=== PATIENT | male | born 1960 | race Caucasian/White ===

== ENCOUNTER → 2020-03-17 16:30 | Outpatient (CLI) | payer BC, SELFPAY | PROVIDERS: PCP Family Medicine | DX: R06.02 Shortness of breath (principal); R52 Pain, unspecified | CPT/HCPCS: 87635; U0003 ==

== ENCOUNTER 2020-09-17 10:23 | Emergency (ER) | payer BC, SELFPAY ==
[2020-09-17 10:23] VITALS: BP 153/75; PULSE 64; RESP 20; TEMP 36.2; O2SAT 97; BMI 30.2
--- NOTE | 2020-09-17 10:40 | EKG12_ITS ---
Test Reason : CP Blood Pressure : / mmHG Vent. Rate : 067 BPM Atrial Rate : 067 BPM P-R Int : 134 ms QRS Dur : 082 ms QT Int : 376 ms P-R-T Axes : 017 -06 040 degrees QTc Int : 397 ms Normal sinus rhythm with sinus arrhythmia Normal ECG Confirmed by AZAEL MARCUS, JESSICA ([id number]), technical editor HERNAN JACINTO ([id number]) on 09/19/2020 8:22:53 AM Referred By: AMARA Confirmed By:JESSICA ADDISON MD
--- NOTE | 2020-09-17 10:40 | RAD_ITS ---
STUDY: X-RAY CHEST REASON FOR EXAM: Male, 60 years old. cough, congestion, -- sob on exertion and chest pain TECHNIQUE: Single AP portable view of the chest. COMPARISON: 01/30/2015 FINDINGS: The lungs are clear and expanded. There is no demonstrated pleural abnormality. Normal size heart. Normal mediastinum and judy. Normal visualized pulmonary arteries. Normal visualized aortic arch and descending thoracic aorta. Normal visualized thoracic spine. Normal visualized ribs, clavicles, and shoulders. There is no demonstrated abnormality of the visualized soft tissue structures of the upper abdomen. RAD/Chest 1 View (Portable) IMPRESSION: No evidence of acute cardiopulmonary process. Electronically Signed: Jesús Rothman DO at 11:21 EST , Service support ,
--- NOTE | 2020-09-17 10:42 | ED.VISSUMM ---
- ER Visit Summary Date of Service: 09/17/20 Chief Complaint: [Cough and chest pain] History of Present Illness: The patient is a 60 M [presents to the emergency department with complaint of a cough that has had for several months. Patient states that he has been tested for COVID-19 x2 and has been negative both times. Patient's last test was about 2 weeks ago. Patient states that he has had multiple people at work that were positive for Covid. Today he went out into the cold air about an hour and a half ago and developed some chest discomfort tightness in the left upper chest. He denies any nausea or vomiting. He denies any radiation of the pain. Patient was seen at urgent care and because of the chest pain was referred to the emergency department. Patient states that he has had 2 heart attacks and has 2 cardiac stents. He thinks the last time he had stents placed was more than 4 5 years ago at the [facility]. Patient denies recent travel or surgery. Patient denies any fevers. Cough is nonproductive. Patient states he does have a history of asthma and has a as needed inhaler but has not been using it. Patient has history of diabetes. Patient did take his aspirin and Plavix this morning.] Physical Examination: [HEENT-PERRLA, EOMI. Cranial nerves II through XII grossly intact. TMs clear. Mucous membranes moist. No adenopathy. Cardiovascular-regular rate and rhythm without murmur or ectopy Lungs-clear to auscultation, chest wall stable without crepitus or subcu emphysema Abdomen-normoactive bowel sounds, soft, nontender, no rebound or rigidity, no peritoneal signs. Extremities-intact ?4, normal range of motion, normal pulses, atraumatic] Test Results: EKG obtained arrival shows sinus rhythm with a ventricular rate of 67 bpm with no acute segment changes. CBC with it was normal. Chemistries unremarkable. BUN was 21 and creatinine 1.36. Troponin was less than 0.015. D-dimer was 0.33. Covid test was negative. Chest x-ray 1 view obtained read by myself as no acute disease process. There is no evidence of infiltrate, pneumothorax, or pneumomediastinum. Radiology in agreement. [] Emergency Department Course and Treatment: [IV line established on arrival. Patient was placed on a cardiac cath lab technologist. Patient was given sublingual nitro which he did not really feel helped his discomfort. Over time he started feeling significantly improved. I recommended admission for further work-up and evaluation of his chest pain and concerned about cardiac issue and acute coronary type syndrome given his history of LA x2 and multiple stents. Patient is refusing admission. He understands his heart enzymes can take 6 or 8 hours to elevate. I recommended stress testing and further evaluation as I felt he was high risk. Patient stating that he does not have good insurance and this felt different than the last time he had his heart attacks and does not feel like he is having a heart attack and does not want to stay. Patient understands he may return to the emergency department at any time if symptoms persist or worsen. Patient will sign out AGAINST MEDICAL ADVICE. Patient is competent and understands my concerns.] Treatment Plan: [Patient advised to follow-up with primary care physician at the earliest possible time. Patient to return if worsening chest pain, increasing shortness of breath, or condition should worsen anyway.] Disposition: [Signed out AGAINST MEDICAL ADVICE] Impression: [Chest pain-etiology uncertain] This note was generated with [employer] dictation software. It may contain incorrect words, spelling, and punctuation that were not noted in review of the chart prior to signing ED Disposition - Plan for ED Patient: Referrals: Nitin Malagon MD [Primary Care Provider] -
[2020-09-17 10:51] LABS: Absolute Lymphocyte Count 1.73 X10^3/uL (0.83-4.51); Absolute Neutrophil Count 4.2 X10^3/uL (2.0-7.7); Basophil# 0.03 X10^3/uL; Basophil% 0.4 % (0-1); Eosinophil# 0.23 X10^3/uL; Eosinophils% 3.4 % (0-5); Hemoglobin 13.6 g/dL (13.0-16.5); Lymphocyte # 1.73 X10^3/ul (4.0); Lymphocyte % 25.9 % (19-41); Mean Corp Hgb Conc 32.4 g/dL (32-36); Mean Corpuscular Hgb 27.9 pg (27.0-32.0); Mean Corpuscular Volume 86.2 fL (80-94); Mean Platelet Vol. 10.2 fl (6.2-12.0); Monocyte# 0.45 X10^3/uL; Monocyte% 6.7 % (0-10); NRBC Flagged by Analyzer 0 % (0-5); Neutrophil # 4.23 X10^3/uL (2.7-7.7); Neutrophil % 63.3 % (47-70); Platelet Count 191 K/mm3 (150-450); RBC Distribution Width CV 12.1 % (11.6-14.6); RBC Distribution Width SD 38.5 fl (35.1-43.9); Red Blood Count 4.87 M/mm3 (4.6-6.2); White Blood Count 6.7 K/mm3 (4.4-11.0)
[2020-09-17] MEDS: 0.9% Normal Saline 1,000 ML 150 ML IV (11:01)
[2020-09-17 11:02] VITALS: BP 179/61; PULSE 68
[2020-09-17] MEDS: Nitroglycerin SL (ED/IMG/CATH) 0.4 MG TABLET SUBLINGUAL ×3 (11:02→11:12)
[2020-09-17 11:06] LABS: D-Dimer Quantitative (DVT/PE) 0.33 FEU/ug/m (0.27-0.49)
[2020-09-17 11:07] VITALS: BP 147/70; PULSE 68
[2020-09-17 11:10] LABS: Anion Gap 8 (5-15); BUN 21 mg/dL (7-18); BUN/Creat Ratio 15.4 RATIO (10-20); Calcium,Total 10.2 mg/dL (8.5-10.1); Chloride 107 mmol/L (98-107); Creatinine, Serum 1.36 mg/dL (0.70-1.30); EST Glomerular Filtration Rate 57 mL/min (>60); Est Glom Filt Rate - Afr Amer 68 mL/min (>60); Estimated Creatinine Clearance 55.18 ml/min; Glucose 172 mg/dL (74-106); Potassium 4.8 mmol/L (3.5-5.1); Sodium Level 137 mmol/L (136-145)
[2020-09-17 11:12] VITALS: BP 137/71; PULSE 70
[2020-09-17 11:57] VITALS: BP 153/78; PULSE 70; RESP 14; O2SAT 96
--- NOTE | 2020-09-17 12:00 | ED.DEP ---
ED Disposition - Plan for ED Patient: Instructions: ED Chest Pain, Uncertain Cause Referrals: Nitin Malagon MD [Primary Care Provider] - As soon as possible
--- NOTE | 2020-09-17 12:06 | ED.RN ---
Pt states he does not want to stay. States it's not my heart then asks this RN, so what's wrong with me? Informed pt that Dr. Solis wanted to admit him to the hospital for observation and possible additional testing and pt states again well if nothing is wrong with me why do i need to stay? Pt given AMA form and encouraged to read it before signing and pt looked at it then handed it back to this RN and states i don't have to sign it and i'm not going to. Refused a copy. Asked this RN what's your name. Name provided and pt d/c.
== END 2020-09-17 11:57 | disposition left against medical advice (07) ==
LOC: ED 11:18
PROVIDERS: Emergency Provider Emergency Medicine; PCP Family Medicine
DX: R07.9 Chest pain, unspecified (principal); I25.10 Atherosclerotic heart disease of native coronary artery without angina pectoris; I25.2 Old myocardial infarction; E11.9 Type 2 diabetes mellitus without complications; J45.909 Unspecified asthma, uncomplicated; Z95.5 Presence of coronary angioplasty implant and graft; Z79.02 Long term (current) use of antithrombotics/antiplatelets; Z79.82 Long term (current) use of aspirin; Z79.84 Long term (current) use of oral hypoglycemic drugs; Z79.899 Other long term (current) drug therapy; Z53.29 Procedure and treatment not carried out because of patient's decision for other reasons
CPT/HCPCS: 71045; 80048; 84484; 85025; 85379; 87426; 93005; 96360; 99285; J7030; A4216

== ENCOUNTER 2021-05-06 11:22 | Observation (INO) | payer BC, SELFPAY ==
[2021-05-06] VITALS (12 sets, daily range): BP systolic 142–183; BP diastolic 75–89; PULSE 76–89; RESP 12–18; TEMP 36.3–37.4; O2SAT 95–100; BMI 30.4; BMI 31.1
--- NOTE | 2021-05-06 12:03 | RAD_ITS ---
STUDY: X-RAY - RIGHT FOOT CLINICAL: Male, 61 years old. ? Osteo TECHNIQUE: 3 view(s) of the foot. COMPARISON: None. FINDINGS: Normal talus, calcaneus, and tarsal bones. Moderate plantar calcaneal enthesophyte. Normal visualized subtalar, talonavicular, calcaneocuboid, tarsal and tarsometatarsal articulations. Normal metatarsi. Normal metatarsophalangeal joint of the great toe. Normal tibial and fibular sesamoid bones. Normal interphalangeal joint of the great toe. Normal phalanges of the great toe. Normal second through fifth metatarsophalangeal joints. Normal interphalangeal joints and phalanges of the lesser toes. Soft tissue swelling the first digit with a radiolucency involving the tibial aspect of the digit near the interphalangeal joint worrisome for an ulcer. Associated periosteal reaction and bony destruction of the tibial aspect of the base of the first distal phalanx worrisome for osteomyelitis. RAD/Foot min 3 Views IMPRESSION: Suspect cellulitis with ulcer of the first digit with osteomyelitis of the tibial aspect of the base of the first distal phalanx. Electronically Signed: Manfred Broderick MD at 12:43 EDT Tel , Service support ,
[2021-05-06 12:37] LABS: Absolute Lymphocyte Count 1.16 X10^3/uL (0.83-4.51); Absolute Neutrophil Count 5.5 X10^3/uL (2.0-7.7); Basophil# 0.02 X10^3/uL; Basophil% 0.3 % (0-1); Eosinophil# 0.18 X10^3/uL; Eosinophils% 2.4 % (0-5); Hemoglobin 11.7 g/dL (13.0-16.5); Lymphocyte # 1.16 X10^3/ul (0.83-4.51); Lymphocyte % 15.8 % (19-41); Mean Corp Hgb Conc 33.4 g/dL (32-36); Mean Corpuscular Hgb 27.1 pg (27.0-32.0); Mean Platelet Vol. 9.4 fl (6.2-12.0); Monocyte# 0.43 X10^3/uL; Monocyte% 5.9 % (0-10); NRBC Flagged by Analyzer 0 % (0-5); Neutrophil # 5.52 X10^3/uL (2.7-7.7); Neutrophil % 75.1 % (47-70); Platelet Count 270 K/mm3 (150-450); RBC Distribution Width CV 14.1 % (11.6-14.6); RBC Distribution Width SD 41.7 fl (35.1-43.9); Red Blood Count 4.32 M/mm3 (4.6-6.2); White Blood Count 7.4 K/mm3 (4.4-11.0)
[2021-05-06 12:40] LABS: Erythrocyte Sedimentation Rate 28 mm/hr (0-20)
[2021-05-06 12:46] LABS: Anion Gap 7 (5-15); BUN 17 mg/dL (7-18); Calcium,Total 9.6 mg/dL (8.5-10.1); Chloride 100 mmol/L (98-107); Creatinine, Serum 1.31 mg/dL (0.70-1.30); EST Glomerular Filtration Rate 59 mL/min (>60); Est Glom Filt Rate - Afr Amer 71 mL/min (>60); Estimated Creatinine Clearance 56.56 ml/min; Glucose 216 mg/dL (74-106); Potassium 4.6 mmol/L (3.5-5.1); Sodium Level 133 mmol/L (136-145)
[2021-05-06 12:59] LABS: Lactic Acid 1.9 mmol/L (0.4-1.9)
--- NOTE | 2021-05-06 14:11 | EX.ED.DYSGE1 ---
HPI History of Present Illness Chief Complaint: Wound Narrative Narrative: Patient is a 61-year-old male with past medical history of hypertension hyperlipidemia and diabetes. He states he just takes oral medications for his diabetes. He reports that he developed a ulcer to his right great toe and has been seeing wound care and going to hyperbaric treatment. He states that they noticed his right great toe was becoming red and swollen and placed him on Bactrim and Keflex. He states he has been on these for approximately 10 days and has had persistent worsening of symptoms. He denies any fevers or chills and states his blood sugars have been near their baseline. However he was evaluated at wound care today and with the worsening symptoms despite taking antibiotics was advised to come to the hospital for evaluation [facility] Medical History Diabetes mellitus Heart disease HTN (hypertension) Toe infection Home Medications albuterol sulfate 1 - 2 puff INHALATION Q4H PRN PRN 09/17/20 [History Last Taken Unknown] aspirin 81 mg PO DAILY@0800 09/17/20 [History Last Taken Unknown] carvedilol 6.25 mg PO BID 09/17/20 [History Last Taken Unknown] clopidogrel 75 mg PO DAILY 09/17/20 [History Last Taken Unknown] fluticasone propionate 2 puff IH DAILY 09/17/20 [History Last Taken Unknown] glimepiride 8 mg PO DAILY 09/17/20 [History Last Taken Unknown] lisinopril 20 mg PO DAILY 09/17/20 [History Last Taken Unknown] metformin 1,000 mg PO BID 09/17/20 [History Last Taken Unknown] rosuvastatin 10 mg PO QHS 09/17/20 [History Last Taken Unknown] sertraline 100 mg PO DAILY 09/17/20 [History Last Taken Unknown] cephalexin 500 mg PO Q6H 05/06/21 [History Last Taken Unknown] sitagliptin [Januvia] 100 mg PO DAILY 05/06/21 [History Last Taken Unknown] tramadol 50 mg PO Q6H 05/06/21 [History Last Taken Unknown] Allergy/AdvReac Type Severity Reaction Status Date / Time No Known Allergies Allergy Verified 05/06/21 11:44 Surgical History (Updated 05/06/21 @ 11:41 by José Miguel Shetty) Hx of cardiac cath Social History Smoking Status: Never smoker ROS ROS ED Constitutional Constitutional ED: Denies chills or fever(s) ENT ENT ED: Denies sore throat Cardiovascular Cardiovascular: Denies chest pain Respiratory/Chest Respiratory/Chest: Denies cough or dyspnea Gastrointestinal Gastrointestinal: Denies abdominal pain, diarrhea, nausea or vomiting Genitourinary Genitourinary ED: Denies dysuria Musculoskeletal Musculoskeletal: Reports other Details: Positive right great toe pain ; Denies myalgias Integumentary Reports other Details: Positive right great toe redness and swelling ; Denies rash Neurologic Neurologic: Denies headache(s) Hematologic/Lymphatic Hematologic/Lymphatic: Denies easy bleeding or easy bruising EXAM Physical Exam Const Vital Signs: 05/06/21 11:23 05/06/21 11:35 05/06/21 11:43 Temperature 97.3 F L 98.4 F 98.4 F Temperature Source Temporal Oral Oral Pulse Rate 81 78 79 Respiratory Rate 18 16 16 Blood Pressure 165/87 H 165/80 H 165/80 H Blood Pressure Mean 113 108 108 Pulse Ox 99 97 97 Oxygen Delivery Method Room Air Room Air Room Air 05/06/21 12:33 05/06/21 13:00 Temperature 98.7 F 98.7 F Temperature Source Oral Temporal Pulse Rate 79 82 Respiratory Rate 12 18 Blood Pressure 165/87 H 142/79 H Blood Pressure Mean 113 100 Pulse Ox 97 98 Oxygen Delivery Method Room Air Room Air Positive well nourished and well developed General Appearance ED: well developed HEENT Reports moist mucous membranes Eyes PERRL and EOMs intact bilaterally Neck supple Resp normal respiratory effort and clear to auscultation bilaterally Cardio regular rate and regular rhythm GI normal to inspection, nondistended, normoactive bowel sounds, non-tender and non-distended Auscultation: normoactive bowel sounds Palpation: soft Extremity Extremity Narrative: Right lower extremity is neurovascularly intact. Patient has asymmetric erythema warmth and swelling of the right great toe that extends back into the proximal portion of the foot with faint streaking to the ankle. There is some fluctuance of the dorsal aspect of the right great toe as well concerning for possible abscess. Patient does have a diabetic ulcer on the medial aspect of the right great toe however this shows no obvious secondary changes to suggest infection with no purulent discharge present Neuro oriented x3 and CN's II-XII intact bilaterally Sensorium / Orientation: alert Psych mental status grossly normal Skin Skin Narrative: Soft tissue changes to the right great toe as documented above MDM MDM MDM Narrative Medical decision making narrative: Patient into the ER afebrile. His exam is consistent with cellulitis and there is concern for underlying osteomyelitis especially with the fact he has been failing outpatient therapy. Basic work-up was obtained does show an elevated CRP at 75 but normal white count and lactic acid value. X-ray however does question changes concerning for osteomyelitis. Therefore at this time he will be started on Vanco and Zosyn after blood cultures obtained. With his report of recent antibiotic use and continuing or worsening of infection he does qualify for failure of outpatient treatment. Therefore patient will be mated to the hospital at this time for continued IV antibiotics and evaluation by podiatry Lab Data Attestation: I reviewed the patient's lab results. Labs: Laboratory Results - last 24 hr 05/06/21 05/06/21 05/06/21 12:19 12:20 12:20 WBC 7.4 RBC 4.32 L Hgb 11.7 L Hct 35.0 L MCV 81.0 MCH 27.1 MCHC 33.4 RDW Std Deviation 41.7 RDW Coeff of Divya 14.1 Plt Count 270 MPV 9.4 Immature Gran % (Auto) 0.500 Neut % (Auto) 75.1 H Lymph % (Auto) 15.8 L [place] % (Auto) 5.9 Eos % (Auto) 2.4 Baso % (Auto) 0.3 Absolute Neuts (auto) 5.5 Absolute Lymphs (auto) 1.16 Nucleated RBC % 0 ESR 28 H Sodium 133 L Potassium 4.6 Chloride 100 Carbon Dioxide 26.0 Anion Gap 7 BUN 17 Creatinine 1.31 H Estim Creat Clear Calc 56.56 Est GFR (MDRD) Af Amer 71 Est GFR (MDRD) Non-Af 59 L BUN/Creatinine Ratio 13.0 Glucose 216 H Lactic Acid 1.9 Calcium 9.6 C-React Prot Ext Range 75.50 H Radiography Diagnostic Testing: Radiology Impression Foot X-Ray 05/06/21 12:03 IMPRESSION: Suspect cellulitis with ulcer of the first digit with osteomyelitis of the tibial aspect of the base of the first distal phalanx. Electronically Signed: Manfred Broderick MD at 12:43 EDT Tel , Service support , Discharge Plan Triage Chief Complaint: Wound ED Provider: Suraj Bosch Dx/Rx/DC Orders Clinical Impression: Osteomyelitis, Failure of outpatient treatment Prescriptions: No Action fluticasone propionate 50 MCG blister with device 2 puff IH DAILY RF: 0 carvedilol 6.25 MG tablet 6.25 mg PO BID RF: 0 lisinopril 20 MG tablet 20 mg PO DAILY RF: 0 sertraline 100 MG tablet 100 mg PO DAILY RF: 0 clopidogrel 75 MG tablet 75 mg PO DAILY RF: 0 metformin 1,000 MG tablet 1,000 mg PO BID RF: 0 glimepiride 4 MG tablet 8 mg PO DAILY RF: 0 aspirin 81 MG tablet,chewable 81 mg PO DAILY@0800 RF: 0 albuterol sulfate 1 INHALER inhaler 1 - 2 puff INHALATION Q4H PRN PRN (Reason: Wheezing) RF: 0 rosuvastatin 10 MG tablet 10 mg PO QHS RF: 0 tramadol 50 mg tablet 50 mg PO Q6H RF: 0 cephalexin 500 mg capsule 500 mg PO Q6H RF: 0 Januvia 100 mg tablet 100 mg PO DAILY RF: 0 Primary Care Provider: Nitin Malagon Referrals: Nitin Malagon MD [Primary Care Provider] - Disposition Disposition: Acute Care [facility]
--- NOTE | 2021-05-06 14:39 | EKG12_ITS ---
Test Reason : Blood Pressure : / mmHG Vent. Rate : 079 BPM Atrial Rate : 079 BPM P-R Int : 148 ms QRS Dur : 080 ms QT Int : 390 ms P-R-T Axes : 013 -12 013 degrees QTc Int : 447 ms Normal sinus rhythm Inferior infarct , age undetermined Abnormal ECG Confirmed by AZAEL MARCUS, JESSICA ([id number]), publications editor HERNAN JACINTO ([id number]) on 05/09/2021 9:58:48 AM Referred By: LILLY Confirmed By:JESSICA ADDISON MD
--- NOTE | 2021-05-06 14:59 | HP.PCM.HOS_ITS ---
HPI - General General Date of Admission: 05/06/21 Chief Complaint: Right great toe ulcer HPI Narrative ROSETTA STEWART, is a 61 M with 3 of coronary artery status post stents, diabetes mellitus type 2 came to ED for right great toe ulcer for 2 to 3 months. Patient follows forest officer in [facility]. This all started after he had partial right great toenail removal about a year ago which was very slow to heal. After that he noticed ulcer about 3 months ago for which he had been undergoing hyperbaric therapy for last 6 weeks, total 40 sessions and completed 1 week course of Bactrim and Keflex but is still not healing. Patient further said he had MRI about 6 days ago which was inconclusive and an x-ray on 05/01 which did not report osteomyelitis. Patient had x-ray in [facility] ER reported cellulitis with ulcer of first visit with osteomyelitis of the base of first distal phalanx. Patient has normal WBC but elevated ESR and CRP. No reported history of fever chills, vomiting, headache or other systemic symptoms of infection. Patient received 1 dose of vancomycin and Zosyn in ED. He further said his blood sugar is about 180 mg/dL but not above 200 mg/dL. He had cardiac stents 2 to 3 years ago and reported good exercise capacity. [facility] Medical History Diabetes mellitus Heart disease HTN (hypertension) Toe infection Home Medications albuterol sulfate 1 - 2 puff INHALATION Q4H PRN PRN 09/17/20 [History Last Taken Unknown] aspirin 81 mg PO DAILY@0800 09/17/20 [History Last Taken Unknown] carvedilol 6.25 mg PO BID 09/17/20 [History Last Taken Unknown] clopidogrel 75 mg PO DAILY 09/17/20 [History Last Taken Unknown] fluticasone propionate 2 puff IH DAILY 09/17/20 [History Last Taken Unknown] glimepiride 8 mg PO DAILY 09/17/20 [History Last Taken Unknown] lisinopril 20 mg PO DAILY 09/17/20 [History Last Taken Unknown] metformin 1,000 mg PO BID 09/17/20 [History Last Taken Unknown] rosuvastatin 10 mg PO QHS 09/17/20 [History Last Taken Unknown] sertraline 100 mg PO DAILY 09/17/20 [History Last Taken Unknown] cephalexin 500 mg PO Q6H 05/06/21 [History Last Taken Unknown] sitagliptin [Januvia] 100 mg PO DAILY 05/06/21 [History Last Taken Unknown] tramadol 50 mg PO Q6H 05/06/21 [History Last Taken Unknown] Allergy/AdvReac Type Severity Reaction Status Date / Time No Known Allergies Allergy Verified 05/06/21 11:44 Surgical History Hx of cardiac cath Social History Smoking Status: Never smoker ROS ROS Narrative Constitutional: No fever or chills. Does not report fatigue and weakness HEENT: Reports systems reviewed and no addt'l complaints, except as documented Respiratory/Chest: Denies chest pain, shortness of breath at rest or with exertion Gastrointestinal: Denies coffee ground emesis, hematemesis or vomiting Genitourinary: Denies burning urination or new urinary tract symptoms Musculoskeletal: Reports joint pain and limited range of motion Neurologic: Denies seizure-like activity skin: Ulcer as mentioned in HPI Endocrinology: Reports systems reviewed and no addt'l complaints, except as documented Hematologic/Lymphatic: Reports systems reviewed and no addt'l complaints, except as documented Rest 12 ROS are negative except as mentioned in HPI Vital Signs Vital Signs Vital Signs: 05/06/21 11:23 05/06/21 11:35 05/06/21 11:43 Temperature 97.3 F L 98.4 F 98.4 F Temperature Source Temporal Oral Oral Pulse Rate 81 78 79 Respiratory Rate 18 16 16 Blood Pressure 165/87 H 165/80 H 165/80 H Blood Pressure Mean 113 108 108 Pulse Ox 99 97 97 Oxygen Delivery Method Room Air Room Air Room Air 05/06/21 12:33 05/06/21 13:00 05/06/21 14:23 Temperature 98.7 F 98.7 F 98.9 F Temperature Source Oral Temporal Oral Pulse Rate 79 82 79 Respiratory Rate 12 18 18 Blood Pressure 165/87 H 142/79 H 164/82 H Blood Pressure Mean 113 100 109 Pulse Ox 97 98 97 Oxygen Delivery Method Room Air Room Air Room Air 05/06/21 14:36 Temperature 98.7 F Temperature Source Oral Pulse Rate 89 Respiratory Rate 16 Blood Pressure 183/89 H Blood Pressure Mean 120 Pulse Ox 99 Oxygen Delivery Method Room Air Weight Weight: 200 lb Body Mass Index (BMI) 30.4 Physical Exam Narrative General: Alert, Oriented x3, Cooperative. obese BMI 30.4 kg/m?. HEENT: Atraumatic, PERRLA, EOMI, Normocephalic Oral: No Gingival or Mucosal Lesions/ Ulcerations Neck: Supple, No JVD, Negative Carotid Bruits Lungs: Air entry diminished in bilateral lung bases. No crepitation/rhonchi Cardiovascular: Regular rate, Regular Rhythm, Normal S1, Normal S2, No murmurs Abdomen: Bowel Sounds Present, Soft, Non Tender, Non-Distended : No renal angle tenderness. No suprapubic tenderness. Extremities: No edema, Capillary Refill Less than 3 Seconds Skin: Small deep linear ulcer over medial aspect of right great toe, reaching to deep muscles. Musculoskeletal: No Tenderness to Palpation of Joints or Extremities Neurological: Cranial nerves II-XII grossly intact, DTR 2+/4 and Symmetrical, Neuro grossly intact Psych/Mental Status: Normal Affect, Appropriate. Results Lab / Micro Data Result Diagrams: 05/06/21 12:20 05/06/21 12:20 Labs: Laboratory Results - last 24 hr 05/06/21 12:19: Lactic Acid 1.9 05/06/21 12:20: WBC 7.4, RBC 4.32 L, Hgb 11.7 L, Hct 35.0 L, MCV 81.0, MCH 27.1, MCHC 33.4, RDW Std Deviation 41.7, RDW Coeff of Divya 14.1, Plt Count 270, MPV 9.4, Immature Gran % (Auto) 0.500, Neut % (Auto) 75.1 H, Lymph % (Auto) 15.8 L, Coleman % (Auto) 5.9, Eos % (Auto) 2.4, Baso % (Auto) 0.3, Absolute Neuts (auto) 5.5, Absolute Lymphs (auto) 1.16, Nucleated RBC % 0, ESR 28 H 05/06/21 12:20: Sodium 133 L, Potassium 4.6, Chloride 100, Carbon Dioxide 26.0, Anion Gap 7, BUN 17, Creatinine 1.31 H, Estim Creat Clear Calc 56.56, Est GFR (MDRD) Af Amer 71, Est GFR (MDRD) Non-Af 59 L, BUN/Creatinine Ratio 13.0, Glucose 216 H, Calcium 9.6, C-React Prot Ext Range 75.50 H Micro: Microbiology 05/06/21 12:13 Nasal Secretion SARS-CoV-2 Antigen (Rapid) - Final Radiology Impression Foot X-Ray 05/06/21 12:03 IMPRESSION: Suspect cellulitis with ulcer of the first digit with osteomyelitis of the tibial aspect of the base of the first distal phalanx. Electronically Signed: Manfred Broderick MD at 12:43 EDT Tel , Service support , Assessment & Plan Assessment/Plan (1) Osteomyelitis: PLAN: 1. Right great toe chronic nonhealing deep ulcer with suspicion of osteomyelitis: Patient is being admitted to [facility] floor. Discussed with the forest officer Dr. Orosco. She agreed to do deep culture and then start the antibiotic but unfortunately patient had 1 dose of Zosyn in ED. After that, patient can be started on vancomycin and Zosyn for broad-spectrum coverage of aerobes, anaerobes and MRSA as ulcer is not healing for 2 to 3 months and had antibiotic as an outpatient. Further care as per forest officer. 2. Coronary artery status post stents: Patient denies any recent angina or MA. 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 His last stent was 2 to 3 years ago therefore Plavix is being held in anticipation of requirement of surgery. Continue baby aspirin and other cardiac medications including carvedilol and rosuvastatin 3. CKD stage IIIa: Patient creatinine is 1.31 and was 1.36 in September 2020. BUN normal. Continue lisinopril. 4. Hypertension: Blood pressure is high in ED 183/69, 164/82. We will start on amlodipine 5 mg daily. 5. Diabetes mellitus type 2, uncontrolled: A1c tomorrow a.m. Accu-Cheks before meals and at bedtime. Hold oral antidiabetic home regimen. Glucose in BMP 216. Started on Lantus 15 units subcutaneous at bedtime daily. Humalog 5 units subcutaneous 3 times daily AC with meals. 6. Other comorbidities include asthma, mild anxiety: Asthma is stable With no exacerbation continue his home medications routine fluticasone inhaler. Albuterol inhaler as needed. Hold tramadol. Living will/advanced directive/end of life care: Patient does not have living will or advanced directive. After discussion of benefits/risks procedures involved with full code, DNR CC arrest and DNR CC, the patient opted for DNR-CC Arrest with no intubation Patient does not want artificial life support including intubation, tube feed, ventilator and/chest compression, central venous catheter, vasopressor and DC shock if needed Total time spent in [id number] encounter in discussion of advanced directive 16 minutes. Microbiology Past 72 Hours 05/06/21 12:13 Nasal Secretion SARS-CoV-2 Antigen (Rapid) - Final Laboratory Results 05/06/21 12:19: Lactic Acid 1.9 05/06/21 12:20: WBC 7.4, RBC 4.32 L, Hgb 11.7 L, Hct 35.0 L, MCV 81.0, MCH 27.1, MCHC 33.4, RDW Std Deviation 41.7, RDW Coeff of Divya 14.1, Plt Count 270, MPV 9.4, Immature Gran % (Auto) 0.500, Neut % (Auto) 75.1 H, Lymph % (Auto) 15.8 L, Coleman % (Auto) 5.9, Eos % (Auto) 2.4, Baso % (Auto) 0.3, Absolute Neuts (auto) 5.5, Absolute Lymphs (auto) 1.16, Nucleated RBC % 0, ESR 28 H 05/06/21 12:20: Sodium 133 L, Potassium 4.6, Chloride 100, Carbon Dioxide 26.0, Anion Gap 7, BUN 17, Creatinine 1.31 H, Estim Creat Clear Calc 56.56, Est GFR (MDRD) Af Amer 71, Est GFR (MDRD) Non-Af 59 L, BUN/Creatinine Ratio 13.0, Glucose 216 H, Calcium 9.6, C-React Prot Ext Range 75.50 H 05/06/21 12:20: Phosphorus Pending, Prealbumin Pending Charges/Coding Visit Charges Inpatient E&M: 92647 Init Hosp L3 Procedures Hospitalists Procedures: 57843 Advncd Care Plan 30 Min
--- NOTE | 2021-05-06 15:01 | PCS.PANDOC ---
PANDEMIC DOCUMENTATION INITIATED: Date: 03/26/2021 Time: 190
[2021-05-06 15:39] LABS: Phosphorus 2.6 mg/dL (2.5-4.9)
--- NOTE | 2021-05-06 15:41 | ED.RN ---
dr. perez at bedside.
--- NOTE | 2021-05-06 16:01 | PCM.CONS.GEN ---
Assessment & Plan Assessment/Plan (1) Osteomyelitis: (2) Failure of outpatient treatment: (3) Ulcer of right foot with necrosis of bone: (4) Type 2 diabetes mellitus with diabetic polyneuropathy: (5) Hallux limitus of right foot: PLAN: I reviewed and discussed his case today. Debridement was performed to the ulcer site after verbal consent with a 15 blade scalpel to excise devitalized subcutaneoius, biofilm, slough, and fibrous tissue. Pressure was applied to maintain hemostasis and he tolerated this well. Post debridement measurement was 7 mm x 3 mm x 3 mm. He is afebrile vital signs stable. His white blood cell count is 7.8, ESR 28, C-reactive protein 75.5. He has a lactic acid of 1.9. Clinically his right foot is infected and there is concern of deeper bone or tissue exposure. It appears he has already been treated for Latif grade 3 ulcer, potentially osteomyelitis at the wound healing center as he has completed hyperbaric oxygen therapy course. After the ulcer was debrided in a subcutaneous excisional manner, a deep wound culture was obtained including aerobic, anaerobic, and MRSA PCR. I recommend requesting medical records. If his MRI was indeed over 2 months old it would be helpful to repeat this. Otherwise, his updated x-ray of the foot obtained today demonstrates osseous destruction and direct correlation with the ulcer site with clinical probe to deep structures with this consistent with osteomyelitis diagnosis. Dressing: Betadine wet-to-dry Offload: Heel weightbearing with surgical shoe. To use assistive device Vascular: He had previous lower extremity intervention and medical records will be recommended prior to ordering any updated vascular tests or consultations. It is noted he has small vessel calcification even on his foot x-ray. Host factors: He is uncontrolled diabetes with a self-reported A1c of over 9%. He understands this in combination with his known vascular disease make healing difficult. I recommend nutritional education to optimize healing. Medical management per primary team is greatly appreciated. I recommend starting broad-spectrum IV antibiotics and initiating an extended course of IV antibiotics for treatment of a Latif grade 3 ulcer with presumed osteomyelitis. He was also educated on all treatment options including amputation. A deep wound culture was obtained today as noted. We discussed the benefits and risks of all treatment options. He refuses an amputation. I recommend infectious disease consultation. I answered all the patient's questions. Thank you for the consultation. Please do not hesitate to call if you have any questions. Natali Orosco DPM, [facility] [phone] HPI Consult Data Date of Consult: 05/06/21 HPI Narrative Reason for Consultation: right great toe chronic ulcer HPI Narrative: ROSETTA STEWART, is a 61 M uncontrolled diabetic (A1C reported over 9) who presents for right great toe ulcer. He is having difficulty explaining the timeline (poor historian), however it appears this ulcer has been present for over 6 months. He reports he had a an ingrown toenail procedure performed and then the dressing compromised his skin and he developed a ulcer on the bottom of his toe. He reports he then underwent vascular intervention to restore the blood flow to his leg which helped initially at first. He relates he is currently following with a cutting department supervisor in [facility] in the [facility] setting. He is also been seen at the [facility] and underwent hyperbaric oxygen therapy. He relates his status worsened within the past 2 weeks in which he noticed redness and anteriorization. He was placed on Keflex which was stopped a couple of days ago and Bactrim in which he completed this yesterday. He still has moderate pain which is not consistent with his baseline and redness extending to the top of the midfoot. At first he said the MRI was 6 days ago and then it sounds like it was really 2 to 3 months ago at a location somewhere in [place]. He also reports he had an x-ray on which was inconclusive for osteomyelitis. He relates he is not offloading in a compliant manner. He recently retired and relates he has been sitting around more. Prior to that he was wearing steel toe shoes. He continues to need to do his yard work. He does have some altered sensation but can feel wound manipulation. He is not able to describe if he is experiencing current claudication symptoms. He relates this is very depressing and he refuses to consider a toe amputation. He reports having a toe amputation would cause him to consider his life. [facility] Medical History (Updated 05/06/21 @ 17:11 by Janay Epperson) Anxiety Chest pain Depression Diabetes mellitus Heart disease HTN (hypertension) Myocardial infarct Toe infection Home Medications albuterol sulfate 1 - 2 puff INHALATION Q4H PRN PRN 09/17/20 [History Last Taken Unknown] aspirin 81 mg PO DAILY@0800 09/17/20 [History Last Taken Unknown] carvedilol 6.25 mg PO BID 09/17/20 [History Last Taken Unknown] clopidogrel 75 mg PO DAILY 09/17/20 [History Last Taken Unknown] fluticasone propionate 2 puff IH DAILY 09/17/20 [History Last Taken Unknown] glimepiride 8 mg PO DAILY 09/17/20 [History Last Taken Unknown] lisinopril 20 mg PO DAILY 09/17/20 [History Last Taken Unknown] metformin 1,000 mg PO BID 09/17/20 [History Last Taken Unknown] rosuvastatin 10 mg PO QHS 09/17/20 [History Last Taken Unknown] sertraline 100 mg PO DAILY 09/17/20 [History Last Taken Unknown] cephalexin 500 mg PO Q6H 05/06/21 [History Last Taken Unknown] sitagliptin [Januvia] 100 mg PO DAILY 05/06/21 [History Last Taken Unknown] tramadol 50 mg PO Q6H 05/06/21 [History Last Taken Unknown] Allergy/AdvReac Type Severity Reaction Status Date / Time No Known Allergies Allergy Verified 05/06/21 11:44 Surgical History (Updated 05/06/21 @ 17:11 by Janay Epperson) History of coronary artery stent placement Hx of cardiac cath Social History Smoking Status: Never smoker ROS Constitutional Constitutional: Denies chills, fatigue or fever(s) Cardiovascular Cardiovascular: Reports pedal edema; Denies claudication or vomiting Gastrointestinal Gastrointestinal: Denies nausea Musculoskeletal Musculoskeletal: Reports extremity pain Integumentary Integumentary: Reports erythema and wounds Psychiatric Psychiatric: Reports depression and suicidal thoughts Physical Exam Const alert and oriented x3 General Appearance: cooperative HEENT normocephalic Extremity Extremity Narrative: No calf tenderness Diminished pulses; dp is palpable hair noted to lower ankle level Muscle wasting noted Decreased loaded first metatarsophalangeal joint range of motion is consistent with hallux limitus General Extremity: edema and no tenderness to palpation of joints or extremities; Negative for cyanosis Skin Skin Narrative: Skin discontinuity to plantar medial right hallux measures approximately 6 x 3 x 3 mm to deep structures and possibly bone. There is hematogenous drainage only. No odor or purulence. There is intense erythema to the toe extending to the dorsal midfoot. There is no fluctuance or bogginess or palpable abscess. Neuro Neuro Narrative: Epicritic sensation light touch and pain with ulcer debridement noted Psych cooperative and affect normal Lab / Micro Data Result Diagrams: 05/06/21 12:20 05/06/21 12:20 Labs: Laboratory Results - last 24 hr 05/06/21 12:19: Lactic Acid 1.9 05/06/21 12:20: WBC 7.4, RBC 4.32 L, Hgb 11.7 L, Hct 35.0 L, MCV 81.0, MCH 27.1, MCHC 33.4, RDW Std Deviation 41.7, RDW Coeff of Divya 14.1, Plt Count 270, MPV 9.4, Immature Gran % (Auto) 0.500, Neut % (Auto) 75.1 H, Lymph % (Auto) 15.8 L, Mcnairy % (Auto) 5.9, Eos % (Auto) 2.4, Baso % (Auto) 0.3, Absolute Neuts (auto) 5.5, Absolute Lymphs (auto) 1.16, Nucleated RBC % 0, ESR 28 H 05/06/21 12:20: Sodium 133 L, Potassium 4.6, Chloride 100, Carbon Dioxide 26.0, Anion Gap 7, BUN 17, Creatinine 1.31 H, Estim Creat Clear Calc 56.56, Est GFR (MDRD) Af Amer 71, Est GFR (MDRD) Non-Af 59 L, BUN/Creatinine Ratio 13.0, Glucose 216 H, Calcium 9.6, C-React Prot Ext Range 75.50 H 05/06/21 12:20: Phosphorus 2.6, Prealbumin 18.0 L Micro: Microbiology 05/06/21 12:13 Nasal Secretion SARS-CoV-2 Antigen (Rapid) - Final Radiology Impression Foot X-Ray 05/06/21 12:03 IMPRESSION: Suspect cellulitis with ulcer of the first digit with osteomyelitis of the tibial aspect of the base of the first distal phalanx. Electronically Signed: Manfred Broderick MD at 12:43 EDT Tel , Service support ,
--- NOTE | 2021-05-06 17:31 | PCS.PANDOC ---
PANDEMIC DOCUMENTATION INITIATED: Date: 03/26/2021 Time: 190
[2021-05-06 17:42] LABS: M R Staph aureus DNA By PCR Negative (Negative); Probe Check PASS; Staph aureus DNA By PCR POSITIVE (Negative)
[2021-05-06 17:46] LABS: Bedside Glucose 109 mg/dL (70-110)
[2021-05-06] MEDS: Enoxaparin 40 MG/0.4 ML Syringe SC (18:09)
[2021-05-06] MEDS: Budesonide Respules 0.5 MG/2 ML AMPUL.NEB. INHALATION (20:44)
[2021-05-06] MEDS: Acetaminophen 325 MG Tablet 650 MG PO (20:52)
--- NOTE | 2021-05-06 21:23 | PCM.RX.CS ---
Consult Pharmacy has been consulted to manage selected antiobiotic: Vancomycin Type of Consult: New start Suspected Infection: Osteomyelitis Labs: Sodium 133 mmol/L (136-145) L 05/06/21 12:20 Potassium 4.6 mmol/L (3.5-5.1) 05/06/21 12:20 Chloride 100 mmol/L (98-107) 05/06/21 12:20 Carbon Dioxide 26.0 mmol/L (21.0-32.0) 05/06/21 12:20 Anion Gap 7 (5-15) 05/06/21 12:20 BUN 17 mg/dL (7-18) 05/06/21 12:20 Creatinine 1.31 mg/dL (0.70-1.30) H 05/06/21 12:20 Est GFR (MDRD) Af Amer 71 mL/min (>60) 05/06/21 12:20 Est GFR (MDRD) Non-Af 59 mL/min (>60) L 05/06/21 12:20 BUN/Creatinine Ratio 13.0 RATIO (10-20) 05/06/21 12:20 Glucose 216 mg/dL (74-106) H 05/06/21 12:20 Microbiology: Microbiology 05/06/21 12:13 Nasal Secretion SARS-CoV-2 Antigen (Rapid) - Final Weight used for dosin.9 kg Estimated Creatinine Clearance: 53 Goal Trough: 15-20 mcg/mL Pharmacy Plan for Drug Dosing: Pharmacy Service will continue to monitor and adjust dosing as required. Medications Vancomycin HCl (Vancomycin) 1,000 mg in 200 mls @ 200 mls/hr IV Q12H MARTINA Discontinued Medications Vancomycin HCl 2,000 mg/ (Sodium Chloride) 540 mls @ 250 mls/hr IV X1 ONE Stop: 05/06/21 14:13 Last Admin: 05/06/21 15:58 Dose: Infused Documented by: Follow-Up Labs: Trough Vancomycin Labs to be done on [date and time ordered]: 05/08 @ 1300
[2021-05-06] MEDS: Carvedilol 6.25 MG Tablet PO (21:31)
[2021-05-06] MEDS: Insulin Lispro 100 UNIT/ML INSULN.PEN SC (21:31)
[2021-05-06] MEDS: 0.9% Saline Lock 10 ML Syringe IV (21:53)
[2021-05-06 23:05] LABS: Bedside Glucose 185 mg/dL (70-110)
[2021-05-07] MEDS: Vancomycin IV 1,000 MG/200 ML BAG 200 MG IV ×2 (01:47→13:28)
[2021-05-07 01:57] VITALS: BP 133/72; PULSE 69; RESP 16; TEMP 36.6; O2SAT 97
[2021-05-07 05:52] LABS: Absolute Neutrophil Count 4.1 X10^3/uL (2.0-7.7); Basophil# 0.02 X10^3/uL; Basophil% 0.3 % (0-1); Eosinophils% 3.3 % (0-5); Hematocrit 34.4 % (40-54); Hemoglobin 11.2 g/dL (13.0-16.5); Lymphocyte % 18.4 % (19-41); Mean Corp Hgb Conc 32.6 g/dL (32-36); Mean Corpuscular Hgb 26.9 pg (27.0-32.0); Mean Corpuscular Volume 82.5 fL (80-94); Mean Platelet Vol. 9.5 fl (6.2-12.0); Monocyte# 0.51 X10^3/uL; Monocyte% 8.5 % (0-10); NRBC Flagged by Analyzer 0 % (0-5); Neutrophil # 4.09 X10^3/uL (2.7-7.7); Neutrophil % 68.5 % (47-70); Platelet Count 290 K/mm3 (150-450); RBC Distribution Width SD 42.5 fl (35.1-43.9); Red Blood Count 4.17 M/mm3 (4.6-6.2)
[2021-05-07 06:35] LABS: Anion Gap 9 (5-15); BUN 14 mg/dL (7-18); Calcium,Total 9.5 mg/dL (8.5-10.1); Chloride 103 mmol/L (98-107); Creatinine, Serum 1.17 mg/dL (0.70-1.30); EST Glomerular Filtration Rate 67 mL/min (>60); Est Glom Filt Rate - Afr Amer 81 mL/min (>60); Estimated Creatinine Clearance 63.33 ml/min; Glucose 129 mg/dL (74-106); Potassium 4.4 mmol/L (3.5-5.1); Sodium Level 138 mmol/L (136-145)
--- NOTE | 2021-05-07 06:49 | PCM.PROGNOTE ---
Subjective Subjective This 61-year-old diabetic male was seen bedside for right chronic great toe ulcer with osteomyelitis. He has failed outpatient management. He did well overnight with IV antibiotics. He denies fever, chill, nausea, vomiting. He denies foot pain. Objective Data Objective Data Vital Signs: Vital Signs Temp Pulse Resp BP Pulse Ox 97.9 F 69 16 133/72 H 97 05/07/21 01:57 05/07/21 01:57 05/07/21 01:57 05/07/21 01:57 05/07/21 01:57 Oxygen Delivery Method Room Air Weight: 92.9 kg Body Mass Index (BMI) 31.1 Intake & Output: Intake and Output for Last 24 Hours 05/05/21 05/06/21 05/07/21 23:59 23:59 23:59 Intake Total 621.25 / 621.25 250 / 250 Balance 621.25 / 621.25 250 / 250 Lab / Micro Data Result Diagrams: 05/07/21 05:20 05/07/21 05:20 Labs: Laboratory Results - last 24 hr 05/06/21 12:19: Lactic Acid 1.9 05/06/21 12:20: WBC 7.4, RBC 4.32 L, Hgb 11.7 L, Hct 35.0 L, MCV 81.0, MCH 27.1, MCHC 33.4, RDW Std Deviation 41.7, RDW Coeff of Divya 14.1, Plt Count 270, MPV 9.4, Immature Gran % (Auto) 0.500, Neut % (Auto) 75.1 H, Lymph % (Auto) 15.8 L, Upson % (Auto) 5.9, Eos % (Auto) 2.4, Baso % (Auto) 0.3, Absolute Neuts (auto) 5.5, Absolute Lymphs (auto) 1.16, Nucleated RBC % 0, ESR 28 H 05/06/21 12:20: Sodium 133 L, Potassium 4.6, Chloride 100, Carbon Dioxide 26.0, Anion Gap 7, BUN 17, Creatinine 1.31 H, Estim Creat Clear Calc 56.56, Est GFR (MDRD) Af Amer 71, Est GFR (MDRD) Non-Af 59 L, BUN/Creatinine Ratio 13.0, Glucose 216 H, Calcium 9.6, C-React Prot Ext Range 75.50 H 05/06/21 12:20: Phosphorus 2.6, Prealbumin 18.0 L 05/06/21 15:51: S.aureus Protein A PCR POSITIVE H, MRSA (PCR) Negative 05/06/21 17:36: POC Glucose 109 05/06/21 21:23: POC Glucose 185 H 05/07/21 05:20: WBC 6.0, RBC 4.17 L, Hgb 11.2 L, Hct 34.4 L, MCV 82.5, MCH 26.9 L, MCHC 32.6, RDW Std Deviation 42.5, RDW Coeff of Divya 14.0, Plt Count 290, MPV 9.5, Immature Gran % (Auto) 1.000 H, Neut % (Auto) 68.5, Lymph % (Auto) 18.4 L, Upson % (Auto) 8.5, Eos % (Auto) 3.3, Baso % (Auto) 0.3, Absolute Neuts (auto) 4.1, Absolute Lymphs (auto) 1.10, Nucleated RBC % 0 05/07/21 05:20: Sodium 138, Potassium 4.4, Chloride 103, Carbon Dioxide 26.0, Anion Gap 9, BUN 14, Creatinine 1.17, Estim Creat Clear Calc 63.33, Est GFR (MDRD) Af Amer 81, Est GFR (MDRD) Non-Af 67, BUN/Creatinine Ratio 12.0, Glucose 129 H, Calcium 9.5 Micro: Microbiology 05/06/21 12:13 Nasal Secretion SARS-CoV-2 Antigen (Rapid) - Final Radiography Diagnostic Testing: Radiology Impression Foot X-Ray 05/06/21 12:03 IMPRESSION: Suspect cellulitis with ulcer of the first digit with osteomyelitis of the tibial aspect of the base of the first distal phalanx. Electronically Signed: Manfred Broderick MD at 12:43 EDT Tel , Service support , Physical Exam Const alert and oriented x3 General Appearance: cooperative HEENT normocephalic Extremity Extremity Narrative: No calf tenderness Diminished pulses; dp is palpable hair noted to lower ankle level Muscle wasting noted Decreased loaded first metatarsophalangeal joint range of motion is consistent with hallux limitus General Extremity: edema and no tenderness to palpation of joints or extremities; Negative for cyanosis Skin Skin Narrative: Skin discontinuity to plantar medial right hallux probes to deeper structures including muscle and bone. There is hematogenous drainage only. No odor or purulence. There is intense erythema to the toe that no longer extends to the dorsal midfoot. There is no fluctuance, bogginess, or palpable abscess. There is no crepitus with manipulation of the hallux interphalangeal joint noted. Neuro Neuro Narrative: Epicritic sensation light touch and pain with ulcer debridement noted Psych cooperative and affect normal Assessment & Plan Assessment/Plan (1) Osteomyelitis: (2) Failure of outpatient treatment: (3) Ulcer of right foot with necrosis of bone: (4) Type 2 diabetes mellitus with diabetic polyneuropathy: (5) Hallux limitus of right foot: PLAN: I reviewed and discussed his case this morning. He presented with worsening cellulitis and his failed outpatient management including wound care center visits at [facility], hyperbaric oxygen therapy, and oral antibiotic use. He is afebrile with vital with signs stable. He does not have leukocytosis. At time of admission, ESR was 28 and C-reactive protein 75.5. The intensity and location of the cellulitis is decreased compared to yesterday. He is on broad-spectrum IV antibiotics including vancomycin and Zosyn. Deep wound cultures were obtained yesterday at the time of admission following ulcer debridement. These results are pending. Blood cultures are negative so far. X-rays also supports a diagnosis of osteomyelitis with osseous destruction adjacent to the ulcer site. He had an MRI performed in outside facilities and these records will be requested if we are able to locate the facility he had the test completed in [place]. Dressing change this morning: Betadine wet-to-dry Offload: Heel weightbearing with surgical shoe. To use assistive device if needed. Vascular: He had previous lower extremity intervention and medical records will be recommended prior to ordering any updated vascular tests or consultations. It is noted he has small vessel calcification even on his foot x-ray. Medical records have been requested. It is noted he is also on plavix. Host factors: He has uncontrolled diabetes with a self-reported A1c of over 9%. He understands this in combination with his known vascular disease make healing difficult. I recommend nutritional education to optimize healing. Medical management per primary team is greatly appreciated. He was also educated on all treatment options including surgical options such as amputation. We discussed the benefits and risks of all treatment options. He refuses an amputation. I recommend infectious disease consultation and antibiotic course for treatment of osteomyelitis. I answered all the patient's questions. I will follow this case while he is in house. Please do not hesitate to call if you have any questions. Natali Orosco DPM, [facility] [phone]
--- NOTE | 2021-05-07 07:02 | WOUNDNOTE ---
wound photo: right medial great toe
[2021-05-07 07:43] VITALS: BP 156/75; PULSE 72; RESP 16; TEMP 36.8; O2SAT 97
[2021-05-07] MEDS: Insulin Lispro 100 UNIT/ML INSULN.PEN 8 UNIT SC ×3 (07:54→16:29)
[2021-05-07] MEDS: Juven (unflavored) Packet 1 PACKET PO ×2 (07:54→16:29)
[2021-05-07] MEDS: Aspirin 81 MG TAB.CHEW PO (07:54)
[2021-05-07] MEDS: Insulin Lispro 100 UNIT/ML INSULN.PEN SC ×4 (07:55→22:44)
[2021-05-07 07:58] VITALS: O2SAT 95
[2021-05-07 08:06] LABS: Bedside Glucose 154 mg/dL (70-110)
[2021-05-07 08:34] LABS: Hemoglobin A1c 7.5 % (3.8-5.6)
--- NOTE | 2021-05-07 09:17 | PN.HOSP_ITS ---
Subjective Subjective Feels well. Objective Data Objective Data Vital Signs: Vital Signs Temp Pulse Resp BP Pulse Ox 36.8 C 72 16 156/75 H 95 05/07/21 07:43 05/07/21 07:43 05/07/21 07:43 05/07/21 07:43 05/07/21 07:58 Oxygen Delivery Method Room Air Weight: 92.9 kg Body Mass Index (BMI) 31.1 Intake & Output: Intake and Output for Last 24 Hours 05/05/21 05/06/21 05/07/21 23:59 23:59 23:59 Intake Total 621.25 / 621.25 250 / 250 Balance 621.25 / 621.25 250 / 250 Lab / Micro Data Result Diagrams: 05/07/21 05:20 05/07/21 05:20 Labs: Laboratory Results - last 24 hr 05/06/21 12:19: Lactic Acid 1.9 05/06/21 12:20: WBC 7.4, RBC 4.32 L, Hgb 11.7 L, Hct 35.0 L, MCV 81.0, MCH 27.1, MCHC 33.4, RDW Std Deviation 41.7, RDW Coeff of Divya 14.1, Plt Count 270, MPV 9.4, Immature Gran % (Auto) 0.500, Neut % (Auto) 75.1 H, Lymph % (Auto) 15.8 L, Sunflower % (Auto) 5.9, Eos % (Auto) 2.4, Baso % (Auto) 0.3, Absolute Neuts (auto) 5.5, Absolute Lymphs (auto) 1.16, Nucleated RBC % 0, ESR 28 H 05/06/21 12:20: Sodium 133 L, Potassium 4.6, Chloride 100, Carbon Dioxide 26.0, Anion Gap 7, BUN 17, Creatinine 1.31 H, Estim Creat Clear Calc 56.56, Est GFR (MDRD) Af Amer 71, Est GFR (MDRD) Non-Af 59 L, BUN/Creatinine Ratio 13.0, Glucose 216 H, Calcium 9.6, C-React Prot Ext Range 75.50 H 05/06/21 12:20: Phosphorus 2.6, Prealbumin 18.0 L 05/06/21 15:51: S.aureus Protein A PCR POSITIVE H, MRSA (PCR) Negative 05/06/21 17:36: POC Glucose 109 05/06/21 21:23: POC Glucose 185 H 05/07/21 05:20: WBC 6.0, RBC 4.17 L, Hgb 11.2 L, Hct 34.4 L, MCV 82.5, MCH 26.9 L, MCHC 32.6, RDW Std Deviation 42.5, RDW Coeff of Divya 14.0, Plt Count 290, MPV 9.5, Immature Gran % (Auto) 1.000 H, Neut % (Auto) 68.5, Lymph % (Auto) 18.4 L, Sunflower % (Auto) 8.5, Eos % (Auto) 3.3, Baso % (Auto) 0.3, Absolute Neuts (auto) 4.1, Absolute Lymphs (auto) 1.10, Nucleated RBC % 0 05/07/21 05:20: Sodium 138, Potassium 4.4, Chloride 103, Carbon Dioxide 26.0, Anion Gap 9, BUN 14, Creatinine 1.17, Estim Creat Clear Calc 63.33, Est GFR (MDRD) Af Amer 81, Est GFR (MDRD) Non-Af 67, BUN/Creatinine Ratio 12.0, Glucose 129 H, Calcium 9.5 05/07/21 05:20: Hemoglobin A1c 7.5 H 05/07/21 07:41: POC Glucose 154 H Micro: Microbiology 05/06/21 12:13 Nasal Secretion SARS-CoV-2 Antigen (Rapid) - Final Radiography Diagnostic Testing: Radiology Impression Foot X-Ray 05/06/21 12:03 IMPRESSION: Suspect cellulitis with ulcer of the first digit with osteomyelitis of the tibial aspect of the base of the first distal phalanx. Electronically Signed: Manfred Broderick MD at 12:43 EDT Tel , Service support , Physical Exam Const alert Exam Limitations: no limitations HEENT head/scalp atraumatic Head and Scalp: normocephalic Resp normal respiratory effort, no use of accessory muscles and clear to auscultation bilaterally Cardio regular rate, regular rhythm, S1 normal heart sound and S2 normal heart sound GI normal to inspection, nondistended, normoactive bowel sounds, soft to palpation, non-tender and non-distended Extremity normal to inspection Skin Skin Narrative: picture from Lyssa Mccurdy'beronica showed right great toe ulceration that appears superficial with surrounding erythema. Assessment & Plan Assessment/Plan (1) Osteomyelitis: QUALIFIERS: Osteomyelitis type: other acute Osteomyelitis location: foot Laterality: right Qualified Code(s): M86.171 - Other acute osteomyelitis, right ankle and foot PLAN: 1. right great toe osteomyelitis and cellulitis * despite treatement with TMP/SMX and cephalexin. * OM noted on radiograph of the tibial aspect of the base of the 1st distal phalanx. * podiatry following and have requested records from [facility] * pt very concerned about losing his toe. * abx with vanc and pip/tazo 2. DM2 uncontrolled * a1c 7.5 * continue glargine and SSI 3. CAD * s/p stents * clopidogrel held for potential surgery * continue ASA and statin 4. VTE prophylaxis: LMWH Charges/Coding Visit Charges Inpatient E&M: 41683 Subs Hosp L2
--- NOTE | 2021-05-07 10:20 | CASEMGMT ---
REJI PHILLIPS Assessment: Face to Face with pt for initial transition planning/care coordination assessment. REJI PHILLIPS introduced self and role at [facility], pt voices understanding and consents to assessment. Pt is A/O x4 and answers all questions appropriately at this time. Pt lying in bed in no distress. Care providers, pharmacy, and demographics verified/updated. Admitting Dx: Foot ulcer osteomyelitis PCP:[place] Specialists: david Higgins Pharmacy: [facility] Retail Insurance: [place] Prescription Benefit: yes LW/HPOA: Pt denies having a LW/DPOA and denies need for info regarding AD. LNOK: Caryl Vargas, mother Living Arrangements: Pt lives alone in a single story house with two steps to enter. Pt reports being I in ADL's and denies concerns at home. Transportation: Pt drives self and denies concerns with transportation. DME/HHC/SNF: Pt has a BGM. Denies previous HHC or SNF stays. Pt is retired, denies using alcohol, cigarettes, street drugs or illegal drugs. Pt has been following with the [facility] and receiving hyperbaric treatments. Pt completed 30 and states they just signed him up for 30 more. Pt states he does check his blood sugars but not as much as I should and I am not the best patient. Discussed with patient the option of the diabetic clinic, pt denies need for this. He states he had been doing very well. Pt denies need for HHC. He states he knows what he is supposed to do but does not do it. He states he does not do any drugs or alcohol but does enjoy eating/drinking soda. Pt states that he completes his own wound care twice a day. Pt does admit to feeling depressed. He states he needs to go home as to not exacerbate this further. Asked patient if he would like to speak to a social psychologist regarding his feelings. Pt did not state either way. Made him aware that his CM will notify the SW to stop in to speak with him. Notified Justina BELLE of this. Pt states no concerns with going home at time of dc. He plans to follow up at [facility] in [place]. He denies having an poultry helper. Offered info regarding endocrinology physician, pt declined. He states he has strips and lancets for his BMG. Pt states no further concerns/needs. CM to follow. Advised pt to ask CM if any further question/concerns/needs arise or should he change his mind regarding any services discussed, voices understanding. Pt Goal: Home with follow up at [facility] [place] Plan: Home with follow up at [facility] and patient to continue performing own dressing changes.
[2021-05-07] MEDS: Sertraline 100 MG Tablet PO (11:38)
[2021-05-07] MEDS: Enoxaparin 40 MG/0.4 ML Syringe SC (11:38)
[2021-05-07] MEDS: Carvedilol 6.25 MG Tablet PO ×2 (11:38→22:45)
[2021-05-07] MEDS: Lisinopril 20 MG Tablet PO (11:38)
[2021-05-07 11:46] LABS: Bedside Glucose 191 mg/dL (70-110)
--- NOTE | 2021-05-07 13:30 | CASEMGMT ---
Social Work Note SW received consult for depression as pt reported that he is depressed. SW in to speak with pt. SW introduced self and role at [facility]. Pt is alert and orientated, participates in assessment. Pt states that he has had problems with his foot since May 2020 and it is becoming a lot. Pt states he is doing everything that the doctors are telling him to do and his foot is still not getting better. Pt states that his foot will get better for some time and then will go back to not being good again. Pt states it is never ending and it is very depressing. Pt states I go to one doctor and get told one thing and then go to another doctor and get told something else. SW spoke with pt about how that can be frustrating. Pt states he does to the [facility] and was receiving Hyperbaric Chamber treatment. Pt states and then when he came to the ED he didn't like how the ED physician asked him if he wanted him to just gnaw the foot off. Pt states it isn't funny to joke to someone about losing a foot. SW informed pt that it is not funny to joke about that. Pt states one doctor will tell him he will need an amputation and then another one will say he doesn't. Pt states even if they tell him he needs one he will not be getting an amputation. Pt states he recently retired from [employer] as they started to enforce having their employers wear steel toe shoes. Pt states he is not able to wear steel toes shoes and brought in a doctors excuse explaining he can't wear steel toe shoes but states they didn't accept that so I decided to retire. Pt states he needs to leave [facility] soon as he has a house he needs to take care of. Pt states that he told his PCP about his depression and pt states he is taking antidepressants. Pt states he doesn't feel like the antidepressants are working though. Pt states that a long time ago he was in counseling for something else, pt denied currently being in counseling. SW offered to provide pt with counseling resources and pt denied. Pt states that he will try and talk to his mom about how he is feeling but states I have to take care of her and she runs her mouth to everyone about me after I ask her not to tell anyone. SW asked pt if he had any other additional supports. Pt states he has one friend but states he doesn't want to tell his friend. SW asked pt about any history of suicidal thoughts/plans/ideations and pt states I don't want to answer that. SW asked pt about any current suicidal thoughts/plans/ideations. Pt denied any current suicidal thoughts/plans/ideations. SW asked pt about goals for himself and pt states he would like to be healthier and happier. Pt states he does like to drink soda, states he drank soda growing up. SW asked pt what would make him happy and pt states more cars. Pt states he really likes cars and cats. Pt states he likes to go to car shows. Pt states he currently has three cars. SW spent much time with pt provided support and exploring pt's feelings of depression and frustration. At this time, pt is denying any current suicidal thoughts/plans/ideations and denied wanting any counseling resources. SW to remain available should other needs arise. Neyda Sue LIFE MANAGER, LAWN [employer]OWER SHARPENER
[2021-05-07 13:32] VITALS: BP 137/68; PULSE 73; RESP 16; TEMP 36.9; O2SAT 95
--- NOTE | 2021-05-07 15:50 | CON.PCM.ID_ITS ---
Assessment & Plan Assessment/Plan (1) Osteomyelitis: QUALIFIERS: Osteomyelitis type: other acute Osteomyelitis location: foot Laterality: right Qualified Code(s): M86.171 - Other acute osteomyelitis, right ankle and foot PLAN: R 1st toe osteo with DM. Wound pcr with mssa. Wound cx pending. On vanc/zosyn, hopes to leave tomorrow. Covid vaccinated. Will follow, thank you (2) Type 2 diabetes mellitus with diabetic polyneuropathy: HPI Consult Data Date of Consult: 05/07/21 HPI Narrative HPI Narrative: ROSETTA STEWART, is a 61 M with DM, presented with 10 days of worsening R foot pain/redness/swelling/drainage. Has had ulcer for past year. Had HBO therapy, had angioplasty. Ulcer nearly healed, then worsened. Put on bactrim/keflex without improvement over past few days. Admitted here, on vanc/zosyn, feeling bettter. Has had covid vaccine. Denies any neuropathy. Full ROS performed and neg except as noted above. [facility] Medical History Anxiety Chest pain Depression Diabetes mellitus Heart disease HTN (hypertension) Myocardial infarct Toe infection Home Medications albuterol sulfate 1 - 2 puff INHALATION Q4H PRN PRN 09/17/20 [History Last Taken Unknown] aspirin 81 mg PO DAILY@0800 09/17/20 [History Last Taken Unknown] carvedilol 6.25 mg PO BID 09/17/20 [History Last Taken Unknown] clopidogrel 75 mg PO DAILY 09/17/20 [History Last Taken Unknown] fluticasone propionate 2 puff IH DAILY 09/17/20 [History Last Taken Unknown] glimepiride 8 mg PO DAILY 09/17/20 [History Last Taken Unknown] lisinopril 20 mg PO DAILY 09/17/20 [History Last Taken Unknown] metformin 1,000 mg PO BID 09/17/20 [History Last Taken Unknown] rosuvastatin 10 mg PO QHS 09/17/20 [History Last Taken Unknown] sertraline 100 mg PO DAILY 09/17/20 [History Last Taken Unknown] cephalexin 500 mg PO Q6H 05/06/21 [History Last Taken Unknown] sitagliptin [Januvia] 100 mg PO DAILY 05/06/21 [History Last Taken Unknown] tramadol 50 mg PO Q6H 05/06/21 [History Last Taken Unknown] Allergy/AdvReac Type Severity Reaction Status Date / Time No Known Allergies Allergy Verified 05/06/21 11:44 Surgical History (Updated 05/06/21 @ 17:11 by Janay Epperson) History of coronary artery stent placement Hx of cardiac cath Social History Smoking Status: Never smoker Physical Exam Const alert, oriented x3 and no apparent distress General Appearance: cooperative Exam Limitations: no limitations HEENT normocephalic and head/scalp atraumatic Eyes PERRL and EOMs intact bilaterally Neck supple and No nodes Resp normal air movement and clear to auscultation bilaterally Cardio regular rate and regular rhythm GI normal to inspection, nondistended, normoactive bowel sounds Extremity no clubbing, cyanosis or edema Skin Skin Narrative: reviewed photo Lab / Micro Data Result Diagrams: 05/07/21 05:20 05/07/21 05:20 Labs: Laboratory Results - last 24 hr 05/06/21 15:51: S.aureus Protein A PCR POSITIVE H, MRSA (PCR) Negative 05/06/21 17:36: POC Glucose 109 05/06/21 21:23: POC Glucose 185 H 05/07/21 05:20: WBC 6.0, RBC 4.17 L, Hgb 11.2 L, Hct 34.4 L, MCV 82.5, MCH 26.9 L, MCHC 32.6, RDW Std Deviation 42.5, RDW Coeff of Divya 14.0, Plt Count 290, MPV 9.5, Immature Gran % (Auto) 1.000 H, Neut % (Auto) 68.5, Lymph % (Auto) 18.4 L, Hopkins % (Auto) 8.5, Eos % (Auto) 3.3, Baso % (Auto) 0.3, Absolute Neuts (auto) 4.1, Absolute Lymphs (auto) 1.10, Nucleated RBC % 0 05/07/21 05:20: Sodium 138, Potassium 4.4, Chloride 103, Carbon Dioxide 26.0, Anion Gap 9, BUN 14, Creatinine 1.17, Estim Creat Clear Calc 63.33, Est GFR (MDRD) Af Amer 81, Est GFR (MDRD) Non-Af 67, BUN/Creatinine Ratio 12.0, Glucose 129 H, Calcium 9.5 05/07/21 05:20: Hemoglobin A1c 7.5 H 05/07/21 07:41: POC Glucose 154 H 05/07/21 11:36: POC Glucose 191 H Micro: Microbiology 05/06/21 15:51 Wound - Right Foot Gram Stain - Final 05/06/21 15:51 Wound - Right Foot Wound Culture - Preliminary Staphylococcus aureus 05/06/21 12:13 Nasal Secretion SARS-CoV-2 Antigen (Rapid) - Final
[2021-05-07 16:31] LABS: Bedside Glucose 180 mg/dL (70-110)
[2021-05-07] MEDS: Acetaminophen 325 MG Tablet 650 MG PO (18:57)
[2021-05-07] MEDS: oxyCODONE 5 MG Tablet PO (18:57)
[2021-05-07 20:01] VITALS: BP 123/67; PULSE 76; RESP 16; TEMP 36.6; O2SAT 96
[2021-05-07 22:55] LABS: Bedside Glucose 262 mg/dL (70-110)
[2021-05-08] MEDS: Vancomycin IV 1,000 MG/200 ML BAG 200 MG IV ×2 (01:30→12:51)
[2021-05-08 02:00] VITALS: BP 133/71; PULSE 67; RESP 18; TEMP 36.6; O2SAT 94
[2021-05-08] MEDS: 0.9% Saline Lock 10 ML Syringe IV (06:41)
[2021-05-08 07:00] LABS: Absolute Lymphocyte Count 1.43 X10^3/uL (0.83-4.51); Absolute Neutrophil Count 5.6 X10^3/uL (2.0-7.7); Basophil# 0.03 X10^3/uL; Basophil% 0.4 % (0-1); Eosinophil# 0.24 X10^3/uL; Hematocrit 36.5 % (40-54); Hemoglobin 11.9 g/dL (13.0-16.5); Lymphocyte # 1.43 X10^3/ul (0.83-4.51); Lymphocyte % 17.8 % (19-41); Mean Corp Hgb Conc 32.6 g/dL (32-36); Mean Platelet Vol. 9.1 fl (6.2-12.0); Monocyte# 0.62 X10^3/uL; Monocyte% 7.7 % (0-10); NRBC Flagged by Analyzer 0 % (0-5); Neutrophil # 5.63 X10^3/uL (2.7-7.7); Neutrophil % 69.9 % (47-70); Platelet Count 295 K/mm3 (150-450); RBC Distribution Width SD 42.5 fl (35.1-43.9); White Blood Count 8.1 K/mm3 (4.4-11.0)
[2021-05-08 07:14] LABS: Anion Gap 9 (5-15); BUN 18 mg/dL (7-18); BUN/Creat Ratio 15.1 RATIO (10-20); Calcium,Total 9.6 mg/dL (8.5-10.1); Chloride 101 mmol/L (98-107); Creatinine, Serum 1.19 mg/dL (0.70-1.30); EST Glomerular Filtration Rate 66 mL/min (>60); Est Glom Filt Rate - Afr Amer 80 mL/min (>60); Estimated Creatinine Clearance 62.27 ml/min; Glucose 160 mg/dL (74-106); Potassium 4.3 mmol/L (3.5-5.1); Sodium Level 135 mmol/L (136-145)
[2021-05-08 07:29] VITALS: BP 138/66; PULSE 69; RESP 16; TEMP 37; O2SAT 98
[2021-05-08 07:40] LABS: Bedside Glucose 157 mg/dL (70-110)
[2021-05-08] MEDS: Insulin Lispro 100 UNIT/ML INSULN.PEN 8 UNIT SC ×2 (08:02→12:01)
[2021-05-08] MEDS: Aspirin 81 MG TAB.CHEW PO (08:02)
[2021-05-08] MEDS: Insulin Lispro 100 UNIT/ML INSULN.PEN SC ×2 (08:02→12:01)
--- NOTE | 2021-05-08 10:53 | PCM.PN.ID ---
Physical Exam Narrative Feeling better, toe less red, no fever, no n/v/d. Const alert General Appearance: cooperative Resp normal air movement and clear to auscultation bilaterally Cardio regular rate and regular rhythm GI normal to inspection, nondistended, normoactive bowel sounds Skin Skin Narrative: erythema resolving ID ID: Route of nutrition/ use of supplements: [] Nutritional Intake: [] IV Site: [] Hawley Catheter: [] Assessment & Plan Assessment/Plan (1) Osteomyelitis: QUALIFIERS: Osteomyelitis type: other acute Osteomyelitis location: foot Laterality: right Qualified Code(s): M86.171 - Other acute osteomyelitis, right ankle and foot PLAN: R 1st toe osteo with DM. Wound pcr with mssa. Wound cx with staph aureus. On vanc/zosyn. Covid vaccinated. Discussed options with him. If no surgery planned, ok for home with 6 weeks doxy and augmentin. Wrote rx. ID followup in 2 weeks. Will follow (2) Type 2 diabetes mellitus with diabetic polyneuropathy:
[2021-05-08] MEDS: Carvedilol 6.25 MG Tablet PO (10:54)
[2021-05-08] MEDS: Sertraline 100 MG Tablet PO (10:54)
[2021-05-08] MEDS: Lisinopril 20 MG Tablet PO (10:54)
[2021-05-08] MEDS: Enoxaparin 40 MG/0.4 ML Syringe SC (10:54)
[2021-05-08 11:35] LABS: Bedside Glucose 237 mg/dL (70-110)
[2021-05-08 13:36] LABS: Vancomycin, Trough Level 13.1 ug/mL (5.0-15.0)
--- NOTE | 2021-05-08 13:43 | CASEMGMT ---
Social Work Note SW in to speak with pt to check in with pt and pt's depression. Pt states that he is doing good, states he is glad he gets to go home. Pt states he was told the Statement Distribution Clerk still needs to see him. Pt states it's just do back and forth between doctors. Pt states the one doctor told him he could go home on PO antibiotics and the other one says he has an infection in his bone. SW offered support to pt, explained that the doctors need to be on the same page before pt can discharge. SW spoke with pt about his depression. Pt states his PCP is aware he is depressed. Pt states his depression just comes and goes. Pt states sometimes he is feeling low and sometimes he is feeling high/good. SW spoke with pt about when he feels low. Pt states it just depends on his day. SW asked pt if he has any history of suicidal thoughts/plans/ideations. Pt is not forthcoming with answers. SW explained that this worker is just trying to help pt and understanding pt. SW asked pt again if he has any history of thoughts/plans and pt states again he didn't want to get into talking about it. Pt denied any current suicidal thoughts/plans/ideations, states not at this moment. SW asked pt if he would be receptive to taking counseling resources in case he needs them later on and pt denied. Pt states that he has his mother and friend that are supportive. SW asked pt if this worker could have someone call pt in a few days for a welfare check/check in once pt gets home just to check in with pt and see how his depression is and pt gave his approval for him to be called. SW explained that this worker just wants to make sure pt will be safe at home. Pt states he will be safe at home. SW informed pt that it will be [facility] calling pt when he is discharged for a check in. Pt signed Release of Information (TIAN) for [facility]. TIAN placed on pt's chart. SW to call [facility] to schedule a check in for pt once pt is discharged. Neyda Sue MUSEUM GUIDE, DIRECTOR CORPORATE COMPLIANCE
--- NOTE | 2021-05-08 14:26 | PHA.PHARE_ITS ---
Consult Pharmacy has been consulted to manage selected antiobiotic: Vancomycin Type of Consult: Follow-up Suspected Infection: Osteomyelitis Labs: Sodium 135 mmol/L (136-145) L 05/08/21 06:40 Potassium 4.3 mmol/L (3.5-5.1) 05/08/21 06:40 Chloride 101 mmol/L (98-107) 05/08/21 06:40 Carbon Dioxide 25.0 mmol/L (21.0-32.0) 05/08/21 06:40 Anion Gap 9 (5-15) 05/08/21 06:40 BUN 18 mg/dL (7-18) 05/08/21 06:40 Creatinine 1.19 mg/dL (0.70-1.30) 05/08/21 06:40 Est GFR (MDRD) Af Amer 80 mL/min (>60) 05/08/21 06:40 Est GFR (MDRD) Non-Af 66 mL/min (>60) 05/08/21 06:40 BUN/Creatinine Ratio 15.1 RATIO (10-20) 05/08/21 06:40 Glucose 160 mg/dL (74-106) H 05/08/21 06:40 Vancomycin Trough 13.1 ug/mL (5.0-15.0) 05/08/21 12:46 Microbiology: Microbiology 05/06/21 15:51 Wound - Right Foot Gram Stain - Final 05/06/21 15:51 Wound - Right Foot Wound Culture - Final Staphylococcus aureus 05/06/21 12:10 Blood Culture (Wb) - Right Hand Blood Culture - Preliminary No growth in 48 hours. 05/06/21 12:20 Blood Culture (Wb) - Anticubital Right Blood Culture - Pre liminary No growth in 48 hours. 05/06/21 12:13 Nasal Secretion SARS-CoV-2 Antigen (Rapid) - Final Goal Trough: 15-20 mcg/mL Pharmacy Plan for Drug Dosing: VANCOMYCIN LEVEL RECEIVED Current Vancomycin Dose: 1000mg q12h (0130, 1330) Number of Doses Received: 2000mg x1, 1000mg x3 Vancomycin Level: 13.1 Hours Since Last Dose: 11 Renal Function: SrCr 1.19 Renal Function Trend: Currently Stable Lab/Micro: Vancomycin Plan/Comments: 11 hour trough resulted slightly below ordered goal trough of 15-20, however pt not yet at steady state. recommend continuing current dose and checking trough in 4 more doses Pending Level: 05/10/21 at 1300 Pharmacy Service will continue to monitor and adjust dosing as required. Follow-Up Labs: Trough Vancomycin - 05/10/21 at 1300
--- NOTE | 2021-05-08 14:38 | PCM.DC ---
Discharge Instructions Diet Discharge Diet: 1999 Calorie Control Diet Activity Discharge Activity: Return to Normal Activity Weight Bearing Status: - (heel weightbear to keep pressure of of toe ulcer. surgical shoe when up) Keep extremity elevated above heart level: Right Leg Dressing / Incision Call your doctor if your incision/area has: Continuous Slow Oozing, Sudden Increased Bleeding, Increased Pain/ Swelling, Increased Redness, Foul Smelling Discharge and Swelling at the incision site Call your doctor if you observe: Fever of 101 or Higher Follow Up Care Please Follow Up With: wound care When: 1 week Test Results: Test results from this visit will be discussed in further detail at your follow-up appointment, if applicable. Discharge Plan Admission Admit Date/Time: 05/06/21 14:14 Primary Reason for Your Visit: right great toe cellulitis and osteomyelitis. Attending Provider: Peter Pichardo Primary Care Provider: Nitin Malagon Consulting Providers: Natali Orosco ; Sunday Pollock Discharge Orders/Prescriptions Prescriptions: New doxycycline hyclate 100 mg capsule 100 mg PO BID Qty: 80 RF: 0 amoxicillin-pot clavulanate [Augmentin] 875-125 mg tablet 1 tab PO Q12H Qty: 80 RF: 0 Continued fluticasone propionate 50 MCG blister with device 2 puff IH DAILY RF: 0 carvedilol 6.25 MG tablet 6.25 mg PO BID RF: 0 lisinopril 20 MG tablet 20 mg PO DAILY RF: 0 sertraline 100 MG tablet 100 mg PO DAILY RF: 0 clopidogrel 75 MG tablet 75 mg PO DAILY RF: 0 metformin 1,000 MG tablet 1,000 mg PO BID RF: 0 glimepiride 4 MG tablet 8 mg PO DAILY RF: 0 aspirin 81 MG tablet,chewable 81 mg PO DAILY@0800 RF: 0 albuterol sulfate 1 INHALER inhaler 1 - 2 puff INHALATION Q4H PRN PRN (Reason: Wheezing) RF: 0 rosuvastatin 10 MG tablet 10 mg PO QHS RF: 0 tramadol 50 mg tablet 50 mg PO Q6H RF: 0 Januvia 100 mg tablet 100 mg PO DAILY RF: 0 Discontinued cephalexin 500 mg capsule 500 mg PO Q6H RF: 0 Referrals / Follow Up: Ntiin Malagon MD [Primary Care Provider] - Within 2 Weeks Disposition Disposition (needs filled in before D/C Order can be placed): Home, Self Care
--- NOTE | 2021-05-08 14:44 | PCM.PROGNOTE ---
Subjective Subjective This 61-year-old diabetic male was seen bedside for right chronic great toe ulcer with osteomyelitis. He denies fever, chill, nausea, vomiting. He denies foot pain. Objective Data Objective Data Vital Signs: Vital Signs Temp Pulse Resp BP Pulse Ox 98.6 F 69 16 138/66 H 98 05/08/21 07:29 05/08/21 07:29 05/08/21 07:29 05/08/21 07:29 05/08/21 07:29 Oxygen Delivery Method Room Air Weight: 92.9 kg Body Mass Index (BMI) 31.1 Intake & Output: Intake and Output for Last 24 Hours 05/06/21 05/07/21 05/08/21 23:59 23:59 23:59 Intake Total 621.25 / 621.25 550 / 550 900 / 900 Balance 621.25 / 621.25 550 / 550 900 / 900 Lab / Micro Data Result Diagrams: 05/08/21 06:40 05/08/21 06:40 Labs: Laboratory Results - last 24 hr 05/07/21 16:24: POC Glucose 180 H 05/07/21 22:43: POC Glucose 262 H 05/08/21 06:40: WBC 8.1, RBC 4.40 L, Hgb 11.9 L, Hct 36.5 L, MCV 83.0, MCH 27.0, MCHC 32.6, RDW Std Deviation 42.5, RDW Coeff of Divya 14.0, Plt Count 295, MPV 9.1, Immature Gran % (Auto) 1.200 H, Neut % (Auto) 69.9, Lymph % (Auto) 17.8 L, [place] % (Auto) 7.7, Eos % (Auto) 3.0, Baso % (Auto) 0.4, Absolute Neuts (auto) 5.6, Absolute Lymphs (auto) 1.43, Nucleated RBC % 0 05/08/21 06:40: Sodium 135 L, Potassium 4.3, Chloride 101, Carbon Dioxide 25.0, Anion Gap 9, BUN 18, Creatinine 1.19, Estim Creat Clear Calc 62.27, Est GFR (MDRD) Af Amer 80, Est GFR (MDRD) Non-Af 66, BUN/Creatinine Ratio 15.1, Glucose 160 H, Calcium 9.6 05/08/21 07:27: POC Glucose 157 H 05/08/21 10:57: POC Glucose 237 H 05/08/21 12:46: Vancomycin Trough 13.1 Micro: Microbiology 05/06/21 15:51 Wound - Right Foot Gram Stain - Final 05/06/21 15:51 Wound - Right Foot Wound Culture - Final Staphylococcus aureus 05/06/21 12:10 Blood Culture (Wb) - Right Hand Blood Culture - Preliminary No growth in 48 hours. 05/06/21 12:20 Blood Culture (Wb) - Anticubital Right Blood Culture - Preliminary No growth in 48 hours. 05/06/21 12:13 Nasal Secretion SARS-CoV-2 Antigen (Rapid) - Final Physical Exam Const alert and oriented x3 General Appearance: cooperative HEENT normocephalic Extremity Extremity Narrative: No calf tenderness Diminished pulses; dp is palpable hair noted to lower ankle level Muscle wasting noted Decreased loaded first metatarsophalangeal joint range of motion is consistent with hallux limitus General Extremity: edema and no tenderness to palpation of joints or extremities; Negative for cyanosis Skin Skin Narrative: Skin discontinuity to plantar medial right hallux probes to deeper structures including muscle and bone. There is serosangenous drainage only. No odor or purulence. There resolved erythema to the toe and midfoot. There is no fluctuance, bogginess, or palpable abscess. There is no crepitus with manipulation of the hallux interphalangeal joint noted. Neuro Neuro Narrative: Epicritic sensation light touch and pain with ulcer debridement noted Psych cooperative and affect normal Assessment & Plan Assessment/Plan (1) Osteomyelitis: QUALIFIERS: Osteomyelitis type: other acute Osteomyelitis location: foot Laterality: right Qualified Code(s): M86.171 - Other acute osteomyelitis, right ankle and foot (2) Failure of outpatient treatment: (3) Ulcer of right foot with necrosis of bone: (4) Type 2 diabetes mellitus with diabetic polyneuropathy: (5) Hallux limitus of right foot: PLAN: I reviewed and discussed his case this afternoon. He has resolved erythema without purulence to the foot. He is afebrile with vital with signs stable. He does not have leukocytosis. He responded well to IV vancomycin and Zosyn. Wound culture demonstrated MSSA. Blood cultures are negative so far. X-rays also supports a diagnosis of osteomyelitis with osseous destruction adjacent to the ulcer site. He had an MRI performed in outside facility; [facility] in [place]. Dressing change this afternoon: Betadine wet-to-dry Offload: Heel weightbearing with surgical shoe. To use assistive device if needed. Vascular: He had previous lower extremity intervention including angioplasty in [place] ([facility]). Host factors: He has uncontrolled diabetes with a self-reported A1c of over 9%. He understands this in combination with his known vascular disease make healing difficult. I recommend nutritional education to optimize healing. Medical management per primary team is greatly appreciated. He was previously educated on all treatment options including surgical options such as amputation. We discussed the benefits and risks of all treatment options. He refuses an amputation. Infectious disease on consult and input is greatly appreciated. The plan is for him to get discharged on 6 weeks of oral Augmentin and doxycycline. I recommend he follows up with his vascular specialist. I do not recommend a bone biopsy due to his compromised vascular status. I recommend he follows up with his tape transferrer at the [facility] wound care center, [facility]. It is noted he is already scheduled to complete his hyperbaric oxygen therapy sessions at that location. Ok to discharge from a podiatry standpoint. I answered all the patient's questions. Please do not hesitate to call if you have any questions. Natali Orosco DPM, [facility] [phone]
--- NOTE | 2021-05-08 14:46 | DS.PCM_ITS ---
Providers Date of Admission: 05/06/21 Primary Care Physician: Dr. 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 Comment: Reason for Consult:: right toe infection Consult: Podiatry Routine Consulting Provider: Natali Orosco Reason for Consult: right great toe Osteo?, nonhealing ulcer EMERGENT Consult: No Notified: Yes Date Notified: 05/06/21 Time Notified: 14:47 Method of Notification: Verbal Reason For Visit: FOOT ULCER OSTEOMYELITIS Diagnosis Discharge Diagnosis (1) Osteomyelitis: Status: Acute Code(s): M86.9 - Osteomyelitis, unspecified Qualifiers: Osteomyelitis type: other acute Osteomyelitis location: foot Laterality: right Qualified Code(s): M86.171 - Other acute osteomyelitis, right ankle and foot (2) Type 2 diabetes mellitus with diabetic polyneuropathy: Status: Acute Code(s): E11.42 - Type 2 diabetes mellitus with diabetic polyneuropathy Medications at Discharge Home Medications albuterol sulfate 1 - 2 puff INHALATION Q4H PRN PRN 09/17/20 aspirin 81 mg PO DAILY@0800 09/17/20 carvedilol 6.25 mg PO BID 09/17/20 clopidogrel 75 mg PO DAILY 09/17/20 fluticasone propionate 2 puff IH DAILY 09/17/20 glimepiride 8 mg PO DAILY 09/17/20 lisinopril 20 mg PO DAILY 09/17/20 metformin 1,000 mg PO BID 09/17/20 rosuvastatin 10 mg PO QHS 09/17/20 sertraline 100 mg PO DAILY 09/17/20 Januvia 100 mg PO DAILY 05/06/21 tramadol 50 mg PO Q6H 05/06/21 amoxicillin-pot clavulanate [Augmentin] 1 tab PO Q12H #80 tab 05/08/21 doxycycline hyclate 100 mg PO BID #80 cap 05/08/21 Hospital Course Operations None Procedures None Summary of Care Provided Minutes Spent on Discharge: 32 Hospital Course: 59-year-old male with diabetes presents with right great toe ulcer. Patient had been on antibiotics previously but despite that it had gotten worse. He presented here for evaluation. Patient had a x-ray of his foot that showed showed suspected cellulitis with ulcer of the right first digit with osteomyelitis of the tibial aspect of the base of the first distal phalanx. Patient was started on broad-spectrum antibiotics with vancomycin and Pipracil and/tazobactam. Podiatry was consulted she and patient expressed no interest in amputation and wants to be on antibiotics. Patient was seen by infectious disease. Culture showed MSSA. He will be treated for 40 days with doxycycline and amoxicillin. Patient has been very active with wound care and hyperbaric treatment for his foot but he has developed what appears to be osteomyelitis on his radiograph. I discussed with him that this could progress and he may require amputation at some point that unfortunately that he despite antibiotics and his treatment may not be sufficient enough. Patient advised to return if he has any, worsening of his foot as that may indicate worsening. Physical Exam Const alert Neuro Sensorium / Orientation: awake and alert Psych affect normal Weight / BMI Weight Weight: 92.9 kg Body Mass Index (BMI) 31.1 ABG / Lab / Microbiology Data Result Diagrams: 05/08/21 06:40 05/08/21 06:40 Laboratory: Laboratory Results - last 24 hr 05/07/21 16:24: POC Glucose 180 H 05/07/21 22:43: POC Glucose 262 H 05/08/21 06:40: WBC 8.1, RBC 4.40 L, Hgb 11.9 L, Hct 36.5 L, MCV 83.0, MCH 27.0, MCHC 32.6, RDW Std Deviation 42.5, RDW Coeff of Divya 14.0, Plt Count 295, MPV 9.1, Immature Gran % (Auto) 1.200 H, Neut % (Auto) 69.9, Lymph % (Auto) 17.8 L, [place] % (Auto) 7.7, Eos % (Auto) 3.0, Baso % (Auto) 0.4, Absolute Neuts (auto) 5.6, Absolute Lymphs (auto) 1.43, Nucleated RBC % 0 05/08/21 06:40: Sodium 135 L, Potassium 4.3, Chloride 101, Carbon Dioxide 25.0, Anion Gap 9, BUN 18, Creatinine 1.19, Estim Creat Clear Calc 62.27, Est GFR (MDRD) Af Amer 80, Est GFR (MDRD) Non-Af 66, BUN/Creatinine Ratio 15.1, Glucose 160 H, Calcium 9.6 05/08/21 07:27: POC Glucose 157 H 05/08/21 10:57: POC Glucose 237 H 05/08/21 12:46: Vancomycin Trough 13.1 Microbiology: Microbiology 05/06/21 15:51 Wound - Right Foot Gram Stain - Final 05/06/21 15:51 Wound - Right Foot Wound Culture - Final Staphylococcus aureus 05/06/21 12:10 Blood Culture (Wb) - Right Hand Blood Culture - Preliminary No growth in 48 hours. 05/06/21 12:20 Blood Culture (Wb) - Anticubital Right Blood Culture - Preliminary No growth in 48 hours. 05/06/21 12:13 Nasal Secretion SARS-CoV-2 Antigen (Rapid) - Final D/C Instructions Discharge Diet: 1999 Calorie Control Diet Weight Bearing Status: - (heel weightbear to keep pressure of of toe ulcer. surgical shoe when up) Keep extremity elevated above heart level: Right Leg Call your doctor if your incision/area has: Continuous Slow Oozing, Sudden Increased Bleeding, Increased Pain/ Swelling, Increased Redness, Foul Smelling Discharge and Swelling at the incision site Call your doctor if you observe: Fever of 101 or Higher Please Follow Up With: wound care When: 1 week Meaningful Use Info Meaningful Use Diagnoses (Choose all that apply): None applicable Discharge Plan Admission Admit Date/Time: 05/06/21 14:14 Primary Reason for Your Visit: right great toe cellulitis and osteomyelitis. Attending Provider: Peter Pichardo Primary Care Provider: Nitin Malagon Consulting Providers: Natali Orosco ; Sunday Pollock Discharge Orders/Prescriptions Prescriptions: New doxycycline hyclate 100 mg capsule 100 mg PO BID Qty: 80 RF: 0 amoxicillin-pot clavulanate [Augmentin] 875-125 mg tablet 1 tab PO Q12H Qty: 80 RF: 0 Continued fluticasone propionate 50 MCG blister with device 2 puff IH DAILY RF: 0 carvedilol 6.25 MG tablet 6.25 mg PO BID RF: 0 lisinopril 20 MG tablet 20 mg PO DAILY RF: 0 sertraline 100 MG tablet 100 mg PO DAILY RF: 0 clopidogrel 75 MG tablet 75 mg PO DAILY RF: 0 metformin 1,000 MG tablet 1,000 mg PO BID RF: 0 glimepiride 4 MG tablet 8 mg PO DAILY RF: 0 aspirin 81 MG tablet,chewable 81 mg PO DAILY@0800 RF: 0 albuterol sulfate 1 INHALER inhaler 1 - 2 puff INHALATION Q4H PRN PRN (Reason: Wheezing) RF: 0 rosuvastatin 10 MG tablet 10 mg PO QHS RF: 0 tramadol 50 mg tablet 50 mg PO Q6H RF: 0 Januvia 100 mg tablet 100 mg PO DAILY RF: 0 Discontinued cephalexin 500 mg capsule 500 mg PO Q6H RF: 0 Referrals / Follow Up: Nitin Malagon MD [Primary Care Provider] - Within 2 Weeks Disposition Disposition (needs filled in before D/C Order can be placed): Home, Self Care Charges/Coding Visit Charges Inpatient E&M: 31525 Disch Hosp
--- NOTE | 2021-05-08 14:53 | WOUNDNOTE ---
wound photo: right great toe
--- NOTE | 2021-05-08 14:53 | WOUNDNOTE ---
wound photo: right great toe
--- NOTE | 2021-05-08 15:34 | CASEMGMT ---
Addendum entered by Neyda Sue 05/08/21 16:00: SW received call from Nolvia at [facility], she will relay message to Crisis assistance to reach out to pt for outreach follow up phone call. Original Note: Social Work Note SW back in to speak with pt as pt was not very forthcoming with his answers. Pt denied any suicidal thoughts/plans/ideations in the last week, month, or year. Pt states I can't even remember the last time I had any states it has been years. Pt states he has mostly just been pissed off with his foot care. SW again spoke with pt about his frustration with his continued wound care and the back and forth decisions regarding his foot. Pt states all of the different opinions make me confused. Pt again states he just has high's and lows with his depression. SW completed PHQ-9 with pt. Pt scored a 6 which is mild. Pt denied any lethal means in the home, denied guns/weapons in the home. Pt states he has his prescribed medications but they are kept in a drawer. SW spoke with pt about coping skills. Pt states he likes cars and he likes to travel. Pt states he used to talk to a counselor but states he wasn't impressed with the counselor. Pt denied additional needs or concerns at this time. BARBRA placed a call to [facility] and left message for Nolvia to call this worker back to schedule outreach follow up phone call for pt. Neyda Sue [employer]ANGER [employer]SEMBLER, [employer]
--- NOTE | 2021-05-09 16:25 | CASEMGMT ---
REJI PHILLIPS Discharge Follow Up Phone Call: LORENZA: Evie Strata:3 Call Date: 05/09/21 Discharge Date: 05/08/21 Time of Call:1620 Duration:3 min Admitting Dx:foot ulcer osteomyelitis REJI PHILLIPS completed follow up phone call after recent hospitalization. Pt was driving. States he had an appt at the wound center today. States he was questioned why he was not sent home on IV atb. Read the dc summary and made him aware that ID felt pt could go home on po atb. Pt denies questions or concerns regarding his dc instructions or medications. Pt sounded flat during phone call but call also kept going in and out. Pt states I am doing ok.
== END 2021-05-08 16:35 | disposition home or self-care (01) | DRG 623 ==
LOC: ED 14:18 → MS3 14:45
PROVIDERS: Podiatrist; Admitting Provider Internal Medicine; Emergency Provider Emergency Medicine; PCP Family Medicine
DX: E11.621 Type 2 diabetes mellitus with foot ulcer (principal); L97.514 Non-pressure chronic ulcer of other part of right foot with necrosis of bone; M86.171 Other acute osteomyelitis, right ankle and foot; E11.42 Type 2 diabetes mellitus with diabetic polyneuropathy; E11.65 Type 2 diabetes mellitus with hyperglycemia; E11.69 Type 2 diabetes mellitus with other specified complication; N18.31 Chronic kidney disease, stage 3a; L03.031 Cellulitis of right toe; B95.61 Methicillin susceptible Staphylococcus aureus infection as the cause of diseases classified elsewhere; M20.5X1 Other deformities of toe(s) (acquired), right foot; I25.10 Atherosclerotic heart disease of native coronary artery without angina pectoris; I12.9 Hypertensive chronic kidney disease with stage 1 through stage 4 chronic kidney disease, or unspecified chronic kidney disease; J45.909 Unspecified asthma, uncomplicated; F41.9 Anxiety disorder, unspecified; Z66 Do not resuscitate; Z95.5 Presence of coronary angioplasty implant and graft; Z79.84 Long term (current) use of oral hypoglycemic drugs; Z79.82 Long term (current) use of aspirin; Z79.02 Long term (current) use of antithrombotics/antiplatelets; Z79.899 Other long term (current) drug therapy
CPT/HCPCS: 11042; 36415; 73630; 80048; 80202; 82962; 83036; 83605; 84100; 84134; 85025; 85652; 86140; 87040; 87070; 87075; 87077; 87186; 87205; 87426; 87640; 93005; 94640; 94762; 96365; 96366; 96367; 96372; 97802; 99218; 99251; 99285; J7030; J7040; J7050; A4216; G0378; G0463

== ENCOUNTER 2021-06-06 13:15 | Outpatient (RCR) | payer BC, SELFPAY ==
[2021-05-23 13:14] VITALS: BP 162/76; PULSE 82; RESP 18; TEMP 36.6; BMI 29.6
--- NOTE | 2021-05-23 14:16 | PCM.WC.PN ---
History of Present Illness Date of Service: 05/23/21 Chief Complaint: right great toe ulcer History of Wound: This 61-year-old diabetic male was seen bedside for right chronic great toe ulcer with osteomyelitis. He denies fever, chill, nausea, vomiting. He denies foot pain. I recently saw him in the hospital setting for acute cellulitis. It is noted he has already been through a full session of hyperbaric oxygen therapy at [facility] wound healing center in the [place]. He will continue to proceed with hyperbaric oxygen therapy sessions at that location. He has requested to change his other wound clinical care to [place] because he would like to get some additional newer recommendations and it is closer to his home. He refuses to participate in offloading and relates this is just not him in regards to using an assistive device. He relates he has a lot of yard work to do. Has been trying to improve his sugar levels by avoiding eating. He relates he lost 7 pounds avoiding meals. He is taking antibiotics as advised and these were recommended by Dr. Pollock, infectious disease specialist. Progress of Wound: stable Objective Data Objective Data Vital Signs: Vital Signs Temp Pulse Resp BP 97.8 F 82 18 162/76 H 05/23/21 13:14 05/23/21 13:14 05/23/21 13:14 05/23/21 13:14 Weight: 88.451 kg Body Mass Index (BMI) 29.6 Physical Exam Const alert and oriented x3 General Appearance: cooperative HEENT normocephalic Extremity Extremity Narrative: No calf tenderness Diminished pulses; dp is palpable hair noted to lower ankle level Muscle wasting noted Decreased loaded first metatarsophalangeal joint range of motion is consistent with hallux limitus General Extremity: edema and no tenderness to palpation of joints or extremities; Negative for cyanosis Skin Skin Narrative: Skin discontinuity to plantar medial right hallux probes to deeper structures including muscle and bone. There is serosangenous drainage only. No odor or purulence. There resolved erythema to the toe and midfoot. There is no fluctuance, bogginess, or palpable abscess. There is no crepitus with manipulation of the hallux interphalangeal joint noted. Neuro Neuro Narrative: Epicritic sensation light touch and pain with ulcer debridement noted Psych cooperative and affect normal Debridement Note Debridement Note Wound debrided: right hallux Wound Grade/Stage: 3 Type of Debridement: Excisional debridement Anesthesia Used: 4% Lidocaine Solution Depth: in the subcutaneous layer Percentage of wound debrided: 100 Instrument Used: #15 blade Tissue Removed: fibrous, devitalized subcutaneous, biofilm, slough Severity: Fat Layer Exposed Amount of bleeding with debridement: Mild Bleeding Controlled with: Pressure Patient tolerated procedure: Patient tolerated procedure well Post-Debridement Measurements and Additional Note: Post-Debridement Measurements/Treatment WC - Nurse 1 - General Ulcer Assessment Start: 05/23/21 13:13 Freq: Status: Active Protocol: REHAN Activity Type Activity Date Activity User E-Sign Co-Sign Detail Recorded Client Recorded Date Recorded By Document 05/23/21 13:14 RB [id number] 05/23/21 13:31 RB 05/23/21 13:14 - Today's Visit Information Type of service Initial Visit Arrival Mode Ambulatory Transfer Assistance None Patient Identification Verified (Name & Yes ) Patient Requires Transmission-Based No Precautions Finger Stick Blood Sugar(mg/dl) (if 130 this am indicated): Blood Sugar Stated by Patient Height and Weight Height 5 ft 8 in Weight 88.451 kg Weight in Pounds 195.0 lbs Body Mass Index (BMI) 29.6 BMI Classification Overweight BSA - Felix 2.02 Vital Signs Temperature (97.8 F-99.1 F) 97.8 F Temperature Source Temporal Pulse Rate (60-100) 82 Pulse Location Monitor Respiratory Rate (12-18) 18 Respiratory rate source Observation Blood Pressure (90/60-120/80) 162/76 H Blood Pressure Mean (mm Hg) 104 Source Monitor Position Semi-Fowlers Blood Pressure Location Left Arm Pain Scale: 0-10 Numeric Is Patient Pain Free? Yes Lower Extremity Assessment/ Foot Assessment/ Toe Nail Assessment Right -Popliteal Doppler Multiphasic -Posterior Tibial Palpable Yes -Dorsalis Pedis Palpable No -Extremity Color Normal -Hair Growth on Legs Yes -Hair Growth on Toes No -Temperature of Extremity Warm -Dependent Rubor No -Blanched when Elevated No -Lipodermatosclerosis No -Other Deformity No -Prior Foot Ulcer No -Charcot Joint No -Prior Amputation No -Thick No -Discolored No -Deformed No -Improper Length & Hygeine Yes Left -Posterior Tibial Palpable Yes -Posterior Tibial Doppler Multiphasic -Dorsalis Pedis Palpable Yes -Dorsalis Pedis Doppler Multiphasic -Extremity Color Normal -Hair Growth on Legs Yes -Hair Growth on Toes No -Temperature of Extremity Warm -Capillary Refill Greater than 3 Seconds -Dependent Rubor No -Blanched when Elevated No -Lipodermatosclerosis No -Other Deformity No -Prior Foot Ulcer No -Charcot Joint No -Prior Amputation No -Thick No -Discolored No -Deformed No -Improper Length & Hygeine Yes Neuropathy Assessment Feet - Top Side and Bottom <Entered> (a) Communication Assessment Preferred language Frisian Tool Hardener Required No Able to Read Yes Able to Write Yes Communication Tools None Caregiver Communication Skills No Impairment Impairment Right Hearing Abillity Normal Left Hearing Abillity Normal Visual Assistive Devices Glasses Teaching Assessment Preferences Verbal,Written, Demonstration Barriers to Learning None Readiness To Learn Good Willingness to Engage in Self Management Med Activies Readiness to Engage in Self Management Med Activities Anxiety Level Calm Cooperation Cooperative Perception Coherent Interest in Health Problem Asks Questions Education Importance Acknowledges Need Does Patient Smoke tobacco or other No substances Smoking Status Never smoker Functional Assessment Recent Decline in Ability to Perform Denies Any Declines Assistive Device With Patient No Culture/Caodaism/Electrical Engineering Technician Cultural/Caodaism Needs that may affect No Treatment Plan Would you allow our hospital compliance intern to No meet you for the purpose of spiritual/ emotional support? Electrical Engineering Technician to contact place of evangelical No Teaching: Wound Center *Welcome to the Wound Center -Person Taught Family -Teaching Method Discussion -Response to teaching Verbalize understanding (a) 1 - + throughout WC - Nurse 1 - General Ulcer Measurement Start: 05/23/21 13:13 Freq: Status: Active Protocol: Activity Type Activity Date Activity User E-Sign Co-Sign Detail Recorded Client Recorded Date Recorded By Document 05/23/21 13:14 RB [id number] 05/23/21 13:31 RB 05/23/21 13:14 Wound Center Nurse 1 2. R great toe Lateral -Combined with other wound No -Current Size (cm) - Length 0.6 -Current Size (cm) - Width 0.4 -Current Size (cm) - Depth 0.4 -Total Square Cm 0.24 -Photo Taken Yes -Tunneling No -Undermining/Tunneling Yes -Undermining/Tunneling Starts (O'clock 12 ) -Undermining/Tunneling Ends (O'clock) 12 -Maximum Distance (cm) 0.2 -Circular Undermining Yes -Exudate Amt Medium -Exudate Type Serosanguineous -Wound Margin Flat & Intact -Granulation Amt Medium (34-66%) -Granulation Quality [place] -Slough/Fibrin Yes -Necrosis Amt Small (1-33%) -Necrotic Tissue Type Adherent Slough -Structure Exposed N/A -Texture (Ashlyn-wound Skin Appearance) Assessed -Moisture (Ashlyn-wound Skin Appearance) Assessed -Color (Ashlyn-wound Skin Appearance) Erythema -Temperature (Ashlyn-wound Skin No Abnormality Appearance) (Pt Warm) -Tenderness on Palpation (Ashlyn-wound No Skin Appearance) -Ulcer Cleansing Wound Cleanser -Foul Odor after Cleansing No -Anesthetic Used 4% Lidocaine Solution 1. R great toe Dorsal -Combined with other wound No -Current Size (cm) - Length 0.8 -Current Size (cm) - Width 0.8 -Current Size (cm) - Depth 0.1 -Total Square Cm 0.64 -Photo Taken Yes -Tunneling No -Undermining/Tunneling No -Circular Undermining No -Exudate Amt Small -Exudate Type Serosanguineous -Wound Margin Distinct, Outline Attached -Granulation Amt Medium (34-66%) -Granulation Quality [place] -Slough/Fibrin Yes -Necrosis Amt Small (1-33%) -Necrotic Tissue Type Adherent Slough -Structure Exposed N/A -Texture (Ashlyn-wound Skin Appearance) Assessed -Moisture (Ahslyn-wound Skin Appearance) Assessed -Color (Aslhyn-wound Skin Appearance) Assessed -Temperature (Ashlyn-wound Skin No Abnormality Appearance) (Pt Warm) -Tenderness on Palpation (Ashlyn-wound No Skin Appearance) -Ulcer Cleansing Wound Cleanser -Anesthetic Used 4% Lidocaine Solution Lower Limb Edema Present Yes Right Calf (cm) 34.5 Right Ankle (cm) 19.8 Left Ankle (cm) 34 Left Foot (cm) 19 - Nurse 2 - General Ulcer CM Notes Start: 05/23/21 13:13 Freq: Status: Active Protocol: Activity Type Activity Date Activity User E-Sign Co-Sign Detail Recorded Client Recorded Date Recorded By Document 05/23/21 13:46 NANETTE [id number] 05/23/21 13:52 NANETTE 05/23/21 13:46 Wound Center Nurse 2 2. R great toe Lateral -Time 13:46 -Correct Patient Yes -Correct Side, Site, Position Yes -Correct Procedure Yes -Procedure Performed Yes -Type of Procedure Debridement -Clinical Debridement Subcutaneous -Tissue Removed Subcutaneous -Post Debridement (cm) - Length 1 -Post Debridement (cm) - Width 0.5 -Post Debridement (cm) - Depth 0.5 -Total Square (Post) (cm) 0.5 -Area of Debridement (cm) - Length 1 -Area of Debridement (cm) - Width 0.5 -Total Square (Area) (cm) 0.5 -Tunneling No -Undermining/Tunneling No -Circular Undermining No -Wound/Ulcer Outcome Not Healed -Ulcer Cleansing Rinsed/ Irrigated with Saline -Foul Odor after Cleansing No -Bioengineered Tissue No -Bleeding Controlled with Pressure -Offloading Yes -Type of Offloading Surgical Shoe -Treatment Response Procedure Tolerated Well -Debridement - Subq, 1st 20sq cm No 1. R great toe Dorsal -Time 13:47 -Correct Patient Yes -Correct Side, Site, Position Yes -Correct Procedure Yes -Procedure Performed Yes -Type of Procedure Debridement -Clinical Debridement Subcutaneous -Tissue Removed Subcutaneous -Post Debridement (cm) - Length 1.5 -Post Debridement (cm) - Width 1.5 -Post Debridement (cm) - Depth 0.1 -Total Square (Post) (cm) 2.25 -Area of Debridement (cm) - Length 1.5 -Area of Debridement (cm) - Width 1.5 -Total Square (Area) (cm) 2.25 -Tunneling No -Undermining/Tunneling No -Circular Undermining No -Wound/Ulcer Outcome Not Healed -Ulcer Cleansing Rinsed/ Irrigated with Saline -Foul Odor after Cleansing No -Bioengineered Tissue No -Bleeding Controlled with Pressure -Offloading Yes -Type of Offloading Surgical Shoe -Treatment Response Procedure Tolerated Well -Debridement - Subq, 1st 20sq cm Yes Pain Scale: 0-10 Numeric Is Patient Pain Free? Yes WC - Nurse 3 - General Ulcer D/C NN Start: 05/23/21 13:13 Freq: Status: Active Protocol: Activity Type Activity Date Activity User E-Sign Co-Sign Detail Recorded Client Recorded Date Recorded By Document 05/23/21 14:03 RB [id number] 05/23/21 14:04 RB 05/23/21 14:03 Wound Care Nurse 3 2. R great toe Lateral -Ulcer Cleansing Rinsed/ Irrigated with Saline -Primary Dressing Applied Aquacel AG 4x4 -Primary Dressing Covered/Secured with Dry Gauze,Dry Gauze & Roll Gauze,Secured with Tape -Aquacel AG 4x4 1 1. R great toe Dorsal -Ulcer Cleansing Rinsed/ Irrigated with Saline -Other Dressing aquacel ag -Primary Dressing Covered/Secured with Dry Gauze,Dry Gauze & Roll Gauze,Secured with Tape Treatment Response Procedure Tolerated Well Pain Scale: 0-10 Numeric Is Patient Pain Free? Yes WC - Visit Discharge Discharge Condition Stable Ambulatory Status Ambulatory Transportation Private Auto Medication Reconcilliation completed & No provided to patient/care provider Clinical Summary of Care Provided Yes Notes: surgical shoe right foot Assessment/Plan Assessment/Plan (1) Ulcer of right foot with necrosis of bone: CODE(S): L97.514 - Non-pressure chronic ulcer of other part of right foot with necrosis of bone (2) Type 2 diabetes mellitus with diabetic polyneuropathy: CODE(S): E11.42 - Type 2 diabetes mellitus with diabetic polyneuropathy (3) Hallux limitus of right foot: CODE(S): M20.5X1 - Other deformities of toe(s) (acquired), right foot (4) Osteomyelitis: CODE(S): M86.9 - Osteomyelitis, unspecified QUALIFIERS: Osteomyelitis type: other acute Osteomyelitis location: foot Laterality: right Qualified Code(s): M86.171 - Other acute osteomyelitis, right ankle and foot (5) Other specified peripheral vascular diseases: CODE(S): I73.89 - Other specified peripheral vascular diseases PLAN: I reviewed and discussed his case this afternoon. He was reassured there is no erythema or purulence to the foot however has continued in exposed manner which is consistent with osteomyelitis. Debridement was performed as noted in the clinical panel. He is afebrile with vital with signs stable. Dressing change this afternoon: Aquacel Ag Wash: Soap and water Offload: Heel weightbearing with surgical shoe. To use assistive device. There is walking into clinic today in a heel-to-toe manner seen very aggressive on the ulcer site. Therefore I recommend fully offloading the entire foot transitioning to nonweightbearing status with a walker or knee roller. He refuses. I added a Plastizote liner and a foam offloading pad to take further pressure off of this ulcer site. Vascular: He had previous lower extremity intervention including angioplasty in [place] ([facility]). Host factors: He has uncontrolled diabetes with a self-reported A1c of over 9%. He understands this in combination with his known vascular disease make healing difficult. He is at risk for amputation he is made this previously clear that he will not proceed forward with this. I recommend nutritional education to optimize healing. I advised him to avoid skipping meals. Advised him to eat a whole food balanced diet that not only focuses on adequate (not excessive) protein intake so nutrient dense food intake. Infection: He is treated for osteomyelitis and will continue with hyperbaric oxygen therapy. He is also completing a 6 weeks of oral Augmentin. The doxycycline was discontinued due to intolerance. To return to clinic in 1 week. I answered all his questions. Note: [employer] speech recognition repair armature winder software was used to create portions of this document. Sound-alike and misspelled words, as well as other repair armature winder errors may be contained in the documentation. 21. Minutes was spent on this encounter. This included face to face and non face to face care including preparing for the visit, reviewing the history, performing the exam, counseling and providing education to the patient, family, or caregiver, ordering medications/test/ procedures if indicated as documented, communicating with other healthcare providers, documenting information in the medical record, interpreting / sharing this information when indicated as documented, and care coordination.
[2021-05-30 13:29] VITALS: BP 140/94; RESP 16; TEMP 36.4; BMI 29.6
--- NOTE | 2021-05-30 14:12 | PCM.PN.ID ---
Physical Exam Narrative Feeling ok. Nausea and upset stomach better after stopping augmentin. Foot stable, now doing HBO. No fever. Const alert and no apparent distress General Appearance: cooperative Resp normal air movement and clear to auscultation bilaterally Cardio regular rate and regular rhythm GI normal to inspection, nondistended, normoactive bowel sounds Skin Skin Narrative: R 1st toe ulcer with exposed bone, improved redness ID ID: Route of nutrition/ use of supplements: [] Nutritional Intake: [] IV Site: [] Hawley Catheter: [] Assessment & Plan Assessment/Plan (1) Osteomyelitis: QUALIFIERS: Osteomyelitis type: other acute Osteomyelitis location: foot Laterality: right Qualified Code(s): M86.171 - Other acute osteomyelitis, right ankle and foot PLAN: R 1st toe osteo with DM and PVD. Wound mssa. Covid vaccinated. Stopped augmentin, continue doxy for full 6 week course. ID followup as needed, d/w Dr. Orosco (2) Type 2 diabetes mellitus with diabetic polyneuropathy: (3) Other specified peripheral vascular diseases:
--- NOTE | 2021-05-30 16:47 | PCM.WC.PN ---
History of Present Illness Date of Service: 05/30/21 Chief Complaint: right great toe ulcer History of Wound: This 61-year-old diabetic male was seen bedside for right chronic great toe ulcer with osteomyelitis. He denies fever, chill, nausea, vomiting. He denies foot pain. I recently saw him in the hospital setting for acute cellulitis. It is noted he has already been through a full session of hyperbaric oxygen therapy at [facility] wound healing center in the [place]. He will continue to proceed with hyperbaric oxygen therapy sessions local if possible. He is taking antibiotics as advised and these were recommended by Dr. Pollock, infectious disease specialist. His nausea has resolved after he stopped taking Augmentin. He wears a surgical shoe. Progress of Wound: stable Objective Data Objective Data Vital Signs: Vital Signs Temp Pulse Resp BP 97.5 F L 82 16 140/94 H 05/30/21 13:29 05/23/21 13:14 05/30/21 13:29 05/30/21 13:29 Weight: 88.451 kg Body Mass Index (BMI) 29.6 Physical Exam Extremity Extremity Narrative: No calf tenderness Diminished pulses; dp is palpable hair noted to lower ankle level Muscle wasting noted Decreased loaded first metatarsophalangeal joint range of motion is consistent with hallux limitus Skin Skin Narrative: Skin discontinuity to plantar medial right hallux probes to deeper structures including muscle and bone. There is also skin discontinuity to dorsal right hallux adjacent to the proximal lateral nail border in which this nail is elongated. There is serosangenous drainage only. No odor or purulence. There resolved erythema to the toe and midfoot. There is no fluctuance, bogginess, or palpable abscess. There is no crepitus with manipulation of the hallux interphalangeal joint noted. Neuro Neuro Narrative: Epicritic sensation light touch and pain with ulcer debridement noted Debridement Note Debridement Note Wound debrided: right hallux medial and dorsal Wound Grade/Stage: 3 Type of Debridement: Excisional debridement Anesthesia Used: 4% Lidocaine Solution Depth: in the subcutaneous layer Percentage of wound debrided: 100 Instrument Used: #15 blade Tissue Removed: fibrous, devitalized subcutaneous, biofilm, slough Severity: Fat Layer Exposed Amount of bleeding with debridement: Mild Bleeding Controlled with: Pressure Patient tolerated procedure: Patient tolerated procedure well Post-Debridement Measurements and Additional Note: Post-Debridement Measurements/Treatment WC - Nurse 1 - General Ulcer Assessment Start: 05/23/21 13:13 Freq: Status: Active Protocol: REHAN Activity Type Activity Date Activity User E-Sign Co-Sign Detail Recorded Client Recorded Date Recorded By Document 05/23/21 13:14 RB [id number] 05/23/21 13:31 RB Document 05/30/21 13:29 ML [id number] 05/30/21 13:37 ML 05/23/21 05/30/21 13:14 13:29 WC - Today's Visit Information Type of service Initial Visit Follow-up Visit (Physician/GAS ENGINE OPERATOR ) Arrival Mode Ambulatory Ambulatory Transfer Assistance None None Patient Identification Verified (Name & Yes Yes ) Patient Requires Transmission-Based No No Precautions Safety Precautions NA Finger Stick Blood Sugar(mg/dl) (if 130 this am indicated): Blood Sugar Stated by Patient Height and Weight Height 5 ft 8 in Weight 88.451 kg Weight in Pounds 195.0 lbs Body Mass Index (BMI) 29.6 29.6 BMI Classification Overweight Overweight BSA - Felix 2.02 Vital Signs Temperature (97.8 F-99.1 F) 97.8 F 97.5 F L Temperature Source Temporal Temporal Pulse Rate (60-100) 82 Pulse Location Monitor Respiratory Rate (12-18) 18 16 Respiratory rate source Observation Blood Pressure (90/60-120/80) 162/76 H 140/94 H Blood Pressure Mean (mm Hg) 104 109 Source Monitor Position Semi-Fowlers Blood Pressure Location Left Arm Pain Scale: 0-10 Numeric Is Patient Pain Free? Yes Lower Extremity Assessment/ Foot Assessment/ Toe Nail Assessment Right -Popliteal Doppler Multiphasic -Posterior Tibial Palpable Yes -Dorsalis Pedis Palpable No -Extremity Color Normal -Hair Growth on Legs Yes -Hair Growth on Toes No -Temperature of Extremity Warm -Dependent Rubor No -Blanched when Elevated No -Lipodermatosclerosis No -Other Deformity No -Prior Foot Ulcer No -Charcot Joint No -Prior Amputation No -Thick No -Discolored No -Deformed No -Improper Length & Hygeine Yes Left -Posterior Tibial Palpable Yes -Posterior Tibial Doppler Multiphasic -Dorsalis Pedis Palpable Yes -Dorsalis Pedis Doppler Multiphasic -Extremity Color Normal -Hair Growth on Legs Yes -Hair Growth on Toes No -Temperature of Extremity Warm -Capillary Refill Greater than 3 Seconds -Dependent Rubor No -Blanched when Elevated No -Lipodermatosclerosis No -Other Deformity No -Prior Foot Ulcer No -Charcot Joint No -Prior Amputation No -Thick No -Discolored No -Deformed No -Improper Length & Hygeine Yes Neuropathy Assessment Feet - Top Side and Bottom <Entered> (a) Communication Assessment Preferred language Icelandic Instrument Assembler Required No Able to Read Yes Able to Write Yes Communication Tools None Caregiver Communication Skills No Impairment Impairment Right Hearing Abillity Normal Left Hearing Abillity Normal Visual Assistive Devices Glasses Teaching Assessment Preferences Verbal,Written, Demonstration Barriers to Learning None Readiness To Learn Good Willingness to Engage in Self Management Med Activies Readiness to Engage in Self Management Med Activities Anxiety Level Calm Cooperation Cooperative Perception Coherent Interest in Health Problem Asks Questions Education Importance Acknowledges Need Does Patient Smoke tobacco or other No substances Smoking Status Never smoker Functional Assessment Recent Decline in Ability to Perform Denies Any Declines Assistive Device With Patient No Culture/Religion/Chief Deputy Clerk/Bailiff Cultural/Religion Needs that may affect No Treatment Plan Would you allow our hospital yarding and folding machine operator to No meet you for the purpose of spiritual/ emotional support? Chief Deputy Clerk/Bailiff to contact place of confucianist No Teaching: Wound Center *Welcome to the Wound Center -Person Taught Family -Teaching Method Discussion -Response to teaching Verbalize understanding (a) 1 - + throughout WC - Nurse 1 - General Ulcer Measurement Start: 05/23/21 13:13 Freq: Status: Active Protocol: Activity Type Activity Date Activity User E-Sign Co-Sign Detail Recorded Client Recorded Date Recorded By Document 05/23/21 13:14 RB [id number] 05/23/21 13:31 RB Document 05/30/21 13:29 ML [id number] 05/30/21 13:37 ML 05/23/21 05/30/21 13:14 13:29 Wound Center Nurse 1 2. R great toe Lateral -Combined with other wound No -Current Size (cm) - Length 0.6 0.6 -Current Size (cm) - Width 0.4 0.4 -Current Size (cm) - Depth 0.4 0.4 -Total Square Cm 0.24 0.24 -Photo Taken Yes -Tunneling No -Undermining/Tunneling Yes -Undermining/Tunneling Starts (O'clock 12 ) -Undermining/Tunneling Ends (O'clock) 12 -Maximum Distance (cm) 0.2 -Circular Undermining Yes -Exudate Amt Medium Medium -Exudate Type Serosanguineous Serosanguineous -Wound Margin Flat & Intact Distinct, Outline Attached -Granulation Amt Medium (34-66%) Large (67-100%) -Granulation Quality [place] -Slough/Fibrin Yes -Necrosis Amt Small (1-33%) Medium (34-66%) -Necrotic Tissue Type Adherent Slough -Structure Exposed N/A -Texture (Ashlyn-wound Skin Appearance) Assessed Assessed -Moisture (Ashlyn-wound Skin Appearance) Assessed Assessed -Color (Ashlyn-wound Skin Appearance) Erythema Assessed -Temperature (Ashlyn-wound Skin No Abnormality Appearance) (Pt Warm) -Tenderness on Palpation (Ashlyn-wound No Skin Appearance) -Ulcer Cleansing Wound Cleanser Rinsed/ Irrigated with Saline -Foul Odor after Cleansing No -Anesthetic Used 4% Lidocaine 5% Lidocaine Solution Gel 1. R great toe Dorsal -Combined with other wound No -Current Size (cm) - Length 0.8 0.1 -Current Size (cm) - Width 0.8 0.1 -Current Size (cm) - Depth 0.1 0.1 -Total Square Cm 0.64 0.01 -Photo Taken Yes -Tunneling No -Undermining/Tunneling No -Circular Undermining No -Exudate Amt Small Medium -Exudate Type Serosanguineous Serosanguineous -Wound Margin Distinct, Distinct, Outline Outline Attached Attached -Granulation Amt Medium (34-66%) Large (67-100%) -Granulation Quality [place] -Slough/Fibrin Yes Yes -Necrosis Amt Small (1-33%) Large (67-100%) -Necrotic Tissue Type Adherent Slough Adherent Slough -Structure Exposed N/A -Texture (Ashlyn-wound Skin Appearance) Assessed Assessed -Moisture (Ashlyn-wound Skin Appearance) Assessed Assessed -Color (Ashlyn-wound Skin Appearance) Assessed Assessed -Temperature (Ashlyn-wound Skin No Abnormality No Abnormality Appearance) (Pt Warm) (Pt Warm) -Tenderness on Palpation (Ashlyn-wound No No Skin Appearance) -Ulcer Cleansing Wound Cleanser Rinsed/ Irrigated with Saline -Foul Odor after Cleansing No -Anesthetic Used 4% Lidocaine 5% Lidocaine Solution Gel Lower Limb Edema Present Yes Right Calf (cm) 34.5 Right Ankle (cm) 19.8 Left Ankle (cm) 34 Left Foot (cm) 19 - Nurse 2 - General Ulcer CM Notes Start: 05/23/21 13:13 Freq: Status: Active Protocol: Activity Type Activity Date Activity User E-Sign Co-Sign Detail Recorded Client Recorded Date Recorded By Document 05/23/21 13:46 [id number] 05/23/21 13:52 Document 05/30/21 14:07 [id number] 05/30/21 14:13 05/23/21 05/30/21 13:46 14:07 Wound Center Nurse 2 2. R great toe Lateral -Time 13:46 14:08 -Correct Patient Yes Yes -Correct Side, Site, Position Yes Yes -Correct Procedure Yes Yes -Procedure Performed Yes Yes -Type of Procedure Debridement Debridement -Clinical Debridement Subcutaneous Subcutaneous -Tissue Removed Subcutaneous Subcutaneous -Post Debridement (cm) - Length 1 1 -Post Debridement (cm) - Width 0.5 0.5 -Post Debridement (cm) - Depth 0.5 0.4 -Total Square (Post) (cm) 0.5 0.5 -Area of Debridement (cm) - Length 1 1 -Area of Debridement (cm) - Width 0.5 0.5 -Total Square (Area) (cm) 0.5 0.5 -Tunneling No No -Undermining/Tunneling No No -Circular Undermining No No -Wound/Ulcer Outcome Not Healed Not Healed -Ulcer Cleansing Rinsed/ Rinsed/ Irrigated with Irrigated with Saline Saline -Foul Odor after Cleansing No No -Bioengineered Tissue No No -Bleeding Controlled with Pressure Pressure -Offloading Yes Yes -Type of Offloading Surgical Shoe Surgical Shoe -Treatment Response Procedure Procedure Tolerated Well Tolerated Well -Debridement - Subq, 1st 20sq cm No No 1. R great toe Dorsal -Time 13:47 14:09 -Correct Patient Yes Yes -Correct Side, Site, Position Yes Yes -Correct Procedure Yes Yes -Procedure Performed Yes Yes -Type of Procedure Debridement Debridement -Clinical Debridement Subcutaneous Subcutaneous -Tissue Removed Subcutaneous Subcutaneous -Post Debridement (cm) - Length 1.5 0.2 -Post Debridement (cm) - Width 1.5 0.2 -Post Debridement (cm) - Depth 0.1 0.1 -Total Square (Post) (cm) 2.25 0.04 -Area of Debridement (cm) - Length 1.5 0.2 -Area of Debridement (cm) - Width 1.5 0.2 -Total Square (Area) (cm) 2.25 0.04 -Tunneling No No -Undermining/Tunneling No No -Circular Undermining No No -Wound/Ulcer Outcome Not Healed Not Healed -Ulcer Cleansing Rinsed/ Rinsed/ Irrigated with Irrigated with Saline Saline -Foul Odor after Cleansing No No -Bioengineered Tissue No No -Bleeding Controlled with Pressure Pressure -Offloading Yes Yes -Type of Offloading Surgical Shoe Surgical Shoe -Treatment Response Procedure Procedure Tolerated Well Tolerated Well -Debridement - Subq, 1st 20sq cm Yes Yes Pain Scale: 0-10 Numeric Is Patient Pain Free? Yes Yes - Nurse 3 - General Ulcer D/C NN Start: 05/23/21 13:13 Freq: Status: Active Protocol: Activity Type Activity Date Activity User E-Sign Co-Sign Detail Recorded Client Recorded Date Recorded By Document 05/23/21 14:03 RB [id number] 05/23/21 14:04 RB Document 05/30/21 14:28 RB [id number] 05/30/21 14:28 RB 05/23/21 05/30/21 14:03 14:28 Wound Care Nurse 3 2. R great toe Lateral -Ulcer Cleansing Rinsed/ Rinsed/ Irrigated with Irrigated with Saline Saline -Primary Dressing Applied Aquacel AG 4x4 Aquacel AG 4x4 -Primary Dressing Covered/Secured with Dry Gauze,Dry Dry Gauze,Dry Gauze & Roll Gauze & Roll Gauze,Secured Gauze,Secured with Tape with Tape -Aquacel AG 4x4 1 1 1. R great toe Dorsal -Ulcer Cleansing Rinsed/ Rinsed/ Irrigated with Irrigated with Saline Saline -Other Dressing aquacel ag aquacel ag -Primary Dressing Covered/Secured with Dry Gauze,Dry Dry Gauze,Dry Gauze & Roll Gauze & Roll Gauze,Secured Gauze,Secured with Tape with Tape Treatment Response Procedure Procedure Tolerated Well Tolerated Well Pain Scale: 0-10 Numeric Is Patient Pain Free? Yes Yes WC - Visit Discharge Discharge Condition Stable Stable Ambulatory Status Ambulatory Ambulatory Transportation Private Auto Private Auto Medication Reconcilliation completed & No No provided to patient/care provider Clinical Summary of Care Provided Yes Yes Notes: surgical shoe right foot Assessment/Plan Assessment/Plan (1) Ulcer of right foot with necrosis of bone: CODE(S): L97.514 - Non-pressure chronic ulcer of other part of right foot with necrosis of bone (2) Type 2 diabetes mellitus with diabetic polyneuropathy: CODE(S): E11.42 - Type 2 diabetes mellitus with diabetic polyneuropathy (3) Hallux limitus of right foot: CODE(S): M20.5X1 - Other deformities of toe(s) (acquired), right foot (4) Osteomyelitis: CODE(S): M86.9 - Osteomyelitis, unspecified QUALIFIERS: Laterality: right Osteomyelitis location: foot Osteomyelitis type: other acute Qualified Code(s): M86.171 - Other acute osteomyelitis, right ankle and foot (5) Other specified peripheral vascular diseases: CODE(S): I73.89 - Other specified peripheral vascular diseases (6) Delayed wound healing: CODE(S): T14.8XXD - Other injury of unspecified body region, subsequent encounter PLAN: I reviewed and discussed his case this afternoon. He was reassured there is no erythema or purulence to the foot however has continued exposed bone which is consistent with osteomyelitis. Debridement was performed as noted in the clinical panel. He is afebrile with vital with signs stable. He also debrided his hallux nail to avoid back pressure on his dorsal hallux ulcer site. Dressing change this afternoon: Aquacel Ag Wash: Soap and water Offload: Heel weightbearing with surgical shoe. To use assistive device. I recommend fully offloading the entire foot transitioning to nonweightbearing status with a walker or knee roller. I added a Plastizote liner and a foam offloading pad to take further pressure off of this ulcer site. His surgical shoe was further updated today by modifying the strap to avoid hallux contact. Vascular: He had previous lower extremity intervention including angioplasty in [place] ([facility]). He relates he did not follow-up as advised. I advised him to follow-up to see if there is additional intervention recommendations available due to his delayed healing. Host factors: He has uncontrolled diabetes with a self-reported A1c of over 9%. He understands this in combination with his known vascular disease make healing difficult. He is at risk for amputation he is made this previously clear that he will not proceed forward with this. I recommend nutritional education to optimize healing. I advised him to avoid skipping meals. Advised him to eat a whole food balanced diet that not only focuses on adequate (not excessive) protein intake so nutrient dense food intake. 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 He is amendable to review some resources if provided at follow up. Infection: He is also completing a 6 weeks of oral doxycycline. The Augmentin was discontinued due to intolerance. He was seen by infectious disease specialist today, Dr. Pollock; discussed. He is treated for osteomyelitis and will continue with hyperbaric oxygen therapy. We will see if he can get approved for continued treatments at [facility] location because he lives nearby. He has done well with this in the past. This is medically necessary to optimize healing. To return to clinic in 1 week. I answered all his questions. Note: [employer] speech recognition stockroom attendant software was used to create portions of this document. Sound-alike and misspelled words, as well as other stockroom attendant errors may be contained in the documentation. The medical decision making level is low. There is noted low risk of morbidity after considering this treatment plan and diagnostic data. The medical decision making level is limited based on data including the review of prior external notes, review of a prior test, or ordering a test.
[2021-06-06 13:58] VITALS: TEMP 36.6; BMI 29.6
--- NOTE | 2021-06-06 14:45 | PN.PCM_ITS ---
History of Present Illness Date of Service: 06/06/21 Chief Complaint: right great toe ulcer History of Wound: This 61-year-old diabetic male was seen bedside for right chronic great toe ulcer with osteomyelitis. He denies fever, chill, nausea, vomiting. He denies foot pain. I recently saw him in the hospital setting for acute cellulitis. It is noted he has already been through a full session of hyperbaric oxygen therapy at [facility] wound healing center in the [place]. He thinks he is having a side effect with his eyes and now wears glasses. He will continue to proceed with hyperbaric oxygen therapy sessions local if possible; prior authorization is still in process. He is taking antibiotics as advised and these were recommended by Dr. Pollock, infectious disease specialist. He denies known side effects or diarrhea. He wears a surgical shoe. Progress of Wound: Slight improvement Objective Data Objective Data Vital Signs: Vital Signs Temp Pulse Resp BP 97.9 F 82 16 140/94 H 06/06/21 13:58 05/23/21 13:14 05/30/21 13:29 05/30/21 13:29 Weight: 88.451 kg Body Mass Index (BMI) 29.6 Physical Exam Extremity Extremity Narrative: No calf tenderness Diminished pulses; dp is palpable hair noted to lower ankle level Muscle wasting noted Decreased loaded first metatarsophalangeal joint range of motion is consistent with hallux limitus Skin Skin Narrative: Skin discontinuity to plantar medial right hallux probes to deeper structures including muscle and bone. There is also skin discontinuity to dorsal right hallux adjacent to the proximal lateral nail border is dry with well adhered eschar and some fibrous tissue. There is serosangenous drainage only. No odor or purulence. There resolved erythema to the toe and midfoot. There is no fluctuance, bogginess, or palpable abscess. There is no crepitus with manipulation of the hallux interphalangeal joint noted. Neuro Neuro Narrative: Epicritic sensation light touch and pain with ulcer debridement noted Debridement Note Debridement Note Wound debrided: Plantar medial hallux right Wound Grade/Stage: 3 Type of Debridement: Excisional debridement Anesthesia Used: 4% Lidocaine Solution Depth: in the subcutaneous layer Percentage of wound debrided: 100 Instrument Used: #15 blade Tissue Removed: fibrous, devitalized subcutaneous, biofilm, slough Severity: Fat Layer Exposed Amount of bleeding with debridement: Mild Bleeding Controlled with: Pressure Patient tolerated procedure: Patient tolerated procedure well Post-Debridement Measurements and Additional Note: Post-Debridement Measurements/Treatment WC - Nurse 1 - General Ulcer Assessment Start: 05/23/21 13:13 Freq: Status: Active Protocol: REHAN Activity Type Activity Date Activity User E-Sign Co-Sign Detail Recorded Client Recorded Date Recorded By Document 05/23/21 13:14 RB [id number] 05/23/21 13:31 RB Document 05/30/21 13:29 ML [id number] 05/30/21 13:37 ML Document 06/06/21 13:58 KR Desktop 06/06/21 14:01 KR 05/23/21 05/30/21 06/06/21 13:14 13:29 13:58 WC - Today's Visit Information Type of service Initial Visit Follow-up Visit Follow-up Visit (Physician/CLAY TEMPERER (Physician/CLAY TEMPERER ) ) Arrival Mode Ambulatory Ambulatory Ambulatory Transfer Assistance None None Patient Identification Verified (Name & Yes Yes Yes ) Patient Requires Transmission-Based No No Precautions Safety Precautions NA Finger Stick Blood Sugar(mg/dl) (if 130 this am indicated): Blood Sugar Stated by Patient Height and Weight Height 5 ft 8 in Weight 88.451 kg Weight in Pounds 195.0 lbs Body Mass Index (BMI) 29.6 29.6 29.6 BMI Classification Overweight Overweight Overweight BSA - Felix 2.02 Vital Signs Temperature (97.8 F-99.1 F) 97.8 F 97.5 F L 97.9 F Temperature Source Temporal Temporal Temporal Pulse Rate (60-100) 82 Pulse Location Monitor Respiratory Rate (12-18) 18 16 Respiratory rate source Observation Blood Pressure (90/60-120/80) 162/76 H 140/94 H Blood Pressure Mean (mm Hg) 104 109 Source Monitor Position Semi-Fowlers Blood Pressure Location Left Arm History Since Last Visit- (Skip if this is Patient's initial visit) Have you changed medications since your No last visit? Any new allergies or adverse reactions No Had a fall/change in ADL's that may No increase risk of falls Signs or symptoms of abuse and/or No neglect since last visit Have you been in the hospital since your No last visit? Has dressing in place as prescribed Yes Has compression in place as prescribed N/A Has offloadiing in place as prescribed N/A Experienced any changes in pain level or No management Left Footwear Regular Shoe Right Footwear Regular Shoe Pain Scale: 0-10 Numeric Is Patient Pain Free? Yes Yes Lower Extremity Assessment/ Foot Assessment/ Toe Nail Assessment Right -Popliteal Doppler Multiphasic -Posterior Tibial Palpable Yes -Dorsalis Pedis Palpable No -Extremity Color Normal -Hair Growth on Legs Yes -Hair Growth on Toes No -Temperature of Extremity Warm -Dependent Rubor No -Blanched when Elevated No -Lipodermatosclerosis No -Other Deformity No -Prior Foot Ulcer No -Charcot Joint No -Prior Amputation No -Thick No -Discolored No -Deformed No -Improper Length & Hygeine Yes Left -Posterior Tibial Palpable Yes -Posterior Tibial Doppler Multiphasic -Dorsalis Pedis Palpable Yes -Dorsalis Pedis Doppler Multiphasic -Extremity Color Normal -Hair Growth on Legs Yes -Hair Growth on Toes No -Temperature of Extremity Warm -Capillary Refill Greater than 3 Seconds -Dependent Rubor No -Blanched when Elevated No -Lipodermatosclerosis No -Other Deformity No -Prior Foot Ulcer No -Charcot Joint No -Prior Amputation No -Thick No -Discolored No -Deformed No -Improper Length & Hygeine Yes Neuropathy Assessment Feet - Top Side and Bottom <Entered> (a) Communication Assessment Preferred language [place] Loading And Unloading Supervisor Required No Able to Read Yes Able to Write Yes Communication Tools None Caregiver Communication Skills No Impairment Impairment Right Hearing Abillity Normal Left Hearing Abillity Normal Visual Assistive Devices Glasses Teaching Assessment Preferences Verbal,Written, Demonstration Barriers to Learning None Readiness To Learn Good Willingness to Engage in Self Management Med Activies Readiness to Engage in Self Management Med Activities Anxiety Level Calm Cooperation Cooperative Perception Coherent Interest in Health Problem Asks Questions Education Importance Acknowledges Need Does Patient Smoke tobacco or other No substances Smoking Status Never smoker Functional Assessment Recent Decline in Ability to Perform Denies Any Declines Assistive Device With Patient No Culture/Nondenominational/Loading Supervisor Cultural/Nondenominational Needs that may affect No Treatment Plan Would you allow our hospital supervisor gear repair to No meet you for the purpose of spiritual/ emotional support? Loading Supervisor to contact place of scientology No Teaching: Wound Center *Welcome to the Wound Center -Person Taught Family -Teaching Method Discussion -Response to teaching Verbalize understanding (a) 1 - + throughout WC - Nurse 1 - General Ulcer Measurement Start: 05/23/21 13:13 Freq: Status: Active Protocol: Activity Type Activity Date Activity User E-Sign Co-Sign Detail Recorded Client Recorded Date Recorded By Document 05/23/21 13:14 RB [id number] 05/23/21 13:31 RB Document 05/30/21 13:29 ML [id number] 05/30/21 13:37 ML Document 06/06/21 13:58 KR Desktop 06/06/21 14:01 KR 05/23/21 05/30/21 06/06/21 13:14 13:29 13:58 Wound Center Nurse 1 2. R great toe Lateral -Combined with other wound No -Current Size (cm) - Length 0.6 0.6 1 -Current Size (cm) - Width 0.4 0.4 1 -Current Size (cm) - Depth 0.4 0.4 0.2 -Total Square Cm 0.24 0.24 1 -Photo Taken Yes -Tunneling No -Undermining/Tunneling Yes -Undermining/Tunneling Starts (O'clock 12 ) -Undermining/Tunneling Ends (O'clock) 12 -Maximum Distance (cm) 0.2 -Circular Undermining Yes -Exudate Amt Medium Medium Small -Exudate Type Serosanguineous Serosanguineous Serosanguineous -Wound Margin Flat & Intact Distinct, Distinct, Outline Outline Attached Attached -Granulation Amt Medium (34-66%) Large (67-100%) Medium (34-66%) -Granulation Quality [place] Red -Slough/Fibrin Yes -Necrosis Amt Small (1-33%) Medium (34-66%) Medium (34-66%) -Necrotic Tissue Type Adherent Slough Adherent Slough -Structure Exposed N/A -Texture (Ashlyn-wound Skin Appearance) Assessed Assessed Assessed, Scarring -Moisture (Ashlyn-wound Skin Appearance) Assessed Assessed No Abnormality, Assessed -Color (Ashlyn-wound Skin Appearance) Erythema Assessed No Abnormality, Assessed -Temperature (Ashlyn-wound Skin No Abnormality No Abnormality Appearance) (Pt Warm) (Pt Warm) -Tenderness on Palpation (Ashlyn-wound No No Skin Appearance) -Ulcer Cleansing Wound Cleanser Rinsed/ Rinsed/ Irrigated with Irrigated with Saline Saline -Foul Odor after Cleansing No No -Anesthetic Used 4% Lidocaine 5% Lidocaine 5% Lidocaine Solution Gel Gel 1. R great toe Dorsal -Combined with other wound No -Current Size (cm) - Length 0.8 0.1 1.1 -Current Size (cm) - Width 0.8 0.1 1.1 -Current Size (cm) - Depth 0.1 0.1 0.1 -Total Square Cm 0.64 0.01 1.21 -Photo Taken Yes -Tunneling No -Undermining/Tunneling No -Circular Undermining No -Exudate Amt Small Medium None Present -Exudate Type Serosanguineous Serosanguineous -Wound Margin Distinct, Distinct, Distinct, Outline Outline Outline Attached Attached Attached -Granulation Amt Medium (34-66%) Large (67-100%) Small (1-33%) -Granulation Quality [place] Red -Slough/Fibrin Yes Yes -Necrosis Amt Small (1-33%) Large (67-100%) Small (1-33%) -Necrotic Tissue Type Adherent Slough Adherent Slough Eschar -Structure Exposed N/A -Texture (Ashlyn-wound Skin Appearance) Assessed Assessed Assessed, Scarring -Moisture (Ashlyn-wound Skin Appearance) Assessed Assessed No Abnormality, Assessed -Color (Ashlyn-wound Skin Appearance) Assessed Assessed No Abnormality, Assessed -Temperature (Ashlyn-wound Skin No Abnormality No Abnormality No Abnormality Appearance) (Pt Warm) (Pt Warm) (Pt Warm) -Tenderness on Palpation (Ashlyn-wound No No No Skin Appearance) -Ulcer Cleansing Wound Cleanser Rinsed/ Rinsed/ Irrigated with Irrigated with Saline Saline -Foul Odor after Cleansing No No -Anesthetic Used 4% Lidocaine 5% Lidocaine 5% Lidocaine Solution Gel Gel Lower Limb Edema Present Yes Right Calf (cm) 34.5 Right Ankle (cm) 19.8 Left Ankle (cm) 34 Left Foot (cm) 19 WC - Nurse 2 - General Ulcer CM Notes Start: 05/23/21 13:13 Freq: Status: Active Protocol: Activity Type Activity Date Activity User E-Sign Co-Sign Detail Recorded Client Recorded Date Recorded By Document 05/23/21 13:46 [id number] 05/23/21 13:52 Document 05/30/21 14:07 JF [id number] 05/30/21 14:13 Document 06/06/21 14:22 JF [id number] 06/06/21 14:31 05/23/21 05/30/21 06/06/21 13:46 14:07 14:22 Wound Center Nurse 2 2. R great toe Lateral -Time 13:46 14:08 14:23 -Correct Patient Yes Yes Yes -Correct Side, Site, Position Yes Yes Yes -Correct Procedure Yes Yes Yes -Procedure Performed Yes Yes Yes -Type of Procedure Debridement Debridement Debridement -Clinical Debridement Subcutaneous Subcutaneous Subcutaneous -Tissue Removed Subcutaneous Subcutaneous Subcutaneous -Post Debridement (cm) - Length 1 1 1.3 -Post Debridement (cm) - Width 0.5 0.5 0.6 -Post Debridement (cm) - Depth 0.5 0.4 0.3 -Total Square (Post) (cm) 0.5 0.5 0.78 -Area of Debridement (cm) - Length 1 1 1.3 -Area of Debridement (cm) - Width 0.5 0.5 0.6 -Total Square (Area) (cm) 0.5 0.5 0.78 -Tunneling No No No -Undermining/Tunneling No No No -Circular Undermining No No No -Wound/Ulcer Outcome Not Healed Not Healed Not Healed -Ulcer Cleansing Rinsed/ Rinsed/ Rinsed/ Irrigated with Irrigated with Irrigated with Saline Saline Saline -Foul Odor after Cleansing No No No -Bioengineered Tissue No No No -Bleeding Controlled with Pressure Pressure Pressure -Offloading Yes Yes Yes -Type of Offloading Surgical Shoe Surgical Shoe Surgical Shoe -Treatment Response Procedure Procedure Procedure Tolerated Well Tolerated Well Tolerated Well -Debridement - Subq, 1st 20sq cm No No Yes 1. R great toe Dorsal -Time 13:47 14:09 14:24 -Correct Patient Yes Yes Yes -Correct Side, Site, Position Yes Yes Yes -Correct Procedure Yes Yes Yes -Procedure Performed Yes Yes Yes -Type of Procedure Debridement Debridement Debridement -Clinical Debridement Subcutaneous Subcutaneous Subcutaneous -Tissue Removed Subcutaneous Subcutaneous Subcutaneous -Post Debridement (cm) - Length 1.5 0.2 1.2 -Post Debridement (cm) - Width 1.5 0.2 1.2 -Post Debridement (cm) - Depth 0.1 0.1 0.1 -Total Square (Post) (cm) 2.25 0.04 1.44 -Area of Debridement (cm) - Length 1.5 0.2 1.2 -Area of Debridement (cm) - Width 1.5 0.2 1.2 -Total Square (Area) (cm) 2.25 0.04 1.44 -Tunneling No No No -Undermining/Tunneling No No No -Circular Undermining No No No -Wound/Ulcer Outcome Not Healed Not Healed Not Healed -Ulcer Cleansing Rinsed/ Rinsed/ Rinsed/ Irrigated with Irrigated with Irrigated with Saline Saline Saline -Foul Odor after Cleansing No No No -Bioengineered Tissue No No No -Bleeding Controlled with Pressure Pressure Pressure -Offloading Yes Yes Yes -Type of Offloading Surgical Shoe Surgical Shoe Surgical Shoe -Treatment Response Procedure Procedure Procedure Tolerated Well Tolerated Well Tolerated Well -Debridement - Subq, 1st 20sq cm Yes Yes No Pain Scale: 0-10 Numeric Is Patient Pain Free? Yes Yes Yes - Nurse 3 - General Ulcer D/C NN Start: 05/23/21 13:13 Freq: Status: Active Protocol: Activity Type Activity Date Activity User E-Sign Co-Sign Detail Recorded Client Recorded Date Recorded By Document 05/23/21 14:03 RB [id number] 05/23/21 14:04 RB Document 05/30/21 14:28 RB [id number] 05/30/21 14:28 RB 05/23/21 05/30/21 14:03 14:28 Wound Care Nurse 3 2. R great toe Lateral -Ulcer Cleansing Rinsed/ Rinsed/ Irrigated with Irrigated with Saline Saline -Primary Dressing Applied Aquacel AG 4x4 Aquacel AG 4x4 -Primary Dressing Covered/Secured with Dry Gauze,Dry Dry Gauze,Dry Gauze & Roll Gauze & Roll Gauze,Secured Gauze,Secured with Tape with Tape -Aquacel AG 4x4 1 1 1. R great toe Dorsal -Ulcer Cleansing Rinsed/ Rinsed/ Irrigated with Irrigated with Saline Saline -Other Dressing aquacel ag aquacel ag -Primary Dressing Covered/Secured with Dry Gauze,Dry Dry Gauze,Dry Gauze & Roll Gauze & Roll Gauze,Secured Gauze,Secured with Tape with Tape Treatment Response Procedure Procedure Tolerated Well Tolerated Well Pain Scale: 0-10 Numeric Is Patient Pain Free? Yes Yes - Visit Discharge Discharge Condition Stable Stable Ambulatory Status Ambulatory Ambulatory Transportation Private Auto Private Auto Medication Reconcilliation completed & No No provided to patient/care provider Clinical Summary of Care Provided Yes Yes Notes: surgical shoe right foot Assessment/Plan Assessment/Plan (1) Ulcer of right foot with necrosis of bone: CODE(S): L97.514 - Non-pressure chronic ulcer of other part of right foot with necrosis of bone (2) Type 2 diabetes mellitus with diabetic polyneuropathy: CODE(S): E11.42 - Type 2 diabetes mellitus with diabetic polyneuropathy (3) Hallux limitus of right foot: CODE(S): M20.5X1 - Other deformities of toe(s) (acquired), right foot (4) Osteomyelitis: CODE(S): M86.9 - Osteomyelitis, unspecified QUALIFIERS: Osteomyelitis type: other acute Osteomyelitis location: foot Laterality: right Qualified Code(s): M86.171 - Other acute osteomyelitis, right ankle and foot (5) Other specified peripheral vascular diseases: CODE(S): I73.89 - Other specified peripheral vascular diseases (6) Delayed wound healing: CODE(S): T14.8XXD - Other injury of unspecified body region, subsequent encounter PLAN: I reviewed and discussed his case this afternoon. He was reassured there is no erythema or purulence to the foot however has continued exposed bone which is consistent with osteomyelitis. Debridement was performed as noted in the clinical panel. He is afebrile with vital with signs stable. Dressing change this afternoon: Aquacel Ag to the plantar medial ulcer site. I recommend changing this daily. I recommend application of collagenase to the dorsal ulcer site on the hallux. A prescription was provided today and he was advised to apply nickel thickness daily. Wash: Soap and water Offload: Heel weightbearing with surgical shoe. To use assistive device. I recommend fully offloading the entire foot transitioning to nonweightbearing status with a walker or knee roller. I added a Plastizote liner and a foam offloading pad to take further pressure off of this ulcer site. His surgical shoe was further updated previously by modifying the strap to avoid hallux contact. Vascular: He had previous lower extremity intervention including angioplasty in [place] ([facility]). He relates he did not follow-up as advised. I advised him to follow-up to see if there is additional intervention recomme ndations available due to his delayed healing. Host factors: He has uncontrolled diabetes with a self-reported A1c of over 9%. He understands this in combination with his known vascular disease make healing difficult. He is at risk for amputation he is made this previously clear that he will not proceed forward with this. I recommend nutritional education to optimize healing. I advised him to avoid skipping meals. Advised him to eat a whole food balanced diet that not only focuses on adequate (not excessive) protein intake so nutrient dense food intake. He defers mechanical cad drafter referral. He is amendable to review some resources if provided at follow up. This will be sent electronically to him he provided his email. Infection: He is also completing a 6 weeks of oral doxycycline. The Augmentin was discontinued due to intolerance. He was seen by infectious disease specialist today, Dr. Pollock; discussed. He is treated for osteomyelitis and will continue with hyperbaric oxygen therapy. We will see if he can get approved for continued treatments at [facility] location because he lives nearby. He has done well with this in the past. This is medically necessary to optimize healing. We discussed potential benefits and side effects of hyperbarics and also how the mechanism of group hyperbarics versus individual chamber hyperbarics is comparable. He is concerned about his vision. We will start to see if he is approved and then will consider additional updated medical clearance prior to proceeding with the actual sessions. To return to clinic in 1 week. I answered all his questions. Note: [employer] speech recognition financial controller software was used to create portions of this document. Sound-alike and misspelled words, as well as other financial controller errors may be contained in the documentation.
== END 2021-06-10 23:59 ==
LOC: WC 13:15
PROVIDERS: PCP Family Medicine; Visit Provider Podiatrist
DX: E11.621 Type 2 diabetes mellitus with foot ulcer (principal); E11.69 Type 2 diabetes mellitus with other specified complication; L97.512 Non-pressure chronic ulcer of other part of right foot with fat layer exposed; M20.5X1 Other deformities of toe(s) (acquired), right foot; M86.171 Other acute osteomyelitis, right ankle and foot; E11.51 Type 2 diabetes mellitus with diabetic peripheral angiopathy without gangrene; E11.65 Type 2 diabetes mellitus with hyperglycemia; E11.42 Type 2 diabetes mellitus with diabetic polyneuropathy
CPT/HCPCS: 11042; 99213; G0463

== ENCOUNTER 2021-06-27 14:15 | Outpatient (RCR) | payer BC, SELFPAY ==
[2021-06-11 00:06] VITALS: BP 140/94; PULSE 82; RESP 16; TEMP 36.6; BMI 29.6
[2021-06-13 10:27] VITALS: BP 155/76; PULSE 76; RESP 20; TEMP 36.2; BMI 29.6
--- NOTE | 2021-06-13 11:33 | PCM.WC.PN ---
History of Present Illness Date of Service: 06/13/21 Chief Complaint: right great toe ulcer History of Wound: This 61-year-old diabetic male was seen bedside for right chronic great toe ulcer with osteomyelitis. He denies fever, chill, nausea, vomiting. He denies foot pain. I recently saw him in the hospital setting for acute cellulitis. It is noted he has already been through a full session of hyperbaric oxygen therapy at [facility] wound healing center in the [place]. He would like to continue with hyperbarics in [place] because he is having difficulty waiting for insurance approval at the [facility], [place], operated by [facility]. He is taking antibiotics as advised and these were recommended by Dr. Pollock, infectious disease specialist. He denies known side effects or diarrhea. He wears a surgical shoe. Progress of Wound: stable Objective Data Objective Data Vital Signs: Vital Signs Temp Pulse Resp BP 97.2 F L 76 20 H 155/76 H 06/13/21 10:27 06/13/21 10:27 06/13/21 10:27 06/13/21 10:27 Weight: 88.451 kg Body Mass Index (BMI) 29.6 Physical Exam Extremity Extremity Narrative: No calf tenderness Diminished pulses; dp is palpable hair noted to lower ankle level Muscle wasting noted Decreased loaded first metatarsophalangeal joint range of motion is consistent with hallux limitus Skin Skin Narrative: Skin discontinuity to plantar medial right hallux probes to deeper structures including muscle and bone. There is also skin discontinuity to dorsal right hallux adjacent to the proximal lateral nail border is dry with well adhered eschar and some fibrous tissue; stable. There is serosangenous drainage only. No odor or purulence. There resolved erythema to the toe and midfoot. There is no fluctuance, bogginess, or palpable abscess. There is no crepitus with manipulation of the hallux interphalangeal joint noted. Neuro Neuro Narrative: Epicritic sensation light touch and pain with ulcer debridement noted Debridement Note Debridement Note Wound debrided: right hallux Wound Grade/Stage: 3 Type of Debridement: Excisional debridement Anesthesia Used: 4% Lidocaine Solution Depth: in the subcutaneous layer Percentage of wound debrided: 100 Instrument Used: #15 blade Tissue Removed: fibrous, devitalized subcutaneous, biofilm, slough Severity: Fat Layer Exposed Amount of bleeding with debridement: Mild Bleeding Controlled with: Pressure Patient tolerated procedure: Patient tolerated procedure well Post-Debridement Measurements and Additional Note: Post-Debridement Measurements/Treatment - Nurse 1 - General Ulcer Assessment Start: 06/13/21 10:27 Freq: Status: Active Protocol: REHAN Activity Type Activity Date Activity User E-Sign Co-Sign Detail Recorded Client Recorded Date Recorded By Document 06/13/21 10:27 DL [id number] 06/13/21 10:32 DL 06/13/21 10:27 WC - Today's Visit Information Type of service Follow-up Visit (Physician/[employer] ) Arrival Mode Ambulatory Transfer Assistance None Height and Weight Body Mass Index (BMI) 29.6 BMI Classification Overweight Vital Signs Temperature (97.8 F-99.1 F) 97.2 F L Temperature Source Temporal Pulse Rate (60-100) 76 Pulse Location Monitor Respiratory Rate (12-18) 20 H Respiratory rate source Observation Blood Pressure (90/60-120/80) 155/76 H Blood Pressure Mean (mm Hg) 102 Source Monitor History Since Last Visit- (Skip if this is Patient's initial visit) Have you changed medications since your No last visit? Any new allergies or adverse reactions No Had a fall/change in ADL's that may No increase risk of falls Signs or symptoms of abuse and/or No neglect since last visit Have you been in the hospital since your No last visit? Has dressing in place as prescribed Yes Has compression in place as prescribed N/A Has offloadiing in place as prescribed Yes Right Footwear Surgical Shoe with pressure relief insole Pain Scale: 0-10 Numeric Is Patient Pain Free? Yes - Nurse 1 - General Ulcer Measurement Start: 06/13/21 10:27 Freq: Status: Active Protocol: Activity Type Activity Date Activity User E-Sign Co-Sign Detail Recorded Client Recorded Date Recorded By Document 06/13/21 10:27 DL [id number] 06/13/21 10:32 DL 06/13/21 10:27 Wound Center Nurse 1 2. R great toe Lateral -Current Size (cm) - Length 1.1 -Current Size (cm) - Width 7 -Current Size (cm) - Depth 0.2 -Total Square Cm 7.7 -Photo Taken No -Exudate Amt Small -Exudate Type Serosanguineous -Wound Margin Distinct, Outline Attached -Granulation Amt Medium (34-66%) -Granulation Quality Red -Necrosis Amt Medium (34-66%) -Necrotic Tissue Type Adherent Slough -Structure Exposed N/A -Texture (Ashlyn-wound Skin Appearance) Localized Edema ,Scarring -Moisture (Ashlyn-wound Skin Appearance) Dry/Scaly -Color (Ashlyn-wound Skin Appearance) Rubor -Temperature (Ashlyn-wound Skin No Abnormality Appearance) (Pt Warm) -Tenderness on Palpation (Ashlyn-wound No Skin Appearance) -Ulcer Cleansing Soap and Water -Foul Odor after Cleansing No -Anesthetic Used 4% Lidocaine Solution 1. R great toe Dorsal -Current Size (cm) - Length 1.7 -Current Size (cm) - Width 2 -Current Size (cm) - Depth 0.1 -Total Square Cm 3.4 -Photo Taken No -Exudate Amt Small -Exudate Type Serosanguineous -Wound Margin Thickened -Granulation Amt None Present (0 %) -Necrotic Tissue Type Eschar -Structure Exposed N/A -Texture (Ashlyn-wound Skin Appearance) Localized Edema ,Scarring -Moisture (Ashlyn-wound Skin Appearance) Dry/Scaly -Color (Ashlyn-wound Skin Appearance) Rubor -Temperature (Ashlyn-wound Skin No Abnormality Appearance) (Pt Warm) -Ulcer Cleansing Rinsed/ Irrigated with Saline -Foul Odor after Cleansing No -Anesthetic Used 4% Lidocaine Solution WC - Nurse 2 - General Ulcer CM Notes Start: 06/13/21 10:27 Freq: Status: Active Protocol: Activity Type Activity Date Activity User E-Sign Co-Sign Detail Recorded Client Recorded Date Recorded By Document 06/13/21 10:50 NANETTE [id number] 06/13/21 10:56 NANETTE 06/13/21 10:50 Wound Center Nurse 2 2. R great toe Lateral -Time 10:51 -Correct Patient Yes -Correct Side, Site, Position Yes -Correct Procedure Yes -Procedure Performed Yes -Type of Procedure Debridement -Clinical Debridement Subcutaneous -Tissue Removed Subcutaneous -Post Debridement (cm) - Length 1.2 -Post Debridement (cm) - Width 0.7 -Post Debridement (cm) - Depth 0.2 -Total Square (Post) (cm) 0.84 -Area of Debridement (cm) - Length 1.2 -Area of Debridement (cm) - Width 0.7 -Total Square (Area) (cm) 0.84 -Tunneling No -Undermining/Tunneling No -Circular Undermining No -Wound/Ulcer Outcome Not Healed -Ulcer Cleansing Rinsed/ Irrigated with Saline -Foul Odor after Cleansing No -Bioengineered Tissue No -Bleeding Controlled with Pressure -Offloading Yes -Type of Offloading Surgical Shoe -Treatment Response Procedure Tolerated Well -Debridement - Subq, 1st 20sq cm No 1. R great toe Dorsal -Time 10:51 -Correct Patient No -Correct Side, Site, Position No -Correct Procedure No -Procedure Performed No -Post Debridement (cm) - Width 2 -Post Debridement (cm) - Depth 0.1 -Tunneling No -Undermining/Tunneling No -Circular Undermining No -Wound/Ulcer Outcome Not Healed -Ulcer Cleansing Rinsed/ Irrigated with Saline -Foul Odor after Cleansing No -Bioengineered Tissue No -Bleeding Controlled with Pressure -Offloading Yes -Type of Offloading Surgical Shoe -Treatment Response Procedure Tolerated Well -Debridement - Subq, 1st 20sq cm Yes Pain Scale: 0-10 Numeric Is Patient Pain Free? Yes Assessment/Plan Assessment/Plan (1) Ulcer of right foot with necrosis of bone: CODE(S): L97.514 - Non-pressure chronic ulcer of other part of right foot with necrosis of bone (2) Type 2 diabetes mellitus with diabetic polyneuropathy: CODE(S): E11.42 - Type 2 diabetes mellitus with diabetic polyneuropathy (3) Hallux limitus of right foot: CODE(S): M20.5X1 - Other deformities of toe(s) (acquired), right foot (4) Osteomyelitis: CODE(S): M86.9 - Osteomyelitis, unspecified QUALIFIERS: Osteomyelitis type: other acute Osteomyelitis location: foot Laterality: right Qualified Code(s): M86.171 - Other acute osteomyelitis, right ankle and foot (5) Other specified peripheral vascular diseases: CODE(S): I73.89 - Other specified peripheral vascular diseases (6) Delayed wound healing: CODE(S): T14.8XXD - Other injury of unspecified body region, subsequent encounter PLAN: I reviewed and discussed his case this afternoon. He was reassured there is no erythema or purulence to the foot however has continued exposed bone which is consistent with osteomyelitis. Debridement was performed as noted in the clinical panel. He is afebrile with vital with signs stable. Dressing change this afternoon: Aquacel Ag to the plantar medial ulcer site. I recommend changing this daily. I recommend application of collagenase to the dorsal ulcer site on the hallux. Wash: Soap and water Offload: Heel weightbearing with surgical shoe. To use assistive device. I recommend fully offloading the entire foot transitioning to nonweightbearing status with a walker or knee roller. I added a Plastizote liner and a foam offloading pad to take further pressure off of this ulcer site. His surgical shoe was further updated previously by modifying the strap to avoid hallux contact. Vascular: He had previous lower extremity intervention including angioplasty in [place] ([facility]). He relates he did not follow-up as advised. I advised him to follow-up to see if there is additional intervention recommendations available due to his delayed healing. He relates his vascular surgeon is moving and he is interested in following up local. A referral to Dr. Wells was provided. Host factors: He has uncontrolled diabetes with a self-reported A1c of over 9%. He understands this in combination with his known vascular disease make healing difficult. He is at risk for amputation he is made this previously clear that he will not proceed forward with this. I recommend nutritional education to optimize healing. I advised him to avoid skipping meals. Advised him to eat a whole food balanced diet that not only focuses on adequate (not excessive) protein but also nutrient dense food intake. 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 Resources were provided as reviewed them. Infection: He is also completing a 6 weeks of oral doxycycline. The Augmentin was discontinued due to intolerance. He was seen by infectious disease specialist today, Dr. Pollock; discussed. He is treated for osteomyelitis and will continue with hyperbaric oxygen therapy. He confirms today that he wants to proceed at [facility]. To return to clinic in 1 week. I answered all his questions. Note: [employer] speech recognition electronic game developer software was used to create portions of this document. Sound-alike and misspelled words, as well as other electronic game developer errors may be contained in the documentation. He is at risk for losing his toe however the current treatment plan involves limb salvage. We discussed this in extent today. 20 minutes was spent on this encounter. This included face to face and non face to face care including preparing for the visit, reviewing the history, performing the exam, counseling and providing education to the patient, family, or caregiver, ordering medications/test/ procedures if indicated as documented, communicating with other healthcare providers, documenting information in the medical record, interpreting / sharing this information when indicated as documented, and care coordination.
[2021-06-20 14:41] VITALS: BP 153/80; PULSE 80; RESP 20; TEMP 36.1; BMI 29.6
--- NOTE | 2021-06-20 16:17 | PN.PCM_ITS ---
History of Present Illness Date of Service: 06/20/21 Chief Complaint: right great toe ulcer History of Wound: This 61-year-old diabetic male was seen bedside for right chronic great toe ulcer with osteomyelitis. He denies fever, chill, nausea, vomiting. He denies foot pain. I recently saw him in the hospital setting for acute cellulitis. It is noted he has already been through a full session of hyperbaric oxygen therapy at [facility] wound healing center in the [place]. He would like to continue with hyperbarics in [place] because he is having difficulty waiting for insurance approval at the [facility]. He is taking antibiotics as advised and these were recommended by Dr. Pollock, infectious disease specialist. He denies known side effects or diarrhea. He wears a surgical shoe. He thinks the top of his toe looks the same. Progress of Wound: stable Objective Data Objective Data Vital Signs: Vital Signs Temp Pulse Resp BP 96.9 F L 80 20 H 153/80 H 06/20/21 14:41 06/20/21 14:41 06/20/21 14:41 06/20/21 14:41 Weight: 88.451 kg Body Mass Index (BMI) 29.6 Physical Exam Extremity Extremity Narrative: No calf tenderness Diminished pulses; dp is palpable hair noted to lower ankle level Muscle wasting noted Decreased loaded first metatarsophalangeal joint range of motion is consistent with hallux limitus Skin Skin Narrative: Skin discontinuity to plantar medial right hallux probes to deeper structures including muscle and bone. There is also skin discontinuity to dorsal right hallux adjacent to the proximal lateral nail border is dry with well adhered eschar and some fibrous tissue; stable and decreased. There is serosangenous drainage only. No odor or purulence. There is no erythema to the toe and midfoot. There is no fluctuance, bogginess, or palpable abscess. There is no crepitus with manipulation of the hallux interphalangeal joint noted. Neuro Neuro Narrative: Epicritic sensation light touch and pain with ulcer debridement noted Debridement Note Debridement Note Wound debrided: right hallux Wound Grade/Stage: 1 Type of Debridement: Excisional debridement Anesthesia Used: 4% Lidocaine Solution Depth: in the subcutaneous layer Percentage of wound debrided: 100 Instrument Used: #15 blade Tissue Removed: fibrous, devitalized subcutaneous, biofilm, slough Severity: Fat Layer Exposed Amount of bleeding with debridement: Mild Bleeding Controlled with: Pressure Patient tolerated procedure: Patient tolerated procedure well Post-Debridement Measurements and Additional Note: Post-Debridement Measurements/Treatment WC - Nurse 1 - General Ulcer Assessment Start: 06/13/21 10:27 Freq: Status: Active Protocol: REHAN Activity Type Activity Date Activity User E-Sign Co-Sign Detail Recorded Client Recorded Date Recorded By Document 06/13/21 10:27 DL [id number] 06/13/21 10:32 DL Document 06/20/21 14:41 DL [id number] 06/20/21 14:48 DL 06/13/21 06/20/21 10:27 14:41 WC - Today's Visit Information Type of service Follow-up Visit Follow-up Visit (Physician/HIDE BUYER (Physician/HIDE BUYER ) ) Arrival Mode Ambulatory Ambulatory Transfer Assistance None None Patient Identification Verified (Name & Yes ) Patient Requires Transmission-Based No Precautions Finger Stick Blood Sugar(mg/dl) (if didnt check indicated): Blood Sugar Stated by Patient Height and Weight Body Mass Index (BMI) 29.6 29.6 BMI Classification Overweight Overweight Vital Signs Temperature (97.8 F-99.1 F) 97.2 F L 96.9 F L Temperature Source Temporal Temporal Pulse Rate (60-100) 76 80 Pulse Location Monitor Monitor Respiratory Rate (12-18) 20 H 20 H Respiratory rate source Observation Observation Blood Pressure (90/60-120/80) 155/76 H 153/80 H Blood Pressure Mean (mm Hg) 102 104 Source Monitor Monitor History Since Last Visit- (Skip if this is Patient's initial visit) Have you changed medications since your No No last visit? Any new allergies or adverse reactions No No Had a fall/change in ADL's that may No No increase risk of falls Signs or symptoms of abuse and/or No No neglect since last visit Have you been in the hospital since your No last visit? Has dressing in place as prescribed Yes Yes Has compression in place as prescribed N/A N/A Has offloadiing in place as prescribed Yes Yes Experienced any changes in pain level or No management Right Footwear Surgical Shoe Surgical Shoe with pressure with pressure relief insole relief insole Pain Scale: 0-10 Numeric Is Patient Pain Free? Yes Yes JAE - Nurse 1 - General Ulcer Measurement Start: 06/13/21 10:27 Freq: Status: Active Protocol: Activity Type Activity Date Activity User E-Sign Co-Sign Detail Recorded Client Recorded Date Recorded By Document 06/13/21 10:27 DL [id number] 06/13/21 10:32 DL Document 06/20/21 14:41 DL [id number] 06/20/21 14:48 DL 06/13/21 06/20/21 10:27 14:41 Wound Center Nurse 1 2. R great toe Lateral -Current Size (cm) - Length 1.1 1.1 -Current Size (cm) - Width 7 0.7 -Current Size (cm) - Depth 0.2 0.2 -Total Square Cm 7.7 0.77 -Photo Taken No No -Exudate Amt Small Small -Exudate Type Serosanguineous Serosanguineous -Wound Margin Distinct, Distinct, Outline Outline Attached Attached -Granulation Amt Medium (34-66%) None Present (0 %) -Granulation Quality Red -Necrosis Amt Medium (34-66%) Large (67-100%) -Necrotic Tissue Type Adherent Slough Adherent Slough -Structure Exposed N/A N/A -Texture (Ashlyn-wound Skin Appearance) Localized Edema Localized Edema ,Scarring ,Scarring -Moisture (Ashlyn-wound Skin Appearance) Dry/Scaly No Abnormality -Color (Ashlyn-wound Skin Appearance) Rubor Erythema -Temperature (Ashlyn-wound Skin No Abnormality No Abnormality Appearance) (Pt Warm) (Pt Warm) -Tenderness on Palpation (Ashlyn-wound No No Skin Appearance) -Ulcer Cleansing Soap and Water Rinsed/ Irrigated with Saline -Foul Odor after Cleansing No No -Anesthetic Used 4% Lidocaine 5% Lidocaine Solution Gel 1. R great toe Dorsal -Current Size (cm) - Length 1.7 1.2 -Current Size (cm) - Width 2 1 -Current Size (cm) - Depth 0.1 0.1 -Total Square Cm 3.4 1.2 -Photo Taken No No -Exudate Amt Small None Present -Exudate Type Serosanguineous -Wound Margin Thickened Thickened -Granulation Amt None Present (0 None Present (0 %) %) -Necrosis Amt Large (67-100%) -Necrotic Tissue Type Eschar Eschar -Structure Exposed N/A N/A -Texture (Ashlyn-wound Skin Appearance) Localized Edema Localized Edema ,Scarring ,Scarring -Moisture (Ashlyn-wound Skin Appearance) Dry/Scaly No Abnormality -Color (Ashlyn-wound Skin Appearance) Rubor Erythema -Temperature (Ashlyn-wound Skin No Abnormality No Abnormality Appearance) (Pt Warm) (Pt Warm) -Tenderness on Palpation (Ashlyn-wound No Skin Appearance) -Ulcer Cleansing Rinsed/ Rinsed/ Irrigated with Irrigated with Saline Saline -Foul Odor after Cleansing No No -Anesthetic Used 4% Lidocaine 5% Lidocaine Solution Gel WC - Nurse 2 - General Ulcer CM Notes Start: 06/13/21 10:27 Freq: Status: Active Protocol: Activity Type Activity Date Activity User E-Sign Co-Sign Detail Recorded Client Recorded Date Recorded By Document 06/13/21 10:50 [id number] 06/13/21 10:56 Document 06/20/21 15:10 [id number] 06/20/21 15:16 06/13/21 06/20/21 10:50 15:10 Wound Center Nurse 2 2. R great toe Lateral -Time 10:51 15:11 -Correct Patient Yes Yes -Correct Side, Site, Position Yes Yes -Correct Procedure Yes Yes -Procedure Performed Yes Yes -Type of Procedure Debridement Debridement -Clinical Debridement Subcutaneous Subcutaneous -Tissue Removed Subcutaneous Subcutaneous -Post Debridement (cm) - Length 1.2 1.2 -Post Debridement (cm) - Width 0.7 0.8 -Post Debridement (cm) - Depth 0.2 0.1 -Total Square (Post) (cm) 0.84 0.96 -Area of Debridement (cm) - Length 1.2 1.2 -Area of Debridement (cm) - Width 0.7 0.8 -Total Square (Area) (cm) 0.84 0.96 -Tunneling No No -Undermining/Tunneling No No -Circular Undermining No No -Wound/Ulcer Outcome Not Healed Not Healed -Ulcer Cleansing Rinsed/ Rinsed/ Irrigated with Irrigated with Saline Saline -Foul Odor after Cleansing No No -Bioengineered Tissue No No -Bleeding Controlled with Pressure Pressure -Offloading Yes Yes -Type of Offloading Surgical Shoe Surgical Shoe -Treatment Response Procedure Procedure Tolerated Well Tolerated Well -Debridement - Subq, 1st 20sq cm No No 1. R great toe Dorsal -Time 10:51 15:11 -Correct Patient No Yes -Correct Side, Site, Position No Yes -Correct Procedure No Yes -Procedure Performed No Yes -Type of Procedure Debridement -Clinical Debridement Subcutaneous -Tissue Removed Subcutaneous -Post Debridement (cm) - Length 1.2 -Post Debridement (cm) - Width 2 1.1 -Post Debridement (cm) - Depth 0.1 0.1 -Total Square (Post) (cm) 1.32 -Area of Debridement (cm) - Length 1.2 -Area of Debridement (cm) - Width 1.1 -Total Square (Area) (cm) 1.32 -Tunneling No No -Undermining/Tunneling No No -Circular Undermining No No -Wound/Ulcer Outcome Not Healed Not Healed -Ulcer Cleansing Rinsed/ Rinsed/ Irrigated with Irrigated with Saline Saline -Foul Odor after Cleansing No No -Bioengineered Tissue No No -Bleeding Controlled with Pressure Pressure -Offloading Yes Yes -Type of Offloading Surgical Shoe Surgical Shoe -Treatment Response Procedure Procedure Tolerated Well Tolerated Well -Debridement - Subq, 1st 20sq cm Yes Yes Pain Scale: 0-10 Numeric Is Patient Pain Free? Yes Yes - Nurse 3 - General Ulcer D/C NN Start: 06/13/21 10:27 Freq: Status: Active Protocol: Activity Type Activity Date Activity User E-Sign Co-Sign Detail Recorded Client Recorded Date Recorded By Document 06/13/21 11:38 RB [id number] 06/13/21 11:40 RB Document 06/20/21 15:31 RB Desktop 06/20/21 15:31 RB 06/13/21 06/20/21 11:38 15:31 Wound Care Nurse 3 2. R great toe Lateral -Ulcer Cleansing Rinsed/ Irrigated with Saline -Other Dressing hydrogel hydrogel -Primary Dressing Covered/Secured with Dry Gauze,Dry Dry Gauze, Gauze & Roll Secured with Gauze,Secured Tape with Tape 1. R great toe Dorsal -Ulcer Cleansing Rinsed/ Irrigated with Saline -Other Dressing hydrogel hydrogel -Primary Dressing Covered/Secured with Dry Gauze & Dry Gauze, Roll Gauze, Secured with Secured with Tape Tape Treatment Response Procedure Procedure Tolerated Well Tolerated Well Pain Scale: 0-10 Numeric Is Patient Pain Free? Yes Yes WC - Visit Discharge Discharge Condition Stable Stable Ambulatory Status Ambulatory Ambulatory Transportation Private Auto Private Auto Medication Reconcilliation completed & No No provided to patient/care provider Clinical Summary of Care Provided Yes Yes Assessment/Plan Assessment/Plan (1) Ulcer of right foot with necrosis of bone: CODE(S): L97.514 - Non-pressure chronic ulcer of other part of right foot with necrosis of bone (2) Type 2 diabetes mellitus with diabetic polyneuropathy: CODE(S): E11.42 - Type 2 diabetes mellitus with diabetic polyneuropathy (3) Hallux limitus of right foot: CODE(S): M20.5X1 - Other deformities of toe(s) (acquired), right foot (4) Osteomyelitis: CODE(S): M86.9 - Osteomyelitis, unspecified QUALIFIERS: Laterality: right Osteomyelitis location: foot Osteomyelitis type: other acute Qualified Code(s): M86.171 - Other acute osteomyelitis, right ankle and foot (5) Other specified peripheral vascular diseases: CODE(S): I73.89 - Other specified peripheral vascular diseases (6) Delayed wound healing: CODE(S): T14.8XXD - Other injury of unspecified body region, subsequent encounter PLAN: I reviewed and discussed his case this afternoon. He was reassured there is no erythema or purulence to the foot however has continued exposed bone which is consistent with osteomyelitis. Debridement was performed as noted in the clinical panel. Dorsal hallux site was #to allow better collagenase penetration. He is afebrile with vital with signs stable. Dressing change this afternoon: Aquacel Ag to the plantar medial ulcer site. I recommend changing this daily. I recommend application of collagenase to the dorsal ulcer site on the hallux. Wash: Soap and water Offload: Heel weightbearing with surgical shoe. To use assistive device. I recommend fully offloading the entire foot transitioning to nonweightbearing status with a walker or knee roller. I added a Plastizote liner and a foam offloading pad to take further pressure off of this ulcer site. His surgical sh oe was further updated previously by modifying the strap to avoid hallux contact. Vascular: He had previous lower extremity intervention including angioplasty in [place] ([facility]). He relates he did not follow-up as advised. I advised him to follow-up to see if there is additional intervention recommendations available due to his delayed healing. He relates his vascular surgeon is moving and he is interested in following up local. A referral to Dr. Wells was provided and he is scheduled to follow-up in 2 weeks. Host factors: He has uncontrolled diabetes with a self-reported A1c of over 9%. He understands this in combination with his known vascular disease make healing difficult. He is at risk for amputation he is made this previously clear that he will not proceed forward with this. I recommend nutritional education to optimize healing. I advised him to avoid skipping meals. Advised him to eat a whole food balanced diet that not only focuses on adequate (not excessive) protein but also nutrient dense food intake. He defers dye range tender referral. Resources were provided as reviewed them. Infection: He is also completing a 6 weeks of oral doxycycline. The Augmentin was discontinued due to intolerance. He was seen by infectious disease specialist today, Dr. Pollock; discussed. He is treated for osteomyelitis and will continue with hyperbaric oxygen therapy. He confirms today that he wants to proceed at [facility]. To return to clinic in 1 week. I answered all his questions. Note: [employer] speech recognition wood strip block floor installer software was used to create portions of this document. Sound-alike and misspelled words, as well as other wood strip block floor installer errors may be contained in the documentation. He is at risk for losing his toe however the current treatment plan involves limb salvage. We discussed this in extent today.
[2021-06-27 14:20] VITALS: BP 128/74; PULSE 65; TEMP 36.6; BMI 29.6
--- NOTE | 2021-06-27 15:59 | PCM.WC.PN ---
History of Present Illness Date of Service: 06/27/21 Chief Complaint: right great toe ulcer History of Wound: This 61-year-old diabetic male was seen bedside for right chronic great toe ulcer with osteomyelitis. He denies fever, chill, nausea, vomiting. He denies foot pain. I recently saw him in the hospital setting for acute cellulitis. It is noted he has already been through a full session of hyperbaric oxygen therapy at [facility] in the [place] and he has been approved for another course and has been attending. He is taking antibiotics as advised and these were recommended by Dr. Pollock, infectious disease specialist. He denies known side effects or diarrhea. He wears a surgical shoe. He thinks the top of his toe looks the same. He did yard work earlier today. He is not aware that he has a new wound to his second toe and does not recall bumping into anything while he was doing yard work outside. He relates he accidentally cut the tip of his toe many years ago with scissors and he inquires if this is what happened. Progress of Wound: stable Objective Data Objective Data Vital Signs: Vital Signs Temp Pulse Resp BP 97.8 F 65 20 H 128/74 H 06/27/21 14:20 06/27/21 14:20 06/20/21 14:41 06/27/21 14:20 Weight: 88.451 kg Body Mass Index (BMI) 29.6 Physical Exam Extremity Extremity Narrative: No calf tenderness Diminished pulses; dp is palpable hair noted to lower ankle level Muscle wasting noted Decreased loaded first metatarsophalangeal joint range of motion is consistent with hallux limitus Skin Skin Narrative: Skin discontinuity to plantar medial right hallux probes to deeper structures including muscle and bone. There is also skin discontinuity to dorsal right hallux adjacent to the proximal lateral nail border is dry with well adhered eschar and some fibrous tissue; stable and decreased. There is serosangenous drainage only. No odor or purulence. There is no erythema to the toe and midfoot. There is no fluctuance, bogginess, or palpable abscess. There is no crepitus with manipulation of the hallux interphalangeal joint noted. New small skin discontinuity to distal second toe. no deep tissue exposure Neuro Neuro Narrative: Epicritic sensation light touch and pain with ulcer debridement noted Debridement Note Debridement Note Wound debrided: Hallux, second toe of right foot Wound Grade/Stage: 1,3 Type of Debridement: Excisional debridement Anesthesia Used: 4% Lidocaine Solution Depth: in the subcutaneous layer Percentage of wound debrided: 100 Instrument Used: #15 blade Tissue Removed: fibrous, devitalized subcutaneous, biofilm, slough Severity: Fat Layer Exposed Amount of bleeding with debridement: Mild Bleeding Controlled with: Pressure Patient tolerated procedure: Patient tolerated procedure well Post-Debridement Measurements and Additional Note: Post-Debridement Measurements/Treatment - Nurse 1 - General Ulcer Assessment Start: 06/13/21 10:27 Freq: Status: Active Protocol: REHAN Activity Type Activity Date Activity User E-Sign Co-Sign Detail Recorded Client Recorded Date Recorded By Document 06/13/21 10:27 DL [id number] 06/13/21 10:32 DL Document 06/20/21 14:41 DL [id number] 06/20/21 14:48 DL Document 06/27/21 14:20 KR [id number] 06/27/21 14:24 KR 06/13/21 06/20/21 06/27/21 10:27 14:41 14:20 - Today's Visit Information Type of service Follow-up Visit Follow-up Visit Follow-up Visit (Physician/ELECTROMECHANICAL ASSEMBLY TECHNICIAN (Physician/ELECTROMECHANICAL ASSEMBLY TECHNICIAN (Physician/ELECTROMECHANICAL ASSEMBLY TECHNICIAN ) ) ) Arrival Mode Ambulatory Ambulatory Ambulatory Transfer Assistance None None Patient Identification Verified (Name & Yes Yes ) Patient Requires Transmission-Based No Precautions Finger Stick Blood Sugar(mg/dl) (if didnt check indicated): Blood Sugar Stated by Patient Height and Weight Body Mass Index (BMI) 29.6 29.6 29.6 BMI Classification Overweight Overweight Overweight Vital Signs Temperature (97.8 F-99.1 F) 97.2 F L 96.9 F L 97.8 F Temperature Source Temporal Temporal Temporal Pulse Rate (60-100) 76 80 65 Pulse Location Monitor Monitor Monitor Respiratory Rate (12-18) 20 H 20 H Respiratory rate source Observation Observation Blood Pressure (90/60-120/80) 155/76 H 153/80 H 128/74 H Blood Pressure Mean (mm Hg) 102 104 92 Source Monitor Monitor Monitor Position Semi-Fowlers Blood Pressure Location Right Arm History Since Last Visit- (Skip if this is Patient's initial visit) Have you changed medications since your No No No last visit? Any new allergies or adverse reactions No No No Had a fall/change in ADL's that may No No No increase risk of falls Signs or symptoms of abuse and/or No No No neglect since last visit Have you been in the hospital since your No No last visit? Has dressing in place as prescribed Yes Yes Yes Has compression in place as prescribed N/A N/A N/A Has offloadiing in place as prescribed Yes Yes N/A Experienced any changes in pain level or No No management Left Footwear Regular Shoe Right Footwear Surgical Shoe Surgical Shoe Regular Shoe with pressure with pressure relief insole relief insole Pain Scale: 0-10 Numeric Is Patient Pain Free? Yes Yes Yes WC - Nurse 1 - General Ulcer Measurement Start: 06/13/21 10:27 Freq: Status: Active Protocol: Activity Type Activity Date Activity User E-Sign Co-Sign Detail Recorded Client Recorded Date Recorded By Document 06/13/21 10:27 DL [id number] 06/13/21 10:32 DL Document 06/20/21 14:41 DL [id number] 06/20/21 14:48 DL Document 06/27/21 14:20 KR [id number] 06/27/21 14:24 KR 06/13/21 06/20/21 06/27/21 10:27 14:41 14:20 Wound Center Nurse 1 2. R great toe Lateral -Current Size (cm) - Length 1.1 1.1 1 -Current Size (cm) - Width 7 0.7 0.5 -Current Size (cm) - Depth 0.2 0.2 0.3 -Total Square Cm 7.7 0.77 0.5 -Photo Taken No No -Exudate Amt Small Small Small -Exudate Type Serosanguineous Serosanguineous Serosanguineous -Wound Margin Distinct, Distinct, Distinct, Outline Outline Outline Attached Attached Attached -Granulation Amt Medium (34-66%) None Present (0 %) -Granulation Quality Red -Necrosis Amt Medium (34-66%) Large (67-100%) -Necrotic Tissue Type Adherent Slough Adherent Slough -Structure Exposed N/A N/A -Texture (Ashlyn-wound Skin Appearance) Localized Edema Localized Edema Assessed, ,Scarring ,Scarring Scarring -Moisture (Ashlyn-wound Skin Appearance) Dry/Scaly No Abnormality No Abnormality, Assessed -Color (Ashlyn-wound Skin Appearance) Rubor Erythema No Abnormality, Assessed -Temperature (Ashlyn-wound Skin No Abnormality No Abnormality No Abnormality Appearance) (Pt Warm) (Pt Warm) (Pt Warm) -Tenderness on Palpation (Ashlyn-wound No No No Skin Appearance) -Ulcer Cleansing Soap and Water Rinsed/ Rinsed/ Irrigated with Irrigated with Saline Saline -Foul Odor after Cleansing No No No -Anesthetic Used 4% Lidocaine 5% Lidocaine 5% Lidocaine Solution Gel Gel 1. R great toe Dorsal -Current Size (cm) - Length 1.7 1.2 0.7 -Current Size (cm) - Width 2 1 0.5 -Current Size (cm) - Depth 0.1 0.1 0.1 -Total Square Cm 3.4 1.2 0.35 -Photo Taken No No -Exudate Amt Small None Present Medium -Exudate Type Serosanguineous Serosanguineous -Wound Margin Thickened Thickened Distinct, Outline Attached -Granulation Amt None Present (0 None Present (0 Medium (34-66%) %) %) -Granulation Quality Red -Necrosis Amt Large (67-100%) Medium (34-66%) -Necrotic Tissue Type Eschar Eschar Adherent Slough -Structure Exposed N/A N/A -Texture (Ashlyn-wound Skin Appearance) Localized Edema Localized Edema Assessed, ,Scarring ,Scarring Scarring -Moisture (Ashlyn-wound Skin Appearance) Dry/Scaly No Abnormality No Abnormality, Assessed -Color (Ashlyn-wound Skin Appearance) Rubor Erythema No Abnormality, Assessed -Temperature (Ashlyn-wound Skin No Abnormality No Abnormality No Abnormality Appearance) (Pt Warm) (Pt Warm) (Pt Warm) -Tenderness on Palpation (Ashyln-wound No No Skin Appearance) -Ulcer Cleansing Rinsed/ Rinsed/ Rinsed/ Irrigated with Irrigated with Irrigated with Saline Saline Saline -Foul Odor after Cleansing No No No -Anesthetic Used 4% Lidocaine 5% Lidocaine 5% Lidocaine Solution Gel Gel WC - Nurse 2 - General Ulcer CM Notes Start: 06/13/21 10:27 Freq: Status: Active Protocol: Activity Type Activity Date Activity User E-Sign Co-Sign Detail Recorded Client Recorded Date Recorded By Document 06/13/21 10:50 [id number] 06/13/21 10:56 Document 06/20/21 15:10 [id number] 06/20/21 15:16 JF Document 06/27/21 14:40 [id number] 06/27/21 14:43 Edit Result 06/27/21 14:40 JF (1) [id number] 06/27/21 14:45 JF (1) 3-right 2nd toe - Time => 14:44 - Correct Patient => Yes - Correct Side, Site, Position => Yes - Correct Procedure => Yes - Procedure Performed => Yes - Type of Procedure => Debridement - Clinical Debridement => Subcutaneous - Tissue Removed => Subcutaneous - Post Debridement (cm) - Length => 0.1 - Post Debridement (cm) - Width => 0.7 - Post Debridement (cm) - Depth => 0.1 - Total Square (Post) (cm) => 0.07 - Area of Debridement (cm) - Length => 0.1 - Area of Debridement (cm) - Width => 0.7 - Total Square (Area) (cm) => 0.07 - Tunneling => No - Undermining/Tunneling => No - Circular Undermining => No - Wound/Ulcer Outcome => Not Healed - Ulcer Cleansing => Rinsed/Irrigated => with Saline - Foul Odor after Cleansing => No - Bioengineered Tissue => No - Bleeding Controlled with => Pressure - Offloading => Yes - Type of Offloading => Surgical Shoe - Treatment Response => Procedure => Tolerated Well - Debridement - Subq, 1st 20sq cm => No 06/13/21 06/20/21 06/27/21 10:50 15:10 14:40 Wound Center Nurse 2 3-right 2nd toe -Time 14:44 -Correct Patient Yes -Correct Side, Site, Position Yes -Correct Procedure Yes -Procedure Performed Yes -Type of Procedure Debridement -Clinical Debridement Subcutaneous -Tissue Removed Subcutaneous -Post Debridement (cm) - Length 0.1 -Post Debridement (cm) - Width 0.7 -Post Debridement (cm) - Depth 0.1 -Total Square (Post) (cm) 0.07 -Area of Debridement (cm) - Length 0.1 -Area of Debridement (cm) - Width 0.7 -Total Square (Area) (cm) 0.07 -Tunneling No -Undermining/Tunneling No -Circular Undermining No -Wound/Ulcer Outcome Not Healed -Ulcer Cleansing Rinsed/ Irrigated with Saline -Foul Odor after Cleansing No -Bioengineered Tissue No -Bleeding Controlled with Pressure -Offloading Yes -Type of Offloading Surgical Shoe -Treatment Response Procedure Tolerated Well -Debridement - Subq, 1st 20sq cm No 2. R great toe Lateral -Time 10:51 15:11 14:40 -Correct Patient Yes Yes Yes -Correct Side, Site, Position Yes Yes Yes -Correct Procedure Yes Yes Yes -Procedure Performed Yes Yes Yes -Type of Procedure Debridement Debridement Debridement -Clinical Debridement Subcutaneous Subcutaneous Subcutaneous -Tissue Removed Subcutaneous Subcutaneous Subcutaneous -Post Debridement (cm) - Length 1.2 1.2 1 -Post Debridement (cm) - Width 0.7 0.8 0.6 -Post Debridement (cm) - Depth 0.2 0.1 0.3 -Total Square (Post) (cm) 0.84 0.96 0.6 -Area of Debridement (cm) - Length 1.2 1.2 1 -Area of Debridement (cm) - Width 0.7 0.8 0.6 -Total Square (Area) (cm) 0.84 0.96 0.6 -Tunneling No No No -Undermining/Tunneling No No No -Circular Undermining No No No -Wound/Ulcer Outcome Not Healed Not Healed Not Healed -Ulcer Cleansing Rinsed/ Rinsed/ Rinsed/ Irrigated with Irrigated with Irrigated with Saline Saline Saline -Foul Odor after Cleansing No No No -Bioengineered Tissue No No No -Bleeding Controlled with Pressure Pressure Pressure -Offloading Yes Yes Yes -Type of Offloading Surgical Shoe Surgical Shoe Surgical Shoe -Treatment Response Procedure Procedure Procedure Tolerated Well Tolerated Well Tolerated Well -Debridement - Subq, 1st 20sq cm No No No 1. R great toe Dorsal -Time 10:51 15:11 14:41 -Correct Patient No Yes Yes -Correct Side, Site, Position No Yes Yes -Correct Procedure No Yes Yes -Procedure Performed No Yes Yes -Type of Procedure Debridement Debridement -Clinical Debridement Subcutaneous Subcutaneous -Tissue Removed Subcutaneous Subcutaneous -Post Debridement (cm) - Length 1.2 0.8 -Post Debridement (cm) - Width 2 1.1 0.5 -Post Debridement (cm) - Depth 0.1 0.1 0.1 -Total Square (Post) (cm) 1.32 0.40 -Area of Debridement (cm) - Length 1.2 0.8 -Area of Debridement (cm) - Width 1.1 0.5 -Total Square (Area) (cm) 1.32 0.40 -Tunneling No No No -Undermining/Tunneling No No No -Circular Undermining No No No -Wound/Ulcer Outcome Not Healed Not Healed Not Healed -Ulcer Cleansing Rinsed/ Rinsed/ Rinsed/ Irrigated with Irrigated with Irrigated with Saline Saline Saline -Foul Odor after Cleansing No No No -Bioengineered Tissue No No No -Bleeding Controlled with Pressure Pressure Pressure -Offloading Yes Yes Yes -Type of Offloading Surgical Shoe Surgical Shoe Surgical Shoe -Treatment Response Procedure Procedure Procedure Tolerated Well Tolerated Well Tolerated Well -Debridement - Subq, 1st 20sq cm Yes Yes Yes Pain Scale: 0-10 Numeric Is Patient Pain Free? Yes Yes Yes WC - Nurse 3 - General Ulcer D/C NN Start: 06/13/21 10:27 Freq: Status: Active Protocol: Activity Type Activity Date Activity User E-Sign Co-Sign Detail Recorded Client Recorded Date Recorded By Document 06/13/21 11:38 RB [id number] 06/13/21 11:40 RB Document 06/20/21 15:31 RB Desktop 06/20/21 15:31 RB Document 06/27/21 15:08 RB [id number] 06/27/21 15:09 RB 06/13/21 06/20/21 06/27/21 11:38 15:31 15:08 Wound Care Nurse 3 3-right 2nd toe -Ulcer Cleansing Rinsed/ Irrigated with Saline -Other Dressing hydrogel -Primary Dressing Covered/Secured with Dry Gauze, Secured with Tape 2. R great toe Lateral -Ulcer Cleansing Rinsed/ Rinsed/ Irrigated with Irrigated with Saline Saline -Other Dressing hydrogel hydrogel hydrogel -Primary Dressing Covered/Secured with Dry Gauze,Dry Dry Gauze, Dry Gauze, Gauze & Roll Secured with Secured with Gauze,Secured Tape Tape with Tape 1. R great toe Dorsal -Ulcer Cleansing Rinsed/ Rinsed/ Irrigated with Irrigated with Saline Saline -Other Dressing hydrogel hydrogel hydrogel -Primary Dressing Covered/Secured with Dry Gauze & Dry Gauze, Dry Gauze, Roll Gauze, Secured with Secured with Secured with Tape Tape Tape Treatment Response Procedure Procedure Procedure Tolerated Well Tolerated Well Tolerated Well Pain Scale: 0-10 Numeric Is Patient Pain Free? Yes Yes WC - Visit Discharge Discharge Condition Stable Stable Stable Ambulatory Status Ambulatory Ambulatory Ambulatory Transportation Private Auto Private Auto Private Auto Medication Reconcilliation completed & No No No provided to patient/care provider Clinical Summary of Care Provided Yes Yes Yes Assessment/Plan Assessment/Plan (1) Ulcer of right foot with necrosis of bone: CODE(S): L97.514 - Non-pressure chronic ulcer of other part of right foot with necrosis of bone (2) Type 2 diabetes mellitus with diabetic polyneuropathy: CODE(S): E11.42 - Type 2 diabetes mellitus with diabetic polyneuropathy (3) Hallux limitus of right foot: CODE(S): M20.5X1 - Other deformities of toe(s) (acquired), right foot (4) Osteomyelitis: CODE(S): M86.9 - Osteomyelitis, unspecified QUALIFIERS: Osteomyelitis type: other acute Osteomyelitis location: foot Laterality: right Qualified Code(s): M86.171 - Other acute osteomyelitis, right ankle and foot (5) Other specified peripheral vascular diseases: CODE(S): I73.89 - Other specified peripheral vascular diseases (6) Delayed wound healing: CODE(S): T14.8XXD - Other injury of unspecified body region, subsequent encounter PLAN: I reviewed and discussed his case this afternoon. He was reassured there is no erythema or purulence to the foot however has continued exposed bone which is consistent with osteomyelitis. Debridement was performed as noted in the clinical panel. His new ulcers noted and I suspect this either occurred due to an unintentional injury or due to cracking from dry skin being exposed outside while doing yard work in the cool temperatures. Dressing change this afternoon: To change dressings daily with Santyl to all sites. Wash: Soap and water Offload: Heel weightbearing with surgical shoe. To use assistive device. I recommend fully offloading the entire foot transitioning to nonweightbearing status with a walker or knee roller. I added a Plastizote liner and a foam offloading pad to take further pressure off of this ulcer site. His surgical shoe was further updated previously by modifying the strap to avoid hallux contact. Vascular: He had previous lower extremity intervention including angioplasty in [place] ([facility]). He relates he did not follow-up as advised. I advised him to follow-up to see if there is additional intervention recommendations available due to his delayed healing. He relates his vascular surgeon is moving and he is interested in following up local. A referral to Dr. Wells was provided and he is scheduled to follow-up in 1 weeks. Host factors: He has uncontrolled diabetes with a self-reported A1c of over 9%. He understands this in combination with his known vascular disease make healing difficult. He is at risk for amputation and he is made this previously clear that he will not proceed forward with this. I recommend nutritional education to optimize healing. I advised him to avoid skipping meals. Advised him to eat a whole food balanced diet that not only focuses on adequate (not excessive) protein but also nutrient dense food intake. He defers veterinary meat inspector referral. Resources were provided as reviewed them. Infection: He is also completing a 6 weeks of oral doxycycline. The Augmentin was discontinued due to intolerance. He was seen by infectious disease specialist today, Dr. Pollock; discussed. He is treated for osteomyelitis and will continue with hyperbaric oxygen therapy. He is currently continuing at [facility]. To return to clinic in 2 weeks. I answered all his questions. Note: [employer] speech recognition finance officer software was used to create portions of this document. Sound-alike and misspelled words, as well as other finance officer errors may be contained in the documentation. He is at risk for losing his toe however the current treatment plan involves limb salvage. 21 minutes was spent on this encounter. This included face to face and non face to face care including preparing for the visit, reviewing the history, performing the exam, counseling and providing education to the patient, family, or caregiver, ordering medications/test/ procedures if indicated as documented, communicating with other healthcare providers, documenting information in the medical record, interpreting / sharing this information when indicated as documented, and care coordination.
== END 2021-07-10 23:59 ==
LOC: WC 14:15
PROVIDERS: PCP Family Medicine; Visit Provider Podiatrist
DX: E11.621 Type 2 diabetes mellitus with foot ulcer (principal); E11.69 Type 2 diabetes mellitus with other specified complication; E11.51 Type 2 diabetes mellitus with diabetic peripheral angiopathy without gangrene; M86.171 Other acute osteomyelitis, right ankle and foot; L97.512 Non-pressure chronic ulcer of other part of right foot with fat layer exposed; E11.42 Type 2 diabetes mellitus with diabetic polyneuropathy; M20.5X1 Other deformities of toe(s) (acquired), right foot
CPT/HCPCS: 11042

== ENCOUNTER 2021-07-18 14:15 | Outpatient (RCR) | payer BC, SELFPAY ==
[2021-07-11 00:13] VITALS: BP 128/74; PULSE 65; RESP 20; TEMP 36.6; BMI 29.6
[2021-07-11 14:16] VITALS: BP 186/92; PULSE 91; RESP 16; TEMP 36.5; BMI 29.6
--- NOTE | 2021-07-11 15:22 | PCM.WC.PN ---
History of Present Illness Date of Service: 07/11/21 Chief Complaint: right great toe ulcer History of Wound: This 61-year-old diabetic male was seen bedside for right chronic great toe ulcer with osteomyelitis. He denies fever, chill, nausea, vomiting. He denies foot pain. I recently saw him in the hospital setting for acute cellulitis. It is noted he has already been through a full session of hyperbaric oxygen therapy at [facility] in the [place] and he has been approved for another course and has been attending. He is taking antibiotics as advised and these were recommended by Dr. Pollock, infectious disease specialist. He denies known side effects or diarrhea. He wears a surgical shoe. He was noted to make his vascular appointment and has this rescheduled for couple weeks. Progress of Wound: Stable Objective Data Objective Data Vital Signs: Vital Signs Temp Pulse Resp BP 97.7 F L 91 16 186/92 H 07/11/21 14:16 07/11/21 14:16 07/11/21 14:16 07/11/21 14:16 Oxygen Delivery Method Room Air Weight: 88.451 kg Body Mass Index (BMI) 29.6 Physical Exam Extremity Extremity Narrative: No calf tenderness Diminished pulses; dp is palpable hair noted to lower ankle level Muscle wasting noted Decreased loaded first metatarsophalangeal joint range of motion is consistent with hallux limitus Skin Skin Narrative: Skin discontinuity to plantar medial right hallux probes to deeper structures including muscle and bone. There is also skin discontinuity to dorsal right hallux adjacent to the proximal lateral nail border is dry with well adhered eschar and some fibrous tissue; stable and decreased. There is serosangenous drainage only. No odor or purulence. There is no erythema to the toe and midfoot. There is no fluctuance, bogginess, or palpable abscess. There is no crepitus with manipulation of the hallux interphalangeal joint noted. healed prior small skin discontinuity to distal second toe. no deep tissue exposure Neuro Neuro Narrative: Epicritic sensation light touch and pain with ulcer debridement noted Debridement Note Debridement Note Post-Debridement Measurements and Additional Note: Post-Debridement Measurements/Treatment JAE - Nurse 1 - General Ulcer Assessment Start: 07/11/21 14:16 Freq: Status: Active Protocol: REHAN Activity Type Activity Date Activity User E-Sign Co-Sign Detail Recorded Client Recorded Date Recorded By Document 07/11/21 14:16 [facility] [id number] 07/11/21 14:24 [facility] 07/11/21 14:16 - Today's Visit Information Type of service Follow-up Visit (Physician/NUTRITIONAL SERVICES DIRECTOR ) Arrival Mode Ambulatory Transfer Assistance None Patient Identification Verified (Name & Yes ) Patient Requires Transmission-Based No Precautions Height and Weight Body Mass Index (BMI) 29.6 BMI Classification Overweight Vital Signs Temperature (97.8 F-99.1 F) 97.7 F L Temperature Source Oral Pulse Rate (60-100) 91 Pulse Location Monitor Respiratory Rate (12-18) 16 Respiratory rate source Observation Oxygen Delivery Method Room Air Blood Pressure (90/60-120/80) 186/92 H Blood Pressure Mean (mm Hg) 123 Source Monitor Position Sitting Blood Pressure Location Right Arm History Since Last Visit- (Skip if this is Patient's initial visit) Have you changed medications since your No last visit? Any new allergies or adverse reactions No Had a fall/change in ADL's that may No increase risk of falls Signs or symptoms of abuse and/or No neglect since last visit Have you been in the hospital since your No last visit? Has dressing in place as prescribed Yes Has compression in place as prescribed N/A Has offloadiing in place as prescribed Yes Experienced any changes in pain level or No management Left Footwear Regular Shoe Right Footwear Surgical Shoe with pressure relief insole Pain Scale: 0-10 Numeric Is Patient Pain Free? Yes - Nurse 1 - General Ulcer Measurement Start: 07/11/21 14:16 Freq: Status: Active Protocol: Activity Type Activity Date Activity User E-Sign Co-Sign Detail Recorded Client Recorded Date Recorded By Document 07/11/21 14:16 [facility] [id number] 07/11/21 14:24 [facility] 07/11/21 14:16 Wound Center Nurse 1 3-right 2nd toe -Combined with other wound No -Current Size (cm) - Length 0.1 -Current Size (cm) - Width 0.1 -Current Size (cm) - Depth 0.2 -Total Square Cm 0.01 -Photo Taken No -Epithelialization None Present -Tunneling No -Undermining/Tunneling No -Circular Undermining No -Exudate Amt None Present -Wound Margin Distinct, Outline Attached -Granulation Amt None Present (0 %) -Slough/Fibrin Yes -Necrosis Amt Large (67-100%) -Necrotic Tissue Type Adherent Slough -Texture (Ashlyn-wound Skin Appearance) Assessed, Scarring -Moisture (Ashlyn-wound Skin Appearance) Assessed,Dry/ Scaly -Color (Ashlyn-wound Skin Appearance) Assessed -Temperature (Ashlyn-wound Skin No Abnormality Appearance) (Pt Warm) -Tenderness on Palpation (Ashlyn-wound No Skin Appearance) -Ulcer Cleansing Rinsed/ Irrigated with Saline -Foul Odor after Cleansing No -Anesthetic Used 5% Lidocaine Gel 2. R great toe Lateral -Combined with other wound No -Current Size (cm) - Length 1.1 -Current Size (cm) - Width 0.7 -Current Size (cm) - Depth 0.4 -Total Square Cm 0.77 -Photo Taken No -Epithelialization None Present -Tunneling No -Undermining/Tunneling No -Circular Undermining No -Exudate Amt Small -Exudate Type Serosanguineous -Wound Margin Distinct, Outline Attached -Granulation Amt None Present (0 %) -Slough/Fibrin Yes -Necrosis Amt Large (67-100%) -Necrotic Tissue Type Adherent Slough -Texture (Ashlyn-wound Skin Appearance) Assessed, Scarring -Moisture (Ashlyn-wound Skin Appearance) Assessed -Color (Ashlyn-wound Skin Appearance) Assessed -Temperature (Ashlyn-wound Skin No Abnormality Appearance) (Pt Warm) -Tenderness on Palpation (Ashlyn-wound No Skin Appearance) -Ulcer Cleansing Rinsed/ Irrigated with Saline -Foul Odor after Cleansing No -Anesthetic Used 5% Lidocaine Gel 1. R great toe Dorsal -Combined with other wound No -Current Size (cm) - Length 1.6 -Current Size (cm) - Width 2.4 -Current Size (cm) - Depth 0.2 -Total Square Cm 3.84 -Photo Taken No -Epithelialization None Present -Tunneling No -Undermining/Tunneling No -Circular Undermining No -Exudate Amt Small -Exudate Type Serosanguineous -Wound Margin Distinct, Outline Attached -Granulation Amt None Present (0 %) -Slough/Fibrin Yes -Necrosis Amt Large (67-100%) -Necrotic Tissue Type Adherent Slough -Texture (Ashlyn-wound Skin Appearance) Assessed -Moisture (Ashlyn-wound Skin Appearance) Assessed, Maceration -Color (Ashlyn-wound Skin Appearance) Assessed -Temperature (Ashlyn-wound Skin No Abnormality Appearance) (Pt Warm) -Tenderness on Palpation (Ashlyn-wound No Skin Appearance) -Ulcer Cleansing Rinsed/ Irrigated with Saline -Foul Odor after Cleansing No -Anesthetic Used 5% Lidocaine Gel WC - Nurse 2 - General Ulcer CM Notes Start: 07/11/21 14:16 Freq: Status: Active Protocol: Activity Type Activity Date Activity User E-Sign Co-Sign Detail Recorded Client Recorded Date Recorded By Document 07/11/21 14:29 [id number] 07/11/21 14:34 07/11/21 14:29 Wound Center Nurse 2 3-right 2nd toe -Time 14:32 -Correct Patient Yes -Correct Side, Site, Position Yes -Correct Procedure Yes -Procedure Performed Yes -Type of Procedure Debridement -Clinical Debridement Subcutaneous -Tissue Removed Subcutaneous -Post Debridement (cm) - Length 0.2 -Post Debridement (cm) - Width 0.1 -Post Debridement (cm) - Depth 0.1 -Total Square (Post) (cm) 0.02 -Area of Debridement (cm) - Length 0.2 -Area of Debridement (cm) - Width 0.1 -Total Square (Area) (cm) 0.02 -Tunneling No -Undermining/Tunneling No -Circular Undermining No -Wound/Ulcer Outcome Not Healed -Ulcer Cleansing Rinsed/ Irrigated with Saline -Foul Odor after Cleansing No -Bioengineered Tissue No -Bleeding Controlled with Pressure -Offloading Yes -Type of Offloading Surgical Shoe -Treatment Response Procedure Tolerated Well -Debridement - Subq, 1st 20sq cm No 2. R great toe Lateral -Time 14:30 -Correct Patient Yes -Correct Side, Site, Position Yes -Correct Procedure Yes -Procedure Performed Yes -Type of Procedure Debridement -Clinical Debridement Subcutaneous -Tissue Removed Subcutaneous -Post Debridement (cm) - Length 1.2 -Post Debridement (cm) - Width 0.8 -Post Debridement (cm) - Depth 0.4 -Total Square (Post) (cm) 0.96 -Area of Debridement (cm) - Length 1.2 -Area of Debridement (cm) - Width 0.8 -Total Square (Area) (cm) 0.96 -Tunneling No -Undermining/Tunneling No -Circular Undermining No -Wound/Ulcer Outcome Not Healed -Ulcer Cleansing Rinsed/ Irrigated with Saline -Foul Odor after Cleansing No -Bioengineered Tissue No -Bleeding Controlled with Pressure -Offloading Yes -Type of Offloading Surgical Shoe -Treatment Response Procedure Tolerated Well -Debridement - Subq, 1st 20sq cm No 1. R great toe Dorsal -Time 14:33 -Correct Patient Yes -Correct Side, Site, Position Yes -Correct Procedure Yes -Procedure Performed Yes -Type of Procedure Debridement -Clinical Debridement Subcutaneous -Tissue Removed Subcutaneous -Post Debridement (cm) - Length 1.6 -Post Debridement (cm) - Width 2.5 -Post Debridement (cm) - Depth 0.2 -Total Square (Post) (cm) 4.00 -Area of Debridement (cm) - Length 1.6 -Area of Debridement (cm) - Width 2.5 -Total Square (Area) (cm) 4.00 -Tunneling No -Undermining/Tunneling No -Circular Undermining No -Wound/Ulcer Outcome Not Healed -Ulcer Cleansing Rinsed/ Irrigated with Saline -Foul Odor after Cleansing No -Bioengineered Tissue No -Bleeding Controlled with Pressure -Offloading Yes -Type of Offloading Surgical Shoe -Treatment Response Procedure Tolerated Well -Debridement - Subq, 1st 20sq cm Yes Pain Scale: 0-10 Numeric Is Patient Pain Free? Yes WC - Nurse 3 - General Ulcer D/C NN Start: 07/11/21 14:16 Freq: Status: Active Protocol: Activity Type Activity Date Activity User E-Sign Co-Sign Detail Recorded Client Recorded Date Recorded By Document 07/11/21 14:42 [facility] [id number] 07/11/21 14:43 [facility] 07/11/21 14:42 Wound Care Nurse 3 3-right 2nd toe -Ulcer Cleansing Rinsed/ Irrigated with Saline -Foul Odor after Cleansing No -Primary Dressing Applied Other -Other Dressing hydrogel -Primary Dressing Covered/Secured with Dry Gauze, Secured with Tape 2. R great toe Lateral -Ulcer Cleansing Rinsed/ Irrigated with Saline -Foul Odor after Cleansing No -Primary Dressing Applied Other -Other Dressing hydrogel -Primary Dressing Covered/Secured with Dry Gauze, Secured with Tape 1. R great toe Dorsal -Ulcer Cleansing Rinsed/ Irrigated with Saline -Foul Odor after Cleansing No -Primary Dressing Applied Other -Other Dressing hydrogel -Primary Dressing Covered/Secured with Dry Gauze, Secured with Tape Treatment Response Procedure Tolerated Well Pain Scale: 0-10 Numeric Is Patient Pain Free? Yes WC - Visit Discharge Discharge Condition Stable Ambulatory Status Ambulatory Transportation Private Auto Assessment/Plan Assessment/Plan (1) Ulcer of right foot with necrosis of bone: CODE(S): L97.514 - Non-pressure chronic ulcer of other part of right foot with necrosis of bone (2) Type 2 diabetes mellitus with diabetic polyneuropathy: CODE(S): E11.42 - Type 2 diabetes mellitus with diabetic polyneuropathy (3) Hallux limitus of right foot: CODE(S): M20.5X1 - Other deformities of toe(s) (acquired), right foot (4) Osteomyelitis: CODE(S): M86.9 - Osteomyelitis, unspecified QUALIFIERS: Osteomyelitis type: other acute Osteomyelitis location: foot Laterality: right Qualified Code(s): M86.171 - Other acute osteomyelitis, right ankle and foot (5) Other specified peripheral vascular diseases: CODE(S): I73.89 - Other specified peripheral vascular diseases (6) Delayed wound healing: CODE(S): T14.8XXD - Other injury of unspecified body region, subsequent encounter PLAN: I reviewed and discussed his case this afternoon. He was reassured there is no erythema or purulence to the foot however has continued exposed bone which is consistent with osteomyelitis. Debridement was performed as noted in the clinical panel. His new ulcers noted and I suspect this either occurred due to an unintentional injury or due to cracking from dry skin being exposed outside while doing yard work in the cool temperatures. Dressing change this afternoon: To change dressings daily with Santyl to all sites. Wash: Soap and water Offload: Heel weightbearing with surgical shoe. To use assistive device. I recommend fully offloading the entire foot transitioning to nonweightbearing status with a walker or knee roller. I added a Plastizote liner and a foam offloading pad to take further pressure off of this ulcer site previously. His surgical shoe was further updated previously by modifying the strap to avoid hallux contact. Vascular: He had previous lower extremity intervention including angioplasty in [place] ([facility]). He relates he did not follow-up as advised. I advised him to follow-up to see if there is additional intervention recommendations available due to his delayed healing. He relates his vascular surgeon is moving and he is interested in following up local. A referral to Dr. Wells was provided and had to reschedule this. Host factors: He has uncontrolled diabetes with a self-reported A1c of over 9%. He understands this in combination with his known vascular disease make healing difficult. He is at risk for amputation and he is made this previously clear that he will not proceed forward with this. I recommend nutritional education to optimize healing. I advised him to avoid skipping meals. Advised him to eat a whole food balanced diet that not only focuses on adequate (not excessive) protein but also nutrient dense food intake. 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 Resources were provided as reviewed them. Infection: He is also completing a 6 weeks of oral doxycycline. The Augmentin was discontinued due to intolerance. He was seen by infectious disease specialist today, Dr. Pollock; discussed. He is treated for osteomyelitis and will continue with hyperbaric oxygen therapy. He is currently continuing at [facility]. To return to clinic in 1 to 2 weeks. I answered all his questions. Note: [employer] speech recognition legal job titles software was used to create portions of this document. Sound-alike and misspelled words, as well as other legal job titles errors may be contained in the documentation. He is at risk for losing his toe however the current treatment plan involves limb salvage.
[2021-07-18 14:23] VITALS: BP 165/83; PULSE 89; RESP 18; TEMP 37.1; BMI 29.6
--- NOTE | 2021-07-18 15:09 | PCM.WC.PN ---
History of Present Illness Date of Service: 07/18/21 Chief Complaint: right great toe ulcer History of Wound: This 61-year-old diabetic male was seen bedside for right chronic great toe ulcer with osteomyelitis. He denies fever, chill, nausea, vomiting. He denies foot pain. I recently saw him in the hospital setting for acute cellulitis. It is noted he has already been through a full session of hyperbaric oxygen therapy at [facility] in the [place] and he has been approved for another course and has been attending. He is taking antibiotics as advised and these were recommended by Dr. Pollock, infectious disease specialist. He denies known side effects or diarrhea. He wears a surgical shoe. He was noted to make his vascular appointment and has this rescheduled for couple weeks. He thinks he has some burning with Santyl application and asked if there is a different dressing option. Progress of Wound: Stable Objective Data Objective Data Vital Signs: Vital Signs Temp Pulse Resp BP 98.7 F 89 18 165/83 H 07/18/21 14:23 07/18/21 14:23 07/18/21 14:23 07/18/21 14:23 Oxygen Delivery Method Room Air Weight: 88.451 kg Body Mass Index (BMI) 29.6 Physical Exam Extremity Extremity Narrative: No calf tenderness Diminished pulses; dp is palpable hair noted to lower ankle level Muscle wasting noted Decreased loaded first metatarsophalangeal joint range of motion is consistent with hallux limitus Skin Skin Narrative: Skin discontinuity to plantar medial right hallux probes to deeper structures including muscle and bone. There is also skin discontinuity to dorsal right hallux adjacent to the proximal lateral nail border is dry with well adhered eschar and some fibrous tissue; stable and decreased. There is serosangenous drainage only. No odor or purulence. There is no erythema to the toe and midfoot. There is no fluctuance, bogginess, or palpable abscess. There is no crepitus with manipulation of the hallux interphalangeal joint noted. Skin discontinuity to distal second toe with granular base and superficial nature. No deep tissue exposure Neuro Neuro Narrative: Epicritic sensation light touch and pain with ulcer debridement noted Debridement Note Debridement Note Wound debrided: distal second toe, hallux medial and dorsal Wound Grade/Stage: 1,3,1 Type of Debridement: Excisional debridement Anesthesia Used: 4% Lidocaine Solution Depth: in the subcutaneous layer Percentage of wound debrided: 100 Instrument Used: #15 blade Tissue Removed: fibrous, devitalized subcutaneous, biofilm, slough Severity: Fat Layer Exposed Amount of bleeding with debridement: Mild Bleeding Controlled with: Pressure Patient tolerated procedure: Patient tolerated procedure well Post-Debridement Measurements and Additional Note: Post-Debridement Measurements/Treatment JAE - Nurse 1 - General Ulcer Assessment Start: 07/11/21 14:16 Freq: Status: Active Protocol: REHAN Activity Type Activity Date Activity User E-Sign Co-Sign Detail Recorded Client Recorded Date Recorded By Document 07/11/21 14:16 BMF [id number] 07/11/21 14:24 BMF Document 07/18/21 14:23 DL [id number] 07/18/21 14:29 DL 07/11/21 07/18/21 14:16 14:23 JAE - Today's Visit Information Type of service Follow-up Visit Follow-up Visit (Physician/HIGH SCHOOL SOCIAL STUDIES TEACHER (Physician/HIGH SCHOOL SOCIAL STUDIES TEACHER ) ) Arrival Mode Ambulatory Ambulatory Transfer Assistance None None Patient Identification Verified (Name & Yes Yes ) Patient Requires Transmission-Based No Precautions Height and Weight Body Mass Index (BMI) 29.6 29.6 BMI Classification Overweight Overweight Vital Signs Temperature (97.8 F-99.1 F) 97.7 F L 98.7 F Temperature Source Oral Temporal Pulse Rate (60-100) 91 89 Pulse Location Monitor Monitor Respiratory Rate (12-18) 16 18 Respiratory rate source Observation Observation Oxygen Delivery Method Room Air Blood Pressure (90/60-120/80) 186/92 H 165/83 H Blood Pressure Mean (mm Hg) 123 110 Source Monitor Monitor Position Sitting Semi-Fowlers Blood Pressure Location Right Arm History Since Last Visit- (Skip if this is Patient's initial visit) Have you changed medications since your No No last visit? Any new allergies or adverse reactions No No Had a fall/change in ADL's that may No No increase risk of falls Signs or symptoms of abuse and/or No No neglect since last visit Have you been in the hospital since your No No last visit? Has dressing in place as prescribed Yes Yes Has compression in place as prescribed N/A No Has offloadiing in place as prescribed Yes No Experienced any changes in pain level or No No management Left Footwear Regular Shoe Right Footwear Surgical Shoe with pressure relief insole Pain Scale: 0-10 Numeric Is Patient Pain Free? Yes Yes WC - Nurse 1 - General Ulcer Measurement Start: 07/11/21 14:16 Freq: Status: Active Protocol: Activity Type Activity Date Activity User E-Sign Co-Sign Detail Recorded Client Recorded Date Recorded By Document 07/11/21 14:16 BMF [id number] 07/11/21 14:24 BMF Document 07/18/21 14:23 DL [id number] 07/18/21 14:29 DL 07/11/21 07/18/21 14:16 14:23 Wound Center Nurse 1 3-right 2nd toe -Combined with other wound No No -Current Size (cm) - Length 0.1 0.3 -Current Size (cm) - Width 0.1 0.2 -Current Size (cm) - Depth 0.2 0.2 -Total Square Cm 0.01 0.06 -Photo Taken No -Epithelialization None Present -Tunneling No No -Undermining/Tunneling No No -Circular Undermining No -Exudate Amt None Present Medium -Exudate Type Serosanguineous -Wound Margin Distinct, Distinct, Outline Outline Attached Attached -Granulation Amt None Present (0 Small (1-33%) %) -Granulation Quality [place] -Slough/Fibrin Yes Yes -Necrosis Amt Large (67-100%) Large (67-100%) -Necrotic Tissue Type Adherent Slough Adherent Slough -Structure Exposed N/A -Texture (Ashlyn-wound Skin Appearance) Assessed, Assessed Scarring -Moisture (Ashlyn-wound Skin Appearance) Assessed,Dry/ Assessed Scaly -Color (Ashlyn-wound Skin Appearance) Assessed Erythema -Temperature (Ashlyn-wound Skin No Abnormality No Abnormality Appearance) (Pt Warm) (Pt Warm) -Tenderness on Palpation (Ashlyn-wound No No Skin Appearance) -Ulcer Cleansing Rinsed/ Wound Cleanser Irrigated with Saline -Foul Odor after Cleansing No No -Anesthetic Used 5% Lidocaine 5% Lidocaine Gel Gel 2. R great toe Lateral -Combined with other wound No No -Current Size (cm) - Length 1.1 1.2 -Current Size (cm) - Width 0.7 0.9 -Current Size (cm) - Depth 0.4 0.3 -Total Square Cm 0.77 1.08 -Photo Taken No -Epithelialization None Present -Tunneling No No -Undermining/Tunneling No No -Circular Undermining No No -Exudate Amt Small Medium -Exudate Type Serosanguineous Serosanguineous -Wound Margin Distinct, Distinct, Outline Outline Attached Attached -Granulation Amt None Present (0 Small (1-33%) %) -Granulation Quality [place] -Slough/Fibrin Yes Yes -Necrosis Amt Large (67-100%) Large (67-100%) -Necrotic Tissue Type Adherent Slough Adherent Slough -Structure Exposed N/A -Texture (Ashlyn-wound Skin Appearance) Assessed, Assessed Scarring -Moisture (Ashlyn-wound Skin Appearance) Assessed Assessed -Color (Ashlyn-wound Skin Appearance) Assessed Erythema -Temperature (Ashlyn-wound Skin No Abnormality No Abnormality Appearance) (Pt Warm) (Pt Warm) -Tenderness on Palpation (Ashlyn-wound No No Skin Appearance) -Ulcer Cleansing Rinsed/ Wound Cleanser Irrigated with Saline -Foul Odor after Cleansing No No -Anesthetic Used 5% Lidocaine 5% Lidocaine Gel Gel 1. R great toe Dorsal -Combined with other wound No No -Current Size (cm) - Length 1.6 1.7 -Current Size (cm) - Width 2.4 1.6 -Current Size (cm) - Depth 0.2 0.3 -Total Square Cm 3.84 2.72 -Photo Taken No -Epithelialization None Present -Tunneling No No -Undermining/Tunneling No No -Circular Undermining No No -Exudate Amt Small Medium -Exudate Type Serosanguineous Serosanguineous -Wound Margin Distinct, Distinct, Outline Outline Attached Attached -Granulation Amt None Present (0 Small (1-33%) %) -Granulation Quality [place] -Slough/Fibrin Yes Yes -Necrosis Amt Large (67-100%) Large (67-100%) -Necrotic Tissue Type Adherent Slough Adherent Slough -Structure Exposed N/A -Texture (Ashlyn-wound Skin Appearance) Assessed Assessed -Moisture (Ashlyn-wound Skin Appearance) Assessed, Assessed Maceration -Color (Ashlyn-wound Skin Appearance) Assessed Erythema -Temperature (Ashlyn-wound Skin No Abnormality No Abnormality Appearance) (Pt Warm) (Pt Warm) -Tenderness on Palpation (Ashlyn-wound No No Skin Appearance) -Ulcer Cleansing Rinsed/ Wound Cleanser Irrigated with Saline -Foul Odor after Cleansing No No -Anesthetic Used 5% Lidocaine 5% Lidocaine Gel Gel WC - Nurse 2 - General Ulcer CM Notes Start: 07/11/21 14:16 Freq: Status: Active Protocol: Activity Type Activity Date Activity User E-Sign Co-Sign Detail Recorded Client Recorded Date Recorded By Document 07/11/21 14:29 [id number] 07/11/21 14:34 Document 07/18/21 14:43 [id number] 07/18/21 14:49 07/11/21 07/18/21 14:29 14:43 Wound Center Nurse 2 3-right 2nd toe -Time 14:32 14:44 -Correct Patient Yes Yes -Correct Side, Site, Position Yes Yes -Correct Procedure Yes Yes -Procedure Performed Yes Yes -Type of Procedure Debridement Debridement -Clinical Debridement Subcutaneous Subcutaneous -Tissue Removed Subcutaneous Subcutaneous -Post Debridement (cm) - Length 0.2 0.7 -Post Debridement (cm) - Width 0.1 0.2 -Post Debridement (cm) - Depth 0.1 0.1 -Total Square (Post) (cm) 0.02 0.14 -Area of Debridement (cm) - Length 0.2 0.7 -Area of Debridement (cm) - Width 0.1 0.2 -Total Square (Area) (cm) 0.02 0.14 -Tunneling No No -Undermining/Tunneling No No -Circular Undermining No No -Wound/Ulcer Outcome Not Healed Not Healed -Ulcer Cleansing Rinsed/ Rinsed/ Irrigated with Irrigated with Saline Saline -Foul Odor after Cleansing No No -Bioengineered Tissue No No -Bleeding Controlled with Pressure Pressure -Offloading Yes Yes -Type of Offloading Surgical Shoe Surgical Shoe -Treatment Response Procedure Procedure Tolerated Well Tolerated Well -Debridement - Subq, 1st 20sq cm No No 2. R great toe Lateral -Time 14:30 14:44 -Correct Patient Yes Yes -Correct Side, Site, Position Yes Yes -Correct Procedure Yes Yes -Procedure Performed Yes Yes -Type of Procedure Debridement Debridement -Clinical Debridement Subcutaneous Subcutaneous -Tissue Removed Subcutaneous Subcutaneous -Post Debridement (cm) - Length 1.2 1.3 -Post Debridement (cm) - Width 0.8 0.9 -Post Debridement (cm) - Depth 0.4 0.3 -Total Square (Post) (cm) 0.96 1.17 -Area of Debridement (cm) - Length 1.2 1.3 -Area of Debridement (cm) - Width 0.8 0.9 -Total Square (Area) (cm) 0.96 1.17 -Tunneling No No -Undermining/Tunneling No No -Circular Undermining No No -Wound/Ulcer Outcome Not Healed Not Healed -Ulcer Cleansing Rinsed/ Rinsed/ Irrigated with Irrigated with Saline Saline -Foul Odor after Cleansing No No -Bioengineered Tissue No No -Bleeding Controlled with Pressure Pressure -Offloading Yes Yes -Type of Offloading Surgical Shoe Surgical Shoe -Treatment Response Procedure Procedure Tolerated Well Tolerated Well -Debridement - Subq, 1st 20sq cm No No 1. R great toe Dorsal -Time 14:33 14:45 -Correct Patient Yes Yes -Correct Side, Site, Position Yes Yes -Correct Procedure Yes Yes -Procedure Performed Yes Yes -Type of Procedure Debridement Debridement -Clinical Debridement Subcutaneous Subcutaneous -Tissue Removed Subcutaneous Subcutaneous -Post Debridement (cm) - Length 1.6 1.7 -Post Debridement (cm) - Width 2.5 1.9 -Post Debridement (cm) - Depth 0.2 0.2 -Total Square (Post) (cm) 4.00 3.23 -Area of Debridement (cm) - Length 1.6 1.7 -Area of Debridement (cm) - Width 2.5 1.9 -Total Square (Area) (cm) 4.00 3.23 -Tunneling No No -Undermining/Tunneling No No -Circular Undermining No No -Wound/Ulcer Outcome Not Healed Not Healed -Ulcer Cleansing Rinsed/ Rinsed/ Irrigated with Irrigated with Saline Saline -Foul Odor after Cleansing No No -Bioengineered Tissue No No -Bleeding Controlled with Pressure Pressure -Offloading Yes Yes -Type of Offloading Surgical Shoe Surgical Shoe -Treatment Response Procedure Procedure Tolerated Well Tolerated Well -Debridement - Subq, 1st 20sq cm Yes Yes Pain Scale: 0-10 Numeric Is Patient Pain Free? Yes Yes WC - Nurse 3 - General Ulcer D/C NN Start: 07/11/21 14:16 Freq: Status: Active Protocol: Activity Type Activity Date Activity User E-Sign Co-Sign Detail Recorded Client Recorded Date Recorded By Document 07/11/21 14:42 BMF [id number] 07/11/21 14:43 [facility] 07/11/21 14:42 Wound Care Nurse 3 3-right 2nd toe -Ulcer Cleansing Rinsed/ Irrigated with Saline -Foul Odor after Cleansing No -Primary Dressing Applied Other -Other Dressing hydrogel -Primary Dressing Covered/Secured with Dry Gauze, Secured with Tape 2. R great toe Lateral -Ulcer Cleansing Rinsed/ Irrigated with Saline -Foul Odor after Cleansing No -Primary Dressing Applied Other -Other Dressing hydrogel -Primary Dressing Covered/Secured with Dry Gauze, Secured with Tape 1. R great toe Dorsal -Ulcer Cleansing Rinsed/ Irrigated with Saline -Foul Odor after Cleansing No -Primary Dressing Applied Other -Other Dressing hydrogel -Primary Dressing Covered/Secured with Dry Gauze, Secured with Tape Treatment Response Procedure Tolerated Well Pain Scale: 0-10 Numeric Is Patient Pain Free? Yes WC - Visit Discharge Discharge Condition Stable Ambulatory Status Ambulatory Transportation Private Auto Assessment/Plan Assessment/Plan (1) Ulcer of right foot with necrosis of bone: CODE(S): L97.514 - Non-pressure chronic ulcer of other part of right foot with necrosis of bone (2) Type 2 diabetes mellitus with diabetic polyneuropathy: CODE(S): E11.42 - Type 2 diabetes mellitus with diabetic polyneuropathy (3) Hallux limitus of right foot: CODE(S): M20.5X1 - Other deformities of toe(s) (acquired), right foot (4) Osteomyelitis: CODE(S): M86.9 - Osteomyelitis, unspecified QUALIFIERS: Osteomyelitis type: other acute Osteomyelitis location: foot Laterality: right Qualified Code(s): M86.171 - Other acute osteomyelitis, right ankle and foot (5) Other specified peripheral vascular diseases: CODE(S): I73.89 - Other specified peripheral vascular diseases (6) Delayed wound healing: CODE(S): T14.8XXD - Other injury of unspecified body region, subsequent encounter (7) 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 He was reassured there is no erythema or purulence to the foot however has continued exposed bone which is consistent with osteomyelitis. Debridement was performed as noted in the clinical panel. His new ulcers noted and I suspect this either occurred due to an unintentional injury or due to cracking from dry skin being exposed outside while doing yard work in the cool temperatures. Dressing change this afternoon: To change dressings daily with Santyl to all sites. Hydrogel was dispensed and he was advised to do this every other day instead of Santyl to see if this reduces the burning sensation. Wash: Soap and water Offload: Heel weightbearing with surgical shoe. To use assistive device. I recommend fully offloading the entire foot transitioning to nonweightbearing status with a walker or knee roller. I added a Plastizote liner and a foam offloading pad to take further pressure off of this ulcer site previously. His surgical shoe was further updated previously by modifying the strap to avoid hallux contact. Vascular: He had previous lower extremity intervention including angioplasty in [place] ([facility]). He relates he did not follow-up as advised. I advised him to follow-up to see if there is additional intervention recommendations available due to his delayed healing. He relates his vascular surgeon is moving and he is interested in following up local. A referral to Dr. Wells was provided and had to reschedule this. Host factors: He has uncontrolled diabetes with a self-reported A1c of over 9%. He understands this in combination with his known vascular disease make healing difficult. He is at risk for amputation and he is made this previously clear that he will not proceed forward with this. I recommend nutritional education to optimize healing. I advised him to avoid skipping meals. Advised him to eat a whole food balanced diet that not only focuses on adequate (not excessive) protein but also nutrient dense food intake. He defers home office claim specialist referral. Resources were provided as reviewed them. This was discussed again today. Infection: He is also completing a 6 weeks of oral doxycycline. The Augmentin was discontinued due to intolerance. He was seen by infectious disease specialist today, Dr. Pollock; discussed. He is treated for osteomyelitis and will continue with hyperbaric oxygen therapy. He is currently continuing at [facility]. To return to clinic in 2-3 weeks. I answered all his questions. Note: [employer] speech recognition package worker software was used to create portions of this document. Sound-alike and misspelled words, as well as other package worker errors may be contained in the documentation. 11 minutes was spent on this encounter. This included face to face and non face to face care including preparing for the visit, reviewing the history, performing the exam, counseling and providing education to the patient, family, or caregiver, ordering medications/test/ procedures if indicated as documented, communicating with other healthcare providers, documenting information in the medical record, interpreting / sharing this information when indicated as documented, and care coordination. He is at risk for losing his toe however the current treatment plan involves limb salvage.
== END 2021-07-25 14:02 | disposition home or self-care (01) ==
LOC: WC 14:15
PROVIDERS: PCP Family Medicine; Visit Provider Podiatrist
DX: E11.621 Type 2 diabetes mellitus with foot ulcer (principal); E11.69 Type 2 diabetes mellitus with other specified complication; M86.171 Other acute osteomyelitis, right ankle and foot; E11.42 Type 2 diabetes mellitus with diabetic polyneuropathy; M20.5X1 Other deformities of toe(s) (acquired), right foot; L97.512 Non-pressure chronic ulcer of other part of right foot with fat layer exposed
CPT/HCPCS: 11042

== ENCOUNTER 2021-07-25 06:20 | Day surgery (SDC) | payer BC, SELFPAY ==
[2021-07-10 09:38] VITALS: BMI 30.4
[2021-07-25 06:43] LABS: Hemoglobin 12.2 g/dL (13.0-16.5); Mean Corp Hgb Conc 33.9 g/dL (32-36); Mean Corpuscular Hgb 27.8 pg (27.0-32.0); Mean Platelet Vol. 10.4 fl (6.2-12.0); Platelet Count 224 K/mm3 (150-450); RBC Distribution Width CV 13.2 % (11.6-14.6); RBC Distribution Width SD 39.4 fl (35.1-43.9); Red Blood Count 4.39 M/mm3 (4.6-6.2); White Blood Count 7.3 K/mm3 (4.4-11.0)
[2021-07-25 06:50] LABS: BUN 13 mg/dL (7-18); Calcium,Total 9.3 mg/dL (8.5-10.1); Chloride 105 mmol/L (98-107); EST Glomerular Filtration Rate 59 mL/min (>60); Est Glom Filt Rate - Afr Amer 72 mL/min (>60); Glucose 274 mg/dL (74-106); Sodium Level 138 mmol/L (136-145)
--- NOTE | 2021-07-25 08:29 | OP.PCM_ITS ---
Problems Associated Problem List Diagnoses (1) PAD (peripheral artery disease): Report of Operation Date of Procedure: 07/25/21 Pre-Operative Diagnosis: PAD with nonhealing ulcer Post-Operative Diagnosis: Same Surgery/Procedure Performed:: 1. Ultrasound-guided access retrograde left common femoral artery. 2. Right lower extremity angiogram catheter placed into the third order anterior tibial artery. 3. Balloon angioplasty of the dorsalis pedis to the distal anterior tibial artery with a 2 x 220 balloon. 4. Closure with Mynx Surgeon: Adrien Wells Type of Anesthesia: IV Sedation Description of Procedure: Patient brought to the Handle And Vent Machine Operator. Underwent appropriate amount consent. Underwent sedation. Prepped and draped in a s terile fashion. We did ultrasound-guided access retrograde left common femoral artery. Put a Glidewire up in a 5 [place] sheath. We got up and over the bifurcation. Gave 5000 units of heparin. Did an angiogram from the iliac artery. This showed the common femoral artery, the profunda, the femoral widely patent. We then imaged down the legs showing the femoral through the popliteal artery was patent. We then imaged below the knee and it showed the peroneal artery the time was the main runoff with some mild areas of stenosis but good flow all the way to the ankle. Posterior tibial artery was occluded throughout and had good collateral filling distally from the peroneal artery. Anterior tibial artery is patent proximally but a severe stenosis of the distal anterior tibial artery into the dorsalis pedis. We brought in a longer 5 [place] sheath. Switched out to a 014 wire that was all the way through the anterior tibial artery into the dorsalis pedis. We then brought in a 2 mm balloon and balloon from the dorsalis pedis up through the distal anterior tibial artery for over 3- 1/2 minutes. We did remove the wire injected some nitro into the distal dorsalis pedis branches that had some spasm. We then removed out the balloon and did a completion angios showed much improved with now quicker flow going through the anterior tibial artery than the peroneal. Good filling out through the arch. We then removed out the sheath put a shorter sheath deployed a minx with good hemostasis. Brought to recovery stable condition. Sedation: This 61-year-old gentleman underwent moderate sedation given by Dr. Adrien Wells. He was monitored EKG blood pressure and pulse ox for over the 30 minutes of the procedure. See the EMR for the complete record. Complications None
== END 2021-07-25 12:45 | disposition home or self-care (01) ==
LOC: CLSP 06:22
PROVIDERS: PCP Family Medicine; Referring Provider Surgery Vascular Surgery; Visit Provider Surgery Vascular Surgery
DX: I70.213 Atherosclerosis of native arteries of extremities with intermittent claudication, bilateral legs (principal); I77.1 Stricture of artery; E11.621 Type 2 diabetes mellitus with foot ulcer; L97.519 Non-pressure chronic ulcer of other part of right foot with unspecified severity; I11.9 Hypertensive heart disease without heart failure; I25.2 Old myocardial infarction; E78.00 Pure hypercholesterolemia, unspecified; J45.909 Unspecified asthma, uncomplicated; F32.A Depression, unspecified; Z79.84 Long term (current) use of oral hypoglycemic drugs; Z79.82 Long term (current) use of aspirin; Z79.02 Long term (current) use of antithrombotics/antiplatelets; Z79.899 Other long term (current) drug therapy
CPT/HCPCS: 36245; 36415; 37228; 75710; 76937; 80069; 85027; 99152; 99153; C1760; J7040; Q9967; C1725; C1769; C1887; C1894

== ENCOUNTER 2021-09-11 11:31 | Outpatient (CLI) | payer BC, SELFPAY ==
[2021-09-11 13:16] LABS: Erythrocyte Sedimentation Rate 28 mm/hr (0-20)
[2021-09-11 13:20] LABS: Absolute Lymphocyte Count 1.41 X10^3/uL (0.83-4.51); Absolute Neutrophil Count 8.2 X10^3/uL (2.0-7.7); Basophil# 0.03 X10^3/uL; Basophil% 0.3 % (0-1); Eosinophil# 0.19 X10^3/uL; Eosinophils% 1.8 % (0-5); Hematocrit 36.7 % (40-54); Hemoglobin 12.5 g/dL (13.0-16.5); Lymphocyte # 1.41 X10^3/ul (0.83-4.51); Lymphocyte % 13.3 % (19-41); Mean Corp Hgb Conc 34.1 g/dL (32-36); Mean Corpuscular Hgb 27.2 pg (27.0-32.0); Mean Corpuscular Volume 79.8 fL (80-94); Mean Platelet Vol. 9.6 fl (6.2-12.0); Monocyte# 0.67 X10^3/uL; Monocyte% 6.3 % (0-10); NRBC Flagged by Analyzer 0 % (0-5); Neutrophil # 8.21 X10^3/uL (2.7-7.7); Neutrophil % 77.6 % (47-70); Platelet Count 284 K/mm3 (150-450); RBC Distribution Width CV 12.4 % (11.6-14.6); RBC Distribution Width SD 35.6 fl (35.1-43.9); White Blood Count 10.6 K/mm3 (4.4-11.0)
[2021-09-11 13:45] LABS: ALB/GLOB Ratio 0.9 RATIO (0.9-2.4); AST(SGOT) 39 U/L (15-37); Alanine Aminotransfer ALT/SGPT 53 U/L (16-61); Albumin, Serum 3.8 g/dL (3.2-5.0); Alkaline Phosphatase 110 U/L (45-117); Anion Gap 6 (5-15); BUN 16 mg/dL (7-18); BUN/Creat Ratio 11.2 RATIO (10-20); Calcium,Total 9.6 mg/dL (8.5-10.1); Chloride 103 mmol/L (98-107); Creatinine, Serum 1.43 mg/dL (0.70-1.30); EST Glomerular Filtration Rate 53 mL/min (>60); Est Glom Filt Rate - Afr Amer 64 mL/min (>60); Globulin 4.4 g/dL (2.2-4.2); Glucose 237 mg/dL (74-106); Potassium 4.3 mmol/L (3.5-5.1); Protein, Total 8.2 g/dL (6.4-8.2); Sodium Level 136 mmol/L (136-145)
[2021-09-11 18:08] LABS: M R Staph aureus DNA By PCR Negative (Negative); Probe Check PASS; Specimen Processing Control PASS; Staph aureus DNA By PCR NEGATIVE (Negative)
== END 2021-09-11 23:59 | disposition short-term general hospital (02) ==
PROVIDERS: PCP Family Medicine; Referring Provider Podiatrist; Visit Provider Podiatrist
DX: L03.115 Cellulitis of right lower limb (principal)
CPT/HCPCS: 36415; 80053; 85025; 85652; 86140; 87070; 87075; 87077; 87186; 87205; 87640

== ENCOUNTER 2021-09-24 06:30 | Outpatient (CLI) | payer BC, SELFPAY ==
--- NOTE | 2021-09-24 06:43 | MRI_ITS ---
ACR Level 3 findings have been noted. An addendum which confirms receipt of the report will follow. STUDY: MRI RIGHT FOREFOOT WITHOUT CONTRAST REASON FOR EXAM: Right forefoot infection, foot injury 1 year ago, history of debridement, evaluate for osteomyelitis/abscess of the first digit. TECHNIQUE: Standardized fat and water weighted pulse sequences were obtained in all 3 orthogonal planes. COMPARISON: Radiographs 05/06/2021. FINDINGS: There is arthrosis of the metatarsophalangeal joint of the hallux with chondral thinning and subchondral cystic change of the first metatarsal head (inversion recovery sagittal image 8). There is mild bone edema of the tibial and fibular sesamoids (inversion recovery short axis images 15, 16) with mild decreased T1 bone marrow signal (T1 short axis image 15), worrisome for early osteomyelitis. There is arthrosis of the interphalangeal joint of the hallux with chondral thinning (T1 sagittal 9). There is bone edema of the proximal and distal phalanges of the great toe (inversion recovery sagittal images 6-9) with decreased T1 bone marrow signal (T1 sagittal image 9), worrisome for osteomyelitis. Normal medial and lateral heads of the flexor hallucis brevis tendons. Normal flexor and extensor hallucis longus tendons. Normal second through fifth metatarsophalangeal (MTP) joints. Normal interphalangeal joints of the second through fifth toes. Normal proximal, middle and distal phalanges of the second through fifth toes. There is soft tissue fullness at the plantar aspects of the second and third intermetatarsal spaces (T1 short axis images 20, 21), suspected small intermetatarsal neuromas. Normal flexor and extensor tendons of the second through fifth toes. Normal visualized metatarsi. Normal intrinsic muscles of the forefoot. There is edema in the subcutis adipose space. There is ill-defined focal fluid collection at the plantar aspect of the first metatarsophalangeal joint and first proximal phalanx (inversion recovery sagittal images 4-9), consistent with phlegmon/developing abscess. There is metallic artifact between the first and second metatarsals. MRI/Lower Ext/No Jt/w/o IMPRESSION: Signal alterations of the proximal and distal phalanges of the first digit and tibial and fibular sesamoids, worrisome for osteomyelitis. Ill-defined fluid collection at the plantar aspect of the first metatarsophalangeal joint and first proximal phalanx, consistent with phlegmon/developing abscess. Arthrosis of the first metatarsophalangeal joint and interphalangeal joint of the first digit. Suspected small intermetatarsal neuromas of the second and third web spaces. Electronically Signed: Agustín Ellis MD at 11:26 EST ,
== END 2021-09-24 23:59 | disposition home or self-care (01) ==
PROVIDERS: PCP Family Medicine; Visit Provider Podiatrist
DX: L03.115 Cellulitis of right lower limb (principal); M86.9 Osteomyelitis, unspecified; M19.071 Primary osteoarthritis, right ankle and foot
CPT/HCPCS: 73718

== ENCOUNTER 2021-09-24 10:21 | Inpatient (IN) | payer BC, SELFPAY ==
[2021-09-24] VITALS (8 sets, daily range): BP systolic 139–167; BP diastolic 72–81; PULSE 69–90; RESP 15–17; TEMP 36.1–36.8; O2SAT 94–100; BMI 29.2
--- NOTE | 2021-09-24 11:09 | ED.VIS.LOWEX ---
HPI History of Present Illness HPI Narrative: Infected right great toe. Chief Complaint: Wound Informant: patient Onset/Context/Timing Onset: Weeks Context: Gradual Onset Timing: Continuous Current Severity: Moderate Maximum Severity: Moderate Narrative Narrative: 61-year-old male history of diabetes, [place] with a stent on Plavix, hypertension and peripheral arterial disease. Patient had a history of infections in his right great toe both in April and in August. He has had a debrided. Currently he has been on Cipro and doxycycline for 2 weeks and the toe and foot is looking worse with more swelling and redness and he was sent in today by his dragger out to be admitted for IV antibiotics. He also had an MRI of his foot today to be evaluated for possible osteomyelitis. Prior similar symptoms: Yes Recent Illness/Hospitalization: No PFSH PFSH Medical History Anxiety Chest pain Depression Diabetes mellitus Hallux limitus of right foot Heart disease HTN (hypertension) Myocardial infarct Toe infection Type 2 diabetes mellitus with diabetic polyneuropathy Home Medications albuterol sulfate 1 - 2 puff INHALATION Q4H PRN PRN 09/17/20 [History Last Taken Unknown] aspirin 81 mg PO DAILY@0800 09/17/20 [History Last Taken Unknown] carvedilol 6.25 mg PO BID 09/17/20 [History Last Taken Unknown] clopidogrel 75 mg PO DAILY 09/17/20 [History Last Taken Unknown] fluticasone propionate 2 puff IH DAILY 09/17/20 [History Last Taken Unknown] glimepiride 8 mg PO DAILY 09/17/20 [History Last Taken Unknown] lisinopril 20 mg PO DAILY 09/17/20 [History Last Taken Unknown] metformin 1,000 mg PO BID 09/17/20 [History Last Taken Unknown] rosuvastatin 10 mg PO QHS 09/17/20 [History Last Taken Unknown] sertraline 100 mg PO DAILY 09/17/20 [History Last Taken Unknown] Januvia 100 mg PO DAILY 05/06/21 [History Last Taken Unknown] tramadol 50 mg PO Q6H 05/06/21 [History Last Taken Unknown] amoxicillin-pot clavulanate [Augmentin] 1 tab PO Q12H #80 tab 05/08/21 [Rx Last Taken Unknown] doxycycline hyclate 100 mg PO BID #80 cap 05/08/21 [Rx Last Taken Unknown] amlodipine 10 mg PO DAILY 07/10/21 [History Last Taken Unknown] bempedoic acid [Nexletol] 180 mg PO DAILY 07/10/21 [History Last Taken Unknown] cephalexin 500 mg PO BID 07/10/21 [History Last Taken Unknown] cilostazol 100 mg PO BID 07/10/21 [History Last Taken Unknown] ezetimibe 10 mg PO DAILY 07/10/21 [History Last Taken Unknown] ciprofloxacin HCl [Cipro] 500 mg PO BID 09/24/21 [History Last Taken Unknown] Allergy/AdvReac Type Severity Reaction Status Date / Time No Known Allergies Allergy Verified 09/24/21 10:24 Surgical History History of coronary artery stent placement Hx of cardiac cath Social History Smoking Status: Never smoker ROS ROS ED ROS Narrative Denies. Review of Systems ROS Unobtainable: Denies due to encephalopathy Constitutional Constitutional ED: Denies chills or fever(s) Eyes Eyes: Denies change in vision ENT ENT ED: Denies ear pain Cardiovascular Cardiovascular: Denies chest pain Respiratory/Chest Respiratory/Chest: Denies cough or dyspnea Gastrointestinal Gastrointestinal: Denies abdominal pain, diarrhea, nausea or vomiting Genitourinary Genitourinary ED: Denies dysuria Musculoskeletal Musculoskeletal: Denies myalgias Integumentary Reports rash Neurologic Neurologic: Denies headache(s) Psychiatric Psychiatric: Denies depression Endocrine Endocrinology: Denies polyuria Hematologic/Lymphatic Hematologic/Lymphatic: Denies easy bruising Allergic/Immunologic Allergic/Immunologic ED: Denies urticaria EXAM Physical Exam Narrative Exam Narrative: 61-year-old male no acute distress. Vital signs stable afebrile. He does not look septic or toxic. H EENT exam unremarkable. Moist with membranes. Lungs clear to auscultation. Heart regular rhythm rate about 75 no murmur. Abdomen soft nontender. Moving all 4 extremities. His right great toe is red, swollen there is a large tissue deficit in the toe from prior debridement. It cellulitic and also there is swelling and redness over the great toe moving into the foot and midfoot. There is no lymphangitic streaking above the ankle. Calves nontender. There is no axillary lymphadenopathy. He is able to wiggle his toes. Const Vital Signs: 09/24/21 10:22 09/24/21 10:45 Temperature 97.0 F L 97.0 F L Temperature Source Temporal Temporal Pulse Rate 76 76 Respiratory Rate 15 15 Blood Pressure 139/72 H 139/72 H Blood Pressure Mean 94 94 Pulse Ox 98 98 Oxygen Delivery Method Room Air Room Air Positive well nourished and well developed; Negative for obese, cachectic, contractures or unkempt General Appearance ED: well developed and NAD; Negative for unkempt, cachectic or contractures Nutritional Appearance: Negative for cachectic or obese HEENT Reports moist mucous membranes normocephalic and atraumatic Neck full ROM and supple Thyroid: Negative for tender Chest Wall inspection of chest normal and palpation of chest normal Resp normal respiratory effort, No no retractions and clear to auscultation bilaterally Auscultation: Negative for rales, rhonchi or wheezes Cardio regular rate, regular rhythm, S1 normal heart sound, S2 normal heart sound and no murmurs GI non-tender, non-distended and no masses Auscultation: normoactive bowel sounds Palpation: soft; Negative for tender, guarding or rebound tenderness present Back/Spine no CVA tenderness General Back: Negative for CVA tenderness Cervical Spine: Negative for cervical spine tenderness Thoracic Spine / Upper Back: Negative for thoracic spinal tenderness Extremity normal to inspection and full ROM Extremity Narrative: Except right foot great toe redness and swelling consistent with cellulitis and infection. Large tissue deficit of the right great toe. Obvious cellulitis possible osteomyelitis. General Extremety ED: Negative for cyanosis or edema General Extremity: Negative for cyanosis or edema Neuro oriented x3 and moves all extremities Sensorium / Orientation: alert, oriented to person, oriented to place and oriented to time Motor Exam: strength 5/5 throughout Psych mental status grossly normal Appearance: Negative for unkempt Mood & Affect: Negative for anxious Skin No no wounds Skin Narrative: Wound and cellulitis right great toe and foot. Lesions: no lesions Rashes: No no rashes MDM MDM MDM Narrative Medical decision making narrative: 61-year-old male with failed outpatient antibiotic therapy for right great toe infection and possible osteomyelitis. Known history of peripheral arterial disease and diabetic. He will be started on IV Zosyn. He had an MRI of his foot today. Screening labs are being obtained and he will be admitted. Repeat exam unchanged at 11:52 AM. Hospitalist on page for admission and IV antibiotics. Lab Data Attestation: I reviewed the patient's lab results. Lab results narrative: CBC shows a white count of 10.8. H&H 11.9 and 35.4. Electrolytes show a gap of 6 BUN of 20 creatinine 1.2. Glucose 182. MRI done earlier today was read that the radiologist is concerning for osteomyelitis of the great toe with also fluid can collection that may be an abscess or phlegmon. Labs: Laboratory Results - last 24 hr 09/24/21 09/24/21 11:30 11:30 WBC 10.8 RBC 4.41 L Hgb 11.9 L Hct 35.4 L MCV 80.3 MCH 27.0 MCHC 33.6 RDW Std Deviation 36.0 RDW Coeff of Divya 12.5 Plt Count 267 MPV 10.0 Immature Gran % (Auto) 0.400 Neut % (Auto) 78.7 H Lymph % (Auto) 12.8 L [place] % (Auto) 6.1 Eos % (Auto) 1.7 Baso % (Auto) 0.3 Absolute Neuts (auto) 8.5 H Absolute Lymphs (auto) 1.39 Nucleated RBC % 0 Sodium 138 Potassium 4.4 Chloride 109 H Carbon Dioxide 23.0 Anion Gap 6 BUN 20 H Creatinine 1.27 Estim Creat Clear Calc 58.35 Est GFR (MDRD) Af Amer 74 Est GFR (MDRD) Non-Af 61 BUN/Creatinine Ratio 15.7 Glucose 182 H Calcium 9.1 Discharge Plan Dx/Rx/DC Orders Clinical Impression: Ulcer of right foot with necrosis of bone, CAD (coronary artery disease), Type 2 diabetes mellitus with diabetic polyneuropathy, PAD (peripheral artery disease), Osteomyelitis Disposition Disposition: Acute Care [facility]
[2021-09-24 11:37] LABS: Absolute Lymphocyte Count 1.39 X10^3/uL (0.83-4.51); Absolute Neutrophil Count 8.5 X10^3/uL (2.0-7.7); Basophil# 0.03 X10^3/uL; Basophil% 0.3 % (0-1); Eosinophil# 0.18 X10^3/uL; Eosinophils% 1.7 % (0-5); Hematocrit 35.4 % (40-54); Hemoglobin 11.9 g/dL (13.0-16.5); Lymphocyte # 1.39 X10^3/ul (0.83-4.51); Lymphocyte % 12.8 % (19-41); Mean Corp Hgb Conc 33.6 g/dL (32-36); Mean Corpuscular Volume 80.3 fL (80-94); Monocyte# 0.66 X10^3/uL; Monocyte% 6.1 % (0-10); NRBC Flagged by Analyzer 0 % (0-5); Neutrophil # 8.53 X10^3/uL (2.7-7.7); Neutrophil % 78.7 % (47-70); Platelet Count 267 K/mm3 (150-450); RBC Distribution Width CV 12.5 % (11.6-14.6); Red Blood Count 4.41 M/mm3 (4.6-6.2); White Blood Count 10.8 K/mm3 (4.4-11.0)
[2021-09-24 11:50] LABS: Anion Gap 6 (5-15); BUN 20 mg/dL (7-18); BUN/Creat Ratio 15.7 RATIO (10-20); Calcium,Total 9.1 mg/dL (8.5-10.1); Chloride 109 mmol/L (98-107); Creatinine, Serum 1.27 mg/dL (0.70-1.30); EST Glomerular Filtration Rate 61 mL/min (>60); Est Glom Filt Rate - Afr Amer 74 mL/min (>60); Estimated Creatinine Clearance 58.35 ml/min; Glucose 182 mg/dL (74-106); Potassium 4.4 mmol/L (3.5-5.1); Sodium Level 138 mmol/L (136-145)
--- NOTE | 2021-09-24 12:25 | CASEMGMT ---
REJI PHILLIPS Assessment: RN CM to room to meet with patient for initial transition planning/care coordination assessment. REJI PHILLIPS introduced self and role at [facility]. Patient voices understanding and consents to assessment at this time. No visitors present at bedside. Patient is alert and oriented and answers all questions appropriately. Affect appears flat and patient makes poor eye contact. Care providers, pharmacy, and demographics verified/updated at this time. Admitting Dx: right toe osteomyelitis PCP: Vesna Specialists: Kwesi- podiatry, Russell- vascular surgeon. Patient does not see an lead architect. Preferred Pharmacy: [facility] Insurance: [place] Prescription Benefit: yes Living Will/HPOA: Patient denies having a living will or HPOA. LNOK: Mother Caryl Vargas Living Arrangements: Patient lives alone in single story house with two steps to enter the home. Patient states independent with ADLs prior to hospitalization. Smoking/ETOH: Never smoker, denies ETOH use Transportation: Patient drives self and denies transportation concerns. DME/HHC/SNF: Patient has a glucometer and testing supplies available at home and reports he tests his blood glucose about once a day. Denies previous HHC or SNF stays. Patient was previously admitted to [facility] 05/06/21 - 05/08/21 for osteomyelitis. Patient reports he has been visiting Dr. Orosco's office about once a week since the beginning of the year for wound care. Previously treated at [facility] but no longer treated there because of insurance. During previous hospitalization, patient admitted to feeling depressed. Today, patient offers only short answers to REJI PHILLIPS and appears depressed with flat affect and poor eye contact. REJI PHILLIPS asked patient if he has addressed feelings of depression with PCP to which patient answered, Yes. Patient reports, I think he gave me a medicine and reports compliant with medication regimen. When asked if having thoughts of self-harm, patient answered Oh yeah! When clarified if patient having thoughts of killing self or dying, patient again answers yes and admits to these thoughts every day. At this time, CHROME WORKER entered room and patient states, That's enough, I don't have anything else to say! ER BARBRA Sue made aware of patient's report of thoughts of self harm and will speak with patient. Patient has no concerns with going home at time of discharge. Prior to discussion regarding depression, REJI PHILLIPS spoke with patient about HHC for possible wound care needs, or if patient felt able to seek outpatient wound care. Patient answers, I don't know, I just don't know and appears somewhat overwhelmed with healthcare decisions. CM to follow for any discharge planning/needs. Advised patient to ask for CM if any questions/concerns/needs arise. Voices understanding. Plan: home, follow for possible wound care needs
--- NOTE | 2021-09-24 12:27 | HP.PCM.HOS_ITS ---
HPI - General General Date of Admission: 09/24/21 Date of Service: 09/24/21 Chief Complaint: Right foot wound HPI Narrative ROSETTA STEWART, is a 61 M who presented to the emergency department was coming hospital with a nonhealing infected right great toe wound. The patient indicates he has had issues with his right foot for approximately 1 year and had been seeing Dr. Bay for this previously. It sounds as if he is undergone hyperbaric treatment in [place] and been on antibiotics periodically. He has been seeing Dr. Browne and per discussion with her the foot looks dramatically worse when she evaluated earlier today as compared to what it had been looking like previously. She ordered an MRI as an outpatient which had been done prior to his arrival here. The MRI showed probable osteomyelitis in the first digit and the tibial and fibular sesamoid bones as well as an ill-defined fluid collection at the plantar aspect of the first MTP and first proximal phalanx consistent with a developing phlegmon/abscess and arthrosis of the first MTP and IPJ. He had been on oral antibiotics as an outpatient with Augmentin, Keflex, Cipro and doxycycline. He has seen Dr. Wells in the past for nonhealing foot ulcers and on 07/25/2021 had some vascular intervention done on his bilateral lower extremities at that time. The patient was referred to come to the emergency department by his carpet cutter given the worsening appearance of his fo ot. His vital signs were stable. His CBC shows a mild stable chronic normocytic anemia but he does have a left shift with neutrophilia. His BMP is unremarkable. His serum glucose on his BMP is 182. He did have a hemoglobin A1c which was done in April 2021. His A1c was 7.5 at that time. In the emergency department he was treated with Zosyn and request for admission was made. [facility] Medical History (Updated 09/24/21 @ 12:[address] Kaitlin Ozuna DO) Anxiety Asthma CAD (coronary artery disease) Chest pain Delayed wound healing Depression Diabetes mellitus DM2 (diabetes mellitus, type 2) Hallux limitus of right foot Hallux limitus of right foot Heart disease HTN (hypertension) Myocardial infarct Toe infection Type 2 diabetes mellitus with diabetic polyneuropathy Home Medications albuterol sulfate 1 - 2 puff INHALATION Q4H PRN PRN 09/17/20 [History Last Taken Unknown] aspirin 81 mg PO DAILY@0800 09/17/20 [History Last Taken Unknown] carvedilol 6.25 mg PO BID 09/17/20 [History Last Taken Unknown] clopidogrel 75 mg PO DAILY 09/17/20 [History Last Taken Unknown] fluticasone propionate 2 puff IH DAILY 09/17/20 [History Last Taken Unknown] glimepiride 8 mg PO DAILY 09/17/20 [History Last Taken Unknown] lisinopril 20 mg PO DAILY 09/17/20 [History Last Taken Unknown] metformin 1,000 mg PO BID 09/17/20 [History Last Taken Unknown] rosuvastatin 10 mg PO QHS 09/17/20 [History Last Taken Unknown] sertraline 100 mg PO DAILY 09/17/20 [History Last Taken Unknown] Januvia 100 mg PO DAILY 05/06/21 [History Last Taken Unknown] tramadol 50 mg PO Q6H 05/06/21 [History Last Taken Unknown] amoxicillin-pot clavulanate [Augmentin] 1 tab PO Q12H #80 tab 05/08/21 [Rx Last Taken Unknown] doxycycline hyclate 100 mg PO BID #80 cap 05/08/21 [Rx Last Taken Unknown] amlodipine 10 mg PO DAILY 07/10/21 [History Last Taken Unknown] bempedoic acid [Nexletol] 180 mg PO DAILY 07/10/21 [History Last Taken Unknown] cephalexin 500 mg PO BID 07/10/21 [History Last Taken Unknown] cilostazol 100 mg PO BID 07/10/21 [History Last Taken Unknown] ezetimibe 10 mg PO DAILY 07/10/21 [History Last Taken Unknown] ciprofloxacin HCl [Cipro] 500 mg PO BID 09/24/21 [History Last Taken Unknown] Allergy/AdvReac Type Severity Reaction Status Date / Time No Known Allergies Allergy Verified 09/24/21 10:24 Family History (Updated 09/24/21 @ 12:[address] Kaitlin Ozuna DO) Other Diabetes Hypertension Surgical History History of coronary artery stent placement Hx of cardiac cath Social History (Updated 09/24/21 @ 12:[address] Kaitlin Ozuna DO) Smoking Status: Never smoker alcohol intake: never substance use type: does not use ROS Constitutional Constitutional: Denies anorexia, change in weight, chills, fatigue, fever(s), malaise, night sweats, weakness or other Eyes Eyes: Denies blurry vision, change in eye color, change in vision, discharge from eye(s), double vision, erythema, eye pain, loss of vision or other ENT HEENT: Denies abnormal hearing, dysphagia, ear pain, epistaxis, headache(s), hearing loss, nasal congestion, nasal discharge, post nasal drip, sinus pressure, sore throat or other Cardiovascular Cardiovascular: Denies chest pain, claudication, dyspnea on exertion, edema, lightheadedness, orthopnea, palpitations, paroxysmal nocturnal dyspnea, rapid heart rate, syncope or other Respiratory/Chest Respiratory/Chest: Denies cough, dyspnea, excessive phlegm production, hemoptysis, productive cough, shortness of breath at rest, shortness of breath with exertion, wheezing or other Gastrointestinal Gastrointestinal: Reports nausea; Denies abdominal pain, coffee ground emesis, constipation, diarrhea, dyspepsia, hematemesis, hematochezia, loose stools, melena, vomiting or other Genitourinary Genitourinary: Denies burning urination, difficulty urinating, dysuria, hematuria, nocturia, urinary frequency, urinary hesitancy, urinary incontinence, urinary urgency or other Musculoskeletal Musculoskeletal: Reports joint pain, joint swelling and other Neurologic Neurologic: Denies abnormal gait, abnormal speech, confusion, disequilibrium, dizziness, focal weakness, headache(s), numbness, paresthesias, seizure-like activity, seizures, syncope, tingling, tremor(s) or other Psychiatric Psychiatric: Reports anxiety and depression; Denies homicidal ideation, suicidal ideation or other Endocrine Endocrinology: Denies change in body appearance, cold intolerance, excessive sweating, heat intolerance, polydipsia, polyuria or other Hematologic/Lymphatic Hematologic/Lymphatic: Denies anemia, easy bleeding, easy bruising, lymphadenopathy or other Allergic/Immunologic Allergic/Immunologic: Denies rhinitis, hives, eczemia, asthma or other Vital Signs Vital Signs Vital Signs: 09/24/21 10:22 09/24/21 10:45 Temperature 97.0 F L 97.0 F L Temperature Source Temporal Temporal Pulse Rate 76 76 Respiratory Rate 15 15 Blood Pressure 139/72 H 139/72 H Blood Pressure Mean 94 94 Pulse Ox 98 98 Oxygen Delivery Method Room Air Room Air Weight Weight: 87.09 kg Body Mass Index (BMI) 29.2 Physical Exam Const alert, oriented x3, no apparent distress and well nourished Constitutional Narrative: Overweight, very anxious upper middle-aged white male sitting up in bed in the emergency department, appears nontoxic General Appearance: cooperative HEENT normocephalic, head/scalp atraumatic, hearing grossly normal bilaterally and moist oral mucous membranes HEENT Narrative: Mallampati is 2-3, no thrush, dentition is good Eyes PERRL, EOMs intact bilaterally and conjunctivae normal Eyes Narrative: No scleral icterus Neck no lymphadenopathy, supple and no JVD Neck Narrative: Trachea midline, neck is short and thick, no thyroid enlargement noted on exam Resp normal respiratory effort, no retractions, no use of accessory muscles and clear to auscultation bilaterally Auscultation: Negative for crackles, rales, rhonchi or wheezes Cardio regular rate, regular rhythm, S1 normal heart sound, S2 normal heart sound, no rub, no gallops, no clicks and no JVD Cardio Narrative: 2 out of 6 systolic murmur loudest at right upper sternal border GI normal to inspection, nondistended, normoactive bowel sounds, soft to palpation, non-tender and non-distended; Negative for hepatosplenomegaly Extremity no clubbing, cyanosis or edema Extremity Narrative: Diminished pedal pulses bilaterally Skin Skin Narrative: Right foot with large wound on medial side of hallux, surrounding necrotic tissue, wound appears to go to the bone, erythema up to the midfoot, area of fluctuation on the plantar surface at the first MTP on the right, area is very tender and warm Neuro oriented x3, CN's II-XII intact bilaterally, moves all extremities and no focal motor deficits Neuro Narrative: Right foot is hypersensitive Sensorium / Orientation: awake and alert Speech: speech normal Motor Exam: strength 5/5 throughout Psych Psych Narrative: Extremely anxious with fact, patient repeats questions multiple times after her answers have been given Mood & Affect: anxious Results Lab / Micro Data Result Diagrams: 09/24/21 11:30 09/24/21 11:30 Labs: Laboratory Results - last 24 hr 09/24/21 11:30: WBC 10.8, RBC 4.41 L, Hgb 11.9 L, Hct 35.4 L, MCV 80.3, MCH 27.0, MCHC 33.6, RDW Std Deviation 36.0, RDW Coeff of Divya 12.5, Plt Count 267, MPV 10.0, Immature Gran % (Auto) 0.400, Neut % (Auto) 78.7 H, Lymph % (Auto) 12.8 L, [place] % (Auto) 6.1, Eos % (Auto) 1.7, Baso % (Auto) 0.3, Absolute Neuts (auto) 8.5 H, Absolute Lymphs (auto) 1.39, Nucleated RBC % 0 09/24/21 11:30: Sodium 138, Potassium 4.4, Chloride 109 H, Carbon Dioxide 23.0, Anion Gap 6, BUN 20 H, Creatinine 1.27, Estim Creat Clear Calc 58.35, Est GFR (MDRD) Af Amer 74, Est GFR (MDRD) Non-Af 61, BUN/Creatinine Ratio 15.7, Glucose 182 H, Calcium 9.1 Assessment & Plan Assessment/Plan (1) Osteomyelitis: (2) PAD (peripheral artery disease): PLAN: Cellulitis/abscess/osteomyelitis right foot -Culture wound -MRSA PCR to wound -Broad-spectrum antibiotics with vancomycin and Zosyn for now -MRI done this morning by podiatry shows OM -Continue Ultram for pain -Consult vascular surgery as patient has history of PAD and has undergone recent intervention -Consult podiatry-Case discussed with Dr. Orosco -We will make patient n.p.o. after midnight [id number] -Post recent hemoglobin A1c was 7.5 from 2020 -Check hemoglobin A1c -Hold home oral agents loading min,, and glimepiride -Start Lantus 10 units subcu at at bedtime -Sliding scale insulin moderate dose -Accu-Cheks before meals and at bedtime Peripheral vascular disease -Consult Dr. Wells -Patient had recent intervention done by vascular surgery in 2020 related to his foot wounds -Continue cilostazol -Continue aspirin -Continue Plavix Hyperlipidemia -Continue on statin Hypertension -Continue carvedilol -Continue lisinopril Asthma -Continue as needed albuterol inhaler CAD -Patient with history of stents -Continue aspirin/Plavix -Check preoperative EKG Anxiety/depression -Continue home sertraline DVT prophylaxis -Lovenox -SCDs Charges/Coding Visit Charges Inpatient E&M: 11495 Init Hosp L3
--- NOTE | 2021-09-24 12:40 | EKG12_ITS ---
Test Reason : ADMISSION Blood Pressure : / mmHG Vent. Rate : 069 BPM Atrial Rate : 069 BPM P-R Int : 138 ms QRS Dur : 082 ms QT Int : 418 ms P-R-T Axes : 035 006 052 degrees QTc Int : 447 ms Normal sinus rhythm Nonspecific T wave abnormality Abnormal ECG Confirmed by NAT MARCUS, MANDY ([id number]), commercial production editor HERNAN JACINTO ([id number]) on 09/26/2021 11:31:42 AM Referred By: JARAD Confirmed By:MANDY JOHNS MD
--- NOTE | 2021-09-24 12:49 | ED.RN ---
dr rubio in and iv atb up and running. pt fixated and asking same questions over and over about losing foot no matter what dr. rubio said pt asking again despite being told that dr. perez would be one to determine how much bone involvment there is. pt withdrawn and sw in to talk with while awaits bed. area of redness marked in marker per dr. rubio. iv atb up.
--- NOTE | 2021-09-24 12:57 | CM.ED ---
Addendum entered by Ghazal Sue 09/24/21 16:31: To clarify, patient does report to currently feel safe to self and denies intent or plan to complete suicide, as listed below. Now that patient has room assignment. hand off provided to acute unit criminal justice social worker, Justina Sue. This criminal justice social worker communicating recommendation for continued social work services while at [facility] and mental health follow up in the community. Social Work to continue to follow up. WILBER Lopez Original Note: Social Work Notified by Delphine MENDOZA CM that patient expressed thoughts of suicide daily. Met with patient in room. Introduced self and criminal justice social worker role. Patient agreeable to speak with this criminal justice social worker. This criminal justice social worker noting that patient is tearful. This criminal justice social worker inquired about conversation with REJI PHILLIPS. Patient with limited eye contact when speaking about mental health. Patient reports I just don't want to loose my toe. Patient does confirm to have thoughts of suicide with no plan or history of attempts. Patient aware of plan for admission to acute care setting. Patient tearful throughout conversation, active support and listening provided. Patient reluctant to answer any further questions at this current time. This criminal justice social worker updated Dr. Ozuna on above information. When acute unit is confirmed this criminal justice social worker will provide hand off to acute care criminal justice social worker. SHANNA LopezS
[2021-09-24 14:00] LABS: Hemoglobin A1c 8.5 % (3.8-5.6)
[2021-09-24] MEDS: Morphine 4 MG/ML Syringe 6 MG IV (14:24)
[2021-09-24] MEDS: Ondansetron 4 MG/2 ML Vial IV (14:24)
[2021-09-24 15:10] LABS: M R Staph aureus DNA By PCR Negative (Negative); Probe Check PASS; Specimen Processing Control PASS; Staph aureus DNA By PCR NEGATIVE (Negative)
[2021-09-24 17:40] LABS: Bedside Glucose 235 mg/dL (70-110)
[2021-09-24] MEDS: Insulin Lispro 100 UNIT/ML INSULN.PEN SC (18:01)
--- NOTE | 2021-09-24 20:39 | PCM.RX.CS ---
Consult Pharmacy has been consulted to manage selected antiobiotic: Vancomycin Type of Consult: New start Prior Doses of Antibiotics Received/Current Regimen: Medications Vancomycin HCl 750 mg/ Sodium (Chloride) 265 mls @ 250 mls/hr IV Q12H MARTINA Labs: Sodium 138 mmol/L (136-145) 09/24/21 11:30 Potassium 4.4 mmol/L (3.5-5.1) 09/24/21 11:30 Chloride 109 mmol/L (98-107) H 09/24/21 11:30 Carbon Dioxide 23.0 mmol/L (21.0-32.0) 09/24/21 11:30 Anion Gap 6 (5-15) 09/24/21 11:30 BUN 20 mg/dL (7-18) H 09/24/21 11:30 Creatinine 1.27 mg/dL (0.70-1.30) 09/24/21 11:30 Est GFR (MDRD) Af Amer 74 mL/min (>60) 09/24/21 11:30 Est GFR (MDRD) Non-Af 61 mL/min (>60) 09/24/21 11:30 BUN/Creatinine Ratio 15.7 RATIO (10-20) 09/24/21 11:30 Glucose 182 mg/dL (74-106) H 09/24/21 11:30 Weight used for dosin kg Estimated Creatinine Clearance: 58 Goal Trough: 15-20 mcg/mL Pharmacy Plan for Drug Dosing: Vancomycin 1250mg IV x1, 750mg IV q12h with trough prior to 4th dose per policy. Pharmacy Service will continue to monitor and adjust dosing as required. Follow-Up Labs: Trough Vancomycin - 09/26 @ 0530
[2021-09-24] MEDS: traMADol 50 MG Tablet PO (21:28)
[2021-09-24] MEDS: Cilostazol 50 MG Tablet 100 MG PO (21:28)
[2021-09-24] MEDS: Carvedilol 6.25 MG Tablet PO (21:28)
[2021-09-24] MEDS: Atorvastatin Calcium 20 MG Tablet PO (21:28)
[2021-09-24 21:41] LABS: Bedside Glucose 209 mg/dL (70-110)
[2021-09-25] VITALS (12 sets, daily range): BP systolic 116–154; BP diastolic 72–81; PULSE 69–80; RESP 16–18; TEMP 36.2–36.9; O2SAT 94–99; BMI 31.2
[2021-09-25 06:02] LABS: Absolute Lymphocyte Count 1.64 X10^3/uL (0.83-4.51); Absolute Neutrophil Count 6.3 X10^3/uL (2.0-7.7); Basophil# 0.01 X10^3/uL; Basophil% 0.1 % (0-1); Eosinophil# 0.24 X10^3/uL; Eosinophils% 2.7 % (0-5); Hematocrit 32.9 % (40-54); Hemoglobin 10.8 g/dL (13.0-16.5); Lymphocyte # 1.64 X10^3/ul (0.83-4.51); Lymphocyte % 18.6 % (19-41); Mean Corp Hgb Conc 32.8 g/dL (32-36); Mean Corpuscular Hgb 25.9 pg (27.0-32.0); Mean Corpuscular Volume 78.9 fL (80-94); Mean Platelet Vol. 9.9 fl (6.2-12.0); Monocyte% 6.8 % (0-10); NRBC Flagged by Analyzer 0 % (0-5); Neutrophil # 6.28 X10^3/uL (2.7-7.7); Neutrophil % 71.2 % (47-70); Platelet Count 259 K/mm3 (150-450); RBC Distribution Width CV 12.6 % (11.6-14.6); RBC Distribution Width SD 35.9 fl (35.1-43.9); Red Blood Count 4.17 M/mm3 (4.6-6.2); White Blood Count 8.8 K/mm3 (4.4-11.0)
[2021-09-25] MEDS: Insulin Lispro 100 UNIT/ML INSULN.PEN SC ×2 (06:29→16:24)
[2021-09-25 06:36] LABS: Bedside Glucose 216 mg/dL (70-110)
[2021-09-25 06:43] LABS: ALB/GLOB Ratio 0.9 RATIO (0.9-2.4); AST(SGOT) 25 U/L (15-37); Alanine Aminotransfer ALT/SGPT 40 U/L (16-61); Albumin, Serum 3.3 g/dL (3.2-5.0); Alkaline Phosphatase 112 U/L (45-117); Anion Gap 7 (5-15); BUN 15 mg/dL (7-18); BUN/Creat Ratio 12.6 RATIO (10-20); Calcium,Total 8.5 mg/dL (8.5-10.1); Chloride 104 mmol/L (98-107); Creatinine, Serum 1.19 mg/dL (0.70-1.30); EST Glomerular Filtration Rate 66 mL/min (>60); Est Glom Filt Rate - Afr Amer 80 mL/min (>60); Estimated Creatinine Clearance 62.27 ml/min; Globulin 3.6 g/dL (2.2-4.2); Glucose 227 mg/dL (74-106); Potassium 3.9 mmol/L (3.5-5.1); Protein, Total 6.9 g/dL (6.4-8.2); Sodium Level 136 mmol/L (136-145)
--- NOTE | 2021-09-25 07:09 | CON.PCM_ITS ---
Assessment & Plan Assessment/Plan (1) Osteomyelitis: (2) Ulcer of right foot with necrosis of bone: (3) PAD (peripheral artery disease): PLAN: Evaluation performed. Reviewed diagnostic data. Reviewed MRI findings and labs. Given the MRI findings and clinical findings recommend 1st toe amputation/partial 1st ray amputation. Reviewed the rationale of this with patient, discussed with patient in detail. He refuses as this time and requests a second opinion. Will consult Dr. Calix for second opinion. Patient has been started on IV antibiotics Vanc/Zosyn. PVD: Dr. Lunsford has been consulted. Wound care right foot: Betadine to 1st toe with ovelrying gauze dressing - change daily. Podiatry will continue to follow. HPI Consult Data Date of Consult: 09/25/21 HPI Narrative Reason for Consultation: Right foot infection HPI Narrative: Note - date of this consult was 09/24/2021 - patient was seen evening of . ROSETTA STEWART, is a 61 M who presents from clinic due to right foot infection. Patient has hx of chronic ulceration to the right 1st toe, has followed with Dr. Orosco and Dr. Oleary. The ulcer is not healing, and has been getting worse. He has an infection, has been started on IV antibiotics. He relates he does not want an amputation. He has PVD and follows with Dr. Wells. He has no fever, chills, nausea or vomiting. He has hx of depression, diabetes as well. [facility] Medical History Anxiety Asthma CAD (coronary artery disease) Chest pain Delayed wound healing Depression Diabetes mellitus DM2 (diabetes mellitus, type 2) Hallux limitus of right foot Hallux limitus of right foot Heart disease HTN (hypertension) Myocardial infarct Toe infection Type 2 diabetes mellitus with diabetic polyneuropathy Home Medications albuterol sulfate 1 - 2 puff INHALATION Q4H PRN PRN 09/17/20 [History Last Taken Unknown] aspirin 81 mg PO DAILY@0800 09/17/20 [History Last Taken 09/24/21 08:00] carvedilol 6.25 mg PO BID 09/17/20 [History Last Taken 09/24/21 08:00] clopidogrel 75 mg PO DAILY 09/17/20 [History Last Taken 09/24/21 08:00] fluticasone propionate 2 puff IH DAILY 09/17/20 [History Last Taken Unknown] glimepiride 8 mg PO DAILY 09/17/20 [History Last Taken 09/24/21 08:00] lisinopril 20 mg PO DAILY 09/17/20 [History Last Taken 09/24/21 08:00] metformin 1,000 mg PO BID 09/17/20 [History Last Taken 09/24/21 08:00] rosuvastatin 10 mg PO QHS 09/17/20 [History Last Taken 09/23/21] sertraline 100 mg PO DAILY 09/17/20 [History Last Taken Unknown] Januvia 100 mg PO DAILY 05/06/21 [History Last Taken 09/24/21 08:00] tramadol 50 mg PO Q6H 05/06/21 [History Last Taken Unknown] amoxicillin-pot clavulanate [Augmentin] 1 tab PO Q12H #80 tab 05/08/21 [Rx Last Taken 09/24/21 10:00] doxycycline hyclate 100 mg PO BID #80 cap 05/08/21 [Rx Last Taken Unknown] amlodipine 10 mg PO DAILY 07/10/21 [History Last Taken 09/24/21 10:00] bempedoic acid [Nexletol] 180 mg PO DAILY 07/10/21 [History Last Taken 09/24/21 08:00] cephalexin 500 mg PO BID 07/10/21 [History Last Taken 09/24/21 08:00] cilostazol 100 mg PO BID 07/10/21 [History Last Taken 09/24/21 08:00] ezetimibe 10 mg PO DAILY 07/10/21 [History Last Taken 09/24/21 08:00] ciprofloxacin HCl [Cipro] 500 mg PO BID 09/24/21 [History Last Taken 09/24/21 08:00] Allergy/AdvReac Type Severity Reaction Status Date / Time No Known Allergies Allergy Verified 09/24/21 10:24 Family History Other Diabetes Hypertension Surgical History History of coronary artery stent placement Hx of cardiac cath Social History Smoking Status: Never smoker alcohol intake: never substance use type: does not use Physical Exam Const alert, oriented x3 and no apparent distress Extremity Extremity Narrative: Right 1st toe ulceration down to bone with necrotic dry eschar at medial IPJ, there is another ulceration lateral 1st toe down to subcutaneous tissue, there is erythema and edema to the 1st ray, clinically appears to be developing an plantar 1st metatarsal head abscess right foot - there is no evidence of acute ischemia. No other ulcerations or areas of infect ion noted bilateral. Lab / Micro Data Result Diagrams: 09/25/21 04:59 09/25/21 04:59 Labs: Laboratory Results - last 24 hr 09/24/21 11:30: WBC 10.8, RBC 4.41 L, Hgb 11.9 L, Hct 35.4 L, MCV 80.3, MCH 27.0, MCHC 33.6, RDW Std Deviation 36.0, RDW Coeff of Divya 12.5, Plt Count 267, MPV 10.0, Immature Gran % (Auto) 0.400, Neut % (Auto) 78.7 H, Lymph % (Auto) 12.8 L, [place] % (Auto) 6.1, Eos % (Auto) 1.7, Baso % (Auto) 0.3, Absolute Neuts (auto) 8.5 H, Absolute Lymphs (auto) 1.39, Nucleated RBC % 0 09/24/21 11:30: Sodium 138, Potassium 4.4, Chloride 109 H, Carbon Dioxide 23.0, Anion Gap 6, BUN 20 H, Creatinine 1.27, Estim Creat Clear Calc 58.35, Est GFR (MDRD) Af Amer 74, Est GFR (MDRD) Non-Af 61, BUN/Creatinine Ratio 15.7, Glucose 182 H, Calcium 9.1 09/24/21 11:30: Hemoglobin A1c 8.5 H 09/24/21 13:00: S.aureus Protein A PCR NEGATIVE, MRSA (PCR) Negative 09/24/21 17:34: POC Glucose 235 H 09/24/21 21:24: POC Glucose 209 H 09/25/21 04:59: WBC 8.8, RBC 4.17 L, Hgb 10.8 L, Hct 32.9 L, MCV 78.9 L, MCH 25.9 L, MCHC 32.8, RDW Std Deviation 35.9, RDW Coeff of Divya 12.6, Plt Count 259, MPV 9.9, Immature Gran % (Auto) 0.600, Neut % (Auto) 71.2 H, Lymph % (Auto) 18.6 L, [place] % (Auto) 6.8, Eos % (Auto) 2.7, Baso % (Auto) 0.1, Absolute Neuts (auto) 6.3, Absolute Lymphs (auto) 1.64, Nucleated RBC % 0 09/25/21 04:59: Sodium 136, Potassium 3.9, Chloride 104, Carbon Dioxide 25.0, Anion Gap 7, BUN 15, Creatinine 1.19, Estim Creat Clear Calc 62.27, Est GFR (MDRD) Af Amer 80, Est GFR (MDRD) Non-Af 66, BUN/Creatinine Ratio 12.6, Glucose 227 H, Calcium 8.5, Phosphorus 3.0, Total Bilirubin 0.30, AST 25, ALT 40, A lkaline Phosphatase 112, Total Protein 6.9, Albumin 3.3, Globulin 3.6, Albumin/Globulin Ratio 0.9 09/25/21 06:27: POC Glucose 216 H
--- NOTE | 2021-09-25 07:18 | PCM.CONS.GEN ---
Assessment & Plan Assessment/Plan (1) Osteomyelitis: PLAN: Patient was examined today at bedside and we had long discussion regarding his clinical exam and his advanced imaging. on mri, he has concern for underlying osteomyelitis of right hallux. On clinical exam, he has full thickness ulceration of right hallux ipj with nonsalveable soft-tissue. Further, there are concerns for developing abscess of right plantar medial 1st metatarsal phalangeal joint. Patient has been evaluated by Dr. Caba and per discussion with both Dr. Caba and this patient, the plan is to proceed with amputation of right great toe, removal of sesamoids, I&D of abscess and partial 1st ray resection if necessary. I do agree that amputation of great toe is necessary. with underlying osteomyelitis in the presence of nonsalveable soft-tissue, I do not believe antibiotics alone will be of benefit. patient is very resistant to any degree of amputation or partial first ray resection. I informed patient that I do not believe antibiotics alone will be of benefit. I would plan to proceed with amputation of great toe, I&D of abscess and inspection of first metatarsal. if the metatarsal appears to be nonsalveable, then strong consideration into partial first ray resection would be necessary. If the metatarsal appears healthy, then biopsy could be performed instead. Patient is very resistant to any degree of surgical intervention. If patient refuses any degree of amputation, I do believe it will only be a matter of time until he returns to the hospital requiring amputation. I would continue antibiotics as ordered. I would consider repeat noninvasive vascluar testing (2) PAD (peripheral artery disease): (3) Ulcer of right foot with necrosis of bone: HPI Consult Data Date of Consult: 09/25/21 HPI Narrative HPI Narrative: ROSETTA STEWART, is a 61 M who presents for diabetic ulceration of right great toe worrisome for worsening patient has history of diabetic ulceration that apparently has been present for greater than one year. From discussion with patient, he has been receiving local wound care at [facility] and underwent 75 treatments with hyperbaric medicine. patient reports that the wound was healing and he had a very small callus late 2020. He states his insurance switched at the end of 2020 so he changed providers to Dr. Oleary. He reports that Dr. Oleary performed a bedside debridement of the right hallux and since undergoing debridement, he has had on/off episodes with cellulitis. He presented to [facility] in late [address] Orosco on consult. Dr. Orosco has been managing the wound and he had been improving (this according to pateint). Unfortunately, the patient presented to Dr. Orosco office yesterday and it was determined that the wound was worsening, bone was exposed and patient needed admission to the hospital for planned amputation. Dr. Caba evaluated this patient yesterday and mri was reviewed. mri is worrisome for osteomyelitis of hallux distal and proximal phalanx and sesamoids. Dr. Caba has proposed amputation of toe, removal of sesamoids with possible partial first ray resection. Patient is resistant to any degree of amputation and for this reason, this patient has requested 2nd opinion. [facility] Medical History Anxiety Asthma CAD (coronary artery disease) Chest pain Delayed wound healing Depression Diabetes mellitus DM2 (diabetes mellitus, type 2) Hallux limitus of right foot Hallux limitus of right foot Heart disease HTN (hypertension) Myocardial infarct Toe infection Type 2 diabetes mellitus with diabetic polyneuropathy Home Medications albuterol sulfate 1 - 2 puff INHALATION Q4H PRN PRN 09/17/20 [History Last Taken Unknown] aspirin 81 mg PO DAILY@0800 09/17/20 [History Last Taken 09/24/21 08:00] carvedilol 6.25 mg PO BID 09/17/20 [History Last Taken 09/24/21 08:00] clopidogrel 75 mg PO DAILY 09/17/20 [History Last Taken 09/24/21 08:00] fluticasone propionate 2 puff IH DAILY 09/17/20 [History Last Taken Unknown] glimepiride 8 mg PO DAILY 09/17/20 [History Last Taken 09/24/21 08:00] lisinopril 20 mg PO DAILY 09/17/20 [History Last Taken 09/24/21 08:00] metformin 1,000 mg PO BID 09/17/20 [History Last Taken 09/24/21 08:00] rosuvastatin 10 mg PO QHS 09/17/20 [History Last Taken 09/23/21] sertraline 100 mg PO DAILY 09/17/20 [History Last Taken Unknown] Januvia 100 mg PO DAILY 05/06/21 [History Last Taken 09/24/21 08:00] tramadol 50 mg PO Q6H 05/06/21 [History Last Taken Unknown] amoxicillin-pot clavulanate [Augmentin] 1 tab PO Q12H #80 tab 05/08/21 [Rx Last Taken 09/24/21 10:00] doxycycline hyclate 100 mg PO BID #80 cap 05/08/21 [Rx Last Taken Unknown] amlodipine 10 mg PO DAILY 07/10/21 [History Last Taken 09/24/21 10:00] bempedoic acid [Nexletol] 180 mg PO DAILY 07/10/21 [History Last Taken 09/24/21 08:00] cephalexin 500 mg PO BID 07/10/21 [History Last Taken 09/24/21 08:00] cilostazol 100 mg PO BID 07/10/21 [History Last Taken 09/24/21 08:00] ezetimibe 10 mg PO DAILY 07/10/21 [History Last Taken 09/24/21 08:00] ciprofloxacin HCl [Cipro] 500 mg PO BID 09/24/21 [History Last Taken 09/24/21 08:00] Allergy/AdvReac Type Severity Reaction Status Date / Time No Known Allergies Allergy Verified 09/24/21 10:24 Family History Other Diabetes Hypertension Surgical History History of coronary artery stent placement Hx of cardiac cath Social History Smoking Status: Never smoker alcohol intake: never substance use type: does not use Physical Exam Narrative Patient is alert and orientated. He does not appear to be in any distress vascular: DP and PT pulses nonpalpable to right foot. CFT is delayed. Skin temperature is warm to warm. hair growth is absent. There is erythema noted to the right medial first ray which does appear to be improving from previously outlined marking. Derm: there is full thickness ulceration with periwound necrotic eschar along the medial right hallux ipj. the wound measures 3.0 cm x 2.0 cm. the hallux interphalangeal joint is exposed. the lateral aspect of right hallux ipj has superficial ulceration with fibrotic slough. There is concern for developing abscess along the plantar medial 1st mtpj. there is pain to palpation of developing abscess. + erythema is noted to right foot. M/s: ulceration with exposed bone to right foot. MRI reviewed. There are marrow related changes of the right hallux distal phalanx, right hallux proximal phalanx and right 1st metatarsal head, best seen sagittal stir images Lab / Micro Data Result Diagrams: 09/25/21 04:59 09/25/21 04:59 Labs: Laboratory Results - last 24 hr 09/24/21 11:30: WBC 10.8, RBC 4.41 L, Hgb 11.9 L, Hct 35.4 L, MCV 80.3, MCH 27.0, MCHC 33.6, RDW Std Deviation 36.0, RDW Coeff of Divya 12.5, Plt Count 267, MPV 10.0, Immature Gran % (Auto) 0.400, Neut % (Auto) 78.7 H, Lymph % (Auto) 12.8 L, [place] % (Auto) 6.1, Eos % (Auto) 1.7, Baso % (Auto) 0.3, Absolute Neuts (auto) 8.5 H, Absolute Lymphs (auto) 1.39, Nucleated RBC % 0 09/24/21 11:30: Sodium 138, Potassium 4.4, Chloride 109 H, Carbon Dioxide 23.0, Anion Gap 6, BUN 20 H, Creatinine 1.27, Estim Creat Clear Calc 58.35, Est GFR (MDRD) Af Amer 74, Est GFR (MDRD) Non-Af 61, BUN/Creatinine Ratio 15.7, Glucose 182 H, Calcium 9.1 09/24/21 11:30: Hemoglobin A1c 8.5 H 09/24/21 13:00: S.aureus Protein A PCR NEGATIVE, MRSA (PCR) Negative 09/24/21 17:34: POC Glucose 235 H 09/24/21 21:24: POC Glucose 209 H 09/25/21 04:59: WBC 8.8, RBC 4.17 L, Hgb 10.8 L, Hct 32.9 L, MCV 78.9 L, MCH 25.9 L, MCHC 32.8, RDW Std Deviation 35.9, RDW Coeff of Divya 12.6, Plt Count 259, MPV 9.9, Immature Gran % (Auto) 0.600, Neut % (Auto) 71.2 H, Lymph % (Auto) 18.6 L, [place] % (Auto) 6.8, Eos % (Auto) 2.7, Baso % (Auto) 0.1, Absolute Neuts (auto) 6.3, Absolute Lymphs (auto) 1.64, Nucleated RBC % 0 09/25/21 04:59: Sodium 136, Potassium 3.9, Chloride 104, Carbon Dioxide 25.0, Anion Gap 7, BUN 15, Creatinine 1.19, Estim Creat Clear Calc 62.27, Est GFR (MDRD) Af Amer 80, Est GFR (MDRD) Non-Af 66, BUN/Creatinine Ratio 12.6, Glucose 227 H, Calcium 8.5, Phosphorus 3.0, Total Bilirubin 0.30, AST 25, ALT 40, Alkaline Phosphatase 112, Total Protein 6.9, Albumin 3.3, Globulin 3.6, Albumin/Globulin Ratio 0.9 09/25/21 06:27: POC Glucose 216 H
--- NOTE | 2021-09-25 08:19 | ADUL_ITS ---
Reason For Study: Diabetic wound Right Velocities Ext. Iliac Artery, dist = 176.9 cm./sec. Common Femoral Artery, mid = 113.2 cm./sec. Supf Femoral Artery, prox = 95.6 cm./sec. Supf Femoral Artery, mid = 97.7 cm./sec. SFA Distal, Prox stent, 95.5 cm/sec. SFA Distal, Mid stent, 110.9 cm/sec. Profunda Femoral Artery = 104.4 cm./sec. Popliteal artery, Distal stent, 126.2 cm/sec. [employer] distal, No flow. Post. Tibial Artery, prox = 69.5 cm./sec. Post. Tibial Artery, mid = 19.2 cm./sec. Peroneal Artery, prox = 57.2 cm./sec. Peroneal Artery, mid = 165.9 cm./sec. Peroneal Artery,dist = 24.8 cm./sec. Ant. Tibial Artery, prox = 81.4 cm./sec. Ant. Tibial Artery, mid = 94.1 cm./sec. Ant. Tibial Artery, dist = 43.5 cm./sec. Procedure Exam performed portable in patient room. VL/US Art Duplex Unilat Lower Ext Interpretation Summary Right lower extremity with distal posterior tibial artery occlusion. Elevated v elocities stenosis noted in the peroneal and anterior tibial artery with more biphasic flow noted. Popliteal stent appears patent and triphasic flow through the popliteal artery. Ordering Physician: Adrien Wells Referring Physician: Earle Malagon Performed By: Neyda Laura RVT
--- NOTE | 2021-09-25 08:35 | WOUNDNOTE ---
wound photo: right great toe
--- NOTE | 2021-09-25 08:35 | WOUNDNOTE ---
wound photo: right foot
--- NOTE | 2021-09-25 10:41 | WOUNDNOTE ---
Talked with patient who states he agrees to surgery. notified Dr Caba.
--- NOTE | 2021-09-25 11:22 | CON.PCM_ITS ---
Assessment & Plan Assessment/Plan (1) PAD (peripheral artery disease): PLAN: 1. PAD. Per the last angiogram at [facility] perfusion into the foot. We will recheck a duplex RACHEL to confirm that this is stable. He should be okay to proceed from a vascular standpoint with his toe amputation. He does have small vessel disease and is at risk for further potential limb loss. If the toe amputation has trouble healing we proceed with another angiogram. We will follow along as now as needed. HPI Consult Data Date of Consult: 09/25/21 HPI Narrative HPI Narrative: ROSETTA STEWART, is a 61 M who presents nonhealing right great toe. I previously seen him last fall and did a redo angioplasty of his anterior tibial had much better perfusion of the foot. Wound was healing and was improving. According to the patient, he had debridement at an outside facility and the toe worsened after this. He now has infection in the toe and osteomyelitis. Vascular surgery consulted for evaluation. [facility] Medical History Anxiety Asthma CAD (coronary artery disease) Chest pain Delayed wound healing Depression Diabetes mellitus DM2 (diabetes mellitus, type 2) Hallux limitus of right foot Hallux limitus of right foot Heart disease HTN (hypertension) Myocardial infarct Toe infection Type 2 diabetes mellitus with diabetic polyneuropathy Home Medications albuterol sulfate 1 - 2 puff INHALATION Q4H PRN PRN 09/17/20 [History Last Taken Unknown] aspirin 81 mg PO DAILY@0800 09/17/20 [History Last Taken 09/24/21 08:00] carvedilol 6.25 mg PO BID 09/17/20 [History Last Taken 09/24/21 08:00] clopidogrel 75 mg PO DAILY 09/17/20 [History Last Taken 09/24/21 08:00] fluticasone propionate 2 puff IH DAILY 09/17/20 [History Last Taken Unknown] glimepiride 8 mg PO DAILY 09/17/20 [History Last Taken 09/24/21 08:00] lisinopril 20 mg PO DAILY 09/17/20 [History Last Taken 09/24/21 08:00] metformin 1,000 mg PO BID 09/17/20 [History Last Taken 09/24/21 08:00] rosuvastatin 10 mg PO QHS 09/17/20 [History Last Taken 09/23/21] sertraline 100 mg PO DAILY 09/17/20 [History Last Taken Unknown] Januvia 100 mg PO DAILY 05/06/21 [History Last Taken 09/24/21 08:00] tramadol 50 mg PO Q6H 05/06/21 [History Last Taken Unknown] amoxicillin-pot clavulanate [Augmentin] 1 tab PO Q12H #80 tab 05/08/21 [Rx Last Taken 09/24/21 10:00] doxycycline hyclate 100 mg PO BID #80 cap 05/08/21 [Rx Last Taken Unknown] amlodipine 10 mg PO DAILY 07/10/21 [History Last Taken 09/24/21 10:00] bempedoic acid [Nexletol] 180 mg PO DAILY 07/10/21 [History Last Taken 09/24/21 08:00] cephalexin 500 mg PO BID 07/10/21 [History Last Taken 09/24/21 08:00] cilostazol 100 mg PO BID 07/10/21 [History Last Taken 09/24/21 08:00] ezetimibe 10 mg PO DAILY 07/10/21 [History Last Taken 09/24/21 08:00] ciprofloxacin HCl [Cipro] 500 mg PO BID 09/24/21 [History Last Taken 09/24/21 08:00] Allergy/AdvReac Type Severity Reaction Status Date / Time No Known Allergies Allergy Verified 09/24/21 10:24 Family History Other Diabetes Hypertension Surgical History History of coronary artery stent placement Hx of cardiac cath Social History Smoking Status: Never smoker alcohol intake: never substance use type: does not use ROS ROS Narrative all negative excpet hpi Physical Exam Narrative Patient awake alert oriented No apparent distress Afebrile vital signs stable HEENT: Normocephalic atraumatic Pupils equal Neck supple Was mucous membrane heart appears regular Lungs reported clear Chest nontender Abdomen soft Extremities palpable radial pulses Dressing intact right foot moves all extremities well x4 Lab / Micro Data Result Diagrams: 09/25/21 04:59 09/25/21 04:59 Labs: Laboratory Results - last 24 hr 09/24/21 11:30: WBC 10.8, RBC 4.41 L, Hgb 11.9 L, Hct 35.4 L, MCV 80.3, MCH 27.0, MCHC 33.6, RDW Std Deviation 36.0, RDW Coeff of Divya 12.5, Plt Count 267, MPV 10.0, Immature Gran % (Auto) 0.400, Neut % (Auto) 78.7 H, Lymph % (Auto) 12.8 L, [place] % (Auto) 6.1, Eos % (Auto) 1.7, Baso % (Auto) 0.3, Absolute Neuts (auto) 8.5 H, Absolute Lymphs (auto) 1.39, Nucleated RBC % 0 09/24/21 11:30: Sodium 138, Potassium 4.4, Chloride 109 H, Carbon Dioxide 23.0, Anion Gap 6, BUN 20 H, Creatinine 1.27, Estim Creat Clear Calc 58.35, Est GFR (MDRD) Af Amer 74, Est GFR (MDRD) Non-Af 61, BUN/Creatinine Ratio 15.7, Glucose 182 H, Calcium 9.1 09/24/21 11:30: Hemoglobin A1c 8.5 H 09/24/21 13:00: S.aureus Protein A PCR NEGATIVE, MRSA (PCR) Negative 09/24/21 17:34: POC Glucose 235 H 09/24/21 21:24: POC Glucose 209 H 09/25/21 04:59: WBC 8.8, RBC 4.17 L, Hgb 10.8 L, Hct 32.9 L, MCV 78.9 L, MCH 25.9 L, MCHC 32.8, RDW Std Deviation 35.9, RDW Coeff of Divya 12.6, Plt Count 259, MPV 9.9, Immature Gran % (Auto) 0.600, Neut % (Auto) 71.2 H, Lymph % (Auto) 18.6 L, [place] % (Auto) 6.8, Eos % (Auto) 2.7, Baso % (Auto) 0.1, Absolute Neuts (auto) 6.3, Absolute Lymphs (auto) 1.64, Nucleated RBC % 0 09/25/21 04:59: Sodium 136, Potassium 3.9, Chloride 104, Carbon Dioxide 25.0, Anion Gap 7, BUN 15, Creatinine 1.19, Estim Creat Clear Calc 62.27, Est GFR (MDRD) Af Amer 80, Est GFR (MDRD) Non-Af 66, BUN/Creatinine Ratio 12.6, Glucose 227 H, Calcium 8.5, Phosphorus 3.0, Total Bilirubin 0.30, AST 25, ALT 40, Alkaline Phosphatase 112, Total Protein 6.9, Albumin 3.3, Globulin 3.6, Albumin/Globulin Ratio 0.9 09/25/21 06:27: POC Glucose 216 H Micro: Microbiology 09/24/21 13:00 Wound - Toe Gram Stain - Final 09/24/21 13:00 Wound - Toe Wound Culture - Preliminary GNR Poss Pseudomonas sp
[2021-09-25 11:31] LABS: Bedside Glucose 193 mg/dL (70-110)
--- NOTE | 2021-09-25 12:18 | NURSING ---
Pt off of floor to surgery.
--- NOTE | 2021-09-25 13:30 | BON_PTH ---
PATIENT: ROSETTA STEWART LOC: MS3 U#:[id number] AGE/SX: 61/M ROOM: UT314 RE09/24/[address]: Dr. Kaitlin Ozuna, DO : 1960 BED: 1 DIS: 09/27/2021 SPEC #: [id number] RECD: 09/25/21 14:51 STATUS: LANCE REMitra #: [id number] GHASSAN: 09/25/21 13:[address]: Ty Caba DEPT: SURGICAL PATHOLOGY RECD BY: Mae Hays ENTERED: 09/26/21 11:42 SP TYPE: Bone OTHR DR: MD Dr. Nitin Elizabeth MD Dr. Jeanna Fascione, DPM Dr. Kaitlin Ozuna, Tissues: A - Toe, NOS B - Toe, NOS Procedures: Decalcification bone/plaque Surgery Specimen Level III Surgery Specimen Level IV HEADER OPERATION: Amputation first toe PRE-OP DIAGNOSIS: Osteomyelitis, peripheral artery disease TISSUE SUBMITTED: A ? Right first toe, B ? Clearance fragment first metatarsal, right MICROSCOPIC DIAGNOSIS A. Right first toe, amputation: Focal ulceration and associated acute inflammation. Underlying bone with acute osteomyelitis. B. Clearance fragment first metatarsal, right: A piece of bone with acute osteomyelitis. SJ:stefan 09/28/2021 MICROSCOPIC DESCRIPTION Slides are reviewed. GROSS DESCRIPTION A - Received in fixative is one container labeled with the patient's name and designated right first toe. The specimen consists of a toe with attached skin, bone, soft tissue and nail measuring 6.5 cm in length and 2.2 cm in average diameter. The lateral aspect of the toe contains an ulcer that is dark mccoy-black in color measuring 3.5 x 1.5 x 1 cm. The nail is dystrophic. The bone and soft tissue at margin of resection are grossly unremarkable. Also present free in the container is an irregular fragment of mccoy bone measuring 2 x 1.5 x 1 cm. Director Of Exhibits sections of the ulcer, soft tissue and underlying bone are submitted in two cassettes after decalcification. B - Received in fixative is one container labeled with the patient's name and designated clearance fragment first metatarsal, right. The specimen consists of a discoid fragment of mccoy bone measuring 2.2 x 1.5 x 0.2 cm. The specimen is totally submitted in one cassette after decalcification. / AM:stefan 09/26/2021 TC:2 CPT: 17823, 25751, 09488 x2
[2021-09-25] MEDS: Bupivacaine Mpf 0.5% 30 ML VIAL (14:15)
--- NOTE | 2021-09-25 14:42 | PCM.PN.HOSP ---
Subjective Subjective Patient was told by podiatry that he needed a right hallux with partial first ray amputation. Second opinion obtained as well and they agreed that that this was the appropriate surgical therapy as well. The patient was still contemplating whether or not he wanted to proceed this morning however he has now agreed to surgical intervention. I did discuss with him his depression however he was unwilling to open up at this time nor worried about his surgical issues. I told him we would readdress this tomorrow once a surgical has been completed. Objective Data Objective Data Vital Signs: Vital Signs Temp Pulse Resp BP Pulse Ox 97.5 F L 74 18 151/73 H 98 09/25/21 11:32 09/25/21 11:32 09/25/21 11:32 09/25/21 11:32 09/25/21 11:32 Oxygen Delivery Method Room Air Weight: 93.2 kg Body Mass Index (BMI) 31.2 Intake & Output: Intake and Output for Last 24 Hours 09/23/21 09/24/21 09/25/21 23:59 23:59 23:59 Intake Total 725 / 725 418.5 / 418.5 Balance 725 / 725 418.5 / 418.5 Lab / Micro Data Result Diagrams: 09/25/21 04:59 09/25/21 04:59 Labs: Laboratory Results - last 24 hr 09/24/21 13:00: S.aureus Protein A PCR NEGATIVE, MRSA (PCR) Negative 09/24/21 17:34: POC Glucose 235 H 09/24/21 21:24: POC Glucose 209 H 09/25/21 04:59: WBC 8.8, RBC 4.17 L, Hgb 10.8 L, Hct 32.9 L, MCV 78.9 L, MCH 25.9 L, MCHC 32.8, RDW Std Deviation 35.9, RDW Coeff of Divya 12.6, Plt Count 259, MPV 9.9, Immature Gran % (Auto) 0.600, Neut % (Auto) 71.2 H, Lymph % (Auto) 18.6 L, [place] % (Auto) 6.8, Eos % (Auto) 2.7, Baso % (Auto) 0.1, Absolute Neuts (auto) 6.3, Absolute Lymphs (auto) 1.64, Nucleated RBC % 0 09/25/21 04:59: Sodium 136, Potassium 3.9, Chloride 104, Carbon Dioxide 25.0, Anion Gap 7, BUN 15, Creatinine 1.19, Estim Creat Clear Calc 62.27, Est GFR (MDRD) Af Amer 80, Est GFR (MDRD) Non-Af 66, BUN/Creatinine Ratio 12.6, Glucose 227 H, Calcium 8.5, Phosphorus 3.0, Total Bilirubin 0.30, AST 25, ALT 40, Alkaline Phosphatase 112, Total Protein 6.9, Albumin 3.3, Globulin 3.6, Albumin/Globulin Ratio 0.9 09/25/21 06:27: POC Glucose 216 H 09/25/21 11:23: POC Glucose 193 H Micro: Microbiology 09/24/21 13:00 Wound - Toe Gram Stain - Final 09/24/21 13:00 Wound - Toe Wound Culture - Preliminary GNR Poss Pseudomonas sp Physical Exam Const alert, oriented x3, no apparent distress and well nourished Constitutional Narrative: Obese, very anxious upper middle-aged white male sitting up in bed, nursing at bedside, nontoxic General Appearance: cooperative Exam Limitations: no limitations Nutritional Appearance: obese HEENT normocephalic, head/scalp atraumatic, hearing grossly normal bilaterally and moist oral mucous membranes Head and Scalp: normocephalic Eyes PERRL, EOMs intact bilaterally and conjunctivae normal Neck no lymphadenopathy, supple and no JVD Resp normal respiratory effort, no retractions, no use of accessory muscles and clear to auscultation bilaterally Auscultation: Negative for crackles, rales, rhonchi or wheezes Cardio regular rate, regular rhythm, S1 normal heart sound, S2 normal heart sound, no rub, no gallops, no clicks and no JVD Cardio Narrative: 2 out of 6 systolic murmur loudest at right upper sternal border GI normal to inspection, nondistended, normoactive bowel sounds, soft to palpation, non-tender and non-distended; Negative for hepatosplenomegaly Extremity no clubbing, cyanosis or edema Extremity Narrative: Diminished pedal pulses bilaterally Skin No no rashes or lesions noted, No no wounds, skin turgor normal, no jaundice, no petechiae and no mottling Skin Narrative: Dressing on right foot is clean and dry Neuro oriented x3, moves all extremities and no focal motor deficits Neuro Narrative: Right foot is hypersensitive Sensorium / Orientation: awake and alert Speech: speech normal Motor Exam: strength 5/5 throughout Psych Mood & Affect: depressed and anxious Assessment & Plan Assessment/Plan (1) Osteomyelitis: (2) PAD (peripheral artery disease): PLAN: Cellulitis/abscess/osteomyelitis right foot -Wound cultures growing gram-negative aidan at this time -MRSA PCR to wound is negative -We will continue broad-spectrum antibiotics with vancomycin and Zosyn for now but suspect I will be able to narrow tomorrow -MRI done this morning by podiatry shows OM -Continue Ultram for pain -OR this afternoon for partial amputation [id number] -Post recent hemoglobin A1c was 7.5 from 2020--> currently 8.5 -Hold home oral agents loading min,, and glimepiride -Increase Lantus 16 units subcu at at bedtime -Sliding scale insulin moderate dose -Accu-Cheks before meals and at bedtime Chronic microcytic anemia -Hemoglobin stable -Check iron studies -No signs of acute blood loss -Repeat CBC in a.m. Peripheral vascular disease -Case was discussed with Dr. Wells by podiatry and he agreed with amputation -Patient had recent intervention done by vascular surgery in 2020 related to his foot wounds -Continue cilostazol -Continue aspirin -Continue Plavix Hyperlipidemia -Continue on statin Hypertension -Continue carvedilol -Continue lisinopril Asthma -Continue as needed albuterol inhaler CAD -Patient with history of stents -Continue aspirin/Plavix -Check preoperative EKG Anxiety/depression -Continue home sertraline -Patient may benefit from the addition of BuSpar--Arrow will discuss with patient tomorrow -Per social work in the emergency department the patient expressed some suicidal ideation--> I did attempt to talk with him more about this today but he was unable and to open up at this time as he was more focused on his foot surgical intervention at this time--> will try to readdress tomorrow and see if we get patient open up about this -We will need outpatient behavioral health follow-up DVT prophylaxis -Lovenox -SCDs Charges/Coding Visit Charges Inpatient E&M: [address] [facility] L[facility]
--- NOTE | 2021-09-25 14:45 | RAD_ITS ---
STUDY: X-RAY - RIGHT FOOT CLINICAL: Male, 61 years old. Post op TECHNIQUE: 3 view(s) of the foot. COMPARISON: 05/06/2021 FINDINGS/ RAD/Foot min 3 Views IMPRESSION: Status post stabilization of the first digit distal to the first MTP joint. Remainder the visualized osseous structures are unremarkable. Calcific densities are noted in the space between the first and second metatarsals. Vascular calcifications are noted. Electronically Signed: Selvin Tamayo MD at 21:43 EST ,
--- NOTE | 2021-09-25 15:14 | OP.PCM_ITS ---
Report of Operation Date of Procedure: 09/25/21 Pre-Operative Diagnosis: Ostemyelitis right 1st toe and sesamoids, abscess right foot Post-Operative Diagnosis: Same Surgery/Procedure Performed:: 1st toe amputation, resection of sesamoids, incision and drainage all right foot Surgeon: Ty Caba vehicle upholsterer: Dr. Breaux Type of Anesthesia: Local MAC Specimen's removed: 1. Culture of abscess from right foot 2. Right 1st toe and sesamoids sent to pathology, also bone culture right 1st toe sent to microbiology 3. Clearance fragment from right 1st metatarsal head, sent to pathology and microbiology Estimated Blood Loss (mL): 1mL Description of Procedure: Indications: The patient is a 61 year old male with multiple medical problems including PAD, diabetes, peripheral neuropathy who presented with necrotic right 1st toe foot infection with abscess. MRI showed osteomyelitis to the distal and proximal phalanx of the right 1st toe and sesamoids. We discussed the options with the patient in great detail, and patient elected to proceed with the procedure. Dr. Calix was consulted for second opinion and he agreed with this plan. This was discussed with patient in detail, reviewed the possible benefits vs risks. He was advised the risks include, but are not limited to pain, further infections, need for further surgery, nonhealing, delay healing, scarring, poor cosmetic result, numbness, weakness, loss of function, complex regional pain syndrome, blood clots, loss of limb, loss of life. They expressed understanding and agreement, he was able to repeat back, all questions were answered. The consent form was reviewed and it was freely signed. No guarantees were given nor implied. Operative Procedure: The patient was brought into the operating room, and was place on the operating room table in the supine position. He was carefully secured to the operating room table with a safely belt around his waist. A time out was performed, the patient was properly identified and the surgical plan was confirmed. He was already on IV antibiotics. A well padded pneumatic tourniquet was placed around the right ankle. The patient received MAC anesthesia per the anesthesiologist, then a total of 10mL of 0.5% Marcaine plain was given as right 1st ray block after the skin was cleansed with 70% isopropyl alcohol. The right foot was scrubbed, prepped and draped in the usual aseptic fashion. The right foot was elevated and the right ankle pneumatic tourniquet was inflated to 250mmHg. There was noted to be significant necrosis down to bone of the right 1st toe with surrounding cellulitis, there was noted to be significant edema and cellulitis with infection, there was abscess to the plantar 1st metatarsal distally. Using a 15 scalpel blade the right 1st toe was amputated and disarticulated from the 1st metatasal phalanx joint. The bone of the 1st toe was soft, nonviable, necrotic. The abscess to the plantar foot was incised and drained using a 15 blade, there was significant puruence noted. This was cultured. The sesamoids were noted to be nonviable, soft, with areas of yellow/black and garrett discoloration consistent with osteomyelitis. There was also purulence in the soft tissues of the toe with acute and chronic abscess formation. The 1st metatarsal head did appear to be viable, white and healthy appearing, and a bone culture was obtained and sent to microbiology and pathology as a clearance fragment. All remaining tissues appeared to be healthy and viable, free of any infection. The site was flushed out with copious amounts of normal saline solution. The site was packed with betadine soln wet to dry gauze dressing with overlying kerlix, and belem dressing. The pneumatic tourniquet was deflated, and there was immediate return of good vascular flow to the left foot, with normal temperature gradient and CFT < 2 seconds to the amputation site and to all remaining toes. Total tourniquet time was 23 minutes. Patient tolerated the above procedure well with no complications. He was transferred back to the floor with vital signs stable and in good condition. He will be followed as inpatient. Post op xrays were ordered of the right foot - No weightbearing left foot, keep left foot elevated. He will be followed as an infection. Grafts/Implants Used: None Complications None
[2021-09-25 15:34] LABS: Ferritin 60 ng/mL (26-388); Iron 34 ug/dL (65-175); Iron Binding Capacity,Total 291 ug/dL (250-450); PERCENT IRON SATURATION 11.7 % (15.0-55.0)
[2021-09-25 17:01] LABS: Bedside Glucose 165 mg/dL (70-110)
[2021-09-25] MEDS: traMADol 50 MG Tablet PO (19:48)
[2021-09-25] MEDS: Cilostazol 50 MG Tablet 100 MG PO (21:32)
[2021-09-25] MEDS: Carvedilol 6.25 MG Tablet PO (21:32)
[2021-09-25] MEDS: Atorvastatin Calcium 20 MG Tablet PO (21:33)
[2021-09-25] MEDS: Acetaminophen 325 MG Tablet 650 MG PO (21:33)
[2021-09-25 21:45] LABS: Bedside Glucose 263 mg/dL (70-110)
[2021-09-26 02:06] VITALS: BP 129/61; PULSE 74; RESP 16; TEMP 37.3; O2SAT 94
[2021-09-26] MEDS: Insulin Lispro 100 UNIT/ML INSULN.PEN SC ×3 (06:21→15:53)
[2021-09-26 06:31] LABS: Bedside Glucose 242 mg/dL (70-110)
[2021-09-26 06:33] LABS: Absolute Lymphocyte Count 1.25 X10^3/uL (0.83-4.51); Absolute Neutrophil Count 6.4 X10^3/uL (2.0-7.7); Basophil# 0.03 X10^3/uL; Basophil% 0.3 % (0-1); Eosinophil# 0.24 X10^3/uL; Eosinophils% 2.8 % (0-5); Hemoglobin 11.3 g/dL (13.0-16.5); Lymphocyte # 1.25 X10^3/ul (0.83-4.51); Lymphocyte % 14.6 % (19-41); Mean Corp Hgb Conc 33.2 g/dL (32-36); Mean Corpuscular Hgb 26.3 pg (27.0-32.0); Mean Corpuscular Volume 79.1 fL (80-94); Mean Platelet Vol. 9.6 fl (6.2-12.0); Monocyte# 0.63 X10^3/uL; Monocyte% 7.3 % (0-10); NRBC Flagged by Analyzer 0 % (0-5); Neutrophil # 6.39 X10^3/uL (2.7-7.7); Neutrophil % 74.4 % (47-70); Platelet Count 250 K/mm3 (150-450); RBC Distribution Width CV 12.5 % (11.6-14.6); RBC Distribution Width SD 35.7 fl (35.1-43.9); White Blood Count 8.6 K/mm3 (4.4-11.0)
[2021-09-26 06:55] LABS: Anion Gap 6 (5-15); BUN 14 mg/dL (7-18); BUN/Creat Ratio 10.5 RATIO (10-20); Calcium,Total 8.8 mg/dL (8.5-10.1); Chloride 103 mmol/L (98-107); Creatinine, Serum 1.33 mg/dL (0.70-1.30); EST Glomerular Filtration Rate 58 mL/min (>60); Est Glom Filt Rate - Afr Amer 70 mL/min (>60); Estimated Creatinine Clearance 55.71 ml/min; Glucose 235 mg/dL (74-106); Sodium Level 136 mmol/L (136-145)
[2021-09-26 07:01] LABS: Vancomycin, Trough Level 9.3 ug/mL (5.0-15.0)
[2021-09-26] MEDS: traMADol 50 MG Tablet PO ×3 (07:08→20:12)
[2021-09-26] MEDS: Acetaminophen 325 MG Tablet 650 MG PO ×2 (07:09→14:08)
--- NOTE | 2021-09-26 07:47 | PN_ITS ---
Subjective Subjective This 61-year-old male was seen status post right hallux amputation with incision and drainage of abscess to plantar right foot. Patient notes some pain to the surgical site 5 out of 10 today. Patient notes resolution of nausea also denies any fever, chills, vomiting, chest pain, calf pain, shortness of breath. P atient voiding urine, passing gas. Patient no other complaints overnight. Objective Data Objective Data Vital Signs: Vital Signs Temp Pulse Resp BP Pulse Ox 99.1 F 74 16 129/61 H 94 09/26/21 02:06 09/26/21 02:06 09/26/21 02:06 09/26/21 02:06 09/26/21 02:06 Oxygen Delivery Method Room Air Weight: 93.2 kg Body Mass Index (BMI) 31.2 Intake & Output: Intake and Output for Last 24 Hours 09/24/21 09/25/21 09/26/21 23:59 23:59 23:59 Intake Total 725 / 725 683.5 / 683.5 50 / 50 Output Total 300 / 300 600 / 600 Balance 725 / 725 383.5 / 383.5 -550 / -550 Lab / Micro Data Result Diagrams: 09/26/21 06:10 09/26/21 06:10 Labs: Laboratory Results - last 24 hr 09/25/21 04:59: Iron 34 L, TIBC 291, Iron Saturation 11.7 L, Ferritin 60 09/25/21 11:23: POC Glucose 193 H 09/25/21 16:22: POC Glucose 165 H 09/25/21 21:27: POC Glucose 263 H 09/26/21 06:10: Vancomycin Trough 9.3 09/26/21 06:10: WBC 8.6, RBC 4.30 L, Hgb 11.3 L, Hct 34.0 L, MCV 79.1 L, MCH 26.3 L, MCHC 33.2, RDW Std Deviation 35.7, RDW Coeff of Divya 12.5, Plt Count 250, MPV 9.6, Immature Gran % (Auto) 0.600, Neut % (Auto) 74.4 H, Lymph % (Auto) 14.6 L, [place] % (Auto) 7.3, Eos % (Auto) 2.8, Baso % (Auto) 0.3, Absolute Neuts (auto) 6.4, Absolute Lymphs (auto) 1.25, Nucleated RBC % 0 09/26/21 06:10: Sodium 136, Potassium 4.0, Chloride 103, Carbon Dioxide 27.0, Anion Gap 6, BUN 14, Creatinine 1.33 H, Estim Creat Clear Calc 55.71, Est GFR (MDRD) Af Amer 70, Est GFR (MDRD) Non-Af 58 L, BUN/Creatinine Ratio 10.5, Glucose 235 H, Calcium 8.8 09/26/21 06:20: POC Glucose 242 H Micro: Microbiology 09/24/21 13:00 Wound - Toe Gram Stain - Final 09/24/21 13:00 Wound - Toe Wound Culture - Preliminary GNR Poss Pseudomonas sp Radiography Diagnostic Testing: Radiology Impression Foot X-Ray 09/25/21 14:45 IMPRESSION: Status post stabilization of the first digit distal to the first MTP joint. Remainder the visualized osseous structures are unremarkable. Calcific densities are noted in the space between the first and second metatarsals. Vascular calcifications are noted. Electronically Signed: Selvin Tamayo MD at 21:43 EST , Physical Exam Const alert, oriented x3 and no apparent distress Extremity Extremity Narrative: Neurovascular status unchanged today no pain with calf squeeze. Pain limited to surgical site. Erythema, warmth and edema resolving t o hallux amputation site. Also incision is well approximated with intact sutures. There is a plantar incision which probes down the level of the first metatarsal head, no residual signs of purulence or necrosis at this time. No residual fluctuance or crepitus. Assessment & Plan Assessment/Plan (1) Osteomyelitis: (2) Ulcer of right foot with necrosis of bone: (3) PAD (peripheral artery disease): PLAN: Evaluation performed. Reviewed diagnostic data. Patient has no leukocytosis at this time is vitally stable. Recommend reorder of CRP/procalcitonin to evaluate inflammatory markers to ensure infection resolution. Objectively the surgical site demonstrates resolving cellulitis with no residual purulence. We will continue to flush and pack the plantar incision daily. Incision site packed with iodoform dressed dorsal incision with Xeroform dry sterile dressing and light compression Patient will maintain nonweightbearing status. No further surgical debridement planned at this time we will continue to follow daily.
--- NOTE | 2021-09-26 07:49 | WOUNDNOTE ---
wound photo: right foot
--- NOTE | 2021-09-26 07:50 | WOUNDNOTE ---
wound photo: right foot
--- NOTE | 2021-09-26 07:50 | WOUNDNOTE ---
wound photo: right foot
[2021-09-26 08:05] VITALS: O2SAT 94
[2021-09-26] MEDS: Clopidogrel Bisulfate 75 MG Tablet PO (08:35)
[2021-09-26] MEDS: Aspirin 81 MG TAB.CHEW PO (08:35)
[2021-09-26] MEDS: Lisinopril 20 MG Tablet PO (08:35)
[2021-09-26] MEDS: Enoxaparin 40 MG/0.4 ML Syringe SC (08:35)
[2021-09-26] MEDS: Ezetimibe 10 MG Tablet PO (08:35)
[2021-09-26] MEDS: Cilostazol 50 MG Tablet 100 MG PO ×2 (08:35→20:09)
[2021-09-26] MEDS: Glucerna Shake 120 ML LIQUID PO ×3 (08:35→17:46)
[2021-09-26] MEDS: amLODIPine 10 MG Tablet PO (08:35)
[2021-09-26] MEDS: Carvedilol 6.25 MG Tablet PO ×2 (08:35→20:09)
[2021-09-26] MEDS: Sertraline 100 MG Tablet PO (08:40)
[2021-09-26 08:50] VITALS: BP 142/80; PULSE 72; RESP 18; TEMP 36.9; O2SAT 94
[2021-09-26 12:01] LABS: Bedside Glucose 289 mg/dL (70-110)
--- NOTE | 2021-09-26 13:19 | PCM.RX.CS ---
Consult Pharmacy has been consulted to manage selected antiobiotic: Vancomycin Type of Consult: Follow-up Suspected Infection: Skin/Soft tissue, Osteomyelitis Prior Doses of Antibiotics Received/Current Regimen: Has been on 750mg iv q12h. Labs: Sodium 136 mmol/L (136-145) 09/26/21 06:10 Potassium 4.0 mmol/L (3.5-5.1) 09/26/21 06:10 Chloride 103 mmol/L (98-107) 09/26/21 06:10 Carbon Dioxide 27.0 mmol/L (21.0-32.0) 09/26/21 06:10 Anion Gap 6 (5-15) 09/26/21 06:10 BUN 14 mg/dL (7-18) 09/26/21 06:10 Creatinine 1.33 mg/dL (0.70-1.30) H 09/26/21 06:10 Est GFR (MDRD) Af Amer 70 mL/min (>60) 09/26/21 06:10 Est GFR (MDRD) Non-Af 58 mL/min (>60) L 09/26/21 06:10 BUN/Creatinine Ratio 10.5 RATIO (10-20) 09/26/21 06:10 Glucose 235 mg/dL (74-106) H 09/26/21 06:10 Vancomycin Trough 9.3 ug/mL (5.0-15.0) 09/26/21 06:10 Microbiology: Microbiology 09/25/21 14:30 Wound Abcess - Right Foot Wound Culture - Preliminary GNR Poss Pseudomonas sp 09/25/21 14:30 Biopsy - Other Wound Culture - Preliminary No growth-Final to follow 09/25/21 14:30 Amputation - Toe Wound Culture - Preliminary No growth-Final to follow 09/24/21 13:00 Wound - Toe Gram Stain - Final 09/24/21 13:00 Wound - Toe Wound Culture - Final Pseudomonas aeroginosa Weight used for dosin.2 kg Estimated Creatinine Clearance: 56 ml/min Goal Trough: 15-20 mcg/mL Pharmacy Plan for Drug Dosing: Trough today 9.3 with goal of 15-20 mcg/ml. Renal function reviewed. Will increase dose to 1250mg iv q12h. Another trough has been ordered for before 4th dose of this new dosage schedule. Pharmacy Service will continue to monitor and adjust dosing as required. Follow-Up Labs: Trough Vancomycin - 2.18.22@0630 before 0700 dose
[2021-09-26 14:02] VITALS: BP 153/68; PULSE 74; RESP 16; TEMP 37; O2SAT 94
--- NOTE | 2021-09-26 15:43 | PCM.PN.HOSP ---
Subjective Subjective Patient seems to be in better spirits today. He is more talkative and interactive. He does like to talk about his cars and is asking when he will be able to go home. I did discuss with him he may not need to go home on antibiotics if podiatry feels that they clear the infection with surgical debridement. Objective Data Objective Data Vital Signs: Vital Signs Temp Pulse Resp BP Pulse Ox 98.6 F 74 16 153/68 H 94 09/26/21 14:02 09/26/21 14:02 09/26/21 14:02 09/26/21 14:02 09/26/21 14:02 Oxygen Delivery Method Room Air Weight: 93.2 kg Body Mass Index (BMI) 31.2 Intake & Output: Intake and Output for Last 24 Hours 09/24/21 09/25/21 09/26/21 23:59 23:59 23:59 Intake Total 725 / 725 683.5 / 683.5 590.5 / 590.5 Output Total 300 / 300 800 / 800 Balance 725 / 725 383.5 / 383.5 -209.5 / -209.5 Lab / Micro Data Result Diagrams: 09/26/21 06:10 09/26/21 06:10 Labs: Laboratory Results - last 24 hr 09/25/21 16:22: POC Glucose 165 H 09/25/21 21:27: POC Glucose 263 H 09/26/21 06:10: Vancomycin Trough 9.3 09/26/21 06:10: WBC 8.6, RBC 4.30 L, Hgb 11.3 L, Hct 34.0 L, MCV 79.1 L, MCH 26.3 L, MCHC 33.2, RDW Std Deviation 35.7, RDW Coeff of Divya 12.5, Plt Count 250, MPV 9.6, Immature Gran % (Auto) 0.600, Neut % (Auto) 74.4 H, Lymph % (Auto) 14.6 L, [place] % (Auto) 7.3, Eos % (Auto) 2.8, Baso % (Auto) 0.3, Absolute Neuts (auto) 6.4, Absolute Lymphs (auto) 1.25, Nucleated RBC % 0 09/26/21 06:10: Sodium 136, Potassium 4.0, Chloride 103, Carbon Dioxide 27.0, Anion Gap 6, BUN 14, Creatinine 1.33 H, Estim Creat Clear Calc 55.71, Est GFR (MDRD) Af Amer 70, Est GFR (MDRD) Non-Af 58 L, BUN/Creatinine Ratio 10.5, Glucose 235 H, Calcium 8.8 09/26/21 06:20: POC Glucose 242 H 09/26/21 11:46: POC Glucose 289 H Micro: Microbiology 09/24/21 13:00 Wound - Toe Gram Stain - Final 09/24/21 13:00 Wound - Toe Wound Culture - Final Pseudomonas aeroginosa 09/25/21 14:30 Wound Abcess - Right Foot Gram Stain - Final 09/25/21 14:30 Wound Abcess - Right Foot Wound Culture - Preliminary GNR Poss Pseudomonas sp 09/25/21 14:30 Biopsy - Other Gram Stain - Final 09/25/21 14:30 Biopsy - Other Wound Culture - Preliminary No growth-Final to follow 09/25/21 14:30 Amputation - Toe Gram Stain - Final 09/25/21 14:30 Amputation - Toe Wound Culture - Preliminary No growth-Final to follow Radiography Diagnostic Testing: Radiology Impression Foot X-Ray 09/25/21 14:45 IMPRESSION: Status post stabilization of the first digit distal to the first MTP joint. Remainder the visualized osseous structures are unremarkable. Calcific densities are noted in the space between the first and second metatarsals. Vascular calcifications are noted. Electronically Signed: Selvin Tamayo MD at 21:43 EST , Physical Exam Const alert, oriented x3, no apparent distress and well nourished Constitutional Narrative: Obese, upper middle-aged white male sitting up in bed, nursing at bedside, nontoxic, less anxious today General Appearance: cooperative Exam Limitations: no limitations Nutritional Appearance: obese HEENT normocephalic, head/scalp atraumatic, hearing grossly normal bilaterally and moist oral mucous membranes Head and Scalp: normocephalic Eyes Eyes Narrative: No scleral icterus Resp normal respiratory effort, no retractions, no use of accessory muscles and clear to auscultation bilaterally Auscultation: Negative for crackles, rales, rhonchi or wheezes Cardio regular rate, regular rhythm, S1 normal heart sound, S2 normal heart sound, no rub, no gallops, no clicks and no JVD Cardio Narrative: 2 out of 6 systolic murmur loudest at right upper sternal border GI normal to inspection, nondistended, normoactive bowel sounds, soft to palpation, non-tender and non-distended; Negative for hepatosplenomegaly Extremity no clubbing, cyanosis or edema Extremity Narrative: Diminished pedal pulses bilaterally Skin No no rashes or lesions noted, No no wounds, skin turgor normal, no jaundice, no petechiae and no mottling Skin Narrative: Postoperative dressing on right foot without any drainage noted Neuro oriented x3, moves all extremities and no focal motor deficits Neuro Narrative: Right foot is hypersensitive Sensorium / Orientation: awake and alert Speech: speech normal Motor Exam: strength 5/5 throughout Assessment & Plan Assessment/Plan (1) Osteomyelitis: (2) PAD (peripheral artery disease): PLAN: Cellulitis/abscess/osteomyelitis right foot -Wound cultures growing gram-negative aidan at this time--> possibly Pseudomonas -Wound cultures are pending -If podiatry feels that there is surgical debridement completely cleared infection we may be able to discharge without antibiotics -MRSA PCR to wound is negative -We will continue broad-spectrum antibiotics with vancomycin and Zosyn -Continue Ultram for pain -Wound management per podiatry [id number] -Post recent hemoglobin A1c was 7.5 from 2020--> currently 8.5 -Hold home oral agents loading min,, and glimepiride -Increase Lantus 20 units subcu at at bedtime -Sliding scale insulin moderate dose -Accu-Cheks before meals and at bedtime Chronic microcytic anemia -Hemoglobin stable -Iron studies suggest some iron deficiency -We will start oral iron -No signs of acute blood loss -Hemoglobin is stable -Repeat CBC in a.m. Peripheral vascular disease -Case was discussed with Dr. Wells by podiatry and he agreed with amputation -Patient had recent intervention done by vascular surgery in 2020 related to his foot wounds -Continue cilostazol -Continue aspirin -Continue Plavix Hyperlipidemia -Continue on statin Hypertension -Continue carvedilol -Continue lisinopril Asthma -Continue as needed albuterol inhaler CAD -Patient with history of stents -Continue aspirin/Plavix Anxiety/depression -Continue home sertraline -Patient may benefit from the addition of BuSpar--Arrow will discuss with patient tomorrow -Per social work in the emergency department the patient expressed some suicidal ideation--> patient still not really interested in opening up about his depression -We will need outpatient behavioral health follow-up--> discussed with social work and case management today DVT prophylaxis -Lovenox -SCDs Charges/Coding Visit Charges Inpatient E&M: 18742 Subs Hosp L2
[2021-09-26 16:15] LABS: Bedside Glucose 315 mg/dL (70-110)
--- NOTE | 2021-09-26 17:30 | CM.ED ---
Social Work Consult: Mental Health Referral source: Dr. Ozuna Chief Complaint: been depressed. Marital/Social History: Single. Living Situation: Lives alone. Transportation: Drives self. Support/Resources: Reports limited resources/supports in the community. Reports only support as patient mother but she is older. Patient reports to have been helping patient mother lately. Patient does report to have a sister that lives next to patient mother as another option for taking care of patient mother. Education/Employment: Retired in December 2020. Mental Health Treatment/History: Diagnosed with Depression and Anxiety. Currently taking medication to manage mental health. Patient denies any history of inpatient psychiatric placement. Triggers/Stressors: Toe amputated this week. Patient reports to have tried to keep patient toe for the past year. Patient voicing frustration with medical team and messing things up. Patient does admit to poor health choices as well. Coping Skills: Patient enjoys talking about cars and doing to car shows. Risk to Self/Others: Patient reports to have thought about it when referring to completing suicide. Patient reports to have thought about going out to the shed and hanging myself. Patient states just tired of all this when referring to medical status. Patient reports to have had suicidal thoughts for the past year my toes has not been good for awhile. This social worker clinical exploring patient intent. Patient states I am not going to kill myself. Patient states I have been like this for awhile in reference to mental health status. Patient denies homicidal thoughts, plans, intents or violence against self/others. Mental Status Exam: A&Ox3 Appearance/General Behavior: Clean. Calm. Mood/Affect: Appropriate. Did express multiple frustrations with current health situation and loosing my toe. Communication Pattern: Responds to questions. Initiates conversation. Thought Process: Denies hallucinations, paranoia or delusions. Judgement: Fair Assessment: Met with patient in room. Introduced self and social worker clinical role. Patient remembering this social worker clinical from interaction in the ER earlier this week. Patient now present with a calm and engaged affect. Patient wanting to speak with this social worker clinical and thanked this social worker clinical often for listening. Patient with limited support in community. This social worker clinical exploring patient plans from the hospital. Patient reports not sure. Patient unsure of how patient will get car home, as patient drove to the ER or how patient will get to doctors appointments. Patient reports that medical team is currently communicating to patient that patient will not be able to drive. Patient states frustrating with current limitations but states often will just keep taking it one day at a time. Patient states to be looking forward to car shows this summer that patient participates in as a hobby. Patient voicing multiple frustrations with current health situation throughout conversation but able to maintain appropriate control of emotions throughout. Patient did state at one point you aren't going to lock me up somewhere now are you? This social worker clinical voiced concerns of patient safety due to patients report of suicidal thoughts and to have contemplated how patient would compete suicide. Patient states multiple times I am not planning to kill myself, just discouraged. This social worker clinical broached conversation of the behavioral health program at [facility] as a possible support for patient in the community to assist patient with managing mental health and establishing meaning/purpose. Patient not currently open to referral. This social worker clinical provided patient with list of counseling agencies as well as information on [facility] Behavioral Health program. This social worker clinical counseled patient on lethal means, patient does report to have fire arms in the home but I don't use them. Patient not currently open to having firearms removed. Patient again thanked this social worker clinical for the time. Active support and listening provided throughout assessment. Patient is agreeable to further social work follow up for support/encouragement. This social worker clinical updated nursing staff on above information. Social Work to continue to follow. Sneha VALADEZ, WILBER
[2021-09-26] MEDS: Ferrous Sulfate 325 MG Tablet PO (17:46)
[2021-09-26] MEDS: 0.9% Saline Lock 10 ML Syringe IV (17:53)
[2021-09-26 20:01] VITALS: BP 156/71; PULSE 68; RESP 18; TEMP 37.5; O2SAT 93
[2021-09-26] MEDS: Atorvastatin Calcium 20 MG Tablet PO (20:09)
[2021-09-26 21:57] LABS: Bedside Glucose 256 mg/dL (70-110)
[2021-09-27 02:14] VITALS: BP 131/61; PULSE 76; RESP 18; TEMP 37.1; O2SAT 92
[2021-09-27 02:15] VITALS: O2SAT 92
[2021-09-27] MEDS: traMADol 50 MG Tablet PO (02:21)
[2021-09-27] MEDS: Acetaminophen 325 MG Tablet 650 MG PO (04:26)
[2021-09-27] MEDS: Insulin Lispro 100 UNIT/ML INSULN.PEN SC ×2 (06:30→12:32)
[2021-09-27 06:50] LABS: Bedside Glucose 212 mg/dL (70-110)
[2021-09-27 07:07] LABS: Anion Gap 5 (5-15); BUN 17 mg/dL (7-18); BUN/Creat Ratio 12.1 RATIO (10-20); Calcium,Total 8.6 mg/dL (8.5-10.1); Chloride 104 mmol/L (98-107); Creatinine, Serum 1.41 mg/dL (0.70-1.30); EST Glomerular Filtration Rate 54 mL/min (>60); Est Glom Filt Rate - Afr Amer 65 mL/min (>60); Estimated Creatinine Clearance 52.55 ml/min; Glucose 202 mg/dL (74-106); Potassium 3.8 mmol/L (3.5-5.1); Sodium Level 136 mmol/L (136-145)
[2021-09-27 07:30] VITALS: O2SAT 92
[2021-09-27 08:44] VITALS: BP 148/69; PULSE 74; RESP 18; TEMP 36.5; O2SAT 96
[2021-09-27] MEDS: Enoxaparin 40 MG/0.4 ML Syringe SC (09:32)
[2021-09-27] MEDS: Clopidogrel Bisulfate 75 MG Tablet PO (09:33)
[2021-09-27] MEDS: Carvedilol 6.25 MG Tablet PO (09:33)
[2021-09-27] MEDS: Aspirin 81 MG TAB.CHEW PO (09:33)
[2021-09-27] MEDS: Lisinopril 20 MG Tablet PO (09:33)
[2021-09-27] MEDS: Cilostazol 50 MG Tablet 100 MG PO (09:33)
[2021-09-27] MEDS: Ezetimibe 10 MG Tablet PO (09:33)
[2021-09-27] MEDS: amLODIPine 10 MG Tablet PO (09:33)
[2021-09-27] MEDS: Sertraline 100 MG Tablet PO (09:34)
[2021-09-27] MEDS: Glucerna Shake 120 ML LIQUID PO (09:34)
--- NOTE | 2021-09-27 09:36 | PCM.PROGNOTE ---
Subjective Subjective This 61 male was seen today status post right foot hallux amputation with I&D plantar foot, patient is 2 days postop. Patient is voiding urine and passing gas. Patient has mild pain limited surgical site predominantly with dressing changes. Patient denies any fever, chills, nausea, vomiting, chest pain, calf pain, shortness of breath. Patient has no changes overnight, refuses recovery and extended care facility or nursing facility. Objective Data Objective Data Vital Signs: Vital Signs Temp Pulse Resp BP Pulse Ox 97.7 F L 74 18 148/69 H 96 09/27/21 08:44 09/27/21 08:44 09/27/21 08:44 09/27/21 08:44 09/27/21 08:44 Oxygen Flow Rate (L/min) 2 Oxygen Delivery Method Nasal Cannula Weight: 93.2 kg Body Mass Index (BMI) 31.2 Intake & Output: Intake and Output for Last 24 Hours 09/25/21 09/26/21 09/27/21 23:59 23:59 23:59 Intake Total 683.5 / 683.5 915.5 / 915.5 50 / 50 Output Total 300 / 300 1050 / 1050 400 / 400 Balance 383.5 / 383.5 -134.5 / -134.5 -350 / -350 Lab / Micro Data Result Diagrams: 09/26/21 06:10 09/27/21 05:50 Labs: Laboratory Results - last 24 hr 09/26/21 11:46: POC Glucose 289 H 09/26/21 15:50: POC Glucose 315 H 09/26/21 20:06: POC Glucose 256 H 09/27/21 05:50: Sodium 136, Potassium 3.8, Chloride 104, Carbon Dioxide 27.0, Anion Gap 5, BUN 17, Creatinine 1.41 H, Estim Creat Clear Calc 52.55, Est GFR (MDRD) Af Amer 65, Est GFR (MDRD) Non-Af 54 L, BUN/Creatinine Ratio 12.1, Glucose 202 H, Calcium 8.6 09/27/21 06:29: POC Glucose 212 H Micro: Microbiology 09/25/21 14:30 Wound Abcess - Right Foot Gram Stain - Final 09/25/21 14:30 Wound Abcess - Right Foot Wound Culture - Final Pseudomonas aeroginosa 09/24/21 13:00 Wound - Toe Gram Stain - Final 09/24/21 13:00 Wound - Toe Wound Culture - Final Pseudomonas aeroginosa 09/25/21 14:30 Biopsy - Other Gram Stain - Final 09/25/21 14:30 Biopsy - Other Wound Culture - Preliminary No growth-Final to follow 09/25/21 14:30 Amputation - Toe Gram Stain - Final 09/25/21 14:30 Amputation - Toe Wound Culture - Preliminary No growth-Final to follow Physical Exam Const alert, oriented x3 and no apparent distress Extremity Extremity Narrative: neurovascular status unchanged today no pain with calf squeeze. Pain limited to surgical site. Erythema, warmth and edema continuing to resolve at hallux amputation site. Also incision is well approximated with intact sutures. There is a plantar incision which probes down the level of the first metatarsal head, no residual signs of purulence or necrosis at this time. No residual fluctuance or crepitus. Viability of plantar medial flap looks improved as that there is better coloration to the flap from previous examination. Assessment & Plan Assessment/Plan (1) Osteomyelitis: (2) Ulcer of right foot with necrosis of bone: (3) PAD (peripheral artery disease): PLAN: Evaluation performed. Reviewed diagnostic data. No leukocytosis, patient infection is clinically resolving. CRP/PCT reordered to ensure inflammatory response to infection resolving. Vital signs stable. Intraoperative cultures demonstrate Pseudomonas sensitive to fluoroquinolones; however, clearance bone cultures negative at this time. Due to clearance fragment being negative for any infection, patient may be able to go on p.o. antibiotics. Infectious disease consulted, awaiting recommendations. Recommend physical therapy consult, patient will need may need to maintain a nonweightbearing status and should be evaluated prior to discharge and dispense any appropriate DME in order to maintain this nonweightbearing status on the right lower extremity. We will likely plan to DC with home health care dressing changes, patient would benefit from a wound VAC as this would decrease frequency of dressing changes, allow rapid granulation of incision site and prevent any reaccumulation of purulent drainage. The patient lives at home and has no one to help him perform any dressing changes. Upon discharge we will follow the patient up weekly. Will await physical therapy and infectious disease evaluation.
--- NOTE | 2021-09-27 10:32 | CON.PCM.ID_ITS ---
Assessment & Plan Assessment/Plan (1) Osteomyelitis: PLAN: Now s/p OR 09/25/21 with R 1st toe amp and I&D by Dr. Caba. Wound cx 09/11 with MRSE and PsA. Cxs here with PsA. Clearance cx neg so far. On zosyn, will add doxy for MRSE coverage. If clearance cx and path are neg for residual infection, plan will be for 10 more days po doxy 100mg bid and cipro 500mg bid at discharge. If (+) for residual infection, plan on 6 weeks total abx. covid vaccine x3. QTC is 447 here. Will follow, thank you. (2) PAD (peripheral artery disease): HPI Consult Data Date of Consult: 09/27/21 HPI Narrative HPI Narrative: ROSETTA STEWART, is a 61 M who presented with 2-3 weeks of worsening R foot pain/swelling/redness after surgery 08/[address] Oleary. Issues with foot ulcers for over a year. No fever, no n/v/d. Was started on doxy/cipro as outpt. Continued to worsen, came to ED, seen by podiatry, started on vanc/zosyn, taken to OR 09/[address] Caba for toe amp and I&D. Vanc was stopped. Feeling better, pain controlled. Covid vaccine x3. Full ROS performed and neg except as noted above. [facility] Medical History Anxiety Asthma CAD (coronary artery disease) Chest pain Delayed wound healing Depression Diabetes mellitus DM2 (diabetes mellitus, type 2) Hallux limitus of right foot Hallux limitus of right foot Heart disease HTN (hypertension) Myocardial infarct Toe infection Type 2 diabetes mellitus with diabetic polyneuropathy Home Medications albuterol sulfate 1 - 2 puff INHALATION Q4H PRN PRN 09/17/20 [History Last Taken Unknown] aspirin 81 mg PO DAILY@0800 09/17/20 [History Last Taken 09/24/21 08:00] carvedilol 6.25 mg PO BID 09/17/20 [History Last Taken 09/24/21 08:00] clopidogrel 75 mg PO DAILY 09/17/20 [History Last Taken 09/24/21 08:00] fluticasone propionate 2 puff IH DAILY 09/17/20 [History Last Taken Unknown] glimepiride 8 mg PO DAILY 09/17/20 [History Last Taken 09/24/21 08:00] lisinopril 20 mg PO DAILY 09/17/20 [History Last Taken 09/24/21 08:00] metformin 1,000 mg PO BID 09/17/20 [History Last Taken 09/24/21 08:00] rosuvastatin 10 mg PO QHS 09/17/20 [History Last Taken 09/23/21] sertraline 100 mg PO DAILY 09/17/20 [History Last Taken Unknown] Januvia 100 mg PO DAILY 05/06/21 [History Last Taken 09/24/21 08:00] tramadol 50 mg PO Q6H 05/06/21 [History Last Taken Unknown] amoxicillin-pot clavulanate [Augmentin] 1 tab PO Q12H #80 tab 05/08/21 [Rx Last Taken 09/24/21 10:00] doxycycline hyclate 100 mg PO BID #80 cap 05/08/21 [Rx Last Taken Unknown] amlodipine 10 mg PO DAILY 07/10/21 [History Last Taken 09/24/21 10:00] bempedoic acid [Nexletol] 180 mg PO DAILY 07/10/21 [History Last Taken 09/24/21 08:00] cephalexin 500 mg PO BID 07/10/21 [History Last Taken 09/24/21 08:00] cilostazol 100 mg PO BID 07/10/21 [History Last Taken 09/24/21 08:00] ezetimibe 10 mg PO DAILY 07/10/21 [History Last Taken 09/24/21 08:00] ciprofloxacin HCl [Cipro] 500 mg PO BID 09/24/21 [History Last Taken 09/24/21 08:00] Allergy/AdvReac Type Severity Reaction Status Date / Time No Known Allergies Allergy Verified 09/24/21 10:24 Family History Other Diabetes Hypertension Surgical History History of coronary artery stent placement Hx of cardiac cath Social History Smoking Status: Never smoker alcohol intake: never substance use type: does not use Physical Exam Const alert, oriented x3 and no apparent distress General Appearance: cooperative Exam Limitations: no limitations HEENT normocephalic and head/scalp atraumatic Eyes PERRL and EOMs intact bilaterally Neck supple and No nodes Resp normal air movement and clear to auscultation bilaterally Cardio regular rate and regular rhythm GI soft to palpation, non-tender and non-distended Extremity no clubbing, cyanosis or edema Skin Skin Narrative: R foot wrapped, reviewed photos Neuro CN's II-XII intact bilaterally Lab / Micro Data Result Diagrams: 09/26/21 06:10 09/27/21 05:50 Labs: Laboratory Results - last 24 hr 09/26/21 11:46: POC Glucose 289 H 09/26/21 15:50: POC Glucose 315 H 09/26/21 20:06: POC Glucose 256 H 09/27/21 05:50: Sodium 136, Potassium 3.8, Chloride 104, Carbon Dioxide 27.0, Anion Gap 5, BUN 17, Creatinine 1.41 H, Estim Creat Clear Calc 52.55, Est GFR (MDRD) Af Amer 65, Est GFR (MDRD) Non-Af 54 L, BUN/Creatinine Ratio 12.1, Glucose 202 H, Calcium 8.6 09/27/21 05:50: C-React Prot Ext Range 69.90 H 09/27/21 06:29: POC Glucose 212 H Micro: Microbiology 09/25/21 14:30 Biopsy - Other Gram Stain - Final 09/25/21 14:30 Biopsy - Other Wound Culture - Preliminary GNR Poss Pseudomonas sp 09/25/21 14:30 Biopsy - Other Anaerobic Culture - Preliminary No growth in 48 hours. 09/25/21 14:30 Amputation - Toe Gram Stain - Final 09/25/21 14:30 Amputation - Toe Wound Culture - Preliminary GNR Poss Pseudomonas sp Staphylococcus species 09/25/21 14:30 Wound Abcess - Right Foot Gram Stain - Final 09/25/21 14:30 Wound Abcess - Right Foot Wound Culture - Final Pseudomonas aeroginosa 09/24/21 13:00 Wound - Toe Gram Stain - Final 09/24/21 13:00 Wound - Toe Wound Culture - Final Pseudomonas aeroginosa
[2021-09-27 10:33] LABS: Procalcitonin 0.18 ng/mL (0.00-0.09)
--- NOTE | 2021-09-27 10:53 | WOUNDNOTE ---
wound photo: right foot
--- NOTE | 2021-09-27 10:55 | WOUNDNOTE ---
wound photo: right foot
--- NOTE | 2021-09-27 10:55 | WOUNDNOTE ---
wound photo: right foot
--- NOTE | 2021-09-27 11:12 | NURSING ---
Pt states that physical therapy never came to see him and feels like he needs crutches to go home with b/c the walker does not help. This nurse spoke with Keisha Hoover in P.T and Keisha will assess pt today and is aware that his plan is to go home.
[2021-09-27] MEDS: Ferrous Sulfate 325 MG Tablet PO (11:16)
[2021-09-27] MEDS: Doxycycline 100 MG CAPSULE PO (11:16)
--- NOTE | 2021-09-27 11:27 | NURSING ---
Savanna Garza of [place] nursing director informed this nurse that pt's blood sugar is 272 and pt refused lunch. Not sure why pt refused lunch but this nurse told Kayla to go ahead and give the scheduled Novolog sliding scale since his blood sugar is so high and then recheck in one hour to monitor it. Pt also told Kayla that he felt warm, Kayla reported to me that temp was 99.1 . will continue to monitor.
--- NOTE | 2021-09-27 11:30 | NURSING ---
This nurse is aware of Morning Vital Signs that were taken around 0830 this morning by Savanna Garza of [place] nursing technician.
[2021-09-27 11:33] VITALS: TEMP 37.3
--- NOTE | 2021-09-27 11:36 | WOUNDNOTE ---
home VAC pending approval at this time. all paperwork sent to [facility].
[2021-09-27 11:46] LABS: Bedside Glucose 272 mg/dL (70-110)
--- NOTE | 2021-09-27 12:43 | WOUNDNOTE ---
Home wound VAC approved. Case management working on home health care for VAC changes. pt will most likely be discharged home today. Discussed with Dr Ozuna and REJI Guevara CM.
--- NOTE | 2021-09-27 12:55 | CASEMGMT ---
Addendum entered by Paola Laws 09/27/21 14:35: Received tc from Suraj at [facility] who now states they are not able to accept pt d/t staffing. TC to Damaris at [facility], referral made. Pt states when wound vac no longer required he would be able to dress the wound himself. He states he has done wound care for a year now. Spoke with wound care nurse regarding this as well. Referral faxed at this time. Will await acceptance. Addendum entered by Paola Laws 09/27/21 13:33: Spoke with regarding crutches, requesting therapy to complete another session for training and if safe, ok to dc on crutches. If not, pt will need a walker. Notified therapy of the need for further education. Into pt room to make aware. Pt upset and requesting to speak to physician. Notified hospitalist and took phone to room. Pt discussed with hospitalist. Pt then handed phone back to REJI PHILLIPS. Pt had abruptly ended the conversation. He stated to order the walker. Pt has no preference on [employer]. Faxed script to [phone] and emailed Jodi for need of walker. Original Note: Pt to dc with wound vac and po atb. REJI PHILLIPS in to pt room. Patient was provided a list of [facility] providers including quality and resource use data and consistent with the patient?s preferred geographic region, medical needs, and insurance network. Pt states he has no preference really but listed [employer] and [employer]. Made pt aware that he will also need a FWW. Pt states it's crutches or nothing. Discussed that he did not do well with therapy with the crutches. He states that this was his first time using them so he will not be perfect. He states it should be his choice on whether he wants crutches or a walker. Made him aware that he needs to be safely dc'd to home. Pt was unhappy with this answer and used profanity. REJI PHILLIPS made referral to Suraj myers [facility]. They will plan for SOC on Friday. Referral faxed.
--- NOTE | 2021-09-27 13:01 | DS.PCM_ITS ---
Providers Date of Admission: 09/24/21 Date of Discharge: 09/27/21 Primary Care Physician: Dr. 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 Routine Comment: Consult: Podiatry Routine Consulting Provider: Natali Orosco Reason for Consult: OM R Great Toe EMERGENT Consult: No MD Notified: Yes Date Notified: 09/24/21 Time Notified: 12:07 Method of Notification: Verbal Consult: Vascular Surgery Routine Consulting Provider: Adrien Wells Reason for Consult: PKTY-DM foot wound with PAD EMERGENT Consult: No Notified: Yes Date Notified: 09/24/21 Time Notified: 18:33 Method of Notification: Answering Service 09/27/21 07:09 Consult: Infectious Disease Routine Consulting Provider: Sunday Pollock Reason for Consult: OM EMERGENT Consult: No Notified: Yes Date Notified: 09/27/21 Time Notified: 08:57 Method of Notification: Text Reason For Visit: R TOE OM Diagnosis Discharge Diagnosis (1) Osteomyelitis: Status: Acute Code(s): M86.9 - Osteomyelitis, unspecified (2) PAD (peripheral artery disease): Status: Acute Code(s): I73.9 - Peripheral vascular disease, unspecified Medications at Discharge Home Medications albuterol sulfate 1 - 2 puff INHALATION Q4H PRN PRN 09/17/20 aspirin 81 mg PO DAILY@0800 09/17/20 carvedilol 6.25 mg PO BID 09/17/20 clopidogrel 75 mg PO DAILY 09/17/20 fluticasone propionate 2 puff IH DAILY 09/17/20 glimepiride 8 mg PO DAILY 09/17/20 lisinopril 20 mg PO DAILY 09/17/20 metformin 1,000 mg PO BID 09/17/20 rosuvastatin 10 mg PO QHS 09/17/20 sertraline 100 mg PO DAILY 09/17/20 Januvia 100 mg PO DAILY 05/06/21 tramadol 50 mg PO Q6H 05/06/21 Nexletol 180 mg PO DAILY 07/10/21 amlodipine 10 mg PO DAILY 07/10/21 cilostazol 100 mg PO BID 07/10/21 ezetimibe 10 mg PO DAILY 07/10/21 ciprofloxacin HCl [Cipro] 500 mg PO BID #20 tab 02/17/22 doxycycline monohydrate 100 mg PO BID #20 cap 09/27/21 ferrous sulfate 140 mg PO DAILY #30 tab 09/27/21 Hospital Course Operations - (First toe amputation/resection of sesamoids/I&D) Summary of Care Provided Minutes Spent on Discharge: 38 Hospital Course: Mr. Garcia is a 61-year-old white male who presented to the emergency department was [facility] on 09/24/2021 with a chief complaint of a right foot wound that has been nonhealing. The patient indicates he has been dealing with this for approximately 1 year and has had extensive treatment. He has been seeing Dr. Orosco more recently from podiatry and his foot looked on evaluation at the day of admission and she ordered an outpatient MRI which has been performed. The MRI showed probable osteomyelitis of the first digit and the tibial and fibular sesamoid bones as well as an ill-defined fluid collections on the plantar surface of the first MTP in the first proximal phalanx that was consistent with a developing abscess. He had been on oral antibiotics as an outpatient. He also has significant vascular disease and has followed with Dr. Wells for nonhealing foot ulcers. He underwent some vascular intervention on 09/25/2020 with regards to this. On admission his vital signs were stable. His CBC showed a mild stable chronic anemia with a normal white count but a left shift was noted and he had neutrophilia. His BMP was unremarkable and his serum glucose on his BMP was 182. He was admitted to the medical floor and placed on vancomycin and Zosyn and a consult to podiatry was made. Recommendation for toe amputation with possible amputation of part of his first ray was made. Initially the patient was somewhat resistant and a second opinion was obtained and both a second opinion and vascular surgery agreed that this was the best course of action with regards to his right toe. The patient finally agreed for surgical intervention and went to the OR on 09/25/2021 where he underwent a first toe amputation/resection of his sesamoids and an I&D of the right foot. Specimen cultures and bone cultures were sent. His initial wound cultures grew out sensitive Pseudomonas and infectious disease was consulted as podiatry did not feel that they probably completely resected the infected bone in its entirety. A hemoglobin A1c was obtained and found to be 8.5. He had a microcytic anemia for which iron studies were performed and found to be fairly consistent with iron deficiency. He was started on oral iron at discharge. We recommended he follow-up with his outpatient physician for further evaluation and treatment of his DM-2 to improve glycemic control. ID evaluated the patient on 09/27/2021 and recommended outpatient ciprofloxacin and doxycycline to be completed for course of 2 weeks and then the patient be reevaluated at that time. He was seen by physical therapy as the recommendations for weightbearing are nonweightbearing and he would need an assistive device. The patient was hopeful that he would be able to go on crutches however he demonstrated that he was unsafe on crutches and a walker was recommended. The patient was quite irritated and felt that he should be able to go home with whichever assistive device he felt most appropriate however I explained to him that it was our job to keep him safe and to prevent him from falling after discharge and reiterated the fact that he is to be nonweightbearing on that foot. He was viewed on a monitor ambulating on his right foot independently while clinicians were out of the room. I did reiterate to him during our conversation with regards to his assist device how important was for him to be stringent on following recommendations as he was at increased risk for further infection and worsening of his current situation if he was not. He voiced understanding however was extremely agitated and noted he was very upset about his care and felt that he was in halfway. He was discharged home with a walker, oral antibiotics were sent to the pharmacy, and he was recommended to follow-up with infectious disease in 2 weeks and podiatry as recommended. It was also recommended that he follow-up with his primary care physician in 1 to 2 weeks. Again it was reiterated multiple times how important it is for the patient to follow recommendations with regards to driving, weightbearing status, and completing oral antibiotics and follow-up care with regards to his foot and the risk of further infection and potential for further amputations. The patient was also found to be significantly depressed during his hospitalization and admitted to suicidal thoughts but no organized plan. We offered behavioral health follow-up and offered to make an appointment for him all of which she deferred. Discharge diagnoses: Osteomyelitis of the right foot with abscess and cellulitis [id number] Chronic microcytic anemia peripheral vascular disease Hyperlipidemia Hypertension Asthma Coronary artery disease Anxiety Depression Physical Exam Const alert, oriented x3, no apparent distress and well nourished Constitutional Narrative: Obese, upper middle-aged white male sitting up in bed, appears comfortable, nontoxic, nursing at bedside General Appearance: cooperative, comfortable, well kempt and well developed Orientation / Consciousness: awake Exam Limitations: no limitations Nutritional Appearance: obese HEENT normocephalic, head/scalp atraumatic, hearing grossly normal bilaterally and moist oral mucous membranes Eyes PERRL, EOMs intact bilaterally and conjunctivae normal Eyes Narrative: No scleral icterus Neck no lymphadenopathy, supple and no JVD Neck Narrative: Trachea midline, neck is short and thick, no thyroid enlargement noted on exam Resp normal respiratory effort, no retractions, no use of accessory muscles and clear to auscultation bilaterally Auscultation: Negative for crackles, rales, rhonchi or wheezes Cardio regular rate, regular rhythm, S1 normal heart sound, S2 normal heart sound, no rub, no gallops, no clicks and no JVD Cardio Narrative: 2 out of 6 systolic murmur loudest at right upper sternal border GI normal to inspection, nondistended, normoactive bowel sounds, soft to palpation, non-tender and non-distended; Negative for hepatosplenomegaly Extremity no clubbing, cyanosis or edema Extremity Narrative: Diminished pedal pulses bilaterally Skin No no rashes or lesions noted, No no wounds, skin turgor normal, no jaundice, no petechiae and no mottling Skin Narrative: Postoperative dressing on right foot without any drainage noted Neuro oriented x3, moves all extremities and no focal motor deficits Neuro Narrative: Right foot is hypersensitive Sensorium / Orientation: awake and alert Speech: speech normal Motor Exam: strength 5/5 throughout Psych Psych Narrative: Mood is little bit flatter today and patient appears more depressed Mood & Affect: depressed Weight / BMI Weight Weight: 93.2 kg Body Mass Index (BMI) 31.2 ABG / Lab / Microbiology Data Result Diagrams: 09/26/21 06:10 09/27/21 05:50 Laboratory: Laboratory Results - last 24 hr 09/26/21 06:10: Procalcitonin 0.18 H 09/26/21 15:50: POC Glucose 315 H 09/26/21 20:06: POC Glucose 256 H 09/27/21 05:50: Sodium 136, Potassium 3.8, Chloride 104, Carbon Dioxide 27.0, Anion Gap 5, BUN 17, Creatinine 1.41 H, Estim Creat Clear Calc 52.55, Est GFR (MDRD) Af Amer 65, Est GFR (MDRD) Non-Af 54 L, BUN/Creatinine Ratio 12.1, Glucose 202 H, Calcium 8.6 09/27/21 05:50: C-React Prot Ext Range 69.90 H 09/27/21 06:29: POC Glucose 212 H 09/27/21 11:11: POC Glucose 272 H Microbiology: Microbiology 09/25/21 14:30 Wound Abcess - Right Foot Gram Stain - Final 09/25/21 14:30 Wound Abcess - Right Foot Wound Culture - Final Pseudomonas aeroginosa 09/25/21 14:30 Wound Abcess - Right Foot Anaerobic Culture - Preliminary Checking for anaerobes, further studies to follow. 09/25/21 14:30 Amputation - Toe Gram Stain - Final 09/25/21 14:30 Amputation - Toe Wound Culture - Preliminary GNR Poss Pseudomonas sp Staphylococcus species 09/25/21 14:30 Amputation - Toe Anaerobic Culture - Preliminary Checking for anaerobes, further studies to follow. 09/25/21 14:30 Biopsy - Other Gram Stain - Final 09/25/21 14:30 Biopsy - Other Wound Culture - Preliminary GNR Poss Pseudomonas sp 09/25/21 14:30 Biopsy - Other Anaerobic Culture - Preliminary No growth in 48 hours. 09/24/21 13:00 Wound - Toe Gram Stain - Final 09/24/21 13:00 Wound - Toe Wound Culture - Final Pseudomonas aeroginosa D/C Instructions Discharge Diet: Low fat / Low cholesterol and 1800 Calorie Control Diet Weight Bearing Status: No weight bearing (R LE) Meaningful Use Info Meaningful Use Diagnoses (Choose all that apply): None applicable Discharge Plan Admission Admit Date/Time: 09/24/21 12:00 Primary Reason for Your Visit: R foot infection Attending Provider: Kaitlin Ozuna Primary Care Provider: Nitin Malagon Consulting Providers: Natali Orosco ; Adrien Wells ; Sunday Pollock Instructions Additional Instructions / Restrictions: 1. Please do not put weight on your R foot 2. use a walker to walk 3. Please complete all antibiotics as ordered 4.Follow up as recommended below Discharge Orders/Prescriptions Prescriptions: New doxycycline monohydrate 100 mg Capsule 100 mg PO BID Qty: 20 RF: 0 ciprofloxacin HCl [Cipro] 500 mg tablet 500 mg PO BID Qty: 20 RF: 0 ferrous sulfate 140 mg (45 mg iron) tablet extended release 140 mg PO DAILY Qty: 30 RF: 0 Continued fluticasone propionate 50 MCG blister with device 2 puff IH DAILY RF: 0 carvedilol 6.25 MG tablet 6.25 mg PO BID RF: 0 lisinopril 20 MG tablet 20 mg PO DAILY RF: 0 sertraline 100 MG tablet 100 mg PO DAILY RF: 0 clopidogrel 75 MG tablet 75 mg PO DAILY RF: 0 metformin 1,000 MG tablet 1,000 mg PO BID RF: 0 glimepiride 4 MG tablet 8 mg PO DAILY RF: 0 aspirin 81 MG tablet,chewable 81 mg PO DAILY@0800 RF: 0 albuterol sulfate 1 INHALER inhaler 1 - 2 puff INHALATION Q4H PRN PRN (Reason: Wheezing) RF: 0 rosuvastatin 10 MG tablet 10 mg PO QHS RF: 0 tramadol 50 mg tablet 50 mg PO Q6H RF: 0 Januvia 100 mg tablet 100 mg PO DAILY RF: 0 cilostazol 100 mg Tablet 100 mg PO BID RF: 0 amlodipine 10 mg Tablet 10 mg PO DAILY RF: 0 ezetimibe 10 mg Tablet 10 mg PO DAILY RF: 0 Nexletol 180 mg Tablet 180 mg PO DAILY RF: 0 Discontinued doxycycline hyclate 100 mg capsule 100 mg PO BID Qty: 80 RF: 0 amoxicillin-pot clavulanate [Augmentin] 875-125 mg tablet 1 tab PO Q12H Qty: 80 RF: 0 cephalexin 500 mg Tablet 500 mg PO BID RF: 0 ciprofloxacin HCl [Cipro] 500 mg Tablet 500 mg PO BID RF: 0 Referrals / Follow Up: Nitin Malagon MD [Primary Care Provider] - Within 2 Weeks Natali Orosco DPM [STAFF PHYSICIAN] - In 1 Week Sunday Pollock MD [STAFF PHYSICIAN] - Within 2 Weeks Disposition Disposition (needs filled in before D/C Order can be placed): Home Health Service Charges/Coding Visit Charges Inpatient E&M: 10000 Disch Hosp
--- NOTE | 2021-09-27 13:02 | CASEMGMT ---
Social Work Note SW attempted to meet with pt to continue discussion of Mental Health. SW introduced self and role at [facility]. RN entered room as pt's wound vac was unplugged. RN providing education on staying NWB to prevent infection. Pt becoming agitated. Pt then looked at this worker and said you can leave too. SW tried to explain that this worker needs to make sure pt is going to be safe at home. Pt states you can leave. SW asked pt if this worker could do anything for him, make appointments, provide resources etc and pt again states I asked you to leave, why are you not leaving. SW then left room. Neyda Sue COASTAL/HARBOR DEFENSE OFFICER, BRIAR CUTTER
--- NOTE | 2021-09-27 13:09 | NURSING ---
Pt was up on his own getting dressed, not using crutches or a walker. Pt unhooked himself from the wound vac and did not re-connect wound vac back. When pt was up getting dressed he was caught putting full weight on his Rt foot despite multiple staff members educating him not to do that. This nurse had a 5min discussion with Mr. Garcia stating the reason and importance he needs to be non weight bearing on RLE. Pt states it is staffs fault that we did not come when the call light was on to come help him and thats why he was up by himself. Pt got agitated with this nurse and wanted me out of the room. You can leave now.
--- NOTE | 2021-09-27 14:15 | CASEMGMT ---
Social Work Note SW back in to speak with pt to continue discussion of Mental Health and Depression. Pt denied any plans to kill himself. Pt states that the depression and suicidal thoughts are up and down. Pt began complaining about [facility] and that he will never return to this hospital. SW offered support to pt. Pt apologized to this worker for earlier incident. Pt states that he is just frustrated and again not happy with the care he has received at [facility]. SW again discussed outpatient Mental Health services to pt and pt denied. From previous visits, this worker had made a referral to [facility] for a follow up outreach phone call. SW spoke with pt about this. Pt states yeah they called me last time. SW asked pt if this worker could have [facility] call him again after discharge from [facility] and pt states no. SW spoke with pt about completing a safety plan and pt denied completing a safety plan. Pt denied additional needs or concerns at this time. Neyda Sue PAPER COUNTER, FOCUSER
--- NOTE | 2021-09-27 14:35 | WOUNDNOTE ---
Pt has already been up walking on foot in the room and disconnected the wound VAC to put pants on. patient has been reminded numerous times that he is not to be walking on the foot and the wound VAC needs to remain hooked up at all times. just awaiting an accepting home health agency. will switch patient to home VAC prior to discharge home.
--- NOTE | 2021-09-27 14:45 | CASEMGMT ---
Social Work Note SW back in again to speak with pt. SW apologized to pt that this worker doesn't want to sound repetitive but spoke with pt about how thoughts/feelings can change daily. Pt denied any current intent or plans to carry out method of killing self. Pt states I can't guarantee it in the future days. SW asked pt about plans/intent at this time currently. Pt denied any current intent or plans to carry out method of killing self stating not at this moment. BARBRA informed pt that he needs to complete a safety plan with this worker then before he can discharge home. Pt completed safety plan with this worker. Original provided to pt and copy on pt's chart. BARBRA placed a call to [facility] and spoke with Nolvia in crisis and arranged a follow up outreach phone call with pt. Nolvia states she scheduled the follow up phone call. BARBRA spoke with RN BARBRA PHILLIPS added to [facility]. BARBRA will call SW at [facility] tomorrow to provide handoff regarding pt. At this time, Pt denied any current intent or plans to carry out method of killing self. Plan: Home with [facility] with BARBRA added for [facility]. [facility] to reach out to pt for follow up outreach phone call. Neyda Sue ASBESTOS SIDING MECHANIC, LEAD BURNER
--- NOTE | 2021-09-27 15:59 | WOUNDNOTE ---
Pt continues to be up on foot. reminded patient AGAIN he is to keep weight off his foot. Pt states I know. switched patient over to the home VAC. reviewed alarms, etc. with patient. proof of delivery form signed and faxed to [facility]. pt called and started arguing on the phone with billing. unable to ask pt if he has further questions. pt cursing and yelling at the billing person on the phone.
--- NOTE | 2021-09-27 16:25 | NURSING ---
Pt refused for this nurse to get discharge vitals and refused scheduled meds and for this nurse to check his blood sugar before leaving.
--- NOTE | 2021-09-28 10:28 | CASEMGMT ---
Addendum entered by Paola Laws 09/28/21 15:30: Received notification from Naa at [facility], they will accept pt for SN and SOCIAL SERVICES DIRECTOR. Made aware that pt was sent home with safety plan. Addendum entered by Paola Laws 09/28/21 11:49: Received tc back from Naa at [facility] asking if wound vac could be changed on Friday. TC to Dr. Orosco's office, spoke with Danette, and they do not want the vac to wait that long. TC back to Naa to make aware. They are still seeing if able to accept. Original Note: Received a tc from Damaris at [facility] stating they now cannot accept pt due to staffing. Made her aware pt was dc'd home with a wound vac and a safety plan for their follow up. She states they cannot accept. TC to [facility] Naa intake to see if able to accept. Awaiting call back.
--- NOTE | 2021-09-28 16:03 | CASEMGMT ---
Social Work Note SW updated that pt's HHC is now arranged through [facility] and SW was added. BARBRA placed a call to [facility] RESIDENTIAL SALES CONSULTANT and provided handoff report on pt. Neyda Sue SYSTEMS DEVELOPER, RESIDENTIAL SALES CONSULTANT
== END 2021-09-27 16:34 | disposition home health service (06) | DRG 617 ==
LOC: ED 11:53 → MS3 16:10
PROVIDERS: Podiatrist; Admitting Provider Internal Medicine; Emergency Provider Emergency Medicine; PCP Family Medicine; Visit Provider Internal Medicine
PROC: 0Y6P0Z0 Detachment at Right 1st Toe, Complete, Open Approach (ICD-10-PCS; principal; 2021-09-25 13:15)
DX: E11.621 Type 2 diabetes mellitus with foot ulcer (principal); L03.115 Cellulitis of right lower limb; M86.671 Other chronic osteomyelitis, right ankle and foot; Z16.23 Resistance to quinolones and fluoroquinolones; L02.611 Cutaneous abscess of right foot; L97.514 Non-pressure chronic ulcer of other part of right foot with necrosis of bone; E11.51 Type 2 diabetes mellitus with diabetic peripheral angiopathy without gangrene; B95.7 Other staphylococcus as the cause of diseases classified elsewhere; E11.65 Type 2 diabetes mellitus with hyperglycemia; E11.42 Type 2 diabetes mellitus with diabetic polyneuropathy; E11.69 Type 2 diabetes mellitus with other specified complication; B96.5 Pseudomonas (aeruginosa) (mallei) (pseudomallei) as the cause of diseases classified elsewhere; D50.9 Iron deficiency anemia, unspecified; E78.5 Hyperlipidemia, unspecified; I10 Essential (primary) hypertension; I25.10 Atherosclerotic heart disease of native coronary artery without angina pectoris; J45.909 Unspecified asthma, uncomplicated; F41.9 Anxiety disorder, unspecified; I25.2 Old myocardial infarction; F32.A Depression, unspecified; E66.9 Obesity, unspecified; Z68.31 Body mass index [BMI] 31.0-31.9, adult; Z79.02 Long term (current) use of antithrombotics/antiplatelets; Z79.82 Long term (current) use of aspirin; Z79.84 Long term (current) use of oral hypoglycemic drugs; Z79.899 Other long term (current) drug therapy
CPT/HCPCS: 36415; 73630; 80048; 80053; 80202; 82728; 82962; 83036; 83540; 83550; 84100; 84145; 85025; 86140; 87015; 87070; 87075; 87077; 87102; 87116; 87176; 87184; 87186; 87205; 87206; 87640; 88304; 88305; 88311; 93005; 93926; 97162; 97802; 99251; 99285; J7050; J7120; A4216; G0463; J2405

== ENCOUNTER 2021-10-08 10:58 | Outpatient (CLI) | payer BC, SELFPAY ==
[2021-10-08 10:56] LABS: Absolute Lymphocyte Count 1.63 X10^3/uL (0.83-4.51); Basophil# 0.03 X10^3/uL; Basophil% 0.4 % (0-1); Eosinophil# 0.38 X10^3/uL; Eosinophils% 4.4 % (0-5); Hematocrit 37.1 % (40-54); Hemoglobin 12.3 g/dL (13.0-16.5); Lymphocyte # 1.63 X10^3/ul (0.83-4.51); Mean Corp Hgb Conc 33.2 g/dL (32-36); Mean Corpuscular Hgb 26.5 pg (27.0-32.0); Mean Corpuscular Volume 79.8 fL (80-94); Mean Platelet Vol. 9.8 fl (6.2-12.0); Monocyte# 0.46 X10^3/uL; Monocyte% 5.4 % (0-10); NRBC Flagged by Analyzer 0 % (0-5); Neutrophil # 6.03 X10^3/uL (2.7-7.7); Neutrophil % 70.3 % (47-70); Platelet Count 230 K/mm3 (150-450); RBC Distribution Width SD 36.9 fl (35.1-43.9); Red Blood Count 4.65 M/mm3 (4.6-6.2); White Blood Count 8.6 K/mm3 (4.4-11.0)
[2021-10-08 11:34] LABS: ALB/GLOB Ratio 1.1 RATIO (0.9-2.4); AST(SGOT) 27 U/L (15-37); Alanine Aminotransfer ALT/SGPT 38 U/L (16-61); Albumin, Serum 3.9 g/dL (3.2-5.0); Alkaline Phosphatase 108 U/L (45-117); Anion Gap 6 (5-15); BUN 14 mg/dL (7-18); BUN/Creat Ratio 11.6 RATIO (10-20); Calcium,Total 9.4 mg/dL (8.5-10.1); Chloride 108 mmol/L (98-107); Creatinine, Serum 1.21 mg/dL (0.70-1.30); EST Glomerular Filtration Rate 64 mL/min (>60); Est Glom Filt Rate - Afr Amer 78 mL/min (>60); Globulin 3.7 g/dL (2.2-4.2); Glucose 100 mg/dL (74-106); Potassium 4.4 mmol/L (3.5-5.1); Protein, Total 7.6 g/dL (6.4-8.2); Sodium Level 138 mmol/L (136-145)
== END 2021-10-08 23:59 | disposition home or self-care (01) ==
LOC: LABSPEC 10:59
PROVIDERS: PCP Family Medicine; Referring Provider Podiatrist; Visit Provider Podiatrist
DX: M86.9 Osteomyelitis, unspecified (principal)
CPT/HCPCS: 80053; 85025

== ENCOUNTER 2021-10-18 10:10 | Outpatient (CLI) | payer BC, SELFPAY ==
[2021-10-18 12:17] LABS: Absolute Lymphocyte Count 1.64 X10^3/uL (0.83-4.51); Basophil# 0.04 X10^3/uL; Basophil% 0.4 % (0-1); Eosinophil# 0.27 X10^3/uL; Eosinophils% 2.8 % (0-5); Hematocrit 38.3 % (40-54); Hemoglobin 12.8 g/dL (13.0-16.5); Lymphocyte # 1.64 X10^3/ul (0.83-4.51); Lymphocyte % 17.2 % (19-41); Mean Corp Hgb Conc 33.4 g/dL (32-36); Mean Corpuscular Hgb 26.3 pg (27.0-32.0); Mean Corpuscular Volume 78.8 fL (80-94); Mean Platelet Vol. 10.2 fl (6.2-12.0); Monocyte# 0.55 X10^3/uL; Monocyte% 5.8 % (0-10); NRBC Flagged by Analyzer 0 % (0-5); Neutrophil # 6.97 X10^3/uL (2.7-7.7); Neutrophil % 73.2 % (47-70); Platelet Count 253 K/mm3 (150-450); RBC Distribution Width CV 13.3 % (11.6-14.6); RBC Distribution Width SD 37.6 fl (35.1-43.9); Red Blood Count 4.86 M/mm3 (4.6-6.2); White Blood Count 9.5 K/mm3 (4.4-11.0)
[2021-10-18 12:53] LABS: ALB/GLOB Ratio 1.1 RATIO (0.9-2.4); AST(SGOT) 26 U/L (15-37); Alanine Aminotransfer ALT/SGPT 43 U/L (16-61); Albumin, Serum 4.1 g/dL (3.2-5.0); Alkaline Phosphatase 106 U/L (45-117); Anion Gap 8 (5-15); BUN 20 mg/dL (7-18); BUN/Creat Ratio 14.7 RATIO (10-20); Calcium,Total 10.1 mg/dL (8.5-10.1); Chloride 107 mmol/L (98-107); Creatinine, Serum 1.36 mg/dL (0.70-1.30); EST Glomerular Filtration Rate 56 mL/min (>60); Est Glom Filt Rate - Afr Amer 68 mL/min (>60); Globulin 3.6 g/dL (2.2-4.2); Glucose 158 mg/dL (74-106); Potassium 4.4 mmol/L (3.5-5.1); Protein, Total 7.7 g/dL (6.4-8.2); Sodium Level 137 mmol/L (136-145)
== END 2021-10-18 23:59 | disposition home or self-care (01) ==
LOC: MTLAB 10:12
PROVIDERS: PCP Family Medicine; Referring Provider Podiatrist; Visit Provider Podiatrist
DX: M86.9 Osteomyelitis, unspecified (principal)
CPT/HCPCS: 36415; 80053; 85025

== ENCOUNTER 2021-11-01 08:39 | Outpatient (RCR) | payer BC, SELFPAY ==
[2021-11-01 09:01] VITALS: BMI 28.8
--- NOTE | 2021-11-01 10:32 | PCM.WC.HP ---
History of Present Illness Date of Service: 11/01/21 Chief Complaint: right great toe ulcer [facility] Medical History Anxiety Asthma CAD (coronary artery disease) Chest pain Delayed wound healing Depression Diabetes mellitus DM2 (diabetes mellitus, type 2) Hallux limitus of right foot Hallux limitus of right foot Heart disease HTN (hypertension) Myocardial infarct Toe infection Type 2 diabetes mellitus with diabetic polyneuropathy Home Medications albuterol sulfate 1 - 2 puff INHALATION Q4H PRN PRN 09/17/20 [History Last Taken Unknown] aspirin 81 mg PO DAILY@0800 09/17/20 [History Last Taken 09/24/21 08:00] carvedilol 6.25 mg PO BID 09/17/20 [History Last Taken 09/24/21 08:00] clopidogrel 75 mg PO DAILY 09/17/20 [History Last Taken 09/24/21 08:00] fluticasone propionate 2 puff IH DAILY 09/17/20 [History Last Taken Unknown] glimepiride 8 mg PO DAILY 09/17/20 [History Last Taken 09/24/21 08:00] lisinopril 20 mg PO DAILY 09/17/20 [History Last Taken 09/24/21 08:00] metformin 1,000 mg PO BID 09/17/20 [History Last Taken 09/24/21 08:00] rosuvastatin 10 mg PO QHS 09/17/20 [History Last Taken 09/23/21] sertraline 100 mg PO DAILY 09/17/20 [History Last Taken Unknown] Januvia 100 mg PO DAILY 05/06/21 [History Last Taken 09/24/21 08:00] tramadol 50 mg PO Q6H 05/06/21 [History Last Taken Unknown] Nexletol 180 mg PO DAILY 07/10/21 [History Last Taken 09/24/21 08:00] amlodipine 10 mg PO DAILY 07/10/21 [History Last Taken 09/24/21 10:00] cilostazol 100 mg PO BID 07/10/21 [History Last Taken 09/24/21 08:00] ezetimibe 10 mg PO DAILY 07/10/21 [History Last Taken 09/24/21 08:00] ciprofloxacin HCl [Cipro] 500 mg PO BID #20 tab 09/27/21 [Rx Last Taken Unknown] doxycycline monohydrate 100 mg PO BID #20 cap 09/27/21 [Rx Last Taken Unknown] ferrous sulfate 140 mg PO DAILY #30 tab 09/27/21 [Rx Last Taken Unknown] Allergy/AdvReac Type Severity Reaction Status Date / Time No Known Allergies Allergy Verified 09/24/21 10:24 Family History Other Diabetes Hypertension Surgical History History of coronary artery stent placement Hx of cardiac cath Social History Smoking Status: Never smoker alcohol intake: never substance use type: does not use Vital Signs Vital Signs Vital Signs: Weight Weight: 86.183 kg Body Mass Index (BMI) 28.8 Debridement Note Debridement Note Post-Debridement Measurements and Additional Note: Post-Debridement Measurements/Treatment - Nurse 1 - General Ulcer Assessment Start: 11/01/21 09:01 Freq: Status: Active Protocol: REHAN Activity Type Activity Date Activity User E-Sign Co-Sign Detail Recorded Client Recorded Date Recorded By Document 11/01/21 09:01 KELLI [id number] 11/01/21 09:15 KELLI 11/01/21 09:01 WC - Today's Visit Information Type of service Initial Visit Arrival Mode Ambulatory, Crutches Patient Identification Verified (Name & Yes ) Patient Requires Transmission-Based No Precautions Safety Precautions NA Height and Weight Height 5 ft 8 in Weight 86.183 kg Weight in Pounds 190.0 lbs Weight Measurement Method Estimated by Patient Body Mass Index (BMI) 28.8 BMI Classification Overweight BSA - Felix 2.00 Pain Scale: 0-10 Numeric Is Patient Pain Free? Yes - Nurse 1 - General Ulcer Measurement Start: 11/01/21 09:01 Freq: Status: Active Protocol: Activity Type Activity Date Activity User E-Sign Co-Sign Detail Recorded Client Recorded Date Recorded By Document 11/01/21 09:01 KELLI [id number] 11/01/21 09:15 [place] 11/01/21 09:01 Wound Center Nurse 1 2. R great toe Lateral -Current Size (cm) - Length 6.5 -Current Size (cm) - Width 3.5 -Current Size (cm) - Depth 2.3 -Total Square Cm 22.75 -Date of Last Picture (Recall this 11/01/21 field) -Photo Taken Yes -Epithelialization None Present -Tunneling No -Undermining/Tunneling No -Circular Undermining No -Change in Wound Grade/Stage No -Exudate Amt Medium -Exudate Type Serosanguineous -Wound Margin Distinct, Outline Attached -Granulation Amt None Present (0 %) -Granulation Quality N/A -Slough/Fibrin No -Necrosis Amt None Present (0 %) -Structure Exposed Bone -Texture (Ashlyn-wound Skin Appearance) No Abnormality, Assessed -Moisture (Ashlyn-wound Skin Appearance) No Abnormality, Assessed -Temperature (Ashlyn-wound Skin No Abnormality Appearance) (Pt Warm) -Tenderness on Palpation (Ashlyn-wound Yes Skin Appearance) -Ulcer Cleansing Soap and Water -Foul Odor after Cleansing No -Anesthetic Used 4% Lidocaine Solution Right Calf (cm) 35.5 Right Ankle (cm) 20.5 Left Calf (cm) 33 Left Ankle (cm) 19.5 WC - Nurse 2 - General Ulcer CM Notes Start: 11/01/21 09:01 Freq: Status: Active Protocol: Activity Type Activity Date Activity User E-Sign Co-Sign Detail Recorded Client Recorded Date Recorded By Document 11/01/21 10:24 PL Desktop 11/01/21 10:27 PL 11/01/21 10:24 Wound Center Nurse 2 3-right 2nd toe -Procedure Performed No -Bleeding Controlled with Pressure 2. R great toe Lateral -Time 09:43 -Correct Patient Yes -Correct Side, Site, Position Yes -Correct Procedure Yes -Procedure Performed Yes -Type of Procedure Debridement -Clinical Debridement Subcutaneous -Tissue Removed Subcutaneous -Post Debridement (cm) - Length 6.5 -Post Debridement (cm) - Width 3.5 -Post Debridement (cm) - Depth 2.3 -Total Square (Post) (cm) 22.75 -Area of Debridement (cm) - Length 6.5 -Area of Debridement (cm) - Width 3.5 -Total Square (Area) (cm) 22.75 -Tunneling No -Undermining/Tunneling No -Circular Undermining No -Wound/Ulcer Outcome Not Healed -Ulcer Cleansing Rinsed/ Irrigated with Saline -Foul Odor after Cleansing No -Bioengineered Tissue No -Bleeding Controlled with Pressure -Treatment Response Procedure Tolerated Well -Debridement - Subq, 1st 20sq cm Yes -Debridement, SubQ, ea addt'l 20sq cm 1 or part thereof 1. R great toe Dorsal -Procedure Performed No Pain Scale: 0-10 Numeric Is Patient Pain Free? Yes WC - Nurse 3 - General Ulcer D/C NN Start: 11/01/21 09:01 Freq: Status: Active Protocol: Activity Type Activity Date Activity User E-Sign Co-Sign Detail Recorded Client Recorded Date Recorded By Document 11/01/21 09:01 DC [id number] 11/01/21 09:15 KELLI 11/01/21 09:01 Is Patient Pain Free? Yes
--- NOTE | 2021-11-01 10:37 | HP.PCM_ITS ---
History of Present Illness Date of Service: 11/01/21 Chief Complaint: right great toe ulcer History of Wound: This 61-year-old diabetic male was seen bedside for right chronic great toe ulcer with osteomyelitis. He denies fever, chill, nausea, vomiting. He denies foot pain. He was seen in the hospital setting for acute cellulitis. It is noted he has already been through a full session of hyperbaric oxygen therapy at [facility] wound healing center in the [place] and he has been approved for another course and has been attending. He is taking antibiotics as advised and these were recommended by Dr. Pollock, infectious disease specialist. He denies known side effects or diarrhea. He wears a surgical shoe. He was noted to make his vascular appointment and has this rescheduled for couple weeks. He thinks he has some burning with Santyl application and asked if there is a different dressing option. He was being followed in office by Dr. Kwesi DPM for debridements of his right hallux. He subsequently developed infection with osteomyelitis of the proximal phalanx. He underwent amputation of the right hallux at the first metatarsophalangeal joint on 09/25/[address] Gertrudis DPM. He was being followed in office postoperatively and he was applying a wound VAC which was being changed every 2 to 3 days. He developed a cellulitis infection and was taking oral antibiotics per Dr. Pollock, Cipro 500 mg every 12 hours. His cellulitis has cleared however there is continued nonhealing to the most distal aspect of his surgical site with nonviable/necrotic tissue surrounding the wound margin. There is also prominent exposed first metatarsal head which appears dusk y in color and is soft. Surrounding tissue demonstrates yellow thick nonviable fibrotic tissue. His wound VAC was discontinued and he was instructed to change his dressings with Betadine soaked gauze and dry sterile dressings on Friday, Friday, Friday by visiting nursing. He presents to the wound care center today for continued debridements of his nonhealing surgical site. He denies any nausea, vomiting, fever, chills, or other constitutional symptoms. Patient has a history of anxiety and depression secondary to dealing with his chronic hallux ulceration for the last year. [facility] Medical History (Updated 11/01/21 @ 14:[address] Kike Alban, DPM) Anxiety Asthma CAD (coronary artery disease) Chest pain Delayed wound healing Depression Diabetes mellitus DM2 (diabetes mellitus, type 2) Hallux limitus of right foot Hallux limitus of right foot Heart disease HTN (hypertension) Myocardial infarct Osteomyelitis PAD (peripheral artery disease) Toe infection Type 2 diabetes mellitus with diabetic polyneuropathy Home Medications albuterol sulfate 1 - 2 puff INHALATION Q4H PRN PRN 09/17/20 [History Last Taken Unknown] aspirin 81 mg PO DAILY@0800 09/17/20 [History Last Taken 09/24/21 08:00] carvedilol 6.25 mg PO BID 09/17/20 [History Last Taken 09/24/21 08:00] clopidogrel 75 mg PO DAILY 09/17/20 [History Last Taken 09/24/21 08:00] fluticasone propionate 2 puff IH DAILY 09/17/20 [History Last Taken Unknown] glimepiride 8 mg PO DAILY 09/17/20 [History Last Taken 09/24/21 08:00] lisinopril 20 mg PO DAILY 09/17/20 [History Last Taken 09/24/21 08:00] metformin 1,000 mg PO BID 09/17/20 [History Last Taken 09/24/21 08:00] rosuvastatin 10 mg PO QHS 09/17/20 [History Last Taken 09/23/21] sertraline 100 mg PO DAILY 09/17/20 [History Last Taken Unknown] Januvia 100 mg PO DAILY 05/06/21 [History Last Taken 09/24/21 08:00] tramadol 50 mg PO Q6H 05/06/21 [History Last Taken Unknown] Nexletol 180 mg PO DAILY 07/10/21 [History Last Taken 09/24/21 08:00] amlodipine 10 mg PO DAILY 07/10/21 [History Last Taken 09/24/21 10:00] cilostazol 100 mg PO BID 07/10/21 [History Last Taken 09/24/21 08:00] ezetimibe 10 mg PO DAILY 07/10/21 [History Last Taken 09/24/21 08:00] ciprofloxacin HCl [Cipro] 500 mg PO BID #20 tab 09/27/21 [Rx Last Taken Unknown] doxycycline monohydrate 100 mg PO BID #20 cap 09/27/21 [Rx Last Taken Unknown] ferrous sulfate 140 mg PO DAILY #30 tab 09/27/21 [Rx Last Taken Unknown] Allergy/AdvReac Type Severity Reaction Status Date / Time No Known Allergies Allergy Verified 11/01/21 11:55 Family History Other Diabetes Hypertension Surgical History History of coronary artery stent placement Hx of cardiac cath Social History Smoking Status: Never smoker alcohol intake: never substance use type: does not use ROS Constitutional Constitutional: Denies chills, fatigue, fever(s) or weakness Eyes Eyes: Denies double vision, dry eyes or eye pain ENT HEENT: Denies ear pain, headache(s), nasal congestion, nasal discharge, sinus pain or sore throat Cardiovascular Cardiovascular: Denies claudication, dyspnea or palpitations Respiratory/Chest Respiratory/Chest: Denies cough, hemoptysis, productive cough or shortness of breath at rest Gastrointestinal Gastrointestinal: Denies abdominal pain, constipation, diarrhea, nausea or vomiting Genitourinary Genitourinary: Denies hematuria, urinary frequency or urinary hesitancy Musculoskeletal Musculoskeletal: Denies joint pain, joint stiffness, joint swelling or stiffness Integumentary Integumentary: Denies change in pigmentation, dry skin, pruritus or rash Neurologic Neurologic: Denies headache(s), loss of vision, seizures or syncope Psychiatric Psychiatric: Reports anxiety and depression Endocrine Endocrinology: Denies cold intolerance, heat intolerance, polydipsia or polyuria Hematologic/Lymphatic Hematologic/Lymphatic: Denies easy bleeding or easy bruising Vital Signs Vital Signs Vital Signs: Weight Weight: 86.183 kg Body Mass Index (BMI) 28.8 Physical Exam Const alert, oriented x3 and no apparent distress General Appearance: cooperative and comfortable HEENT normocephalic Eyes General Eye: normal appearance of both eyes Neck General: normal visual inspection Lymph Lymphatic: no lymphadenopathy noted and no lymphedema noted Chest inspection of chest normal Resp normal respiratory effort Cardio regular rate and regular rhythm Extremity Peripheral Pulses: Yes posterior tibial pulses present and dorsalis pedis pulses present Skin no rashes or lesions noted and skin turgor normal Wound Narrative: First metatarsophalangeal joint stump ulceration site is open plantarly and dorsally extending proximally to the neck of the first metatarsal bone with exposed bone of the first metatarsal head which is aguilar in appearance and dusky. The head of the first metatarsal bone is soft to palpation. Surrounding tissue demonstrates mixed fibrogranular tissue with thick yellow, goopy, nonviable fibrotic tissue. There is localized rubor about the margins of the wound with no increased temperature to palpation. Wound demonstrates no purulent drainage or malodor or crepitus or palpable fluctuance. Wound margins demonstrate hyperkeratotic tissue and eschar. Neuro oriented x3 and moves all extremities Motor Exam: strength 5/5 throughout and clonus absent Debridement Note Debridement Note Wound debrided: First digit stump ulceration Laterality: Right Wound Grade/Stage: Latif grade 3 Type of Debridement: Excisional debridement Depth: in the subcutaneous layer Percentage of wound debrided: 100 Instrument Used: - ([employer] ultrasonic debrider) Tissue Removed: Fibrous, devitalized subcutaneous, biofilm, slough Severity: Necrosis of Bone Amount of bleeding with debridement: Mild Bleeding Controlled with: Pressure Patient tolerated procedure: Patient tolerated procedure well Post-Debridement Measurements and Additional Note: Post-Debridement Measurements/Treatment WC - Nurse 1 - General Ulcer Assessment Start: 11/01/21 09:01 Freq: Status: Active Protocol: REHAN Activity Type Activity Date Activity User E-Sign Co-Sign Detail Recorded Client Recorded Date Recorded By Document 11/01/21 09:01 KELLI [id number] 11/01/21 09:15 KELLI 11/01/21 09:01 WC - Today's Visit Information Type of service Initial Visit Arrival Mode Ambulatory, Crutches Patient Identification Verified (Name & Yes ) Patient Requires Transmission-Based No Precautions Safety Precautions NA Height and Weight Height 5 ft 8 in Weight 86.183 kg Weight in Pounds 190.0 lbs Weight Measurement Method Estimated by Patient Body Mass Index (BMI) 28.8 BMI Classification Overweight BSA - Felix 2.00 Pain Scale: 0-10 Numeric Is Patient Pain Free? Yes - Nurse 1 - General Ulcer Measurement Start: 11/01/21 09:01 Freq: Status: Active Protocol: Activity Type Activity Date Activity User E-Sign Co-Sign Detail Recorded Client Recorded Date Recorded By Document 11/01/21 09:01 KELLI [id number] 03/24/22 09:15 [place] 11/01/21 09:01 Wound Center Nurse 1 2. R great toe Lateral -Current Size (cm) - Length 6.5 -Current Size (cm) - Width 3.5 -Current Size (cm) - Depth 2.3 -Total Square Cm 22.75 -Date of Last Picture (Recall this 11/01/21 field) -Photo Taken Yes -Epithelialization None Present -Tunneling No -Undermining/Tunneling No -Circular Undermining No -Change in Wound Grade/Stage No -Exudate Amt Medium -Exudate Type Serosanguineous -Wound Margin Distinct, Outline Attached -Granulation Amt None Present (0 %) -Granulation Quality N/A -Slough/Fibrin No -Necrosis Amt None Present (0 %) -Structure Exposed Bone -Texture (Ashlyn-wound Skin Appearance) No Abnormality, Assessed -Moisture (Ashlyn-wound Skin Appearance) No Abnormality, Assessed -Temperature (Ashlyn-wound Skin No Abnormality Appearance) (Pt Warm) -Tenderness on Palpation (Ashlyn-wound Yes Skin Appearance) -Ulcer Cleansing Soap and Water -Foul Odor after Cleansing No -Anesthetic Used 4% Lidocaine Solution Right Calf (cm) 35.5 Right Ankle (cm) 20.5 Left Calf (cm) 33 Left Ankle (cm) 19.5 WC - Nurse 2 - General Ulcer CM Notes Start: 11/01/21 09:01 Freq: Status: Active Protocol: Activity Type Activity Date Activity User E-Sign Co-Sign Detail Recorded Client Recorded Date Recorded By Document 11/01/21 10:24 PL Desktop 11/01/21 10:27 PL 11/01/21 10:24 Wound Center Nurse 2 3-right 2nd toe -Procedure Performed No -Bleeding Controlled with Pressure 2. R great toe Lateral -Time 09:43 -Correct Patient Yes -Correct Side, Site, Position Yes -Correct Procedure Yes -Procedure Performed Yes -Type of Procedure Debridement -Clinical Debridement Subcutaneous -Tissue Removed Subcutaneous -Post Debridement (cm) - Length 6.5 -Post Debridement (cm) - Width 3.5 -Post Debridement (cm) - Depth 2.3 -Total Square (Post) (cm) 22.75 -Area of Debridement (cm) - Length 6.5 -Area of Debridement (cm) - Width 3.5 -Total Square (Area) (cm) 22.75 -Tunneling No -Undermining/Tunneling No -Circular Undermining No -Wound/Ulcer Outcome Not Healed -Ulcer Cleansing Rinsed/ Irrigated with Saline -Foul Odor after Cleansing No -Bioengineered Tissue No -Bleeding Controlled with Pressure -Treatment Response Procedure Tolerated Well -Debridement - Subq, 1st 20sq cm Yes -Debridement, SubQ, ea addt'l 20sq cm 1 or part thereof 1. R great toe Dorsal -Procedure Performed No Pain Scale: 0-10 Numeric Is Patient Pain Free? Yes WC - Nurse 3 - General Ulcer D/C NN Start: 11/01/21 09:01 Freq: Status: Active Protocol: Activity Type Activity Date Activity User E-Sign Co-Sign Detail Recorded Client Recorded Date Recorded By Document 11/01/21 09:01 KELLI [id number] 11/01/21 09:15 KELLI 11/01/21 09:01 Is Patient Pain Free? 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: CODE(S): L97.514 - Non-pressure chronic ulcer of other part of right foot with necrosis of bone (5) Acute osteomyelitis of metatarsal bone of right foot: CODE(S): M86.171 - Other acute osteomyelitis, right ankle and foot (6) Depression: CODE(S): F32.9 - Major depressive disorder, single episode, unspecified (7) Delayed wound healing: CODE(S): T14.8XXD - Other injury of unspecified body region, subsequent encounter (8) Anxiety: CODE(S): F41.9 - Anxiety disorder, unspecified PLAN: This is a 61-year-old male who was seen in the wound care center for a nonhealing wound secondary to right hallux amputation. Patient underwent amputation of his right hallux for osteomyelitis of the proximal phalanx on 09/25/2021. He had been applying a wound VAC which was changed by visiting nursing and following up in office with Dr. Gertrudis DPM. He he subsequently developed cellulitis which was treated with [address] Ahmadi. At that time his wound VAC was discontinued and he was instructed to pack the surgical site with Betadine soaked gauze and dry sterile dressings. He was referred to the wound care center for further debridements. His wounds are complicated by history of osteomyelitis, nonhealing/delayed healing wound, osteomyelitis of the first metatarsal head, type 2 diabetes with peripheral polyneuropathy, peripheral vascular disease, anxiety and depression. On examination today the first metatarsophalangeal joint stump ulceration site is open plantarly and dorsally extending proximally to the neck of the first metatarsal bone with exposed bone of the first metatarsal head which is aguilar in appearance and dusky. The head of the first metatarsal bone is soft to palpation. Surrounding tissue demonstrates mixed fibrogranular tissue with thick yellow, goopy, nonviable fibrotic tissue. There is localized rubor about the margins of the wound with no increased temperature to palpation. Wound demonstrates no purulent drainage or malodor or crepitus or palpable fluctuance. Wound margins demonstrate hyperkeratotic tissue and eschar. Debridement of the wound and nonviable tissues today performed with [employer] ultrasonic debrider and a #15 blade with pickup removing eschar, fibrous, devitalized subcutaneous, biofilm, slough. Debridement carried down to the level of subcutaneous tissue. There is noted to be exposed bone of the first metatarsal head. No anesthesia was required secondary to patient's peripheral neuropathy.The pickups were utilized to palpate the head of the first metatarsal which was noted to be soft, dusky, and aguilar in appearance consistent with osteomyelitis of the first metatarsal head. I discussed the nature of his case and condition with him today and that my findings are consistent with a positive osteomyelitis of the first metatarsal head. I discussed with him that given these findings that likely more bone would need to be removed to aid in clearing his infection and closing the wound. We discussed surgical intervention. On hearing this patient became very emotional about our discussion. I discussed with him today that he needs to go to the ED for admittance to be started on IV antibiotics with likely surgical intervention/partial ray resection of the first metatarsal and debridement of necrotic nonviable tissue. Patient voices understanding of this, but I feel he does not grasp the severity of why he needs to go and be admitted. Once he is admitted patient will be followed by podiatry for likely surgical intervention All questions were answered at length to patient's satisfaction. Dr. Kike Phoenix Jr., D.P.M. [facility] [phone] 45 minutes was spent on this encounter. This included face to face and non face to face care including preparing for the visit, reviewing the history, performing the exam, counseling and providing education to the patient, family, or caregiver, ordering medications/test/ procedures if indicated as documented, communicating with other healthcare providers, documenting information in the medical record, interpreting / sharing this information when indicated as documented, and care coordination. Note: EDITD speech recognition commercial roofing estimator software was used to create portions of this document. Sound-alike and misspelled words, as well as other commercial roofing estimator errors may be contained in the documentation.
== END 2021-11-08 23:59 | disposition home or self-care (01) ==
LOC: WC 08:39
PROVIDERS: PCP Family Medicine; Visit Provider Podiatrist
DX: E11.621 Type 2 diabetes mellitus with foot ulcer (principal); E11.51 Type 2 diabetes mellitus with diabetic peripheral angiopathy without gangrene; T87.89 Other complications of amputation stump; L97.514 Non-pressure chronic ulcer of other part of right foot with necrosis of bone; M86.171 Other acute osteomyelitis, right ankle and foot; E11.42 Type 2 diabetes mellitus with diabetic polyneuropathy; Z79.02 Long term (current) use of antithrombotics/antiplatelets; I25.10 Atherosclerotic heart disease of native coronary artery without angina pectoris; F32.A Depression, unspecified; F41.9 Anxiety disorder, unspecified; I10 Essential (primary) hypertension; Z79.899 Other long term (current) drug therapy; Z79.82 Long term (current) use of aspirin; Z79.84 Long term (current) use of oral hypoglycemic drugs; J45.909 Unspecified asthma, uncomplicated; Y83.5 Amputation of limb(s) as the cause of abnormal reaction of the patient, or of later complication, without mention of misadventure at the time of the procedure
CPT/HCPCS: 11042; 11045; 99213; G0463

== ENCOUNTER 2021-11-01 11:51 | Inpatient (IN) | payer BC, SELFPAY ==
[2021-11-01 11:52] VITALS: BP 121/65; PULSE 84; RESP 16; TEMP 36.7; O2SAT 96; BMI 28.8
--- NOTE | 2021-11-01 12:39 | EDS_ITS ---
HPI History of Present Illness Chief Complaint: Wound [facility] Medical History (Updated 11/01/21 @ 14:[address] Kike Phoenix DPM) Anxiety Asthma CAD (coronary artery disease) Chest pain Delayed wound healing Depression Diabetes mellitus DM2 (diabetes mellitus, type 2) Hallux limitus of right foot Hallux limitus of right foot Heart disease HTN (hypertension) Myocardial infarct Osteomyelitis PAD (peripheral artery disease) Toe infection Type 2 diabetes mellitus with diabetic polyneuropathy Home Medications albuterol sulfate 1 - 2 puff INHALATION Q4H PRN PRN 09/17/20 [History Last Taken Unknown] aspirin 81 mg PO DAILY@0800 09/17/20 [History Last Taken 09/24/21 08:00] carvedilol 6.25 mg PO BID 09/17/20 [History Last Taken 09/24/21 08:00] clopidogrel 75 mg PO DAILY 09/17/20 [History Last Taken 09/24/21 08:00] fluticasone propionate 2 puff IH DAILY 09/17/20 [History Last Taken Unknown] glimepiride 8 mg PO DAILY 09/17/20 [History Last Taken 09/24/21 08:00] lisinopril 20 mg PO DAILY 09/17/20 [History Last Taken 09/24/21 08:00] metformin 1,000 mg PO BID 09/17/20 [History Last Taken 09/24/21 08:00] rosuvastatin 10 mg PO QHS 09/17/20 [History Last Taken 09/23/21] sertraline 100 mg PO DAILY 09/17/20 [History Last Taken Unknown] Januvia 100 mg PO DAILY 05/06/21 [History Last Taken 09/24/21 08:00] tramadol 50 mg PO Q6H 05/06/21 [History Last Taken Unknown] Nexletol 180 mg PO DAILY 07/10/21 [History Last Taken 09/24/21 08:00] amlodipine 10 mg PO DAILY 07/10/21 [History Last Taken 09/24/21 10:00] cilostazol 100 mg PO BID 07/10/21 [History Last Taken 09/24/21 08:00] ezetimibe 10 mg PO DAILY 07/10/21 [History Last Taken 09/24/21 08:00] ciprofloxacin HCl [Cipro] 500 mg PO BID #20 tab 09/27/21 [Rx Last Taken Unknown] doxycycline monohydrate 100 mg PO BID #20 cap 09/27/21 [Rx Last Taken Unknown] ferrous sulfate 140 mg PO DAILY #30 tab 09/27/21 [Rx Last Taken Unknown] Allergy/AdvReac Type Severity Reaction Status Date / Time No Known Allergies Allergy Verified 11/01/21 11:55 Family History Other Diabetes Hypertension Surgical History History of coronary artery stent placement Hx of cardiac cath Social History Smoking Status: Never smoker alcohol intake: never substance use type: does not use ROS ROS ED Constitutional Constitutional ED: Denies chills, fever(s) or sweats Eyes Eyes: Denies blurry vision or change in vision ENT ENT ED: Denies ear pain or sore throat Cardiovascular Cardiovascular: Denies chest pain, palpitations or racing heartbeat Respiratory/Chest Respiratory/Chest: Denies cough, dyspnea or sputum Gastrointestinal Gastrointestinal: Denies abdominal pain, constipation, diarrhea, nausea or vomiting Genitourinary Genitourinary ED: Denies dysuria, hematuria or urinary frequency Musculoskeletal Musculoskeletal: Denies arthralgias, myalgias or neck pain Integumentary Reports other Details: Open wound left foot on the area of previous surgery. No drainage. No crepitance. Slight erythema on the plantar surface of the foot. Tender to palpation. Neurologic Neurologic: Denies headache(s), paresthesias or weakness Psychiatric Psychiatric: Denies anxiety, depression, suicidal ideation or suicidal thoughts Endocrine Endocrinology: Denies polydipsia or polyuria EXAM Physical Exam Const Vital Signs: 11/01/21 11:52 11/01/21 14:13 11/01/21 14:56 Temperature 98.1 F 97.2 F L Temperature Source Temporal Temporal Pulse Rate 84 76 76 Respiratory Rate 16 14 16 Blood Pressure 121/65 H 136/61 H 140/73 H Blood Pressure Mean 83 86 95 Pulse Ox 96 96 97 Oxygen Delivery Method Room Air Room Air Room Air Positive well nourished General Appearance ED: Negative for pallor HEENT Reports normocephalic, head/scalp atraumatic and moist mucous membranes Eyes PERRL and EOMs intact bilaterally Neck no lymphadenopathy and supple Chest Wall inspection of chest normal and palpation of chest normal Resp normal respiratory effort and clear to auscultation bilaterally Auscultation: Negative for rales, rhonchi or wheezes Cardio regular rate and regular rhythm GI normal to inspection, nondistended, normoactive bowel sounds Narrative: Deferred Extremity normal to inspection General Extremety ED: Yes edema and tenderness General Extremity: edema Neuro oriented x3 and CN's II-XII intact bilaterally Sensorium / Orientation: alert Motor Exam: strength 5/5 throughout Psych mental status grossly normal Attitude: No agitated Skin no rashes or lesions noted Skin Narrative: Open foot wound on the medial aspect of the right foot where previous wound dehiscence from surgery is located. No crepitance. No drainage. No active bleeding. It is tender to palpation. General Skin Exam: Negative for jaundice or pallor MDM MDM MDM Narrative Medical decision making narrative: Patient presenting from wound care for admission for IV antibiotics. Blood work is obtained a and CBC is unremarkable. BMP shows a slight elevation his creatinine 1.42 (1.35. Magnesium normal. LFTs within normal limits. CRP is elevated at 14. Spoke with Dr. Orosco who is on-call for podiatry. X-ray of the right foot shows concern for osteomyelitis on my interpretation. The radiologist does agree. She came to the ER to see the patient in consult. Patient will be admitted to medicine. Impression: 1. Osteomyelitis right foot 2. Failure of outpatient biotics Lab Data Attestation: I reviewed the patient's lab results. Labs: Laboratory Results - last 24 hr 11/01/21 11/01/21 11/01/21 12:50 12:50 12:50 WBC 6.8 RBC 4.34 L Hgb 11.6 L Hct 34.4 L MCV 79.3 L MCH 26.7 L MCHC 33.7 RDW Std Deviation 39.2 RDW Coeff of Divya 13.7 Plt Count 210 MPV 9.8 Immature Gran % (Auto) 0.900 Neut % (Auto) 74.1 H Lymph % (Auto) 17.3 L [place] % (Auto) 4.6 Eos % (Auto) 2.8 Baso % (Auto) 0.3 Absolute Neuts (auto) 5.0 Absolute Lymphs (auto) 1.17 Nucleated RBC % 0 ESR 20 Sodium 139 Potassium 4.1 Chloride 107 Carbon Dioxide 24.0 Anion Gap 8 BUN 14 Creatinine 1.42 H Estim Creat Clear Calc 52.18 Est GFR (MDRD) Af Amer 65 Est GFR (MDRD) Non-Af 54 L BUN/Creatinine Ratio 9.9 L Glucose 231 H Calcium 9.6 Magnesium 1.6 Total Bilirubin 0.30 AST 14 L ALT 29 Alkaline Phosphatase 104 C-React Prot Ext Range 14.00 H Total Protein 7.2 Albumin 3.8 Globulin 3.4 Albumin/Globulin Ratio 1.1 Radiography Diagnostic Testing: Clinical Impression(s) from Imaging Studies Foot X-Ray 11/01/21 13:08 IMPRESSION: Amputation of the first digit with exposure of the first metatarsal head and erosion of the lateral aspect of the first metatarsal head, worrisome for osteomyelitis. Electronically Signed: Agustín Ellis MD at 13:51 EDT Reading Location ID and State: [facility] / [place] Tel , Service support , Discharge Plan Disposition Disposition: Acute Care Hospital [facility] Discharge Date/Time: 11/01/21 15:29
[2021-11-01] MEDS: Morphine 4 MG/ML Syringe IV (12:49)
[2021-11-01] MEDS: Ondansetron 4 MG/2 ML Vial IV (12:49)
[2021-11-01 13:01] LABS: Erythrocyte Sedimentation Rate 20 mm/hr (0-20)
[2021-11-01 13:03] LABS: Absolute Lymphocyte Count 1.17 X10^3/uL (0.83-4.51); Basophil# 0.02 X10^3/uL; Basophil% 0.3 % (0-1); Eosinophil# 0.19 X10^3/uL; Eosinophils% 2.8 % (0-5); Hematocrit 34.4 % (40-54); Hemoglobin 11.6 g/dL (13.0-16.5); Lymphocyte # 1.17 X10^3/ul (0.83-4.51); Lymphocyte % 17.3 % (19-41); Mean Corp Hgb Conc 33.7 g/dL (32-36); Mean Corpuscular Hgb 26.7 pg (27.0-32.0); Mean Corpuscular Volume 79.3 fL (80-94); Mean Platelet Vol. 9.8 fl (6.2-12.0); Monocyte# 0.31 X10^3/uL; Monocyte% 4.6 % (0-10); NRBC Flagged by Analyzer 0 % (0-5); Neutrophil # 5.01 X10^3/uL (2.7-7.7); Neutrophil % 74.1 % (47-70); Platelet Count 210 K/mm3 (150-450); RBC Distribution Width CV 13.7 % (11.6-14.6); RBC Distribution Width SD 39.2 fl (35.1-43.9); Red Blood Count 4.34 M/mm3 (4.6-6.2); White Blood Count 6.8 K/mm3 (4.4-11.0)
--- NOTE | 2021-11-01 13:08 | RAD_ITS ---
STUDY: X-RAY - RIGHT FOOT CLINICAL: Right foot wound, right foot pain. TECHNIQUE: 3 view(s) of the foot. COMPARISON: Radiographs 09/25/2021. FINDINGS: There is a plantar calcaneal enthesophyte. Otherwise, unremarkable talus, calcaneus, and tarsal bones. Normal visualized subtalar, talonavicular, calcaneocuboid, tarsal and tarsometatarsal articulations. Normal metatarsi. There is amputation of the first digit at the level of the metatarsophalangeal joint with exposure of the first metatarsal head at the site of the wound with erosion of the lateral aspect of the first metatarsal head, worrisome for osteomyelitis. Normal second through fifth metatarsophalangeal joints. Normal interphalangeal joints and phalanges of the lesser toes. There is vascular calcification. There are chronic metallic densities between the first and second metatarsals. RAD/Foot min 3 Views IMPRESSION: Amputation of the first digit with exposure of the first metatarsal head and erosion of the lateral aspect of the first metatarsal head, worrisome for osteomyelitis. Electronically Signed: Agustín Ellis MD at 13:51 EDT ,
[2021-11-01 13:17] LABS: ALB/GLOB Ratio 1.1 RATIO (0.9-2.4); AST(SGOT) 14 U/L (15-37); Alanine Aminotransfer ALT/SGPT 29 U/L (16-61); Albumin, Serum 3.8 g/dL (3.2-5.0); Alkaline Phosphatase 104 U/L (45-117); Anion Gap 8 (5-15); BUN 14 mg/dL (7-18); BUN/Creat Ratio 9.9 RATIO (10-20); Calcium,Total 9.6 mg/dL (8.5-10.1); Chloride 107 mmol/L (98-107); Creatinine, Serum 1.42 mg/dL (0.70-1.30); EST Glomerular Filtration Rate 54 mL/min (>60); Est Glom Filt Rate - Afr Amer 65 mL/min (>60); Estimated Creatinine Clearance 52.18 ml/min; Globulin 3.4 g/dL (2.2-4.2); Glucose 231 mg/dL (74-106); Potassium 4.1 mmol/L (3.5-5.1); Protein, Total 7.2 g/dL (6.4-8.2); Sodium Level 139 mmol/L (136-145)
[2021-11-01 14:13] VITALS: BP 136/61; PULSE 76; RESP 14; O2SAT 96
--- NOTE | 2021-11-01 14:46 | CM.ED ---
Addendum entered by Franchesca Knapp 11/01/21 22:34: BARBRA updated PCU BARBRA Potts regarding this interaction. Franchesca POZO Original Note: BARBRA Note Referral Source: MD Referral Reason: Depression MD reports that patient appears to be depressed about his medical condition. Patient denies SI/Hi. However, may benefit from counseling resources. BARBRA met with patient in his ED room. Introduced self. SW discussed patient's depression and he said I have talked to you guys before.. it's a personal problem and voiced that the medical field has let him down. BARBRA offered patient resources for IOP/BH and counseling resource and patient declined and was dismissive of this comic book writer stating he did not want to talk to this comic book writer anymore. Plan: BARBRA offered resources. Patient declined Franchesca POZO
[2021-11-01 14:56] VITALS: BP 140/73; PULSE 76; RESP 16; TEMP 36.2; O2SAT 97
--- NOTE | 2021-11-01 14:57 | PCM.HP.STD ---
HPI - General General Date of Admission: 11/01/21 Date of Service: 11/01/21 Chief Complaint: Worsening R foot diabetic wound. HPI Narrative The patient is a 61 y/o M w/ PMHx: Diabetes mellitus type II with polyneuropathy, Asthma, Anxiety and Depression, Chronic anemia/AOCD, CAD s/p PCI x 2, PAD x 1 RLE, HTN, HLD, recent 09/25/21 right hallux first metatarsophalangeal joint resection following w/ Dr. Lazo with prior VAC with eventual infection with Dr. Pollock treatment with cipro with improvement of cellulitis however region has remained open and has not healed well with distal surgical site with nonviable/necrotic tissue, prominent exposed first metatarsal head noted to be dusky with yellow thick nonviable fibrotic tissue prompting the [facility] to refer patient to the [facility] ED 11/01/21 for evaluation. Patient notes the right lower extremity has been very painful especially with any palpation and rates it as sharp, 10 out of 10 in severity. He notes also discomfort with any ambulation with weightbearing. Dr. Lazo discussed current plan of care with patient following dressing take down with plan for discussions with Dr. Wells and if no further intervention plans to RLE then would plan OR in AM with resection of exposed bone. Work-up in the ED included T 98.1, heart rate 84, BP 121/65, respiratory rate 16, 96% on room air, CBC with WC 6.8, hemoglobin 9.6, platelet 210 without marked shift, CMP with BUN/creatinine 14/1.42, glucose 231, AST 14, CRP 14, ESR 20, plain right foot film with amputation of the first digit with exposure of the first metatarsal head and erosion of the lateral aspect of the first metatarsal head with worrisome for osteomyelitis. In the ED patient ministered IV vancomycin and Zosyn. ED physician did discuss case with Dr. Lazo on-call for podiatry who is been following the patient. [facility] Medical History (Updated 11/01/21 @ 14:[address] Kike Phoenix, JESSICA) Anxiety Asthma CAD (coronary artery disease) Chest pain Delayed wound healing Depression Diabetes mellitus DM2 (diabetes mellitus, type 2) Hallux limitus of right foot Hallux limitus of right foot Heart disease HTN (hypertension) Myocardial infarct Osteomyelitis PAD (peripheral artery disease) Toe infection Type 2 diabetes mellitus with diabetic polyneuropathy Home Medications albuterol sulfate 1 - 2 puff INHALATION Q4H PRN PRN 09/17/20 [History Last Taken Unknown] aspirin 81 mg PO DAILY@0800 09/17/20 [History Last Taken 09/24/21 08:00] carvedilol 6.25 mg PO BID 09/17/20 [History Last Taken 09/24/21 08:00] clopidogrel 75 mg PO DAILY 09/17/20 [History Last Taken 09/24/21 08:00] fluticasone propionate 2 puff IH DAILY 09/17/20 [History Last Taken Unknown] glimepiride 8 mg PO DAILY 09/17/20 [History Last Taken 09/24/21 08:00] lisinopril 20 mg PO DAILY 09/17/20 [History Last Taken 09/24/21 08:00] metformin 1,000 mg PO BID 09/17/20 [History Last Taken 09/24/21 08:00] rosuvastatin 10 mg PO QHS 09/17/20 [History Last Taken 09/23/21] sertraline 100 mg PO DAILY 09/17/20 [History Last Taken Unknown] Januvia 100 mg PO DAILY 05/06/21 [History Last Taken 09/24/21 08:00] tramadol 50 mg PO Q6H 05/06/21 [History Last Taken Unknown] Nexletol 180 mg PO DAILY 07/10/21 [History Last Taken 09/24/21 08:00] amlodipine 10 mg PO DAILY 07/10/21 [History Last Taken 09/24/21 10:00] cilostazol 100 mg PO BID 07/10/21 [History Last Taken 09/24/21 08:00] ezetimibe 10 mg PO DAILY 07/10/21 [History Last Taken 09/24/21 08:00] ciprofloxacin HCl [Cipro] 500 mg PO BID #20 tab 09/27/21 [Rx Last Taken Unknown] doxycycline monohydrate 100 mg PO BID #20 cap 09/27/21 [Rx Last Taken Unknown] ferrous sulfate 140 mg PO DAILY #30 tab 09/27/21 [Rx Last Taken Unknown] Allergy/AdvReac Type Severity Reaction Status Date / Time No Known Allergies Allergy Verified 11/01/21 11:55 Family History (Updated 11/01/21 @ 15:[address] Katia Carrizales MD) Mother Diabetes Hypertension Father Diabetes Hypertension Surgical History (Updated 11/01/21 @ 15:[address] Katia Carrizales MD) History of coronary artery stent placement S/P peripheral artery angioplasty with stent placement Status post right foot surgery Social History (Updated 11/01/21 @ 15:[address] Katia Carrizales MD) household members: none Smoking Status: Never smoker alcohol intake: never substance use type: does not use ROS ROS Narrative Admission Review of Systems: CONSTITUTIONAL: No weight loss, fever, chills, + weakness or fatigue. HEENT: Eyes: No visual loss, blurred vision, double vision or yellow sclerae. Ears, Nose, Throat: No hearing loss, sneezing, congestion, runny nose or sore throat. SKIN: + RLE exposed bone, drainage, edema. CARDIOVASCULAR: No chest pain, chest pressure or chest discomfort, palpitations, edema, orthopnea, syncopal events. RESPIRATORY: No shortness of breath, cough or sputum, wheezing, hemoptysis. GASTROINTESTINAL: No anorexia, nausea, vomiting or diarrhea, abdominal pain, melena, BRBPR. GENITOURINARY: No dysuria, frequency, urgency or retention. NEUROLOGICAL: No headache, dizziness, syncope, paralysis, ataxia, numbness or tingling in the extremities, focal weakness, change in bowel or bladder control, seizure. MUSCULOSKELETAL: + muscle, back pain, joint pain or stiffness. HEMATOLOGIC: + anemia, bleeding or bruising. LYMPHATICS: No enlarged nodes. No history of splenectomy. PSYCHIATRIC: + history of depression or anxiety. ENDOCRINOLOGIC: No reports of sweating, cold or heat intolerance. No polyuria or polydipsia. ALLERGIES: No history of asthma, hives, eczema or rhinitis. Vital Signs Vital Signs Vital Signs: 11/01/21 11:52 11/01/21 14:13 11/01/21 14:56 Temperature 98.1 F 97.2 F L Temperature Source Temporal Temporal Pulse Rate 84 76 76 Respiratory Rate 16 14 16 Blood Pressure 121/65 H 136/61 H 140/73 H Blood Pressure Mean 83 86 95 Pulse Ox 96 96 97 Oxygen Delivery Method Room Air Room Air Room Air Weight Weight: 190 lb Body Mass Index (BMI) 28.8 Physical Exam Narrative Physical Examination: General: Awake, alert, oriented x 3 and cooperative, seated upright in the ED bed in no apparent distress, notable pain w/ RLE evaluation however. Skin: Normal color, normal turgor, no icterus, no cyanosis except noted first metatarsophalangeal joint stump ulceration site open extending proximally to the neck the first metatarsal bone with exposed first metatarsal head aguilar and dusky in appearance and soft to palpation with surrounding tissue with thick yellow discharge and fibrotic tissue. HEENT: AT/NC, EOMI, PERRLA, MMM, no carotid bruits or JVD noted. Lungs: CTA bilaterally, moderate effort, mild decrease BL bases, no rales, ronchi or wheezing. Heart: Currently regular rate and rhythm; no gallop, rub audible. Abdomen: Soft, overweight, NTTP, ND, normal BS, no HSM. Extremities: No cyanosis, clubbing, mild right lower extremity swelling associated with acute presentation, see skin Neurological: Patient awake, alert, oriented x 3, cognitive function intact; pupils equally reactive to light and accommodation, cranial nerves II-XII grossly normal, moving all 4 extremities although debilitated with right lower extremity pain with certain activities, no focal deficits, strength mildly global decreased secondary to acute presentation Psychiatric: Affect appears frustrated, admits to anxiety and depression with his ongoing issues with his foot. Results Lab / Micro Data Result Diagrams: 11/01/21 12:50 11/01/21 12:50 Labs: Laboratory Results - last 24 hr 11/01/21 12:50: WBC 6.8, RBC 4.34 L, Hgb 11.6 L, Hct 34.4 L, MCV 79.3 L, MCH 26.7 L, MCHC 33.7, RDW Std Deviation 39.2, RDW Coeff of Divya 13.7, Plt Count 210, MPV 9.8, Immature Gran % (Auto) 0.900, Neut % (Auto) 74.1 H, Lymph % (Auto) 17.3 L, [place] % (Auto) 4.6, Eos % (Auto) 2.8, Baso % (Auto) 0.3, Absolute Neuts (auto) 5.0, Absolute Lymphs (auto) 1.17, Nucleated RBC % 0, ESR 20 11/01/21 12:50: Sodium 139, Potassium 4.1, Chloride 107, Carbon Dioxide 24.0, Anion Gap 8, BUN 14, Creatinine 1.42 H, Estim Creat Clear Calc 52.18, Est GFR (MDRD) Af Amer 65, Est GFR (MDRD) Non-Af 54 L, BUN/Creatinine Ratio 9.9 L, Glucose 231 H, Calcium 9.6, Total Bilirubin 0.30, AST 14 L, ALT 29, Alkaline Phosphatase 104, C-React Prot Ext Range 14.00 H, Total Protein 7.2, Albumin 3.8, Globulin 3.4, Albumin/Globulin Ratio 1.1 Micro: Microbiology 11/01/21 12:43 Wound - Tissue Gram Stain - Final Radiology Impression Foot X-Ray 11/01/21 13:08 IMPRESSION: Amputation of the first digit with exposure of the first metatarsal head and erosion of the lateral aspect of the first metatarsal head, worrisome for osteomyelitis. Electronically Signed: Agustín Ellis MD at 13:51 EDT Reading Location ID and State: [facility] / [place] Tel , Service support , Assessment & Plan Assessment/Plan (1) Acute osteomyelitis of metatarsal bone of right foot: PLAN: The patient is a 61 y/o M w/ PMHx: Diabetes mellitus type II with polyneuropathy, Asthma, Anxiety and Depression, Chronic anemia/AOCD, CAD s/p PCI x 2, PAD x 1 RLE, HTN, HLD, recent 09/25/21 right hallux first metatarsophalangeal joint resection following w/ Dr. Lazo with prior VAC with eventual infection with Dr. Pollock treatment with cipro with improvement of cellulitis however region has remained open and has not healed well with distal surgical site with nonviable/necrotic tissue, prominent exposed first metatarsal head noted to be dusky with yellow thick nonviable fibrotic tissue prompting the [facility] to refer patient to the [facility] ED 11/01/21 for evaluation. #1. RLE Infected Diabetic Foot Wound with dehisced surgical site: Will admit to [facility], maintain on IV vanc and zosyn pending Wound Cx and Wound MRSA PCR, plan repeat CBC in AM, continue affected extremity elevation above heart when seated and in bed, monitor erythema outline with VS checks, Podiatry consulted with pending discussions per their service with Dr. Wells and if no further intervention intention plan for likely pending OR, pending ID consultation request, PRN oral and IV pain regimen, await decision for OR and discuss antiplt therapies with Podiatry but if amenable would prefer continuation, offloading. #2. CAD, PAD: Status post PCI x 2 (cardiac) and RLE PCI x 1, will continue cilostazol, aspirin, Plavix if podiatry is amenable, continue Coreg, lisinopril, statin therapy. Per discussion with podiatry they will contact vascular surgery and review if any further interventions are needed. #3. Diabetes mellitus type II w/ polyneuropathy: Hold oral home regimen, ADA diet with n.p.o. status after midnight in case of OR needs, accu checks w/ ISS. #4. Chronic anemia/AOCD/iron deficiency anemia: Admission hemoglobin 11.6, baseline 11-12, stable, trend, continue iron supplementation. #5. Hypertension: Continue home regimen including Coreg, amlodipine, lisinopril with hold parameters as needed, PRN hydralazine. #6. Hyperlipidemia: We will continue patient on statin therapy #7. Chronic asthma: Continue home inhaler, PRN albuterol, HOB, IS parameters. #8. Anxiety and depression: We will continue patient home sertraline regimen. #9. DVT prophylaxis: SCDs, hold on chemoprophylaxis for possible intervention. Charges/Coding Visit Charges Inpatient E&M: 21402 Init Hosp L3
[2021-11-01] MEDS: Piperacil/Tazobactam 3.375 GM Q8 PREMIX IV (15:05)
--- NOTE | 2021-11-01 15:06 | PCM.CONS.GEN ---
Assessment & Plan Assessment/Plan (1) Other specified peripheral vascular diseases: (2) Acute osteomyelitis of metatarsal bone of right foot: (3) Diabetes mellitus with diabetic polyneuropathy: (4) Delayed wound healing: (5) Non-pressure chronic ulcer of other part of right foot with necrosis of bone: PLAN: I reviewed and discussed his case today. His recent chart review was performed. I do not recommend excisional debridement at this time. It is noted he was seen at the wound healing center earlier today. The following work up and care recommendations were made: Dressing: Dakin wet-to-dry daily Offload: Heel weightbearing right foot with surgical shoe. Use assistive device if needed Vascular: He is a known vasculopath and had prior interventions with Dr. Wells. His care plan was communicated with vascular specialist today and an outpatient angiogram is planned in the near future. To continue on Plavix. Infection: Development of local signs of infection was noted in the outpatient setting, and he was admitted due to his high risk status. He likely has osteomyelitis of the first metatarsal head still and it is noted his prior bone culture from surgery in September was positive for osteomyelitis. First ray resection versus transmetatarsal amputation is recommended as a definitive surgical procedure however I recommend he proceed forward with his updated angiogram and any potential vascular intervention first unless this turns into an acute purulent situation which is not noted today. His updated right foot x-ray demonstrated erosions the lateral first metatarsal head there is no soft tissue emphysema or foreign body or other acute injuries. His white blood cell count is 6.8, ESR 20, C-reactive protein 14. He may not be mounting a full systemic reaction due to his immunocompromise status however he does have local erythema extending along the plantar margin of his open amputation site. Infectious disease consultation for continuity of care is recommended. It is noted he was recently on oral ciprofloxacin. During this admission he was started on broad-spectrum IV antibiotics including vancomycin and Zosyn. Pain: Morphine ordered as needed for pain Host factors: He has multiple comorbidities including diabetes with neuropathy. Nutritional supplementation was recommended to optimize healing potential. [place] was ordered. Medical management per hospitalist is greatly appreciated. I answered all the patient's questions. Thank you for the consultation. Please not hesitate to call if you have any questions. I will follow him closely while in house. Natali Orosco DPM, [facility] [phone] HPI Consult Data Date of Consult: 11/01/21 HPI Narrative Reason for Consultation: Right foot infection open amputation site HPI Narrative: ROSETTA STEWART, is a 61 M with multiple comorbidities and known delayed healing was admitted for right foot infection. He has previously treated at the wound healing center in [place] and also at the [facility] in which he underwent previous hyperbaric oxygen therapy and comprehensive wound healing management. He had ongoing delays in healing and subsequently had an open hallux amputation performed with Dr. Caba on 09/25/2021. He is also completed antibiotic course under the management of infectious disease specialist. There was an apparent status change with continued devitalized tissue and local soft tissue infection. This is painful. He denies odor. He is very hopeless about the nonhealing wound and recurrent infection situation, and is struggling because this is affecting his quality of life. [facility] Medical History (Updated 11/01/21 @ 16:[address] Natali Orosco, JESSICA) Anxiety Asthma Asthma CAD (coronary artery disease) Chest pain Coronary artery disease Delayed wound healing Depression Diabetes mellitus DM2 (diabetes mellitus, type 2) Hallux limitus of right foot Hallux limitus of right foot Heart disease HTN (hypertension) Myocardial infarct Non-smoker Osteomyelitis PAD (peripheral artery disease) Toe infection Type 2 diabetes mellitus with diabetic polyneuropathy Home Medications albuterol sulfate 1 - 2 puff INHALATION Q4H PRN PRN 09/17/20 [History Last Taken Unknown] aspirin 81 mg PO DAILY@0800 09/17/20 [History Last Taken 11/01/21] carvedilol 6.25 mg PO BID 09/17/20 [History Last Taken 11/01/21] clopidogrel 75 mg PO DAILY 09/17/20 [History Last Taken 09/24/21 08:00] fluticasone propionate 2 puff IH DAILY 09/17/20 [History Last Taken 11/01/21] glimepiride 8 mg PO DAILY 09/17/20 [History Last Taken 11/01/21] metformin 1,000 mg PO BID 09/17/20 [History Last Taken 11/01/21] sertraline 100 mg PO DAILY 09/17/20 [History Last Taken 11/01/21] Januvia 100 mg PO DAILY 05/06/21 [History Last Taken 11/01/21] Nexletol 180 mg PO DAILY 07/10/21 [History Last Taken 09/24/21 08:00] amlodipine 10 mg PO DAILY 07/10/21 [History Last Taken 11/01/21] cilostazol 100 mg PO BID 07/10/21 [History Last Taken 09/24/21 08:00] ezetimibe 10 mg PO DAILY 07/10/21 [History Last Taken 09/24/21 08:00] ciprofloxacin HCl [Cipro] 500 mg PO BID #20 tab 09/27/21 [Rx Last Taken 11/01/21] Allergy/AdvReac Type Severity Reaction Status Date / Time No Known Allergies Allergy Verified 11/01/21 11:55 Family History (Updated 11/01/21 @ 15:[address] Katia Carrizales MD) Mother Diabetes Hypertension Father Diabetes Hypertension Surgical History (Updated 11/01/21 @ 15:[address] Katia Carrizales MD) History of coronary artery stent placement S/P peripheral artery angioplasty with stent placement Status post right foot surgery Social History (Updated 11/01/21 @ 15:[address] Katia Carrizales MD) household members: none Smoking Status: Never smoker alcohol intake: never substance use type: does not use ROS Constitutional Constitutional: Reports fatigue; Denies chills or fever(s) Cardiovascular Cardiovascular: Denies chest pain Respiratory/Chest Respiratory/Chest: Denies cough Gastrointestinal Gastrointestinal: Denies nausea or vomiting Integumentary Integumentary: Reports erythema, wounds and other Neurologic Neurologic: Reports paresthesias Psychiatric Psychiatric: Reports anxiety and depression Physical Exam Const alert, oriented x3 and no apparent distress General Appearance: cooperative and comfortable HEENT normocephalic Lymph Lymphatic: no lymphedema noted Extremity Peripheral Pulses: Negative for posterior tibial pulses present or dorsalis pedis pulses present Skin Wound Narrative: First metatarsophalangeal joint stump ulceration site is open plantarly and dorsally extending proximally to the neck of the first metatarsal bone with exposed bone of the first metatarsal head which is aguilar in appearance and dusky. The head of the first metatarsal bone is soft to palpation. Surrounding tissue demonstrates mixed fibrogranular tissue with thick yellow, goopy, nonviable fibrotic tissue. There is localized rubor about the margins of the wound with no increased temperature to palpation. Wound demonstrates no purulent drainage or malodor or crepitus or palpable fluctuance. Wound margins demonstrate hyperkeratotic tissue and eschar. mild adjacent erythema to plantar margin only. Neuro oriented x3 and moves all extremities Motor Exam: strength 5/5 throughout and clonus absent Lab / Micro Data Result Diagrams: 11/01/21 12:50 11/01/21 12:50 Labs: Laboratory Results - last 24 hr 11/01/21 12:50: WBC 6.8, RBC 4.34 L, Hgb 11.6 L, Hct 34.4 L, MCV 79.3 L, MCH 26.7 L, MCHC 33.7, RDW Std Deviation 39.2, RDW Coeff of Divya 13.7, Plt Count 210, MPV 9.8, Immature Gran % (Auto) 0.900, Neut % (Auto) 74.1 H, Lymph % (Auto) 17.3 L, Wal[place] % (Auto) 4.6, Eos % (Auto) 2.8, Baso % (Auto) 0.3, Absolute Neuts (auto) 5.0, Absolute Lymphs (auto) 1.17, Nucleated RBC % 0, ESR 20 11/01/21 12:50: Sodium 139, Potassium 4.1, Chloride 107, Carbon Dioxide 24.0, Anion Gap 8, BUN 14, Creatinine 1.42 H, Estim Creat Clear Calc 52.18, Est GFR (MDRD) Af Amer 65, Est GFR (MDRD) Non-Af 54 L, BUN/Creatinine Ratio 9.9 L, Glucose 231 H, Calcium 9.6, Total Bilirubin 0.30, AST 14 L, ALT 29, Alkaline Phosphatase 104, C-React Prot Ext Range 14.00 H, Total Protein 7.2, Albumin 3.8, Globulin 3.4, Albumin/Globulin Ratio 1.1 Micro: Microbiology 11/01/21 12:43 Wound - Tissue Gram Stain - Final Radiology Impression Foot X-Ray 11/01/21 13:08 IMPRESSION: Amputation of the first digit with exposure of the first metatarsal head and erosion of the lateral aspect of the first metatarsal head, worrisome for osteomyelitis. Electronically Signed: Agustín Ellis MD at 13:51 EDT Reading Location ID and State: [facility] / [place] Tel , Service support ,
[2021-11-01 15:31] LABS: Magnesium 1.6 mg/dL (1.6-2.6)
--- NOTE | 2021-11-01 15:31 | CM.ED ---
RN CM Assessment Introduced role of RN CM to patient with Dr Carrizales and Dr Orosco at bedside.? Patient is alert, oriented and able?to participate in RN CM Assessment. ?Care providers, pharmacy, and demographics verified. Admit Dx: IP for Right Diabetic Foot Wound Re-Admit: No. Was admitted Sep 2021 with IA completed on 09/24/21. Barriers/Issues: Patient appears with statements of depression with his medical condition. Voices that he has done everything that has been asked of him re: wound care, f/u, losing weight and managing diabetes. Plan per Dr Orosco- will call Estefany Wells and make sure no they do not plan to do Vascular intervention- if not plan to take to OR and amputate more of the bone to the right metatarsal area and Abx. If additional vascular intervention needed- plan to treat with Abx/possible washout. Patient no longer with wound vac. Has been seeing wound clinic. Patient voices he does not want to lose his whole foot or that would be the end to him. Patient states has been on antidepressants in the past but they did not help. States that his siblings do not help/get along with his parents so he is the one that has to care for his mother. PCP: Earle Malagon Specialists: Pod- Kwesi, Deisic- Russell Preferred Pharmacy: [facility] Insurance: Welcome Rx Benefit: Yes? LNOK: Mother Caryl Vargas LW/HPOA: None Living Arrangements: Lives alone in [facility] w/2 steps to enter home.? ADL?s: Ambulates with crutches and independent with ADLs Transportation: Patient drives DME: Glucometer, Crutches, Knee scooter HHC: Past [facility] SNF: None Goal: Home and needs TBD based off of plan. Aware RNCM will continue to follow should any needs arise. DC PLAN: Home and RNCM to f/u plan and DC needs. SELWYN Mcnulty
[2021-11-01 15:44] VITALS: BMI 30.1
[2021-11-01 16:01] VITALS: BP 173/68; PULSE 74; RESP 16; TEMP 36.4; O2SAT 97
[2021-11-01 16:51] LABS: Bedside Glucose 80 mg/dL (74-106)
[2021-11-01 17:14] LABS: M R Staph aureus DNA By PCR Negative (Negative); Probe Check PASS; Specimen Processing Control PASS; Staph aureus DNA By PCR NEGATIVE (Negative)
--- NOTE | 2021-11-01 17:42 | PCM.RX.CS ---
Consult Pharmacy has been consulted to manage selected antiobiotic: Vancomycin Type of Consult: New start Suspected Infection: Skin/Soft tissue Labs: Sodium 139 mmol/L (136-145) 11/01/21 12:50 Potassium 4.1 mmol/L (3.5-5.1) 11/01/21 12:50 Chloride 107 mmol/L (98-107) 11/01/21 12:50 Carbon Dioxide 24.0 mmol/L (21.0-32.0) 11/01/21 12:50 Anion Gap 8 (5-15) 11/01/21 12:50 BUN 14 mg/dL (7-18) 11/01/21 12:50 Creatinine 1.42 mg/dL (0.70-1.30) H 11/01/21 12:50 Est GFR (MDRD) Af Amer 65 mL/min (>60) 11/01/21 12:50 Est GFR (MDRD) Non-Af 54 mL/min (>60) L 11/01/21 12:50 BUN/Creatinine Ratio 9.9 RATIO (10-20) L 11/01/21 12:50 Glucose 231 mg/dL (74-106) H 11/01/21 12:50 Microbiology: Microbiology 11/01/21 12:43 Wound - Tissue Gram Stain - Final Goal Trough: 15-20 mcg/mL Pharmacy Plan for Drug Dosing: NEW START IV VANCOMYCIN Consulting Physician: DR. LAKHANI Indication: Diabetic Foot Infection Goal Trough: 15-20 SrCr: 1.42 CrCl: 52 mL/min Comments: 1st dose of 1250mg IV x1 ordered and administered in ED 11/01/21 @1604 Vancomcyin Dose: 1g IV Q12hr to start 11/02/21 @0400 Pending Level: 11/03/21 @0330, prior to 4th total dose per protocol Pharmacy Service will continue to monitor and adjust dosing as required.
[2021-11-01 19:08] VITALS: PULSE 78; RESP 16; O2SAT 94
[2021-11-01] MEDS: Budesonide Respules 0.5 MG/2 ML AMPUL.NEB. INHALATION (19:08)
[2021-11-01] MEDS: Ipratropium/Albuterol Sulfate 3 ML AMPUL.NEB INHALATION (19:08)
[2021-11-01] MEDS: Carvedilol 6.25 MG Tablet PO (21:21)
[2021-11-01] MEDS: Atorvastatin Calcium 20 MG Tablet PO (21:21)
[2021-11-01] MEDS: DAKIN'S SOL HALF STRENGTH (=0.25%) 1 APPLIC TOPICAL (21:21)
[2021-11-01] MEDS: Glucerna Shake 120 ML LIQUID PO (21:23)
[2021-11-01] MEDS: Insulin Lispro 100 UNIT/ML INSULN.PEN SC (21:26)
[2021-11-01] MEDS: Morphine 2 MG/ML Syringe IV (21:33)
[2021-11-01 21:39] VITALS: BP 155/79; PULSE 83; RESP 17; TEMP 36.6; O2SAT 95
[2021-11-01 21:52] LABS: Bedside Glucose 312 mg/dL (74-106)
[2021-11-02] MEDS: Vancomycin IV 1,000 MG/200 ML BAG 200 MG IV ×2 (03:05→15:51)
[2021-11-02 03:14] VITALS: BP 156/71; PULSE 76; RESP 18; TEMP 36.4; O2SAT 95
[2021-11-02 05:39] LABS: Absolute Lymphocyte Count 1.36 X10^3/uL (0.83-4.51); Absolute Neutrophil Count 4.8 X10^3/uL (2.0-7.7); Basophil# 0.03 X10^3/uL; Basophil% 0.4 % (0-1); Eosinophil# 0.27 X10^3/uL; Eosinophils% 3.9 % (0-5); Hematocrit 32.7 % (40-54); Hemoglobin 10.5 g/dL (13.0-16.5); Lymphocyte # 1.36 X10^3/ul (0.83-4.51); Lymphocyte % 19.5 % (19-41); Mean Corp Hgb Conc 32.1 g/dL (32-36); Mean Corpuscular Hgb 25.4 pg (27.0-32.0); Mean Platelet Vol. 9.5 fl (6.2-12.0); Monocyte# 0.45 X10^3/uL; Monocyte% 6.5 % (0-10); NRBC Flagged by Analyzer 0 % (0-5); Neutrophil # 4.82 X10^3/uL (2.7-7.7); Neutrophil % 69.1 % (47-70); Platelet Count 187 K/mm3 (150-450); RBC Distribution Width CV 13.6 % (11.6-14.6); RBC Distribution Width SD 38.9 fl (35.1-43.9); Red Blood Count 4.14 M/mm3 (4.6-6.2)
--- NOTE | 2021-11-02 06:13 | PCM.PN.HOSP ---
Subjective Subjective Patient with no acute events overnight per self and per nursing report. Given confirms no intention for operative intervention as vascular surgery prefers to have intervention prior to more definitive surgery patient diet allowed. Patient again very reticent about any interventions and notes he is only willing to have a certain section of the bone removed therefore discussions ensued about the fact that these limitations as opposed to definitive treatment are the reason he kept having to return to the hospital. Patient evaluated by infectious disease with [facility]. patient denies fevers, chills, nausea, emesis, abdominal pain, chest pain or dyspnea. Objective Data Objective Data Vital Signs: Vital Signs Temp Pulse Resp BP Pulse Ox 97.6 F L 76 18 156/71 H 95 11/02/21 03:14 11/02/21 03:14 11/02/21 03:14 11/02/21 03:14 11/02/21 03:14 Oxygen Delivery Method Room Air Weight: 198 lb Body Mass Index (BMI) 30.1 Intake & Output: Intake and Output for Last 24 Hours 10/31/21 11/01/21 11/02/21 23:59 23:59 23:59 Intake Total 1125 / 1125 250 / 250 Balance 1125 / 1125 250 / 250 Lab / Micro Data Result Diagrams: 11/02/21 05:24 11/02/21 05:24 Labs: Laboratory Results - last 24 hr 11/01/21 12:50: WBC 6.8, RBC 4.34 L, Hgb 11.6 L, Hct 34.4 L, MCV 79.3 L, MCH 26.7 L, MCHC 33.7, RDW Std Deviation 39.2, RDW Coeff of Divya 13.7, Plt Count 210, MPV 9.8, Immature Gran % (Auto) 0.900, Neut % (Auto) 74.1 H, Lymph % (Auto) 17.3 L, [place] % (Auto) 4.6, Eos % (Auto) 2.8, Baso % (Auto) 0.3, Absolute Neuts (auto) 5.0, Absolute Lymphs (auto) 1.17, Nucleated RBC % 0, ESR 20 11/01/21 12:50: Sodium 139, Potassium 4.1, Chloride 107, Carbon Dioxide 24.0, Anion Gap 8, BUN 14, Creatinine 1.42 H, Estim Creat Clear Calc 52.18, Est GFR (MDRD) Af Amer 65, Est GFR (MDRD) Non-Af 54 L, BUN/Creatinine Ratio 9.9 L, Glucose 231 H, Calcium 9.6, Total Bilirubin 0.30, AST 14 L, ALT 29, Alkaline Phosphatase 104, C-React Prot Ext Range 14.00 H, Total Protein 7.2, Albumin 3.8, Globulin 3.4, Albumin/Globulin Ratio 1.1 11/01/21 12:50: Magnesium 1.6 11/01/21 15:24: S.aureus Protein A PCR NEGATIVE, MRSA (PCR) Negative 11/01/21 16:47: POC Glucose 80 11/01/21 21:26: POC Glucose 312 H 11/02/21 05:24: WBC 7.0, RBC 4.14 L, Hgb 10.5 L, Hct 32.7 L, MCV 79.0 L, MCH 25.4 L, MCHC 32.1, RDW Std Deviation 38.9, RDW Coeff of Divya 13.6, Plt Count 187, MPV 9.5, Immature Gran % (Auto) 0.600, Neut % (Auto) 69.1, Lymph % (Auto) 19.5, [place] % (Auto) 6.5, Eos % (Auto) 3.9, Baso % (Auto) 0.4, Absolute Neuts (auto) 4.8, Absolute Lymphs (auto) 1.36, Nucleated RBC % 0 Micro: Microbiology 11/01/21 12:43 Wound - Tissue Gram Stain - Final Radiography Diagnostic Testing: Radiology Impression Foot X-Ray 11/01/21 13:08 IMPRESSION: Amputation of the first digit with exposure of the first metatarsal head and erosion of the lateral aspect of the first metatarsal head, worrisome for osteomyelitis. Electronically Signed: Agustín Ellis MD at 13:51 EDT , Physical Exam Narrative Physical Examination: General: Awake, alert, oriented x 3 and cooperative, seated upright in the MS bed in no apparent distress, notes pain current improved RLE. Skin: Normal color, normal turgor, no icterus, no cyanosis with RLE dressing in place, upon presentation noted first metatarsophalangeal joint stump ulceration site open extending proximally to the neck the first metatarsal bone with exposed first metatarsal head aguialr and dusky in appearance and soft to palpation with surrounding tissue with thick yellow discharge and fibrotic tissue. HEENT: AT/NC, EOMI, PERRLA, MMM. Lungs: CTA bilaterally, moderate effort, mild decrease BL bases, no rales, ronchi or wheezing. Heart: Regular rate and rhythm; no gallop, rub audible. Abdomen: Soft, overweight, NTTP, ND, normal BS. Extremities: No cyanosis, clubbing, mild right lower extremity swelling of the focal foot, see skin. Neurological: Patient awake, alert, oriented x 3, cognitive function intact; pupils equally reactive to light and accommodation, cranial nerves II-XII grossly normal, moving all 4 extremities although debilitated with right lower extremity pain with certain activities, no focal deficits, strength mildly globally decreased. Psychiatric: Affect appears again irritated with the course, frustrated, admitted upon presentation to anxiety and depression with his ongoing issues with his foot. Assessment & Plan Assessment/Plan (1) Acute osteomyelitis of metatarsal bone of right foot: PLAN: The patient is a 61 y/o M w/ PMHx: Diabetes mellitus type II with polyneuropathy, Asthma, Anxiety and Depression, Chronic anemia/AOCD, CAD s/p PCI x 2, PAD x 1 RLE, HTN, HLD, recent 09/25/21 right hallux first metatarsophalangeal joint resection following w/ Dr. Lazo with prior VAC with eventual infection with Dr. Pollock treatment with cipro with improvement of cellulitis however region has remained open and has not healed well with distal surgical site with nonviable/necrotic tissue, prominent exposed first metatarsal head noted to be dusky with yellow thick nonviable fibrotic tissue prompting the [facility] to refer patient to the [facility] ED 11/01/21 for evaluation. #1. RLE Infected Diabetic Foot Wound with dehisced surgical site: Admitted to MS, maintained on IV vanc and zosyn pending Wound Cx and Wound MRSA PCR, continue affected extremity elevation above heart when seated and in bed, monitor erythema outline with VS checks, Podiatry consulted and following, noted intention for potential upcoming vascular intervention per Dr. Wells therefore surgery consideration deferred, ID consulted and following, PRN oral and IV pain regimen, continue off loading. Patient once vascular surgery intervention performed, potentially in the next 1-2 weeks would then need surgery following. #2. CAD, PAD: Status post PCI x 2 (cardiac) and RLE PCI x 1, will continue cilostazol, aspirin, Plavix if podiatry is amenable, continue Coreg, lisinopril, statin therapy. From discussions w/ Dr. Wells he notes intention for upcoming re-evaluation and potential intervention. #3. Diabetes mellitus type II w/ polyneuropathy: Hold oral home regimen, ADA diet, accu checks w/ ISS. #4. Chronic anemia/AOCD/iron deficiency anemia: Admission hemoglobin 11.6, baseline 11-12, 11/02/21 Hgb 10.5, continue iron supplementation. #5. Hypertension: Continue home regimen including Coreg, amlodipine, lisinopril with hold parameters as needed, PRN hydralazine. #6. Hyperlipidemia: We will continue patient on statin therapy #7. Chronic asthma: Continue home inhaler, PRN albuterol, HOB, IS parameters. #8. Anxiety and depression: We will continue patient home sertraline regimen. #9. DVT prophylaxis: SCDs, lovenox. Charges/Coding Visit Charges Inpatient E&M: 03192 Subs Hosp L2
[2021-11-02 06:16] LABS: ALB/GLOB Ratio 1.1 RATIO (0.9-2.4); AST(SGOT) 13 U/L (15-37); Alanine Aminotransfer ALT/SGPT 29 U/L (16-61); Albumin, Serum 3.6 g/dL (3.2-5.0); Alkaline Phosphatase 101 U/L (45-117); Anion Gap 6 (5-15); BUN 14 mg/dL (7-18); BUN/Creat Ratio 10.9 RATIO (10-20); Calcium,Total 8.8 mg/dL (8.5-10.1); Chloride 105 mmol/L (98-107); Creatinine, Serum 1.29 mg/dL (0.70-1.30); EST Glomerular Filtration Rate 60 mL/min (>60); Est Glom Filt Rate - Afr Amer 72 mL/min (>60); Estimated Creatinine Clearance 57.44 ml/min; Globulin 3.2 g/dL (2.2-4.2); Glucose 255 mg/dL (74-106); Potassium 3.8 mmol/L (3.5-5.1); Protein, Total 6.8 g/dL (6.4-8.2); Sodium Level 137 mmol/L (136-145)
[2021-11-02] MEDS: Insulin Lispro 100 UNIT/ML INSULN.PEN SC ×4 (06:25→21:05)
[2021-11-02 06:31] LABS: Bedside Glucose 227 mg/dL (74-106)
[2021-11-02 07:00] VITALS: O2SAT 94
[2021-11-02] MEDS: Aspirin 81 MG TAB.CHEW PO (08:00)
[2021-11-02] MEDS: Ferrous Sulfate 325 MG Tablet PO (08:00)
[2021-11-02 08:43] VITALS: BP 158/68; PULSE 72; RESP 16; TEMP 36.7; O2SAT 95
--- NOTE | 2021-11-02 09:45 | CON.PCM.ID_ITS ---
Assessment & Plan Assessment/Plan (1) Diabetes mellitus with diabetic polyneuropathy: (2) Acute osteomyelitis of metatarsal bone of right foot: PLAN: Has been on cipro for PsA R foot osteo. Now with worsening, cont wit h vanc/zosyn while cxs pending. Will follow, thank you HPI Consult Data Date of Consult: 11/02/21 HPI Narrative HPI Narrative: ROSETTA STEWART, is a 61 M with DM neuropathy, PAD, recent admit in Sep for PsA R 1st toe osteo. Had amp done, but clearance cx (+), given 6 week course of cipro, nearly complete. Feeling fine, no new pain/redness/drainage, n o fever. At wound center found to have exposed bone, some necrosis. Admitted here on vanc/zosyn. Full ROS performed and neg except as noted above. [facility] Medical History Anxiety Asthma Asthma CAD (coronary artery disease) Chest pain Coronary artery disease Delayed wound healing Depression Diabetes mellitus DM2 (diabetes mellitus, type 2) Hallux limitus of right foot Hallux limitus of right foot Heart disease HTN (hypertension) Myocardial infarct Non-smoker Osteomyelitis PAD (peripheral artery disease) Toe infection Type 2 diabetes mellitus with diabetic polyneuropathy Home Medications albuterol sulfate 1 - 2 puff INHALATION Q4H PRN PRN 09/17/20 [History Last Taken Unknown] aspirin 81 mg PO DAILY@0800 09/17/20 [History Last Taken 11/01/21] carvedilol 6.25 mg PO BID 09/17/20 [History Last Taken 11/01/21] clopidogrel 75 mg PO DAILY 09/17/20 [History Last Taken 09/24/21 08:00] fluticasone propionate 2 puff IH DAILY 09/17/20 [History Last Taken 11/01/21] glimepiride 8 mg PO DAILY 09/17/20 [History Last Taken 11/01/21] metformin 1,000 mg PO BID 09/17/20 [History Last Taken 11/01/21] sertraline 100 mg PO DAILY 09/17/20 [History Last Taken 11/01/21] Januvia 100 mg PO DAILY 05/06/21 [History Last Taken 11/01/21] Nexletol 180 mg PO DAILY 07/10/21 [History Last Taken 09/24/21 08:00] amlodipine 10 mg PO DAILY 07/10/21 [History Last Taken 11/01/21] cilostazol 100 mg PO BID 07/10/21 [History Last Taken 09/24/21 08:00] ezetimibe 10 mg PO DAILY 07/10/21 [History Last Taken 09/24/21 08:00] ciprofloxacin HCl [Cipro] 500 mg PO BID #20 tab 09/27/21 [Rx Last Taken 11/01/21] Allergy/AdvReac Type Severity Reaction Status Date / Time No Known Allergies Allergy Verified 11/01/21 11:55 Family History (Updated 11/01/21 @ 15:[address] Katia Carrizales MD) Mother Diabetes Hypertension Father Diabetes Hypertension Surgical History (Updated 11/01/21 @ 15:[address] Katia Carrizales MD) History of coronary artery stent placement S/P peripheral artery angioplasty with stent placement Status post right foot surgery Social History (Updated 11/01/21 @ 15:[address] Katia Carrizales MD) household members: none Smoking Status: Never smoker alcohol intake: never substance use type: does not use Physical Exam Const alert, oriented x3 and no apparent distress General Appearance: cooperative HEENT normocephalic and head/scalp atraumatic Eyes PERRL and EOMs intact bilaterally Neck supple and No nodes Resp normal air movement and clear to auscultation bilaterally Cardio regular rate and regular rhythm GI soft to palpation, non-tender and non-distended Extremity no clubbing, cyanosis or edema Skin Skin Narrative: R foot wrapped Neuro CN's II-XII intact bilaterally Lab / Micro Data Result Diagrams: 11/02/21 05:24 11/02/21 05:24 Labs: Laboratory Results - last 24 hr 11/01/21 12:50: WBC 6.8, RBC 4.34 L, Hgb 11.6 L, Hct 34.4 L, MCV 79.3 L, MCH 26.7 L, MCHC 33.7, RDW Std Deviation 39.2, RDW Coeff of Divya 13.7, Plt Count 210, MPV 9.8, Immature Gran % (Auto) 0.900, Neut % (Auto) 74.1 H, Lymph % (Auto) 17.3 L, [place] % (Auto) 4.6, Eos % (Auto) 2.8, Baso % (Auto) 0.3, Absolute Neuts (auto) 5.0, Absolute Lymphs (auto) 1.17, Nucleated RBC % 0, ESR 20 11/01/21 12:50: Sodium 139, Potassium 4.1, Chloride 107, Carbon Dioxide 24.0, Anion Gap 8, BUN 14, Creatinine 1.42 H, Estim Creat Clear Calc 52.18, Est GFR (MDRD) Af Amer 65, Est GFR (MDRD) Non-Af 54 L, BUN/Creatinine Ratio 9.9 L, Glucose 231 H, Calcium 9.6, Total Bilirubin 0.30, AST 14 L, ALT 29, Alkaline Ethel sphatase 104, C-React Prot Ext Range 14.00 H, Total Protein 7.2, Albumin 3.8, Globulin 3.4, Albumin/Globulin Ratio 1.1 11/01/21 12:50: Magnesium 1.6 11/01/21 15:24: S.aureus Protein A PCR NEGATIVE, MRSA (PCR) Negative 11/01/21 16:47: POC Glucose 80 11/01/21 21:26: POC Glucose 312 H 11/02/21 05:24: WBC 7.0, RBC 4.14 L, Hgb 10.5 L, Hct 32.7 L, MCV 79.0 L, MCH 25.4 L, MCHC 32.1, RDW Std Deviation 38.9, RDW Coeff of Divya 13.6, Plt Count 187, MPV 9.5, Immature Gran % (Auto) 0.600, Neut % (Auto) 69.1, Lymph % (Auto) 19.5, [place] % (Auto) 6.5, Eos % (Auto) 3.9, Baso % (Auto) 0.4, Absolute Neuts (auto) 4.8, Absolute Lymphs (auto) 1.36, Nucleated RBC % 0 11/02/21 05:24: Sodium 137, Potassium 3.8, Chloride 105, Carbon Dioxide 26.0, Anion Gap 6, BUN 14, Creatinine 1.29, Estim Creat Clear Calc 57.44, Est GFR (MDRD) Af Amer 72, Est GFR (MDRD) Non-Af 60, BUN/Creatinine Ratio 10.9, Glucose 255 H, Calcium 8.8, Total Bilirubin 0.30, AST 13 L, ALT 29, Alkaline Phosphatase 101, Total Protein 6.8, Albumin 3.6, Globulin 3.2, Albumin/Globulin Ratio 1.1 11/02/21 06:23: POC Glucose 227 H Micro: Microbiology 11/01/21 12:43 Wound - Tissue Gram Stain - Final Radiology Impression Foot X-Ray 11/01/21 13:08 IMPRESSION: Amputation of the first digit with exposure of the first metatarsal head and erosion of the lateral aspect of the first metatarsal head, worrisome for osteomyelitis. Electronically Signed: Agustín Ellis MD at 13:51 EDT ,
[2021-11-02] MEDS: DAKIN'S SOL HALF STRENGTH (=0.25%) 1 APPLIC TOPICAL (09:50)
[2021-11-02] MEDS: Carvedilol 6.25 MG Tablet PO ×2 (10:04→21:04)
[2021-11-02] MEDS: Sertraline 100 MG Tablet PO (10:05)
[2021-11-02] MEDS: amLODIPine 10 MG Tablet PO (10:05)
[2021-11-02] MEDS: Lisinopril 20 MG Tablet PO (10:05)
[2021-11-02] MEDS: Ezetimibe 10 MG Tablet PO (10:05)
[2021-11-02] MEDS: Glucerna Shake 120 ML LIQUID PO ×4 (10:10→21:03)
--- NOTE | 2021-11-02 10:56 | PN_ITS ---
Subjective Subjective This 61-year-old male with multiple comorbidities including diabetic neuropathy and peripheral vascular disease was seen bedside for open right hallux amputation that is nonhealing with residual osteomyelitis border. He denies fever, chill, nausea, vomiting this morning. He continues on antibiotics and was seen by infectious disease earlier today. His case was reviewed yesterday with vascular surgeon who plans to perform an additional angio with intervention in the outpatient setting. Objective Data Objective Data Vital Signs: Vital Signs Temp Pulse Resp BP Pulse Ox 98.0 F 72 16 158/68 H 95 11/02/21 08:43 11/02/21 08:43 11/02/21 08:43 11/02/21 08:43 11/02/21 08:43 Oxygen Delivery Method Room Air Weight: 90.8 kg Body Mass Index (BMI) 30.1 Intake & Output: Intake and Output for Last 24 Hours 10/31/21 11/01/21 11/02/21 23:59 23:59 23:59 Intake Total 1125 / 1125 250 / 250 Output Total 400 / 400 Balance 1125 / 1125 -150 / -150 Lab / Micro Data Result Diagrams: 11/02/21 05:24 11/02/21 05:24 Labs: Laboratory Results - last 24 hr 11/01/21 12:50: WBC 6.8, RBC 4.34 L, Hgb 11.6 L, Hct 34.4 L, MCV 79.3 L, MCH 26.7 L, MCHC 33.7, RDW Std Deviation 39.2, RDW Coeff of Divya 13.7, Plt Count 210, MPV 9.8, Immature Gran % (Auto) 0.900, Neut % (Auto) 74.1 H, Lymph % (Auto) 17.3 L, [place] % (Auto) 4.6, Eos % (Auto) 2.8, Baso % (Auto) 0.3, Absolute Neuts (auto) 5.0, Absolute Lymphs (auto) 1.17, Nucleated RBC % 0, ESR 20 11/01/21 12:50: Sodium 139, Potassium 4.1, Chloride 107, Carbon Dioxide 24.0, Anion Gap 8, BUN 14, Creatinine 1.42 H, Estim Creat Clear Calc 52.18, Est GFR (MDRD) Af Amer 65, Est GFR (MDRD) Non-Af 54 L, BUN/Creatinine Ratio 9.9 L, Glucose 231 H, Calcium 9.6, Total Bilirubin 0.30, AST 14 L, ALT 29, Alkaline Phosphatase 104, C-React Prot Ext Range 14.00 H, Total Protein 7.2, Albumin 3.8, Globulin 3.4, Albumin/Globulin Ratio 1.1 11/01/21 12:50: Magnesium 1.6 11/01/21 15:24: S.aureus Protein A PCR NEGATIVE, MRSA (PCR) Negative 11/01/21 16:47: POC Glucose 80 11/01/21 21:26: POC Glucose 312 H 11/02/21 05:24: WBC 7.0, RBC 4.14 L, Hgb 10.5 L, Hct 32.7 L, MCV 79.0 L, MCH 25.4 L, MCHC 32.1, RDW Std Deviation 38.9, RDW Coeff of Divya 13.6, Plt Count 187, MPV 9.5, Immature Gran % (Auto) 0.600, Neut % (Auto) 69.1, Lymph % (Auto) 19.5, [place] % (Auto) 6.5, Eos % (Auto) 3.9, Baso % (Auto) 0.4, Absolute Neuts (auto) 4.8, Absolute Lymphs (auto) 1.36, Nucleated RBC % 0 11/02/21 05:24: Sodium 137, Potassium 3.8, Chloride 105, Carbon Dioxide 26.0, Anion Gap 6, BUN 14, Creatinine 1.29, Estim Creat Clear Calc 57.44, Est GFR (MDRD) Af Amer 72, Est GFR (MDRD) Non-Af 60, BUN/Creatinine Ratio 10.9, Glucose 255 H, Calcium 8.8, Total Bilirubin 0.30, AST 13 L, ALT 29, Alkaline Phosphatase 101, Total Protein 6.8, Albumin 3.6, Globulin 3.2, Albumin/Globulin Ratio 1.1 11/02/21 06:23: POC Glucose 227 H Micro: Microbiology 11/01/21 12:43 Wound - Tissue Gram Stain - Final 11/01/21 12:43 Wound - Tissue Wound Culture - Preliminary GNR Poss Pseudomonas sp Radiography Diagnostic Testing: Radiology Impression Foot X-Ray 11/01/21 13:08 IMPRESSION: Amputation of the first digit with exposure of the first metatarsal head and erosion of the lateral aspect of the first metatarsal head, worrisome for osteomyelitis. Electronically Signed: Agustín Ellis MD at 13:51 EDT , Physical Exam Const alert, oriented x3 and no apparent distress General Appearance: cooperative and comfortable HEENT normocephalic Lymph Lymphatic: no lymphedema noted Extremity Peripheral Pulses: Negative for posterior tibial pulses present or dorsalis pedis pulses present Skin Wound Narrative: First metatarsophalangeal joint stump ulceration site is open plantarly and dorsally extending proximally to the neck of the first metatarsal bone with exposed bone of the first metatarsal head which is aguilar in appearance and dusky. The head of the first metatarsal bone is soft to palpation. Surrounding tissue demonstrates mixed fibrogranular tissue with thick yellow, goopy, nonviable fibrotic tissue. There is localized rubor about the margins of the wound with no increased temperature to palpation. Wound demonstrates no purulent drainage or malodor or crepitus or palpable fluctuance. Wound margins demonstrate hyperkeratotic tissue and eschar. mild adjacent erythema to plantar margin only reduced compared to exam yesterday. Neuro oriented x3 and moves all extremities Motor Exam: strength 5/5 throughout and clonus absent Assessment & Plan Assessment/Plan (1) Other specified peripheral vascular diseases: (2) Acute osteomyelitis of metatarsal bone of right foot: (3) Diabetes mellitus with diabetic polyneuropathy: (4) Delayed wound healing: (5) Non-pressure chronic ulcer of other part of right foot with necrosis of bone: PLAN: I reviewed and discussed his case today. I do not recommend additional debridement at this time. He had debridement performed yesterday at the wound healing center with misonix (selective ultrasound debridement). The following work up and care recommendations were made: Dressing: Dakin wet-to-dry daily Offload: Heel weightbearing right foot with surgical shoe. Use assistive device if needed Vascular: He is a known vasculopath and had prior interventions with Dr. Wells. His care plan was communicated with vascular specialist, and an outpatient angiogram is planned in the near future. To continue on Plavix. I recommend waiting for definitive foot surgery until after vascular surgery is completed unless this turns into an emergent infection situation. Infection: Development of local signs of infection was noted in the outpatient setting, and he was admitted due to his high risk status. He has osteomyelitis of the first metatarsal head still and it is noted his prior bone culture from surgery in September was positive for osteomyelitis. First ray resection versus transmetatarsal amputation is recommended as a definitive surgical procedure. ESR 20, C-reactive protein 14. He does not have leukocytosis. Infectious disease is on consult and recommendations are appreciated. Tentative culture results demonstrate gram-negative rods and final is pending. He continues on IV antibiotics, vancomycin and Zosyn. There is clinical improvement compared to yesterday. Pain: Morphine ordered as needed for pain Host factors: He has multiple comorbidities including diabetes with neuropathy. Nutritional supplementation was recommended to optimize healing potential. [place] was ordered. Medical management per hospitalist is greatly appreciated. I answered all the patient's questions. Please do not hesitate to call if you have any questions. I will follow him closely while in house. Natali Orosco DPM, [facility] [phone]
[2021-11-02 11:31] LABS: Bedside Glucose 268 mg/dL (74-106)
--- NOTE | 2021-11-02 11:36 | WOUNDNOTE ---
wound photo: right foot
--- NOTE | 2021-11-02 11:36 | WOUNDNOTE ---
wound photo: right foot
[2021-11-02] MEDS: Piperacil/Tazobactam 3.375 GM Q8 PREMIX IV ×2 (13:13→21:04)
--- NOTE | 2021-11-02 14:53 | CASEMGMT ---
Green sheet on chart for [facility]. CM to follow for further d/c planning/needs. Corina MENDOZA CM
[2021-11-02 16:31] LABS: Bedside Glucose 288 mg/dL (74-106)
[2021-11-02 21:00] VITALS: BP 175/74; PULSE 80; RESP 20; TEMP 36.4; O2SAT 95
[2021-11-02] MEDS: Atorvastatin Calcium 20 MG Tablet PO (21:04)
[2021-11-02 21:11] LABS: Bedside Glucose 363 mg/dL (74-106)
[2021-11-02] MEDS: Acetaminophen 325 MG Tablet 650 MG PO (21:12)
[2021-11-02] MEDS: oxyCODONE 5 MG Tablet PO (21:12)
[2021-11-03 03:23] VITALS: BP 137/69; PULSE 64; RESP 16; TEMP 36.4; O2SAT 96
[2021-11-03 04:11] LABS: Vancomycin, Trough Level 10.3 ug/mL (5.0-15.0)
--- NOTE | 2021-11-03 04:33 | PCM.RX.CS ---
Consult Pharmacy has been consulted to manage selected antiobiotic: Vancomycin Type of Consult: Follow-up Suspected Infection: Skin/Soft tissue Labs: Sodium 137 mmol/L (136-145) 11/02/21 05:24 Potassium 3.8 mmol/L (3.5-5.1) 11/02/21 05:24 Chloride 105 mmol/L (98-107) 11/02/21 05:24 Carbon Dioxide 26.0 mmol/L (21.0-32.0) 11/02/21 05:24 Anion Gap 6 (5-15) 11/02/21 05:24 BUN 14 mg/dL (7-18) 11/02/21 05:24 Creatinine 1.29 mg/dL (0.70-1.30) 11/02/21 05:24 Est GFR (MDRD) Af Amer 72 mL/min (>60) 11/02/21 05:24 Est GFR (MDRD) Non-Af 60 mL/min (>60) 11/02/21 05:24 BUN/Creatinine Ratio 10.9 RATIO (10-20) 11/02/21 05:24 Glucose 255 mg/dL (74-106) H 11/02/21 05:24 Vancomycin Trough 10.3 ug/mL (5.0-15.0) 11/03/21 03:46 Microbiology: Microbiology 11/01/21 12:43 Wound - Tissue Gram Stain - Final 11/01/21 12:43 Wound - Tissue Wound Culture - Preliminary GNR Poss Pseudomonas sp Goal Trough: 15-20 mcg/mL Pharmacy Plan for Drug Dosing: Pharmacy Service will continue to monitor and adjust dosing as required. TROUGH 10.3 AT 11HTS. INCREASE TO 1250MG Q12H AND FOLLOW UP TROUGH PRIOR TO 4TH DOSE Follow-Up Labs: Trough Vancomycin Labs to be done on [date and time ordered]: 11/04 @ 1600
[2021-11-03] MEDS: Piperacil/Tazobactam 3.375 GM Q8 PREMIX IV ×3 (05:13→22:07)
[2021-11-03] MEDS: 0.9% Saline Lock 10 ML Syringe IV (05:13)
[2021-11-03] MEDS: Enoxaparin 40 MG/0.4 ML Syringe SC (05:17)
--- NOTE | 2021-11-03 06:16 | PCM.PN.HOSP ---
Subjective Subjective Patient with no acute events overnight per self and per nursing report. Patient remains again resistant to aggressive interventions as far as surgery but yet continues to question why continues to have the infections which was again discussed at length this AM. Discussed that currently based on his cultures he has on preliminary wound culture Pseudomonas however anaerobic is pending and final is pending with planned de-escalation off at least vancomycin as MRSA screen is also negative to which she is amenable. Patient understands that we will need to make sure this cultures are finalized before he is discharged and he will need home health to be able to administer antibiotic therapy as well as confirmation with infectious disease to assure they agree with regimen. Patient denies fevers, chills, nausea, emesis, abdominal pain, chest pain or dyspnea. Objective Data Objective Data Vital Signs: Vital Signs Temp Pulse Resp BP Pulse Ox 97.6 F L 64 16 137/69 H 96 11/03/21 03:23 11/03/21 03:23 11/03/21 03:23 11/03/21 03:23 11/03/21 03:23 Oxygen Delivery Method Room Air Weight: 200 lb 2.876 oz Body Mass Index (BMI) 30.1 Intake & Output: Intake and Output for Last 24 Hours 11/01/21 11/02/21 11/03/21 23:59 23:59 23:59 Intake Total 1125 / 1125 750 / 750 110 / 110 Output Total 400 / 400 Balance 1125 / 1125 350 / 350 110 / 110 Lab / Micro Data Result Diagrams: 11/02/21 05:24 11/02/21 05:24 Labs: Laboratory Results - last 24 hr 11/02/21 05:24: Sodium 137, Potassium 3.8, Chloride 105, Carbon Dioxide 26.0, Anion Gap 6, BUN 14, Creatinine 1.29, Estim Creat Clear Calc 57.44, Est GFR (MDRD) Af Amer 72, Est GFR (MDRD) Non-Af 60, BUN/Creatinine Ratio 10.9, Glucose 255 H, Calcium 8.8, Total Bilirubin 0.30, AST 13 L, ALT 29, Alkaline Phosphatase 101, Total Protein 6.8, Albumin 3.6, Globulin 3.2, Albumin/Globulin Ratio 1.1 11/02/21 06:23: POC Glucose 227 H 11/02/21 11:22: POC Glucose 268 H 11/02/21 16:24: POC Glucose 288 H 11/02/21 21:02: POC Glucose 363 H 11/03/21 03:46: Vancomycin Trough 10.3 Micro: Microbiology 11/01/21 12:43 Wound - Tissue Gram Stain - Final 11/01/21 12:43 Wound - Tissue Wound Culture - Preliminary GNR Poss Pseudomonas sp Physical Exam Narrative Physical Examination: General: Awake, alert, oriented x 3 and cooperative, seated upright in the MS bed in no apparent distress, denies any current right lower extremity pain, again discusses at length not understanding fully why he continues to have infections which was discussed. Skin: Normal color, normal turgor, no icterus, no cyanosis with RLE dressing in place, no drainage noted. HEENT: AT/NC, EOMI, PERRLA, MMM. Lungs: CTA bilaterally, moderate effort, mild decrease BL bases, no rales, ronchi or wheezing. Heart: Regular rate and rhythm; no gallop, rub audible. Abdomen: Soft, overweight, NTTP, ND, normal BS. Extremities: No cyanosis, clubbing, mild right lower extremity swelling of the focal foot, see skin. Neurological: Patient awake, alert, oriented x 3, cognitive function intact; pupils equally reactive to light and accommodation, cranial nerves II-XII grossly normal, moving all 4 extremities although debilitated with right lower extremity pain with certain activities, no focal deficits, strength mildly globally decreased. Psychiatric: Affect appears questions at length [place] continues to have issues which was again discussed at length, admitted upon presentation to anxiety and depression with his ongoing issues with his foot. Assessment & Plan Assessment/Plan (1) Acute osteomyelitis of metatarsal bone of right foot: PLAN: The patient is a 61 y/o M w/ PMHx: Diabetes mellitus type II with polyneuropathy, Asthma, Anxiety and Depression, Chronic anemia/AOCD, CAD s/p PCI x 2, PAD x 1 RLE, HTN, HLD, recent 09/25/21 right hallux first metatarsophalangeal joint resection following w/ Dr. Lazo with prior VAC with eventual infection with Dr. Pollock treatment with cipro with improvement of cellulitis however region has remained open and has not healed well with distal surgical site with nonviable/necrotic tissue, prominent exposed first metatarsal head noted to be dusky with yellow thick nonviable fibrotic tissue prompting the [facility] to refer patient to the [facility] ED 11/01/21 for evaluation. #1. RLE Preliminarily noted Pseudomonas aeroginosa Infected Diabetic Foot Wound with dehisced surgical site: Admitted to , maintained on IV vanc and zosyn pending Wound Cx and Wound MRSA PCR which eventually resulted with a negative MRSA PCR therefore vancomycin was de-escalate it and preliminary cultures 11/03/2021 noting Pseudomonas sensitive to Zosyn which is continued at this time pending finalization of the culture, continue affected extremity elevation above heart when seated and in bed, monitor erythema outline with VS checks, Podiatry consulted and following, noted intention for potential upcoming vascular intervention per Dr. Wells therefore surgery consideration deferred, ID consulted and following, PRN oral and IV pain regimen, continue off loading. Patient once vascular surgery intervention performed, potentially in the next 1-2 weeks would then need surgery following. Will await complete finalization of patient's cultures and once obtained will discuss with infectious disease for home health and discharge to home with IV regimen transition as currently from review of list only IV potential regimens are noted. #2. CAD, PAD: Status post PCI x 2 (cardiac) and RLE PCI x 1, will continue cilostazol, aspirin, Plavix if podiatry is amenable, continue Coreg, lisinopril, statin therapy. From discussions w/ Dr. Wells he notes intention for upcoming re-evaluation and potential intervention. #3. Diabetes mellitus type II w/ polyneuropathy: Hold oral home regimen, ADA diet, accu checks w/ ISS. #4. Chronic anemia/AOCD/iron deficiency anemia: Admission hemoglobin 11.6, baseline 11-12, 11/02/21 Hgb 10.5, continue iron supplementation. #5. Hypertension: Continue home regimen including Coreg, amlodipine, lisinopril with hold parameters as needed, PRN hydralazine. #6. Hyperlipidemia: We will continue patient on statin therapy #7. Chronic asthma: Continue home inhaler, PRN albuterol, HOB, IS parameters. #8. Anxiety and depression: We will continue patient home sertraline regimen. #9. DVT prophylaxis: SCDs, lovenox. Charges/Coding Visit Charges Inpatient E&M: 78561 Subs Hosp L2
[2021-11-03] MEDS: Insulin Lispro 100 UNIT/ML INSULN.PEN SC ×4 (06:46→22:06)
[2021-11-03 07:01] LABS: Bedside Glucose 211 mg/dL (74-106)
[2021-11-03 07:34] VITALS: O2SAT 95
[2021-11-03 08:00] VITALS: BP 158/71; PULSE 72; RESP 16; TEMP 36.6; O2SAT 97
[2021-11-03] MEDS: Aspirin 81 MG TAB.CHEW PO (08:08)
[2021-11-03] MEDS: Ferrous Sulfate 325 MG Tablet PO (08:08)
[2021-11-03] MEDS: Glucerna Shake 120 ML LIQUID PO ×4 (10:13→22:06)
[2021-11-03] MEDS: Carvedilol 6.25 MG Tablet PO ×2 (10:13→22:06)
[2021-11-03] MEDS: DAKIN'S SOL HALF STRENGTH (=0.25%) 1 APPLIC TOPICAL (10:13)
[2021-11-03] MEDS: Sertraline 100 MG Tablet PO (10:14)
[2021-11-03] MEDS: Lisinopril 20 MG Tablet PO (10:14)
[2021-11-03] MEDS: Ezetimibe 10 MG Tablet PO (10:14)
[2021-11-03] MEDS: amLODIPine 10 MG Tablet PO (10:14)
--- NOTE | 2021-11-03 11:20 | PCM.PROGNOTE ---
Subjective Subjective This 61-year-old male with multiple comorbidities including diabetic neuropathy and peripheral vascular disease was seen bedside for open right hallux amputation that is nonhealing with residual osteomyelitis border. He denies fever, chill, nausea, vomiting this morning. He denies pain. His foot is sensitive to touch. He has outpatient angio planned. Objective Data Objective Data Vital Signs: Vital Signs Temp Pulse Resp BP Pulse Ox 97.8 F 72 16 158/71 H 97 11/03/21 08:00 11/03/21 08:00 11/03/21 08:00 11/03/21 08:00 11/03/21 08:00 Oxygen Delivery Method Room Air Weight: 90.2 kg Body Mass Index (BMI) 30.1 Intake & Output: Intake and Output for Last 24 Hours 11/01/21 11/02/21 11/03/21 23:59 23:59 23:59 Intake Total 1125 / 1125 750 / 750 385 / 385 Output Total 400 / 400 Balance 1125 / 1125 350 / 350 385 / 385 Lab / Micro Data Result Diagrams: 11/02/21 05:24 11/02/21 05:24 Labs: Laboratory Results - last 24 hr 11/02/21 11:22: POC Glucose 268 H 11/02/21 16:24: POC Glucose 288 H 11/02/21 21:02: POC Glucose 363 H 11/03/21 03:46: Vancomycin Trough 10.3 11/03/21 06:45: POC Glucose 211 H Micro: Microbiology 11/01/21 12:43 Wound - Tissue Gram Stain - Final 11/01/21 12:43 Wound - Tissue Wound Culture - Preliminary Pseudomonas aeroginosa 11/01/21 12:43 Wound - Tissue Anaerobic Culture - Preliminary Physical Exam Const alert, oriented x3 and no apparent distress General Appearance: cooperative and comfortable HEENT normocephalic Lymph Lymphatic: no lymphedema noted Extremity Peripheral Pulses: Negative for posterior tibial pulses present or dorsalis pedis pulses present Skin Wound Narrative: First metatarsophalangeal joint stump ulceration site is open plantarly and dorsally extending proximally to the neck of the first metatarsal bone with exposed bone of the first metatarsal head which is aguilar in appearance and dusky. The head of the first metatarsal bone is soft to palpation. Surrounding tissue demonstrates mixed fibrogranular tissue with thick yellow, goopy, nonviable fibrotic tissue. There is localized rubor about the margins of the wound with no increased temperature to palpation. Wound demonstrates no purulent drainage or malodor or crepitus or palpable fluctuance. Wound margins demonstrate hyperkeratotic tissue and eschar. resolved adjacent erythema to plantar margin only reduced compared to exam yesterday. Neuro oriented x3 and moves all extremities Motor Exam: strength 5/5 throughout and clonus absent Assessment & Plan Assessment/Plan (1) Other specified peripheral vascular diseases: (2) Acute osteomyelitis of metatarsal bone of right foot: (3) Diabetes mellitus with diabetic polyneuropathy: (4) Delayed wound healing: (5) Non-pressure chronic ulcer of other part of right foot with necrosis of bone: PLAN: I reviewed and discussed his case today. I do not recommend additional debridement at this time. He had debridement performed recently at the wound healing center with misonix (selective ultrasound debridement). The following work up and care recommendations were made: Dressing: Dakin wet-to-dry daily Offload: Heel weightbearing right foot with surgical shoe. Use assistive device if needed Vascular: He is a known vasculopath and had prior interventions with Dr. Wells. His care plan was communicated with vascular specialist, and an outpatient angiogram is planned in the near future. To continue on Plavix. I recommend waiting for definitive foot surgery until after vascular surgery is completed unless this turns into an emergent infection situation. Infection: Development of local signs of infection was noted in the outpatient setting, and he was admitted due to his high risk status. He has osteomyelitis of the first metatarsal head still and it is noted his prior bone culture from surgery in September was positive for osteomyelitis. First ray resection versus transmetatarsal amputation is recommended as a definitive surgical procedure. ESR 20, C-reactive protein 14. He does not have leukocytosis. Infectious disease is on consult and recommendations are appreciated. Tentative culture results demonstrate Pseudomonas that is resistant to ciprofloxacin and levofloxacin as well, and final is pending. He continues on IV antibiotics, Zosyn. PICC line for home AB administration may be an option. There is clinical improvement compared to yesterday. Pain: Morphine ordered as needed for pain Host factors: He has multiple comorbidities including diabetes with neuropathy. Nutritional supplementation was recommended to optimize healing potential. Medical management per hospitalist is greatly appreciated. I answered all the patient's questions. Please do not hesitate to call if you have any questions. I will follow him closely while in house. Natali Orosco DPM, FACFAS [facility] [phone]
[2021-11-03 11:51] LABS: Bedside Glucose 266 mg/dL (74-106)
[2021-11-03 12:56] LABS: Absolute Lymphocyte Count 1.62 X10^3/uL (0.83-4.51); Absolute Neutrophil Count 4.2 X10^3/uL (2.0-7.7); Basophil# 0.03 X10^3/uL; Basophil% 0.5 % (0-1); Eosinophil# 0.28 X10^3/uL; Eosinophils% 4.3 % (0-5); Hematocrit 32.3 % (40-54); Hemoglobin 10.8 g/dL (13.0-16.5); Lymphocyte # 1.62 X10^3/ul (0.83-4.51); Lymphocyte % 24.6 % (19-41); Mean Corp Hgb Conc 33.4 g/dL (32-36); Mean Corpuscular Hgb 25.8 pg (27.0-32.0); Mean Corpuscular Volume 77.1 fL (80-94); Mean Platelet Vol. 10.1 fl (6.2-12.0); Monocyte# 0.45 X10^3/uL; Monocyte% 6.8 % (0-10); NRBC Flagged by Analyzer 0 % (0-5); Neutrophil # 4.16 X10^3/uL (2.7-7.7); Neutrophil % 63.2 % (47-70); Platelet Count 188 K/mm3 (150-450); RBC Distribution Width CV 13.7 % (11.6-14.6); Red Blood Count 4.19 M/mm3 (4.6-6.2); White Blood Count 6.6 K/mm3 (4.4-11.0)
[2021-11-03 13:08] LABS: Anion Gap 3 (5-15); BUN 16 mg/dL (7-18); Calcium,Total 8.9 mg/dL (8.5-10.1); Chloride 105 mmol/L (98-107); Creatinine, Serum 1.33 mg/dL (0.70-1.30); EST Glomerular Filtration Rate 58 mL/min (>60); Est Glom Filt Rate - Afr Amer 70 mL/min (>60); Estimated Creatinine Clearance 55.71 ml/min; Glucose 234 mg/dL (74-106); Potassium 3.9 mmol/L (3.5-5.1); Sodium Level 136 mmol/L (136-145)
[2021-11-03 14:00] VITALS: BP 145/75; PULSE 73; RESP 16; TEMP 36.3; O2SAT 96
--- NOTE | 2021-11-03 17:00 | CASEMGMT ---
Social Work This child welfare social worker following up with patient in room. Patient remembering this child welfare social worker from prior hospital stays and open to speaking with this child welfare social worker. Patient acknowledging to have not wanted to speak with child welfare social worker in ED, I asked her to leave. This child welfare social worker explaining child welfare social worker role and reason for why social work is checking in with patient. Patient voiced understanding and states just seems like I can't get any solution. Patient reports to be referring to patient foot when talking about solutions. Patient states to have seen so many doctors. Patient states to be discouraged with patient health status and no progress. Patient continues to decline mental health resources and states just fix my foot. Patient forward focused in regards to thinking about summer and taking care of my yard. 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 This child welfare social worker provided active listening and support. Patient okay with further social work follow up throughout patient medical care, will just depend on my mood. Social work to continue to follow as needed. Sneha VALADEZ, WILBER
[2021-11-03 17:01] LABS: Bedside Glucose 321 mg/dL (74-106)
[2021-11-03 20:00] VITALS: BP 151/72; PULSE 73; RESP 16; TEMP 37.1; O2SAT 99
[2021-11-03] MEDS: Atorvastatin Calcium 20 MG Tablet PO (22:06)
[2021-11-03] MEDS: Acetaminophen 325 MG Tablet 650 MG PO (22:08)
[2021-11-03 22:21] LABS: Bedside Glucose 302 mg/dL (74-106)
[2021-11-04] VITALS (7 sets, daily range): BP systolic 146–152; BP diastolic 67–80; PULSE 67–75; RESP 16–20; TEMP 36.4–37; O2SAT 96–98
--- NOTE | 2021-11-04 06:26 | PN.HOSP_ITS ---
Subjective Subjective Patient with no acute vents overnight per self and per nursing report. Patient again continues to ask why this is happening to him and why continues to have infections. Discussed at length with the patient and he is very anxious and often times swearing profusely about prior podiatric surgeries that he felt may be were necessary. Discussed currently need finalization of cultures, repeat podiatry assessment as well as infectious disease evaluation given history with potential discharge pending antibiotic regimen needs likely Friday. Patient denies fevers, chills, nausea, emesis, abdominal pain, chest pain or dyspnea. Objective Data Objective Data Vital Signs: Vital Signs Temp Pulse Resp BP Pulse Ox 98.6 F 68 16 148/67 H 98 11/04/21 02:00 11/04/21 02:00 11/04/21 02:00 11/04/21 02:00 11/04/21 02:00 Oxygen Delivery Method Room Air Weight: 200 lb 2.876 oz Body Mass Index (BMI) 30.1 Intake & Output: Intake and Output for Last 24 Hours 11/02/21 11/03/21 11/04/21 23:59 23:59 23:59 Intake Total 750 / 750 485 / 725 290 / 290 Output Total 400 / 400 Balance 350 / 350 485 / 725 290 / 290 Lab / Micro Data Result Diagrams: 11/04/21 06:02 11/04/21 06:02 Labs: Laboratory Results - last 24 hr 11/03/21 03:46: WBC 6.6, RBC 4.19 L, Hgb 10.8 L, Hct 32.3 L, MCV 77.1 L, MCH 25.8 L, MCHC 33.4, RDW Std Deviation 38.0, RDW Coeff of Divya 13.7, Plt Count 188, MPV 10.1, Immature Gran % (Auto) 0.600, Neut % (Auto) 63.2, Lymph % (Auto) 24.6, [place] % (Auto) 6.8, Eos % (Auto) 4.3, Baso % (Auto) 0.5, Absolute Neuts (auto) 4.2, Absolute Lymphs (auto) 1.62, Nucleated RBC % 0 11/03/21 03:46: Sodium 136, Potassium 3.9, Chloride 105, Carbon Dioxide 28.0, Anion Gap 3 L, BUN 16, Creatinine 1.33 H, Estim Creat Clear Calc 55.71, Est GFR (MDRD) Af Amer 70, Est GFR (MDRD) Non-Af 58 L, BUN/Creatinine Ratio 12.0, Gluco se 234 H, Calcium 8.9 11/03/21 06:45: POC Glucose 211 H 11/03/21 11:28: POC Glucose 266 H 11/03/21 16:46: POC Glucose 321 H 11/03/21 21:59: POC Glucose 302 H Micro: Microbiology 11/01/21 12:43 Wound - Tissue Gram Stain - Final 11/01/21 12:43 Wound - Tissue Wound Culture - Preliminary Pseudomonas aeroginosa 11/01/21 12:43 Wound - Tissue Anaerobic Culture - Preliminary Physical Exam Narrative Physical Examination: General: Awake, alert, oriented x 3 and cooperative, seated upright in the MS, no acute distress but becomes. When he discusses prior surgical interventions. Skin: Normal color, normal turgor, no icterus, no cyanosis with RLE dressing in place, no drainage noted. HEENT: AT/NC, EOMI, PERRLA, MMM. Lungs: CTA bilaterally, moderate effort, mild decrease BL bases, no rales, ronchi or wheezing. Heart: Regular rate and rhythm; no gallop, rub audible. Abdomen: Soft, overweight, NTTP, ND, normal BS. Extremities: No cyanosis, clubbing, mild right lower extremity swelling of the focal foot, see skin. Neurological: Patient awake, alert, oriented x 3, cognitive function intact; pupils equally reactive to light and accommodation, cranial nerves II-XII grossly normal, moving all 4 extremities although debilitated with right lower extremity pain with certain activities, no focal deficits, strength mildly glob ally decreased. Psychiatric: Affect appears irritable, continues to question why he has infections, admits to underlying depression secondary to recent events., denies any suicidal plans. Assessment & Plan Assessment/Plan (1) Acute osteomyelitis of metatarsal bone of right foot: PLAN: The patient is a 61 y/o M w/ PMHx: Diabetes mellitus type II with polyneuropathy, Asthma, Anxiety and Depression, Chronic anemia/AOCD, CAD s/p PCI x 2, PAD x 1 RLE, HTN, HLD, recent 09/25/21 right hallux first metatarsoph alangeal joint resection following w/ Dr. Lazo with prior VAC with eventual infection with Dr. Pollock treatment with cipro with improvement of cellulitis however region has remained open and has not healed well with distal surgical site with nonviable/necrotic tissue, prominent exposed first metatarsal head noted to be dusky with yellow thick nonviable fibrotic tissue prompting the [facility] to refer patient to the [facility] ED 11/01/21 for evaluation. #1. RLE Preliminarily noted Pseudomonas aeroginosa Infected Diabetic Foot Wound with dehisced surgical site: Admitted to [facility], maintained on IV vanc and zosyn pending Wound Cx and Wound MRSA PCR which eventually resulted with a negative MRSA PCR therefore vancomycin was de-escalate it and preliminary cultures 11/03/2021 noting Pseudomonas sensitive to Zosyn which is continued at this time pending finalization of the culture, continue affected extremity elevation above heart when seated and in bed, monitor erythema outline with VS checks, Podiatry consulted and following, noted intention for potential upcoming vascular intervention per Dr. Wells therefore surgery consideration deferred, ID consulted and following, PRN oral and IV pain regimen, continue off loading. Patient once vascular surgery intervention performed, potentially in the next 1- 2 weeks would then need surgery following. Awaiting culture finalization as well as ID and podiatry reevaluation, possible discharge to home Friday or Friday pending antibiotic needs. #2. CAD, PAD: Status post PCI x 2 (cardiac) and RLE PCI x 1, will continue cilostazol, aspirin, Plavix if podiatry is amenable, continue Coreg, lisinopril, statin therapy. From discussions w/ Dr. Wells he notes intention for upcoming re-evaluation and potential intervention. #3. Diabetes mellitus type II w/ polyneuropathy: Hold oral home regimen, ADA diet, accu checks w/ ISS. #4. Chronic anemia/AOCD/iron deficiency anemia: Admission hemoglobin 11.6, baseline 11-12, 11/03/21 Hgb 12, continue iron supplementation. #5. Hypertension: Continue home regimen including Coreg, amlodipine, lisinopril with hold parameters as needed, PRN hydralazine. #6. Hyperlipidemia: We will continue patient on statin therapy #7. Chronic asthma: Continue home inhaler, PRN albuterol, HOB, IS parameters. #8. Anxiety and depression: We will continue patient home sertraline regimen. #9. DVT prophylaxis: SCDs, lovenox. Charges/Coding Visit Charges Inpatient E&M: 94779 Subs Hosp L2
[2021-11-04 06:41] LABS: Absolute Lymphocyte Count 1.31 X10^3/uL (0.83-4.51); Absolute Neutrophil Count 4.4 X10^3/uL (2.0-7.7); Basophil# 0.02 X10^3/uL; Basophil% 0.3 % (0-1); Eosinophil# 0.28 X10^3/uL; Eosinophils% 4.3 % (0-5); Hematocrit 35.2 % (40-54); Lymphocyte # 1.31 X10^3/ul (0.83-4.51); Lymphocyte % 20.2 % (19-41); Mean Corp Hgb Conc 34.1 g/dL (32-36); Mean Corpuscular Hgb 26.4 pg (27.0-32.0); Mean Corpuscular Volume 77.4 fL (80-94); Mean Platelet Vol. 9.5 fl (6.2-12.0); Monocyte# 0.44 X10^3/uL; Monocyte% 6.8 % (0-10); NRBC Flagged by Analyzer 0 % (0-5); Neutrophil # 4.37 X10^3/uL (2.7-7.7); Neutrophil % 67.5 % (47-70); Platelet Count 194 K/mm3 (150-450); RBC Distribution Width CV 13.8 % (11.6-14.6); RBC Distribution Width SD 38.8 fl (35.1-43.9); Red Blood Count 4.55 M/mm3 (4.6-6.2); White Blood Count 6.5 K/mm3 (4.4-11.0)
[2021-11-04] MEDS: Insulin Lispro 100 UNIT/ML INSULN.PEN SC ×4 (06:41→21:36)
[2021-11-04] MEDS: Enoxaparin 40 MG/0.4 ML Syringe SC (06:41)
[2021-11-04] MEDS: Piperacil/Tazobactam 3.375 GM Q8 PREMIX IV ×3 (06:42→21:36)
[2021-11-04 06:56] LABS: Bedside Glucose 273 mg/dL (74-106)
[2021-11-04 07:03] LABS: AST(SGOT) 19 U/L (15-37); Alanine Aminotransfer ALT/SGPT 30 U/L (16-61); Albumin, Serum 3.5 g/dL (3.2-5.0); Alkaline Phosphatase 101 U/L (45-117); Anion Gap 5 (5-15); BUN 16 mg/dL (7-18); BUN/Creat Ratio 12.9 RATIO (10-20); Calcium,Total 9.4 mg/dL (8.5-10.1); Chloride 104 mmol/L (98-107); Creatinine, Serum 1.24 mg/dL (0.70-1.30); EST Glomerular Filtration Rate 63 mL/min (>60); Est Glom Filt Rate - Afr Amer 76 mL/min (>60); Estimated Creatinine Clearance 59.76 ml/min; Globulin 3.5 g/dL (2.2-4.2); Glucose 265 mg/dL (74-106); Potassium 4.2 mmol/L (3.5-5.1); Sodium Level 134 mmol/L (136-145)
[2021-11-04] MEDS: Aspirin 81 MG TAB.CHEW PO (08:57)
[2021-11-04] MEDS: Ferrous Sulfate 325 MG Tablet PO (08:57)
[2021-11-04] MEDS: Carvedilol 6.25 MG Tablet PO ×2 (11:33→21:36)
[2021-11-04] MEDS: Sertraline 100 MG Tablet PO (11:33)
[2021-11-04] MEDS: amLODIPine 10 MG Tablet PO (11:34)
[2021-11-04] MEDS: Lisinopril 20 MG Tablet PO (11:34)
[2021-11-04] MEDS: Ezetimibe 10 MG Tablet PO (11:35)
[2021-11-04] MEDS: DAKIN'S SOL HALF STRENGTH (=0.25%) 1 APPLIC TOPICAL (12:15)
--- NOTE | 2021-11-04 12:35 | PCM.PROGNOTE ---
Subjective Subjective This 61-year-old male with multiple comorbidities including diabetic neuropathy and peripheral vascular disease was seen bedside for open right hallux amputation that is nonhealing with residual osteomyelitis border. He denies fever, chill, nausea, vomiting this morning. He denies pain. He has outpatient angio planned. He would like to return home soon. Objective Data Objective Data Vital Signs: Vital Signs Temp Pulse Resp BP Pulse Ox 98.3 F 70 18 146/80 H 96 11/04/21 10:30 11/04/21 10:30 11/04/21 10:30 11/04/21 10:30 11/04/21 10:30 Oxygen Flow Rate (L/min) 96 Oxygen Delivery Method Room Air Weight: 90.8 kg Body Mass Index (BMI) 30.1 Intake & Output: Intake and Output for Last 24 Hours 11/02/21 11/03/21 11/04/21 23:59 23:59 23:59 Intake Total 750 / 750 485 / 725 460 / 460 Output Total 400 / 400 750 / 750 Balance 350 / 350 485 / 725 -290 / -290 Lab / Micro Data Result Diagrams: 11/04/21 06:02 11/04/21 06:02 Labs: Laboratory Results - last 24 hr 11/03/21 03:46: WBC 6.6, RBC 4.19 L, Hgb 10.8 L, Hct 32.3 L, MCV 77.1 L, MCH 25.8 L, MCHC 33.4, RDW Std Deviation 38.0, RDW Coeff of Divya 13.7, Plt Count 188, MPV 10.1, Immature Gran % (Auto) 0.600, Neut % (Auto) 63.2, Lymph % (Auto) 24.6, [place] % (Auto) 6.8, Eos % (Auto) 4.3, Baso % (Auto) 0.5, Absolute Neuts (auto) 4.2, Absolute Lymphs (auto) 1.62, Nucleated RBC % 0 11/03/21 03:46: Sodium 136, Potassium 3.9, Chloride 105, Carbon Dioxide 28.0, Anion Gap 3 L, BUN 16, Creatinine 1.33 H, Estim Creat Clear Calc 55.71, Est GFR (MDRD) Af Amer 70, Est GFR (MDRD) Non-Af 58 L, BUN/Creatinine Ratio 12.0, Glucose 234 H, Calcium 8.9 11/03/21 16:46: POC Glucose 321 H 11/03/21 21:59: POC Glucose 302 H 11/04/21 06:02: WBC 6.5, RBC 4.55 L, Hgb 12.0 L, Hct 35.2 L, MCV 77.4 L, MCH 26.4 L, MCHC 34.1, RDW Std Deviation 38.8, RDW Coeff of Divya 13.8, Plt Count 194, MPV 9.5, Immature Gran % (Auto) 0.900, Neut % (Auto) 67.5, Lymph % (Auto) 20.2, [place] % (Auto) 6.8, Eos % (Auto) 4.3, Baso % (Auto) 0.3, Absolute Neuts (auto) 4.4, Absolute Lymphs (auto) 1.31, Nucleated RBC % 0 11/04/21 06:02: Sodium 134 L, Potassium 4.2, Chloride 104, Carbon Dioxide 25.0, Anion Gap 5, BUN 16, Creatinine 1.24, Estim Creat Clear Calc 59.76, Est GFR (MDRD) Af Amer 76, Est GFR (MDRD) Non-Af 63, BUN/Creatinine Ratio 12.9, Glucose 265 H, Calcium 9.4, Total Bilirubin 0.40, AST 19, ALT 30, Alkaline Phosphatase 101, Total Protein 7.0, Albumin 3.5, Globulin 3.5, Albumin/Globulin Ratio 1.0 11/04/21 06:38: POC Glucose 273 H Micro: Microbiology 11/01/21 12:43 Wound - Tissue Gram Stain - Final 11/01/21 12:43 Wound - Tissue Wound Culture - Final Pseudomonas aeroginosa Physical Exam Const alert, oriented x3 and no apparent distress General Appearance: cooperative and comfortable HEENT normocephalic Lymph Lymphatic: no lymphedema noted Extremity Peripheral Pulses: Negative for posterior tibial pulses present or dorsalis pedis pulses present Skin Wound Narrative: First metatarsophalangeal joint stump ulceration site is open plantarly and dorsally extending proximally to the neck of the first metatarsal bone with exposed bone of the first metatarsal head which is aguilar in appearance and dusky. The head of the first metatarsal bone is soft to palpation. Surrounding tissue demonstrates mixed fibrogranular tissue with nonviable fibrotic tissue. Wound demonstrates no purulent drainage or malodor or crepitus or palpable fluctuance. Wound margins demonstrate minimal eschar. resolved adjacent erythema to plantar margin only reduced compared to exam at the time of admission. Neuro oriented x3 and moves all extremities Assessment & Plan Assessment/Plan (1) Acute osteomyelitis of metatarsal bone of right foot: (2) Non-pressure chronic ulcer of other part of right foot with necrosis of bone: (3) Type 2 diabetes mellitus with foot ulcer: (4) Other specified peripheral vascular diseases: (5) Delayed wound healing: PLAN: I reviewed and discussed his case today. The following work up and care recommendations were made: Dressing: Dakin wet-to-dry daily Offload: Heel weightbearing right foot with surgical shoe. Use assistive device if needed Vascular: He is a known vasculopath and had prior interventions with Dr. Wells. His care plan was communicated with vascular specialist, and an outpatient angiogram is planned in the near future. To continue on Plavix. I recommend waiting for definitive foot surgery until after vascular surgery is completed unless this turns into an emergent infection situation. Infection: Development of local signs of infection was noted in the outpatient setting, and he was admitted due to his high risk status. He is afebrile with vital signs stable this morning. White blood cell count decreased to 6.5. He has osteomyelitis of the first metatarsal head still and it is noted his prior bone culture from surgery in September was positive for osteomyelitis. First ray resection versus transmetatarsal amputation is recommended as a definitive surgical procedure. Infectious disease is on consult and recommendations are appreciated. Tentative culture results demonstrate Pseudomonas that is resistant to ciprofloxacin and levofloxacin as well, and final is pending. He continues on IV antibiotics, Zosyn. PICC line for home AB administration may be an option. There is clinical improvement compared to onset of admission. Pain: Morphine ordered as needed for pain Host factors: He has multiple comorbidities including diabetes with neuropathy. Nutritional supplementation was recommended to optimize healing potential. Medical management per hospitalist is greatly appreciated. I answered all the patient's questions. Please do not hesitate to call if you have any questions. I will follow him closely while in house. To follow-up at the wound healing center at time of discharge. Natali Orosco DPM, [facility] [phone]
[2021-11-04 12:46] LABS: Bedside Glucose 218 mg/dL (74-106)
[2021-11-04] MEDS: Glucerna Shake 120 ML LIQUID PO ×2 (14:41→21:35)
[2021-11-04 17:26] LABS: Bedside Glucose 377 mg/dL (74-106)
[2021-11-04] MEDS: Acetaminophen 325 MG Tablet 650 MG PO (21:36)
[2021-11-04] MEDS: Atorvastatin Calcium 20 MG Tablet PO (21:41)
[2021-11-04 21:46] LABS: Bedside Glucose 348 mg/dL (74-106)
[2021-11-05 03:20] VITALS: BP 130/67; PULSE 66; RESP 18; TEMP 36.6; O2SAT 94
[2021-11-05] MEDS: Piperacil/Tazobactam 3.375 GM Q8 PREMIX IV ×3 (05:00→23:16)
[2021-11-05] MEDS: Enoxaparin 40 MG/0.4 ML Syringe SC (05:00)
[2021-11-05] MEDS: Insulin Lispro 100 UNIT/ML INSULN.PEN SC ×3 (06:41→16:06)
[2021-11-05 06:46] LABS: Bedside Glucose 270 mg/dL (74-106)
[2021-11-05 06:49] LABS: Absolute Lymphocyte Count 1.49 X10^3/uL (0.83-4.51); Absolute Neutrophil Count 5.1 X10^3/uL (2.0-7.7); Basophil# 0.02 X10^3/uL; Basophil% 0.3 % (0-1); Eosinophil# 0.27 X10^3/uL; Eosinophils% 3.6 % (0-5); Hematocrit 36.6 % (40-54); Hemoglobin 12.5 g/dL (13.0-16.5); Lymphocyte # 1.49 X10^3/ul (0.83-4.51); Lymphocyte % 20.1 % (19-41); Mean Corp Hgb Conc 34.2 g/dL (32-36); Mean Corpuscular Hgb 26.5 pg (27.0-32.0); Mean Corpuscular Volume 77.5 fL (80-94); Monocyte# 0.48 X10^3/uL; Monocyte% 6.5 % (0-10); NRBC Flagged by Analyzer 0 % (0-5); Neutrophil # 5.11 X10^3/uL (2.7-7.7); Neutrophil % 68.7 % (47-70); Platelet Count 212 K/mm3 (150-450); RBC Distribution Width CV 13.7 % (11.6-14.6); RBC Distribution Width SD 38.3 fl (35.1-43.9); Red Blood Count 4.72 M/mm3 (4.6-6.2); White Blood Count 7.4 K/mm3 (4.4-11.0)
[2021-11-05 07:13] LABS: ALB/GLOB Ratio 1.1 RATIO (0.9-2.4); AST(SGOT) 24 U/L (15-37); Alanine Aminotransfer ALT/SGPT 39 U/L (16-61); Albumin, Serum 3.8 g/dL (3.2-5.0); Alkaline Phosphatase 103 U/L (45-117); Anion Gap 7 (5-15); BUN 20 mg/dL (7-18); BUN/Creat Ratio 14.2 RATIO (10-20); Calcium,Total 9.1 mg/dL (8.5-10.1); Chloride 101 mmol/L (98-107); Creatinine, Serum 1.41 mg/dL (0.70-1.30); EST Glomerular Filtration Rate 54 mL/min (>60); Est Glom Filt Rate - Afr Amer 65 mL/min (>60); Estimated Creatinine Clearance 52.55 ml/min; Globulin 3.5 g/dL (2.2-4.2); Glucose 275 mg/dL (74-106); Potassium 4.3 mmol/L (3.5-5.1); Protein, Total 7.3 g/dL (6.4-8.2); Sodium Level 135 mmol/L (136-145)
[2021-11-05] MEDS: Ferrous Sulfate 325 MG Tablet PO (08:09)
[2021-11-05] MEDS: Aspirin 81 MG TAB.CHEW PO (08:09)
[2021-11-05] MEDS: Carvedilol 6.25 MG Tablet PO ×2 (08:10→23:12)
[2021-11-05] MEDS: Ezetimibe 10 MG Tablet PO (08:10)
[2021-11-05] MEDS: amLODIPine 10 MG Tablet PO (08:10)
[2021-11-05] MEDS: Sertraline 100 MG Tablet PO (08:10)
[2021-11-05] MEDS: Lisinopril 20 MG Tablet PO (08:10)
[2021-11-05] MEDS: Glucerna Shake 120 ML LIQUID PO ×2 (08:13→17:44)
[2021-11-05] MEDS: DAKIN'S SOL HALF STRENGTH (=0.25%) 1 APPLIC TOPICAL (08:17)
[2021-11-05 09:30] VITALS: BP 143/75; PULSE 68; RESP 14; TEMP 36.6; O2SAT 97
[2021-11-05 11:35] LABS: Bedside Glucose 268 mg/dL (74-106)
--- NOTE | 2021-11-05 12:50 | CASEMGMT ---
Addendum entered by Neyda Payne 11/05/21 13:32: Naa at [facility] aware pt to be sent home on iv antibx and script faxed to [facility] at this time. This RN CM to room and pt updated on all, voices understanding. Pt states no preference for infusion company as long as they are in-network. Pt states no concerns doing infusion at home with [facility]. PICC line ordered and referral faxed to [facility] at this time. CM to follow. Corina MENDOZA CM Original Note: Per Dr. Pollock, pt needs to go home with piperacillin-tazobactam 3.375 g IV every 8 hours. Message left with Naa at [facility] as pt is already active with them for SN. CM to follow. Corina MENDOZA CM
--- NOTE | 2021-11-05 13:20 | PN.ID_ITS ---
Physical Exam Narrative Feeling ok, no fever, no n/v/d. Const alert and no apparent distress General Appearance: cooperative Resp normal air movement and clear to auscultation bilaterally Cardio regular rate and regular rhythm GI soft to palpation, non-tender and non-distended Extremity no clubbing, cyanosis or edema Skin Skin Narrative: foot wrapped ID ID: Route of nutrition/ use of supplements: [] Nutritional Intake: [] IV Site: [] Hawley Catheter: [] Assessment & Plan Assessment/Plan (1) Diabetes mellitus with diabetic polyneuropathy: (2) Acute osteomyelitis of metatarsal bone of right foot: PLAN: Has been on cipro for PsA R foot osteo. Now with worsening, cx here now shows resistance to cipro. Will order picc, 6 weeks iv zosyn, stop date 12/13/21 with weekly labs, ID followup in 2-3 weeks. Will follow, d/w case management associate, wrote rxs
[2021-11-05] MEDS: Ammonium Lactate 225 gm Bottle 1 APPLIC TOPICAL ×2 (14:12→23:12)
--- NOTE | 2021-11-05 15:05 | WOUNDNOTE ---
wound photo: right foot
--- NOTE | 2021-11-05 15:06 | WOUNDNOTE ---
wound photo: right foot
[2021-11-05 16:36] LABS: Bedside Glucose 344 mg/dL (74-106)
[2021-11-05 16:44] VITALS: BP 146/69; PULSE 73; RESP 16; TEMP 36.8; O2SAT 93
--- NOTE | 2021-11-05 16:55 | PN.HOSP_ITS ---
Subjective Subjective No new complaints. Just bored being here and anxious to go home. Objective Data Objective Data Vital Signs: Vital Signs Temp Pulse Resp BP Pulse Ox 36.8 C 73 16 146/69 H 93 11/05/21 16:44 11/05/21 16:44 11/05/21 16:44 11/05/21 16:44 11/05/21 16:44 Oxygen Flow Rate (L/min) 96 Oxygen Delivery Method Room Air Weight: 87.2 kg Body Mass Index (BMI) 30.1 Intake & Output: Intake and Output for Last 24 Hours 11/03/21 11/04/21 11/05/21 23:59 23:59 23:59 Intake Total 485 / 725 1510 / 1630 820 / 820 Output Total 750 / 750 Balance 485 / 725 760 / 880 820 / 820 Lab / Micro Data Result Diagrams: 11/05/21 05:57 11/05/21 05:57 Labs: Laboratory Results - last 24 hr 11/04/21 17:19: POC Glucose 377 H 11/04/21 21:34: POC Glucose 348 H 11/05/21 05:57: WBC 7.4, RBC 4.72, Hgb 12.5 L, Hct 36.6 L, MCV 77.5 L, MCH 26.5 L, MCHC 34.2, RDW Std Deviation 38.3, RDW Coeff of Divya 13.7, Plt Count 212, MPV 10.0, Immature Gran % (Auto) 0.800, Neut % (Auto) 68.7, Lymph % (Auto) 20.1, [place] % (Auto) 6.5, Eos % (Auto) 3.6, Baso % (Auto) 0.3, Absolute Neuts (auto) 5.1, Absolute Lymphs (auto) 1.49, Nucleated RBC % 0 11/05/21 05:57: Sodium 135 L, Potassium 4.3, Chloride 101, Carbon Dioxide 27.0, Anion Gap 7, BUN 20 H, Creatinine 1.41 H, Estim Creat Clear Calc 52.55, Est GFR (MDRD) Af Amer 65, Est GFR (MDRD) Non-Af 54 L, BUN/Creatinine Ratio 14.2, Glucose 275 H, Calcium 9.1, Total Bilirubin 0.40, AST 24, ALT 39, Alkaline Phosphatase 103, Total Protein 7.3, Albumin 3.8, Globulin 3.5, Albumin/Globulin Ratio 1.1 11/05/21 06:40: POC Glucose 270 H 11/05/21 11:26: POC Glucose 268 H 11/05/21 16:03: POC Glucose 344 H Micro: Microbiology 11/01/21 12:43 Wound - Tissue Gram Stain - Final 11/01/21 12:43 Wound - Tissue Wound Culture - Final Pseudomonas aeroginosa 11/01/21 12:43 Wound - Tissue Anaerobic Culture - Final Physical Exam Const alert and no apparent distress HEENT head/scalp atraumatic Head and Scalp: normocephalic Skin Skin Narrative: Right foot wrapped, did not remove. Neuro Sensorium / Orientation: awake Psych affect normal Assessment & Plan Assessment/Plan (1) Acute osteomyelitis of metatarsal bone of right foot: PLAN: The patient is a 61 y/o M w/ PMHx: Diabetes mellitus type II with polyneuropathy, Asthma, Anxiety and Depression, Chronic anemia/AOCD, CAD s/p PCI x 2, PAD x 1 RLE, HTN, HLD, recent 09/25/21 right hallux first metatarsophalangeal joint resection following w/ Dr. Lazo with prior VAC with eventual infection with Dr. Pollock treatment with cipro with improvement of cellulitis however region has remained open and has not healed well with distal surgical site with nonviable/necrotic tissue, prominent exposed first metatarsal head noted to be dusky with yellow thick nonviable fibrotic tissue prompting the [facility] to refer patient to the [facility] ED 11/01/21 for evaluation. #1. RLE Preliminarily noted Pseudomonas aeroginosa Infected Diabetic Foot Wound with dehisced surgical site: Admitted to [place], maintained on IV vanc and zosyn pending Wound Cx and Wound MRSA PCR which eventually resulted with a negative MRSA PCR therefore vancomycin was de-escalate it and preliminary cultures 11/03/2021 noting Pseudomonas sensitive to Zosyn which is continued at this time pending finalization of the culture, continue affected extremity elevation above heart when seated and in bed, monitor erythema outline with VS checks, Podiatry consulted and following, noted intention for potential upcoming vascular intervention per Dr. Wells therefore surgery consideration deferred, ID consulted and following, PRN oral and IV pain regimen, continue off loading. Patient once vascular surgery intervention performed, potentially in the next 1- 2 weeks would then need surgery following. Culture shows Pseudomonas. Seen by infectious disease and plan is for IV piperacillin/tazobactam through December 13. Patient to follow-up with vascular surgery for PAD and then once that has been resolved and patient will undergo further surgical intervention with podiatry. #2. CAD, PAD: Status post PCI x 2 (cardiac) and RLE PCI x 1, will continue cilostazol, aspirin, Plavix if podiatry is amenable, continue Coreg, lisinopril, statin therapy. From discussions w/ Dr. Wells he notes intention for upcoming re-evaluation and potential intervention. #3. Diabetes mellitus type II w/ polyneuropathy: Hold oral home regimen, ADA diet, accu checks w/ ISS. #4. Chronic anemia/AOCD/iron deficiency anemia: Admission hemoglobin 11.6, baseline 11-12, 11/03/21 Hgb 12, continue iron supplementation. #5. Hypertension: Continue home regimen including Coreg, amlodipine, lisinopril with hold parameters as needed, PRN hydralazine. #6. Hyperlipidemia: We will continue patient on statin therapy #7. Chronic asthma: Continue home inhaler, PRN albuterol, HOB, IS parameters. #8. Anxiety and depression: We will continue patient home sertraline regimen. #9. DVT prophylaxis: kamran Urban. Disposition: Pending insurance authorization for his IV antibiotics. Charges/Coding Visit Charges Inpatient E&M: 37747 [facility] Hosp L1
--- NOTE | 2021-11-05 18:23 | PN_ITS ---
Subjective Subjective 61-year-old male seen bedside today for nonhealing wound to the right foot with exposed first metatarsal bone, osteomyelitis positive. Resting comfortably. He denies any nausea, vomiting, fever, chills, shortness of breath, or other constitutional symptoms. He states he is anxious, bored, and wants to go home. Objective Data Objective Data Vital Signs: Vital Signs Temp Pulse Resp BP Pulse Ox 98.3 F 73 16 146/69 H 93 11/05/21 16:44 11/05/21 16:44 11/05/21 16:44 11/05/21 16:44 11/05/21 16:44 Oxygen Flow Rate (L/min) 96 Oxygen Delivery Method Room Air Weight: 87.2 kg Body Mass Index (BMI) 30.1 Intake & Output: Intake and Output for Last 24 Hours 11/03/21 11/04/21 11/05/21 23:59 23:59 23:59 Intake Total 485 / 725 1510 / 1630 820 / 820 Output Total 750 / 750 Balance 485 / 725 760 / 880 820 / 820 Lab / Micro Data Result Diagrams: 11/05/21 05:57 11/05/21 05:57 Labs: Laboratory Results - last 24 hr 11/04/21 21:34: POC Glucose 348 H 11/05/21 05:57: WBC 7.4, RBC 4.72, Hgb 12.5 L, Hct 36.6 L, MCV 77.5 L, MCH 26.5 L, MCHC 34.2, RDW Std Deviation 38.3, RDW Coeff of Divya 13.7, Plt Count 212, MPV 10.0, Immature Gran % (Auto) 0.800, Neut % (Auto) 68.7, Lymph % (Auto) 20.1, [place] % (Auto) 6.5, Eos % (Auto) 3.6, Baso % (Auto) 0.3, Absolute Neuts (auto) 5.1, Absolute Lymphs (auto) 1.49, Nucleated RBC % 0 11/05/21 05:57: Sodium 135 L, Potassium 4.3, Chloride 101, Carbon Dioxide 27.0, Anion Gap 7, BUN 20 H, Creatinine 1.41 H, Estim Creat Clear Calc 52.55, Est GFR (MDRD) Af Amer 65, Est GFR (MDRD) Non-Af 54 L, BUN/Creatinine Ratio 14.2, Glucose 275 H, Calcium 9.1, Total Bilirubin 0.40, AST 24, ALT 39, Alkaline Phosphatase 103, Total Protein 7.3, Albumin 3.8, Globulin 3.5, Albumin/Globulin Ratio 1.1 11/05/21 06:40: POC Glucose 270 H 11/05/21 11:26: POC Glucose 268 H 11/05/21 16:03: POC Glucose 344 H Micro: Microbiology 11/01/21 12:43 Wound - Tissue Gram Stain - Final 11/01/21 12:43 Wound - Tissue Wound Culture - Final Pseudomonas aeroginosa 11/01/21 12:43 Wound - Tissue Anaerobic Culture - Final Physical Exam Skin Wound Narrative: First metatarsophalangeal joint stump ulceration site is open plantarly and dorsally extending proximally to the neck of the first metatarsal bone with exposed bone of the first metatarsal head which is aguilar in appearance and dusky. The head of the first metatarsal bone is soft to palpation. Surrounding tissue demonstrates mixed fibrogranular tissue with nonviable fibrotic tissue. Wound demonstrates no purulent drainage or malodor or crepitus or palpable fluctuance. Wound margins demonstrate minimal eschar. resolved adjacent erythema to plantar margin only reduced compared to exam at the time of admission. Assessment & Plan Assessment/Plan (1) Acute osteomyelitis of metatarsal bone of right foot: (2) Non-pressure chronic ulcer of other part of right foot with necrosis of bone: (3) Type 2 diabetes mellitus with foot ulcer: (4) Other specified peripheral vascular diseases: (5) Delayed wound healing: PLAN: I reviewed and discussed his case today. Evaluation of wound and dressing change performed consisting of Dakin wet-to-dry. The following work up and care recommendations were made: Dressing: Dakin wet-to-dry daily Offload: Heel weightbearing right foot with surgical shoe. Use assistive device if needed Vascular: He is a known vasculopath and had prior interventions with Dr. Wells. His care plan was communicated with vascular specialist, and an outpatient angiogram is planned in the near future. To continue on Plavix. I recommend waiting for definitive foot surgery until after vascular surgery is completed unless this turns into an emergent infection situation. Infection: Development of local signs of infection was noted in the outpatient setting, and he was admitted due to his high risk status. He is afebrile with vital signs stable. White blood cell count currently 7.4. He has osteomyelitis of the first metatarsal head still and it is noted his prior bone culture from surgery in September was positive for osteomyelitis. First ray resection versus transmetatarsal amputation is recommended as a definitive surgical procedure. Infectious disease is on consult and recommendations are appreciated. Tentative culture results demonstrate Pseudomonas that is resistant to ciprofloxacin and levofloxacin as well, and final is pending. He continues on IV antibiotics, Z osyn. He will undergo PICC line placement tomorrow per infectious disease and continue on IV Zosyn at home. There is clinical improvement compared to onset of admission. Pain: Morphine ordered as needed for pain Host factors: He has multiple comorbidities including diabetes with neuropathy. Nutritional supplementation was recommended to optimize healing potential. Medical management per hospitalist is greatly appreciated. I answered all the patient's questions. Please do not hesitate to call if you have any questions. I will follow him closely while in house. To follow-up at the wound healing center with Dr. Orosco at time of discharge. Dr. Kike Phoenix Jr., [facility] [phone]
[2021-11-05 21:08] VITALS: BP 149/80; PULSE 71; RESP 16; TEMP 36.4; O2SAT 97
[2021-11-05 23:08] VITALS: BP 149/67; PULSE 73; RESP 16; TEMP 36.5; O2SAT 96
--- NOTE | 2021-11-05 23:11 | PCM.PN.BLA ---
Progress Note Nurse reports blood glucose of 456. Patient is some medium dose correction scale insulin. 10 units lispro subcutaneous x1 ordered. Resume home oral hypoglycemic regimen. Continue to hold Metformin.
[2021-11-05] MEDS: 0.9% Saline Lock 10 ML Syringe IV ×2 (23:12→23:53)
[2021-11-05] MEDS: Atorvastatin Calcium 20 MG Tablet PO (23:12)
[2021-11-05] MEDS: Cilostazol 50 MG Tablet 100 MG PO (23:16)
[2021-11-05] MEDS: Insulin Lispro 100 UNIT/ML INSULN.PEN 10 UNIT SC (23:27)
[2021-11-06 00:15] LABS: Glucose 421 mg/dL (74-106)
[2021-11-06 02:16] LABS: Bedside Glucose 291 mg/dL (74-106)
[2021-11-06 03:29] VITALS: BP 119/75; PULSE 71; RESP 16; TEMP 36.5; O2SAT 93
[2021-11-06] MEDS: Enoxaparin 40 MG/0.4 ML Syringe SC (06:08)
[2021-11-06] MEDS: Insulin Lispro 100 UNIT/ML INSULN.PEN SC (06:09)
[2021-11-06] MEDS: Piperacil/Tazobactam 3.375 GM Q8 PREMIX IV (06:09)
[2021-11-06 07:06] LABS: Bedside Glucose 287 mg/dL (74-106)
[2021-11-06 07:41] LABS: Bedside Glucose 459 mg/dL (74-106)
[2021-11-06 07:41] LABS: Bedside Glucose 456 mg/dL (74-106)
[2021-11-06] MEDS: Clopidogrel Bisulfate 75 MG Tablet PO (08:38)
[2021-11-06] MEDS: Cilostazol 50 MG Tablet 100 MG PO (08:38)
[2021-11-06] MEDS: Lisinopril 20 MG Tablet PO (08:38)
[2021-11-06] MEDS: LINAGLIPTIN 5 MG TABLET PO (08:38)
[2021-11-06] MEDS: amLODIPine 10 MG Tablet PO (08:38)
[2021-11-06] MEDS: Ezetimibe 10 MG Tablet PO (08:38)
[2021-11-06] MEDS: Glimepiride 4 MG Tablet 8 MG PO (08:38)
[2021-11-06] MEDS: Glucerna Shake 120 ML LIQUID PO (08:38)
[2021-11-06] MEDS: Ferrous Sulfate 325 MG Tablet PO (08:39)
[2021-11-06] MEDS: Sertraline 100 MG Tablet PO (08:39)
[2021-11-06] MEDS: Aspirin 81 MG TAB.CHEW PO (08:39)
[2021-11-06] MEDS: Carvedilol 6.25 MG Tablet PO (08:39)
[2021-11-06 08:42] VITALS: BP 124/72; PULSE 83; RESP 16; TEMP 36.6; O2SAT 96
--- NOTE | 2021-11-06 09:22 | CASEMGMT ---
Addendum entered by Neyda Payne 11/06/21 10:43: Pt updated on all, voices understanding. Pt voices no further questions/concerns/needs. Corina MENDOZA CM Addendum entered by Neyad Payne 11/06/21 09:26: Call to Naa at [facility] and she states pt is covered at 100% and that they can get meds/equipment delivered by 1400 infusion time. Naa at [facility] updated. Dr. Pichardo aware. Corina MENDOZA CM Original Note: PICC documentation faxed to [facility] and [facility]. Corina MENDOZA CM
[2021-11-06] MEDS: DAKIN'S SOL HALF STRENGTH (=0.25%) 1 APPLIC TOPICAL (10:07)
[2021-11-06] MEDS: Ammonium Lactate 225 gm Bottle 1 APPLIC TOPICAL (10:24)
--- NOTE | 2021-11-06 11:05 | PCM.DC ---
Discharge Instructions Diet Discharge Diet: 1999 Calorie Control Diet Activity Weight Bearing Status: - (Heel weightbearing right foot with surgical shoe. Use assistive device if needed) Follow Up Care Test Results: Test results from this visit will be discussed in further detail at your follow-up appointment, if applicable. Discharge Plan Admission Admit Date/Time: 11/01/21 14:58 Primary Reason for Your Visit: right foot osteomyelitis Attending Provider: Peter Pichardo Primary Care Provider: Nitin Malagon Consulting Providers: Natali Orosco ; Sunday Pollock Instructions Additional Instructions / Restrictions: Foot dressing daily with Dakin wet-to-dry Heel weight-bear right foot with surgical shoe Discharge Orders/Prescriptions Prescriptions: New piperacillin-tazobactam 3.375 gram recon soln 3.375 g IV Q8H Qty: 114 RF: 0 HySept 0.25 % solution 1 applic topical DAILY Qty: 473 RF: 0 Continued fluticasone propionate 50 MCG blister with device 2 puff IH DAILY RF: 0 carvedilol 6.25 MG tablet 6.25 mg PO BID RF: 0 sertraline 100 MG tablet 100 mg PO DAILY RF: 0 clopidogrel 75 MG tablet 75 mg PO DAILY RF: 0 metformin 1,000 MG tablet 1,000 mg PO BID RF: 0 glimepiride 4 MG tablet 8 mg PO DAILY RF: 0 aspirin 81 MG tablet,chewable 81 mg PO DAILY@0800 RF: 0 albuterol sulfate 1 INHALER inhaler 1 - 2 puff INHALATION Q4H PRN PRN (Reason: Wheezing) RF: 0 Januvia 100 mg tablet 100 mg PO DAILY RF: 0 cilostazol 100 mg Tablet 100 mg PO BID RF: 0 amlodipine 10 mg Tablet 10 mg PO DAILY RF: 0 ezetimibe 10 mg Tablet 10 mg PO DAILY RF: 0 Nexletol 180 mg Tablet 180 mg PO DAILY RF: 0 Discontinued ciprofloxacin HCl [Cipro] 500 mg tablet 500 mg PO BID Qty: 20 RF: 0 Referrals / Follow Up: Adrien Wells MD [STAFF PHYSICIAN] - Within 2 Weeks Nitin Malagon MD [Primary Care Provider] - Natali Orosco DPM [STAFF PHYSICIAN] - (wound center) Disposition Disposition (needs filled in before D/C Order can be placed): Home Health Service
--- NOTE | 2021-11-06 11:11 | DS.PCM_ITS ---
Providers Date of Admission: 11/01/21 Primary Care Physician: Dr. Nitin Malagon MD Consultations 11/01/21 15:42 Consult: Infectious Disease Routine Consulting Provider: Sunday Pollock Reason for Consult: Diabetic foot, recurrent infection EMERGENT Consult: No Notified: Yes Date Notified: 11/01/21 Time Notified: 16:06 Method of Notification: Answering Service Consult: Podiatry Routine Consulting Provider: Natali Orosco Reason for Consult: Diabetic foot, known to you EMERGENT Consult: No Notified: Yes Date Notified: 11/01/21 Time Notified: 15:03 Method of Notification: per ED. 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 Comment: Reason for Consult:: wound to right foot Reason For Visit: RIGHT DIABETIC FOOT WOUND Diagnosis Discharge Diagnosis (1) Acute osteomyelitis of metatarsal bone of right foot: Status: Acute Code(s): M86.171 - Other acute osteomyelitis, right ankle and foot (2) Non-pressure chronic ulcer of other part of right foot with necrosis of bone: Status: Chronic Code(s): L97.514 - Non-pressure chronic ulcer of other part of right foot with necrosis of bone (3) Type 2 diabetes mellitus with foot ulcer: Status: Acute Code(s): E11.621 - Type 2 diabetes mellitus with foot ulcer; L97.509 - Non-pressure chronic ulcer of other part of unspecified foot with unspecified severity (4) Other specified peripheral vascular diseases: Status: Acute Code(s): I73.89 - Other specified peripheral vascular diseases (5) Delayed wound healing: Status: Acute Code(s): T14.8XXD - Other injury of unspecified body region, subsequent encounter Medications at Discharge Home Medications albuterol sulfate 1 - 2 puff INHALATION Q4H PRN PRN 09/17/20 aspirin 81 mg PO DAILY@0800 09/17/20 carvedilol 6.25 mg PO BID 09/17/20 clopidogrel 75 mg PO DAILY 09/17/20 fluticasone propionate 2 puff IH DAILY 09/17/20 glimepiride 8 mg PO DAILY 09/17/20 metformin 1,000 mg PO BID 09/17/20 sertraline 100 mg PO DAILY 09/17/20 Januvia 100 mg PO DAILY 05/06/21 Nexletol 180 mg PO DAILY 07/10/21 amlodipine 10 mg PO DAILY 07/10/21 cilostazol 100 mg PO BID 07/10/21 ezetimibe 10 mg PO DAILY 07/10/21 piperacillin-tazobactam 3.375 g IV Q8H #114 ea 11/05/21 sodium hypochlorite [HySept] 1 applic TOPICAL DAILY #473 ml 11/06/21 Hospital Course Operations None Procedures None Summary of Care Provided Minutes Spent on Discharge: 32 Hospital Course: The patient is a 61 y/o M w/ PMHx: Diabetes mellitus type II with polyneuropathy, Asthma, Anxiety and Depression, Chronic anemia/AOCD, CAD s/p PCI x 2, PAD x 1 RLE, HTN, HLD, recent 09/25/21 right hallux first metatarsophalangeal joint resection following w/ Dr. Lazo with prior VAC with eventual infection with Dr. Pollock treatment with cipro with improvement of cellulitis however region has remained open and has not healed well with distal surgical site with nonviable/necrotic tissue, prominent exposed first metatarsal head noted to be dusky with yellow thick nonviable fibrotic tissue prompting the [facility] to refer patient to the [facility] ED 11/01/21 for evaluation. #1. RLE Preliminarily noted Pseudomonas aeroginosa Infected Diabetic Foot Wound with dehisced surgical site: Admitted to [place], maintained on IV vanc and zosyn pending Wound Cx and Wound MRSA PCR which eventually resulted with a negative MRSA PCR therefore vancomycin was de-escalate it and preliminary cultures 11/03/2021 noting Pseudomonas sensitive to Zosyn which is continued at this time pending finalization of the culture, continue affected extremity elevation above heart when seated and in bed, monitor erythema outline with VS checks, Podiatry consulted and following, noted intention for potential upcoming vascular intervention per Dr. Wells therefore surgery consideration deferred, ID consulted and following, PRN oral and IV pain regimen, continue off loading. Patient once vascular surgery intervention performed, potentially in the next 1- 2 weeks would then need surgery following. Culture shows Pseudomonas. Seen by infectious disease and plan is for IV piperacillin/tazobactam through December 13. Patient to follow-up with vascular surgery for PAD and then once that has been resolved and patient will undergo further surgical intervention with podiatry. #2. CAD, PAD: Status post PCI x 2 (cardiac) and RLE PCI x 1, will continue cilostazol, aspirin, Plavix if podiatry is amenable, continue Coreg, lisinopril, statin therapy. From discussions w/ Dr. Wells he notes intention for upcoming re-evaluation and potential intervention. Physical Exam Const alert and oriented x3 General Appearance: cooperative and comfortable Extremity Extremity Narrative: right foot wrapped--did not remove. Psych affect normal Weight / BMI Weight Weight: 87.2 kg Body Mass Index (BMI) 30.1 ABG / Lab / Microbiology Data Result Diagrams: 11/05/21 05:57 11/05/21 23:39 Laboratory: Laboratory Results - last 24 hr 11/05/21 11:26: POC Glucose 268 H 11/05/21 16:03: POC Glucose 344 H 11/05/21 22:56: POC Glucose 459 H* 11/05/21 22:58: POC Glucose 456 H* 11/05/21 23:39: Glucose 421 H 11/06/21 02:03: POC Glucose 291 H 11/06/21 06:06: POC Glucose 287 H Microbiology: Microbiology 11/01/21 12:43 Wound - Tissue Gram Stain - Final 11/01/21 12:43 Wound - Tissue Wound Culture - Final Pseudomonas aeroginosa 11/01/21 12:43 Wound - Tissue Anaerobic Culture - Final D/C Instructions Discharge Diet: 2000 Calorie Control Diet Weight Bearing Status: - (Heel weightbearing right foot with surgical shoe. Use assistive device if needed) Meaningful Use Info Meaningful Use Diagnoses (Choose all that apply): None applicable Discharge Plan Admission Admit Date/Time: 11/01/21 14:58 Primary Reason for Your Visit: right foot osteomyelitis Attending Provider: Peter Pichardo Primary Care Provider: Nitin Malagon Consulting Providers: Natali Orosco ; Sunday Pollock Instructions Additional Instructions / Restrictions: Foot dressing daily with Dakin wet-to-dry Heel weight-bear right foot with surgical shoe Discharge Orders/Prescriptions Prescriptions: New piperacillin-tazobactam 3.375 gram recon soln 3.375 g IV Q8H Qty: 114 RF: 0 HySept 0.25 % solution 1 applic topical DAILY Qty: 473 RF: 0 Continued fluticasone propionate 50 MCG blister with device 2 puff IH DAILY RF: 0 carvedilol 6.25 MG tablet 6.25 mg PO BID RF: 0 sertraline 100 MG tablet 100 mg PO DAILY RF: 0 clopidogrel 75 MG tablet 75 mg PO DAILY RF: 0 metformin 1,000 MG tablet 1,000 mg PO BID RF: 0 glimepiride 4 MG tablet 8 mg PO DAILY RF: 0 aspirin 81 MG tablet,chewable 81 mg PO DAILY@0800 RF: 0 albuterol sulfate 1 INHALER inhaler 1 - 2 puff INHALATION Q4H PRN PRN (Reason: Wheezing) RF: 0 Januvia 100 mg tablet 100 mg PO DAILY RF: 0 cilostazol 100 mg Tablet 100 mg PO BID RF: 0 amlodipine 10 mg Tablet 10 mg PO DAILY RF: 0 ezetimibe 10 mg Tablet 10 mg PO DAILY RF: 0 Nexletol 180 mg Tablet 180 mg PO DAILY RF: 0 Discontinued ciprofloxacin HCl [Cipro] 500 mg tablet 500 mg PO BID Qty: 20 RF: 0 Referrals / Follow Up: Adrien Wells MD [STAFF PHYSICIAN] - Within 2 Weeks Nitin Malagon MD [Primary Care Provider] - Natali Orosco DPM [STAFF PHYSICIAN] - (wound center) Disposition Disposition (needs filled in before D/C Order can be placed): Home Health Service Charges/Coding Visit Charges Inpatient E&M: 12303 [facility] H[facility]
== END 2021-11-06 11:46 | disposition home health service (06) | DRG 638 ==
LOC: ED 12:29 → PCU 15:22
PROVIDERS: Admitting Provider Family Medicine; Emergency Provider Student in an Organized Health Care Education/Training Program; PCP Family Medicine
DX: E11.621 Type 2 diabetes mellitus with foot ulcer (principal); M86.171 Other acute osteomyelitis, right ankle and foot; T81.32XA Disruption of internal operation (surgical) wound, not elsewhere classified, initial encounter; D63.8 Anemia in other chronic diseases classified elsewhere; E11.42 Type 2 diabetes mellitus with diabetic polyneuropathy; L97.514 Non-pressure chronic ulcer of other part of right foot with necrosis of bone; B96.5 Pseudomonas (aeruginosa) (mallei) (pseudomallei) as the cause of diseases classified elsewhere; E11.51 Type 2 diabetes mellitus with diabetic peripheral angiopathy without gangrene; E11.69 Type 2 diabetes mellitus with other specified complication; E11.65 Type 2 diabetes mellitus with hyperglycemia; D50.9 Iron deficiency anemia, unspecified; I10 Essential (primary) hypertension; J45.909 Unspecified asthma, uncomplicated; I25.10 Atherosclerotic heart disease of native coronary artery without angina pectoris; E78.5 Hyperlipidemia, unspecified; F41.9 Anxiety disorder, unspecified; I25.2 Old myocardial infarction; F32.A Depression, unspecified; Z95.5 Presence of coronary angioplasty implant and graft; Z79.02 Long term (current) use of antithrombotics/antiplatelets; Z79.82 Long term (current) use of aspirin; Z79.84 Long term (current) use of oral hypoglycemic drugs; Z79.899 Other long term (current) drug therapy
CPT/HCPCS: 36415; 36569; 73630; 80048; 80053; 80202; 82947; 82962; 83735; 85025; 85652; 86140; 87070; 87075; 87077; 87184; 87186; 87205; 87640; 94640; 97802; 99251; 99284; J7050; A4216; G0463; J2405

== ENCOUNTER 2021-11-26 13:13 | Outpatient (RCR) | payer BC, SELFPAY ==
[2021-11-19 11:31] LABS: Hematocrit 35.2 % (40-54); Hemoglobin 11.6 g/dL (13.0-16.5); Mean Corpuscular Hgb 26.3 pg (27.0-32.0); Mean Corpuscular Volume 79.8 fL (80-94); Mean Platelet Vol. 9.7 fl (6.2-12.0); Platelet Count 191 K/mm3 (150-450); RBC Distribution Width CV 14.1 % (11.6-14.6); RBC Distribution Width SD 40.8 fl (35.1-43.9); Red Blood Count 4.41 M/mm3 (4.6-6.2); White Blood Count 8.9 K/mm3 (4.4-11.0)
[2021-11-19 11:43] LABS: Anion Gap 5 (5-15); BUN 17 mg/dL (7-18); BUN/Creat Ratio 12.1 RATIO (10-20); Calcium,Total 9.4 mg/dL (8.5-10.1); Chloride 105 mmol/L (98-107); EST Glomerular Filtration Rate 54 mL/min (>60); Est Glom Filt Rate - Afr Amer 66 mL/min (>60); Glucose 217 mg/dL (74-106); Potassium 3.9 mmol/L (3.5-5.1); Sodium Level 136 mmol/L (136-145)
[2021-11-19 11:56] LABS: Erythrocyte Sedimentation Rate 41 mm/hr (0-20)
[2021-11-26 13:46] LABS: Anion Gap 7 (5-15); BUN 12 mg/dL (7-18); BUN/Creat Ratio 10.3 RATIO (10-20); Calcium,Total 9.7 mg/dL (8.5-10.1); Chloride 106 mmol/L (98-107); Creatinine, Serum 1.16 mg/dL (0.70-1.30); EST Glomerular Filtration Rate 68 mL/min (>60); Est Glom Filt Rate - Afr Amer 82 mL/min (>60); Glucose 132 mg/dL (74-106); Potassium 4.1 mmol/L (3.5-5.1); Sodium Level 138 mmol/L (136-145)
[2021-11-26 14:05] LABS: Erythrocyte Sedimentation Rate 44 mm/hr (0-20)
[2021-11-26 14:07] LABS: Hematocrit 36.4 % (40-54); Mean Corpuscular Hgb 26.1 pg (27.0-32.0); Mean Corpuscular Volume 79.1 fL (80-94); Mean Platelet Vol. 9.7 fl (6.2-12.0); Platelet Count 212 K/mm3 (150-450); RBC Distribution Width CV 14.4 % (11.6-14.6); RBC Distribution Width SD 41.1 fl (35.1-43.9); White Blood Count 8.5 K/mm3 (4.4-11.0)
[2021-12-03 14:54] LABS: Anion Gap 10 (5-15); BUN 16 mg/dL (7-18); BUN/Creat Ratio 10.4 RATIO (10-20); Calcium,Total 9.8 mg/dL (8.5-10.1); Chloride 102 mmol/L (98-107); Creatinine, Serum 1.54 mg/dL (0.70-1.30); EST Glomerular Filtration Rate 49 mL/min (>60); Est Glom Filt Rate - Afr Amer 59 mL/min (>60); Glucose 298 mg/dL (74-106); Potassium 4.2 mmol/L (3.5-5.1); Sodium Level 136 mmol/L (136-145)
[2021-12-03 14:58] LABS: Erythrocyte Sedimentation Rate 21 mm/hr (0-20)
[2021-12-03 14:59] LABS: Hematocrit 36.6 % (40-54); Hemoglobin 11.8 g/dL (13.0-16.5); Mean Corp Hgb Conc 32.2 g/dL (32-36); Mean Corpuscular Hgb 25.8 pg (27.0-32.0); Mean Corpuscular Volume 79.9 fL (80-94); Mean Platelet Vol. 10.2 fl (6.2-12.0); Platelet Count 210 K/mm3 (150-450); RBC Distribution Width CV 14.7 % (11.6-14.6); RBC Distribution Width SD 42.5 fl (35.1-43.9); Red Blood Count 4.58 M/mm3 (4.6-6.2); White Blood Count 8.8 K/mm3 (4.4-11.0)
== END 2021-12-08 23:59 ==
LOC: HHLAB 13:13
PROVIDERS: PCP Family Medicine; Visit Provider Podiatrist
DX: Z79.899 Other long term (current) drug therapy (principal)
CPT/HCPCS: 80048; 85027; 85652

== ENCOUNTER 2021-11-27 07:53 | Day surgery (SDC) | payer BC, SELFPAY ==
[2021-11-27 07:33] VITALS: BMI 29.0
--- NOTE | 2021-11-27 10:31 | HP.PCM_ITS ---
HPI - General HPI Narrative ROSETTA STEWART, is a 61 M who presents for his PAD. He has had a toe amp that slow healing. Discussed to do angiogram to better further evaluate his tibial disease if we can prove some perfusion into the foot prior to further revision of the toe amp. FOR[facility]LY [facility] Medical History Anxiety Asthma Asthma CAD (coronary artery disease) Chest pain Coronary artery disease Delayed wound healing Depression Diabetes mellitus DM2 (diabetes mellitus, type 2) Hallux limitus of right foot Hallux limitus of right foot Heart disease HTN (hypertension) Myocardial infarct Non-smoker Osteomyelitis PAD (peripheral artery disease) Toe infection Type 2 diabetes mellitus with diabetic polyneuropathy Home Medications albuterol sulfate 1 - 2 puff INHALATION Q4H PRN PRN 09/17/20 [History Last Taken Unknown] aspirin 81 mg PO DAILY@0800 09/17/20 [History Last Taken 11/27/21] carvedilol 6.25 mg PO BID 09/17/20 [History Last Taken 11/01/21] clopidogrel 75 mg PO DAILY 09/17/20 [History Last Taken 09/24/21 08:00] fluticasone propionate 2 puff IH DAILY 09/17/20 [History Last Taken 11/01/21] glimepiride 8 mg PO DAILY 09/17/20 [History Last Taken 11/01/21] metformin 1,000 mg PO BID 09/17/20 [History Last Taken 11/01/21] sertraline 100 mg PO DAILY 09/17/20 [History Last Taken 11/01/21] Januvia 100 mg PO DAILY 05/06/21 [History Last Taken 11/01/21] Nexletol 180 mg PO DAILY 07/10/21 [History Last Taken 09/24/21 08:00] amlodipine 10 mg PO DAILY 07/10/21 [History Last Taken 11/27/21] cilostazol 100 mg PO BID 07/10/21 [History Last Taken 09/24/21 08:00] ezetimibe 10 mg PO DAILY 07/10/21 [History Last Taken 09/24/21 08:00] piperacillin-tazobactam 3.375 g IV Q8H #114 ea 11/05/21 [Rx Last Taken Unknown] sodium hypochlorite [HySept] 1 applic TOPICAL DAILY #473 ml 11/06/21 [Rx Last Taken Unknown] Allergy/AdvReac Type Severity Reaction Status Date / Time No Known Allergies Allergy Verified 11/01/21 11:55 Family History Mother Diabetes Hypertension Father Diabetes Hypertension Surgical History History of coronary artery stent placement S/P peripheral artery angioplasty with stent placement Status post right foot surgery Social History household members: none Smoking Status: Never smoker alcohol intake: never substance use type: does not use ROS ROS Narrative All negative except for the HPI Vital Signs Vital Signs Vital Signs: Weight Weight: 191 lb Body Mass Index (BMI) 29.0 Physical Exam Narrative Awake alert oriented No apparent distress Afebrile vital signs stable HEENT: Normocephalic atraumatic Pupils equal reactive neck somewhat mucous membrane Neck supple Heart regular Lungs clear Chest nontender Abdomen soft next extremities palpable radial pulses Dressing intact right lower extremity Palpable femoral pulses Moves all extremities well x4 Assessment & Plan Assessment/Plan (1) PAD (peripheral artery disease): PLAN: 1. PAD. Plan for right leg angiogram today.
--- NOTE | 2021-11-27 11:28 | PCM.OP.BLANK ---
Problems Associated Problem List Diagnoses (1) PAD (peripheral artery disease): Operative Report Date of Procedure: 11/27/21 Surgeon: Dr. Adrien Wells Pre-op diagnosis: PAD with nonhealing wound Postop diagnosis: The same Procedure: Ultrasound-guided access retrograde left common femoral artery. 2. Right lower extremity angiogram with catheter placed into the third order peroneal and anterior tibial artery. 3. Balloon angioplasty of the anterior tibial artery into the dorsalis pedis with a 2 mm x 8 cm balloon. 4. Balloon angioplasty of the entire peroneal artery with a 2 mm x 210 mm balloon. 5. Closure with Mynx. Operation: Patient was brought to the operating room. Underwent appropriate timeout consent. Was prepped and draped in a sterile fashion. We did ultrasound-guided access retrograde in the left common femoral artery. Put a 5 Montenegrin sheath up and gave 5000 units of heparin. We got up and over the bifurcation. And then did an angiogram from the right iliac artery. This showed the common femoral artery, the profunda, and the femoral artery are widely patent. But the wire and catheter down the femoral artery and image from there. Showed the popliteal arteries all the way patent into the anterior tibial and tibial peroneal trunk. We then imaged below the knee. Posterior tibial artery was occluded throughout. Peroneal artery had some moderate to severe stenosis in segments. The anterior tibial artery had severe stenosis into the dorsalis pedis. Brought in a long 5 Montenegrin sheath. Using Glidewire and catheter got first on the peroneal and switched to a 0.014 wire. We ballooned through the entire peroneal artery with a 2 x 210 mm balloon. This was for over 3 minutes. Completion was much improved through here. We then put a wire and catheter down the anterior tibial artery. We switched to a new 0.014 wire and got this through the distal anterior tibial into the dorsalis pedis. We then ballooned this with a 2 x 80 mm balloon into the dorsalis pedis. This was for over 3 minutes as well. Completion was also much improved here with now better flow through the anterior tibial and peroneal feeling better flow into the foot. He has maxed at perfusion. We then put a Glidewire back and removed sheath put a shorter sheath deployed a minx with good hemostasis. Blood pressure with good hemostasis. Brought to recovery stable condition. Sedation: This 61-year-old gentleman underwent moderate sedation given by Dr. Adrien Wells. He was monitored EKG blood pressure and pulse ox for over the 30 minutes of the procedure. See EMR for the complete record.
== END 2021-11-27 16:00 | disposition home or self-care (01) ==
LOC: CLSP 07:54
PROVIDERS: PCP Family Medicine; Referring Provider Surgery Vascular Surgery; Visit Provider Surgery Vascular Surgery
DX: E11.51 Type 2 diabetes mellitus with diabetic peripheral angiopathy without gangrene (principal); E11.42 Type 2 diabetes mellitus with diabetic polyneuropathy; I25.10 Atherosclerotic heart disease of native coronary artery without angina pectoris; I10 Essential (primary) hypertension; I25.2 Old myocardial infarction; Z95.5 Presence of coronary angioplasty implant and graft; Z79.02 Long term (current) use of antithrombotics/antiplatelets; Z79.82 Long term (current) use of aspirin; Z79.84 Long term (current) use of oral hypoglycemic drugs; Z79.899 Other long term (current) drug therapy
CPT/HCPCS: 36245; 37228; 37232; 75710; 76937; 93005; 99152; 99153; C1760; Q9967; C1725; C1769; C1887; C1894

== ENCOUNTER 2021-12-05 09:15 | Outpatient (RCR) | payer BC, SELFPAY ==
[2021-11-09 00:06] VITALS: BMI 28.8
[2021-11-14 08:19] VITALS: BP 144/69; PULSE 85; RESP 16; TEMP 36.2; BMI 28.8
--- NOTE | 2021-11-14 11:47 | PN.PCM_ITS ---
History of Present Illness Date of Service: 11/14/21 Chief Complaint: right foot ulcer at delayed healing hallux amputation site History of Wound: This 61-year-old diabetic male was seen in clinic today. He underwent amputation of the right hallux at the first metatarsophalangeal joint on 09/25/[address] Gertrudis DPM. He was being followed in office postoperatively and he was applying a wound VAC which was being changed every 2 to 3 days. He developed a cellulitis infection and was recently hospitalized for iv antibiotics. He now continues on iv antibiotics in the outpatient setting. He denies any nausea, vomiting, fever, chills, or other constitutional symptoms. Patient has a history of anxiety and depression secondary to dealing with his chronic hallux ulceration for the last year. He is scheduled to follow-up with Dr. Wells later this morning and is tentatively planning on having an updated angio with intervention performed very soon. Progress of Wound: Stable Objective Data Objective Data Vital Signs: Vital Signs Temp Pulse Resp BP 97.2 F L 85 16 144/69 H 11/14/21 08:19 11/14/21 08:19 11/14/21 08:19 11/14/21 08:19 Oxygen Delivery Method Room Air Weight: 86.183 kg Body Mass Index (BMI) 28.8 Physical Exam Const alert, oriented x3 and no apparent distress General Appearance: cooperative and comfortable HEENT normocephalic Lymph Lymphatic: no lymphedema noted Extremity Peripheral Pulses: Negative for posterior tibial pulses present or dorsalis pedis pulses present Skin Wound Narrative: First metatarsophalangeal joint stump ulceration site is open plantarly and dorsally extending proximally to the neck of the first metatarsal bone with exposed bone of the first metatarsal head which is aguilar in appearance and dusky. The head of the first metatarsal bone is soft to palpation. Surrounding tissue demonstrates mixed fibrogranular tissue with nonviable fibrotic tissue. Wound demonstrates no purulent drainage or malodor or crepitus or palpable fluctuance. Wound margins demonstrate minimal eschar. resolved adjacent erythema to plantar margin Neuro oriented x3 and moves all extremities Debridement Note Debridement Note Wound debrided: right foot Wound Grade/Stage: 3 Type of Debridement: Excisional debridement Anesthesia Used: 4% Lidocaine Solution Depth: in the subcutaneous layer Percentage of wound debrided: 100 Instrument Used: #15 blade Tissue Removed: fibrous, devitalized subcutaneous, biofilm, slough Severity: Fat Layer Exposed Amount of bleeding with debridement: Mild Bleeding Controlled with: Pressure Patient tolerated procedure: Patient tolerated procedure well Post-Debridement Measurements and Additional Note: Post-Debridement Measurements/Treatment - Nurse 1 - General Ulcer Assessment Start: 11/14/21 08:19 Freq: Status: Active Protocol: REHAN Activity Type Activity Date Activity User E-Sign Co-Sign Detail Recorded Client Recorded Date Recorded By Document 11/14/21 08:19 [facility] [id number] 11/14/21 08:26 [facility] 11/14/21 08:19 WC - Today's Visit Information Type of service Follow-up Visit (Physician/CHARTER COORDINATOR ) Arrival Mode Ambulatory, Crutches Transfer Assistance None Patient Identification Verified (Name & Yes ) Patient Requires Transmission-Based No Precautions Height and Weight Body Mass Index (BMI) 28.8 BMI Classification Overweight Vital Signs Temperature (97.8 F-99.1 F) 97.2 F L Temperature Source Temporal Pulse Rate (60-100) 85 Pulse Location Monitor Respiratory Rate (12-18) 16 Respiratory rate source Observation Oxygen Delivery Method Room Air Blood Pressure (90/60-120/80) 144/69 H Blood Pressure Mean (mm Hg) 94 Source Monitor Position Sitting Blood Pressure Location Left Arm History Since Last Visit- (Skip if this is Patient's initial visit) Have you changed medications since your No last visit? Any new allergies or adverse reactions No Had a fall/change in ADL's that may No increase risk of falls Signs or symptoms of abuse and/or No neglect since last visit Have you been in the hospital since your No last visit? Has dressing in place as prescribed Yes Has compression in place as prescribed No Has offloadiing in place as prescribed Yes Experienced any changes in pain level or No management Left Footwear Surgical Shoe with pressure relief insole Right Footwear Regular Shoe Pain Scale: 0-10 Numeric Is Patient Pain Free? Yes [facility] Nurse 1 - General Ulcer Measurement Start: 11/14/21 08:19 Freq: Status: Active Protocol: Activity Type Activity Date Activity User E-Sign Co-Sign Detail Recorded Client Recorded Date Recorded By Document 11/14/21 08:19 [facility] [id number] 11/14/21 08:26 [facility] 11/14/21 08:19 Wound Center Nurse 1 #4- R FOOT HALLUX AMP SITE -Combined with other wound No -Current Size (cm) - Length 6.5 -Current Size (cm) - Width 3 -Current Size (cm) - Depth 3.3 -Total Square Cm 19.5 -Date of Last Picture (Recall this 11/14/21 field) -Photo Taken Yes -Epithelialization None Present -Tunneling No -Undermining/Tunneling No -Circular Undermining No -Exudate Amt Large -Exudate Type Serosanguineous -Wound Margin Distinct, Outline Attached -Granulation Amt Small (1-33%) -Granulation Quality Red -Slough/Fibrin Yes -Necrosis Amt Large (67-100%) -Necrotic Tissue Type Adherent Slough -Structure Exposed Bone -Texture (Ashlyn-wound Skin Appearance) Assessed -Moisture (Ashlyn-wound Skin Appearance) Assessed -Color (Ashlyn-wound Skin Appearance) Assessed, Erythema -Temperature (Ashlyn-wound Skin No Abnormality Appearance) (Pt Warm) -Tenderness on Palpation (Ashlyn-wound No Skin Appearance) -Ulcer Cleansing Rinsed/ Irrigated with Saline -Foul Odor after Cleansing No -Anesthetic Used 5% Lidocaine Gel WC - Nurse 2 - General Ulcer CM Notes Start: 11/14/21 08:19 Freq: Status: Active Protocol: Activity Type Activity Date Activity User E-Sign Co-Sign Detail Recorded Client Recorded Date Recorded By Document 11/14/21 08:31 Desktop 11/14/21 08:34 11/14/21 08:31 Wound Center Nurse 2 -Time 08:32 -Correct Patient Yes -Correct Side, Site, Position Yes -Correct Procedure Yes -Procedure Performed Yes -Type of Procedure Debridement -Clinical Debridement Subcutaneous -Tissue Removed Subcutaneous -Post Debridement (cm) - Length 6.5 -Post Debridement (cm) - Width 3.1 -Post Debridement (cm) - Depth 3.3 -Total Square (Post) (cm) 20.15 -Area of Debridement (cm) - Length 6.5 -Area of Debridement (cm) - Width 3.1 -Total Square (Area) (cm) 20.15 -Tunneling No -Undermining/Tunneling No -Circular Undermining No -Wound/Ulcer Outcome Not Healed -Ulcer Cleansing Rinsed/ Irrigated with Saline -Foul Odor after Cleansing No -Bioengineered Tissue No -Bleeding Controlled with Pressure -Treatment Response Procedure Tolerated Well -Offloading Yes -Type of Offloading Surgical Shoe -Assistive Device(s) Crutches -Debridement - Subq, 1st 20sq cm Yes -Debridement, SubQ, ea addt'l 20sq cm 1 or part thereof Pain Scale: 0-10 Numeric Is Patient Pain Free? Yes - Nurse 3 - General Ulcer D/C NN Start: 11/14/21 08:19 Freq: Status: Active Protocol: Activity Type Activity Date Activity User E-Sign Co-Sign Detail Recorded Client Recorded Date Recorded By Document 11/14/21 08:43 [facility] [id number] 11/14/21 08:43 [facility] 11/14/21 08:43 Wound Care Nurse 3 #4- R FOOT HALLUX AMP SITE -Ulcer Cleansing Rinsed/ Irrigated with Saline -Foul Odor after Cleansing No -Primary Dressing Applied Other -Other Dressing MOIST TO DRY -Primary Dressing Covered/Secured with Dry Gauze & Roll Gauze, Secured with Tape,Other -Other Covering ABD Treatment Response Procedure Tolerated Well Pain Scale: 0-10 Numeric Is Patient Pain Free? Yes - Visit Discharge Discharge Condition Stable Ambulatory Status Ambulatory, Crutches Transportation Private Auto Facility Type Home Health Assessment/Plan Assessment/Plan (1) Ulcer of right foot with necrosis of bone: CODE(S): L97.514 - Non-pressure chronic ulcer of other part of right foot with necrosis of bone (2) Type 2 diabetes mellitus with diabetic polyneuropathy: CODE(S): E11.42 - Type 2 diabetes mellitus with diabetic polyneuropathy (3) Hallux limitus of right foot: CODE(S): M20.5X1 - Other deformities of toe(s) (acquired), right foot (4) Osteomyelitis: CODE(S): M86.9 - Osteomyelitis, unspecified QUALIFIERS: Laterality: right Osteomyelitis location: foot Osteomyelitis type: other acute Qualified Code(s): M86.171 - Other acute osteomyelitis, right ankle and foot (5) Other specified peripheral vascular diseases: CODE(S): I73.89 - Other specified peripheral vascular diseases (6) Delayed wound healing: CODE(S): T14.8XXD - Other injury of unspecified body region, subsequent encounter (7) 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 He was reassured there is no erythema or purulence to the foot however has continued exposed bone which is consistent with osteomyelitis. Debridement was performed as noted in the clinical panel. Dressing: To change dressings daily with dakin wet to dry. Wash: Soap and water Offload: Heel weightbearing with surgical shoe. To use assistive device. I recommend fully offloading the entire foot transitioning to nonweightbearing status with a walker or knee roller. I added a Plastizote liner and a foam offloading pad to take further pressure off of this ulcer site previously. Vascular: He had prior vascular surgery intervention at [facility] in [place] and also locally with Dr. Wells. He has a follow-up appointment later this morning and is tentatively planned to have an updated angio with intervention. Host factors: He has uncontrolled diabetes with a self-reported A1c of over 9%. He understands this in combination with his known vascular disease make healing difficult. He is at risk for amputation and he is made this previously clear that he will not proceed forward with this. I recommend nutritional education to optimize healing. I advised him to avoid skipping meals. Advised him to eat a whole food balanced diet that not only focuses on adequate (not excessive) protein but also nutrient dense food intake. 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 Resources were provided as reviewed them. This was discussed again today. Infection: Prior h/o cipro for PsA R foot osteo. recently worsened and updated cx now resistance to cipro. PICC placed, 6 weeks iv zosyn, stop date 12/13/21. ID recs appreciated and outpatient follow up planned. To return to clinic in 2-3 weeks. I answered all his questions. Note: [employer] speech recognition leasing representative software was used to create portions of this document. Sound-alike and misspelled words, as well as other leasing representative errors may be contained in the documentation.
[2021-11-23 13:09] VITALS: BP 140/69; PULSE 84; TEMP 36.4; BMI 28.8
--- NOTE | 2021-11-23 16:03 | PN.PCM_ITS ---
History of Present Illness Date of Service: 11/23/21 Chief Complaint: right foot ulcer at delayed healing hallux amputation site History of Wound: This 61-year-old diabetic male was seen in clinic today. He underwent amputation of the right hallux at the first metatarsophalangeal joint on 09/25/[address] Gertrudis DPM. He was being followed in office postoperatively and he was applying a wound VAC which was being changed every 2 to 3 days. His local cellulitis has resolved in which he was recently hospitalized for this condition. He now continues on iv antibiotics in the outpatient setting. He denies any nausea, vomiting, fever, chills, or other constitutional symptoms. Patient has a history of anxiety and depression secondary to dealing with his chronic hallux ulceration for the last year. He is scheduled to follow-up with Dr. Wells for vascular surgery intervention this upcoming Friday on 11-27-2021. Progress of Wound: Stable Objective Data Objective Data Vital Signs: Vital Signs Temp Pulse Resp BP 97.5 F L 84 16 140/69 H 11/23/21 13:09 11/23/21 13:09 11/14/21 08:19 11/23/21 13:09 Oxygen Delivery Method Room Air Weight: 86.183 kg Body Mass Index (BMI) 28.8 Physical Exam Const alert, oriented x3 and no apparent distress General Appearance: cooperative and comfortable HEENT normocephalic Lymph Lymphatic: no lymphedema noted Extremity Peripheral Pulses: Negative for posterior tibial pulses present or dorsalis pedis pulses present Skin Wound Narrative: First metatarsophalangeal joint stump ulceration site is open plantarly and dorsally extending proximally to the neck of the first metatarsal bone with exposed bone of the first metatarsal head which is aguilar in appearance and dusky. The head of the first metatarsal bone is soft to palpation. Surrounding tissue demonstrates mixed fibrogranular tissue with nonviable fibrotic tissue. Wound demonstrates no purulent drainage or malodor or crepitus or palpable fluctuance. Wound margins demonstrate no eschar, maceration or local inflammation/infection/purulence. Neuro oriented x3 and moves all extremities Debridement Note Debridement Note Post-Debridement Measurements and Additional Note: Post-Debridement Measurements/Treatment WC - Nurse 1 - General Ulcer Assessment Start: 11/14/21 08:19 Freq: Status: Active Protocol: WC.LOWEXT Activity Type Activity Date Activity User E-Sign Co-Sign Detail Recorded Client Recorded Date Recorded By Document 11/14/21 08:19 [facility] [id number] 11/14/21 08:26 [facility] Document 11/23/21 13:09 [id number] 11/23/21 13:15 KR 11/14/21 11/23/21 08:19 13:09 - Today's Visit Information Type of service Follow-up Visit Follow-up Visit (Physician/[facility] (Physician/[facility] ) ) Arrival Mode Ambulatory, Ambulatory, Crutches Crutches Transfer Assistance None Patient Identification Verified (Name & Yes Yes ) Patient Requires Transmission-Based No Precautions Height and Weight Body Mass Index (BMI) 28.8 28.8 BMI Classification Overweight Overweight Vital Signs Temperature (97.8 F-99.1 F) 97.2 F L 97.5 F L Temperature Source Temporal Temporal Pulse Rate (60-100) 85 84 Pulse Location Monitor Monitor Respiratory Rate (12-18) 16 Respiratory rate source Observation Oxygen Delivery Method Room Air Blood Pressure (90/60-120/80) 144/69 H 140/69 H Blood Pressure Mean (mm Hg) 94 92 Source Monitor Monitor Position Sitting Supine Blood Pressure Location Left Arm Left Arm History Since Last Visit- (Skip if this is Patient's initial visit) Have you changed medications since your No No last visit? Any new allergies or adverse reactions No No Had a fall/change in ADL's that may No No increase risk of falls Signs or symptoms of abuse and/or No No neglect since last visit Have you been in the hospital since your No No last visit? Has dressing in place as prescribed Yes Yes Has compression in place as prescribed No Yes Has offloadiing in place as prescribed Yes N/A Experienced any changes in pain level or No No management Left Footwear Surgical Shoe Surgical Shoe with pressure with pressure relief insole relief insole Right Footwear Regular Shoe Regular Shoe Pain Scale: 0-10 Numeric Is Patient Pain Free? Yes Yes - Nurse 1 - General Ulcer Measurement Start: 11/14/21 08:19 Freq: Status: Active Protocol: Activity Type Activity Date Activity User E-Sign Co-Sign Detail Recorded Client Recorded Date Recorded By Document 11/14/21 08:19 [facility] [id number] 11/14/21 08:26 [facility] Document 11/23/21 13:09 KR [id number] 11/23/21 13:15 KR 11/14/21 11/23/21 08:19 13:09 Wound Center Nurse 1 #4- R FOOT HALLUX AMP SITE -Combined with other wound No -Current Size (cm) - Length 6.5 5.6 -Current Size (cm) - Width 3 3.2 -Current Size (cm) - Depth 3.3 3.3 -Total Square Cm 19.5 17.92 -Date of Last Picture (Recall this 11/14/21 field) -Photo Taken Yes -Epithelialization None Present -Tunneling No -Undermining/Tunneling No -Circular Undermining No -Exudate Amt Large Large -Exudate Type Serosanguineous Yellow/Green -Wound Margin Distinct, Distinct, Outline Outline Attached Attached -Granulation Amt Small (1-33%) Medium (34-66%) -Granulation Quality Red Red -Slough/Fibrin Yes -Necrosis Amt Large (67-100%) Large (67-100%) -Necrotic Tissue Type Adherent Slough Adherent Slough -Structure Exposed Bone Tendon,Joint, Fat Layer Exposed -Texture (Ashlyn-wound Skin Appearance) Assessed Assessed, Scarring -Moisture (Ashlyn-wound Skin Appearance) Assessed Assessed,Dry/ Scaly -Color (Ashlyn-wound Skin Appearance) Assessed, No Abnormality, Erythema Assessed -Temperature (Ashlyn-wound Skin No Abnormality No Abnormality Appearance) (Pt Warm) (Pt Warm) -Tenderness on Palpation (Ashlyn-wound No No Skin Appearance) -Ulcer Cleansing Rinsed/ Rinsed/ Irrigated with Irrigated with Saline Saline -Foul Odor after Cleansing No No -Anesthetic Used 5% Lidocaine 5% Lidocaine Gel Gel WC - Nurse 2 - General Ulcer CM Notes Start: 11/14/21 08:19 Freq: Status: Active Protocol: Activity Type Activity Date Activity User E-Sign Co-Sign Detail Recorded Client Recorded Date Recorded By Document 11/14/21 08:31 Desktop 11/14/21 08:34 NANETTE 11/14/21 08:31 Wound Center Nurse 2 -Time 08:32 -Correct Patient Yes -Correct Side, Site, Position Yes -Correct Procedure Yes -Procedure Performed Yes -Type of Procedure Debridement -Clinical Debridement Subcutaneous -Tissue Removed Subcutaneous -Post Debridement (cm) - Length 6.5 -Post Debridement (cm) - Width 3.1 -Post Debridement (cm) - Depth 3.3 -Total Square (Post) (cm) 20.15 -Area of Debridement (cm) - Length 6.5 -Area of Debridement (cm) - Width 3.1 -Total Square (Area) (cm) 20.15 -Tunneling No -Undermining/Tunneling No -Circular Undermining No -Wound/Ulcer Outcome Not Healed -Ulcer Cleansing Rinsed/ Irrigated with Saline -Foul Odor after Cleansing No -Bioengineered Tissue No -Bleeding Controlled with Pressure -Treatment Response Procedure Tolerated Well -Offloading Yes -Type of Offloading Surgical Shoe -Assistive Device(s) Crutches -Debridement - Subq, 1st 20sq cm Yes -Debridement, SubQ, ea addt'l 20sq cm 1 or part thereof Pain Scale: 0-10 Numeric Is Patient Pain Free? Yes - Nurse 3 - General Ulcer D/C NN Start: 11/14/21 08:19 Freq: Status: Active Protocol: Activity Type Activity Date Activity User E-Sign Co-Sign Detail Recorded Client Recorded Date Recorded By Document 11/14/21 08:43 [facility] [id number] 11/14/21 08:43 [facility] Document 11/23/21 13:55 [id number] 11/23/21 13:55 11/14/21 11/23/21 08:43 13:55 Wound Care Nurse 3 #4- R FOOT HALLUX AMP SITE -Ulcer Cleansing Rinsed/ Rinsed/ Irrigated with Irrigated with Saline Saline -Foul Odor after Cleansing No -Primary Dressing Applied Other -Other Dressing MOIST TO DRY wet to dry -Primary Dressing Covered/Secured with Dry Gauze & Dry Gauze,Dry Roll Gauze, Gauze & Roll Secured with Gauze,Secured Tape,Other with Tape -Other Covering ABD Treatment Response Procedure Tolerated Well Pain Scale: 0-10 Numeric Is Patient Pain Free? Yes Yes - Visit Discharge Discharge Condition Stable Stable Ambulatory Status Ambulatory, Ambulatory, Crutches Crutches Transportation Private Auto Private Auto Facility Type Home Health Assessment/Plan Assessment/Plan (1) Ulcer of right foot with necrosis of bone: CODE(S): L97.514 - Non-pressure chronic ulcer of other part of right foot with necrosis of bone (2) Type 2 diabetes mellitus with diabetic polyneuropathy: CODE(S): E11.42 - Type 2 diabetes mellitus with diabetic polyneuropathy (3) Hallux limitus of right foot: CODE(S): M20.5X1 - Other deformities of toe(s) (acquired), right foot (4) Osteomyelitis: CODE(S): M86.9 - Osteomyelitis, unspecified QUALIFIERS: Osteomyelitis type: other acute Osteomyelitis location: foot Laterality: right Qualified Code(s): M86.171 - Other acute osteomyelitis, right ankle and foot (5) Other specified peripheral vascular diseases: CODE(S): I73.89 - Other specified peripheral vascular diseases (6) Delayed wound healing: CODE(S): T14.8XXD - Other injury of unspecified body region, subsequent encounter (7) 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 He was reassured there is no erythema or purulence to the foot however has continued exposed bone which is consistent with osteomyelitis. Debridement was not performed today. Dressing: To change dressings daily with dakin wet to dry. Wash: Soap and water Offload: Heel weightbearing with surgical shoe. To use assistive device. I recommend fully offloading the entire foot transitioning to nonweightbearing status with a walker or knee roller. I added a Plastizote liner and a foam offloading pad to take further pressure off of this ulcer site previously. Vascular: He had prior vascular surgery intervention at [facility] in [place] and also locally with Dr. Wells. He has a follow-up appointment for vascular angio intervention this upcoming 11-28-2019. To follow-up as scheduled and advised. This is imperative for wound healing opportunity. Host factors: He has uncontrolled diabetes with a self-reported A1c of over 9%. He understands this in combination with his known vascular disease make healing difficult. He is at risk for amputation and he is made this previously clear that he will not proceed forward with this. I recommend nutritional education to optimize healing. I advised him to avoid skipping meals. Advised him to eat a whole food balanced diet that not only focuses on adequate (not excessive) protein but also nutrient dense food intake. He defers director field services referral. Resources were provided as reviewed them. This was discussed again today. Infection: Prior h/o cipro for PsA R foot osteo. recently worsened and updated cx now resistance to cipro. PICC placed, 6 weeks iv zosyn, stop date 12/13/21. ID recs appreciated and outpatient follow up planned. He is doing well with this so far. To return to clinic in 2-3 weeks. I answered all his questions. Note: [facility] speech recognition bonding equipment operator software was used to create portions of this document. Sound-alike and misspelled words, as well as other bonding equipment operator errors may be contained in the documentation. The medical decision making level is limited based on data including the review of prior external notes, review of a prior test, or ordering a test. The problems addressed require a low medical decision making level which includes two or more minor problems, a stable chronic illness, or an acute uncomplicated illness or injury.
[2021-11-28 09:24] VITALS: RESP 16; TEMP 35.8; BMI 28.8
--- NOTE | 2021-11-28 10:51 | PN.PCM_ITS ---
History of Present Illness Date of Service: 11/28/21 Chief Complaint: right foot ulcer at delayed healing hallux amputation site History of Wound: This 61-year-old diabetic male was seen in clinic today. He underwent amputation of the right hallux at the first metatarsophalangeal joint on 09/25/[address] Gertrudis DPM. He was being followed in office postoperatively and he was applying a wound VAC which was being changed every 2 to 3 days. His local cellulitis has resolved in which he was recently hospitalized for this condition. He now continues on iv antibiotics in the outpatient setting. He denies any nausea, vomiting, fever, chills, or other constitutional symptoms. Patient has a history of anxiety and depression secondary to dealing with his chronic hallux ulceration for the last year. He has completed a procedure with Dr. Wells for vascular surgery intervention on 11-27-2021; angioplasty of anterior tibial and peroneal arteries with improved foot flow. Progress of Wound: Stable Objective Data Objective Data Vital Signs: Vital Signs Temp Pulse Resp BP 96.5 F L 84 16 140/69 H 11/28/21 09:24 11/23/21 13:09 11/28/21 09:24 11/23/21 13:09 Oxygen Delivery Method Room Air Weight: 86.183 kg Body Mass Index (BMI) 28.8 Physical Exam Const alert, oriented x3 and no apparent distress General Appearance: cooperative and comfortable HEENT normocephalic Lymph Lymphatic: no lymphedema noted Extremity Peripheral Pulses: Negative for posterior tibial pulses present or dorsalis pedis pulses present Skin Wound Narrative: First metatarsophalangeal joint stump ulceration site is open plantarly and dorsally extending proximally to the neck of the first metatarsal bone with exposed bone of the first metatarsal head which is aguilar in appearance and dusky. The head of the first metatarsal bone is soft to palpation. Surrounding tissue demonstrates mixed fibrogranular tissue with nonviable fibrotic tissue. Wound demonstrates no purulent drainage or malodor or crepitus or palpable fluctuance. Wound margins demonstrate no eschar, maceration or local inflammation/infection/purulence. Improved controlled hematogenous drainage noted with ulcer debridement today Neuro oriented x3 and moves all extremities Debridement Note Debridement Note Wound debrided: Right foot Wound Grade/Stage: 3 Type of Debridement: Excisional debridement Anesthesia Used: 4% Lidocaine Solution Depth: in the subcutaneous layer Percentage of wound debrided: 100 Instrument Used: #15 blade Tissue Removed: fibrous, devitalized subcutaneous, biofilm, slough Severity: Fat Layer Exposed Amount of bleeding with debridement: Mild Bleeding Controlled with: Pressure Patient tolerated procedure: Patient tolerated procedure well Post-Debridement Measurements and Additional Note: Post-Debridement Measurements/Treatment - Nurse 1 - General Ulcer Assessment Start: 11/14/21 08:19 Freq: Status: Active Protocol: REHAN Activity Type Activity Date Activity User E-Sign Co-Sign Detail Recorded Client Recorded Date Recorded By Document 11/14/21 08:19 [facility] [id number] 11/14/21 08:26 BM Document 11/23/21 13:09 KR [id number] 11/23/21 13:15 KR Document 11/28/21 09:24 [facility] [id number] 11/28/21 09:40 [facility] 11/14/21 11/23/21 11/28/21 08:19 13:09 09:24 - Today's Visit Information Type of service Follow-up Visit Follow-up Visit Follow-up Visit (Physician/JUDICIAL ADMINISTRATIVE ASSISTANT (Physician/JUDICIAL ADMINISTRATIVE ASSISTANT (Physician/JUDICIAL ADMINISTRATIVE ASSISTANT ) ) ) Arrival Mode Ambulatory, Ambulatory, Ambulatory, Crutches Crutches Crutches Transfer Assistance None None Patient Identification Verified (Name & Yes Yes Yes ) Patient Requires Transmission-Based No No Precautions Height and Weight Body Mass Index (BMI) 28.8 28.8 28.8 BMI Classification Overweight Overweight Overweight Vital Signs Temperature (97.8 F-99.1 F) 97.2 F L 97.5 F L 96.5 F L Temperature Source Temporal Temporal Temporal Pulse Rate (60-100) 85 84 Pulse Location Monitor Monitor Respiratory Rate (12-18) 16 16 Respiratory rate source Observation Observation Oxygen Delivery Method Room Air Room Air Blood Pressure (90/60-120/80) 144/69 H 140/69 H Blood Pressure Mean (mm Hg) 94 92 Source Monitor Monitor Position Sitting Supine Blood Pressure Location Left Arm Left Arm History Since Last Visit- (Skip if this is Patient's initial visit) Have you changed medications since your No No No last visit? Any new allergies or adverse reactions No No No Had a fall/change in ADL's that may No No No increase risk of falls Signs or symptoms of abuse and/or No No No neglect since last visit Have you been in the hospital since your No No No last visit? Has dressing in place as prescribed Yes Yes Yes Has compression in place as prescribed No Yes N/A Has offloadiing in place as prescribed Yes N/A Yes Experienced any changes in pain level or No No No management Left Footwear Surgical Shoe Surgical Shoe Surgical Shoe with pressure with pressure with pressure relief insole relief insole relief insole Right Footwear Regular Shoe Regular Shoe Regular Shoe Pain Scale: 0-10 Numeric Is Patient Pain Free? Yes Yes Yes WC - Nurse 1 - General Ulcer Measurement Start: 11/14/21 08:19 Freq: Status: Active Protocol: Activity Type Activity Date Activity User E-Sign Co-Sign Detail Recorded Client Recorded Date Recorded By Document 11/14/21 08:19 [facility] [id number] 11/14/21 08:26 BM Document 11/23/21 13:09 KR [id number] 11/23/21 13:15 KR Document 11/28/21 09:24 [facility] [id number] 11/28/21 09:40 BMF 11/14/21 11/23/21 11/28/21 08:19 13:09 09:24 Wound Center Nurse 1 #4- R FOOT HALLUX AMP SITE -Combined with other wound No No -Current Size (cm) - Length 6.5 5.6 8.8 -Current Size (cm) - Width 3 3.2 2.8 -Current Size (cm) - Depth 3.3 3.3 1.2 -Total Square Cm 19.5 17.92 24.64 -Date of Last Picture (Recall this 11/14/21 11/28/21 field) -Photo Taken Yes Yes -Epithelialization None Present None Present -Tunneling No No -Undermining/Tunneling No No -Circular Undermining No No -Exudate Amt Large Large Large -Exudate Type Serosanguineous Yellow/Green Serosanguineous -Wound Margin Distinct, Distinct, Distinct, Outline Outline Outline Attached Attached Attached -Granulation Amt Small (1-33%) Medium (34-66%) Medium (34-66%) -Granulation Quality Red Red Red -Slough/Fibrin Yes Yes -Necrosis Amt Large (67-100%) Large (67-100%) Medium (34-66%) -Necrotic Tissue Type Adherent Slough Adherent Slough Adherent Slough -Structure Exposed Bone Tendon,Joint, Bone Fat Layer Exposed -Texture (Ashlyn-wound Skin Appearance) Assessed Assessed, Assessed, Scarring Localized Edema ,Scarring -Moisture (Ashlyn-wound Skin Appearance) Assessed Assessed,Dry/ Assessed Scaly -Color (Ashlyn-wound Skin Appearance) Assessed, No Abnormality, Assessed, Erythema Assessed Erythema -Temperature (Ashlyn-wound Skin No Abnormality No Abnormality No Abnormality Appearance) (Pt Warm) (Pt Warm) (Pt Warm) -Tenderness on Palpation (Ashlyn-wound No No Yes Skin Appearance) -Ulcer Cleansing Rinsed/ Rinsed/ Soap and Water Irrigated with Irrigated with Saline Saline -Foul Odor after Cleansing No No No -Anesthetic Used 5% Lidocaine 5% Lidocaine 4% Lidocaine Gel Gel Solution WC - Nurse 2 - General Ulcer CM Notes Start: 11/14/21 08:19 Freq: Status: Active Protocol: Activity Type Activity Date Activity User E-Sign Co-Sign Detail Recorded Client Recorded Date Recorded By Document 11/14/21 08:31 Desktop 11/14/21 08:34 Document 11/28/21 09:50 [id number] 11/28/21 09:55 11/14/21 11/28/21 08:31 09:50 Wound Center Nurse 2 #4- R FOOT HALLUX AMP SITE -Time 08:32 09:50 -Correct Patient Yes Yes -Correct Side, Site, Position Yes Yes -Correct Procedure Yes Yes -Procedure Performed Yes Yes -Type of Procedure Debridement Debridement -Clinical Debridement Subcutaneous Subcutaneous -Tissue Removed Subcutaneous Subcutaneous -Post Debridement (cm) - Length 6.5 8.8 -Post Debridement (cm) - Width 3.1 2.8 -Post Debridement (cm) - Depth 3.3 1.3 -Total Square (Post) (cm) 20.15 24.64 -Area of Debridement (cm) - Length 6.5 8.8 -Area of Debridement (cm) - Width 3.1 2.8 -Total Square (Area) (cm) 20.15 24.64 -Tunneling No No -Undermining/Tunneling No No -Circular Undermining No No -Wound/Ulcer Outcome Not Healed Not Healed -Ulcer Cleansing Rinsed/ Rinsed/ Irrigated with Irrigated with Saline Saline -Foul Odor after Cleansing No -Bioengineered Tissue No No -Bleeding Controlled with Pressure Pressure -Treatment Response Procedure Procedure Tolerated Well Tolerated Well -Offloading Yes Yes -Type of Offloading Surgical Shoe Surgical Shoe -Assistive Device(s) Crutches -Debridement - Subq, 1st 20sq cm Yes Yes -Debridement, SubQ, ea addt'l 20sq cm 1 1 or part thereof Pain Scale: 0-10 Numeric Is Patient Pain Free? Yes Yes - Nurse 3 - General Ulcer D/C NN Start: 11/14/21 08:19 Freq: Status: Active Protocol: Activity Type Activity Date Activity User E-Sign Co-Sign Detail Recorded Client Recorded Date Recorded By Document 11/14/21 08:43 [facility] [id number] 11/14/21 08:43 [facility] Document 11/23/21 13:55 KR [id number] 11/23/21 13:55 11/14/21 11/23/21 08:43 13:55 Wound Care Nurse 3 #4- R FOOT HALLUX AMP SITE -Ulcer Cleansing Rinsed/ Rinsed/ Irrigated with Irrigated with Saline Saline -Foul Odor after Cleansing No -Primary Dressing Applied Other -Other Dressing MOIST TO DRY wet to dry -Primary Dressing Covered/Secured with Dry Gauze & Dry Gauze,Dry Roll Gauze, Gauze & Roll Secured with Gauze,Secured Tape,Other with Tape -Other Covering ABD Treatment Response Procedure Tolerated Well Pain Scale: 0-10 Numeric Is Patient Pain Free? Yes Yes - Visit Discharge Discharge Condition Stable Stable Ambulatory Status Ambulatory, Ambulatory, Crutches Crutches Transportation Private Auto Private Auto Facility Type Home Health Assessment/Plan Assessment/Plan (1) Ulcer of right foot with necrosis of bone: CODE(S): L97.514 - Non-pressure chronic ulcer of other part of right foot with necrosis of bone (2) Type 2 diabetes mellitus with diabetic polyneuropathy: CODE(S): E11.42 - Type 2 diabetes mellitus with diabetic polyneuropathy (3) Hallux limitus of right foot: CODE(S): M20.5X1 - Other deformities of toe(s) (acquired), right foot (4) Osteomyelitis: CODE(S): M86.9 - Osteomyelitis, unspecified QUALIFIERS: Osteomyelitis type: other acute Osteomyelitis location: foot Laterality: right Qualified Code(s): M86.171 - Other acute osteomyelitis, right ankle and foot (5) Other specified peripheral vascular diseases: CODE(S): I73.89 - Other specified peripheral vascular diseases (6) Delayed wound healing: CODE(S): T14.8XXD - Other injury of unspecified body region, subsequent encounter (7) 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 He was reassured there is no erythema or purulence to the foot however has continued exposed bone which is consistent with osteomyelitis. Debridement was performed today as noted in the clinical nursing panel. Dressing: To change dressings daily with dakin wet to dry. Wash: Soap and water Offload: Heel weightbearing with surgical shoe. To use assistive device. I recommend fully offloading the entire foot transitioning to nonweightbearing status with a walker or knee roller. I added a Plastizote liner and a foam offloading pad to take further pressure off of this ulcer site previously. Vascular: He had prior vascular surgery intervention at [facility] in [place] and also locally with Dr. Wells. On 11-27-2021 he had additional vascular surgery procedure performed; angioplasty of anterior tibial and peroneal arteries with improved foot flow. Host factors: He has uncontrolled diabetes with a self-reported A1c of over 9%. He understands this in combination with his known vascular disease make healing difficult. He is at risk for amputation and he is made this previously clear that he will not proceed forward with this. I recommend nutritional education to optimize healing. I advised him to avoid skipping meals. Advised him to eat a whole food balanced diet that not only focuses on adequate (not excessive) protein but also nutrient dense food intake. 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 Resources were provided as reviewed them. This was discussed again today. Infection: Prior h/o cipro for PsA R foot osteo. recently worsened and updated cx now resistance to cipro. PICC placed, 6 weeks iv zosyn, stop date 12/13/21. ID recs appreciated and outpatient follow up planned. He is doing well with this so far. He will tentatively be scheduled for clinic next week however preoperative scheduling process will be initiated. I answered all his questions. Preoperative indications, planned procedure, benefits, risk, anticipated healing time and management were reviewed. The patient understands and elects proceed with surgery at this time. No guarantees were made. The patient understands risk and complications include but are not limited to following: pain, swelling, scarring, need for further surgery, tendon contracture, transfer lesion, arthritis, need for further surgery, delayed or nonhealing, infection, blood clot, allergic reaction, loss of limb, function, or life. The informed surgical limb and consent will need to be signed: right foot first ray resection. I answered all the patient's questions. Note: [employer] speech recognition food assembler software was used to create portions of this document. Sound-alike and misspelled words, as well as other food assembler errors may be contained in the documentation. The medical decision making level is limited based on data including the review of prior external notes, review of a prior test, or ordering a test. 20 minutes was spent on this encounter. This included face to face and non face to face care including preparing for the visit, reviewing the history, performing the exam, counseling and providing education to the patient, family, or caregiver, ordering medications/test/ procedures if indicated as documented, communicating with other healthcare providers, documenting information in the medical record, interpreting / sharing this information when indicated as documented, and care coordination.
[2021-12-05 09:21] VITALS: BP 157/76; PULSE 84; RESP 16; TEMP 36; BMI 28.8
--- NOTE | 2021-12-05 11:47 | PCM.WC.PN ---
History of Present Illness Date of Service: 12/05/21 Chief Complaint: right foot ulcer at delayed healing hallux amputation site History of Wound: This 61-year-old diabetic male was seen in clinic today. He underwent amputation of the right hallux at the first metatarsophalangeal joint on 09/25/[address] Gertrudis DPM. He now continues on iv antibiotics in the outpatient setting. He denies any nausea, vomiting, fever, chills, or other constitutional symptoms. Patient has a history of anxiety and depression secondary to dealing with his chronic hallux ulceration for the last year. He has completed a procedure with Dr. Wells for vascular surgery intervention on 11-27-2021; angioplasty of anterior tibial and peroneal arteries with improved foot flow. He was seen for his clearance with Dr. Johnson yesterday and is ready to proceed with first ray resection/amputation on 12-11-2021 at [facility]. Progress of Wound: Stable Objective Data Objective Data Vital Signs: Vital Signs Temp Pulse Resp BP 96.8 F L 84 16 157/76 H 12/05/21 09:21 12/05/21 09:21 12/05/21 09:21 12/05/21 09:21 Oxygen Delivery Method Room Air Weight: 86.183 kg Body Mass Index (BMI) 28.8 Physical Exam Const alert, oriented x3 and no apparent distress General Appearance: cooperative and comfortable HEENT normocephalic Lymph Lymphatic: no lymphedema noted Extremity Peripheral Pulses: Negative for posterior tibial pulses present or dorsalis pedis pulses present Skin Wound Narrative: First metatarsophalangeal joint stump ulceration site is open plantarly and dorsally extending proximally to the neck of the first metatarsal bone with exposed bone of the first metatarsal head which is aguilar in appearance and dusky. The head of the first metatarsal bone is soft to palpation. Surrounding tissue demonstrates mixed fibrogranular tissue with nonviable fibrotic tissue. Wound demonstrates no purulent drainage or malodor or crepitus or palpable fluctuance. Wound margins demonstrate no eschar, maceration or local inflammation/infection/purulence. Improved controlled hematogenous drainage noted with ulcer debridement today Neuro oriented x3 and moves all extremities Debridement Note Debridement Note Post-Debridement Measurements and Additional Note: Post-Debridement Measurements/Treatment WC - Nurse 1 - General Ulcer Assessment Start: 11/14/21 08:19 Freq: Status: Active Protocol: WC.LOWEXT Activity Type Activity Date Activity User E-Sign Co-Sign Detail Recorded Client Recorded Date Recorded By Document 11/14/21 08:19 [facility] [id number] 11/14/21 08:26 BMF Document 11/23/21 13:09 KR [id number] 11/23/21 13:15 KR Document 11/28/21 09:24 [facility] [id number] 11/28/21 09:40 BMF Document 12/05/21 09:21 [facility] [id number] 12/05/21 09:34 BMF 11/14/21 11/23/21 11/28/21 08:19 13:09 09:24 WC - Today's Visit Information Type of service Follow-up Visit Follow-up Visit Follow-up Visit (Physician/VOCATIONAL REHABILITATION COUNSELOR (Physician/VOCATIONAL REHABILITATION COUNSELOR (Physician/VOCATIONAL REHABILITATION COUNSELOR ) ) ) Arrival Mode Ambulatory, Ambulatory, Ambulatory, Crutches Crutches Crutches Transfer Assistance None None Patient Identification Verified (Name & Yes Yes Yes ) Patient Requires Transmission-Based No No Precautions Height and Weight Body Mass Index (BMI) 28.8 28.8 28.8 BMI Classification Overweight Overweight Overweight Vital Signs Temperature (97.8 F-99.1 F) 97.2 F L 97.5 F L 96.5 F L Temperature Source Temporal Temporal Temporal Pulse Rate (60-100) 85 84 Pulse Location Monitor Monitor Respiratory Rate (12-18) 16 16 Respiratory rate source Observation Observation Oxygen Delivery Method Room Air Room Air Blood Pressure (90/60-120/80) 144/69 H 140/69 H Blood Pressure Mean (mm Hg) 94 92 Source Monitor Monitor Position Sitting Supine Blood Pressure Location Left Arm Left Arm History Since Last Visit- (Skip if this is Patient's initial visit) Have you changed medications since your No No No last visit? Any new allergies or adverse reactions No No No Had a fall/change in ADL's that may No No No increase risk of falls Signs or symptoms of abuse and/or No No No neglect since last visit Have you been in the hospital since your No No No last visit? Has dressing in place as prescribed Yes Yes Yes Has compression in place as prescribed No Yes N/A Has offloadiing in place as prescribed Yes N/A Yes Experienced any changes in pain level or No No No management Left Footwear Surgical Shoe Surgical Shoe Surgical Shoe with pressure with pressure with pressure relief insole relief insole relief insole Right Footwear Regular Shoe Regular Shoe Regular Shoe Pain Scale: 0-10 Numeric Is Patient Pain Free? Yes Yes Yes 12/05/21 09:21 - Today's Visit Information Type of service Follow-up Visit (Physician/VOCATIONAL REHABILITATION COUNSELOR ) Arrival Mode Ambulatory, Crutches Transfer Assistance None Patient Identification Verified (Name & Yes ) Patient Requires Transmission-Based No Precautions Height and Weight Body Mass Index (BMI) 28.8 BMI Classification Overweight Vital Signs Temperature (97.8 F-99.1 F) 96.8 F L Temperature Source Temporal Pulse Rate (60-100) 84 Pulse Location Monitor Respiratory Rate (12-18) 16 Respiratory rate source Observation Oxygen Delivery Method Room Air Blood Pressure (90/60-120/80) 157/76 H Blood Pressure Mean (mm Hg) 103 Source Monitor Position Sitting Blood Pressure Location Left Arm History Since Last Visit- (Skip if this is Patient's initial visit) Have you changed medications since your No last visit? Any new allergies or adverse reactions No Had a fall/change in ADL's that may No increase risk of falls Signs or symptoms of abuse and/or No neglect since last visit Have you been in the hospital since your No last visit? Has dressing in place as prescribed Yes Has compression in place as prescribed N/A Has offloadiing in place as prescribed Yes Experienced any changes in pain level or No management Left Footwear Regular Shoe Right Footwear Surgical Shoe with pressure relief insole Pain Scale: 0-10 Numeric Is Patient Pain Free? Yes - Nurse 1 - General Ulcer Measurement Start: 11/14/21 08:19 Freq: Status: Active Protocol: Activity Type Activity Date Activity User E-Sign Co-Sign Detail Recorded Client Recorded Date Recorded By Document 11/14/21 08:19 [facility] [id number] 11/14/21 08:26 [facility] Document 11/23/21 13:09 KR [id number] 11/23/21 13:15 KR Document 11/28/21 09:24 [facility] [id number] 11/28/21 09:40 [facility] Document 12/05/21 09:21 [facility] [id number] 12/05/21 09:34 BM 11/14/21 11/23/21 11/28/21 08:19 13:09 09:24 Wound Center Nurse 1 #4- R FOOT HALLUX AMP SITE -Combined with other wound No No -Current Size (cm) - Length 6.5 5.6 8.8 -Current Size (cm) - Width 3 3.2 2.8 -Current Size (cm) - Depth 3.3 3.3 1.2 -Total Square Cm 19.5 17.92 24.64 -Date of Last Picture (Recall this 11/14/21 11/28/21 field) -Photo Taken Yes Yes -Epithelialization None Present None Present -Tunneling No No -Undermining/Tunneling No No -Circular Undermining No No -Exudate Amt Large Large Large -Exudate Type Serosanguineous Yellow/Green Serosanguineous -Wound Margin Distinct, Distinct, Distinct, Outline Outline Outline Attached Attached Attached -Granulation Amt Small (1-33%) Medium (34-66%) Medium (34-66%) -Granulation Quality Red Red Red -Slough/Fibrin Yes Yes -Necrosis Amt Large (67-100%) Large (67-100%) Medium (34-66%) -Necrotic Tissue Type Adherent Slough Adherent Slough Adherent Slough -Structure Exposed Bone Tendon,Joint, Bone Fat Layer Exposed -Texture (Ashlyn-wound Skin Appearance) Assessed Assessed, Assessed, Scarring Localized Edema ,Scarring -Moisture (Ashlyn-wound Skin Appearance) Assessed Assessed,Dry/ Assessed Scaly -Color (Ashlyn-wound Skin Appearance) Assessed, No Abnormality, Assessed, Erythema Assessed Erythema -Temperature (Ashlyn-wound Skin No Abnormality No Abnormality No Abnormality Appearance) (Pt Warm) (Pt Warm) (Pt Warm) -Tenderness on Palpation (Ashlyn-wound No No Yes Skin Appearance) -Ulcer Cleansing Rinsed/ Rinsed/ Soap and Water Irrigated with Irrigated with Saline Saline -Foul Odor after Cleansing No No No -Anesthetic Used 5% Lidocaine 5% Lidocaine 4% Lidocaine Gel Gel Solution 12/05/21 09:21 Wound Center Nurse 1 #4- R FOOT HALLUX AMP SITE -Combined with other wound No -Current Size (cm) - Length 6.8 -Current Size (cm) - Width 2.9 -Current Size (cm) - Depth 2.2 -Total Square Cm 19.72 -Date of Last Picture (Recall this field) -Photo Taken No -Epithelialization None Present -Tunneling No -Undermining/Tunneling No -Circular Undermining No -Exudate Amt Large -Exudate Type Serosanguineous -Wound Margin Distinct, Outline Attached -Granulation Amt Medium (34-66%) -Granulation Quality Pale,Red -Slough/Fibrin Yes -Necrosis Amt Medium (34-66%) -Necrotic Tissue Type Adherent Slough -Structure Exposed -Texture (Ashlyn-wound Skin Appearance) Assessed, Scarring -Moisture (Ashlyn-wound Skin Appearance) Assessed -Color (Ashlyn-wound Skin Appearance) Assessed -Temperature (Ashlyn-wound Skin No Abnormality Appearance) (Pt Warm) -Tenderness on Palpation (Ashlyn-wound Yes Skin Appearance) -Ulcer Cleansing Rinsed/ Irrigated with Saline -Foul Odor after Cleansing No -Anesthetic Used 4% Lidocaine Solution WC - Nurse 2 - General Ulcer CM Notes Start: 11/14/21 08:19 Freq: Status: Active Protocol: Activity Type Activity Date Activity User E-Sign Co-Sign Detail Recorded Client Recorded Date Recorded By Document 11/14/21 08:31 Desktop 11/14/21 08:34 Document 11/28/21 09:50 [id number] 11/28/21 09:55 Document 12/05/21 09:57 [id number] 12/05/21 10:02 11/14/21 11/28/21 12/05/21 08:31 09:50 09:57 Wound Center Nurse 2 #4- R FOOT HALLUX AMP SITE -Time 08:32 09:50 -Correct Patient Yes Yes No -Correct Side, Site, Position Yes Yes No -Correct Procedure Yes Yes No -Procedure Performed Yes Yes No -Type of Procedure Debridement Debridement -Clinical Debridement Subcutaneous Subcutaneous -Tissue Removed Subcutaneous Subcutaneous -Post Debridement (cm) - Length 6.5 8.8 -Post Debridement (cm) - Width 3.1 2.8 -Post Debridement (cm) - Depth 3.3 1.3 -Total Square (Post) (cm) 20.15 24.64 -Area of Debridement (cm) - Length 6.5 8.8 -Area of Debridement (cm) - Width 3.1 2.8 -Total Square (Area) (cm) 20.15 24.64 -Tunneling No No -Undermining/Tunneling No No -Circular Undermining No No -Wound/Ulcer Outcome Not Healed Not Healed Not Healed -Ulcer Cleansing Rinsed/ Rinsed/ Irrigated with Irrigated with Saline Saline -Foul Odor after Cleansing No -Bioengineered Tissue No No -Bleeding Controlled with Pressure Pressure -Treatment Response Procedure Procedure Tolerated Well Tolerated Well -Offloading Yes Yes -Type of Offloading Surgical Shoe Surgical Shoe -Assistive Device(s) Crutches -Debridement - Subq, 1st 20sq cm Yes Yes No -Debridement, SubQ, ea addt'l 20sq cm 1 1 or part thereof Pain Scale: 0-10 Numeric Is Patient Pain Free? Yes Yes Yes - Nurse 3 - General Ulcer D/C NN Start: 11/14/21 08:19 Freq: Status: Active Protocol: Activity Type Activity Date Activity User E-Sign Co-Sign Detail Recorded Client Recorded Date Recorded By Document 11/14/21 08:43 [facility] [id number] 11/14/21 08:43 [facility] Document 11/23/21 13:55 [id number] 11/23/21 13:55 Document 12/05/21 10:12 [facility] [id number] 12/05/21 10:13 [facility] 11/14/21 11/23/21 12/05/21 08:43 13:55 10:12 Wound Care Nurse 3 #4- R FOOT HALLUX AMP SITE -Ulcer Cleansing Rinsed/ Rinsed/ Rinsed/ Irrigated with Irrigated with Irrigated with Saline Saline Saline -Foul Odor after Cleansing No No -Primary Dressing Applied Other Other -Other Dressing MOIST TO DRY wet to dry saline moist to dry -Primary Dressing Covered/Secured with Dry Gauze & Dry Gauze,Dry Dry Gauze & Roll Gauze, Gauze & Roll Roll Gauze, Secured with Gauze,Secured Secured with Tape,Other with Tape Tape -Other Covering ABD Treatment Response Procedure Procedure Tolerated Well Tolerated Well Pain Scale: 0-10 Numeric Is Patient Pain Free? Yes Yes Yes - Visit Discharge Discharge Condition Stable Stable Stable Ambulatory Status Ambulatory, Ambulatory, Ambulatory, Crutches Crutches Crutches Transportation Private Auto Private Auto Private Auto Facility Type Home Health Home Health Assessment/Plan Assessment/Plan (1) Ulcer of right foot with necrosis of bone: CODE(S): L97.514 - Non-pressure chronic ulcer of other part of right foot with necrosis of bone (2) Type 2 diabetes mellitus with diabetic polyneuropathy: CODE(S): E11.42 - Type 2 diabetes mellitus with diabetic polyneuropathy (3) Hallux limitus of right foot: CODE(S): M20.5X1 - Other deformities of toe(s) (acquired), right foot (4) Osteomyelitis: CODE(S): M86.9 - Osteomyelitis, unspecified QUALIFIERS: Osteomyelitis type: other acute Osteomyelitis location: foot Laterality: right Qualified Code(s): M86.171 - Other acute osteomyelitis, right ankle and foot (5) Other specified peripheral vascular diseases: CODE(S): I73.89 - Other specified peripheral vascular diseases (6) Delayed wound healing: CODE(S): T14.8XXD - Other injury of unspecified body region, subsequent encounter (7) 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 He was reassured there is no erythema or purulence to the foot however has continued exposed bone which is consistent with osteomyelitis. Dressing: To change dressings daily with dakin wet to dry. Wash: Soap and water Offload: Heel weightbearing with surgical shoe. To use assistive device. I recommend fully offloading the entire foot transitioning to nonweightbearing status with a walker or knee roller. I added a Plastizote liner and a foam offloading pad to take further pressure off of this ulcer site previously. Vascular: He had prior vascular surgery intervention at [facility] in [place] and also locally with Dr. Wells. On 11-27-2021 he had additional vascular surgery procedure performed; angioplasty of anterior tibial and peroneal arteries with improved foot flow. Host factors: He has uncontrolled diabetes with a self-reported A1c of over 9%. He understands this in combination with his known vascular disease make healing difficult. He is at risk for amputation and he is made this previously clear that he will not proceed forward with this. I recommend nutritional education to optimize healing. I advised him to avoid skipping meals. Advised him to eat a whole food balanced diet that not only focuses on adequate (not excessive) protein but also nutrient dense food intake. He defers account engineer referral. Resources were provided as reviewed them. This was discussed again today. Infection: Prior h/o cipro for PsA R foot osteo. recently worsened and updated cx now resistance to cipro. PICC placed, 6 weeks iv zosyn, stop date 12/13/21. ID recs appreciated and outpatient follow up planned. He is doing well with this so far. Preoperative scheduling has been started and he is scheduled for surgery this next week at [facility]. I answered all his questions. Preoperative indications, planned procedure, benefits, risk, anticipated healing time and management were reviewed. The patient understands and elects proceed with surgery at this time. No guarantees were made. The patient understands risk and complications include but are not limited to following: pain, swelling, scarring, need for further surgery, tendon contracture, transfer lesion, arthritis, need for further surgery, delayed or nonhealing, infection, blood clot, allergic reaction, loss of limb, function, or life. The informed surgical limb and consent was signed today: right foot first ray resection. I answered all the patient's questions. Preoperative diagnostic data and H&P will be reviewed. Note: [employer] speech recognition veterinarian poultry software was used to create portions of this document. Sound-alike and misspelled words, as well as other veterinarian poultry errors may be contained in the documentation. The medical decision making level is moderate. There is noted moderate risk of morbidity after considering this treatment plan and diagnostic data. Considerations were given to prescription management, decisions regarding surgical options, or social determinants of health. The problems addressed require a moderate decision making level which includes one or more chronic illnesses (w/ exacerbation, progression, or side effects), two or more stable chronic illnesses, one undiagnosed new problem w/ uncertain prognosis, one acute illness with systemic symptoms, or one acute complicated injury. The medical decision making level is moderate based on data including at least three of the following: review of prior external notes, review of a test, ordering a test, assessment requiring an independent historian.
== END 2021-12-08 23:59 | disposition home or self-care (01) ==
LOC: WC 09:15
PROVIDERS: PCP Family Medicine; Visit Provider Podiatrist
DX: E11.621 Type 2 diabetes mellitus with foot ulcer (principal); E11.51 Type 2 diabetes mellitus with diabetic peripheral angiopathy without gangrene; T87.89 Other complications of amputation stump; L97.512 Non-pressure chronic ulcer of other part of right foot with fat layer exposed; M86.171 Other acute osteomyelitis, right ankle and foot; E11.42 Type 2 diabetes mellitus with diabetic polyneuropathy; F41.9 Anxiety disorder, unspecified; Y83.5 Amputation of limb(s) as the cause of abnormal reaction of the patient, or of later complication, without mention of misadventure at the time of the procedure
CPT/HCPCS: 11042; 11045; 99213; G0463

== ENCOUNTER 2021-12-10 10:39 | Outpatient (RCR) | payer BC, SELFPAY ==
[2021-12-10 11:01] LABS: Erythrocyte Sedimentation Rate 29 mm/hr (0-20)
[2021-12-10 11:04] LABS: Hematocrit 35.9 % (40-54); Hemoglobin 11.7 g/dL (13.0-16.5); Mean Corp Hgb Conc 32.6 g/dL (32-36); Mean Corpuscular Hgb 25.7 pg (27.0-32.0); Mean Corpuscular Volume 78.9 fL (80-94); Mean Platelet Vol. 9.9 fl (6.2-12.0); Platelet Count 195 K/mm3 (150-450); RBC Distribution Width CV 14.7 % (11.6-14.6); RBC Distribution Width SD 41.7 fl (35.1-43.9); Red Blood Count 4.55 M/mm3 (4.6-6.2); White Blood Count 6.2 K/mm3 (4.4-11.0)
[2021-12-10 11:23] LABS: Anion Gap 6 (5-15); BUN 12 mg/dL (7-18); BUN/Creat Ratio 9.5 RATIO (10-20); Calcium,Total 9.1 mg/dL (8.5-10.1); Chloride 105 mmol/L (98-107); Creatinine, Serum 1.26 mg/dL (0.70-1.30); EST Glomerular Filtration Rate 61 mL/min (>60); Est Glom Filt Rate - Afr Amer 74 mL/min (>60); Glucose 207 mg/dL (74-106); Sodium Level 138 mmol/L (136-145)
== END 2021-12-10 18:00 | disposition home or self-care (01) ==
LOC: HHLAB 10:39
PROVIDERS: PCP Family Medicine; Visit Provider Podiatrist
DX: Z79.82 Long term (current) use of aspirin (principal); Z45.2 Encounter for adjustment and management of vascular access device; Z47.81 Encounter for orthopedic aftercare following surgical amputation; Z51.81 Encounter for therapeutic drug level monitoring; Z89.411 Acquired absence of right great toe; Z95.820 Peripheral vascular angioplasty status with implants and grafts; Z60.2 Problems related to living alone
CPT/HCPCS: 80048; 85027; 85652

== ENCOUNTER 2021-12-11 11:55 | Day surgery (SDC) | payer BC, SELFPAY ==
[2021-12-11] VITALS (8 sets, daily range): BP systolic 134–173; BP diastolic 78–92; PULSE 70–75; RESP 16–18; TEMP 36.2–36.4; O2SAT 95–100; BMI 30.1
[2021-12-11] MEDS: Lactated Ringers 1,000 ML 15 ML IV (12:15)
[2021-12-11 12:31] LABS: Bedside Glucose 198 mg/dL (74-106)
--- NOTE | 2021-12-11 13:57 | EX.PCM.DISCH ---
Discharge Instructions Diet Discharge Diet: Carb Control Diet Activity Discharge Activity: May Not Drive and May Shower (IF YOU USE A SHOWER BAG) Weight Bearing Status: No weight bearing Keep extremity elevated above heart level: Right Leg Dressing / Incision Call your doctor if your incision/area has: Continuous Slow Oozing, Sudden Increased Bleeding, Increased Pain/ Swelling, Increased Redness, Foul Smelling Discharge and Swelling at the incision site Call your doctor if you observe: Fever of 101 or Higher, Calf discomfort and Uncontrolled pain Cleanse incision/area with: Keep Dressing Clean & Dry Follow Up Care Please Follow Up With: Natali Orosco DPM When: NEXT WEEK AT CLINIC. CALL [phone] SOONER IF QUESTIONS OR CONCERNS. Test Results: Test results from this visit will be discussed in further detail at your follow-up appointment, if applicable. Discharge Plan Admission Primary Reason for Your Visit: S\P RIGHT FOOT FIRST RAY RESECTION Attending Provider: Natali Orosco Primary Care Provider: Nitin Malagon Discharge Orders/Prescriptions Prescriptions: New oxycodone-acetaminophen 5-325 mg tablet 1 tab PO Q8H PRN (Reason: pain) 7 Days Qty: 21 RF: 0 No Action fluticasone propionate 50 MCG blister with device 2 puff IH DAILY RF: 0 carvedilol 6.25 MG tablet 6.25 mg PO BID RF: 0 sertraline 100 MG tablet 100 mg PO DAILY RF: 0 clopidogrel 75 MG tablet 75 mg PO DAILY RF: 0 metformin 1,000 MG tablet 1,000 mg PO BID RF: 0 glimepiride 4 MG tablet 8 mg PO DAILY RF: 0 aspirin 81 MG tablet,chewable 81 mg PO DAILY@0800 RF: 0 albuterol sulfate 1 INHALER inhaler 1 - 2 puff INHALATION Q4H PRN PRN (Reason: Wheezing) RF: 0 Januvia 100 mg tablet 100 mg PO DAILY RF: 0 amlodipine 10 mg Tablet 10 mg PO DAILY RF: 0 ezetimibe 10 mg Tablet 10 mg PO DAILY RF: 0 piperacillin-tazobactam 3.375 gram recon soln 3.375 g IV Q8H Qty: 114 RF: 0 HySept 0.25 % solution 1 applic topical DAILY Qty: 473 RF: 0 Referrals / Follow Up: Nitin Malagon MD [Primary Care Provider] - Natali Orosco DPM [STAFF PHYSICIAN] - In 1 Week Disposition Disposition (needs filled in before D/C Order can be placed): Home, Self Care
--- NOTE | 2021-12-11 14:00 | RAD_ITS ---
STUDY: X-RAY - RIGHT FOOT CLINICAL: Male, 61 years old. REMOVAL BONE INCLUDING UP TO A 1ST RAY RESECTION TECHNIQUE: view(s) of the foot. COMPARISON: None. FINDINGS: Normal talus, calcaneus, and tarsal bones. Normal visualized subtalar, talonavicular, calcaneocuboid, tarsal and tarsometatarsal articulations. Normal metatarsi. There has been amputation of the great toe. Normal second through fifth metatarsophalangeal joints. Normal interphalangeal joints and phalanges of the lesser toes. The soft tissue structures are unremarkable. RAD/Foot 2 Views IMPRESSION: There has been amputation of the great toe. Electronically Signed: Sanjeev Bryant MD at 23:37 EDT ,
--- NOTE | 2021-12-11 14:00 | BON_PTH ---
PATIENT: ROSETTA STEWART LOC: [facility] [place] U#:[id number] AGE/SX: 61/M ROOM: RE12/11/[address]: Dr. Natali Orosco DPM : 1960 BED: DIS: 12/11/2021 SPEC #: [id number] RECD: 12/11/21 18:56 STATUS: LANCE REMitra #: [id number] GHASSAN: 12/11/21 14:[address]: Natali Orosco DEPT: SURGICAL PATHOLOGY RECD BY: Canddia Latif ENTERED: 12/12/21 09:35 SP TYPE: Bone OTHR DR: Dr. Nitin Malagon MD Tissues: A - Toe, NOS B - Toe, NOS Procedures: Decalcification bone/plaque Surgery Specimen Level IV HEADER OPERATION: Removal of Nonviable Foot Tissue and Bone PRE-OP DIAGNOSIS: Osteomyelitis TISSUE SUBMITTED: A - First Metatarsal Right Foot, B - Clearance Fragment MICROSCOPIC DIAGNOSIS A. First metatarsal right foot, biopsy: A piece of bone with acute osteomyelitis. B. Clearance fragment: Pieces of bone with reactive changes, negative for acute osteomyelitis. CATHY:stefan 12/14/2021 MICROSCOPIC DESCRIPTION Slides are reviewed. GROSS DESCRIPTION A - Received in fixative is one container labeled with the patient's name and designated first metatarsal right foot. The specimen consists of a piece of bone measuring 2.7 x 3 x 2.5 cm. Insurance Sales Producer sections are submitted in two cassettes after decalcification. B - Received in fixative is one container labeled with the patient's name and designated clearance fragment. The specimen consists of two pieces of bone measuring in aggregate 1.5 x 1.5 x 0.3 cm. The entire specimen is submitted in two cassettes after decalcification. / CATHY:stefan 12/12/2021 TC:2 CPT: 48242 x2, 90209 x2
[2021-12-11] MEDS: Cefazolin 2 GM in 0.9% Normal Saline 100 ML IV (14:01)
[2021-12-11] MEDS: Lidocaine 1% (20 ml mdv) 20 ML Vial (14:15)
--- NOTE | 2021-12-11 15:10 | PCM.OPRPT ---
Problems Associated Problem List Diagnoses (1) Acute osteomyelitis of metatarsal bone of right foot: (2) Non-pressure chronic ulcer of other part of right foot with necrosis of bone: Report of Operation Date of Procedure: 12/11/21 Pre-Operative Diagnosis: osteomyelitis right foot ulcer right foot with bone Post-Operative Diagnosis: osteomyelitis right foot ulcer right foot with bone Surgery/Procedure Performed:: first ray resection, right foot Description of Surgical Findings:: Hemostasis: No tourniquet utilized, anatomic dissection, controlled Materials: 2-0 Vicryl, 3-0 and 2-0 Prolene Specimen sent The patient tolerated the procedure and anesthesia well. The patient was transported to the PACU with vital signs stable and vascular status intact to the surgical limb. To ice and elevate for pain and inflammation management. Postoperative x-rays were reviewed prior to leaving the operating room. Adequate first ray resection is noted without acute injuries, foreign body or soft tissue emphysema. Postoperative orders were entered electronically. Surgeon: Kwesi,Natali planograph operator: None (Uriah Hernandez DPM, PGY1) Type of Anesthesia: Local MAC (preop: 1:1 mix 1% lidocaine plain and0.5% marcaine plain first ray block fashion right foot, 10 cc) Specimen's removed: 1. First metatarsal bone right foot sent to pathology 2. First metatarsal bone right foot sent to microbiology (aerobic, anaerobic, acid-fast, fungal) 3. Clearance fragment right foot sent to pathology 4. Clearance fragment right foot sent to microbiology (aerobic, anaerobic, acid-fast, fungal) Drains: None Estimated Blood Loss (mL): <75 mL Description of Procedure: Indications: The patient is a 61 year old male with multiple medical problems including PAD, diabetes, peripheral neuropathy underwent a prior open right hallux amputation for treatment of osteomyelitis and nonhealing ulcer complicated with his diabetes and vascular disease. He proceeded to have nonhealing and further osteomyelitis progression of the remaining distal aspect of the first metatarsal. He underwent recent additional revascularization process with vascular surgeon, Dr. Wells. Intervention included angioplasty of the anterior tibial artery into the dorsalis pedis and balloon angioplasty of the entire peroneal artery. Preoperative x-rays demonstrated some rare fraction of the first metatarsal head without soft tissue emphysema or foreign body. His vascular calcifications were also seen. There were no acute fractures or dislocations. Since his revascularization process he has reduced limb pain and increased perfusion with wound debridement is noted at the wound healing center. Clinically, there is exposed first metatarsal head that is aguilar and soft and discolored. There is no sendy necrosis purulence erythema or streaking at this time to the right foot. Medical clearance and optimization was performed by Dr. Johnson and his preoperative diagnostic data was reviewed including CBC, CMP and A1c. Preoperative H&P were reviewed including his diagnostic data. There is no gross abnormalities noted with labs. Preoperative indications, planned procedure, benefits, risk, anticipated healing time and management were reviewed. The patient understands and elects proceed with surgery at this time. No guarantees were made. The patient understands risk and complications include but are not limited to following: pain, swelling, scarring, need for further surgery, tendon contracture, transfer lesion, hardware failure, arthritis, need for further surgery, delayed or nonhealing, infection, blood clot, allergic reaction, loss of limb, function, or life. The informed surgical limb and consent were signed. I answered all the patient's questions. Procedure in detail: The patient was brought into the operating room, and was place on the operating room table in the supine position. He was carefully secured to the operating room table with a safely belt around his waist. A time out was performed, the patient was properly identified and the surgical plan was confirmed. He was already on IV antibiotics and has a PICC line in place which is managed by infectious disease specialist. A well padded pneumatic tourniquet was placed around the right lower thigh however this was not utilized. The patient received MAC anesthesia per the anesthesiologist, then a total of 10 mL was administered abided by dietary team as noted. The right lower extremity was prepped and draped in the usual aseptic manner. Surgery proceeded as the following: A everett elevator was used to reflect the soft tissue off of the first metatarsal shaft and the dorsal incision was extended to gain good exposure to the proximal diaphysis of the first metatarsal. A 15 blade was used to perform this incision. The bone of the first metatarsal head was soft and aguilar. Copious saline irrigation was performed. At this time clean drapes, gloves and instrumentation were used. A clean sagittal saw blade was next used to obtain a clearance fragment and this was sent to both microbiology and pathology as well. Intraoperative fluoroscopy was used to evaluate the amputation site as noted. Copious saline was performed again. All remaining tissues appeared to be healthy and viable, free of any infection. Minimal electrocauterization was performed and direct pressure was applied to maintain hemostasis. No pulsatile bleeding was noted and capillary fill time was brisk to all margins of the amputation site. Deep closure was performed with the Vicryl suture. The skin was next reapproximated utilizing no touch technique and a non tensile manner with simple, vertical mattress, and horizontal mattress techniques. A dressing was next applied including Adaptic soaked in Betadine, 4 x 4 gauze, Kerlix, abdominal pads and Romulo wrap applied in a noncompressive manner. After procedure: The patient tolerated the procedure and anesthesia well. The patient was transported to the PACU with vital signs stable and vascular status intact to the surgical limb. To ice and elevate for pain and inflammation management. Postoperative x-rays were reviewed prior to leaving the operating room as noted. He will be discharged home today. To continue on Plavix. To maintain a nonweightbearing status to the right lower extremity. To keep his dressing clean, dry, and intact until follow-up in clinic next week. Postoperative pain medication was provided and he was advised on safe and proper use. I will follow his microbiology and pathology specimen results. In the meantime, he was advised to continue on IV antibiotics. Postoperative orders were entered electronically. Natali Orosco DPM, [facility] [place] Grafts/Implants Used: None Complications none Admit VTE Documentation VTE Present on Admission: No VTE Mechan Device Prophylaxis: SCD's VTE Pharm Prophylaxis ordered?: Yes
--- NOTE | 2021-12-11 15:40 | RAD_ITS ---
EXAM: XR RIGHT FOOT COMPLETE, 3 OR MORE VIEWS CLINICAL INDICATION: s/p first ray resection TECHNIQUE: Frontal, lateral and oblique views of the right foot. This report was created using [employer] report generation technology. COMPARISON: 11/01/2021 FINDINGS: BONES/JOINTS: Amputation of the portion of the first metatarsal bone. Soft tissue flap in place. Metallic density overlying the plantar surface. There is a calcaneal spur. No acute fracture. No subluxation. Normal alignment. Preservation of the joint space. SOFT TISSUES: Unremarkable. No soft tissue swelling or gas. No radiopaque foreign body. RAD/Foot min 3 Views IMPRESSION: Amputation of the first digit. Electronically Signed: Inderjit Knapp MD at 21:38 EDT Reading Location ID and State: [facility] / [place] , Service support ,
--- NOTE | 2021-12-11 16:46 | SUR.PHASEII ---
this nurse flushed patient's right upper arm picc with 10ml 0.9NS and instilled heparin lock. Patient tolerated well.
== END 2021-12-11 16:56 | disposition home or self-care (01) ==
LOC: SDC 11:56 → AC 11:57
PROVIDERS: PCP Family Medicine; Referring Provider Podiatrist; Visit Provider Podiatrist
PROC: (CPT 28810; principal; 2021-12-11 13:45)
DX: E11.69 Type 2 diabetes mellitus with other specified complication (principal); E11.621 Type 2 diabetes mellitus with foot ulcer; E11.51 Type 2 diabetes mellitus with diabetic peripheral angiopathy without gangrene; L97.514 Non-pressure chronic ulcer of other part of right foot with necrosis of bone; M86.171 Other acute osteomyelitis, right ankle and foot; E11.42 Type 2 diabetes mellitus with diabetic polyneuropathy; I10 Essential (primary) hypertension; I25.2 Old myocardial infarction; Z95.5 Presence of coronary angioplasty implant and graft; Z79.02 Long term (current) use of antithrombotics/antiplatelets; Z79.82 Long term (current) use of aspirin; Z79.84 Long term (current) use of oral hypoglycemic drugs; Z79.899 Other long term (current) drug therapy
CPT/HCPCS: 28810; 73620; 73630; 76000; 82962; 87015; 87070; 87075; 87077; 87102; 87116; 87176; 87186; 87205; 87206; 88305; 88311; J7120; A4216; J2405

== ENCOUNTER 2022-01-02 09:00 | Outpatient (RCR) | payer BC, SELFPAY ==
[2021-12-09 00:12] VITALS: BP 157/76; PULSE 84; RESP 16; TEMP 36; BMI 28.8
[2021-12-19 09:26] VITALS: BP 158/73; PULSE 85; RESP 18; TEMP 36.3; BMI 28.8
--- NOTE | 2021-12-19 21:30 | PN.PCM_ITS ---
History of Present Illness Date of Service: 12/19/21 Chief Complaint: right foot ulcer / recent first ray resection surgery History of Wound: This 61-year-old diabetic male was seen in clinic today. He underwent amputation of the right hallux at the first metatarsophalangeal joint on 09/25/[address] Gertrudis DPM. He now continues on iv antibiotics in the outpatient setting. He denies any nausea, vomiting, fever, chills, or other constitutional symptoms. Patient has a history of anxiety and depression secondary to dealing with his chronic hallux ulceration for the last year. He has completed a procedure with Dr. Wells for vascular surgery intervention on 11-27-2021; angioplasty of anterior tibial and peroneal arteries with improved foot flow. He is now status post first ray resection/amputation that was performed on 12-11-2021 at [facility]. He has tried to keep pressure off thi s site. Progress of Wound: stable Objective Data Objective Data Vital Signs: Vital Signs Temp Pulse Resp BP 97.3 F L 85 18 158/73 H 12/19/21 09:26 12/19/21 09:26 12/19/21 09:26 12/19/21 09:26 Weight: 86.183 kg Body Mass Index (BMI) 28.8 Physical Exam Const alert, oriented x3 and no apparent distress General Appearance: cooperative and comfortable HEENT normocephalic Lymph Lymphatic: no lymphedema noted Extremity Peripheral Pulses: Negative for posterior tibial pulses present or dorsalis pedis pulses present Skin Wound Narrative: first ray resection site is stable with sutures intact. distal most aspect remains open with hematogenous plug noted. no purulence, odor , erythema, streaking or eschar or necrosis noted. no bogginess or fluctuance on palpation to the surgical site. compartments remain soft to palpate Neuro oriented x3 and moves all extremities Debridement Note Debridement Note Wound debrided: right foot Wound Grade/Stage: Type of Debridement: Excisional debridement Anesthesia Used: 4% Lidocaine Solution Depth: in the subcutaneous layer Percentage of wound debrided: 100 Instrument Used: #15 blade Tissue Removed: fibrous, devitalized subcutaneous, biofilm, slough, dried hematogenous plug Severity: Fat Layer Exposed Amount of bleeding with debridement: Mild Bleeding Controlled with: Pressure Patient tolerated procedure: Patient tolerated procedure well Post-Debridement Measurements and Additional Note: Post-Debridement Measurements/Treatment WC - Nurse 1 - General Ulcer Assessment Start: 12/19/21 09:26 Freq: Status: Active Protocol: REHAN Activity Type Activity Date Activity User E-Sign Co-Sign Detail Recorded Client Recorded Date Recorded By Document 12/19/21 09:26 JONAH [id number] 12/19/21 09:41 RB 12/19/21 09:26 - Today's Visit Information Type of service Follow-up Visit (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 ) Arrival Mode Ambulatory, Crutches Transfer Assistance None Patient Identification Verified (Name & Yes ) Patient Requires Transmission-Based No Precautions Height and Weight Body Mass Index (BMI) 28.8 BMI Classification Overweight Vital Signs Temperature (97.8 F-99.1 F) 97.3 F L Temperature Source Temporal Pulse Rate (60-100) 85 Pulse Location Apical Respiratory Rate (12-18) 18 Respiratory rate source Observation Blood Pressure (90/60-120/80) 158/73 H Blood Pressure Mean (mm Hg) 101 Source Monitor Position Semi-Fowlers Blood Pressure Location Left Arm History Since Last Visit- (Skip if this is Patient's initial visit) Have you changed medications since your No last visit? Any new allergies or adverse reactions No Had a fall/change in ADL's that may No increase risk of falls Signs or symptoms of abuse and/or No neglect since last visit Have you been in the hospital since your No last visit? Has dressing in place as prescribed Yes Has compression in place as prescribed No Has offloadiing in place as prescribed Yes Experienced any changes in pain level or No management Left Footwear Regular Shoe Right Footwear Surgical Shoe with pressure relief insole Pain Scale: 0-10 Numeric Is Patient Pain Free? Yes - Nurse 1 - General Ulcer Measurement Start: 12/19/21 09:26 Freq: Status: Active Protocol: Activity Type Activity Date Activity User E-Sign Co-Sign Detail Recorded Client Recorded Date Recorded By Document 12/19/21 09:26 JONAH [id number] 12/19/21 09:41 RB 12/19/21 09:26 Wound Center Nurse 1 #4- R FOOT HALLUX AMP SITE post -op -Combined with other wound No -Current Size (cm) - Length 1.8 -Current Size (cm) - Width 1.3 -Current Size (cm) - Depth 0.2 -Total Square Cm 2.34 -Tunneling No -Undermining/Tunneling No -Circular Undermining No -Exudate Amt Large -Exudate Type Serosanguineous -Wound Margin Distinct, Outline Attached -Granulation Amt Medium (34-66%) -Granulation Quality Red -Slough/Fibrin Yes -Necrosis Amt Small (1-33%) -Necrotic Tissue Type Adherent Slough -Structure Exposed N/A -Texture (Ashlyn-wound Skin Appearance) Assessed -Moisture (Ashlyn-wound Skin Appearance) Assessed -Color (Ashlyn-wound Skin Appearance) Assessed -Temperature (Ashlyn-wound Skin No Abnormality Appearance) (Pt Warm) -Tenderness on Palpation (Ashlyn-wound No Skin Appearance) -Ulcer Cleansing Wound Cleanser -Foul Odor after Cleansing No -Anesthetic Used 4% Lidocaine Solution -Wound Comment(s) post op incision well approximated sutures intact WC - Nurse 2 - General Ulcer CM Notes Start: 12/19/21 09:26 Freq: Status: Active Protocol: Activity Type Activity Date Activity User E-Sign Co-Sign Detail Recorded Client Recorded Date Recorded By Document 12/19/21 09:50 [id number] 12/19/21 09:53 12/19/21 09:50 Wound Center Nurse 2 -Time 09:53 -Correct Patient Yes -Correct Side, Site, Position Yes -Correct Procedure Yes -Procedure Performed Yes -Type of Procedure Debridement -Clinical Debridement Subcutaneous -Tissue Removed Subcutaneous -Post Debridement (cm) - Length 0.1 -Post Debridement (cm) - Width 0.1 -Post Debridement (cm) - Depth 0.1 -Total Square (Post) (cm) 0.01 -Area of Debridement (cm) - Length 0.1 -Area of Debridement (cm) - Width 0.1 -Total Square (Area) (cm) 0.01 -Tunneling No -Undermining/Tunneling No -Circular Undermining No -Wound/Ulcer Outcome Not Healed -Ulcer Cleansing Rinsed/ Irrigated with Saline -Foul Odor after Cleansing No -Bioengineered Tissue No -Bleeding Controlled with Pressure -Treatment Response Procedure Tolerated Well -Offloading Yes -Type of Offloading Darco Shoe - Right -Debridement - Subq, 1st 20sq cm Yes Pain Scale: 0-10 Numeric Is Patient Pain Free? Yes - Nurse 3 - General Ulcer D/C NN Start: 12/19/21 09:26 Freq: Status: Active Protocol: Activity Type Activity Date Activity User E-Sign Co-Sign Detail Recorded Client Recorded Date Recorded By Document 12/19/21 11:48 DL [id number] 12/19/21 11:51 DL 12/19/21 11:48 Wound Care Nurse 3 #4- R FOOT HALLUX AMP SITE post -op -Ulcer Cleansing Soap and Water -Foul Odor after Cleansing No -Primary Dressing Applied Aquacel AG 4x4 -Primary Dressing Covered/Secured with Dry Gauze & Roll Gauze, Secured with Tape -Other Covering Betadine to incision -Aquacel AG 4x4 1 Right -Compression Wrap Romulo Wrap Treatment Response Procedure Tolerated Well Pain Scale: 0-10 Numeric Is Patient Pain Free? Yes WC - Visit Discharge Discharge Condition Stable Ambulatory Status Ambulatory, Crutches Transportation Private Auto Notes: Pt refused Tubigrip today, stated only need an romulo wrap. Assessment/Plan Assessment/Plan (1) Ulcer of right foot with necrosis of bone: CODE(S): L97.514 - Non-pressure chronic ulcer of other part of right foot with necrosis of bone (2) Type 2 diabetes mellitus with diabetic polyneuropathy: CODE(S): E11.42 - Type 2 diabetes mellitus with diabetic polyneuropathy (3) Hallux limitus of right foot: CODE(S): M20.5X1 - Other deformities of toe(s) (acquired), right foot (4) Osteomyelitis: CODE(S): M86.9 - Osteomyelitis, unspecified QUALIFIERS: Laterality: right Osteomyelitis location: foot Osteomyelitis type: other acute Qualified Code(s): M86.171 - Other acute osteomyelitis, right ankle and foot (5) Other specified peripheral vascular diseases: CODE(S): I73.89 - Other specified peripheral vascular diseases (6) Delayed wound healing: CODE(S): T14.8XXD - Other injury of unspecified body region, subsequent encounter (7) 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 He was reassured there is no erythema or purulence to the foot. Sutures intact from surgery and hematogenous plug was cleaned from open distal most aspect. Dressing: To change dressings daily with aquacell ag and dry dressing. Offload: Heel weightbearing with surgical shoe. To use assistive device. I recommend fully offloading the entire foot transitioning to nonweightbearing status with a walker or knee roller. This is imperative for healing. Vascular: He had prior vascular surgery intervention at [facility] in [facility] and also locally with Dr. Wells. On 11-27-2021 he had additional vascular surgery procedure performed; angioplasty of anterior tibial and peroneal arteries with improved foot flow. Host factors: He has uncontrolled diabetes with a self-reported A1c of over 9%. He understands this in combination with his known vascular disease make healing difficult. He is at risk for amputation and he is made this previously clear that he will not proceed forward with this. I recommend nutritional education to optimize healing. I advised him to avoid skipping meals. Advised him to eat a whole food balanced diet that not only focuses on adequate (not excessive) protein but also nutrient dense food intake. 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 Resources were provided as reviewed them. This was discussed again today. Infection: Prior h/o cipro for PsA R foot osteo. recently worsened and updated cx now resistance to cipro. PICC placed, 6 weeks iv zosyn, stop date 12/13/21. Surgical clearance fragment from pathology was negative. Surgical clearance fragment from micro had pseudomonas growth. Additional oral cipro was recommended by ID specialist; to follow instructions as advised. ID physician communicated this plan. Note: [employer] speech recognition hospice nurse software was used to create portions of this document. Sound-alike and misspelled words, as well as other hospice nurse errors may be contained in the documentation. The medical decision making level is moderate. There is noted moderate risk of morbidity after considering this treatment plan and diagnostic data. Considerat ions were given to prescription management, decisions regarding surgical options, or social determinants of health. The problems addressed require a moderate decision making level which includes one or more chronic illnesses (w/ exacerbation, progression, or side effects), two or more stable chronic illnesses, one undiagnosed new problem w/ uncertain prognosis, one acute illness with systemic symptoms, or one acute complicated injury. The medical decision making level is moderate based on data including at least three of the following: review of prior external notes, review of a test, ordering a test, assessment requiring an independent historian.
[2021-12-26 08:24] VITALS: BP 139/72; PULSE 81; RESP 18; TEMP 36.3; BMI 28.8
--- NOTE | 2021-12-26 10:55 | PN.PCM_ITS ---
History of Present Illness Date of Service: 12/26/21 Chief Complaint: right foot ulcer / recent first ray resection surgery History of Wound: This 61-year-old diabetic male was seen in clinic today. He underwent amputation of the right hallux at the first metatarsophalangeal joint on 09/25/[address] Gertrudis DPM. He now continues on iv antibiotics in the outpatient setting. He denies any nausea, vomiting, fever, chills, or other constitutional symptoms. Patient has a history of anxiety and depression secondary to dealing with his chronic hallux ulceration for the last year. He has completed a procedure with Dr. Wells for vascular surgery intervention on 11-27-2021; angioplasty of anterior tibial and peroneal arteries with improved foot flow. He is now status post first ray resection/amputation that was performed on 12-11-2021 at [facility]. He has tried to keep pressure off thi s site. Progress of Wound: stable Objective Data Objective Data Vital Signs: Vital Signs Temp Pulse Resp BP 97.4 F L 81 18 139/72 H 12/26/21 08:24 12/26/21 08:24 12/26/21 08:24 12/26/21 08:24 Weight: 86.183 kg Body Mass Index (BMI) 28.8 Physical Exam Const alert, oriented x3 and no apparent distress General Appearance: cooperative and comfortable HEENT normocephalic Lymph Lymphatic: no lymphedema noted Extremity Peripheral Pulses: Negative for posterior tibial pulses present or dorsalis pedis pulses present Skin Wound Narrative: first ray resection site is stable with sutures intact. distal most aspect remains open with hematogenous plug noted. no purulence, odor , erythema, streaking or eschar or necrosis noted. no bogginess or fluctuance on palpation to the surgical site. compartments remain soft to palpate Neuro oriented x3 and moves all extremities Debridement Note Debridement Note Wound debrided: right foot Wound Grade/Stage: 3 Type of Debridement: Excisional debridement Anesthesia Used: 4% Lidocaine Solution Depth: in the subcutaneous layer Percentage of wound debrided: 100 Instrument Used: #15 blade Tissue Removed: fibrous, devitalized subcutaneous, biofilm, slough Severity: Fat Layer Exposed Amount of bleeding with debridement: Mild Bleeding Controlled with: Pressure Patient tolerated procedure: Patient tolerated procedure well Post-Debridement Measurements and Additional Note: Post-Debridement Measur ements/Treatment WC - Nurse 1 - General Ulcer Assessment Start: 12/19/21 09:26 Freq: Status: Active Protocol: REHAN Activity Type Activity Date Activity User E-Sign Co-Sign Detail Recorded Client Recorded Date Recorded By Document 12/19/21 09:26 RB [id number] 12/19/21 09:41 RB Document 12/26/21 08:24 RB [id number] 12/26/21 08:34 RB 12/19/21 12/26/21 09:26 08:24 WC - Today's Visit Information Type of service Follow-up Visit Follow-up Visit (Physician/NUTRITION ASSISTANT (Physician/NUTRITION ASSISTANT ) ) Arrival Mode Ambulatory, Ambulatory, Crutches Crutches Transfer Assistance None None Patient Identification Verified (Name & Yes Yes ) Patient Requires Transmission-Based No No Precautions Height and Weight Body Mass Index (BMI) 28.8 28.8 BMI Classification Overweight Overweight Vital Signs Temperature (97.8 F-99.1 F) 97.3 F L 97.4 F L Temperature Source Temporal Temporal Pulse Rate (60-100) 85 81 Pulse Location Apical Monitor Respiratory Rate (12-18) 18 18 Respiratory rate source Observation Observation Blood Pressure (90/60-120/80) 158/73 H 139/72 H Blood Pressure Mean (mm Hg) 101 94 Source Monitor Monitor Position Semi-Fowlers Semi-Fowlers Blood Pressure Location Left Arm Left Arm History Since Last Visit- (Skip if this is Patient's initial visit) Have you changed medications since your No No last visit? Any new allergies or adverse reactions No No Had a fall/change in ADL's that may No No increase risk of falls Signs or symptoms of abuse and/or No No neglect since last visit Have you been in the hospital since your No No last visit? Has dressing in place as prescribed Yes Yes Has compression in place as prescribed No No Has offloadiing in place as prescribed Yes Yes Experienced any changes in pain level or No No management Left Footwear Regular Shoe Regular Shoe Right Footwear Surgical Shoe Surgical Shoe with pressure with pressure relief insole relief insole Pain Scale: 0-10 Numeric Is Patient Pain Free? Yes Yes - Nurse 1 - General Ulcer Measurement Start: 12/19/21 09:26 Freq: Status: Active Protocol: Activity Type Activity Date Activity User E-Sign Co-Sign Detail Recorded Client Recorded Date Recorded By Document 12/19/21 09:26 RB [id number] 12/19/21 09:41 RB Document 12/26/21 08:24 RB [id number] 12/26/21 08:34 RB 12/19/21 12/26/21 09:26 08:24 Wound Center Nurse 1 #4- R FOOT HALLUX AMP SITE post -op -Combined with other wound No No -Current Size (cm) - Length 1.8 1.5 -Current Size (cm) - Width 1.3 1.5 -Current Size (cm) - Depth 0.2 3.5 -Total Square Cm 2.34 2.25 -Tunneling No No -Undermining/Tunneling No No -Circular Undermining No No -Exudate Amt Large Large -Exudate Type Serosanguineous Serosanguineous -Wound Margin Distinct, Distinct, Outline Outline Attached Attached -Granulation Amt Medium (34-66%) Medium (34-66%) -Granulation Quality Red [place] -Slough/Fibrin Yes Yes -Necrosis Amt Small (1-33%) Small (1-33%) -Necrotic Tissue Type Adherent Slough Adherent Slough -Structure Exposed N/A N/A -Texture (Ashlyn-wound Skin Appearance) Assessed Assessed -Moisture (Ashlyn-wound Skin Appearance) Assessed Assessed -Color (Ashlyn-wound Skin Appearance) Assessed Assessed -Temperature (Ashlyn-wound Skin No Abnormality No Abnormality Appearance) (Pt Warm) (Pt Warm) -Tenderness on Palpation (Ashlyn-wound No No Skin Appearance) -Ulcer Cleansing Wound Cleanser Wound Cleanser -Foul Odor after Cleansing No No -Anesthetic Used 4% Lidocaine 5% Lidocaine Solution Gel -Wound Comment(s) post op sutures intacrt incision well approximated sutures intact WC - Nurse 2 - General Ulcer CM Notes Start: 12/19/21 09:26 Freq: Status: Active Protocol: Activity Type Activity Date Activity User E-Sign Co-Sign Detail Recorded Client Recorded Date Recorded By Document 12/19/21 09:50 [id number] 12/19/21 09:53 Document 12/26/21 08:47 [id number] 12/26/21 08:51 12/19/21 12/26/21 09:50 08:47 Wound Center Nurse 2 #4- R FOOT HALLUX AMP SITE post -op -Time 09:53 08:47 -Correct Patient Yes Yes -Correct Side, Site, Position Yes Yes -Correct Procedure Yes Yes -Procedure Performed Yes Yes -Type of Procedure Debridement Debridement -Clinical Debridement Subcutaneous Subcutaneous -Tissue Removed Subcutaneous Subcutaneous -Post Debridement (cm) - Length 0.1 2.0 -Post Debridement (cm) - Width 0.1 1.4 -Post Debridement (cm) - Depth 0.1 1 -Total Square (Post) (cm) 0.01 2.80 -Area of Debridement (cm) - Length 0.1 2.0 -Area of Debridement (cm) - Width 0.1 1.4 -Total Square (Area) (cm) 0.01 2.80 -Tunneling No No -Undermining/Tunneling No No -Circular Undermining No No -Wound/Ulcer Outcome Not Healed Not Healed -Ulcer Cleansing Rinsed/ Rinsed/ Irrigated with Irrigated with Saline Saline -Foul Odor after Cleansing No No -Bioengineered Tissue No No -Bleeding Controlled with Pressure Pressure -Treatment Response Procedure Procedure Tolerated Well Tolerated Well -Offloading Yes Yes -Type of Offloading [place] Shoe - Surgical Shoe Right -Debridement - Subq, 1st 20sq cm Yes Yes Pain Scale: 0-10 Numeric Is Patient Pain Free? Yes Yes WC - Nurse 3 - General Ulcer D/C NN Start: 12/19/21 09:26 Freq: Status: Active Protocol: Activity Type Activity Date Activity User E-Sign Co-Sign Detail Recorded Client Recorded Date Recorded By Document 12/19/21 11:48 DL [id number] 12/19/21 11:51 DL Document 12/26/21 09:03 [facility] [id number] 12/26/21 09:04 [facility] 12/19/21 12/26/21 11:48 09:03 Wound Care Nurse 3 #4- R FOOT HALLUX AMP SITE post -op -Ulcer Cleansing Soap and Water -Foul Odor after Cleansing No -Primary Dressing Applied Aquacel AG 4x4 Aquacel AG 2x2, Other -Other Dressing betadine -Primary Dressing Covered/Secured with Dry Gauze & Dry Gauze & Roll Gauze, Roll Gauze, Secured with Secured with Tape Tape,Other -Other Covering Betadine to abd incision -Aquacel AG 4x4 1 -Aquacel AG 2x2 1 Right -Compression Wrap Romulo Wrap -Tubular Bandage Single Layer -Size of Tubigrip Used Size E -Size E ($) 1 Treatment Response Procedure Procedure Tolerated Well Tolerated Well Pain Scale: 0-10 Numeric Is Patient Pain Free? Yes Yes WC - Visit Discharge Discharge Condition Stable Stable Ambulatory Status Ambulatory, Ambulatory, Crutches Crutches Transportation Private Auto Private Auto Notes: Pt refused Tubigrip today, stated only need an romulo wrap. Facility Type Home Health Assessment/Plan Assessment/Plan (1) Ulcer of right foot with necrosis of bone: CODE(S): L97.514 - Non-pressure chronic ulcer of other part of right foot with necrosis of bone (2) Type 2 diabetes mellitus with diabetic polyneuropathy: CODE(S): E11.42 - Type 2 diabetes mellitus with diabetic polyneuropathy (3) Hallux limitus of right foot: CODE(S): M20.5X1 - Other deformities of toe(s) (acquired), right foot (4) Osteomyelitis: CODE(S): M86.9 - Osteomyelitis, unspecified QUALIFIERS: Osteomyelitis type: other acute Osteomyelitis location: foot Laterality: right Qualified Code(s): M86.171 - Other acute osteomyelitis, right ankle and foot (5) Other specified peripheral vascular diseases: CODE(S): I73.89 - Other specified peripheral vascular diseases (6) Delayed wound healing: CODE(S): T14.8XXD - Other injury of unspecified body region, subsequent encounter (7) 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 He was reassured there is no erythema or purulence to the foot. Sutures intact from surgery and hematogenous plug was cleaned from open distal most aspect. Dressing: To change dressings daily with iodoform packing. Offload: Heel weightbearing with surgical shoe. To use assistive device. I recommend fully offloading the entire foot transitioning to nonweightbearing status with a walker or knee roller. This is imperative for healing. Vascular: He had prior vascular surgery intervention at [facility] in [facility] and also locally with Dr. Wells. On 11-27-2021 he had additional vascular surgery procedure performed; angioplasty of anterior tibial and peroneal arteries with improved foot flow. Host factors: He has uncontrolled diabetes with a self-reported A1c of over 9%. He understands this in combination with his known vascular disease make healing difficult. He is at risk for amputation and he is made this previously clear that he will not proceed forward with this. I recommend nutritional education to optimize healing. I advised him to avoid skipping meals. Advised him to eat a whole food balanced diet that not only focuses on adequate (not excessive) protein but also nutrient dense food intake. 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 Resources were provided as reviewed them. This was discussed again today. Infection: Prior h/o cipro for PsA R foot osteo. recently worsened and updated cx now resistance to cipro. PICC placed, 6 weeks iv zosyn, stop date 12/13/21. Surgical clearance fragment from pathology was negative. Surgical clearance fragment from micro had pseudomonas growth. Additional oral cipro was recommended by ID specialist; to follow instructions as advised. ID physician communicated this plan. Note: [employer] speech recognition combination technician software was used to create portions of this document. Sound-alike and misspelled words, as well as other combination technician errors may be contained in the documentation.
[2022-01-02 09:32] VITALS: BP 156/79; PULSE 80; RESP 18; TEMP 36.3; BMI 28.8
--- NOTE | 2022-01-02 15:37 | PCM.WC.PN ---
History of Present Illness Date of Service: 01/02/22 Chief Complaint: right foot ulcer / recent first ray resection surgery History of Wound: This 61-year-old diabetic male was seen in clinic today. He underwent amputation of the right hallux at the first metatarsophalangeal joint on 09/25/[address] Gertrudis DPM. He now continues on iv antibiotics in the outpatient setting. He denies any nausea, vomiting, fever, chills, or other constitutional symptoms. Patient has a history of anxiety and depression secondary to dealing with his chronic hallux ulceration for the last year. He has completed a procedure with Dr. Wells for vascular surgery intervention on 11-27-2021; angioplasty of anterior tibial and peroneal arteries with improved foot flow. He is now status post first ray resection/amputation that was performed on 12-11-2021 at [facility]. He has tried to keep pressure off this site. He also looks very closely at his amputation site and noticed it was deep and it set him into a temporary panic. He has been very anxious that last couple of days. His sutures are intact. Progress of Wound: stable Objective Data Objective Data Vital Signs: Vital Signs Temp Pulse Resp BP 97.3 F L 80 18 156/79 H 01/02/22 09:32 01/02/22 09:32 01/02/22 09:32 01/02/22 09:32 Weight: 86.183 kg Body Mass Index (BMI) 28.8 Physical Exam Const alert, oriented x3 and no apparent distress General Appearance: cooperative and comfortable HEENT normocephalic Lymph Lymphatic: no lymphedema noted Extremity Peripheral Pulses: Negative for posterior tibial pulses present or dorsalis pedis pulses present Skin Wound Narrative: first ray resection site is stable with sutures intact. distal most aspect remains open with hematogenous plug noted. no purulence, odor , erythema, streaking or eschar or necrosis noted. no bogginess or fluctuance on palpation to the surgical site. compartments remain soft to palpate. hematogenous drainage only noted Neuro oriented x3 and moves all extremities Debridement Note Debridement Note Wound debrided: right partially closed amputation site Wound Grade/Stage: 3 Type of Debridement: Excisional debridement Anesthesia Used: 4% Lidocaine Solution Depth: in the subcutaneous layer Percentage of wound debrided: 100 Instrument Used: #15 blade and - (Omnigy ultrasound debridement instrument) Tissue Removed: fibrous, devitalized subcutaneous, biofilm, slough Severity: Fat Layer Exposed Amount of bleeding with debridement: Mild Bleeding Controlled with: Pressure Patient tolerated procedure: Patient tolerated procedure well Post-Debridement Measurements and Additional Note: Post-Debridement Measurements/Treatment - Nurse 1 - General Ulcer Assessment Start: 12/19/21 09:26 Freq: Status: Active Protocol: JAE.LOWNELDA Activity Type Activity Date Activity User E-Sign Co-Sign Detail Recorded Client Recorded Date Recorded By Document 12/19/21 09:26 RB [id number] 12/19/21 09:41 RB Document 12/26/21 08:24 RB [id number] 12/26/21 08:34 RB Document 01/02/22 09:32 RB [id number] 01/02/22 09:35 RB 12/19/21 12/26/21 01/02/22 09:26 08:24 09:32 - Today's Visit Information Type of service Follow-up Visit Follow-up Visit Follow-up Visit (Physician/SLURRY CONTROL OPERATOR HELPER (Physician/SLURRY CONTROL OPERATOR HELPER (Physician/SLURRY CONTROL OPERATOR HELPER ) ) ) Arrival Mode Ambulatory, Ambulatory, Ambulatory Crutches Crutches Transfer Assistance None None None Patient Identification Verified (Name & Yes Yes Yes ) Patient Requires Transmission-Based No No No Precautions Finger Stick Blood Sugar(mg/dl) (if 150 indicated): Blood Sugar Stated by Patient Height and Weight Body Mass Index (BMI) 28.8 28.8 28.8 BMI Classification Overweight Overweight Overweight Vital Signs Temperature (97.8 F-99.1 F) 97.3 F L 97.4 F L 97.3 F L Temperature Source Temporal Temporal Temporal Pulse Rate (60-100) 85 81 80 Pulse Location Apical Monitor Monitor Respiratory Rate (12-18) 18 18 18 Respiratory rate source Observation Observation Observation Blood Pressure (90/60-120/80) 158/73 H 139/72 H 156/79 H Blood Pressure Mean (mm Hg) 101 94 104 Source Monitor Monitor Monitor Position Semi-Fowlers Semi-Fowlers Semi-Fowlers Blood Pressure Location Left Arm Left Arm Left Arm History Since Last Visit- (Skip if this is Patient's initial visit) Have you changed medications since your No No No last visit? Any new allergies or adverse reactions No No No Had a fall/change in ADL's that may No No No increase risk of falls Signs or symptoms of abuse and/or No No No neglect since last visit Have you been in the hospital since your No No No last visit? Has dressing in place as prescribed Yes Yes Yes Has compression in place as prescribed No No No Has offloadiing in place as prescribed Yes Yes No Experienced any changes in pain level or No No No management Left Footwear Regular Shoe Regular Shoe Regular Shoe Right Footwear Surgical Shoe Surgical Shoe Surgical Shoe with pressure with pressure with pressure relief insole relief insole relief insole Pain Scale: 0-10 Numeric Is Patient Pain Free? Yes Yes Yes WC - Nurse 1 - General Ulcer Measurement Start: 12/19/21 09:26 Freq: Status: Active Protocol: Activity Type Activity Date Activity User E-Sign Co-Sign Detail Recorded Client Recorded Date Recorded By Document 12/19/21 09:26 RB [id number] 12/19/21 09:41 RB Document 12/26/21 08:24 RB [id number] 12/26/21 08:34 RB Document 01/02/22 09:32 RB [id number] 01/02/22 09:35 RB 12/19/21 12/26/21 01/02/22 09:26 08:24 09:32 Wound Center Nurse 1 #4- R FOOT HALLUX AMP SITE post -op -Combined with other wound No No No -Current Size (cm) - Length 1.8 1.5 1.5 -Current Size (cm) - Width 1.3 1.5 14.2 -Current Size (cm) - Depth 0.2 3.5 3.5 -Total Square Cm 2.34 2.25 21.30 -Tunneling No No No -Undermining/Tunneling No No No -Circular Undermining No No No -Exudate Amt Large Large Large -Exudate Type Serosanguineous Serosanguineous Serosanguineous -Wound Margin Distinct, Distinct, Outline Outline Attached Attached -Granulation Amt Medium (34-66%) Medium (34-66%) Medium (34-66%) -Granulation Quality Red [place] -Slough/Fibrin Yes Yes Yes -Necrosis Amt Small (1-33%) Small (1-33%) Medium (34-66%) -Necrotic Tissue Type Adherent Slough Adherent Slough Adherent Slough -Structure Exposed N/A N/A N/A -Texture (Ashlyn-wound Skin Appearance) Assessed Assessed Assessed -Moisture (Ashlyn-wound Skin Appearance) Assessed Assessed Assessed -Color (Ashlyn-wound Skin Appearance) Assessed Assessed Assessed -Temperature (Ashlyn-wound Skin No Abnormality No Abnormality No Abnormality Appearance) (Pt Warm) (Pt Warm) (Pt Warm) -Tenderness on Palpation (Ashlyn-wound No No No Skin Appearance) -Ulcer Cleansing Wound Cleanser Wound Cleanser Wound Cleanser -Foul Odor after Cleansing No No No -Anesthetic Used 4% Lidocaine 5% Lidocaine 5% Lidocaine Solution Gel Gel -Wound Comment(s) post op sutures intacrt sutures intact incision well on R foot approximated insicion sutures intact WC - Nurse 2 - General Ulcer CM Notes Start: 12/19/21 09:26 Freq: Status: Active Protocol: Activity Type Activity Date Activity User E-Sign Co-Sign Detail Recorded Client Recorded Date Recorded By Document 12/19/21 09:50 [id number] 12/19/21 09:53 Document 12/26/21 08:47 [id number] 12/26/21 08:51 Document 01/02/22 09:42 [id number] 01/02/22 09:50 12/19/21 12/26/21 01/02/22 09:50 08:47 09:42 Wound Center Nurse 2 #4- R FOOT HALLUX AMP SITE post -op -Time 09:53 08:47 09:48 -Correct Patient Yes Yes Yes -Correct Side, Site, Position Yes Yes Yes -Correct Procedure Yes Yes Yes -Procedure Performed Yes Yes Yes -Type of Procedure Debridement Debridement Debridement -Clinical Debridement Subcutaneous Subcutaneous Subcutaneous -Tissue Removed Subcutaneous Subcutaneous Subcutaneous -Post Debridement (cm) - Length 0.1 2.0 5.5 -Post Debridement (cm) - Width 0.1 1.4 3.0 -Post Debridement (cm) - Depth 0.1 1 3.5 -Total Square (Post) (cm) 0.01 2.80 16.50 -Area of Debridement (cm) - Length 0.1 2.0 5.5 -Area of Debridement (cm) - Width 0.1 1.4 3.0 -Total Square (Area) (cm) 0.01 2.80 16.50 -Tunneling No No No -Undermining/Tunneling No No No -Circular Undermining No No No -Wound/Ulcer Outcome Not Healed Not Healed Not Healed -Ulcer Cleansing Rinsed/ Rinsed/ Rinsed/ Irrigated with Irrigated with Irrigated with Saline Saline Saline -Foul Odor after Cleansing No No No -Bioengineered Tissue No No No -Bleeding Controlled with Pressure Pressure Pressure -Treatment Response Procedure Procedure Procedure Tolerated Well Tolerated Well Tolerated Well -Offloading Yes Yes Yes -Type of Offloading Darco Shoe - Surgical Shoe Surgical Shoe Right -Debridement - Subq, 1st 20sq cm Yes Yes Yes Pain Scale: 0-10 Numeric Is Patient Pain Free? Yes Yes Yes - Nurse 3 - General Ulcer D/C NN Start: 12/19/21 09:26 Freq: Status: Active Protocol: Activity Type Activity Date Activity User E-Sign Co-Sign Detail Recorded Client Recorded Date Recorded By Document 12/19/21 11:48 DL [id number] 12/19/21 11:51 DL Document 12/26/21 09:03 [facility] [id number] 12/26/21 09:04 [facility] Document 01/02/22 10:32 RB [id number] 01/02/22 10:33 RB 12/19/21 12/26/21 01/02/22 11:48 09:03 10:32 Wound Care Nurse 3 #4- R FOOT HALLUX AMP SITE post -op -Ulcer Cleansing Soap and Water Rinsed/ Irrigated with Saline -Foul Odor after Cleansing No -Primary Dressing Applied Aquacel AG 4x4 Aquacel AG 2x2, Aquacel AG 4x4 Other -Other Dressing betadine -Primary Dressing Covered/Secured with Dry Gauze & Dry Gauze & Dry Gauze,Dry Roll Gauze, Roll Gauze, Gauze & Roll Secured with Secured with Gauze,Secured Tape Tape,Other with Tape -Other Covering Betadine to abd incision -Aquacel AG 4x4 1 1 -Aquacel AG 2x2 1 Right -Compression Wrap Romulo Wrap -Tubular Bandage Single Layer Single Layer -Size of Tubigrip Used Size E Size E -Size E ($) 1 1 Treatment Response Procedure Procedure Procedure Tolerated Well Tolerated Well Tolerated Well Pain Scale: 0-10 Numeric Is Patient Pain Free? Yes Yes Yes WC - Visit Discharge Discharge Condition Stable Stable Stable Ambulatory Status Ambulatory, Ambulatory, Ambulatory, Crutches Crutches Crutches Transportation Private Auto Private Auto Private Auto Medication Reconcilliation completed & No provided to patient/care provider Clinical Summary of Care Provided Yes Notes: Pt refused Tubigrip today, stated only need an romulo wrap. Facility Type Home Health Assessment/Plan Assessment/Plan (1) Ulcer of right foot with necrosis of bone: CODE(S): L97.514 - Non-pressure chronic ulcer of other part of right foot with necrosis of bone (2) Type 2 diabetes mellitus with diabetic polyneuropathy: CODE(S): E11.42 - Type 2 diabetes mellitus with diabetic polyneuropathy (3) Hallux limitus of right foot: CODE(S): M20.5X1 - Other deformities of toe(s) (acquired), right foot (4) Osteomyelitis: CODE(S): M86.9 - Osteomyelitis, unspecified QUALIFIERS: Laterality: right Osteomyelitis location: foot Osteomyelitis type: other acute Qualified Code(s): M86.171 - Other acute osteomyelitis, right ankle and foot (5) Other specified peripheral vascular diseases: CODE(S): I73.89 - Other specified peripheral vascular diseases (6) Delayed wound healing: CODE(S): T14.8XXD - Other injury of unspecified body region, subsequent encounter (7) 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 He was reassured there is no erythema or purulence to the foot. Sutures intact from surgery and these were removed today with healing noted to the dorsal and plantar most aspects. The cavitation along the surgical plane still only has serosanguineous drainage and I recommended my sonics ultrasonic cavitation debridement followed by additional closure to reduce this deep space. He tolerated the debridement on setting 7 well after verbal consent was obtained. Alcohol isopropyl was used to clean the skin prior to the retention delayed closure of the open remaining site. He tolerated this well. Verbal consent was obtained. 3-0 Prolene was utilized. Overall there is a smaller wound site and deep packing is no longer recommended. Dressing: To change dressings daily with [place] Offload: Heel weightbearing with surgical shoe. To use assistive device. I recommend fully offloading the entire foot transitioning to nonweightbearing status with a walker or knee roller. This is imperative for healing. Vascular: He had prior vascular surgery intervention at [facility] in [place] and also locally with Dr. Wells. On 11-27-2021 he had additional vascular surgery procedure performed; angioplasty of anterior tibial and peroneal arteries with improved foot flow. Host factors: He has uncontrolled diabetes with a self-reported A1c of over 9%. He understands this in combination with his known vascular disease make healing difficult. He is at risk for amputation and he is made this previously clear that he will not proceed forward with this. I recommend nutritional education to optimize healing. I advised him to avoid skipping meals. Advised him to eat a whole food balanced diet that not only focuses on adequate (not excessive) protein but also nutrient dense food intake. He defers dining room hostess referral. Resources were provided as reviewed them. This was discussed again today. Infection: Prior h/o cipro for PsA R foot osteo. recently worsened and updated cx now resistance to cipro. PICC placed, 6 weeks iv zosyn, stop date 12/13/21. Surgical clearance fragment from pathology was negative. Surgical clearance fragment from micro had pseudomonas growth. Additional oral cipro was recommended by ID specialist; to follow instructions as advised. ID physician communicated this plan. Note: [employer] speech recognition coal shoveler software was used to create portions of this document. Sound-alike and misspelled words, as well as other coal shoveler errors may be contained in the documentation. 30 minutes was spent on this encounter. This included face to face and non face to face care including preparing for the visit, reviewing the history, performing the exam, counseling and providing education to the patient, family, or caregiver, ordering medications/test/ procedures if indicated as documented, communicating with other healthcare providers, documenting information in the medical record, interpreting / sharing this information when indicated as documented, and care coordination.
== END 2022-01-08 23:59 | disposition home or self-care (01) ==
LOC: WC 09:00
PROVIDERS: PCP Family Medicine; Visit Provider Podiatrist
DX: E11.621 Type 2 diabetes mellitus with foot ulcer (principal); E11.51 Type 2 diabetes mellitus with diabetic peripheral angiopathy without gangrene; T87.89 Other complications of amputation stump; L97.512 Non-pressure chronic ulcer of other part of right foot with fat layer exposed; M86.171 Other acute osteomyelitis, right ankle and foot; E11.42 Type 2 diabetes mellitus with diabetic polyneuropathy; Y83.5 Amputation of limb(s) as the cause of abnormal reaction of the patient, or of later complication, without mention of misadventure at the time of the procedure; M20.5X1 Other deformities of toe(s) (acquired), right foot
CPT/HCPCS: 11042

== ENCOUNTER 2022-02-06 08:45 | Outpatient (RCR) | payer BC, SELFPAY ==
[2022-01-09 00:24] VITALS: BP 156/79; PULSE 80; RESP 18; TEMP 36.3; BMI 28.8
[2022-01-09 09:06] VITALS: BP 140/56; PULSE 76; RESP 18; TEMP 36.3; BMI 28.8
--- NOTE | 2022-01-09 09:09 | WC ---
sutures intact on right foot incision
--- NOTE | 2022-01-09 09:31 | PCM.WC.PN ---
History of Present Illness Date of Service: 01/09/22 Chief Complaint: right foot ulcer / recent first ray resection surgery History of Wound: This 62-year-old diabetic male was seen in clinic today. He underwent amputation of the right hallux at the first metatarsophalangeal joint on 09/25/2021. He now continues on oral antibiotics in the outpatient setting after he completed a course of IV antibiotics. He denies any nausea, vomiting, fever, chills, or other constitutional symptoms. Patient has a history of anxiety and depression secondary to dealing with his chronic hallux ulceration for the last year. He has completed a procedure with Dr. Wells for vascular surgery intervention on 11-27-2021; angioplasty of anterior tibial and peroneal arteries with improved foot flow. He is now status post first ray resection/amputation that was performed on 12-11-2021 at [facility]. He has tried to keep pressure off this site. His sutures are intact from his updated additional delayed closure and misonix debridement performed last week. Progress of Wound: improving Objective Data Objective Data Vital Signs: Vital Signs Temp Pulse Resp BP 97.3 F L 76 18 140/56 H 01/09/22 09:06 01/09/22 09:06 01/09/22 09:06 01/09/22 09:06 Weight: 86.183 kg Body Mass Index (BMI) 28.8 Physical Exam Const alert, oriented x3 and no apparent distress General Appearance: cooperative and comfortable HEENT normocephalic Lymph Lymphatic: no lymphedema noted Extremity Peripheral Pulses: Negative for posterior tibial pulses present or dorsalis pedis pulses present Skin Wound Narrative: first ray resection site is stable with central updated sutures intact. the dorsal most aspect remains closed. no central tissue plug noted. no purulence, odor , erythema, streaking or eschar or necrosis noted. no bogginess or fluctuance on palpation to the surgical site. compartments remain soft to palpate. hematogenous drainage only noted and reduced ulcer size and drainage is appreciated Neuro oriented x3 and moves all extremities Debridement Note Debridement Note Wound debrided: right foot Wound Grade/Stage: 3 Type of Debridement: Excisional debridement Anesthesia Used: 4% Lidocaine Solution Depth: in the subcutaneous layer Percentage of wound debrided: 100 Instrument Used: #15 blade Tissue Removed: fibrous, devitalized subcutaneous, biofilm, slough Severity: Fat Layer Exposed Amount of bleeding with debridement: Mild Bleeding Controlled with: Pressure Patient tolerated procedure: Patient tolerated procedure well Post-Debridement Measurements and Additional Note: Post-Debridement Measurements/Treatment JAE - Nurse 1 - General Ulcer Assessment Start: 01/09/22 09:06 Freq: Status: Active Protocol: REHAN Activity Type Activity Date Activity User E-Sign Co-Sign Detail Recorded Client Recorded Date Recorded By Document 01/09/22 09:06 JONAH [id number] 01/09/22 09:09 RB 01/09/22 09:06 WC - Today's Visit Information Type of service Follow-up Visit (Physician/OIL RIG ROUGHNECK ) Arrival Mode Ambulatory Transfer Assistance None Patient Identification Verified (Name & Yes ) Patient Requires Transmission-Based No Precautions Height and Weight Body Mass Index (BMI) 28.8 BMI Classification Overweight Vital Signs Temperature (97.8 F-99.1 F) 97.3 F L Temperature Source Temporal Pulse Rate (60-100) 76 Pulse Location Monitor Respiratory Rate (12-18) 18 Respiratory rate source Observation Blood Pressure (90/60-120/80) 140/56 H Blood Pressure Mean (mm Hg) 84 History Since Last Visit- (Skip if this is Patient's initial visit) Have you changed medications since your No last visit? Any new allergies or adverse reactions No Had a fall/change in ADL's that may No increase risk of falls Signs or symptoms of abuse and/or No neglect since last visit Have you been in the hospital since your No last visit? Has dressing in place as prescribed Yes Has compression in place as prescribed Yes Has offloadiing in place as prescribed No Experienced any changes in pain level or No management Left Footwear Regular Shoe Right Footwear Surgical Shoe with pressure relief insole Pain Scale: 0-10 Numeric Is Patient Pain Free? Yes Jocelyn Nurse 1 - General Ulcer Measurement Start: 01/09/22 09:06 Freq: Status: Active Protocol: Activity Type Activity Date Activity User E-Sign Co-Sign Detail Recorded Client Recorded Date Recorded By Document 01/09/22 09:06 JONAH [id number] 01/09/22 09:09 RB 01/09/22 09:06 Wound Center Nurse 1 #4- R FOOT HALLUX AMP SITE post -op -Combined with other wound No -Current Size (cm) - Length 0.1 -Current Size (cm) - Width 0.1 -Current Size (cm) - Depth 0.1 -Total Square Cm 0.01 -Photo Taken Yes -Tunneling No -Undermining/Tunneling No -Circular Undermining No -Exudate Amt Medium -Exudate Type Serosanguineous -Wound Margin Distinct, Outline Attached -Granulation Amt Medium (34-66%) -Granulation Quality [place] -Slough/Fibrin Yes -Necrosis Amt Medium (34-66%) -Necrotic Tissue Type Adherent Slough -Structure Exposed N/A -Texture (Ashlyn-wound Skin Appearance) Assessed, Localized Edema -Moisture (Ashlyn-wound Skin Appearance) Assessed -Color (Ashlyn-wound Skin Appearance) Assessed -Temperature (Ashlyn-wound Skin No Abnormality Appearance) (Pt Warm) -Tenderness on Palpation (Ashlyn-wound No Skin Appearance) -Ulcer Cleansing Wound Cleanser -Foul Odor after Cleansing No -Anesthetic Used 5% Lidocaine Gel 01/09/22 09:09 Wound Center by Jaky Orr sutures intact on right foot incision Initialized on 01/09/22 09:09 - END OF NOTE WC - Nurse 2 - General Ulcer CM Notes Start: 01/09/22 09:06 Freq: Status: Active Protocol: Activity Type Activity Date Activity User E-Sign Co-Sign Detail Recorded Client Recorded Date Recorded By Document 01/09/22 09:29 NANETTE [id number] 01/09/22 09:30 NANETTE 01/09/22 09:29 Wound Center Nurse 2 -Time 09:29 -Correct Patient Yes -Correct Side, Site, Position Yes -Correct Procedure Yes -Procedure Performed Yes -Type of Procedure Debridement -Clinical Debridement Subcutaneous -Tissue Removed Subcutaneous -Post Debridement (cm) - Length 2.0 -Post Debridement (cm) - Width 0.5 -Post Debridement (cm) - Depth 0.1 -Total Square (Post) (cm) 1.00 -Area of Debridement (cm) - Length 2.0 -Area of Debridement (cm) - Width 0.5 -Total Square (Area) (cm) 1.00 -Tunneling No -Undermining/Tunneling No -Circular Undermining No -Wound/Ulcer Outcome Not Healed -Ulcer Cleansing Rinsed/ Irrigated with Saline -Foul Odor after Cleansing No -Bioengineered Tissue No -Bleeding Controlled with Pressure -Treatment Response Procedure Tolerated Well -Offloading Yes -Type of Offloading Surgical Shoe -Debridement - Subq, 1st 20sq cm Yes Pain Scale: 0-10 Numeric Is Patient Pain Free? Yes Assessment/Plan Assessment/Plan (1) Ulcer of right foot with necrosis of bone: CODE(S): L97.514 - Non-pressure chronic ulcer of other part of right foot with necrosis of bone (2) Type 2 diabetes mellitus with diabetic polyneuropathy: CODE(S): E11.42 - Type 2 diabetes mellitus with diabetic polyneuropathy (3) Hallux limitus of right foot: CODE(S): M20.5X1 - Other deformities of toe(s) (acquired), right foot (4) Osteomyelitis: CODE(S): M86.9 - Osteomyelitis, unspecified QUALIFIERS: Osteomyelitis type: other acute Osteomyelitis location: foot Laterality: right Qualified Code(s): M86.171 - Other acute osteomyelitis, right ankle and foot (5) Other specified peripheral vascular diseases: CODE(S): I73.89 - Other specified peripheral vascular diseases (6) Delayed wound healing: CODE(S): T14.8XXD - Other injury of unspecified body region, subsequent encounter (7) 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 He was reassured there is no erythema or purulence to the foot. Sutures intact from additional closure performed last week. Debridement performed to central most distal aspect as described in the nursing documentation. He tolerated this well. Dressing: To change dressings daily with Aquacel Ag Offload: Heel weightbearing with surgical shoe. To use assistive device. I recommend fully offloading the entire foot transitioning to nonweightbearing status with a walker or knee roller. This is imperative for healing. Vascular: He had prior vascular surgery intervention at [facility] in [place] and also locally with Dr. Wells. On 11-27-2021 he had additional vascular surgery procedure performed; angioplasty of anterior tibial and peroneal arteries with improved foot flow. Host factors: He has uncontrolled diabetes with a self-reported A1c of over 9%. He understands this in combination with his known vascular disease make healing difficult. He is at risk for amputation and he is made this previously clear that he will not proceed forward with this. I recommend nutritional education to optimize healing. I advised him to avoid skipping meals. Advised him to eat a whole food balanced diet that not only focuses on adequate (not excessive) protein but also nutrient dense food intake. He defers language translator referral. Resources were provided as reviewed them. This was discussed again today. Infection: Prior h/o cipro for PsA R foot osteo. recently worsened and updated cx now resistance to cipro. PICC placed, 6 weeks iv zosyn, stop date 12/13/21. Surgical clearance fragment from pathology was negative. Surgical clearance fragment from micro had pseudomonas growth. Additional oral cipro was recommended by ID specialist; to follow instructions as advised. ID physician communicated this plan. Note: [employer] speech recognition cotton inspector software was used to create portions of this document. Sound-alike and misspelled words, as well as other cotton inspector errors may be contained in the documentation.
[2022-01-16 09:11] VITALS: BP 140/76; PULSE 74; RESP 18; TEMP 36.3; BMI 28.8
--- NOTE | 2022-01-16 15:29 | PCM.WC.PN ---
History of Present Illness Date of Service: 01/16/22 Chief Complaint: right foot ulcer / recent first ray resection surgery History of Wound: This 62-year-old diabetic male was seen in clinic today. He underwent amputation of the right hallux at the first metatarsophalangeal joint on 09/25/2021. He now continues on oral antibiotics in the outpatient setting after he completed a course of IV antibiotics. He denies any nausea, vomiting, fever, chills, or other constitutional symptoms. Patient has a history of anxiety and depression secondary to dealing with his chronic hallux ulceration for the last year. He has completed a procedure with Dr. Wells for vascular surgery intervention on 11-27-2021; angioplasty of anterior tibial and peroneal arteries with improved foot flow. He is now status post first ray resection/amputation that was performed on 12-11-2021 at [facility]. He has tried to keep pressure off this site. His sutures are intact from his updated additional delayed closure. He has reduced drainage. Progress of Wound: improving Objective Data Objective Data Vital Signs: Vital Signs Temp Pulse Resp BP 97.3 F L 74 18 140/76 H 01/16/22 09:11 01/16/22 09:11 01/16/22 09:11 01/16/22 09:11 Weight: 86.183 kg Body Mass Index (BMI) 28.8 Physical Exam Const alert, oriented x3 and no apparent distress General Appearance: cooperative and comfortable HEENT normocephalic Lymph Lymphatic: no lymphedema noted Extremity Peripheral Pulses: Negative for posterior tibial pulses present or dorsalis pedis pulses present Skin Wound Narrative: first ray resection site is stable with central updated sutures intact. the dorsal most aspect remains closed. no central tissue plug noted. no purulence, odor , erythema, streaking or eschar or necrosis noted. no bogginess or fluctuance on palpation to the surgical site. compartments remain soft to palpate. hematogenous drainage only noted and reduced ulcer size and drainage is appreciated Neuro oriented x3 and moves all extremities Debridement Note Debridement Note Wound debrided: right foot Wound Grade/Stage: 3 Type of Debridement: Excisional debridement Anesthesia Used: 4% Lidocaine Solution Depth: in the subcutaneous layer Percentage of wound debrided: 100 Instrument Used: #15 blade Tissue Removed: fibrous, devitalized subcutaneous, biofilm, slough Severity: Fat Layer Exposed Amount of bleeding with debridement: Mild Bleeding Controlled with: Pressure Patient tolerated procedure: Patient tolerated procedure well Post-Debridement Measurements and Additional Note: Post-Debridement Measurements/Treatment JAE - Nurse 1 - General Ulcer Assessment Start: 01/09/22 09:06 Freq: Status: Active Protocol: REHAN Activity Type Activity Date Activity User E-Sign Co-Sign Detail Recorded Client Recorded Date Recorded By Document 01/09/22 09:06 RB [id number] 01/09/22 09:09 RB Document 01/16/22 09:11 DL [id number] 01/16/22 09:17 DL 01/09/22 01/16/22 09:06 09:11 WC - Today's Visit Information Type of service Follow-up Visit Follow-up Visit (Physician/TRANSITIONAL KINDERGARTEN TEACHER (Physician/TRANSITIONAL KINDERGARTEN TEACHER ) ) Arrival Mode Ambulatory Ambulatory, Crutches Transfer Assistance None None Patient Identification Verified (Name & Yes Yes ) Patient Requires Transmission-Based No No Precautions Safety Precautions Fall Prevention Height and Weight Body Mass Index (BMI) 28.8 28.8 BMI Classification Overweight Overweight Vital Signs Temperature (97.8 F-99.1 F) 97.3 F L 97.3 F L Temperature Source Temporal Temporal Pulse Rate (60-100) 76 74 Pulse Location Monitor Monitor Respiratory Rate (12-18) 18 18 Respiratory rate source Observation Observation Blood Pressure (90/60-120/80) 140/56 H 140/76 H Blood Pressure Mean (mm Hg) 84 97 Source Monitor History Since Last Visit- (Skip if this is Patient's initial visit) Have you changed medications since your No No last visit? Any new allergies or adverse reactions No No Had a fall/change in ADL's that may No No increase risk of falls Signs or symptoms of abuse and/or No No neglect since last visit Have you been in the hospital since your No No last visit? Has dressing in place as prescribed Yes Yes Has compression in place as prescribed Yes No Has offloadiing in place as prescribed No Yes Experienced any changes in pain level or No No management Left Footwear Regular Shoe Right Footwear Surgical Shoe Surgical Shoe with pressure with pressure relief insole relief insole Pain Scale: 0-10 Numeric Is Patient Pain Free? Yes Yes JAE Banks Nurse 1 - General Ulcer Measurement Start: 01/09/22 09:06 Freq: Status: Active Protocol: Activity Type Activity Date Activity User E-Sign Co-Sign Detail Recorded Client Recorded Date Recorded By Document 01/09/22 09:06 RB [id number] 01/09/22 09:09 RB Document 01/16/22 09:11 DL [id number] 01/16/22 09:17 DL Edit Result 01/16/22 09:11 DL (1) [id number] 01/16/22 09:18 DL (1) #4- R FOOT HALLUX AMP SITE post -op - Current Size (cm) - Width 0.1 => 0.7 - Total Square Cm 0.1 => 0.7 01/09/22 01/16/22 09:06 09:11 Wound Center Nurse 1 #4- R FOOT HALLUX AMP SITE post -op -Combined with other wound No -Current Size (cm) - Length 0.1 1 -Current Size (cm) - Width 0.1 0.7 -Current Size (cm) - Depth 0.1 0.1 -Total Square Cm 0.01 0.7 -Photo Taken Yes No -Tunneling No -Undermining/Tunneling No -Circular Undermining No -Exudate Amt Medium Small -Exudate Type Serosanguineous Serosanguineous -Wound Margin Distinct, Distinct, Outline Outline Attached Attached -Granulation Amt Medium (34-66%) Small (1-33%) -Granulation Quality [place] -Slough/Fibrin Yes -Necrosis Amt Medium (34-66%) Large (67-100%) -Necrotic Tissue Type Adherent Slough Adherent Slough -Structure Exposed N/A N/A -Texture (Ashlyn-wound Skin Appearance) Assessed, Localized Edema Localized Edema ,Scarring -Moisture (Ashlyn-wound Skin Appearance) Assessed Maceration -Color (Ashlyn-wound Skin Appearance) Assessed No Abnormality -Temperature (Ashlyn-wound Skin No Abnormality No Abnormality Appearance) (Pt Warm) (Pt Warm) -Tenderness on Palpation (Ashlyn-wound No No Skin Appearance) -Ulcer Cleansing Wound Cleanser Rinsed/ Irrigated with Saline -Foul Odor after Cleansing No Yes, Due to Product Use -Anesthetic Used 5% Lidocaine Gel Right Calf (cm) 34.3 Right Ankle (cm) 19.6 01/09/22 09:09 Wound Center by Dominga,Jaky sutures intact on right foot incision Initialized on 01/09/22 09:09 - END OF NOTE JAE - Nurse 2 - General Ulcer CM Notes Start: 01/09/22 09:06 Freq: Status: Active Protocol: Activity Type Activity Date Activity User E-Sign Co-Sign Detail Recorded Client Recorded Date Recorded By Document 01/09/22 09:29 [id number] 01/09/22 09:30 Document 01/16/22 09:32 [id number] 01/16/22 09:37 JF 01/09/22 01/16/22 09:29 09:32 Wound Center Nurse 2 #4- R FOOT HALLUX AMP SITE post -op -Time 09:29 09:33 -Correct Patient Yes Yes -Correct Side, Site, Position Yes Yes -Correct Procedure Yes Yes -Procedure Performed Yes Yes -Type of Procedure Debridement Debridement -Clinical Debridement Subcutaneous Subcutaneous -Tissue Removed Subcutaneous Subcutaneous -Post Debridement (cm) - Length 2.0 1.0 -Post Debridement (cm) - Width 0.5 0.8 -Post Debridement (cm) - Depth 0.1 0.2 -Total Square (Post) (cm) 1.00 0.80 -Area of Debridement (cm) - Length 2.0 1 -Area of Debridement (cm) - Width 0.5 0.8 -Total Square (Area) (cm) 1.00 0.8 -Tunneling No No -Undermining/Tunneling No No -Circular Undermining No No -Wound/Ulcer Outcome Not Healed Not Healed -Ulcer Cleansing Rinsed/ Rinsed/ Irrigated with Irrigated with Saline Saline -Foul Odor after Cleansing No No -Bioengineered Tissue No No -Bleeding Controlled with Pressure Pressure -Treatment Response Procedure Procedure Tolerated Well Tolerated Well -Offloading Yes Yes -Type of Offloading Surgical Shoe Surgical Shoe -Debridement - Subq, 1st 20sq cm Yes Yes Pain Scale: 0-10 Numeric Is Patient Pain Free? Yes Yes JAE - Nurse 3 - General Ulcer D/C NN Start: 01/09/22 09:06 Freq: Status: Active Protocol: Activity Type Activity Date Activity User E-Sign Co-Sign Detail Recorded Client Recorded Date Recorded By Document 01/09/22 09:36 [facility] Desktop 01/09/22 09:38 [facility] Document 01/16/22 09:50 DL [id number] 01/16/22 09:53 DL 01/09/22 01/16/22 09:36 09:50 Wound Care Nurse 3 #4- R FOOT HALLUX AMP SITE post -op -Ulcer Cleansing Rinsed/ Rinsed/ Irrigated with Irrigated with Saline Saline -Foul Odor after Cleansing No No -Primary Dressing Applied Aquacel AG 4x4 Aquacel AG 2x2 -Other Dressing drsg per rb rn -Primary Dressing Covered/Secured with Dry Gauze & Dry Gauze & Roll Gauze, Roll Gauze, Secured with Secured with Tape,Other Tape -Other Covering abd -Aquacel AG 4x4 1 -Aquacel AG 2x2 1 Right -Tubular Bandage Single Layer Single Layer -Size of Tubigrip Used Size D Size D -Size D ($) 1 1 Treatment Response Procedure Procedure Tolerated Well Tolerated Well Pain Scale: 0-10 Numeric Is Patient Pain Free? Yes Yes WC - Visit Discharge Discharge Condition Stable Stable Ambulatory Status Ambulatory, Ambulatory, Crutches Crutches Transportation Private Auto Private Auto Facility Type Home Health Orders Sent Yes Assessment/Plan Assessment/Plan (1) Ulcer of right foot with necrosis of bone: CODE(S): L97.514 - Non-pressure chronic ulcer of other part of right foot with necrosis of bone (2) Type 2 diabetes mellitus with diabetic polyneuropathy: CODE(S): E11.42 - Type 2 diabetes mellitus with diabetic polyneuropathy (3) Hallux limitus of right foot: CODE(S): M20.5X1 - Other deformities of toe(s) (acquired), right foot (4) Osteomyelitis: CODE(S): M86.9 - Osteomyelitis, unspecified QUALIFIERS: Laterality: right Osteomyelitis location: foot Osteomyelitis type: other acute Qualified Code(s): M86.171 - Other acute osteomyelitis, right ankle and foot (5) Other specified peripheral vascular diseases: CODE(S): I73.89 - Other specified peripheral vascular diseases (6) Delayed wound healing: CODE(S): T14.8XXD - Other injury of unspecified body region, subsequent encounter (7) 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 He was reassured there is no erythema or purulence to the foot. Sutures intact from additional closure performed last week. Debridement performed to central most distal aspect as described in the nursing documentation. He tolerated this well. Dressing: To change dressings daily with Aquacel Ag Offload: Heel weightbearing with surgical shoe. To use assistive device. I recommend fully offloading the entire foot transitioning to nonweightbearing status with a walker or knee roller. This is imperative for healing. Vascular: He had prior vascular surgery intervention at [facility] in [place] and also locally with Dr. Wells. On 11-27-2021 he had additional vascular surgery procedure performed; angioplasty of anterior tibial and peroneal arteries with improved foot flow. Host factors: He has uncontrolled diabetes with a self-reported A1c of over 9%. He understands this in combination with his known vascular disease make healing difficult. He is at risk for amputation and he is made this previously clear that he will not proceed forward with this. I recommend nutritional education to optimize healing. I advised him to avoid skipping meals. Advised him to eat a whole food balanced diet that not only focuses on adequate (not excessive) protein but also nutrient dense food intake. He defers cyber operator referral. Resources were provided as reviewed them. This was discussed again today. Infection: Prior h/o cipro for PsA R foot osteo. recently worsened and updated cx now resistance to cipro. PICC placed, 6 weeks iv zosyn, stop date 12/13/21. Surgical clearance fragment from pathology was negative. Surgical clearance fragment from micro had pseudomonas growth. Additional oral cipro was recommended by ID specialist; to follow instructions as advised. ID physician communicated this plan. Note: [employer] speech recognition recreation programmer software was used to create portions of this document. Sound-alike and misspelled words, as well as other recreation programmer errors may be contained in the documentation.
[2022-01-23 09:56] VITALS: BP 131/60; PULSE 82; RESP 20; TEMP 36.7; BMI 28.8
--- NOTE | 2022-01-23 10:36 | PN.PCM_ITS ---
History of Present Illness Date of Service: 01/23/22 Chief Complaint: right foot ulcer / recent first ray resection surgery History of Wound: This 62-year-old diabetic male was seen in clinic today. He underwent amputation of the right hallux at the first metatarsophalangeal joint on 09/25/2021. He now continues on oral antibiotics in the outpatient setting after he completed a course of IV antibiotics. He denies any nausea, vomiting, fever, chills, or other constitutional symptoms. Patient has a history of anxiety and depression secondary to dealing with his chronic hallux ulceration for the last year. He has completed a procedure with Dr. Wells for vascular surgery intervention on 11-27-2021; angioplasty of anterior tibial and peroneal arteries with improved foot flow. He is now status post first ray resection/amputation that was performed on 12-11-2021 at [facility]. He has tried to keep pressure off this site. He has reduced drainage. He wears a surgical shoe and is unable to do a total contact cast because he has to drive himself. Progress of Wound: improving Objective Data Objective Data Vital Signs: Vital Signs Temp Pulse Resp BP 98.1 F 82 20 H 131/60 H 01/23/22 09:56 01/23/22 09:56 01/23/22 09:56 01/23/22 09:56 Weight: 86.183 kg Body Mass Index (BMI) 28.8 Physical Exam Const alert, oriented x3 and no apparent distress General Appearance: cooperative and comfortable HEENT normocephalic Lymph Lymphatic: no lymphedema noted Extremity Peripheral Pulses: Negative for posterior tibial pulses present or dorsalis pedis pulses present Skin Wound Narrative: first ray resection site is stable with central updated sutures intact. the dorsal most aspect remains closed. no central tissue plug noted. no purulence, odor , erythema, streaking or eschar or necrosis noted. no bogginess or fluctuance on palpation to the surgical site. compartments remain soft to palpate. hematogenous drainage only noted and reduced ulcer size and drainage is appreciated Neuro oriented x3 and moves all extremities Debridement Note Debridement Note Wound debrided: right foot Wound Grade/Stage: 3 Type of Debridement: Excisional debridement Anesthesia Used: 4% Lidocaine Solution Depth: in the subcutaneous layer Percentage of wound debrided: 100 Instrument Used: #15 blade Tissue Removed: fibrous, devitalized subcutaneous, biofilm, slough Severity: Fat Layer Exposed Amount of bleeding with debridement: Mild Bleeding Controlled with: Pressure Patient tolerated procedure: Patient tolerated procedure well Post-Debridement Measurements and Additional Note: Post-Debridement Measurements/Treatment WC - Nurse 1 - General Ulcer Assessment Start: 01/09/22 09:06 Freq: Status: Active Protocol: RAIMUNDOT Activity Type Activity Date Activity User E-sign Co-sign Detail Recorded Client Recorded Date Recorded By Document 01/09/22 09:06 RB [id number] 01/09/22 09:09 RB Document 01/16/22 09:11 DL [id number] 01/16/22 09:17 DL Document 01/23/22 09:56 DL [id number] 01/23/22 10:02 DL 01/09/22 01/16/22 01/23/22 09:06 09:11 09:56 - Today's Visit Information Type of service Follow-up Visit Follow-up Visit Follow-up Visit (Physician/WATER PURIFIER OPERATOR (Physician/WATER PURIFIER OPERATOR (Physician/WATER PURIFIER OPERATOR ) ) ) Arrival Mode Ambulatory Ambulatory, Ambulatory, Crutches Crutches Transfer Assistance None None None Patient Identification Verified (Name & Yes Yes Yes ) Patient Requires Transmission-Based No No No Precautions Safety Precautions Fall Prevention Height and Weight Body Mass Index (BMI) 28.8 28.8 28.8 BMI Classification Overweight Overweight Overweight Vital Signs Temperature (97.8 F-99.1 F) 97.3 F L 97.3 F L 98.1 F Temperature Source Temporal Temporal Temporal Pulse Rate (60-100) 76 74 82 Pulse Location Monitor Monitor Monitor Respiratory Rate (12-18) 18 18 20 H Respiratory rate source Observation Observation Observation Blood Pressure (90/60-120/80) 140/56 H 140/76 H 131/60 H Blood Pressure Mean (mm Hg) 84 97 83 Source Monitor Monitor History Since Last Visit- (Skip if this is Patient's initial visit) Have you changed medications since your No No No last visit? Any new allergies or adverse reactions No No No Had a fall/change in ADL's that may No No No increase risk of falls Signs or symptoms of abuse and/or No No No neglect since last visit Have you been in the hospital since your No No No last visit? Has dressing in place as prescribed Yes Yes Yes Has compression in place as prescribed Yes No Yes Has offloadiing in place as prescribed No Yes Yes Experienced any changes in pain level or No No No management Left Footwear Regular Shoe Right Footwear Surgical Shoe Surgical Shoe Surgical Shoe with pressure with pressure with pressure relief insole relief insole relief insole Pain Scale: 0-10 Numeric Is Patient Pain Free? Yes Yes Yes WC - Nurse 1 - General Ulcer Measurement Start: 01/09/22 09:06 Freq: Status: Active Protocol: Activity Type Activity Date Activity User E-sign Co-sign Detail Recorded Client Recorded Date Recorded By Document 01/09/22 09:06 RB [id number] 01/09/22 09:09 RB Document 01/16/22 09:11 DL [id number] 01/16/22 09:17 DL Edit Result 01/16/22 09:11 DL (1) [id number] 01/16/22 09:18 DL Document 01/23/22 09:56 DL [id number] 01/23/22 10:02 DL (1) #4- R FOOT HALLUX AMP SITE post -op - Current Size (cm) - Width 0.1 => 0.7 - Total Square Cm 0.1 => 0.7 01/09/22 01/16/22 01/23/22 09:06 09:11 09:56 Wound Center Nurse 1 #4- R FOOT HALLUX AMP SITE post -op -Combined with other wound No -Current Size (cm) - Length 0.1 1 0.5 -Current Size (cm) - Width 0.1 0.7 0.8 -Current Size (cm) - Depth 0.1 0.1 0.2 -Total Square Cm 0.01 0.7 0.40 -Photo Taken Yes No No -Tunneling No -Undermining/Tunneling No -Circular Undermining No -Exudate Amt Medium Small Small -Exudate Type Serosanguineous Serosanguineous Serosanguineous -Wound Margin Distinct, Distinct, Distinct, Outline Outline Outline Attached Attached Attached -Granulation Amt Medium (34-66%) Small (1-33%) Medium (34-66%) -Granulation Quality [place] [employer] [employer] [place] [employer] -Slough/Fibrin Yes -Necrosis Amt Medium (34-66%) Large (67-100%) Medium (34-66%) -Necrotic Tissue Type Adherent Slough Adherent Slough Adherent Slough -Structure Exposed N/A N/A N/A -Texture (Ashlyn-wound Skin Appearance) Assessed, Localized Edema Scarring Localized Edema ,Scarring -Moisture (Ashlyn-wound Skin Appearance) Assessed Maceration Maceration -Color (Ashlyn-wound Skin Appearance) Assessed No Abnormality No Abnormality -Temperature (Ashlyn-wound Skin No Abnormality No Abnormality No Abnormality Appearance) (Pt Warm) (Pt Warm) (Pt Warm) -Tenderness on Palpation (Ashlyn-wound No No No Skin Appearance) -Ulcer Cleansing Wound Cleanser Rinsed/ Soap and Water Irrigated with Saline -Foul Odor after Cleansing No Yes, Due to No Product Use -Anesthetic Used 5% Lidocaine 5% Lidocaine Gel Gel Right Calf (cm) 34.3 Right Ankle (cm) 19.6 01/09/22 09:09 Wound Center by Jaky Orr sutures intact on right foot incision Initialized on 01/09/22 09:09 - END OF NOTE WC - Nurse 2 - General Ulcer CM Notes Start: 01/09/22 09:06 Freq: Status: Active Protocol: Activity Type Activity Date Activity User E-sign Co-sign Detail Recorded Client Recorded Date Recorded By Document 01/09/22 09:29 [id number] 01/09/22 09:30 Document 01/16/22 09:32 [id number] 01/16/22 09:37 Document 01/23/22 10:08 [id number] 01/23/22 10:13 01/09/22 01/16/22 01/23/22 09:29 09:32 10:08 Wound Center Nurse 2 #4- R FOOT HALLUX AMP SITE post -op -Time 09:29 09:33 10:09 -Correct Patient Yes Yes Yes -Correct Side, Site, Position Yes Yes Yes -Correct Procedure Yes Yes Yes -Procedure Performed Yes Yes Yes -Type of Procedure Debridement Debridement Debridement -Clinical Debridement Subcutaneous Subcutaneous Subcutaneous -Tissue Removed Subcutaneous Subcutaneous Subcutaneous -Post Debridement (cm) - Length 2.0 1.0 1.4 -Post Debridement (cm) - Width 0.5 0.8 4.0 -Post Debridement (cm) - Depth 0.1 0.2 0.2 -Total Square (Post) (cm) 1.00 0.80 5.60 -Area of Debridement (cm) - Length 2.0 1 1.4 -Area of Debridement (cm) - Width 0.5 0.8 4.0 -Total Square (Area) (cm) 1.00 0.8 5.60 -Tunneling No No No -Undermining/Tunneling No No No -Circular Undermining No No No -Wound/Ulcer Outcome Not Healed Not Healed Not Healed -Ulcer Cleansing Rinsed/ Rinsed/ Rinsed/ Irrigated with Irrigated with Irrigated with Saline Saline Saline -Foul Odor after Cleansing No No No -Bioengineered Tissue No No No -Bleeding Controlled with Pressure Pressure Pressure -Treatment Response Procedure Procedure Procedure Tolerated Well Tolerated Well Tolerated Well -Offloading Yes Yes Yes -Type of Offloading Surgical Shoe Surgical Shoe Surgical Shoe -Debridement - Subq, 1st 20sq cm Yes Yes Yes Pain Scale: 0-10 Numeric Is Patient Pain Free? Yes Yes Yes - Nurse 3 - General Ulcer D/C NN Start: 01/09/22 09:06 Freq: Status: Active Protocol: Activity Type Activity Date Activity User E-sign Co-sign Detail Recorded Client Recorded Date Recorded By Document 01/09/22 09:36 [facility] Desktop 01/09/22 09:38 [facility] Document 01/16/22 09:50 DL [id number] 01/16/22 09:53 DL Document 01/23/22 10:29 [facility] [id number] 01/23/22 10:30 [facility] 01/09/22 01/16/22 01/23/22 09:36 09:50 10:29 Wound Care Nurse 3 #4- R FOOT HALLUX AMP SITE post -op -Ulcer Cleansing Rinsed/ Rinsed/ Rinsed/ Irrigated with Irrigated with Irrigated with Saline Saline Saline -Foul Odor after Cleansing No No No -Primary Dressing Applied Aquacel AG 4x4 Aquacel AG 2x2 Promogran Olivia Matter -Other Dressing drsg per rb rn -Primary Dressing Covered/Secured with Dry Gauze & Dry Gauze & Dry Gauze & Roll Gauze, Roll Gauze, Roll Gauze, Secured with Secured with Secured with Tape,Other Tape Tape,Other -Other Covering abd abd -Aquacel AG 4x4 1 -Aquacel AG 2x2 1 -Promogran Olivia Matter 1 Right -Tubular Bandage Single Layer Single Layer -Size of Tubigrip Used Size D Size D -Size D ($) 1 1 -Other applied pts own double layer tubi Treatment Response Procedure Procedure Procedure Tolerated Well Tolerated Well Tolerated Well Pain Scale: 0-10 Numeric Is Patient Pain Free? Yes Yes Yes WC - Visit Discharge Discharge Condition Stable Stable Stable Ambulatory Status Ambulatory, Ambulatory, Ambulatory, Crutches Crutches Crutches Transportation Private Auto Private Auto Private Auto Facility Type Home Health Home Health Orders Sent Yes Assessment/Plan Assessment/Plan (1) Ulcer of right foot with necrosis of bone: CODE(S): L97.514 - Non-pressure chronic ulcer of other part of right foot with necrosis of bone (2) Type 2 diabetes mellitus with diabetic polyneuropathy: CODE(S): E11.42 - Type 2 diabetes mellitus with diabetic polyneuropathy (3) Hallux limitus of right foot: CODE(S): M20.5X1 - Other deformities of toe(s) (acquired), right foot (4) Osteomyelitis: CODE(S): M86.9 - Osteomyelitis, unspecified QUALIFIERS: Osteomyelitis type: other acute Osteomyelitis location: foot Laterality: right Qualified Code(s): M86.171 - Other acute osteomyelitis, right ankle and foot (5) Other specified peripheral vascular diseases: CODE(S): I73.89 - Other specified peripheral vascular diseases (6) Delayed wound healing: CODE(S): T14.8XXD - Other injury of unspecified body region, subsequent encounter (7) 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 He was reassured there is no erythema or purulence to the foot. Sutures intact from additional closure performed last week. Debridement performed to central most distal aspect as described in the nursing documentation. He tolerated this well. Dressing: To change dressings daily with Olivia. Advance wound healing options: I recommend advancing healing product epi cord and later epi fix when this wound is more superficial to optimize healing. The indications and benefits, anticipated management and healing process was reviewed. This is medically necessary for limb salvage and he is at risk for further amputations, infections, delayed healing and even . Prior authorization will be initiated. Offload: Heel weightbearing with surgical shoe. To use assistive device. I recommend fully offloading the entire foot transitioning to nonweightbearing status with a walker or knee roller. This is imperative for healing. It is noted he is unable to proceed forward with the recommended total contact cast. The Vascular: He had prior vascular surgery intervention at [facility] in [place] and also locally with Dr. Wells. On 11-27-2021 he had additional vascular surgery procedure performed; angioplasty of anterior tibial and peroneal arteries with improved foot flow. Host factors: He has uncontrolled diabetes with a self-reported A1c of over 9%. He understands this in combination with his known vascular disease make healing difficult. He is at risk for amputation and he is made this previously clear that he will not proceed forward with this. I recommend nutritional education to optimize healing. I advised him to avoid skipping meals. Advised him to eat a whole food balanced diet that not only focuses on adequate (not excessive) protein but also nutrient dense food intake. He defers beach expert referral. Resources were provided as reviewed them. This was discussed again today. Infection: Prior h/o cipro for PsA R foot osteo. recently worsened and updated cx now resistance to cipro. PICC placed, 6 weeks iv zosyn, stop date 12/13/21. Surgical clearance fragment from pathology was negative. Surgical clearance fragment from micro had pseudomonas growth. Additional oral cipro was recommended by ID specialist; to follow instructions as advised. ID physician communicated this plan. Note: Robert Applebaum MD speech recognition escalator attendant software was used to create portions of this document. Sound-alike and misspelled words, as well as other escalator attendant errors may be contained in the documentation. The medical decision making level is low. There is noted low risk of morbidity after considering this treatment plan and diagnostic data. The problems addressed require a low medical decision making level which includes two or more minor problems, a stable chronic illness, or an acute uncomplicated illness or injury.
[2022-01-30 08:28] VITALS: BP 133/52; PULSE 83; RESP 18; TEMP 36.7; BMI 28.8
--- NOTE | 2022-01-30 09:02 | PN.PCM_ITS ---
History of Present Illness Date of Service: 01/30/22 Chief Complaint: right foot ulcer / recent first ray resection surgery History of Wound: This 62-year-old diabetic male was seen in clinic today. He underwent amputation of the right hallux at the first metatarsophalangeal joint on 09/25/2021. He now continues on oral antibiotics in the outpatient setting after he completed a course of IV antibiotics. He denies any nausea, vomiting, fever, chills, or other constitutional symptoms. Patient has a history of anxiety and depression secondary to dealing with his chronic hallux ulceration for the last year. He has completed a procedure with Dr. Wells for vascular surgery intervention on 11-27-2021; angioplasty of anterior tibial and peroneal arteries with improved foot flow. He is now status post first ray resection/amputation that was performed on 12-11-2021 at [facility]. He has tried to keep pressure off this site. He has reduced drainage. He wears a surgical shoe and is unable to do a total contact cast because he has to drive himself. Progress of Wound: improving Objective Data Objective Data Vital Signs: Vital Signs Temp Pulse Resp BP 98.1 F 83 18 133/52 H 01/30/22 08:28 01/30/22 08:28 01/30/22 08:28 01/30/22 08:28 Weight: 86.183 kg Body Mass Index (BMI) 28.8 Physical Exam Const alert, oriented x3 and no apparent distress General Appearance: cooperative and comfortable HEENT normocephalic Lymph Lymphatic: no lymphedema noted Extremity Peripheral Pulses: Negative for posterior tibial pulses present or dorsalis pedis pulses present Skin Wound Narrative: first ray resection site is stable with central updated sutures intact. the dorsal most aspect remains closed. no central tissue plug noted. no purulence, odor , erythema, streaking or eschar or necrosis noted. no bogginess or fluctuance on palpation to the surgical site. compartments remain soft to palpate. hematogenous drainage only noted and reduced ulcer size and drainage is appreciated Neuro oriented x3 and moves all extremities Debridement Note Debridement Note Wound debrided: right foot Wound Grade/Stage: 3 Type of Debridement: Excisional debridement Anesthesia Used: 4% Lidocaine Solution Depth: in the subcutaneous layer Percentage of wound debrided: 100 Instrument Used: #15 blade Tissue Removed: fibrous, devitalized subcutaneous, biofilm, slough Severity: Fat Layer Exposed Amount of bleeding with debridement: Mild Bleeding Controlled with: Pressure Patient tolerated procedure: Patient tolerated procedure well Post-Debridement Measurements and Additional Note: Post-Debridement Measurements/Treatment - Nurse 1 - General Ulcer Assessment Start: 01/09/22 09:06 Freq: Status: Active Protocol: JAE.TAMMYT Activity Type Activity Date Activity User E-sign Co-sign Detail Recorded Client Recorded Date Recorded By Document 01/09/22 09:06 RB [id number] 01/09/22 09:09 RB Document 01/16/22 09:11 DL [id number] 01/16/22 09:17 DL Document 01/23/22 09:56 DL [id number] 01/23/22 10:02 DL Document 01/30/22 08:28 DL [id number] 01/30/22 08:32 DL 01/09/22 01/16/22 01/23/22 09:06 09:11 09:56 - Today's Visit Information Type of service Follow-up Visit Follow-up Visit Follow-up Visit (Physician/CREDENTIALS SPECIALIST (Physician/CREDENTIALS SPECIALIST (Physician/CREDENTIALS SPECIALIST ) ) ) Arrival Mode Ambulatory Ambulatory, Ambulatory, Crutches Crutches Transfer Assistance None None None Patient Identification Verified (Name & Yes Yes Yes ) Patient Requires Transmission-Based No No No Precautions Safety Precautions Fall Prevention Height and Weight Body Mass Index (BMI) 28.8 28.8 28.8 BMI Classification Overweight Overweight Overweight Vital Signs Temperature (97.8 F-99.1 F) 97.3 F L 97.3 F L 98.1 F Temperature Source Temporal Temporal Temporal Pulse Rate (60-100) 76 74 82 Pulse Location Monitor Monitor Monitor Respiratory Rate (12-18) 18 18 20 H Respiratory rate source Observation Observation Observation Blood Pressure (90/60-120/80) 140/56 H 140/76 H 131/60 H Blood Pressure Mean (mm Hg) 84 97 83 Source Monitor Monitor History Since Last Visit- (Skip if this is Patient's initial visit) Have you changed medications since your No No No last visit? Any new allergies or adverse reactions No No No Had a fall/change in ADL's that may No No No increase risk of falls Signs or symptoms of abuse and/or No No No neglect since last visit Have you been in the hospital since your No No No last visit? Has dressing in place as prescribed Yes Yes Yes Has compression in place as prescribed Yes No Yes Has offloadiing in place as prescribed No Yes Yes Experienced any changes in pain level or No No No management Left Footwear Regular Shoe Right Footwear Surgical Shoe Surgical Shoe Surgical Shoe with pressure with pressure with pressure relief insole relief insole relief insole Pain Scale: 0-10 Numeric Is Patient Pain Free? Yes Yes Yes 01/30/22 08:28 WC - Today's Visit Information Type of service Follow-up Visit (Physician/CREDENTIALS SPECIALIST ) Arrival Mode Ambulatory, Walker Transfer Assistance None Patient Identification Verified (Name & Yes ) Patient Requires Transmission-Based No Precautions Safety Precautions Height and Weight Body Mass Index (BMI) 28.8 BMI Classification Overweight Vital Signs Temperature (97.8 F-99.1 F) 98.1 F Temperature Source Temporal Pulse Rate (60-100) 83 Pulse Location Monitor Respiratory Rate (12-18) 18 Respiratory rate source Observation Blood Pressure (90/60-120/80) 133/52 H Blood Pressure Mean (mm Hg) 79 Source Monitor History Since Last Visit- (Skip if this is Patient's initial visit) Have you changed medications since your No last visit? Any new allergies or adverse reactions No Had a fall/change in ADL's that may No increase risk of falls Signs or symptoms of abuse and/or No neglect since last visit Have you been in the hospital since your No last visit? Has dressing in place as prescribed Yes Has compression in place as prescribed No Has offloadiing in place as prescribed Yes Experienced any changes in pain level or No management Left Footwear Right Footwear Surgical Shoe with pressure relief insole Pain Scale: 0-10 Numeric Is Patient Pain Free? Yes - Nurse 1 - General Ulcer Measurement Start: 01/09/22 09:06 Freq: Status: Active Protocol: Activity Type Activity Date Activity User E-sign Co-sign Detail Recorded Client Recorded Date Recorded By Document 01/09/22 09:06 RB [id number] 01/09/22 09:09 RB Document 01/16/22 09:11 DL [id number] 01/16/22 09:17 DL Edit Result 01/16/22 09:11 DL (1) [id number] 01/16/22 09:18 DL Document 01/23/22 09:56 DL [id number] 01/23/22 10:02 DL Document 01/30/22 08:28 DL [id number] 01/30/22 08:32 DL (1) #4- R FOOT HALLUX AMP SITE post -op - Current Size (cm) - Width 0.1 => 0.7 - Total Square Cm 0.1 => 0.7 01/09/22 01/16/22 01/23/22 09:06 09:11 09:56 Wound Center Nurse 1 #4- R FOOT HALLUX AMP SITE post -op -Combined with other wound No -Current Size (cm) - Length 0.1 1 0.5 -Current Size (cm) - Width 0.1 0.7 0.8 -Current Size (cm) - Depth 0.1 0.1 0.2 -Total Square Cm 0.01 0.7 0.40 -Photo Taken Yes No No -Tunneling No -Undermining/Tunneling No -Circular Undermining No -Exudate Amt Medium Small Small -Exudate Type Serosanguineous Serosanguineous Serosanguineous -Wound Margin Distinct, Distinct, Distinct, Outline Outline Outline Attached Attached Attached -Granulation Amt Medium (34-66%) Small (1-33%) Medium (34-66%) -Granulation Quality [place] -Slough/Fibrin Yes -Necrosis Amt Medium (34-66%) Large (67-100%) Medium (34-66%) -Necrotic Tissue Type Adherent Slough Adherent Slough Adherent Slough -Structure Exposed N/A N/A N/A -Texture (Ashlyn-wound Skin Appearance) Assessed, Localized Edema Scarring Localized Edema ,Scarring -Moisture (Ashlyn-wound Skin Appearance) Assessed Maceration Maceration -Color (Ashlyn-wound Skin Appearance) Assessed No Abnormality No Abnormality -Temperature (Ashlyn-wound Skin No Abnormality No Abnormality No Abnormality Appearance) (Pt Warm) (Pt Warm) (Pt Warm) -Tenderness on Palpation (Ashlyn-wound No No No Skin Appearance) -Ulcer Cleansing Wound Cleanser Rinsed/ Soap and Water Irrigated with Saline -Foul Odor after Cleansing No Yes, Due to No Product Use -Anesthetic Used 5% Lidocaine 5% Lidocaine Gel Gel Right Calf (cm) 34.3 Right Ankle (cm) 19.6 01/30/22 08:28 Wound Center Nurse 1 #4- R FOOT HALLUX AMP SITE post -op -Combined with other wound -Current Size (cm) - Length 1.7 -Current Size (cm) - Width 1.6 -Current Size (cm) - Depth 0.1 -Total Square Cm 2.72 -Photo Taken No -Tunneling -Undermining/Tunneling -Circular Undermining -Exudate Amt Medium -Exudate Type Serosanguineous -Wound Margin Distinct, Outline Attached -Granulation Amt None Present (0 %) -Granulation Quality -Slough/Fibrin -Necrosis Amt Large (67-100%) -Necrotic Tissue Type Adherent Slough -Structure Exposed -Texture (Ashlyn-wound Skin Appearance) Scarring -Moisture (Ashlyn-wound Skin Appearance) No Abnormality -Color (Ashlyn-wound Skin Appearance) No Abnormality -Temperature (Ashlyn-wound Skin No Abnormality Appearance) (Pt Warm) -Tenderness on Palpation (Ashlyn-wound No Skin Appearance) -Ulcer Cleansing Soap and Water -Foul Odor after Cleansing No -Anesthetic Used 5% Lidocaine Gel Right Calf (cm) Right Ankle (cm) 01/09/22 09:09 Wound Center by Jaky Orr sutures intact on right foot incision Initialized on 01/09/22 09:09 - END OF NOTE WC - Nurse 2 - General Ulcer CM Notes Start: 01/09/22 09:06 Freq: Status: Active Protocol: Activity Type Activity Date Activity User E-sign Co-sign Detail Recorded Client Recorded Date Recorded By Document 01/09/22 09:29 [id number] 01/09/22 09:30 Document 01/16/22 09:32 [id number] 01/16/22 09:37 Document 01/23/22 10:08 [id number] 01/23/22 10:13 Document 01/30/22 08:45 [id number] 01/30/22 08:49 01/09/22 01/16/22 01/23/22 09:29 09:32 10:08 Wound Center Nurse 2 #4- R FOOT HALLUX AMP SITE post -op -Time 09:29 09:33 10:09 -Correct Patient Yes Yes Yes -Correct Side, Site, Position Yes Yes Yes -Correct Procedure Yes Yes Yes -Procedure Performed Yes Yes Yes -Type of Procedure Debridement Debridement Debridement -Clinical Debridement Subcutaneous Subcutaneous Subcutaneous -Tissue Removed Subcutaneous Subcutaneous Subcutaneous -Post Debridement (cm) - Length 2.0 1.0 1.4 -Post Debridement (cm) - Width 0.5 0.8 4.0 -Post Debridement (cm) - Depth 0.1 0.2 0.2 -Total Square (Post) (cm) 1.00 0.80 5.60 -Area of Debridement (cm) - Length 2.0 1 1.4 -Area of Debridement (cm) - Width 0.5 0.8 4.0 -Total Square (Area) (cm) 1.00 0.8 5.60 -Tunneling No No No -Undermining/Tunneling No No No -Circular Undermining No No No -Wound/Ulcer Outcome Not Healed Not Healed Not Healed -Ulcer Cleansing Rinsed/ Rinsed/ Rinsed/ Irrigated with Irrigated with Irrigated with Saline Saline Saline -Foul Odor after Cleansing No No No -Bioengineered Tissue No No No -Bleeding Controlled with Pressure Pressure Pressure -Treatment Response Procedure Procedure Procedure Tolerated Well Tolerated Well Tolerated Well -Offloading Yes Yes Yes -Type of Offloading Surgical Shoe Surgical Shoe Surgical Shoe -Assistive Device(s) -Debridement - Subq, 1st 20sq cm Yes Yes Yes Pain Scale: 0-10 Numeric Is Patient Pain Free? Yes Yes Yes 01/30/22 08:45 Wound Center Nurse 2 #4- R FOOT HALLUX AMP SITE post -op -Time 08:48 -Correct Patient Yes -Correct Side, Site, Position Yes -Correct Procedure Yes -Procedure Performed Yes -Type of Procedure Debridement -Clinical Debridement Subcutaneous -Tissue Removed Subcutaneous -Post Debridement (cm) - Length 1.7 -Post Debridement (cm) - Width 1.7 -Post Debridement (cm) - Depth 0.3 -Total Square (Post) (cm) 2.89 -Area of Debridement (cm) - Length 1.7 -Area of Debridement (cm) - Width 1.7 -Total Square (Area) (cm) 2.89 -Tunneling No -Undermining/Tunneling No -Circular Undermining No -Wound/Ulcer Outcome Not Healed -Ulcer Cleansing Rinsed/ Irrigated with Saline -Foul Odor after Cleansing No -Bioengineered Tissue No -Bleeding Controlled with Pressure -Treatment Response Procedure Tolerated Well -Offloading Yes -Type of Offloading Surgical Shoe -Assistive Device(s) Crutches -Debridement - Subq, 1st 20sq cm Yes Pain Scale: 0-10 Numeric Is Patient Pain Free? Yes - Nurse 3 - General Ulcer D/C NN Start: 01/09/22 09:06 Freq: Status: Active Protocol: Activity Type Activity Date Activity User E-sign Co-sign Detail Recorded Client Recorded Date Recorded By Document 01/09/22 09:36 [facility] Desktop 01/09/22 09:38 [facility] Document 01/16/22 09:50 DL [id number] 01/16/22 09:53 DL Document 01/23/22 10:29 [facility] [id number] 01/23/22 10:30 [facility] 01/09/22 01/16/22 01/23/22 09:36 09:50 10:29 Wound Care Nurse 3 #4- R FOOT HALLUX AMP SITE post -op -Ulcer Cleansing Rinsed/ Rinsed/ Rinsed/ Irrigated with Irrigated with Irrigated with Saline Saline Saline -Foul Odor after Cleansing No No No -Primary Dressing Applied Aquacel AG 4x4 Aquacel AG 2x2 Promogran Olivia Matter -Other Dressing drsg per rb rn -Primary Dressing Covered/Secured with Dry Gauze & Dry Gauze & Dry Gauze & Roll Gauze, Roll Gauze, Roll Gauze, Secured with Secured with Secured with Tape,Other Tape Tape,Other -Other Covering abd abd -Aquacel AG 4x4 1 -Aquacel AG 2x2 1 -Promogran Olivia Matter 1 Right -Tubular Bandage Single Layer Single Layer -Size of Tubigrip Used Size D Size D -Size D ($) 1 1 -Other applied pts own double layer tubi Treatment Response Procedure Procedure Procedure Tolerated Well Tolerated Well Tolerated Well Pain Scale: 0-10 Numeric Is Patient Pain Free? Yes Yes Yes WC - Visit Discharge Discharge Condition Stable Stable Stable Ambulatory Status Ambulatory, Ambulatory, Ambulatory, Crutches Crutches Crutches Transportation Private Auto Private Auto Private Auto Facility Type Home Health Home Health Orders Sent Yes Assessment/Plan Assessment/Plan (1) Ulcer of right foot with necrosis of bone: CODE(S): L97.514 - Non-pressure chronic ulcer of other part of right foot with necrosis of bone (2) Type 2 diabetes mellitus with diabetic polyneuropathy: CODE(S): E11.42 - Type 2 diabetes mellitus with diabetic polyneuropathy (3) Hallux limitus of right foot: CODE(S): M20.5X1 - Other deformities of toe(s) (acquired), right foot (4) Osteomyelitis: CODE(S): M86.9 - Osteomyelitis, unspecified QUALIFIERS: Osteomyelitis type: other acute Osteomyelitis location: foot Laterality: right Qualified Code(s): M86.171 - Other acute osteomyelitis, right ankle and foot (5) Other specified peripheral vascular diseases: CODE(S): I73.89 - Other specified peripheral vascular diseases (6) Delayed wound healing: CODE(S): T14.8XXD - Other injury of unspecified body region, subsequent encounter (7) 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 He was reassured there is no erythema or purulence to the foot. Sutures intact from additional closure performed last week. Debridement performed to central most distal aspect as described in the nursing documentation. He tolerated this well. Dressing: To change dressings daily with Olivia. Advance wound healing options: I recommend advancing healing product epi cord and later epi fix when this wound is more superficial to optimize healing. The indications and benefits, anticipated management and healing process was reviewed. This is medically necessary for limb salvage and he is at risk for further amputations, infections, delayed healing and even . Prior authorization is still pending. Offload: Heel weightbearing with surgical shoe. To use assistive device. I recommend fully offloading the entire foot transitioning to nonweightbearing status with a walker or knee roller. This is imperative for healing. It is noted he is unable to proceed forward with the recommended total contact cast. The Vascular: He had prior vascular surgery intervention at [facility] in [place] and also locally with Dr. Wells. On 11-27-2021 he had additional vascular surgery procedure performed; angioplasty of anterior tibial and peroneal arteries with improved foot flow. Host factors: He has uncontrolled diabetes with a self-reported A1c of over 9%. He understands this in combination with his known vascular disease make healing difficult. He is at risk for amputation and he is made this previously clear that he will not proceed forward with this. I recommend nutritional education to optimize healing. I advised him to avoid skipping meals. Advised him to eat a whole food balanced diet that not only focuses on adequate (not excessive) protein but also nutrient dense food intake. 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 Resources were provided as reviewed them. This was discussed again today. Infection: Prior h/o cipro for PsA R foot osteo. recently worsened and updated cx now resistance to cipro. PICC placed, 6 weeks iv zosyn, stop date 12/13/21. Surgical clearance fragment from pathology was negative. Surgical clearance fragment from micro had pseudomonas growth. Additional oral cipro was recommended by ID specialist; to follow instructions as advised. ID physician communicated this plan. Note: [email or web address] speech recognition plate and frame filter operator software was used to create portions of this document. Sound-alike and misspelled words, as well as other plate and frame filter operator errors may be contained in the documentation.
[2022-02-06 08:53] VITALS: RESP 16; TEMP 36.3; BMI 28.8
--- NOTE | 2022-02-06 09:50 | PN.PCM_ITS ---
History of Present Illness Date of Service: 02/06/22 Chief Complaint: right foot ulcer / recent first ray resection surgery History of Wound: This 62-year-old diabetic male was seen in clinic today. He underwent amputation of the right hallux at the first metatarsophalangeal joint on 09/25/2021. He now continues on oral antibiotics in the outpatient setting after he completed a course of IV antibiotics. He denies any nausea, vomiting, fever, chills, or other constitutional symptoms. Patient has a history of anxiety and depression secondary to dealing with his chronic hallux ulceration for the last year. He has completed a procedure with Dr. Wells for vascular surgery intervention on 11-27-2021; angioplasty of anterior tibial and peroneal arteries with improved foot flow. He is now status post first ray resection/amputation that was performed on 12-11-2021 at [facility]. He has tried to keep pressure off this site. He has reduced drainage. He wears a surgical shoe and is unable to do a total contact cast because he has to drive himself. He is ready to proceed forward with advanced wound healing product application today. Progress of Wound: improving Objective Data Objective Data Vital Signs: Vital Signs Temp Pulse Resp BP 97.3 F L 83 16 133/52 H 02/06/22 08:53 01/30/22 08:28 02/06/22 08:53 01/30/22 08:28 Oxygen Delivery Method Room Air Weight: 86.183 kg Body Mass Index (BMI) 28.8 Physical Exam Const alert, oriented x3 and no apparent distress General Appearance: cooperative and comfortable HEENT normocephalic Lymph Lymphatic: no lymphedema noted Skin Wound Narrative: first ray resection site is stable with central updated sutures intact. the dorsal most aspect remains closed. no central tissue plug noted. no purulence, odor , erythema, streaking or eschar or necrosis noted. no bogginess or fluctuance on palpation to the surgical site. compartments remain soft to palpate. hematogenous drainage only noted and reduced ulcer size and drainage is appreciated Neuro oriented x3 and moves all extremities Debridement Note Debridement Note Wound debrided: right foot Wound Grade/Stage: 3 Type of Debridement: Excisional debridement Anesthesia Used: 4% Lidocaine Solution Depth: in the subcutaneous layer Percentage of wound debrided: 100 Instrument Used: #15 blade Tissue Removed: fibrous, devitalized subcutaneous, biofilm, slough Severity: Fat Layer Exposed Amount of bleeding with debridement: Mild Bleeding Controlled with: Pressure Patient tolerated procedure: Patient tolerated procedure well Post-Debridement Measurements and Additional Note: Post-Debridement Measurements/Treatment - Nurse 1 - General Ulcer Assessment Start: 01/09/22 09:06 Freq: Status: Active Protocol: JAE.TAMMYT Activity Type Activity Date Activity User E-sign Co-sign Detail Recorded Client Recorded Date Recorded By Document 01/09/22 09:06 RB [id number] 01/09/22 09:09 RB Document 01/16/22 09:11 DL [id number] 01/16/22 09:17 DL Document 01/23/22 09:56 DL [id number] 01/23/22 10:02 DL Document 01/30/22 08:28 DL [id number] 01/30/22 08:32 DL Document 02/06/22 08:53 BM [id number] 02/06/22 09:01 BMF 01/09/22 01/16/22 01/23/22 09:06 09:11 09:56 - Today's Visit Information Type of service Follow-up Visit Follow-up Visit Follow-up Visit (Physician/BROADCAST FIELD SUPERVISOR (Physician/BROADCAST FIELD SUPERVISOR (Physician/BROADCAST FIELD SUPERVISOR ) ) ) Arrival Mode Ambulatory Ambulatory, Ambulatory, Crutches Crutches Transfer Assistance None None None Patient Identification Verified (Name & Yes Yes Yes ) Patient Requires Transmission-Based No No No Precautions Safety Precautions Fall Prevention Height and Weight Body Mass Index (BMI) 28.8 28.8 28.8 BMI Classification Overweight Overweight Overweight Vital Signs Temperature (97.8 F-99.1 F) 97.3 F L 97.3 F L 98.1 F Temperature Source Temporal Temporal Temporal Pulse Rate (60-100) 76 74 82 Pulse Location Monitor Monitor Monitor Respiratory Rate (12-18) 18 18 20 H Respiratory rate source Observation Observation Observation Oxygen Delivery Method Blood Pressure (90/60-120/80) 140/56 H 140/76 H 131/60 H Blood Pressure Mean (mm Hg) 84 97 83 Source Monitor Monitor Position Blood Pressure Location History Since Last Visit- (Skip if this is Patient's initial visit) Have you changed medications since your No No No last visit? Any new allergies or adverse reactions No No No Had a fall/change in ADL's that may No No No increase risk of falls Signs or symptoms of abuse and/or No No No neglect since last visit Have you been in the hospital since your No No No last visit? Has dressing in place as prescribed Yes Yes Yes Has compression in place as prescribed Yes No Yes Has offloadiing in place as prescribed No Yes Yes Experienced any changes in pain level or No No No management Left Footwear Regular Shoe Right Footwear Surgical Shoe Surgical Shoe Surgical Shoe with pressure with pressure with pressure relief insole relief insole relief insole Pain Scale: 0-10 Numeric Is Patient Pain Free? Yes Yes Yes 01/30/22 02/06/22 08:28 08:53 WC - Today's Visit Information Type of service Follow-up Visit Follow-up Visit (Physician/BROADCAST FIELD SUPERVISOR (Physician/BROADCAST FIELD SUPERVISOR ) ) Arrival Mode Ambulatory, Ambulatory, Walker Crutches Transfer Assistance None None Patient Identification Verified (Name & Yes Yes ) Patient Requires Transmission-Based No No Precautions Safety Precautions Height and Weight Body Mass Index (BMI) 28.8 28.8 BMI Classification Overweight Overweight Vital Signs Temperature (97.8 F-99.1 F) 98.1 F 97.3 F L Temperature Source Temporal Temporal Pulse Rate (60-100) 83 Pulse Location Monitor Monitor Respiratory Rate (12-18) 18 16 Respiratory rate source Observation Observation Oxygen Delivery Method Room Air Blood Pressure (90/60-120/80) 133/52 H Blood Pressure Mean (mm Hg) 79 Source Monitor Monitor Position Sitting Blood Pressure Location Left Arm History Since Last Visit- (Skip if this is Patient's initial visit) Have you changed medications since your No last visit? Any new allergies or adverse reactions No Had a fall/change in ADL's that may No increase risk of falls Signs or symptoms of abuse and/or No neglect since last visit Have you been in the hospital since your No last visit? Has dressing in place as prescribed Yes Has compression in place as prescribed No Has offloadiing in place as prescribed Yes Experienced any changes in pain level or No management Left Footwear Regular Shoe Right Footwear Surgical Shoe Surgical Shoe with pressure with pressure relief insole relief insole Pain Scale: 0-10 Numeric Is Patient Pain Free? Yes Yes - Nurse 1 - General Ulcer Measurement Start: 01/09/22 09:06 Freq: Status: Active Protocol: Activity Type Activity Date Activity User E-sign Co-sign Detail Recorded Client Recorded Date Recorded By Document 01/09/22 09:06 RB [id number] 01/09/22 09:09 RB Document 01/16/22 09:11 DL [id number] 01/16/22 09:17 DL Edit Result 01/16/22 09:11 DL (1) [id number] 01/16/22 09:18 DL Document 01/23/22 09:56 DL [id number] 01/23/22 10:02 DL Document 01/30/22 08:28 DL [id number] 01/30/22 08:32 DL Document 02/06/22 08:53 BMF [id number] 02/06/22 09:01 BMF (1) #4- R FOOT HALLUX AMP SITE post -op - Current Size (cm) - Width 0.1 => 0.7 - Total Square Cm 0.1 => 0.7 01/09/22 01/16/22 01/23/22 09:06 09:11 09:56 Wound Center Nurse 1 #4- R FOOT HALLUX AMP SITE post -op -Combined with other wound No -Current Size (cm) - Length 0.1 1 0.5 -Current Size (cm) - Width 0.1 0.7 0.8 -Current Size (cm) - Depth 0.1 0.1 0.2 -Total Square Cm 0.01 0.7 0.40 -Date of Last Picture (Recall this field) -Photo Taken Yes No No -Epithelialization -Tunneling No -Undermining/Tunneling No -Circular Undermining No -Exudate Amt Medium Small Small -Exudate Type Serosanguineous Serosanguineous Serosanguineous -Wound Margin Distinct, Distinct, Distinct, Outline Outline Outline Attached Attached Attached -Granulation Amt Medium (34-66%) Small (1-33%) Medium (34-66%) -Granulation Quality [place] -Slough/Fibrin Yes -Necrosis Amt Medium (34-66%) Large (67-100%) Medium (34-66%) -Necrotic Tissue Type Adherent Slough Adherent Slough Adherent Slough -Structure Exposed N/A N/A N/A -Texture (Ashlyn-wound Skin Appearance) Assessed, Localized Edema Scarring Localized Edema ,Scarring -Moisture (Ashlyn-wound Skin Appearance) Assessed Maceration Maceration -Color (Ashlyn-wound Skin Appearance) Assessed No Abnormality No Abnormality -Temperature (Ashlyn-wound Skin No Abnormality No Abnormality No Abnormality Appearance) (Pt Warm) (Pt Warm) (Pt Warm) -Tenderness on Palpation (Ashlyn-wound No No No Skin Appearance) -Ulcer Cleansing Wound Cleanser Rinsed/ Soap and Water Irrigated with Saline -Foul Odor after Cleansing No Yes, Due to No Product Use -Anesthetic Used 5% Lidocaine 5% Lidocaine Gel Gel Right Calf (cm) 34.3 Right Ankle (cm) 19.6 01/30/22 02/06/22 08:28 08:53 Wound Center Nurse 1 #4- R FOOT HALLUX AMP SITE post -op -Combined with other wound No -Current Size (cm) - Length 1.7 2 -Current Size (cm) - Width 1.6 0.5 -Current Size (cm) - Depth 0.1 0.3 -Total Square Cm 2.72 1.0 -Date of Last Picture (Recall this 02/06/22 field) -Photo Taken No Yes -Epithelialization None Present -Tunneling No -Undermining/Tunneling No -Circular Undermining No -Exudate Amt Medium Small -Exudate Type Serosanguineous Serous -Wound Margin Distinct, Distinct, Outline Outline Attached Attached -Granulation Amt None Present (0 None Present (0 %) %) -Granulation Quality -Slough/Fibrin Yes -Necrosis Amt Large (67-100%) Large (67-100%) -Necrotic Tissue Type Adherent Slough Adherent Slough -Structure Exposed -Texture (Ashlyn-wound Skin Appearance) Scarring Assessed -Moisture (Ashlyn-wound Skin Appearance) No Abnormality Assessed,Dry/ Scaly -Color (Ashlyn-wound Skin Appearance) No Abnormality Assessed -Temperature (Ashlyn-wound Skin No Abnormality No Abnormality Appearance) (Pt Warm) (Pt Warm) -Tenderness on Palpation (Ashlyn-wound No No Skin Appearance) -Ulcer Cleansing Soap and Water Rinsed/ Irrigated with Saline -Foul Odor after Cleansing No No -Anesthetic Used 5% Lidocaine Gel Right Calf (cm) 34.1 Right Ankle (cm) 19.7 01/09/22 09:09 Wound Center by Jaky Orr sutures intact on right foot incision Initialized on 01/09/22 09:09 - END OF NOTE WC - Nurse 2 - General Ulcer CM Notes Start: 01/09/22 09:06 Freq: Status: Active Protocol: Activity Type Activity Date Activity User E-sign Co-sign Detail Recorded Client Recorded Date Recorded By Document 01/09/22 09:29 [id number] 01/09/22 09:30 Document 01/16/22 09:32 [id number] 01/16/22 09:37 Document 01/23/22 10:08 [id number] 01/23/22 10:13 Document 01/30/22 08:45 [id number] 01/30/22 08:49 Document 02/06/22 09:13 PL [id number] 02/06/22 09:15 PL 01/09/22 01/16/22 01/23/22 09:29 09:32 10:08 Wound Center Nurse 2 #4- R FOOT HALLUX AMP SITE post -op -Time 09: 09:33 10:09 -Correct Patient Yes Yes Yes -Correct Side, Site, Position Yes Yes Yes -Correct Procedure Yes Yes Yes -Procedure Performed Yes Yes Yes -Type of Procedure Debridement Debridement Debridement -Clinical Debridement Subcutaneous Subcutaneous Subcutaneous -Tissue Removed Subcutaneous Subcutaneous Subcutaneous -Post Debridement (cm) - Length 2.0 1.0 1.4 -Post Debridement (cm) - Width 0.5 0.8 4.0 -Post Debridement (cm) - Depth 0.1 0.2 0.2 -Total Square (Post) (cm) 1.00 0.80 5.60 -Area of Debridement (cm) - Length 2.0 1 1.4 -Area of Debridement (cm) - Width 0.5 0.8 4.0 -Total Square (Area) (cm) 1.00 0.8 5.60 -Tunneling No No No -Undermining/Tunneling No No No -Circular Undermining No No No -Wound/Ulcer Outcome Not Healed Not Healed Not Healed -Ulcer Cleansing Rinsed/ Rinsed/ Rinsed/ Irrigated with Irrigated with Irrigated with Saline Saline Saline -Foul Odor after Cleansing No No No -Bioengineered Tissue No No No -Type of Bioengineered Tissue -Expiration Date -Product Lot Number -Percent Used -Lot number of Saline Used -Bleeding Controlled with Pressure Pressure Pressure -Treatment Response Procedure Procedure Procedure Tolerated Well Tolerated Well Tolerated Well -Offloading Yes Yes Yes -Type of Offloading Surgical Shoe Surgical Shoe Surgical Shoe -Assistive Device(s) -Debridement - Subq, 1st 20sq cm Yes Yes Yes -Apply Skin Sub - 1st 25 sq cm - Feet -Epifix 18mm Disc Pain Scale: 0-10 Numeric Is Patient Pain Free? Yes Yes Yes 01/30/22 02/06/22 08:45 09:13 Wound Center Nurse 2 #4- R FOOT HALLUX AMP SITE post -op -Time 08:48 09:06 -Correct Patient Yes Yes -Correct Side, Site, Position Yes Yes -Correct Procedure Yes Yes -Procedure Performed Yes Yes -Type of Procedure Debridement Debridement -Clinical Debridement Subcutaneous Subcutaneous -Tissue Removed Subcutaneous Subcutaneous -Post Debridement (cm) - Length 1.7 1.9 -Post Debridement (cm) - Width 1.7 1.7 -Post Debridement (cm) - Depth 0.3 0.2 -Total Square (Post) (cm) 2.89 3.23 -Area of Debridement (cm) - Length 1.7 1.9 -Area of Debridement (cm) - Width 1.7 1.7 -Total Square (Area) (cm) 2.89 3.23 -Tunneling No No -Undermining/Tunneling No No -Circular Undermining No No -Wound/Ulcer Outcome Not Healed Not Healed -Ulcer Cleansing Rinsed/ Rinsed/ Irrigated with Irrigated with Saline Saline -Foul Odor after Cleansing No No -Bioengineered Tissue No Yes -Type of Bioengineered Tissue Epifix 18mm Disc -Expiration Date 10/09/26 -Product Lot Number [id number] -Percent Used 100 -Lot number of Saline Used [id number] -Bleeding Controlled with Pressure Pressure -Treatment Response Procedure Procedure Tolerated Well Tolerated Well -Offloading Yes -Type of Offloading Surgical Shoe -Assistive Device(s) Crutches -Debridement - Subq, 1st 20sq cm Yes No -Apply Skin Sub - 1st 25 sq cm - Feet 1 -Epifix 18mm Disc 3 Pain Scale: 0-10 Numeric Is Patient Pain Free? Yes Yes WC - Nurse 3 - General Ulcer D/C NN Start: 01/09/22 09:06 Freq: Status: Active Protocol: Activity Type Activity Date Activity User E-sign Co-sign Detail Recorded Client Recorded Date Recorded By Document 01/09/22 09:36 [facility] Desktop 01/09/22 09:38 BM Document 01/16/22 09:50 DL [id number] 01/16/22 09:53 DL Document 01/23/22 10:29 [facility] [id number] 01/23/22 10:30 [facility] Document 01/30/22 09:04 RB [id number] 01/30/22 09:08 RB Document 02/06/22 09:22 DL [id number] 02/06/22 09:24 DL 01/09/22 01/16/22 01/23/22 09:36 09:50 10:29 Wound Care Nurse 3 #4- R FOOT HALLUX AMP SITE post -op -Ulcer Cleansing Rinsed/ Rinsed/ Rinsed/ Irrigated with Irrigated with Irrigated with Saline Saline Saline -Foul Odor after Cleansing No No No -Primary Dressing Applied Aquacel AG 4x4 Aquacel AG 2x2 Promogran Olivia Matter -Other Dressing drsg per rb rn -Primary Dressing Covered/Secured with Dry Gauze & Dry Gauze & Dry Gauze & Roll Gauze, Roll Gauze, Roll Gauze, Secured with Secured with Secured with Tape,Other Tape Tape,Other -Other Covering abd abd -Aquacel AG 4x4 1 -Aquacel AG 2x2 1 -Promogran Olivia Matter 1 Right -Tubular Bandage Single Layer Single Layer -Size of Tubigrip Used Size D Size D -Size D ($) 1 1 -Other applied pts own double layer tubi Treatment Response Procedure Procedure Procedure Tolerated Well Tolerated Well Tolerated Well Pain Scale: 0-10 Numeric Is Patient Pain Free? Yes Yes Yes WC - Visit Discharge Discharge Condition Stable Stable Stable Ambulatory Status Ambulatory, Ambulatory, Ambulatory, Crutches Crutches Crutches Transportation Private Auto Private Auto Private Auto Medication Reconcilliation completed & provided to patient/care provider Facility Type Home Health Home Health Orders Sent Yes 01/30/22 02/06/22 09:04 09:22 Wound Care Nurse 3 #4- R FOOT HALLUX AMP SITE post -op -Ulcer Cleansing Rinsed/ Irrigated with Saline -Foul Odor after Cleansing No -Primary Dressing Applied Promogran Olivia Matter -Other Dressing Epifix -Primary Dressing Covered/Secured with Dry Gauze,Dry Dry Gauze & Gauze & Roll Roll Gauze, Gauze,Secured Secured with with Tape Tape -Other Covering -Aquacel AG 4x4 -Aquacel AG 2x2 -Promogran Olivia Matter 1 Right -Tubular Bandage Single Layer -Size of Tubigrip Used Size D -Size D ($) 1 -Other tubigrip Treatment Response Procedure Procedure Tolerated Well Tolerated Well Pain Scale: 0-10 Numeric Is Patient Pain Free? Yes Yes WC - Visit Discharge Discharge Condition Stable Stable Ambulatory Status Ambulatory, Ambulatory Crutches Transportation Private Auto Private Auto Medication Reconcilliation completed & Yes provided to patient/care provider Facility Type Home Health Orders Sent Yes Assessment/Plan Assessment/Plan (1) Ulcer of right foot with necrosis of bone: CODE(S): L97.514 - Non-pressure chronic ulcer of other part of right foot with necrosis of bone (2) Type 2 diabetes mellitus with diabetic polyneuropathy: CODE(S): E11.42 - Type 2 diabetes mellitus with diabetic polyneuropathy (3) Hallux limitus of right foot: CODE(S): M20.5X1 - Other deformities of toe(s) (acquired), right foot (4) Osteomyelitis: CODE(S): M86.9 - Osteomyelitis, unspecified QUALIFIERS: Osteomyelitis type: other acute Osteomyelitis location: foot Laterality: right Qualified Code(s): M86.171 - Other acute osteomyelitis, right ankle and foot (5) Other specified peripheral vascular diseases: CODE(S): I73.89 - Other specified peripheral vascular diseases (6) Delayed wound healing: CODE(S): T14.8XXD - Other injury of unspecified body region, subsequent encounter (7) 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 He was reassured there is no erythema or purulence to the foot. Debridement performed as noted Dressing: To keep secondary dressing clean, dry, and intact. Advance wound healing options: I recommend advancing healing product epi cord and later epi fix when this wound is more superficial to optimize healing. The indications and benefits, anticipated management and healing process was reviewed. This is medically necessary for limb salvage and he is at risk for further amputations, infections, delayed healing and even . Verbal consent was obtained and prior authorization was also obtained. This was applied according to standard protocol and was secured in place with a wound veil and Steri-Strips. 100% of the product was utilized. He tolerated this well. A secondary dressing was applied. He was advised to keep this clean, dry, and intact until follow-up next week. Offload: Heel weightbearing with surgical shoe. To use assistive device. I recommend fully offloading the entire foot transitioning to nonweightbearing status with a walker or knee roller. This is imperative for healing. It is noted he is unable to proceed forward with the recommended total contact cast. The Vascular: He had prior vascular surgery intervention at [facility] in [place] and also locally with Dr. Wells. On 11-27-2021 he had additional vascular surgery procedure performed; angioplasty of anterior tibial and peroneal arteries with improved foot flow. Host factors: He has uncontrolled diabetes with a self-reported A1c of over 9%. He understands this in combination with his known vascular disease make healing difficult. He is at risk for amputation and he is made this previously clear that he will not proceed forward with this. I recommend nutritional education to optimize healing. I advised him to avoid skipping meals. Advised him to eat a whole food balanced diet that not only focuses on adequate (not excessive) protein but also nutrient dense food intake. 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 Resources were provided as reviewed them. This was discussed again today. Infection: Prior h/o cipro for PsA R foot osteo. recently worsened and updated cx now resistance to cipro. PICC placed, 6 weeks iv zosyn, stop date 12/13/21. Surgical clearance fragment from pathology was negative. Surgical clearance fragment from micro had pseudomonas growth. Additional oral cipro was recommended by ID specialist; to follow instructions as advised. ID physician communicated this plan. Note: [employer] speech recognition producer software was used to create portions of this document. Sound-alike and misspelled words, as well as other producer errors may be contained in the documentation.
== END 2022-02-07 23:59 | disposition home or self-care (01) ==
LOC: WC 08:45
PROVIDERS: PCP Family Medicine; Visit Provider Podiatrist
DX: E11.621 Type 2 diabetes mellitus with foot ulcer (principal); E11.51 Type 2 diabetes mellitus with diabetic peripheral angiopathy without gangrene; Z89.431 Acquired absence of right foot; L97.512 Non-pressure chronic ulcer of other part of right foot with fat layer exposed; M86.171 Other acute osteomyelitis, right ankle and foot; E11.42 Type 2 diabetes mellitus with diabetic polyneuropathy; E11.69 Type 2 diabetes mellitus with other specified complication; F41.9 Anxiety disorder, unspecified; M20.5X1 Other deformities of toe(s) (acquired), right foot
CPT/HCPCS: 11042; 15275; Q4186

== ENCOUNTER 2022-03-06 11:30 | Outpatient (RCR) | payer BC, SELFPAY ==
[2022-02-08 00:19] VITALS: BP 133/52; PULSE 83; RESP 16; TEMP 36.3; BMI 28.8
[2022-02-13 09:06] VITALS: BP 147/83; PULSE 81; RESP 16; TEMP 36.1; BMI 28.8
--- NOTE | 2022-02-13 09:43 | PCM.WC.PN ---
History of Present Illness Date of Service: 02/13/22 Chief Complaint: right foot ulcer / prior first ray resection surgery History of Wound: This 62-year-old diabetic male was seen in clinic today. He underwent amputation of the right hallux at the first metatarsophalangeal joint on 09/25/2021. He now continues on oral antibiotics in the outpatient setting after he completed a course of IV antibiotics. He denies any nausea, vomiting, fever, chills, or other constitutional symptoms. Patient has a history of anxiety and depression secondary to dealing with his chronic hallux ulceration for the last year. He has completed a procedure with Dr. Wells for vascular surgery intervention on 11-27-2021; angioplasty of anterior tibial and peroneal arteries with improved foot flow. He is now status post first ray resection/amputation that was performed on 12-11-2021 at [facility]. He has tried to keep pressure off this site. He has reduced drainage. He wears a surgical shoe and is unable to do a total contact cast because he has to drive himself. He is ready to proceed forward with advanced wound healing product application today and did well last week. Progress of Wound: improving Objective Data Objective Data Vital Signs: Vital Signs Temp Pulse Resp BP O2 Del Method 97 F L 81 16 147/83 H Room Air 02/13/22 09:06 02/13/22 09:06 02/13/22 09:06 02/13/22 09:06 02/13/22 09:06 Oxygen Delivery Method Room Air Weight: 86.183 kg Body Mass Index (BMI) 28.8 Physical Exam Const alert, oriented x3 and no apparent distress General Appearance: cooperative and comfortable HEENT normocephalic Lymph Lymphatic: no lymphedema noted Skin Wound Narrative: first ray resection site is stable with central updated sutures intact. the dorsal most aspect remains closed. no central tissue plug noted. no purulence, odor , erythema, streaking or eschar or necrosis noted. no bogginess or fluctuance on palpation to the surgical site. compartments remain soft to palpate. Mild serosanguineous drainage only noted and reduced ulcer size and drainage is appreciated Neuro oriented x3 and moves all extremities Debridement Note Debridement Note Wound debrided: right foot Wound Grade/Stage: 3 Type of Debridement: Excisional debridement Anesthesia Used: 4% Lidocaine Solution Depth: in the subcutaneous layer Percentage of wound debrided: 100 Instrument Used: #15 blade Tissue Removed: fibrous, devitalized subcutaneous, biofilm, slough Severity: Fat Layer Exposed Amount of bleeding with debridement: Mild Bleeding Controlled with: Pressure Patient tolerated procedure: Patient tolerated procedure well Post-Debridement Measurements and Additional Note: Post-Debridement Measurements/Treatment - Nurse 1 - General Ulcer Assessment Start: 02/13/22 09:06 Freq: Status: Active Protocol: REHAN Activity Type Activity Date Activity User E-sign Co-sign Detail Recorded Client Recorded Date Recorded By Document 02/13/22 09:06 [facility] [id number] 02/13/22 09:18 [facility] 02/13/22 09:06 WC - Today's Visit Information Type of service Follow-up Visit (Physician/MEDICAL DEVICE SALES CONSULTANT ) Arrival Mode Ambulatory, Crutches Transfer Assistance None Patient Identification Verified (Name & Yes ) Patient Requires Transmission-Based No Precautions Height and Weight Body Mass Index (BMI) 28.8 BMI Classification Overweight Vital Signs Temperature (97.8 F-99.1 F) 97 F L Temperature Source Temporal Pulse Rate (60-100) 81 Pulse Location Monitor Respiratory Rate (12-18) 16 Respiratory rate source Observation Oxygen Delivery Method Room Air Blood Pressure (90/60-120/80) 147/83 H Blood Pressure Mean (mm Hg) 104 Source Monitor Position Sitting History Since Last Visit- (Skip if this is Patient's initial visit) Have you changed medications since your No last visit? Any new allergies or adverse reactions No Had a fall/change in ADL's that may No increase risk of falls Signs or symptoms of abuse and/or No neglect since last visit Have you been in the hospital since your No last visit? Has dressing in place as prescribed Yes Has compression in place as prescribed Yes Has offloadiing in place as prescribed Yes Experienced any changes in pain level or No management Left Footwear Regular Shoe Right Footwear Surgical Shoe with pressure relief insole Pain Scale: 0-10 Numeric Is Patient Pain Free? Yes - Nurse 1 - General Ulcer Measurement Start: 02/13/22 09:06 Freq: Status: Active Protocol: Activity Type Activity Date Activity User E-sign Co-sign Detail Recorded Client Recorded Date Recorded By Document 02/13/22 09:06 [facility] [id number] 02/13/22 09:18 [facility] 02/13/22 09:06 Wound Center Nurse 1 #4- R FOOT HALLUX AMP SITE post -op -Combined with other wound No -Current Size (cm) - Length 2 -Current Size (cm) - Width 0.4 -Current Size (cm) - Depth 0.4 -Total Square Cm 0.8 -Date of Last Picture (Recall this 02/13/22 field) -Photo Taken Yes -Epithelialization Small 1-33% -Tunneling No -Undermining/Tunneling No -Circular Undermining No -Exudate Amt Medium -Exudate Type Serosanguineous -Wound Margin Distinct, Outline Attached -Granulation Amt Small (1-33%) -Granulation Quality Red -Slough/Fibrin Yes -Necrosis Amt Large (67-100%) -Necrotic Tissue Type Adherent Slough -Texture (Ashlyn-wound Skin Appearance) Assessed, Scarring -Moisture (Ashlyn-wound Skin Appearance) Assessed,Dry/ Scaly -Color (Ashlyn-wound Skin Appearance) Assessed -Temperature (Ashlyn-wound Skin No Abnormality Appearance) (Pt Warm) -Tenderness on Palpation (Ashlyn-wound Yes Skin Appearance) -Ulcer Cleansing Soap and Water -Foul Odor after Cleansing No -Anesthetic Used 5% Lidocaine Gel Lower Limb Edema Present Yes Right Calf (cm) 34.6 Right Ankle (cm) 19.3 WC - Nurse 2 - General Ulcer CM Notes Start: 02/13/22 09:06 Freq: Status: Active Protocol: Activity Type Activity Date Activity User E-sign Co-sign Detail Recorded Client Recorded Date Recorded By Document 02/13/22 09:38 PL [id number] 02/13/22 09:40 PL 02/13/22 09:38 Wound Center Nurse 2 #4- R FOOT HALLUX AMP SITE post -op -Time 09:22 -Correct Patient Yes -Correct Side, Site, Position Yes -Correct Procedure Yes -Procedure Performed Yes -Type of Procedure Debridement -Clinical Debridement Subcutaneous -Tissue Removed Subcutaneous -Post Debridement (cm) - Length 2.0 -Post Debridement (cm) - Width 0.4 -Post Debridement (cm) - Depth 0.4 -Total Square (Post) (cm) 0.80 -Area of Debridement (cm) - Length 2.0 -Area of Debridement (cm) - Width 0.4 -Total Square (Area) (cm) 0.80 -Tunneling No -Undermining/Tunneling No -Circular Undermining No -Wound/Ulcer Outcome Not Healed -Ulcer Cleansing Rinsed/ Irrigated with Saline -Foul Odor after Cleansing No -Bioengineered Tissue Yes -Type of Bioengineered Tissue Epifix 18mm Disc -Expiration Date 11/09/26 -Product Lot Number [id number] -Percent Used 100 -Bleeding Controlled with Pressure -Treatment Response Procedure Tolerated Well -Debridement - Subq, 1st 20sq cm No -Apply Skin Sub - 1st 25 sq cm - Feet 1 -Epifix 18mm Disc 3 Pain Scale: 0-10 Numeric Is Patient Pain Free? Yes WC - Nurse 3 - General Ulcer D/C NN Start: 02/13/22 09:06 Freq: Status: Active Protocol: Activity Type Activity Date Activity User E-sign Co-sign Detail Recorded Client Recorded Date Recorded By Document 02/13/22 09:38 JONAH [id number] 02/13/22 09:38 RB 02/13/22 09:38 Wound Care Nurse 3 #4- R FOOT HALLUX AMP SITE post -op -Primary Dressing Covered/Secured with Dry Gauze,Dry Gauze & Roll Gauze,Secured with Tape Right -Other single layer tubigrip Treatment Response Procedure Tolerated Well Pain Scale: 0-10 Numeric Is Patient Pain Free? Yes WC - Visit Discharge Discharge Condition Stable Ambulatory Status Ambulatory Transportation Private Auto Medication Reconcilliation completed & No provided to patient/care provider Clinical Summary of Care Provided Yes Assessment/Plan Assessment/Plan (1) Ulcer of right foot with necrosis of bone: CODE(S): L97.514 - Non-pressure chronic ulcer of other part of right foot with necrosis of bone (2) Type 2 diabetes mellitus with diabetic polyneuropathy: CODE(S): E11.42 - Type 2 diabetes mellitus with diabetic polyneuropathy (3) Hallux limitus of right foot: CODE(S): M20.5X1 - Other deformities of toe(s) (acquired), right foot (4) Osteomyelitis: CODE(S): M86.9 - Osteomyelitis, unspecified QUALIFIERS: Osteomyelitis type: other acute Osteomyelitis location: foot Laterality: right Qualified Code(s): M86.171 - Other acute osteomyelitis, right ankle and foot (5) Other specified peripheral vascular diseases: CODE(S): I73.89 - Other specified peripheral vascular diseases (6) Delayed wound healing: CODE(S): T14.8XXD - Other injury of unspecified body region, subsequent encounter (7) 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 He was reassured there is no erythema or purulence to the foot. Debridement performed as noted Dressing: To keep secondary dressing clean, dry, and intact. Advance wound healing options: I recommend advancing healing product epi cord and later epi fix when this wound is more superficial to optimize healing. The indications and benefits, anticipated management and healing process was reviewed. This is medically necessary for limb salvage and he is at risk for further amputations, infections, delayed healing and even . Verbal consent was obtained and prior authorization was also obtained. This was applied according to standard protocol and was secured in place with a wound veil and Steri-Strips. 100% of the product was utilized. He tolerated this well. A secondary dressing was applied. He was advised to keep this clean, dry, and intact until follow-up next week. Offload: Heel weightbearing with surgical shoe. To use assistive device. I recommend fully offloading the entire foot transitioning to nonweightbearing status with a walker or knee roller. This is imperative for healing. It is noted he is unable to proceed forward with the recommended total contact cast. The Vascular: He had prior vascular surgery intervention at [facility] in [place] and also locally with Dr. Wells. On 11-27-2021 he had additional vascular surgery procedure performed; angioplasty of anterior tibial and peroneal arteries with improved foot flow. Host factors: He has uncontrolled diabetes with a self-reported A1c of over 9%. He understands this in combination with his known vascular disease make healing difficult. He is at risk for amputation and he is made this previously clear that he will not proceed forward with this. I recommend nutritional education to optimize healing. I advised him to avoid skipping meals. Advised him to eat a whole food balanced diet that not only focuses on adequate (not excessive) protein but also nutrient dense food intake. He defers global cmo referral. Resources were provided as reviewed them. This was discussed again today. Infection: Prior h/o cipro for PsA R foot osteo. recently worsened and updated cx now resistance to cipro. PICC placed, 6 weeks iv zosyn, stop date 12/13/21. Surgical clearance fragment from pathology was negative. Surgical clearance fragment from micro had pseudomonas growth. Additional oral cipro was recommended by ID specialist; to follow instructions as advised. ID physician communicated this plan. Note: [employer] speech recognition case making machine operator software was used to create portions of this document. Sound-alike and misspelled words, as well as other case making machine operator errors may be contained in the documentation.
[2022-02-20 09:40] VITALS: BP 156/71; PULSE 71; RESP 16; TEMP 36.6; BMI 28.8
--- NOTE | 2022-02-20 19:36 | PCM.WC.PN ---
History of Present Illness Date of Service: 02/20/22 Chief Complaint: right foot ulcer / prior first ray resection surgery History of Wound: This 62-year-old diabetic male was seen in clinic today. He underwent amputation of the right hallux at the first metatarsophalangeal joint on 09/25/2021. He now continues on oral antibiotics in the outpatient setting after he completed a course of IV antibiotics. He denies any nausea, vomiting, fever, chills, or other constitutional symptoms. Patient has a history of anxiety and depression secondary to dealing with his chronic hallux ulceration for the last year. He has completed a procedure with Dr. Wells for vascular surgery intervention on 11-27-2021; angioplasty of anterior tibial and peroneal arteries with improved foot flow. He is now status post first ray resection/amputation that was performed on 12-11-2021 at [facility]. He has tried to keep pressure off this site. He has reduced drainage. He wears a surgical shoe and is unable to do a total contact cast because he has to drive himself. He is ready to proceed forward with advanced wound healing product application today and did well last week. Progress of Wound: improving Objective Data Objective Data Vital Signs: Vital Signs Temp Pulse Resp BP O2 Del Method 97.9 F 71 16 156/71 H Room Air 02/20/22 09:40 02/20/22 09:40 02/20/22 09:40 02/20/22 09:40 02/20/22 09:40 Oxygen Delivery Method Room Air Weight: 86.183 kg Body Mass Index (BMI) 28.8 Physical Exam Const alert, oriented x3 and no apparent distress General Appearance: cooperative and comfortable HEENT normocephalic Lymph Lymphatic: no lymphedema noted Skin Wound Narrative: first ray resection site is stable with central updated sutures intact. the dorsal most aspect remains closed. no central tissue plug noted. no purulence, odor , erythema, streaking or eschar or necrosis noted. no bogginess or fluctuance on palpation to the surgical site. compartments remain soft to palpate. Mild serosanguineous drainage only noted and reduced ulcer size and drainage is appreciated Neuro oriented x3 and moves all extremities Debridement Note Debridement Note Wound debrided: right foot Wound Grade/Stage: 3 Type of Debridement: Excisional debridement Anesthesia Used: 4% Lidocaine Solution Depth: in the subcutaneous layer Percentage of wound debrided: 100 Instrument Used: #15 blade Tissue Removed: fibrous, devitalized subcutaneous, biofilm, slough Severity: Fat Layer Exposed Amount of bleeding with debridement: Mild Bleeding Controlled with: Pressure Patient tolerated procedure: Patient tolerated procedure well Post-Debridement Measurements and Additional Note: Post-Debridement Measurements/Treatment - Nurse 1 - General Ulcer Assessment Start: 02/13/22 09:06 Freq: Status: Active Protocol: REHAN Activity Type Activity Date Activity User E-sign Co-sign Detail Recorded Client Recorded Date Recorded By Document 02/13/22 09:06 [facility] [id number] 02/13/22 09:18 [facility] Document 02/20/22 09:40 [facility] [id number] 02/20/22 09:46 [facility] 02/13/22 02/20/22 09:06 09:40 - Today's Visit Information Type of service Follow-up Visit Follow-up Visit (Physician/SERVICE OPERATOR (Physician/SERVICE OPERATOR ) ) Arrival Mode Ambulatory, Ambulatory Crutches Transfer Assistance None None Patient Identification Verified (Name & Yes Yes ) Patient Requires Transmission-Based No No Precautions Height and Weight Body Mass Index (BMI) 28.8 28.8 BMI Classification Overweight Overweight Vital Signs Temperature (97.8 F-99.1 F) 97 F L 97.9 F Temperature Source Temporal Temporal Pulse Rate (60-100) 81 71 Pulse Location Monitor Monitor Respiratory Rate (12-18) 16 16 Respiratory rate source Observation Observation Oxygen Delivery Method Room Air Room Air Blood Pressure (90/60-120/80) 147/83 H 156/71 H Blood Pressure Mean (mm Hg) 104 99 Source Monitor Monitor Position Sitting Sitting Blood Pressure Location Right Arm History Since Last Visit- (Skip if this is Patient's initial visit) Have you changed medications since your No No last visit? Any new allergies or adverse reactions No No Had a fall/change in ADL's that may No No increase risk of falls Signs or symptoms of abuse and/or No No neglect since last visit Have you been in the hospital since your No No last visit? Has dressing in place as prescribed Yes Yes Has compression in place as prescribed Yes N/A Has offloadiing in place as prescribed Yes No Experienced any changes in pain level or No No management Left Footwear Regular Shoe Regular Shoe Right Footwear Surgical Shoe Surgical Shoe with pressure with pressure relief insole relief insole Pain Scale: 0-10 Numeric Is Patient Pain Free? Yes No WC - Nurse 1 - General Ulcer Measurement Start: 02/13/22 09:06 Freq: Status: Active Protocol: Activity Type Activity Date Activity User E-sign Co-sign Detail Recorded Client Recorded Date Recorded By Document 02/13/22 09:06 [facility] [id number] 02/13/22 09:18 [facility] Document 02/20/22 09:40 [facility] [id number] 02/20/22 09:46 BM 02/13/22 02/20/22 09:06 09:40 Wound Center Nurse 1 #4- R FOOT HALLUX AMP SITE post -op -Combined with other wound No No -Current Size (cm) - Length 2 2 -Current Size (cm) - Width 0.4 0.3 -Current Size (cm) - Depth 0.4 0.4 -Total Square Cm 0.8 0.6 -Date of Last Picture (Recall this 02/13/22 02/20/22 field) -Photo Taken Yes Yes -Epithelialization Small 1-33% Small 1-33% -Tunneling No No -Undermining/Tunneling No No -Circular Undermining No No -Exudate Amt Medium Medium -Exudate Type Serosanguineous Serosanguineous -Wound Margin Distinct, Distinct, Outline Outline Attached Attached -Granulation Amt Small (1-33%) Small (1-33%) -Granulation Quality Red Red -Slough/Fibrin Yes Yes -Necrosis Amt Large (67-100%) Large (67-100%) -Necrotic Tissue Type Adherent Slough Adherent Slough -Texture (Ashlyn-wound Skin Appearance) Assessed, Assessed, Scarring Scarring -Moisture (Ashlyn-wound Skin Appearance) Assessed,Dry/ Assessed,Dry/ Scaly Scaly -Color (Ashlyn-wound Skin Appearance) Assessed Assessed, Erythema -Temperature (Ashlyn-wound Skin No Abnormality No Abnormality Appearance) (Pt Warm) (Pt Warm) -Tenderness on Palpation (Ashlyn-wound Yes No Skin Appearance) -Ulcer Cleansing Soap and Water Soap and Water -Foul Odor after Cleansing No No -Anesthetic Used 5% Lidocaine Gel Lower Limb Edema Present Yes Right Calf (cm) 34.6 Right Ankle (cm) 19.3 WC - Nurse 2 - General Ulcer CM Notes Start: 02/13/22 09:06 Freq: Status: Active Protocol: Activity Type Activity Date Activity User E-sign Co-sign Detail Recorded Client Recorded Date Recorded By Document 02/13/22 09:38 PL [id number] 02/13/22 09:40 PL Document 02/20/22 10:00 NANETTE [id number] 02/20/22 10:06 NANETTE 02/13/22 02/20/22 09:38 10:00 Wound Center Nurse 2 #4- R FOOT HALLUX AMP SITE post -op -Time 10:00 -Correct Patient Yes Yes -Correct Side, Site, Position Yes Yes -Correct Procedure Yes Yes -Procedure Performed Yes Yes -Type of Procedure Debridement Debridement -Clinical Debridement Subcutaneous Subcutaneous -Tissue Removed Subcutaneous Subcutaneous -Post Debridement (cm) - Length 2.0 1.6 -Post Debridement (cm) - Width 0.4 0.3 -Post Debridement (cm) - Depth 0.4 0.5 -Total Square (Post) (cm) 0.80 0.48 -Area of Debridement (cm) - Length 2.0 1.6 -Area of Debridement (cm) - Width 0.4 0.3 -Total Square (Area) (cm) 0.80 0.48 -Tunneling No No -Undermining/Tunneling No No -Circular Undermining No No -Wound/Ulcer Outcome Not Healed Not Healed -Ulcer Cleansing Rinsed/ Rinsed/ Irrigated with Irrigated with Saline Saline -Foul Odor after Cleansing No No -Bioengineered Tissue Yes Yes -Type of Bioengineered Tissue Epifix 18mm Epifix 18mm Disc Disc -Expiration Date 11/09/26 11/09/26 -Product Lot Number [id number] -Percent Used 100 100 -Lot number of Saline Used [id number] -Bleeding Controlled with Pressure Pressure -Treatment Response Procedure Procedure Tolerated Well Tolerated Well -Offloading Yes -Type of Offloading Knee Walker -Debridement - Subq, 1st 20sq cm No No -Apply Skin Sub - 1st 25 sq cm - Feet 1 1 -Epifix 18mm Disc 3 3 Pain Scale: 0-10 Numeric Is Patient Pain Free? Yes Yes - Nurse 3 - General Ulcer D/C NN Start: 02/13/22 09:06 Freq: Status: Active Protocol: Activity Type Activity Date Activity User E-sign Co-sign Detail Recorded Client Recorded Date Recorded By Document 02/13/22 09:38 RB [id number] 02/13/22 09:38 RB Document 02/20/22 10:15 [facility] [id number] 02/20/22 10:16 BM 02/13/22 02/20/22 09:38 10:15 Wound Care Nurse 3 #4- R FOOT HALLUX AMP SITE post -op -Other Dressing epifix -Primary Dressing Covered/Secured with Dry Gauze,Dry Dry Gauze & Gauze & Roll Roll Gauze, Gauze,Secured Secured with with Tape Tape Right -Tubular Bandage Single Layer -Size of Tubigrip Used Size D -Size D ($) 1 -Other single layer tubigrip Treatment Response Procedure Procedure Tolerated Well Tolerated Well Pain Scale: 0-10 Numeric Is Patient Pain Free? Yes Yes WC - Visit Discharge Discharge Condition Stable Ambulatory Status Ambulatory Transportation Private Auto Medication Reconcilliation completed & No provided to patient/care provider Clinical Summary of Care Provided Yes Assessment/Plan Assessment/Plan (1) Ulcer of right foot with necrosis of bone: CODE(S): L97.514 - Non-pressure chronic ulcer of other part of right foot with necrosis of bone (2) Type 2 diabetes mellitus with diabetic polyneuropathy: CODE(S): E11.42 - Type 2 diabetes mellitus with diabetic polyneuropathy (3) Hallux limitus of right foot: CODE(S): M20.5X1 - Other deformities of toe(s) (acquired), right foot (4) Osteomyelitis: CODE(S): M86.9 - Osteomyelitis, unspecified QUALIFIERS: Osteomyelitis type: other acute Osteomyelitis location: foot Laterality: right Qualified Code(s): M86.171 - Other acute osteomyelitis, right ankle and foot (5) Other specified peripheral vascular diseases: CODE(S): I73.89 - Other specified peripheral vascular diseases (6) Delayed wound healing: CODE(S): T14.8XXD - Other injury of unspecified body region, subsequent encounter (7) 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 He was reassured there is no erythema or purulence to the foot. Debridement performed as noted Dressing: To keep secondary dressing clean, dry, and intact. Advance wound healing options: I recommend advancing healing product epi cord and later epi fix when this wound is more superficial to optimize healing. The indications and benefits, anticipated management and healing process was reviewed. This is medically necessary for limb salvage and he is at risk for further amputations, infections, delayed healing and even . Verbal consent was obtained and prior authorization was also obtained. This was applied according to standard protocol and was secured in place with a wound veil and Steri-Strips. 100% of the product was utilized. He tolerated this well. A secondary dressing was applied. He was advised to keep this clean, dry, and intact until follow-up next week. Offload: Heel weightbearing with surgical shoe. To use assistive device. I recommend fully offloading the entire foot transitioning to nonweightbearing status with a walker or knee roller. This is imperative for healing. It is noted he is unable to proceed forward with the recommended total contact cast. The Vascular: He had prior vascular surgery intervention at [facility] in [place] and also locally with Dr. Wells. On 11-27-2021 he had additional vascular surgery procedure performed; angioplasty of anterior tibial and peroneal arteries with improved foot flow. Host factors: He has uncontrolled diabetes with a self-reported A1c of over 9%. He understands this in combination with his known vascular disease make healing difficult. He is at risk for amputation and he is made this previously clear that he will not proceed forward with this. I recommend nutritional education to optimize healing. I advised him to avoid skipping meals. Advised him to eat a whole food balanced diet that not only focuses on adequate (not excessive) protein but also nutrient dense food intake. 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 Resources were provided as reviewed them. This was discussed again today. Infection: Prior h/o cipro for PsA R foot osteo. recently worsened and updated cx now resistance to cipro. PICC placed, 6 weeks iv zosyn, stop date 12/13/21. Surgical clearance fragment from pathology was negative. Surgical clearance fragment from micro had pseudomonas growth. Additional oral cipro was recommended by ID specialist; to follow instructions as advised. ID physician communicated this plan. Note: Dragon speech recognition fence erector supervisor software was used to create portions of this document. Sound-alike and misspelled words, as well as other fence erector supervisor errors may be contained in the documentation.
[2022-02-27 09:24] VITALS: BP 138/73; PULSE 79; RESP 18; TEMP 36.1; BMI 28.8
--- NOTE | 2022-02-27 10:13 | PCM.WC.PN ---
History of Present Illness Date of Service: 02/27/22 Chief Complaint: right foot ulcer / prior first ray resection surgery History of Wound: This 62-year-old diabetic male was seen in clinic today. He underwent amputation of the right hallux at the first metatarsophalangeal joint on 09/25/2021. He now continues on oral antibiotics in the outpatient setting after he completed a course of IV antibiotics. He denies any nausea, vomiting, fever, chills, or other constitutional symptoms. Patient has a history of anxiety and depression secondary to dealing with his chronic hallux ulceration for the last year. He has completed a procedure with Dr. Wells for vascular surgery intervention on 11-27-2021; angioplasty of anterior tibial and peroneal arteries with improved foot flow. He is now status post first ray resection/amputation that was performed on 12-11-2021 at [facility]. He has tried to keep pressure off this site. He has reduced drainage. He wears a surgical shoe and is unable to do a total contact cast because he has to drive himself. He is ready to proceed forward with advanced wound healing product application today and did well last week. Progress of Wound: improving Objective Data Objective Data Vital Signs: Vital Signs Temp Pulse Resp BP O2 Del Method 97 F L 79 18 138/73 H Room Air 02/27/22 09:24 02/27/22 09:24 02/27/22 09:24 02/27/22 09:24 02/20/22 09:40 Oxygen Delivery Method Room Air Weight: 86.183 kg Body Mass Index (BMI) 28.8 Physical Exam Const alert, oriented x3 and no apparent distress General Appearance: cooperative and comfortable HEENT normocephalic Lymph Lymphatic: no lymphedema noted Skin Wound Narrative: first ray resection site is stable with central updated sutures intact. the dorsal most aspect remains closed. no central tissue plug noted. no purulence, odor , erythema, streaking or eschar or necrosis noted. no bogginess or fluctuance on palpation to the surgical site. compartments remain soft to palpate. Mild serosanguineous drainage only noted and reduced ulcer size and drainage is appreciated Neuro oriented x3 and moves all extremities Debridement Note Debridement Note Wound debrided: right foot Wound Grade/Stage: 3 Type of Debridement: Excisional debridement Anesthesia Used: 4% Lidocaine Solution Depth: in the subcutaneous layer Percentage of wound debrided: 100 Instrument Used: #15 blade Tissue Removed: fibrous, devitalized subcutaneous, biofilm, slough Severity: Fat Layer Exposed Amount of bleeding with debridement: Mild Bleeding Controlled with: Pressure Patient tolerated procedure: Patient tolerated procedure well Post-Debridement Measurements and Additional Note: Post-Debridement Measurements/Treatment WC - Nurse 1 - General Ulcer Assessment Start: 02/13/22 09:06 Freq: Status: Active Protocol: REHAN Activity Type Activity Date Activity User E-sign Co-sign Detail Recorded Client Recorded Date Recorded By Document 02/13/22 09:06 [facility] [id number] 02/13/22 09:18 BM Document 02/20/22 09:40 BMF [id number] 02/20/22 09:46 BM Document 02/27/22 09:24 RB [id number] 02/27/22 09:35 RB 02/13/22 02/20/22 02/27/22 09:06 09:40 09:24 - Today's Visit Information Type of service Follow-up Visit Follow-up Visit Follow-up Visit (Physician/TONNAGE COMPILATION CLERK (Physician/TONNAGE COMPILATION CLERK (Physician/TONNAGE COMPILATION CLERK ) ) ) Arrival Mode Ambulatory, Ambulatory Ambulatory Crutches Transfer Assistance None None None Patient Identification Verified (Name & Yes Yes Yes ) Patient Requires Transmission-Based No No No Precautions Finger Stick Blood Sugar(mg/dl) (if 199 indicated): Blood Sugar Stated by Patient Height and Weight Body Mass Index (BMI) 28.8 28.8 28.8 BMI Classification Overweight Overweight Overweight Vital Signs Temperature (97.8 F-99.1 F) 97 F L 97.9 F 97 F L Temperature Source Temporal Temporal Temporal Pulse Rate (60-100) 81 71 79 Pulse Location Monitor Monitor Monitor Respiratory Rate (12-18) 16 16 18 Respiratory rate source Observation Observation Observation Oxygen Delivery Method Room Air Room Air Blood Pressure (90/60-120/80) 147/83 H 156/71 H 138/73 H Blood Pressure Mean (mm Hg) 104 99 94 Source Monitor Monitor Monitor Position Sitting Sitting Semi-Fowlers Blood Pressure Location Right Arm Left Arm History Since Last Visit- (Skip if this is Patient's initial visit) Have you changed medications since your No No No last visit? Any new allergies or adverse reactions No No No Had a fall/change in ADL's that may No No No increase risk of falls Signs or symptoms of abuse and/or No No No neglect since last visit Have you been in the hospital since your No No No last visit? Has dressing in place as prescribed Yes Yes Yes Has compression in place as prescribed Yes N/A Yes Has offloadiing in place as prescribed Yes No No Experienced any changes in pain level or No No No management Left Footwear Regular Shoe Regular Shoe Regular Shoe Right Footwear Surgical Shoe Surgical Shoe Surgical Shoe with pressure with pressure with pressure relief insole relief insole relief insole Pain Scale: 0-10 Numeric Is Patient Pain Free? Yes No Yes WC - Nurse 1 - General Ulcer Measurement Start: 02/13/22 09:06 Freq: Status: Active Protocol: Activity Type Activity Date Activity User E-sign Co-sign Detail Recorded Client Recorded Date Recorded By Document 02/13/22 09:06 [facility] [id number] 02/13/22 09:18 [facility] Document 02/20/22 09:40 [facility] [id number] 02/20/22 09:46 [facility] Document 02/27/22 09:24 [id number] 02/27/22 09:35 RB 02/13/22 02/20/22 02/27/22 09:06 09:40 09:24 Wound Center Nurse 1 #4- R FOOT HALLUX AMP SITE post -op -Combined with other wound No No No -Current Size (cm) - Length 2 2 2 -Current Size (cm) - Width 0.4 0.3 0.6 -Current Size (cm) - Depth 0.4 0.4 0.4 -Total Square Cm 0.8 0.6 1.2 -Date of Last Picture (Recall this 02/13/22 02/20/22 field) -Photo Taken Yes Yes Yes -Epithelialization Small 1-33% Small 1-33% -Tunneling No No No -Undermining/Tunneling No No No -Circular Undermining No No No -Exudate Amt Medium Medium Medium -Exudate Type Serosanguineous Serosanguineous Serosanguineous -Wound Margin Distinct, Distinct, Distinct, Outline Outline Outline Attached Attached Attached -Granulation Amt Small (1-33%) Small (1-33%) Medium (34-66%) -Granulation Quality Red Red [place] -Slough/Fibrin Yes Yes Yes -Necrosis Amt Large (67-100%) Large (67-100%) Small (1-33%) -Necrotic Tissue Type Adherent Slough Adherent Slough Adherent Slough -Structure Exposed N/A -Texture (Ashlyn-wound Skin Appearance) Assessed, Assessed, Assessed, Scarring Scarring Scarring -Moisture (Ashlyn-wound Skin Appearance) Assessed,Dry/ Assessed,Dry/ Assessed Scaly Scaly -Color (Ashlyn-wound Skin Appearance) Assessed Assessed, Assessed Erythema -Temperature (Ashlyn-wound Skin No Abnormality No Abnormality No Abnormality Appearance) (Pt Warm) (Pt Warm) (Pt Warm) -Tenderness on Palpation (Ashlyn-wound Yes No No Skin Appearance) -Ulcer Cleansing Soap and Water Soap and Water Wound Cleanser -Foul Odor after Cleansing No No No -Anesthetic Used 5% Lidocaine Gel Lower Limb Edema Present Yes Yes Right Calf (cm) 34.6 38 Right Ankle (cm) 19.3 20 WC - Nurse 2 - General Ulcer CM Notes Start: 02/13/22 09:06 Freq: Status: Active Protocol: Activity Type Activity Date Activity User E-sign Co-sign Detail Recorded Client Recorded Date Recorded By Document 02/13/22 09:38 HELEN [id number] 02/13/22 09:40 PL Document 02/20/22 10:00 [id number] 02/20/22 10:06 02/13/22 02/20/22 09:38 10:00 Wound Center Nurse 2 #4- R FOOT HALLUX AMP SITE post -op -Time : 10:00 -Correct Patient Yes Yes -Correct Side, Site, Position Yes Yes -Correct Procedure Yes Yes -Procedure Performed Yes Yes -Type of Procedure Debridement Debridement -Clinical Debridement Subcutaneous Subcutaneous -Tissue Removed Subcutaneous Subcutaneous -Post Debridement (cm) - Length 2.0 1.6 -Post Debridement (cm) - Width 0.4 0.3 -Post Debridement (cm) - Depth 0.4 0.5 -Total Square (Post) (cm) 0.80 0.48 -Area of Debridement (cm) - Length 2.0 1.6 -Area of Debridement (cm) - Width 0.4 0.3 -Total Square (Area) (cm) 0.80 0.48 -Tunneling No No -Undermining/Tunneling No No -Circular Undermining No No -Wound/Ulcer Outcome Not Healed Not Healed -Ulcer Cleansing Rinsed/ Rinsed/ Irrigated with Irrigated with Saline Saline -Foul Odor after Cleansing No No -Bioengineered Tissue Yes Yes -Type of Bioengineered Tissue Epifix 18mm Epifix 18mm Disc Disc -Expiration Date 11/09/26 11/09/26 -Product Lot Number [id number] -Percent Used 100 100 -Lot number of Saline Used [id number] -Bleeding Controlled with Pressure Pressure -Treatment Response Procedure Procedure Tolerated Well Tolerated Well -Offloading Yes -Type of Offloading Knee Walker -Debridement - Subq, 1st 20sq cm No No -Apply Skin Sub - 1st 25 sq cm - Feet 1 1 -Epifix 18mm Disc 3 3 Pain Scale: 0-10 Numeric Is Patient Pain Free? Yes Yes - Nurse 3 - General Ulcer D/C NN Start: 02/13/22 09:06 Freq: Status: Active Protocol: Activity Type Activity Date Activity User E-sign Co-sign Detail Recorded Client Recorded Date Recorded By Document 02/13/22 09:38 [id number] 02/13/22 09:38 Document 02/20/22 10:15 [facility] [id number] 02/20/22 10:16 [facility] Document 02/27/22 09:55 [id number] 02/27/22 09:56 RB 02/13/22 02/20/22 02/27/22 09:38 10:15 09:55 Wound Care Nurse 3 #4- R FOOT HALLUX AMP SITE post -op -Other Dressing epifix -Primary Dressing Covered/Secured with Dry Gauze,Dry Dry Gauze & Dry Gauze,Dry Gauze & Roll Roll Gauze, Gauze & Roll Gauze,Secured Secured with Gauze,Secured with Tape Tape with Tape Right -Tubular Bandage Single Layer -Size of Tubigrip Used Size D -Size D ($) 1 -Other single layer single layer tubigrip tubigrip Treatment Response Procedure Procedure Procedure Tolerated Well Tolerated Well Tolerated Well Pain Scale: 0-10 Numeric Is Patient Pain Free? Yes Yes Yes WC - Visit Discharge Discharge Condition Stable Stable Ambulatory Status Ambulatory Ambulatory Transportation Private Auto Private Auto Medication Reconcilliation completed & No No provided to patient/care provider Clinical Summary of Care Provided Yes Yes Assessment/Plan Assessment/Plan (1) Ulcer of right foot with necrosis of bone: CODE(S): L97.514 - Non-pressure chronic ulcer of other part of right foot with necrosis of bone (2) Type 2 diabetes mellitus with diabetic polyneuropathy: CODE(S): E11.42 - Type 2 diabetes mellitus with diabetic polyneuropathy (3) Hallux limitus of right foot: CODE(S): M20.5X1 - Other deformities of toe(s) (acquired), right foot (4) Osteomyelitis: CODE(S): M86.9 - Osteomyelitis, unspecified QUALIFIERS: Osteomyelitis type: other acute Osteomyelitis location: foot Laterality: right Qualified Code(s): M86.171 - Other acute osteomyelitis, right ankle and foot (5) Other specified peripheral vascular diseases: CODE(S): I73.89 - Other specified peripheral vascular diseases (6) Delayed wound healing: CODE(S): T14.8XXD - Other injury of unspecified body region, subsequent encounter (7) 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 He was reassured there is no erythema or purulence to the foot. Debridement performed as noted Dressing: To keep secondary dressing clean, dry, and intact. Advance wound healing options: I recommend advancing healing product epi cord and later epi fix when this wound is more superficial to optimize healing. The indications and benefits, anticipated management and healing process was reviewed. This is medically necessary for limb salvage and he is at risk for further amputations, infections, delayed healing and even . Verbal consent was obtained and prior authorization was also obtained. This was applied according to standard protocol and was secured in place with a wound veil and Steri-Strips. 100% of the product was utilized. He tolerated this well. A secondary dressing was applied. He was advised to keep this clean, dry, and intact until follow-up next week. Offload: Heel weightbearing with surgical shoe. To use assistive device. I recommend fully offloading the entire foot transitioning to nonweightbearing status with a walker or knee roller. This is imperative for healing. It is noted he is unable to proceed forward with the recommended total contact cast. The Vascular: He had prior vascular surgery intervention at [facility] in [place] and also locally with Dr. Wells. On 11-27-2021 he had additional vascular surgery procedure performed; angioplasty of anterior tibial and peroneal arteries with improved foot flow. Host factors: He has uncontrolled diabetes with a self-reported A1c of over 9%. He understands this in combination with his known vascular disease make healing difficult. He is at risk for amputation and he is made this previously clear that he will not proceed forward with this. I recommend nutritional education to optimize healing. I advised him to avoid skipping meals. Advised him to eat a whole food balanced diet that not only focuses on adequate (not excessive) protein but also nutrient dense food intake. 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 Resources were provided as reviewed them. This was discussed again today. Infection: Prior h/o cipro for PsA R foot osteo. recently worsened and updated cx now resistance to cipro. PICC placed, 6 weeks iv zosyn, stop date 12/13/21. Surgical clearance fragment from pathology was negative. Surgical clearance fragment from micro had pseudomonas growth. Additional oral cipro was recommended by ID specialist; to follow instructions as advised. ID physician communicated this plan. Note: [employer] speech recognition shift superintendent caustic cresylate software was used to create portions of this document. Sound-alike and misspelled words, as well as other shift superintendent caustic cresylate errors may be contained in the documentation.
[2022-03-06 11:11] VITALS: BP 124/70; PULSE 66; RESP 18; TEMP 36; BMI 28.8
--- NOTE | 2022-03-06 13:11 | PCM.WC.PN ---
History of Present Illness Date of Service: 03/06/22 Chief Complaint: right foot ulcer / prior first ray resection surgery History of Wound: This 62-year-old diabetic male was seen in clinic today. He underwent amputation of the right hallux at the first metatarsophalangeal joint on 09/25/2021. He now continues on oral antibiotics in the outpatient setting after he completed a course of IV antibiotics. He denies any nausea, vomiting, fever, chills, or other constitutional symptoms. Patient has a history of anxiety and depression secondary to dealing with his chronic hallux ulceration for the last year. He has completed a procedure with Dr. Wells for vascular surgery intervention on 11-27-2021; angioplasty of anterior tibial and peroneal arteries with improved foot flow. He is now status post first ray resection/amputation that was performed on 12-11-2021 at [facility]. He has tried to keep pressure off this site. He has reduced drainage. He wears a surgical shoe and is unable to do a total contact cast because he has to drive himself. He is ready to proceed forward with advanced wound healing product application today and did well last week. Progress of Wound: improving Objective Data Objective Data Vital Signs: Vital Signs Temp Pulse Resp BP O2 Del Method 96.8 F L 66 18 124/70 H Room Air 03/06/22 11:11 03/06/22 11:11 03/06/22 11:11 03/06/22 11:11 02/20/22 09:40 Oxygen Delivery Method Room Air Weight: 86.183 kg Body Mass Index (BMI) 28.8 Physical Exam Const alert, oriented x3 and no apparent distress General Appearance: cooperative and comfortable HEENT normocephalic Lymph Lymphatic: no lymphedema noted Skin Wound Narrative: first ray resection site is stable with central updated sutures intact. the dorsal most aspect remains closed. no central tissue plug noted. no purulence, odor , erythema, streaking or eschar or necrosis noted. no bogginess or fluctuance on palpation to the surgical site. compartments remain soft to palpate. Mild serosanguineous drainage only noted and reduced ulcer size and drainage is appreciated Neuro oriented x3 and moves all extremities Debridement Note Debridement Note Wound debrided: right foot Wound Grade/Stage: 3 Type of Debridement: Excisional debridement Anesthesia Used: 4% Lidocaine Solution Depth: in the subcutaneous layer Percentage of wound debrided: 100 Instrument Used: #15 blade Tissue Removed: fibrous, devitalized subcutaneous, biofilm, slough Severity: Fat Layer Exposed Amount of bleeding with debridement: Mild Bleeding Controlled with: Pressure Patient tolerated procedure: Patient tolerated procedure well Post-Debridement Measurements and Additional Note: Post-Debridement Measurements/Treatment - Nurse 1 - General Ulcer Assessment Start: 02/13/22 09:06 Freq: Status: Active Protocol: REHAN Activity Type Activity Date Activity User E-sign Co-sign Detail Recorded Client Recorded Date Recorded By Document 02/13/22 09:06 [facility] [id number] 02/13/22 09:18 [facility] Document 02/20/22 09:40 BM [id number] 02/20/22 09:46 BM Document 02/27/22 09:24 [id number] 02/27/22 09:35 RB Document 03/06/22 11:11 RB [id number] 03/06/22 11:19 RB 02/13/22 02/20/22 02/27/22 09:06 09:40 09:24 - Today's Visit Information Type of service Follow-up Visit Follow-up Visit Follow-up Visit (Physician/SALES WAREHOUSE DRIVER (Physician/SALES WAREHOUSE DRIVER (Physician/SALES WAREHOUSE DRIVER ) ) ) Arrival Mode Ambulatory, Ambulatory Ambulatory Crutches Transfer Assistance None None None Patient Identification Verified (Name & Yes Yes Yes ) Patient Requires Transmission-Based No No No Precautions Finger Stick Blood Sugar(mg/dl) (if 199 indicated): Blood Sugar Stated by Patient Height and Weight Body Mass Index (BMI) 28.8 28.8 28.8 BMI Classification Overweight Overweight Overweight Vital Signs Temperature (97.8 F-99.1 F) 97 F L 97.9 F 97 F L Temperature Source Temporal Temporal Temporal Pulse Rate (60-100) 81 71 79 Pulse Location Monitor Monitor Monitor Respiratory Rate (12-18) 16 16 18 Respiratory rate source Observation Observation Observation Oxygen Delivery Method Room Air Room Air Blood Pressure (90/60-120/80) 147/83 H 156/71 H 138/73 H Blood Pressure Mean (mm Hg) 104 99 94 Source Monitor Monitor Monitor Position Sitting Sitting Semi-Fowlers Blood Pressure Location Right Arm Left Arm History Since Last Visit- (Skip if this is Patient's initial visit) Have you changed medications since your No No No last visit? Any new allergies or adverse reactions No No No Had a fall/change in ADL's that may No No No increase risk of falls Signs or symptoms of abuse and/or No No No neglect since last visit Have you been in the hospital since your No No No last visit? Has dressing in place as prescribed Yes Yes Yes Has compression in place as prescribed Yes N/A Yes Has offloadiing in place as prescribed Yes No No Experienced any changes in pain level or No No No management Left Footwear Regular Shoe Regular Shoe Regular Shoe Right Footwear Surgical Shoe Surgical Shoe Surgical Shoe with pressure with pressure with pressure relief insole relief insole relief insole Pain Scale: 0-10 Numeric Is Patient Pain Free? Yes No Yes 03/06/22 11:11 WC - Today's Visit Information Type of service Follow-up Visit (Physician/SALES WAREHOUSE DRIVER ) Arrival Mode Ambulatory Transfer Assistance None Patient Identification Verified (Name & Yes ) Patient Requires Transmission-Based No Precautions Finger Stick Blood Sugar(mg/dl) (if indicated): Blood Sugar Height and Weight Body Mass Index (BMI) 28.8 BMI Classification Overweight Vital Signs Temperature (97.8 F-99.1 F) 96.8 F L Temperature Source Temporal Pulse Rate (60-100) 66 Pulse Location Monitor Respiratory Rate (12-18) 18 Respiratory rate source Observation Oxygen Delivery Method Blood Pressure (90/60-120/80) 124/70 H Blood Pressure Mean (mm Hg) 88 Source Monitor Position Semi-Fowlers Blood Pressure Location Left Arm History Since Last Visit- (Skip if this is Patient's initial visit) Have you changed medications since your No last visit? Any new allergies or adverse reactions No Had a fall/change in ADL's that may No increase risk of falls Signs or symptoms of abuse and/or No neglect since last visit Have you been in the hospital since your No last visit? Has dressing in place as prescribed Yes Has compression in place as prescribed Yes Has offloadiing in place as prescribed Yes Experienced any changes in pain level or No management Left Footwear Right Footwear Pain Scale: 0-10 Numeric Is Patient Pain Free? Yes - Nurse 1 - General Ulcer Measurement Start: 02/13/22 09:06 Freq: Status: Active Protocol: Activity Type Activity Date Activity User E-sign Co-sign Detail Recorded Client Recorded Date Recorded By Document 02/13/22 09:06 [facility] [id number] 02/13/22 09:18 [facility] Document 02/20/22 09:40 [facility] [id number] 02/20/22 09:46 [facility] Document 02/27/22 09:24 RB [id number] 02/27/22 09:35 RB Document 03/06/22 11:11 RB [id number] 03/06/22 11:19 RB 02/13/22 02/20/22 02/27/22 09:06 09:40 09:24 Wound Center Nurse 1 #4- R FOOT HALLUX AMP SITE post -op -Combined with other wound No No No -Current Size (cm) - Length 2 2 2 -Current Size (cm) - Width 0.4 0.3 0.6 -Current Size (cm) - Depth 0.4 0.4 0.4 -Total Square Cm 0.8 0.6 1.2 -Date of Last Picture (Recall this 02/13/22 02/20/22 field) -Photo Taken Yes Yes Yes -Epithelialization Small 1-33% Small 1-33% -Tunneling No No No -Undermining/Tunneling No No No -Circular Undermining No No No -Exudate Amt Medium Medium Medium -Exudate Type Serosanguineous Serosanguineous Serosanguineous -Wound Margin Distinct, Distinct, Distinct, Outline Outline Outline Attached Attached Attached -Granulation Amt Small (1-33%) Small (1-33%) Medium (34-66%) -Granulation Quality Red Red [place] -Slough/Fibrin Yes Yes Yes -Necrosis Amt Large (67-100%) Large (67-100%) Small (1-33%) -Necrotic Tissue Type Adherent Slough Adherent Slough Adherent Slough -Structure Exposed N/A -Texture (Ashlyn-wound Skin Appearance) Assessed, Assessed, Assessed, Scarring Scarring Scarring -Moisture (Ashlyn-wound Skin Appearance) Assessed,Dry/ Assessed,Dry/ Assessed Scaly Scaly -Color (Ashlyn-wound Skin Appearance) Assessed Assessed, Assessed Erythema -Temperature (Ashlyn-wound Skin No Abnormality No Abnormality No Abnormality Appearance) (Pt Warm) (Pt Warm) (Pt Warm) -Tenderness on Palpation (Ashlyn-wound Yes No No Skin Appearance) -Ulcer Cleansing Soap and Water Soap and Water Wound Cleanser -Foul Odor after Cleansing No No No -Anesthetic Used 5% Lidocaine Gel Lower Limb Edema Present Yes Yes Right Calf (cm) 34.6 38 Right Ankle (cm) 19.3 20 03/06/22 11:11 Wound Center Nurse 1 #4- R FOOT HALLUX AMP SITE post -op -Combined with other wound No -Current Size (cm) - Length 1.8 -Current Size (cm) - Width 0.4 -Current Size (cm) - Depth 0.4 -Total Square Cm 0.72 -Date of Last Picture (Recall this field) -Photo Taken Yes -Epithelialization -Tunneling No -Undermining/Tunneling No -Circular Undermining No -Exudate Amt Large -Exudate Type Serosanguineous -Wound Margin Distinct, Outline Attached -Granulation Amt Large (67-100%) -Granulation Quality [place] -Slough/Fibrin Yes -Necrosis Amt Small (1-33%) -Necrotic Tissue Type Adherent Slough -Structure Exposed N/A -Texture (Ashlyn-wound Skin Appearance) Assessed, Scarring -Moisture (Ashlyn-wound Skin Appearance) Assessed -Color (Ashlyn-wound Skin Appearance) Assessed -Temperature (Ashlyn-wound Skin No Abnormality Appearance) (Pt Warm) -Tenderness on Palpation (Ashlyn-wound Skin Appearance) -Ulcer Cleansing Soap and Water -Foul Odor after Cleansing No -Anesthetic Used 5% Lidocaine Gel Lower Limb Edema Present Yes Right Calf (cm) 35 Right Ankle (cm) 19.5 WC - Nurse 2 - General Ulcer CM Notes Start: 02/13/22 09:06 Freq: Status: Active Protocol: Activity Type Activity Date Activity User E-sign Co-sign Detail Recorded Client Recorded Date Recorded By Document 02/13/22 09:38 PL [id number] 02/13/22 09:40 PL Document 02/20/22 10:00 [id number] 02/20/22 10:06 JF Document 02/27/22 10:12 PL [id number] 02/27/22 10:14 PL Document 03/06/22 11:38 [id number] 03/06/22 11:43 02/13/22 02/20/22 02/27/22 09:38 10:00 10:12 Wound Center Nurse 2 #4- R FOOT HALLUX AMP SITE post -op -Time 09:22 10:00 09:41 -Correct Patient Yes Yes Yes -Correct Side, Site, Position Yes Yes Yes -Correct Procedure Yes Yes Yes -Procedure Performed Yes Yes Yes -Type of Procedure Debridement Debridement Debridement -Clinical Debridement Subcutaneous Subcutaneous Subcutaneous -Tissue Removed Subcutaneous Subcutaneous Subcutaneous -Post Debridement (cm) - Length 2.0 1.6 2.0 -Post Debridement (cm) - Width 0.4 0.3 0.6 -Post Debridement (cm) - Depth 0.4 0.5 0.4 -Total Square (Post) (cm) 0.80 0.48 1.20 -Area of Debridement (cm) - Length 2.0 1.6 2.0 -Area of Debridement (cm) - Width 0.4 0.3 0.6 -Total Square (Area) (cm) 0.80 0.48 1.20 -Tunneling No No No -Undermining/Tunneling No No No -Circular Undermining No No No -Wound/Ulcer Outcome Not Healed Not Healed Not Healed -Ulcer Cleansing Rinsed/ Rinsed/ Rinsed/ Irrigated with Irrigated with Irrigated with Saline Saline Saline -Foul Odor after Cleansing No No No -Bioengineered Tissue Yes Yes Yes -Type of Bioengineered Tissue Epifix 18mm Epifix 18mm Epifix 18mm Disc Disc Disc -Expiration Date 11/09/26 11/09/26 12/09/26 -Product Lot Number [id number] -Percent Used 100 100 100 -Lot number of Saline Used [id number] -Bleeding Controlled with Pressure Pressure Pressure -Treatment Response Procedure Procedure Procedure Tolerated Well Tolerated Well Tolerated Well -Offloading Yes -Type of Offloading Knee Walker -Debridement - Subq, 1st 20sq cm No No No -Apply Skin Sub - 1st 25 sq cm - Feet 1 1 1 -Epifix 18mm Disc 3 3 3 Pain Scale: 0-10 Numeric Is Patient Pain Free? Yes Yes Yes 03/06/22 11:38 Wound Center Nurse 2 #4- R FOOT HALLUX AMP SITE post -op -Time 11:38 -Correct Patient Yes -Correct Side, Site, Position Yes -Correct Procedure Yes -Procedure Performed Yes -Type of Procedure Debridement -Clinical Debridement Subcutaneous -Tissue Removed Subcutaneous -Post Debridement (cm) - Length 1.8 -Post Debridement (cm) - Width 0.4 -Post Debridement (cm) - Depth 0.2 -Total Square (Post) (cm) 0.72 -Area of Debridement (cm) - Length 1.8 -Area of Debridement (cm) - Width 0.4 -Total Square (Area) (cm) 0.72 -Tunneling No -Undermining/Tunneling No -Circular Undermining No -Wound/Ulcer Outcome Not Healed -Ulcer Cleansing Rinsed/ Irrigated with Saline -Foul Odor after Cleansing No -Bioengineered Tissue Yes -Type of Bioengineered Tissue Epifix 18mm Disc -Expiration Date 12/09/26 -Product Lot Number [id number] -Percent Used 100 -Lot number of Saline Used [id number] -Bleeding Controlled with Pressure -Treatment Response Procedure Tolerated Well -Offloading Yes -Type of Offloading Surgical Shoe -Debridement - Subq, 1st 20sq cm No -Apply Skin Sub - 1st 25 sq cm - Feet 1 -Epifix 18mm Disc 3 Pain Scale: 0-10 Numeric Is Patient Pain Free? Yes WC - Nurse 3 - General Ulcer D/C NN Start: 02/13/22 09:06 Freq: Status: Active Protocol: Activity Type Activity Date Activity User E-sign Co-sign Detail Recorded Client Recorded Date Recorded By Document 02/13/22 09:38 RB [id number] 02/13/22 09:38 RB Document 02/20/22 10:15 [facility] [id number] 02/20/22 10:16 [facility] Document 02/27/22 09:55 RB [id number] 02/27/22 09:56 RB Document 03/06/22 12:10 DL [id number] 03/06/22 12:11 DL 02/13/22 02/20/22 02/27/22 09:38 10:15 09:55 Wound Care Nurse 3 #4- R FOOT HALLUX AMP SITE post -op -Ulcer Cleansing -Foul Odor after Cleansing -Other Dressing epifix -Primary Dressing Covered/Secured with Dry Gauze,Dry Dry Gauze & Dry Gauze,Dry Gauze & Roll Roll Gauze, Gauze & Roll Gauze,Secured Secured with Gauze,Secured with Tape Tape with Tape -Other Covering Right -Tubular Bandage Single Layer -Size of Tubigrip Used Size D -Size D ($) 1 -Other single layer single layer tubigrip tubigrip Treatment Response Procedure Procedure Procedure Tolerated Well Tolerated Well Tolerated Well Pain Scale: 0-10 Numeric Is Patient Pain Free? Yes Yes Yes WC - Visit Discharge Discharge Condition Stable Stable Ambulatory Status Ambulatory Ambulatory Transportation Private Auto Private Auto Medication Reconcilliation completed & No No provided to patient/care provider Clinical Summary of Care Provided Yes Yes 03/06/22 12:10 Wound Care Nurse 3 #4- R FOOT HALLUX AMP SITE post -op -Ulcer Cleansing Rinsed/ Irrigated with Saline -Foul Odor after Cleansing No -Other Dressing hydrogel -Primary Dressing Covered/Secured with Dry Gauze & Roll Gauze, Secured with Tape -Other Covering tubigrip Right -Tubular Bandage -Size of Tubigrip Used -Size D ($) -Other Treatment Response Procedure Tolerated Well Pain Scale: 0-10 Numeric Is Patient Pain Free? Yes WC - Visit Discharge Discharge Condition Stable Ambulatory Status Ambulatory Transportation Private Auto Medication Reconcilliation completed & provided to patient/care provider Clinical Summary of Care Provided Assessment/Plan Assessment/Plan (1) Ulcer of right foot with necrosis of bone: CODE(S): L97.514 - Non-pressure chronic ulcer of other part of right foot with necrosis of bone (2) Type 2 diabetes mellitus with diabetic polyneuropathy: CODE(S): E11.42 - Type 2 diabetes mellitus with diabetic polyneuropathy (3) Hallux limitus of right foot: CODE(S): M20.5X1 - Other deformities of toe(s) (acquired), right foot (4) Osteomyelitis: CODE(S): M86.9 - Osteomyelitis, unspecified QUALIFIERS: Osteomyelitis type: other acute Osteomyelitis location: foot Laterality: right Qualified Code(s): M86.171 - Other acute osteomyelitis, right ankle and foot (5) Other specified peripheral vascular diseases: CODE(S): I73.89 - Other specified peripheral vascular diseases (6) Delayed wound healing: CODE(S): T14.8XXD - Other injury of unspecified body region, subsequent encounter (7) 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 He was reassured there is no erythema or purulence to the foot. Debridement performed as noted Dressing: To keep secondary dressing clean, dry, and intact. Advance wound healing options: I recommend advancing healing product epi cord and later epi fix when this wound is more superficial to optimize healing. The indications and benefits, anticipated management and healing process was reviewed. This is medically necessary for limb salvage and he is at risk for further amputations, infections, delayed healing and even . Verbal consent was obtained and prior authorization was also obtained. This was applied according to standard protocol and was secured in place with a wound veil and Steri-Strips. 100% of the product was utilized. He tolerated this well. A secondary dressing was applied. He was advised to keep this clean, dry, and intact until follow-up next week. Offload: Heel weightbearing with surgical shoe. To use assistive device. I recommend fully offloading the entire foot transitioning to nonweightbearing status with a walker or knee roller. This is imperative for healing. It is noted he is unable to proceed forward with the recommended total contact cast. The Vascular: He had prior vascular surgery intervention at [facility] in [place] and also locally with Dr. Wells. On 11-27-2021 he had additional vascular surgery procedure performed; angioplasty of anterior tibial and peroneal arteries with improved foot flow. Host factors: He has uncontrolled diabetes with a self-reported A1c of over 9%. He understands this in combination with his known vascular disease make healing difficult. He is at risk for amputation and he is made this previously clear that he will not proceed forward with this. I recommend nutritional education to optimize healing. I advised him to avoid skipping meals. Advised him to eat a whole food balanced diet that not only focuses on adequate (not excessive) protein but also nutrient dense food intake. 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 Resources were provided as reviewed them. This was discussed again today. Infection: Prior h/o cipro for PsA R foot osteo. recently worsened and updated cx now resistance to cipro. PICC placed, 6 weeks iv zosyn, stop date 12/13/21. Surgical clearance fragment from pathology was negative. Surgical clearance fragment from micro had pseudomonas growth. Additional oral cipro was recommended by ID specialist; to follow instructions as advised. ID physician communicated this plan. Note: i[employer] speech recognition refrigerating oiler software was used to create portions of this document. Sound-alike and misspelled words, as well as other refrigerating oiler errors may be contained in the documentation.
== END 2022-03-10 23:59 | disposition home or self-care (01) ==
LOC: WC 11:30
PROVIDERS: PCP Family Medicine; Visit Provider Podiatrist
DX: E11.621 Type 2 diabetes mellitus with foot ulcer (principal); E11.51 Type 2 diabetes mellitus with diabetic peripheral angiopathy without gangrene; L97.512 Non-pressure chronic ulcer of other part of right foot with fat layer exposed; M86.171 Other acute osteomyelitis, right ankle and foot; E11.42 Type 2 diabetes mellitus with diabetic polyneuropathy; E11.69 Type 2 diabetes mellitus with other specified complication
CPT/HCPCS: 15275; Q4186

== ENCOUNTER 2022-04-10 10:45 | Outpatient (RCR) | payer BC, SELFPAY ==
[2022-03-11 00:16] VITALS: BP 124/70; PULSE 66; RESP 18; TEMP 36; BMI 28.8
[2022-03-13 08:56] VITALS: BP 151/94; PULSE 78; RESP 18; TEMP 35.6; BMI 28.8
--- NOTE | 2022-03-13 15:08 | PCM.WC.PN ---
History of Present Illness Date of Service: 03/13/22 Chief Complaint: right foot ulcer / prior first ray resection surgery History of Wound: This 62-year-old diabetic male was seen in clinic today. He underwent amputation of the right hallux at the first metatarsophalangeal joint on 09/25/2021. He now continues on oral antibiotics in the outpatient setting after he completed a course of IV antibiotics. He denies any nausea, vomiting, fever, chills, or other constitutional symptoms. Patient has a history of anxiety and depression secondary to dealing with his chronic hallux ulceration for the last year. He has completed a procedure with Dr. Wells for vascular surgery intervention on 11-27-2021; angioplasty of anterior tibial and peroneal arteries with improved foot flow. He is now status post first ray resection/amputation that was performed on 12-11-2021 at [facility]. He has tried to keep pressure off this site. He has reduced drainage. He wears a surgical shoe and is unable to do a total contact cast because he has to drive himself. He is ready to proceed forward with advanced wound healing product application today and did well last week. Progress of Wound: Improving Objective Data Objective Data Vital Signs: Vital Signs Temp Pulse Resp BP 96.1 F L 78 18 151/94 H 03/13/22 08:56 03/13/22 08:56 03/13/22 08:56 03/13/22 08:56 Weight: 86.183 kg Body Mass Index (BMI) 28.8 Physical Exam Const alert, oriented x3 and no apparent distress Lymph Lymphatic: no lymphedema noted Skin Wound Narrative: first ray resection site is stable with central updated sutures intact. the dorsal most aspect remains closed. no central tissue plug noted. no purulence, odor , erythema, streaking or eschar or necrosis noted. no bogginess or fluctuance on palpation to the surgical site. compartments remain soft to palpate. Mild serosanguineous drainage only noted and reduced ulcer size and drainage is appreciated Debridement Note Debridement Note Wound debrided: right foot Wound Grade/Stage: 3 Type of Debridement: Excisional debridement Anesthesia Used: 4% Lidocaine Solution Depth: in the subcutaneous layer Percentage of wound debrided: 100 Instrument Used: #15 blade Tissue Removed: fibrous, devitalized subcutaneous, biofilm, slough Severity: Fat Layer Exposed Amount of bleeding with debridement: Mild Bleeding Controlled with: Pressure Patient tolerated procedure: Patient tolerated procedure well Post-Debridement Measurements and Additional Note: Post-Debridement Measurements/Treatment - Nurse 1 - General Ulcer Assessment Start: 03/13/22 08:55 Freq: Status: Active Protocol: REHAN Activity Type Activity Date Activity User E-sign Co-sign Detail Recorded Client Recorded Date Recorded By Document 03/13/22 08:56 [facility] [id number] 03/13/22 09:00 [facility] 03/13/22 08:56 WC - Today's Visit Information Type of service Follow-up Visit (Physician/GEOLOGIST ) Arrival Mode Ambulatory Transfer Assistance None Patient Identification Verified (Name & Yes ) Patient Requires Transmission-Based No Precautions Height and Weight Body Mass Index (BMI) 28.8 BMI Classification Overweight Vital Signs Temperature (97.8 F-99.1 F) 96.1 F L Temperature Source Temporal Pulse Rate (60-100) 78 Pulse Location Monitor Respiratory Rate (12-18) 18 Respiratory rate source Observation Blood Pressure (90/60-120/80) 151/94 H Blood Pressure Mean (mm Hg) 113 Source Monitor Position Semi-Fowlers Blood Pressure Location Left Arm History Since Last Visit- (Skip if this is Patient's initial visit) Have you changed medications since your No last visit? Any new allergies or adverse reactions No Had a fall/change in ADL's that may No increase risk of falls Signs or symptoms of abuse and/or No neglect since last visit Have you been in the hospital since your No last visit? Has dressing in place as prescribed Yes Has compression in place as prescribed No Has offloadiing in place as prescribed No Experienced any changes in pain level or No management Right Footwear Surgical Shoe with pressure relief insole Pain Scale: 0-10 Numeric Is Patient Pain Free? Yes - Nurse 1 - General Ulcer Measurement Start: 03/13/22 08:55 Freq: Status: Active Protocol: Activity Type Activity Date Activity User E-sign Co-sign Detail Recorded Client Recorded Date Recorded By Document 03/13/22 08:56 [facility] [id number] 03/13/22 09:00 [facility] 03/13/22 08:56 Wound Center Nurse 1 #4- R FOOT HALLUX AMP SITE post -op -Combined with other wound No -Current Size (cm) - Length 1.3 -Current Size (cm) - Width 0.3 -Current Size (cm) - Depth 0.4 -Total Square Cm 0.39 -Photo Taken Yes -Tunneling No -Undermining/Tunneling No -Circular Undermining No -Exudate Amt Medium -Exudate Type Serosanguineous -Wound Margin Distinct, Outline Attached -Granulation Amt Medium (34-66%) -Granulation Quality [place] -Slough/Fibrin Yes -Necrosis Amt Medium (34-66%) -Necrotic Tissue Type Adherent Slough -Structure Exposed N/A -Texture (Ashlyn-wound Skin Appearance) Assessed, Scarring -Moisture (Ashlyn-wound Skin Appearance) Assessed -Color (Ashlyn-wound Skin Appearance) Assessed -Temperature (Ashlyn-wound Skin No Abnormality Appearance) (Pt Warm) -Tenderness on Palpation (Ashlyn-wound No Skin Appearance) -Ulcer Cleansing Wound Cleanser -Foul Odor after Cleansing No Lower Limb Edema Present Yes Right Calf (cm) 35.9 Right Ankle (cm) 20.6 WC - Nurse 2 - General Ulcer CM Notes Start: 03/13/22 08:55 Freq: Status: Active Protocol: Activity Type Activity Date Activity User E-sign Co-sign Detail Recorded Client Recorded Date Recorded By Document 03/13/22 09:14 NANETTE [id number] 03/13/22 09:17 NANETTE 03/13/22 09:14 Wound Center Nurse 2 #4- R FOOT HALLUX AMP SITE post -op -Time 09:15 -Correct Patient Yes -Correct Side, Site, Position Yes -Correct Procedure Yes -Procedure Performed Yes -Type of Procedure Debridement -Clinical Debridement Subcutaneous -Tissue Removed Subcutaneous -Post Debridement (cm) - Length 1.7 -Post Debridement (cm) - Width 0.2 -Post Debridement (cm) - Depth 0.5 -Total Square (Post) (cm) 0.34 -Area of Debridement (cm) - Length 1.7 -Area of Debridement (cm) - Width 0.2 -Total Square (Area) (cm) 0.34 -Tunneling No -Undermining/Tunneling No -Circular Undermining No -Wound/Ulcer Outcome Not Healed -Ulcer Cleansing Rinsed/ Irrigated with Saline -Foul Odor after Cleansing No -Bioengineered Tissue Yes -Type of Bioengineered Tissue Epifix 18mm Disc -Expiration Date 12/09/26 -Product Lot Number [id number] -Percent Used 100 -Lot number of Saline Used [id number] -Bleeding Controlled with Pressure -Treatment Response Procedure Tolerated Well -Offloading Yes -Type of Offloading Surgical Shoe -Debridement - Subq, 1st 20sq cm No -Apply Skin Sub - 1st 25 sq cm - Feet 1 -Epifix 18mm Disc 3 Pain Scale: 0-10 Numeric Is Patient Pain Free? Yes - Nurse 3 - General Ulcer D/C NN Start: 03/13/22 08:55 Freq: Status: Active Protocol: Activity Type Activity Date Activity User E-sign Co-sign Detail Recorded Client Recorded Date Recorded By Document 03/13/22 09:27 NANETTE [id number] 03/13/22 09:28 NANETTE 03/13/22 09:27 Wound Care Nurse 3 #4- R FOOT HALLUX AMP SITE post -op -Ulcer Cleansing Rinsed/ Irrigated with Saline -Foul Odor after Cleansing No -Primary Dressing Covered/Secured with Dry Gauze & Roll Gauze, Secured with Tape Right -Tubular Bandage Single Layer -Size of Tubigrip Used Size D -Size D ($) 1 Pain Scale: 0-10 Numeric Is Patient Pain Free? Yes WC - Visit Discharge Discharge Condition Stable Ambulatory Status Ambulatory Transportation Private Auto Medication Reconcilliation completed & Yes provided to patient/care provider Clinical Summary of Care Provided Yes Assessment/Plan Assessment/Plan (1) Ulcer of right foot with necrosis of bone: CODE(S): L97.514 - Non-pressure chronic ulcer of other part of right foot with necrosis of bone (2) Type 2 diabetes mellitus with diabetic polyneuropathy: CODE(S): E11.42 - Type 2 diabetes mellitus with diabetic polyneuropathy (3) Hallux limitus of right foot: CODE(S): M20.5X1 - Other deformities of toe(s) (acquired), right foot (4) Osteomyelitis: CODE(S): M86.9 - Osteomyelitis, unspecified QUALIFIERS: Osteomyelitis type: other acute Osteomyelitis location: foot Laterality: right Qualified Code(s): M86.171 - Other acute osteomyelitis, right ankle and foot (5) Other specified peripheral vascular diseases: CODE(S): I73.89 - Other specified peripheral vascular diseases (6) Delayed wound healing: CODE(S): T14.8XXD - Other injury of unspecified body region, subsequent encounter (7) 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 He was reassured there is no erythema or purulence to the foot. Debridement performed as noted Dressing: To keep secondary dressing clean, dry, and intact. Advance wound healing options: I recommend advancing healing product epi cord and later epi fix when this wound is more superficial to optimize healing. The indications and benefits, anticipated management and healing process was reviewed. This is medically necessary for limb salvage and he is at risk for further amputations, infections, delayed healing and even . Verbal consent was obtained and prior authorization was also obtained. This was applied according to standard protocol and was secured in place with a wound veil and Steri-Strips. 100% of the product was utilized. He tolerated this well. A secondary dressing was applied. He was advised to keep this clean, dry, and intact until follow-up next week. Offload: Heel weightbearing with surgical shoe. To use assistive device. I recommend fully offloading the entire foot transitioning to nonweightbearing status with a walker or knee roller. This is imperative for healing. It is noted he is unable to proceed forward with the recommended total contact cast. The Vascular: He had prior vascular surgery intervention at [facility] in [place] and also locally with Dr. Wells. On 11-27-2021 he had additional vascular surgery procedure performed; angioplasty of anterior tibial and peroneal arteries with improved foot flow. Host factors: He has uncontrolled diabetes with a self-reported A1c of over 9%. He understands this in combination with his known vascular disease make healing difficult. He is at risk for amputation and he is made this previously clear that he will not proceed forward with this. I recommend nutritional education to optimize healing. I advised him to avoid skipping meals. Advised him to eat a whole food balanced diet that not only focuses on adequate (not excessive) protein but also nutrient dense food intake. 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 Resources were provided as reviewed them. This was discussed again today. Infection: Prior h/o cipro for PsA R foot osteo. recently worsened and updated cx now resistance to cipro. PICC placed, 6 weeks iv zosyn, stop date 12/13/21. Surgical clearance fragment from pathology was negative. Surgical clearance fragment from micro had pseudomonas growth. Additional oral cipro was recommended by ID specialist; to follow instructions as advised. ID physician communicated this plan. Note: [employer] speech recognition cnc mechanic software was used to create portions of this document. Sound-alike and misspelled words, as well as other cnc mechanic errors may be contained in the documentation.
[2022-03-20 08:50] VITALS: BP 117/74; PULSE 74; RESP 20; TEMP 36; BMI 28.8
--- NOTE | 2022-03-20 09:39 | PN.PCM_ITS ---
History of Present Illness Date of Service: 03/20/22 Chief Complaint: right foot ulcer / prior first ray resection surgery History of Wound: This 62-year-old diabetic male was seen in clinic today. He underwent amputation of the right hallux at the first metatarsophalangeal joint on 09/25/2021. He now continues on oral antibiotics in the outpatient setting after he completed a course of IV antibiotics. He denies any nausea, vomiting, fever, chills, or other constitutional symptoms. Patient has a history of anxiety and depression secondary to dealing with his chronic hallux ulceration for the last year. He has completed a procedure with Dr. Wells for vascular surgery intervention on 11-27-2021; angioplasty of anterior tibial and peroneal arteries with improved foot flow. He is now status post first ray resection/amputation that was performed on 12-11-2021 at [facility]. He has tried to keep pressure off this site. He has reduced drainage. He is ready to proceed forward with advanced wound healing product application today and did well last week. Progress of Wound: Improving Objective Data Objective Data Vital Signs: Vital Signs Temp Pulse Resp BP 96.8 F L 74 20 H 117/74 03/20/22 08:50 03/20/22 08:50 03/20/22 08:50 03/20/22 08:50 Weight: 86.183 kg Body Mass Index (BMI) 28.8 Physical Exam Const alert, oriented x3 and no apparent distress Lymph Lymphatic: no lymphedema noted Skin Wound Narrative: first ray resection site is stable with central updated sutures intact. the dorsal most aspect remains closed. no central tissue plug noted. no purulence, odor , erythema, streaking or eschar or necrosis noted. no bogginess or fluctuance on palpation to the surgical site. compartments remain soft to palpate. Mild serosanguineous drainage only noted and reduced ulcer size and drainage is appreciated Debridement Note Debridement Note Wound debrided: right foot Wound Grade/Stage: 3 Type of Debridement: Excisional debridement Anesthesia Used: 4% Lidocaine Solution Depth: in the subcutaneous layer Percentage of wound debrided: 100 Instrument Used: #15 blade Tissue Removed: fibrous, devitalized subcutaneous, biofilm, slough Severity: Fat Layer Exposed Amount of bleeding with debridement: Mild Bleeding Controlled with: Pressure Patient tolerated procedure: Patient tolerated procedure well Post-Debridement Measurements and Additional Note: Post-Debridement Measurements/Treatment WC - Nurse 1 - General Ulcer Assessment Start: 03/13/22 08:55 Freq: Status: Active Protocol: REHAN Activity Type Activity Date Activity User E-sign Co-sign Detail Recorded Client Recorded Date Recorded By Document 03/13/22 08:56 BMF [id number] 03/13/22 09:00 BMF Document 03/20/22 08:50 DL [id number] 03/20/22 08:57 DL 03/13/22 03/20/22 08:56 08:50 WC - Today's Visit Information Type of service Follow-up Visit Follow-up Visit (Physician/E COMMERCE MANAGER (Physician/E COMMERCE MANAGER ) ) Arrival Mode Ambulatory Ambulatory Transfer Assistance None None Patient Identification Verified (Name & Yes Yes ) Patient Requires Transmission-Based No No Precautions Finger Stick Blood Sugar(mg/dl) (if not checked indicated): Blood Sugar Stated by Patient Height and Weight Body Mass Index (BMI) 28.8 28.8 BMI Classification Overweight Overweight Vital Signs Temperature (97.8 F-99.1 F) 96.1 F L 96.8 F L Temperature Source Temporal Temporal Pulse Rate (60-100) 78 74 Pulse Location Monitor Monitor Respiratory Rate (12-18) 18 20 H Respiratory rate source Observation Observation Blood Pressure (90/60-120/80) 151/94 H 117/74 Blood Pressure Mean (mm Hg) 113 88 Source Monitor Monitor Position Semi-Fowlers Blood Pressure Location Left Arm History Since Last Visit- (Skip if this is Patient's initial visit) Have you changed medications since your No No last visit? Any new allergies or adverse reactions No No Had a fall/change in ADL's that may No No increase risk of falls Signs or symptoms of abuse and/or No No neglect since last visit Have you been in the hospital since your No No last visit? Has dressing in place as prescribed Yes Yes Has compression in place as prescribed No N/A Has offloadiing in place as prescribed No Yes Experienced any changes in pain level or No No management Right Footwear Surgical Shoe Surgical Shoe with pressure with pressure relief insole relief insole Pain Scale: 0-10 Numeric Is Patient Pain Free? Yes Yes JAE - Nurse 1 - General Ulcer Measurement Start: 03/13/22 08:55 Freq: Status: Active Protocol: Activity Type Activity Date Activity User E-sign Co-sign Detail Recorded Client Recorded Date Recorded By Document 03/13/22 08:56 [facility] [id number] 03/13/22 09:00 BM Document 03/20/22 08:50 DL [id number] 03/20/22 08:57 DL 03/13/22 03/20/22 08:56 08:50 Wound Center Nurse 1 #4- R FOOT HALLUX AMP SITE post -op -Combined with other wound No -Current Size (cm) - Length 1.3 1.5 -Current Size (cm) - Width 0.3 0.2 -Current Size (cm) - Depth 0.4 0.5 -Total Square Cm 0.39 0.30 -Photo Taken Yes No -Tunneling No -Undermining/Tunneling No -Circular Undermining No -Exudate Amt Medium Small -Exudate Type Serosanguineous -Wound Margin Distinct, Distinct, Outline Outline Attached Attached -Granulation Amt Medium (34-66%) Large (67-100%) -Granulation Quality [place] -Slough/Fibrin Yes -Necrosis Amt Medium (34-66%) Small (1-33%) -Necrotic Tissue Type Adherent Slough Adherent Slough -Structure Exposed N/A N/A -Texture (Ashlyn-wound Skin Appearance) Assessed, Scarring Scarring -Moisture (Ashlyn-wound Skin Appearance) Assessed Dry/Scaly -Color (Ashlyn-wound Skin Appearance) Assessed No Abnormality -Temperature (Ashlyn-wound Skin No Abnormality No Abnormality Appearance) (Pt Warm) (Pt Warm) -Tenderness on Palpation (Ashlyn-wound No No Skin Appearance) -Ulcer Cleansing Wound Cleanser Soap and Water -Foul Odor after Cleansing No No -Anesthetic Used 5% Lidocaine Gel Lower Limb Edema Present Yes Right Calf (cm) 35.9 Right Ankle (cm) 20.6 WC - Nurse 2 - General Ulcer CM Notes Start: 03/13/22 08:55 Freq: Status: Active Protocol: Activity Type Activity Date Activity User E-sign Co-sign Detail Recorded Client Recorded Date Recorded By Document 03/13/22 09:14 [id number] 03/13/22 09:17 Document 03/20/22 09:08 [id number] 03/20/22 09:14 03/13/22 03/20/22 09:14 09:08 Wound Center Nurse 2 #4- R FOOT HALLUX AMP SITE post -op -Time 09:15 09:13 -Correct Patient Yes Yes -Correct Side, Site, Position Yes Yes -Correct Procedure Yes Yes -Procedure Performed Yes Yes -Type of Procedure Debridement Debridement -Clinical Debridement Subcutaneous Subcutaneous -Tissue Removed Subcutaneous Subcutaneous -Post Debridement (cm) - Length 1.7 1.6 -Post Debridement (cm) - Width 0.2 0.2 -Post Debridement (cm) - Depth 0.5 0.5 -Total Square (Post) (cm) 0.34 0.32 -Area of Debridement (cm) - Length 1.7 1.6 -Area of Debridement (cm) - Width 0.2 0.2 -Total Square (Area) (cm) 0.34 0.32 -Tunneling No No -Undermining/Tunneling No No -Circular Undermining No No -Wound/Ulcer Outcome Not Healed Not Healed -Ulcer Cleansing Rinsed/ Rinsed/ Irrigated with Irrigated with Saline Saline -Foul Odor after Cleansing No No -Bioengineered Tissue Yes Yes -Type of Bioengineered Tissue Epifix 18mm Epifix 18mm Disc Disc -Expiration Date 12/09/26 12/09/26 -Product Lot Number [id number] -Percent Used 100 100 -Lot number of Saline Used [id number] -Bleeding Controlled with Pressure Pressure -Treatment Response Procedure Procedure Tolerated Well Tolerated Well -Offloading Yes Yes -Type of Offloading Surgical Shoe Surgical Shoe -Debridement - Subq, 1st 20sq cm No No -Apply Skin Sub - 1st 25 sq cm - Feet 1 1 -Epifix 18mm Disc 3 3 Pain Scale: 0-10 Numeric Is Patient Pain Free? Yes Yes WC - Nurse 3 - General Ulcer D/C NN Start: 03/13/22 08:55 Freq: Status: Active Protocol: Activity Type Activity Date Activity User E-sign Co-sign Detail Recorded Client Recorded Date Recorded By Document 03/13/22 09:27 NANETTE [id number] 03/13/22 09:28 NANETTE Document 03/20/22 09:20 NANETTE [id number] 03/20/22 09:20 NANETTE 03/13/22 03/20/22 09:27 09:20 Wound Care Nurse 3 #4- R FOOT HALLUX AMP SITE post -op -Ulcer Cleansing Rinsed/ Rinsed/ Irrigated with Irrigated with Saline Saline -Foul Odor after Cleansing No No -Primary Dressing Covered/Secured with Dry Gauze & Dry Gauze & Roll Gauze, Roll Gauze, Secured with Secured with Tape Tape Right -Tubular Bandage Single Layer Single Layer -Size of Tubigrip Used Size D Size D -Size D ($) 1 0 Pain Scale: 0-10 Numeric Is Patient Pain Free? Yes Yes WC - Visit Discharge Discharge Condition Stable Stable Ambulatory Status Ambulatory Ambulatory Transportation Private Auto Private Auto Medication Reconcilliation completed & Yes Yes provided to patient/care provider Clinical Summary of Care Provided Yes Yes Assessment/Plan Assessment/Plan (1) Ulcer of right foot with necrosis of bone: CODE(S): L97.514 - Non-pressure chronic ulcer of other part of right foot with necrosis of bone (2) Type 2 diabetes mellitus with diabetic polyneuropathy: CODE(S): E11.42 - Type 2 diabetes mellitus with diabetic polyneuropathy (3) Hallux limitus of right foot: CODE(S): M20.5X1 - Other deformities of toe(s) (acquired), right foot (4) Osteomyelitis: CODE(S): M86.9 - Osteomyelitis, unspecified QUALIFIERS: Osteomyelitis type: other acute Osteomyelitis location: foot Laterality: right Qualified Code(s): M86.171 - Other acute osteomyelitis, right ankle and foot (5) Other specified peripheral vascular diseases: CODE(S): I73.89 - Other specified peripheral vascular diseases (6) Delayed wound healing: CODE(S): T14.8XXD - Other injury of unspecified body region, subsequent e ncounter (7) 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 He was reassured there is no erythema or purulence to the foot. Debridement performed as noted Dressing: To keep secondary dressing clean, dry, and intact. Advance wound healing options: I recommend advancing healing product epi cord and later epi fix when this wound is more superficial to optimize healing. The indications and benefits, anticipated management and healing process was reviewed. This is medically necessary for limb salvage and he is at risk for further amputations, infections, delayed healing and even . Verbal consent was obtained and prior authorization was also obtained. This was applied according to standard protocol and was secured in place with a wound veil and Steri-Strips. 100% of the product was utilized. He tolerated this well. A secondary dressing was applied. He was advised to keep this clean, dry, and intact until follow-up next week. Offload: Heel weightbearing with surgical shoe. To use assistive device. I recommend fully offloading the entire foot transitioning to nonweightbearing status with a walker or knee roller. This is imperative for healing. It is noted he is unable to proceed forward with the recommended total contact cast. The Vascular: He had prior vascular surgery intervention at [facility] in [place] and also locally with Dr. Wells. On 11-27-2021 he had additional vascular surgery procedure performed; angioplasty of anterior tibial and peroneal arteries with improved foot flow. Host factors: He has uncontrolled diabetes with a self-reported A1c of over 9%. He understands this in combination with his known vascular disease make healing difficult. He is at risk for amputation and he is made this previously clear t hat he will not proceed forward with this. I recommend nutritional education to optimize healing. I advised him to avoid skipping meals. Advised him to eat a whole food balanced diet that not only focuses on adequate (not excessive) protein but also nutrient dense food intake. 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 Resources were provided as reviewed them. This was discussed again today. Infection: Prior h/o cipro for PsA R foot osteo. recently worsened and updated cx now resistance to cipro. PICC placed, 6 weeks iv zosyn, stop date 12/13/21. Surgical clearance fragment from pathology was negative. Surgical clearance fragment from micro had pseudomonas growth. Additional oral cipro was recommended by ID specialist; to follow instructions as advised. ID physician communicated this plan. Note: [employer] speech recognition down filler software was used to create portions of this document. Sound-alike and misspelled words, as well as other down filler errors may be contained in the documentation.
[2022-03-27 09:07] VITALS: BP 137/62; PULSE 76; RESP 22; TEMP 36.5; BMI 28.8
--- NOTE | 2022-03-27 09:29 | PN.PCM_ITS ---
History of Present Illness Date of Service: 03/27/22 Chief Complaint: right foot ulcer / prior first ray resection surgery History of Wound: This 62-year-old diabetic male was seen in clinic today. He underwent amputation of the right hallux at the first metatarsophalangeal joint on 09/25/2021. He now continues on oral antibiotics in the outpatient setting after he completed a course of IV antibiotics. He denies any nausea, vomiting, fever, chills, or other constitutional symptoms. Patient has a history of anxiety and depression secondary to dealing with his chronic hallux ulceration for the last year. He has completed a procedure with Dr. Wells for vascular surgery intervention on 11-27-2021; angioplasty of anterior tibial and peroneal arteries with improved foot flow. He is now status post first ray resection/amputation that was performed on 12-11-2021 at [facility]. He has tried to keep pressure off this site. He is ready to proceed forward with advanced wound healing product application today and did well last week. He takes nutritional supplements occasionally. Progress of Wound: Improving Objective Data Objective Data Vital Signs: Vital Signs Temp Pulse Resp BP 97.7 F L 76 22 H 137/62 H 03/27/22 09:07 03/27/22 09:07 03/27/22 09:07 03/27/22 09:07 Weight: 86.183 kg Body Mass Index (BMI) 28.8 Physical Exam Const alert, oriented x3 and no apparent distress Lymph Lymphatic: no lymphedema noted Skin Wound Narrative: first ray resection site is stable with central updated sutures intact. the dorsal most aspect remains closed. no central tissue plug noted. no purulence, odor , erythema, streaking or eschar or necrosis noted. no bogginess or fluctuance on palpation to the surgical site. compartments remain soft to palpate. Mild serosanguineous drainage only noted and reduced ulcer size and drainage is appreciated Debridement Note Debridement Note Wound debrided: right foot Wound Grade/Stage: 3 Type of Debridement: Excisional debridement Anesthesia Used: 4% Lidocaine Solution Depth: in the subcutaneous layer Percentage of wound debrided: 100 Instrument Used: #15 blade Tissue Removed: fibrous, devitalized subcutaneous, biofilm, slough Severity: Fat Layer Exposed Amount of bleeding with debridement: Mild Bleeding Controlled with: Pressure Patient tolerated procedure: Patient tolerated procedure well Post-Debridement Measurements and Additional Note: Post-Debridement Measurements/Treatment WC - Nurse 1 - General Ulcer Assessment Start: 03/13/22 08:55 Freq: Status: Active Protocol: REHAN Activity Type Activity Date Activity User E-sign Co-sign Detail Recorded Client Recorded Date Recorded By Document 03/13/22 08:56 BMF [id number] 03/13/22 09:00 BMF Document 03/20/22 08:50 DL [id number] 03/20/22 08:57 DL Document 03/27/22 09:07 DL Desktop 03/27/22 09:17 DL 03/13/22 03/20/22 03/27/22 08:56 08:50 09:07 WC - Today's Visit Information Type of service Follow-up Visit Follow-up Visit Follow-up Visit (Physician/CHIEF UNIT FORESTER (Physician/CHIEF UNIT FORESTER (Physician/CHIEF UNIT FORESTER ) ) ) Arrival Mode Ambulatory Ambulatory Ambulatory Transfer Assistance None None None Patient Identification Verified (Name & Yes Yes Yes ) Patient Requires Transmission-Based No No No Precautions Finger Stick Blood Sugar(mg/dl) (if not checked not checked indicated): Blood Sugar Stated by Stated by Patient Patient Height and Weight Body Mass Index (BMI) 28.8 28.8 28.8 BMI Classification Overweight Overweight Overweight Vital Signs Temperature (97.8 F-99.1 F) 96.1 F L 96.8 F L 97.7 F L Temperature Source Temporal Temporal Temporal Pulse Rate (60-100) 78 74 76 Pulse Location Monitor Monitor Monitor Respiratory Rate (12-18) 18 20 H 22 H Respiratory rate source Observation Observation Observation Blood Pressure (90/60-120/80) 151/94 H 117/74 137/62 H Blood Pressure Mean (mm Hg) 113 88 87 Source Monitor Monitor Monitor Position Semi-Fowlers Blood Pressure Location Left Arm History Since Last Visit- (Skip if this is Patient's initial visit) Have you changed medications since your No No No last visit? Any new allergies or adverse reactions No No No Had a fall/change in ADL's that may No No No increase risk of falls Signs or symptoms of abuse and/or No No No neglect since last visit Have you been in the hospital since your No No No last visit? Has dressing in place as prescribed Yes Yes Yes Has compression in place as prescribed No N/A No Has offloadiing in place as prescribed No Yes Yes Experienced any changes in pain level or No No No management Right Footwear Surgical Shoe Surgical Shoe with pressure with pressure relief insole relief insole Pain Scale: 0-10 Numeric Is Patient Pain Free? Yes Yes Yes WC - Nurse 1 - General Ulcer Measurement Start: 03/13/22 08:55 Freq: Status: Active Protocol: Activity Type Activity Date Activity User E-sign Co-sign Detail Recorded Client Recorded Date Recorded By Document 03/13/22 08:56 BMF [id number] 03/13/22 09:00 BMF Document 03/20/22 08:50 DL [id number] 03/20/22 08:57 DL Document 03/27/22 09:07 DL Desktop 03/27/22 09:17 DL 03/13/22 03/20/22 03/27/22 08:56 08:50 09:07 Wound Center Nurse 1 #4- R FOOT HALLUX AMP SITE post -op -Combined with other wound No -Current Size (cm) - Length 1.3 1.5 0.2 -Current Size (cm) - Width 0.3 0.2 0.4 -Current Size (cm) - Depth 0.4 0.5 0.3 -Total Square Cm 0.39 0.30 0.08 -Photo Taken Yes No No -Tunneling No -Undermining/Tunneling No -Circular Undermining No -Exudate Amt Medium Small Small -Exudate Type Serosanguineous Serosanguineous -Wound Margin Distinct, Distinct, Thickened & Outline Outline Rolled Under Attached Attached -Granulation Amt Medium (34-66%) Large (67-100%) Small (1-33%) -Granulation [place] -Slough/Fibrin Yes -Necrosis Amt Medium (34-66%) Small (1-33%) Small (1-33%) -Necrotic Tissue Type Adherent Slough Adherent Slough Adherent Slough -Structure Exposed N/A N/A -Texture (Ashlyn-wound Skin Appearance) Assessed, Scarring Scarring Scarring -Moisture (Ashlyn-wound Skin Appearance) Assessed Dry/Scaly No Abnormality -Color (Ashlyn-wound Skin Appearance) Assessed No Abnormality No Abnormality -Temperature (Ashlyn-wound Skin No Abnormality No Abnormality No Abnormality Appearance) (Pt Warm) (Pt Warm) (Pt Warm) -Tenderness on Palpation (Ashlyn-wound No No No Skin Appearance) -Ulcer Cleansing Wound Cleanser Soap and Water Soap and Water -Foul Odor after Cleansing No No No -Anesthetic Used 5% Lidocaine 5% Lidocaine Gel Gel Lower Limb Edema Present Yes Right Calf (cm) 35.9 34.5 Right Ankle (cm) 20.6 19 WC - Nurse 2 - General Ulcer CM Notes Start: 03/13/22 08:55 Freq: Status: Active Protocol: Activity Type Activity Date Activity User E-sign Co-sign Detail Recorded Client Recorded Date Recorded By Document 03/13/22 09:14 [id number] 03/13/22 09:17 Document 03/20/22 09:08 [id number] 03/20/22 09:14 Document 03/27/22 09:26 [id number] 03/27/22 09:28 03/13/22 03/20/22 03/27/22 09:14 09:08 09:26 Wound Center Nurse 2 #4- R FOOT HALLUX AMP SITE post -op -Time 09:15 09:13 09:27 -Correct Patient Yes Yes Yes -Correct Side, Site, Position Yes Yes Yes -Correct Procedure Yes Yes Yes -Procedure Performed Yes Yes Yes -Type of Procedure Debridement Debridement Incision & Drainage -Clinical Debridement Subcutaneous Subcutaneous Subcutaneous -Tissue Removed Subcutaneous Subcutaneous Subcutaneous -Post Debridement (cm) - Length 1.7 1.6 0.3 -Post Debridement (cm) - Width 0.2 0.2 0.6 -Post Debridement (cm) - Depth 0.5 0.5 0.2 -Total Square (Post) (cm) 0.34 0.32 0.18 -Area of Debridement (cm) - Length 1.7 1.6 0.3 -Area of Debridement (cm) - Width 0.2 0.2 0.6 -Total Square (Area) (cm) 0.34 0.32 0.18 -Tunneling No No -Undermining/Tunneling No No No -Circular Undermining No No No -Wound/Ulcer Outcome Not Healed Not Healed Not Healed -Ulcer Cleansing Rinsed/ Rinsed/ Rinsed/ Irrigated with Irrigated with Irrigated with Saline Saline Saline -Foul Odor after Cleansing No No No -Bioengineered Tissue Yes Yes Yes -Type of Bioengineered Tissue Epifix 18mm Epifix 18mm Epifix 18mm Disc Disc Disc -Expiration Date 12/09/26 12/09/26 01/09/27 -Product Lot Number [id number] -Percent Used 100 100 100 -Lot number of Saline Used [id number] -Bleeding Controlled with Pressure Pressure Pressure -Treatment Response Procedure Procedure Procedure Tolerated Well Tolerated Well Tolerated Well -Offloading Yes Yes Yes -Type of Offloading Surgical Shoe Surgical Shoe Surgical Shoe -Debridement - Subq, 1st 20sq cm No No No -Apply Skin Sub - 1st 25 sq cm - Feet 1 1 1 -Epifix 18mm Disc 3 3 3 Pain Scale: 0-10 Numeric Is Patient Pain Free? Yes Yes Yes - Nurse 3 - General Ulcer D/C NN Start: 03/13/22 08:55 Freq: Status: Active Protocol: Activity Type Activity Date Activity User E-sign Co-sign Detail Recorded Client Recorded Date Recorded By Document 03/13/22 09:27 [id number] 03/13/22 09:28 Document 03/20/22 09:20 [id number] 03/20/22 09:20 03/13/22 03/20/22 09:27 09:20 Wound Care Nurse 3 #4- R FOOT HALLUX AMP SITE post -op -Ulcer Cleansing Rinsed/ Rinsed/ Irrigated with Irrigated with Saline Saline -Foul Odor after Cleansing No No -Primary Dressing Covered/Secured with Dry Gauze & Dry Gauze & Roll Gauze, Roll Gauze, Secured with Secured with Tape Tape Right -Tubular Bandage Single Layer Single Layer -Size of Tubigrip Used Size D Size D -Size D ($) 1 0 Pain Scale: 0-10 Numeric Is Patient Pain Free? Yes Yes - Visit Discharge Discharge Condition Stable Stable Ambulatory Status Ambulatory Ambulatory Transportation Private Auto Private Auto Medication Reconcilliation completed & Yes Yes provided to patient/care provider Clinical Summary of Care Provided Yes Yes Assessment/Plan Assessment/Plan (1) Ulcer of right foot with necrosis of bone: CODE(S): L97.514 - Non-pressure chronic ulcer of other part of right foot with necrosis of bone (2) Type 2 diabetes mellitus with diabetic polyneuropathy: CODE(S): E11.42 - Type 2 diabetes mellitus with diabetic polyneuropathy (3) Hallux limitus of right foot: CODE(S): M20.5X1 - Other deformities of toe(s) (acquired), right foot (4) Osteomyelitis: CODE(S): M86.9 - Osteomyelitis, unspecified QUALIFIERS: Osteomyelitis type: other acute Osteomyelitis location: foot Laterality: right Qualified Code(s): M86.171 - Other acute osteomyelitis, right ankle and foot (5) Other specified peripheral vascular diseases: CODE(S): I73.89 - Other specified peripheral vascular diseases (6) Delayed wound healing: CODE(S): T14.8XXD - Other injury of unspecified body region, subsequent encounter (7) 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 He was reassured there is no erythema or purulence to the foot. Debridement performed as noted Dressing: To keep secondary dressing clean, dry, and intact. Advance wound healing options: I recommend advancing healing product epi cord and later epi fix when this wound is more superficial to optimize healing. The indications and benefits, anticipated management and healing process was reviewed. This is medically necessary for limb salvage and he is at risk for further amputations, infections, delayed healing and even . Verbal consent was obtained and prior authorization was also obtained. This was applied according to standard protocol and was secured in place with a wound veil and Steri-Strips. 100% of the product was utilized. He tolerated this well. A secondary dressing was applied. He was advised to keep this clean, dry, and intact until follow-up next week. Offload: Heel weightbearing with surgical shoe. To use assistive device. I recommend fully offloading the entire foot transitioning to nonweightbearing status with a walker or knee roller. This is imperative for healing. It is noted he is unable to proceed forward with the recommended total contact cast. The Vascular: He had prior vascular surgery intervention at [facility] in [place] and also locally with Dr. Wells. On 11-27-2021 he had additional vascular surgery procedure performed; angioplasty of anterior tibial and peroneal arteries with improved foot flow. Host factors: He has uncontrolled diabetes with a self-reported A1c of over 9%. He understands this in combination with his known vascular disease make healing difficult. He is at risk for amputation and he is made this previously clear that he will not proceed forward with this. I recommend nutritional education to optimize healing. I advised him to avoid skipping meals. Advised him to eat a whole food balanced diet that not only focuses on adequate (not excessive) protein but also nutrient dense food intake. 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 Resources were provided as reviewed them. This was discussed again today. Infection: Prior h/o cipro for PsA R foot osteo. recently worsened and updated cx now resistance to cipro. PICC placed, 6 weeks iv zosyn, stop date 12/13/21. Surgical clearance fragment from pathology was negative. Surgical clearance fragment from micro had pseudomonas growth. Additional oral cipro was recommended by ID specialist; to follow instructions as advised. ID physician communicated this plan. Note: [employer] speech recognition laborer airport maintenance software was used to create portions of this document. Sound-alike and misspelled words, as well as other laborer airport maintenance errors may be contained in the documentation.
[2022-04-03 09:18] VITALS: BP 137/60; PULSE 71; RESP 16; TEMP 36.5; BMI 28.8
--- NOTE | 2022-04-03 10:29 | PCM.WC.PN ---
History of Present Illness Date of Service: 04/03/22 Chief Complaint: right foot ulcer / prior first ray resection surgery History of Wound: This 62-year-old diabetic male was seen in clinic today. He is now status post first ray resection/amputation that was performed on 12-11-2021 at [facility]. He was also seen for continuation of antibiotics under infectious disease management. He denies any nausea, vomiting, fever, chills, or other constitutional symptoms. Patient has a history of anxiety and depression secondary to dealing with his chronic hallux ulceration for the last year. He has completed a procedure with Dr. Wells for vascular surgery intervention on 11-27-2021; angioplasty of anterior tibial and peroneal arteries with improved foot flow. He has tried to keep pressure off this site. He is ready to proceed forward with advanced wound healing product application today and did well last week. He takes nutritional supplements occasionally. Progress of Wound: Improving Objective Data Objective Data Vital Signs: Vital Signs Temp Pulse Resp BP O2 Del Method 97.7 F L 71 16 137/60 H Room Air 04/03/22 09:18 04/03/22 09:18 04/03/22 09:18 04/03/22 09:18 04/03/22 09:18 Oxygen Delivery Method Room Air Weight: 86.183 kg Body Mass Index (BMI) 28.8 Physical Exam Const alert, oriented x3 and no apparent distress Lymph Lymphatic: no lymphedema noted Skin Wound Narrative: first ray resection site is stable with central updated sutures intact. the dorsal most aspect remains closed. no central tissue plug noted. no purulence, odor , erythema, streaking or eschar or necrosis noted. no bogginess or fluctuance on palpation to the surgical site. compartments remain soft to palpate. Mild serosanguineous drainage only noted and reduced ulcer size and drainage is appreciated Debridement Note Debridement Note Wound debrided: right foot Wound Grade/Stage: 3 Type of Debridement: Excisional debridement Anesthesia Used: 4% Lidocaine Solution Depth: in the subcutaneous layer Percentage of wound debrided: 100 Instrument Used: #15 blade Tissue Removed: fibrous, devitalized subcutaneous, biofilm, slough Severity: Fat Layer Exposed Amount of bleeding with debridement: Mild Bleeding Controlled with: Pressure Patient tolerated procedure: Patient tolerated procedure well Post-Debridement Measurements and Additional Note: Post-Debridement Measurements/Treatment WC - Nurse 1 - General Ulcer Assessment Start: 03/13/22 08:55 Freq: Status: Active Protocol: WC.LOWEXT Activity Type Activity Date Activity User E-sign Co-sign Detail Recorded Client Recorded Date Recorded By Document 03/13/22 08:56 [facility] [id number] 03/13/22 09:00 BM Document 03/20/22 08:50 DL [id number] 03/20/22 08:57 DL Document 03/27/22 09:07 DL Desktop 03/27/22 09:17 DL Document 04/03/22 09:18 [facility] [id number] 04/03/22 09:25 BMF 03/13/22 03/20/22 03/27/22 08:56 08:50 09:07 WC - Today's Visit Information Type of service Follow-up Visit Follow-up Visit Follow-up Visit (Physician/CURRICULUM SPECIALIST (Physician/CURRICULUM SPECIALIST (Physician/CURRICULUM SPECIALIST ) ) ) Arrival Mode Ambulatory Ambulatory Ambulatory Transfer Assistance None None None Patient Identification Verified (Name & Yes Yes Yes ) Patient Requires Transmission-Based No No No Precautions Finger Stick Blood Sugar(mg/dl) (if not checked not checked indicated): Blood Sugar Stated by Stated by Patient Patient Height and Weight Body Mass Index (BMI) 28.8 28.8 28.8 BMI Classification Overweight Overweight Overweight Vital Signs Temperature (97.8 F-99.1 F) 96.1 F L 96.8 F L 97.7 F L Temperature Source Temporal Temporal Temporal Pulse Rate (60-100) 78 74 76 Pulse Location Monitor Monitor Monitor Respiratory Rate (12-18) 18 20 H 22 H Respiratory rate source Observation Observation Observation Oxygen Delivery Method Blood Pressure (90/60-120/80) 151/94 H 117/74 137/62 H Blood Pressure Mean (mm Hg) 113 88 87 Source Monitor Monitor Monitor Position Semi-Fowlers Blood Pressure Location Left Arm History Since Last Visit- (Skip if this is Patient's initial visit) Have you changed medications since your No No No last visit? Any new allergies or adverse reactions No No No Had a fall/change in ADL's that may No No No increase risk of falls Signs or symptoms of abuse and/or No No No neglect since last visit Have you been in the hospital since your No No No last visit? Has dressing in place as prescribed Yes Yes Yes Has compression in place as prescribed No N/A No Has offloadiing in place as prescribed No Yes Yes Experienced any changes in pain level or No No No management Left Footwear Right Footwear Surgical Shoe Surgical Shoe with pressure with pressure relief insole relief insole Pain Scale: 0-10 Numeric Is Patient Pain Free? Yes Yes Yes 04/03/22 09:18 - Today's Visit Information Type of service Follow-up Visit (Physician/CURRICULUM SPECIALIST ) Arrival Mode Ambulatory Transfer Assistance None Patient Identification Verified (Name & Yes ) Patient Requires Transmission-Based No Precautions Finger Stick Blood Sugar(mg/dl) (if indicated): Blood Sugar Height and Weight Body Mass Index (BMI) 28.8 BMI Classification Overweight Vital Signs Temperature (97.8 F-99.1 F) 97.7 F L Temperature Source Temporal Pulse Rate (60-100) 71 Pulse Location Monitor Respiratory Rate (12-18) 16 Respiratory rate source Observation Oxygen Delivery Method Room Air Blood Pressure (90/60-120/80) 137/60 H Blood Pressure Mean (mm Hg) 85 Source Monitor Position Sitting Blood Pressure Location Left Arm History Since Last Visit- (Skip if this is Patient's initial visit) Have you changed medications since your No last visit? Any new allergies or adverse reactions No Had a fall/change in ADL's that may No increase risk of falls Signs or symptoms of abuse and/or No neglect since last visit Have you been in the hospital since your No last visit? Has dressing in place as prescribed Yes Has compression in place as prescribed Yes Has offloadiing in place as prescribed Yes Experienced any changes in pain level or No management Left Footwear Regular Shoe Right Footwear Surgical Shoe with pressure relief insole Pain Scale: 0-10 Numeric Is Patient Pain Free? Yes - Nurse 1 - General Ulcer Measurement Start: 03/13/22 08:55 Freq: Status: Active Protocol: Activity Type Activity Date Activity User E-sign Co-sign Detail Recorded Client Recorded Date Recorded By Document 03/13/22 08:56 BMF [id number] 03/13/22 09:00 BMF Document 03/20/22 08:50 DL [id number] 03/20/22 08:57 DL Document 03/27/22 09:07 DL Desktop 08/17/22 09:17 DL Document 04/03/22 09:18 [facility] [id number] 04/03/22 09:25 BMF 03/13/22 03/20/22 03/27/22 08:56 08:50 09:07 Wound Center Nurse 1 #4- R FOOT HALLUX AMP SITE post -op -Combined with other wound No -Current Size (cm) - Length 1.3 1.5 0.2 -Current Size (cm) - Width 0.3 0.2 0.4 -Current Size (cm) - Depth 0.4 0.5 0.3 -Total Square Cm 0.39 0.30 0.08 -Date of Last Picture (Recall this field) -Photo Taken Yes No No -Epithelialization -Tunneling No -Undermining/Tunneling No -Circular Undermining No -Exudate Amt Medium Small Small -Exudate Type Serosanguineous Serosanguineous -Wound Margin Distinct, Distinct, Thickened & Outline Outline Rolled Under Attached Attached -Granulation Amt Medium (34-66%) Large (67-100%) Small (1-33%) -Granulation Quality [place] -Slough/Fibrin Yes -Necrosis Amt Medium (34-66%) Small (1-33%) Small (1-33%) -Necrotic Tissue Type Adherent Slough Adherent Slough Adherent Slough -Structure Exposed N/A N/A -Texture (Ashlyn-wound Skin Appearance) Assessed, Scarring Scarring Scarring -Moisture (Ashlyn-wound Skin Appearance) Assessed Dry/Scaly No Abnormality -Color (Ashlyn-wound Skin Appearance) Assessed No Abnormality No Abnormality -Temperature (Ashlyn-wound Skin No Abnormality No Abnormality No Abnormality Appearance) (Pt Warm) (Pt Warm) (Pt Warm) -Tenderness on Palpation (Ashlyn-wound No No No Skin Appearance) -Ulcer Cleansing Wound Cleanser Soap and Water Soap and Water -Foul Odor after Cleansing No No No -Anesthetic Used 5% Lidocaine 5% Lidocaine Gel Gel Lower Limb Edema Present Yes Right Calf (cm) 35.9 34.5 Right Ankle (cm) 20.6 19 04/03/22 09:18 Wound Center Nurse 1 #4- R FOOT HALLUX AMP SITE post -op -Combined with other wound No -Current Size (cm) - Length 1.8 -Current Size (cm) - Width 0.3 -Current Size (cm) - Depth 0.4 -Total Square Cm 0.54 -Date of Last Picture (Recall this 04/03/22 field) -Photo Taken Yes -Epithelialization None Present -Tunneling No -Undermining/Tunneling No -Circular Undermining No -Exudate Amt Small -Exudate Type Serous -Wound Margin Distinct, Outline Attached -Granulation Amt Small (1-33%) -Granulation Quality Red -Slough/Fibrin Yes -Necrosis Amt Large (67-100%) -Necrotic Tissue Type Adherent Slough -Structure Exposed -Texture (Ashlyn-wound Skin Appearance) Assessed, Scarring -Moisture (Ashlyn-wound Skin Appearance) Assessed,Dry/ Scaly -Color (Ashlyn-wound Skin Appearance) Assessed -Temperature (Ashlyn-wound Skin No Abnormality Appearance) (Pt Warm) -Tenderness on Palpation (Ashlyn-wound Yes Skin Appearance) -Ulcer Cleansing Soap and Water -Foul Odor after Cleansing No -Anesthetic Used Lower Limb Edema Present Right Calf (cm) Right Ankle (cm) WC - Nurse 2 - General Ulcer CM Notes Start: 03/13/22 08:55 Freq: Status: Active Protocol: Activity Type Activity Date Activity User E-sign Co-sign Detail Recorded Client Recorded Date Recorded By Document 03/13/22 09:14 [id number] 03/13/22 09:17 Document 03/20/22 09:08 [id number] 03/20/22 09:14 Document 03/27/22 09:26 [id number] 03/27/22 09:28 Document 04/03/22 09:41 [id number] 04/03/22 09:46 03/13/22 03/20/22 03/27/22 09:14 09:08 09:26 Wound Center Nurse 2 #4- R FOOT HALLUX AMP SITE post -op -Time 09:15 09:13 09:27 -Correct Patient Yes Yes Yes -Correct Side, Site, Position Yes Yes Yes -Correct Procedure Yes Yes Yes -Procedure Performed Yes Yes Yes -Type of Procedure Debridement Debridement Incision & Drainage -Clinical Debridement Subcutaneous Subcutaneous Subcutaneous -Tissue Removed Subcutaneous Subcutaneous Subcutaneous -Post Debridement (cm) - Length 1.7 1.6 0.3 -Post Debridement (cm) - Width 0.2 0.2 0.6 -Post Debridement (cm) - Depth 0.5 0.5 0.2 -Total Square (Post) (cm) 0.34 0.32 0.18 -Area of Debridement (cm) - Length 1.7 1.6 0.3 -Area of Debridement (cm) - Width 0.2 0.2 0.6 -Total Square (Area) (cm) 0.34 0.32 0.18 -Tunneling No No -Undermining/Tunneling No No No -Circular Undermining No No No -Wound/Ulcer Outcome Not Healed Not Healed Not Healed -Ulcer Cleansing Rinsed/ Rinsed/ Rinsed/ Irrigated with Irrigated with Irrigated with Saline Saline Saline -Foul Odor after Cleansing No No No -Bioengineered Tissue Yes Yes Yes -Type of Bioengineered Tissue Epifix 18mm Epifix 18mm Epifix 18mm Disc Disc Disc -Expiration Date 12/09/26 12/09/26 01/09/27 -Product Lot Number [id number] -Percent Used 100 100 100 -Lot number of Saline Used [id number] -Bleeding Controlled with Pressure Pressure Pressure -Treatment Response Procedure Procedure Procedure Tolerated Well Tolerated Well Tolerated Well -Offloading Yes Yes Yes -Type of Offloading Surgical Shoe Surgical Shoe Surgical Shoe -Debridement - Subq, 1st 20sq cm No No No -Apply Skin Sub - 1st 25 sq cm - Feet 1 1 1 -Epifix 18mm Disc 3 3 3 Pain Scale: 0-10 Numeric Is Patient Pain Free? Yes Yes Yes 04/03/22 09:41 Wound Center Nurse 2 #4- R FOOT HALLUX AMP SITE post -op -Time 09:41 -Correct Patient Yes -Correct Side, Site, Position Yes -Correct Procedure Yes -Procedure Performed Yes -Type of Procedure Debridement -Clinical Debridement Subcutaneous -Tissue Removed Subcutaneous -Post Debridement (cm) - Length 1.8 -Post Debridement (cm) - Width 0.3 -Post Debridement (cm) - Depth 0.3 -Total Square (Post) (cm) 0.54 -Area of Debridement (cm) - Length 1.8 -Area of Debridement (cm) - Width 0.3 -Total Square (Area) (cm) 0.54 -Tunneling No -Undermining/Tunneling No -Circular Undermining No -Wound/Ulcer Outcome Not Healed -Ulcer Cleansing Rinsed/ Irrigated with Saline -Foul Odor after Cleansing No -Bioengineered Tissue Yes -Type of Bioengineered Tissue Epifix 18mm Disc -Expiration Date 01/09/27 -Product Lot Number [id number] -Percent Used 100 -Lot number of Saline Used [id number] -Bleeding Controlled with Pressure -Treatment Response Procedure Tolerated Well -Offloading Yes -Type of Offloading Surgical Shoe -Debridement - Subq, 1st 20sq cm No -Apply Skin Sub - 1st 25 sq cm - Feet 1 -Epifix 18mm Disc 3 Pain Scale: 0-10 Numeric Is Patient Pain Free? Yes - Nurse 3 - General Ulcer D/C NN Start: 03/13/22 08:55 Freq: Status: Active Protocol: Activity Type Activity Date Activity User E-sign Co-sign Detail Recorded Client Recorded Date Recorded By Document 03/13/22 09:27 [id number] 03/13/22 09:28 Document 03/20/22 09:20 [id number] 03/20/22 09:20 Document 03/27/22 09:41 [facility] [id number] 03/27/22 09:41 [facility] Document 04/03/22 09:53 [facility] [id number] 04/03/22 09:53 [facility] 03/13/22 03/20/22 03/27/22 09:27 09:20 09:41 Wound Care Nurse 3 #4- R FOOT HALLUX AMP SITE post -op -Ulcer Cleansing Rinsed/ Rinsed/ Irrigated with Irrigated with Saline Saline -Foul Odor after Cleansing No No -Other Dressing epifix -Primary Dressing Covered/Secured with Dry Gauze & Dry Gauze & Dry Gauze & Roll Gauze, Roll Gauze, Roll Gauze, Secured with Secured with Secured with Tape Tape Tape,Other -Other Covering abd Right -Tubular Bandage Single Layer Single Layer Single Layer -Size of Tubigrip Used Size D Size D Size E -Size D ($) 1 0 -Size E ($) 1 -Other Treatment Response Procedure Tolerated Well Pain Scale: 0-10 Numeric Is Patient Pain Free? Yes Yes Yes WC - Visit Discharge Discharge Condition Stable Stable Stable Ambulatory Status Ambulatory Ambulatory Ambulatory Transportation Private Auto Private Auto Private Auto Medication Reconcilliation completed & Yes Yes provided to patient/care provider Clinical Summary of Care Provided Yes Yes 04/03/22 09:53 Wound Care Nurse 3 #4- R FOOT HALLUX AMP SITE post -op -Ulcer Cleansing -Foul Odor after Cleansing -Other Dressing epifix -Primary Dressing Covered/Secured with Dry Gauze & Roll Gauze, Secured with Tape -Other Covering abd Right -Tubular Bandage -Size of Tubigrip Used -Size D ($) -Size E ($) -Other applied own single layer tubi Treatment Response Procedure Tolerated Well Pain Scale: 0-10 Numeric Is Patient Pain Free? Yes WC - Visit Discharge Discharge Condition Stable Ambulatory Status Ambulatory Transportation Private Auto Medication Reconcilliation completed & provided to patient/care provider Clinical Summary of Care Provided Assessment/Plan Assessment/Plan (1) Ulcer of right foot with necrosis of bone: CODE(S): L97.514 - Non-pressure chronic ulcer of other part of right foot with necrosis of bone (2) Type 2 diabetes mellitus with diabetic polyneuropathy: CODE(S): E11.42 - Type 2 diabetes mellitus with diabetic polyneuropathy (3) Hallux limitus of right foot: CODE(S): M20.5X1 - Other deformities of toe(s) (acquired), right foot (4) Osteomyelitis: CODE(S): M86.9 - Osteomyelitis, unspecified QUALIFIERS: Osteomyelitis type: other acute Osteomyelitis location: foot Laterality: right Qualified Code(s): M86.171 - Other acute osteomyelitis, right ankle and foot (5) Other specified peripheral vascular diseases: CODE(S): I73.89 - Other specified peripheral vascular diseases (6) Delayed wound healing: CODE(S): T14.8XXD - Other injury of unspecified body region, subsequent encounter (7) 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 He was reassured there is no erythema or purulence to the foot. Debridement performed as noted Dressing: To keep secondary dressing clean, dry, and intact. Advance wound healing options: I recommend advancing healing product epi cord and later epi fix when this wound is more superficial to optimize healing. The indications and benefits, anticipated management and healing process was reviewed. This is medically necessary for limb salvage and he is at risk for further amputations, infections, delayed healing and even . Verbal consent was obtained and prior authorization was also obtained. This was applied according to standard protocol and was secured in place with a wound veil and Steri-Strips. 100% of the product was utilized. He tolerated this well. A secondary dressing was applied. He was advised to keep this clean, dry, and intact until follow-up next week. Offload: Heel weightbearing with surgical shoe. To use assistive device. I recommend fully offloading the entire foot transitioning to nonweightbearing status with a walker or knee roller. This is imperative for healing. It is noted he is unable to proceed forward with the recommended total contact cast. The Vascular: He had prior vascular surgery intervention at [facility] in [place] and also locally with Dr. Wells. On 11-27-2021 he had additional vascular surgery procedure performed; angioplasty of anterior tibial and peroneal arteries with improved foot flow. Host factors: He has uncontrolled diabetes with a self-reported A1c of over 9%. He understands this in combination with his known vascular disease make healing difficult. He is at risk for amputation and he is made this previously clear that he will not proceed forward with this. I recommend nutritional education to optimize healing. I advised him to avoid skipping meals. Advised him to eat a whole food balanced diet that not only focuses on adequate (not excessive) protein but also nutrient dense food intake. He defers dietary aide teacher referral. Resources were provided as reviewed them. This was discussed again today. Infection: Prior h/o cipro for PsA R foot osteo. recently worsened and updated cx now resistance to cipro. PICC placed, 6 weeks iv zosyn, stop date 12/13/21. Surgical clearance fragment from pathology was negative. Surgical clearance fragment from micro had pseudomonas growth. Additional oral cipro was recommended by ID specialist; to follow instructions as advised. Note: Milk speech recognition chief operator hydroformer software was used to create portions of this document. Sound-alike and misspelled words, as well as other chief operator hydroformer errors may be contained in the documentation.
[2022-04-10 10:55] VITALS: BP 140/78; PULSE 73; RESP 20; TEMP 36.2; BMI 28.8
--- NOTE | 2022-04-10 11:38 | PN.PCM_ITS ---
History of Present Illness Date of Service: 04/10/22 Chief Complaint: right foot ulcer / prior first ray resection surgery History of Wound: This 62-year-old diabetic male was seen in clinic today. He is now status post first ray resection/amputation that was performed on 12-11-2021 at [facility]. He was also seen for continuation of antibiotics under infectious disease management. He denies any nausea, vomiting, fever, chills, or other constitutional symptoms. Patient has a history of anxiety and depression secondary to dealing with his chronic hallux ulceration for the last year. He has completed a procedure with Dr. Wells for vascular surgery intervention on 11-27-2021; angioplasty of anterior tibial and peroneal arteries with improved foot flow. He has tried to keep pressure off this site. He is ready to proceed forward with advanced wound healing product application today and did well last week. He takes nutritional supplements occasionally. Progress of Wound: Improving Objective Data Objective Data Vital Signs: Vital Signs Temp Pulse Resp BP O2 Del Method 97.2 F L 73 20 H 140/78 H Room Air 04/10/22 10:55 04/10/22 10:55 04/10/22 10:55 04/10/22 10:55 04/03/22 09:18 Oxygen Delivery Method Room Air Weight: 86.183 kg Body Mass Index (BMI) 28.8 Physical Exam Const alert, oriented x3 and no apparent distress Lymph Lymphatic: no lymphedema noted Skin Wound Narrative: first ray resection site is stable with central updated sutures intact. the dorsal most aspect remains closed. no central tissue plug noted. no purulence, odor , erythema, streaking or eschar or necrosis noted. no bogginess or fluctuance on palpation to the surgical site. compartments remain soft to palpate. Mild serosanguineous drainage only noted and reduced ulcer size and drainage is appreciated Debridement Note Debridement Note Wound debrided: medial forefoot at amputation site Laterality: Right Wound Grade/Stage: 3 Type of Debridement: Excisional debridement Anesthesia Used: 4% Lidocaine Solution Depth: in the subcutaneous layer Percentage of wound debrided: 100 Instrument Used: #15 blade Tissue Removed: fibrous, devitalized subcutaneous, biofilm, slough Severity: Fat Layer Exposed Amount of bleeding with debridement: Mild Bleeding Controlled with: Pressure Patient tolerated procedure: Patient tolerated procedure well Post-Debridement Measurements and Additional Note: Post-Debridement Measurements/Treatment WC - Nurse 1 - General Ulcer Assessment Start: 03/13/22 08:55 Freq: Status: Active Protocol: WC.LOWEXT Activity Type Activity Date Activity User E-sign Co-sign Detail Recorded Client Recorded Date Recorded By Document 03/13/22 08:56 BMF [id number] 03/13/22 09:00 BMF Document 03/20/22 08:50 DL [id number] 03/20/22 08:57 DL Document 03/27/22 09:07 DL Desktop 03/27/22 09:17 DL Document 04/03/22 09:18 BMF [id number] 04/03/22 09:25 BM Document 04/10/22 10:55 DL [id number] 04/10/22 11:01 DL 03/13/22 03/20/22 03/27/22 08:56 08:50 09:07 WC - Today's Visit Information Type of service Follow-up Visit Follow-up Visit Follow-up Visit (Physician/SCIENTIST/ENGINEER (Physician/SCIENTIST/ENGINEER (Physician/SCIENTIST/ENGINEER ) ) ) Arrival Mode Ambulatory Ambulatory Ambulatory Transfer Assistance None None None Patient Identification Verified (Name & Yes Yes Yes ) Patient Requires Transmission-Based No No No Precautions Finger Stick Blood Sugar(mg/dl) (if not checked not checked indicated): Blood Sugar Stated by Stated by Patient Patient Height and Weight Body Mass Index (BMI) 28.8 28.8 28.8 BMI Classification Overweight Overweight Overweight Vital Signs Temperature (97.8 F-99.1 F) 96.1 F L 96.8 F L 97.7 F L Temperature Source Temporal Temporal Temporal Pulse Rate (60-100) 78 74 76 Pulse Location Monitor Monitor Monitor Respiratory Rate (12-18) 18 20 H 22 H Respiratory rate source Observation Observation Observation Oxygen Delivery Method Blood Pressure (90/60-120/80) 151/94 H 117/74 137/62 H Blood Pressure Mean (mm Hg) 113 88 87 Source Monitor Monitor Monitor Position Semi-Fowlers Blood Pressure Location Left Arm History Since Last Visit- (Skip if this is Patient's initial visit) Have you changed medications since your No No No last visit? Any new allergies or adverse reactions No No No Had a fall/change in ADL's that may No No No increase risk of falls Signs or symptoms of abuse and/or No No No neglect since last visit Have you been in the hospital since your No No No last visit? Has dressing in place as prescribed Yes Yes Yes Has compression in place as prescribed No N/A No Has offloadiing in place as prescribed No Yes Yes Experienced any changes in pain level or No No No management Left Footwear Right Footwear Surgical Shoe Surgical Shoe with pressure with pressure relief insole relief insole Pain Scale: 0-10 Numeric Is Patient Pain Free? Yes Yes Yes 04/03/22 04/10/22 09:18 10:55 WC - Today's Visit Information Type of service Follow-up Visit Follow-up Visit (Physician/SCIENTIST/ENGINEER (Physician/SCIENTIST/ENGINEER ) ) Arrival Mode Ambulatory Ambulatory Transfer Assistance None None Patient Identification Verified (Name & Yes Yes ) Patient Requires Transmission-Based No No Precautions Finger Stick Blood Sugar(mg/dl) (if 153 indicated): Blood Sugar Stated by Patient Height and Weight Body Mass Index (BMI) 28.8 28.8 BMI Classification Overweight Overweight Vital Signs Temperature (97.8 F-99.1 F) 97.7 F L 97.2 F L Temperature Source Temporal Temporal Pulse Rate (60-100) 71 73 Pulse Location Monitor Monitor Respiratory Rate (12-18) 16 20 H Respiratory rate source Observation Observation Oxygen Delivery Method Room Air Blood Pressure (90/60-120/80) 137/60 H 140/78 H Blood Pressure Mean (mm Hg) 85 98 Source Monitor Monitor Position Sitting Blood Pressure Location Left Arm History Since Last Visit- (Skip if this is Patient's initial visit) Have you changed medications since your No No last visit? Any new allergies or adverse reactions No No Had a fall/change in ADL's that may No No increase risk of falls Signs or symptoms of abuse and/or No No neglect since last visit Have you been in the hospital since your No Yes last visit? Has dressing in place as prescribed Yes Yes Has compression in place as prescribed Yes No Has offloadiing in place as prescribed Yes Yes Experienced any changes in pain level or No management Left Footwear Regular Shoe Right Footwear Surgical Shoe with pressure relief insole Pain Scale: 0-10 Numeric Is Patient Pain Free? Yes Yes - Nurse 1 - General Ulcer Measurement Start: 03/13/22 08:55 Freq: Status: Active Protocol: Activity Type Activity Date Activity User E-sign Co-sign Detail Recorded Client Recorded Date Recorded By Document 03/13/22 08:56 [facility] [id number] 03/13/22 09:00 [facility] Document 03/20/22 08:50 DL [id number] 03/20/22 08:57 DL Document 03/27/22 09:07 DL Desktop 03/27/22 09:17 DL Document 04/03/22 09:18 [facility] [id number] 04/03/22 09:25 [facility] Document 04/10/22 10:55 DL [id number] 04/10/22 11:01 DL 03/13/22 03/20/22 03/27/22 08:56 08:50 09:07 Wound Center Nurse 1 #4- R FOOT HALLUX AMP SITE post -op -Combined with other wound No -Current Size (cm) - Length 1.3 1.5 0.2 -Current Size (cm) - Width 0.3 0.2 0.4 -Current Size (cm) - Depth 0.4 0.5 0.3 -Total Square Cm 0.39 0.30 0.08 -Date of Last Picture (Recall this field) -Photo Taken Yes No No -Epithelialization -Tunneling No -Undermining/Tunneling No -Circular Undermining No -Exudate Amt Medium Small Small -Exudate Type Serosanguineous Serosanguineous -Wound Margin Distinct, Distinct, Thickened & Outline Outline Rolled Under Attached Attached -Granulation Amt Medium (34-66%) Large (67-100%) Small (1-33%) -Granulation Quality Smolan Smolan Smolan -Slough/Fibrin Yes -Necrosis Amt Medium (34-66%) Small (1-33%) Small (1-33%) -Necrotic Tissue Type Adherent Slough Adherent Slough Adherent Slough -Structure Exposed N/A N/A -Texture (Ashlyn-wound Skin Appearance) Assessed, Scarring Scarring Scarring -Moisture (Ashlyn-wound Skin Appearance) Assessed Dry/Scaly No Abnormality -Color (Ashlyn-wound Skin Appearance) Assessed No Abnormality No Abnormality -Temperature (Ashlyn-wound Skin No Abnormality No Abnormality No Abnormality Appearance) (Pt Warm) (Pt Warm) (Pt Warm) -Tenderness on Palpation (Ashlyn-wound No No No Skin Appearance) -Ulcer Cleansing Wound Cleanser Soap and Water Soap and Water -Foul Odor after Cleansing No No No -Anesthetic Used 5% Lidocaine 5% Lidocaine Gel Gel Lower Limb Edema Present Yes Right Calf (cm) 35.9 34.5 Right Ankle (cm) 20.6 19 04/03/22 04/10/22 09:18 10:55 Wound Center Nurse 1 #4- R FOOT HALLUX AMP SITE post -op -Combined with other wound No -Current Size (cm) - Length 1.8 0.2 -Current Size (cm) - Width 0.3 0.4 -Current Size (cm) - Depth 0.4 0.2 -Total Square Cm 0.54 0.08 -Date of Last Picture (Recall this 04/03/22 field) -Photo Taken Yes No -Epithelialization None Present -Tunneling No -Undermining/Tunneling No -Circular Undermining No -Exudate Amt Small None Present -Exudate Type Serous -Wound Margin Distinct, Thickened Outline Attached -Granulation Amt Small (1-33%) Large (67-100%) -Granulation Quality Red Smolan -Slough/Fibrin Yes -Necrosis Amt Large (67-100%) Small (1-33%) -Necrotic Tissue Type Adherent Slough Adherent Slough -Structure Exposed N/A -Texture (Ashlyn-wound Skin Appearance) Assessed, Scarring Scarring -Moisture (Ashlyn-wound Skin Appearance) Assessed,Dry/ No Abnormality Scaly -Color (Ashlyn-wound Skin Appearance) Assessed No Abnormality -Temperature (Ashlyn-wound Skin No Abnormality No Abnormality Appearance) (Pt Warm) (Pt Warm) -Tenderness on Palpation (Ashlyn-wound Yes Skin Appearance) -Ulcer Cleansing Soap and Water Soap and Water -Foul Odor after Cleansing No No -Anesthetic Used 5% Lidocaine Gel Lower Limb Edema Present Right Calf (cm) 34.5 Right Ankle (cm) 19.3 WC - Nurse 2 - General Ulcer CM Notes Start: 03/13/22 08:55 Freq: Status: Active Protocol: Activity Type Activity Date Activity User E-sign Co-sign Detail Recorded Client Recorded Date Recorded By Document 03/13/22 09:14 NANETTE [id number] 03/13/22 09:17 NANETTE Document 03/20/22 09:08 NANETTE [id number] 03/20/22 09:14 Document 03/27/22 09:26 [id number] 03/27/22 09:28 Document 04/03/22 09:41 [id number] 04/03/22 09:46 Document 04/10/22 11:08 [id number] 04/10/22 11:16 03/13/22 03/20/22 03/27/22 09:14 09:08 09:26 Wound Center Nurse 2 #4- R FOOT HALLUX AMP SITE post -op -Time 09:15 09:13 09:27 -Correct Patient Yes Yes Yes -Correct Side, Site, Position Yes Yes Yes -Correct Procedure Yes Yes Yes -Procedure Performed Yes Yes Yes -Type of Procedure Debridement Debridement Incision & Drainage -Clinical Debridement Subcutaneous Subcutaneous Subcutaneous -Tissue Removed Subcutaneous Subcutaneous Subcutaneous -Post Debridement (cm) - Length 1.7 1.6 0.3 -Post Debridement (cm) - Width 0.2 0.2 0.6 -Post Debridement (cm) - Depth 0.5 0.5 0.2 -Total Square (Post) (cm) 0.34 0.32 0.18 -Area of Debridement (cm) - Length 1.7 1.6 0.3 -Area of Debridement (cm) - Width 0.2 0.2 0.6 -Total Square (Area) (cm) 0.34 0.32 0.18 -Tunneling No No -Undermining/Tunneling No No No -Circular Undermining No No No -Wound/Ulcer Outcome Not Healed Not Healed Not Healed -Ulcer Cleansing Rinsed/ Rinsed/ Rinsed/ Irrigated with Irrigated with Irrigated with Saline Saline Saline -Foul Odor after Cleansing No No No -Bioengineered Tissue Yes Yes Yes -Type of Bioengineered Tissue Epifix 18mm Epifix 18mm Epifix 18mm Disc Disc Disc -Expiration Date 12/09/26 12/09/26 01/09/27 -Product Lot Number [id number] -Percent Used 100 100 100 -Lot number of Saline Used [id number] -Bleeding Controlled with Pressure Pressure Pressure -Treatment Response Procedure Procedure Procedure Tolerated Well Tolerated Well Tolerated Well -Offloading Yes Yes Yes -Type of Offloading Surgical Shoe Surgical Shoe Surgical Shoe -Debridement - Subq, 1st 20sq cm No No No -Apply Skin Sub - 1st 25 sq cm - Feet 1 1 1 -Epifix 18mm Disc 3 3 3 Pain Scale: 0-10 Numeric Is Patient Pain Free? Yes Yes Yes 04/03/22 04/10/22 09:41 11:08 Wound Center Nurse 2 #4- R FOOT HALLUX AMP SITE post -op -Time 09:41 11:14 -Correct Patient Yes Yes -Correct Side, Site, Position Yes Yes -Correct Procedure Yes Yes -Procedure Performed Yes Yes -Type of Procedure Debridement Debridement -Clinical Debridement Subcutaneous Subcutaneous -Tissue Removed Subcutaneous Subcutaneous -Post Debridement (cm) - Length 1.8 0.2 -Post Debridement (cm) - Width 0.3 0.5 -Post Debridement (cm) - Depth 0.3 0.2 -Total Square (Post) (cm) 0.54 0.10 -Area of Debridement (cm) - Length 1.8 0.2 -Area of Debridement (cm) - Width 0.3 0.5 -Total Square (Area) (cm) 0.54 0.10 -Tunneling No No -Undermining/Tunneling No No -Circular Undermining No No -Wound/Ulcer Outcome Not Healed Not Healed -Ulcer Cleansing Rinsed/ Rinsed/ Irrigated with Irrigated with Saline Saline -Foul Odor after Cleansing No No -Bioengineered Tissue Yes Yes -Type of Bioengineered Tissue Epifix 18mm Epifix 18mm Disc Disc -Expiration Date 01/09/27 12/09/26 -Product Lot Number [id number] -Percent Used 100 100 -Lot number of Saline Used [id number] -Bleeding Controlled with Pressure Pressure -Treatment Response Procedure Procedure Tolerated Well Tolerated Well -Offloading Yes Yes -Type of Offloading Surgical Shoe Surgical Shoe -Debridement - Subq, 1st 20sq cm No No -Apply Skin Sub - 1st 25 sq cm - Feet 1 1 -Epifix 18mm Disc 3 3 Pain Scale: 0-10 Numeric Is Patient Pain Free? Yes Yes WC - Nurse 3 - General Ulcer D/C NN Start: 03/13/22 08:55 Freq: Status: Active Protocol: Activity Type Activity Date Activity User E-sign Co-sign Detail Recorded Client Recorded Date Recorded By Document 03/13/22 09:27 [id number] 03/13/22 09:28 Document 03/20/22 09:20 [id number] 03/20/22 09:20 Document 03/27/22 09:41 [facility] [id number] 03/27/22 09:41 [facility] Document 04/03/22 09:53 [facility] [id number] 04/03/22 09:53 [facility] 03/13/22 03/20/22 03/27/22 09:27 09:20 09:41 Wound Care Nurse 3 #4- R FOOT HALLUX AMP SITE post -op -Ulcer Cleansing Rinsed/ Rinsed/ Irrigated with Irrigated with Saline Saline -Foul Odor after Cleansing No No -Other Dressing epifix -Primary Dressing Covered/Secured with Dry Gauze & Dry Gauze & Dry Gauze & Roll Gauze, Roll Gauze, Roll Gauze, Secured with Secured with Secured with Tape Tape Tape,Other -Other Covering abd Right -Tubular Bandage Single Layer Single Layer Single Layer -Size of Tubigrip Used Size D Size D Size E -Size D ($) 1 0 -Size E ($) 1 -Other Treatment Response Procedure Tolerated Well Pain Scale: 0-10 Numeric Is Patient Pain Free? Yes Yes Yes WC - Visit Discharge Discharge Condition Stable Stable Stable Ambulatory Status Ambulatory Ambulatory Ambulatory Transportation Private Auto Private Auto Private Auto Medication Reconcilliation completed & Yes Yes provided to patient/care provider Clinical Summary of Care Provided Yes Yes 04/03/22 09:53 Wound Care Nurse 3 #4- R FOOT HALLUX AMP SITE post -op -Ulcer Cleansing -Foul Odor after Cleansing -Other Dressing epifix -Primary Dressing Covered/Secured with Dry Gauze & Roll Gauze, Secured with Tape -Other Covering abd Right -Tubular Bandage -Size of Tubigrip Used -Size D ($) -Size E ($) -Other applied own single layer tubi Treatment Response Procedure Tolerated Well Pain Scale: 0-10 Numeric Is Patient Pain Free? Yes WC - Visit Discharge Discharge Condition Stable Ambulatory Status Ambulatory Transportation Private Auto Medication Reconcilliation completed & provided to patient/care provider Clinical Summary of Care Provided Assessment/Plan Assessment/Plan (1) Ulcer of right foot with necrosis of bone: CODE(S): L97.514 - Non-pressure chronic ulcer of other part of right foot with necrosis of bone (2) Type 2 diabetes mellitus with diabetic polyneuropathy: CODE(S): E11.42 - Type 2 diabetes mellitus with diabetic polyneuropathy (3) Hallux limitus of right foot: CODE(S): M20.5X1 - Other deformities of toe(s) (acquired), right foot (4) Osteomyelitis: CODE(S): M86.9 - Osteomyelitis, unspecified QUALIFIERS: Osteomyelitis type: other acute Osteomyelitis location: foot Laterality: right Qualified Code(s): M86.171 - Other acute osteomyelitis, right ankle and foot (5) Other specified peripheral vascular diseases: CODE(S): I73.89 - Other specified peripheral vascular diseases (6) Delayed wound healing: CODE(S): T14.8XXD - Other injury of unspecified body region, subsequent encounter (7) 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 He was reassured there is no erythema or purulence to the foot. Debridement performed as noted Dressing: To keep secondary dressing clean, dry, and intact. Advance wound healing options: I recommend advancing healing product epi cord and later epi fix when this wound is more superficial to optimize healing. The indications and benefits, anticipated management and healing process was reviewed. This is medically necessary for limb salvage and he is at risk for further amputations, infections, delayed healing and even . Verbal consent was obtained and prior authorization was also obtained. This was applied according to standard protocol and was secured in place with a wound veil and Steri-Strips. 100% of the product was utilized. He tolerated this well. A secondary dressing was applied. He was advised to keep this clean, dry, and intact until follow-up next week. Offload: Heel weightbearing with surgical shoe. To use assistive device. I recommend fully offloading the entire foot transitioning to nonweightbearing status with a walker or knee roller. This is imperative for healing. It is noted he is unable to proceed forward with the recommended total contact cast. The Vascular: He had prior vascular surgery intervention at [facility] in [place] and also locally with Dr. Wells. On 11-27-2021 he had additional vascular surgery procedure performed; angioplasty of anterior tibial and peroneal arteries with improved foot flow. Host factors: He has uncontrolled diabetes with a self-reported A1c of over 9%. He understands this in combination with his known vascular disease make healing difficult. He is at risk for amputation and he is made this previously clear that he will not proceed forward with this. I recommend nutritional education to optimize healing. I advised him to avoid skipping meals. Advised him to eat a whole food balanced diet that not only focuses on adequate (not excessive) protein but also nutrient dense food intake. He defers supervisor photocomposition referral. Resources were provided as reviewed them. This was discussed again today. Infection: Prior h/o cipro for PsA R foot osteo. recently worsened and updated cx now resistance to cipro. PICC placed, 6 weeks iv zosyn, stop date 12/13/21. S urgical clearance fragment from pathology was negative. Surgical clearance fragment from micro had pseudomonas growth. Additional oral cipro was recommended by ID specialist; to follow instructions as advised. Note: [employer] speech recognition cut off sawyer log software was used to create portions of this document. Sound-alike and misspelled words, as well as other cut off sawyer log errors may be contained in the documentation.
== END 2022-04-10 23:59 | disposition home or self-care (01) ==
LOC: WC 10:45
PROVIDERS: PCP Family Medicine; Visit Provider Podiatrist
DX: E11.621 Type 2 diabetes mellitus with foot ulcer (principal); E11.51 Type 2 diabetes mellitus with diabetic peripheral angiopathy without gangrene; L97.512 Non-pressure chronic ulcer of other part of right foot with fat layer exposed; M86.171 Other acute osteomyelitis, right ankle and foot; E11.42 Type 2 diabetes mellitus with diabetic polyneuropathy; E11.69 Type 2 diabetes mellitus with other specified complication; M20.5X1 Other deformities of toe(s) (acquired), right foot
CPT/HCPCS: 15275; Q4186

== ENCOUNTER 2022-05-08 08:45 | Outpatient (RCR) | payer BC, SELFPAY ==
[2022-04-11 00:20] VITALS: BP 140/78; PULSE 73; RESP 20; TEMP 36.2; BMI 28.8
[2022-04-17 09:16] VITALS: BP 132/64; PULSE 97; RESP 18; BMI 28.8
--- NOTE | 2022-04-17 11:25 | PN.PCM_ITS ---
History of Present Illness Date of Service: 04/17/22 Chief Complaint: right foot ulcer / prior first ray resection surgery History of Wound: This 62-year-old diabetic male was seen in clinic today. He is now status post first ray resection/amputation that was performed on 12-11-2021 at [facility]. He was also seen for continuation of antibiotics under infectious disease management. He denies any nausea, vomiting, fever, chills, or other constitutional symptoms. Patient has a history of anxiety and depression secondary to dealing with his chronic hallux ulceration for the last year. He has completed a procedure with Dr. Wells for vascular surgery intervention on 11-27-2021; angioplasty of anterior tibial and peroneal arteries with improved foot flow. He has tried to keep pressure off this site. He completed a course of advanced wound healing product with improvement (epi fix). He takes nutritional supplements occasionally. Progress of Wound: Improving Objective Data Objective Data Vital Signs: Vital Signs Temp Pulse Resp BP 97.2 F L 97 18 132/64 H 04/11/22 00:20 04/17/22 09:16 04/17/22 09:16 04/17/22 09:16 Weight: 86.183 kg Body Mass Index (BMI) 28.8 Physical Exam Const alert, oriented x3 and no apparent distress Lymph Lymphatic: no lymphedema noted Skin Wound Narrative: first ray resection site is stable with central updated sutures intact. the dorsal most aspect remains closed. no central tissue plug noted. no purulence, odor , erythema, streaking or eschar or necrosis noted. no bogginess or fluctuance on palpation to the surgical site. compartments remain soft to palpate. Mild serosanguineous drainage only noted and reduced ulcer size and drainage is appreciated. The ulcer is filling in from a depth standpoint and the tissue is mobile Debridement Note Debridement Note Wound debrided: medial forefoot at amputation site Laterality: Right Wound Grade/Stage: 3 Type of Debridement: Excisional debridement Anesthesia Used: 4% Lidocaine Solution Depth: in the subcutaneous layer Percentage of wound debrided: 100 Instrument Used: #15 blade Tissue Removed: fibrous, devitalized subcutaneous, biofilm, slough Severity: Fat Layer Exposed Amount of bleeding with debridement: Mild Bleeding Controlled with: Pressure Patient tolerated procedure: Patient tolerated procedure well Post-Debridement Measurements and Additional Note: Post-Debridement Measurements/Treatment WC - Nurse 1 - General Ulcer Assessment Start: 04/17/22 09:16 Freq: Status: Active Protocol: JAE.JOSSY Activity Type Activity Date Activity User E-sign Co-sign Detail Recorded Client Recorded Date Recorded By Document 04/17/22 09:16 RB [employer] 04/17/22 09:17 RB 04/17/22 09:16 - Today's Visit Information Type of service Follow-up Visit (Physician/CORPORATE WELLNESS COORDINATOR ) Arrival Mode Ambulatory Transfer Assistance None Patient Identification Verified (Name & Yes ) Patient Requires Transmission-Based No Precautions Height and Weight Body Mass Index (BMI) 28.8 BMI Classification Overweight Vital Signs Pulse Rate (60-100) 97 Pulse Location Monitor Respiratory Rate (12-18) 18 Respiratory rate source Observation Blood Pressure (90/60-120/80) 132/64 H Blood Pressure Mean (mm Hg) 86 Source Monitor Position Semi-Fowlers Blood Pressure Location Left Arm History Since Last Visit- (Skip if this is Patient's initial visit) Have you changed medications since your No last visit? Any new allergies or adverse reactions No Had a fall/change in ADL's that may No increase risk of falls Signs or symptoms of abuse and/or No neglect since last visit Have you been in the hospital since your No last visit? Has dressing in place as prescribed Yes Has compression in place as prescribed No Has offloadiing in place as prescribed No Experienced any changes in pain level or Yes management Right Footwear Surgical Shoe with pressure relief insole Pain Scale: 0-10 Numeric Is Patient Pain Free? Yes - Nurse 1 - General Ulcer Measurement Start: 04/17/22 09:16 Freq: Status: Active Protocol: Activity Type Activity Date Activity User E-sign Co-sign Detail Recorded Client Recorded Date Recorded By Document 04/17/22 09:16 RB [employer] 04/17/22 09:17 04/17/22 09:16 Wound Center Nurse 1 #4- R FOOT HALLUX AMP SITE post -op -Combined with other wound No -Current Size (cm) - Length 0.1 -Current Size (cm) - Width 0.1 -Current Size (cm) - Depth 0.1 -Total Square Cm 0.01 -Tunneling No -Undermining/Tunneling No -Circular Undermining No -Granulation Amt Small (1-33%) -Granulation Quality [place] -Slough/Fibrin Yes -Necrosis Amt Large (67-100%) -Necrotic Tissue Type Adherent Slough -Structure Exposed N/A -Texture (Ashlyn-wound Skin Appearance) Assessed, Scarring -Moisture (Ashlyn-wound Skin Appearance) Assessed -Color (Ashlyn-wound Skin Appearance) Assessed -Temperature (Ashlyn-wound Skin No Abnormality Appearance) (Pt Warm) -Tenderness on Palpation (Ashlyn-wound No Skin Appearance) -Ulcer Cleansing Wound Cleanser -Foul Odor after Cleansing No -Anesthetic Used 5% Lidocaine Gel WC - Nurse 2 - General Ulcer CM Notes Start: 04/17/22 09:16 Freq: Status: Active Protocol: Activity Type Activity Date Activity User E-sign Co-sign Detail Recorded Client Recorded Date Recorded By Document 04/17/22 09:22 NANETTE [id number] 04/17/22 09:29 NANETTE 04/17/22 09:22 Wound Center Nurse 2 -Time 09:28 -Correct Patient Yes -Correct Side, Site, Position Yes -Correct Procedure Yes -Procedure Performed Yes -Type of Procedure Debridement -Clinical Debridement Subcutaneous -Tissue Removed Subcutaneous -Post Debridement (cm) - Length 0.6 -Post Debridement (cm) - Width 0.1 -Post Debridement (cm) - Depth 0.3 -Total Square (Post) (cm) 0.06 -Area of Debridement (cm) - Length 0.6 -Area of Debridement (cm) - Width 0.1 -Total Square (Area) (cm) 0.06 -Tunneling No -Undermining/Tunneling No -Circular Undermining No -Wound/Ulcer Outcome Not Healed -Ulcer Cleansing Rinsed/ Irrigated with Saline -Foul Odor after Cleansing No -Bioengineered Tissue No -Injectable Lidocaine (%) 1 -Lidocaine (ml) 4 -Bleeding Controlled with Pressure -Treatment Response Procedure Tolerated Well -Offloading Yes -Type of Offloading Surgical Shoe -Debridement - Subq, 1st 20sq cm Yes Pain Scale: 0-10 Numeric Is Patient Pain Free? Yes JAE - Nurse 3 - General Ulcer D/C NN Start: 04/17/22 09:16 Freq: Status: Active Protocol: Activity Type Activity Date Activity User E-sign Co-sign Detail Recorded Client Recorded Date Recorded By Document 04/17/22 09:52 ANDRA [id number] 04/17/22 09:53 DL 04/17/22 09:52 Wound Care Nurse 3 #4- R FOOT HALLUX AMP SITE post -op -Foul Odor after Cleansing No -Primary Dressing Covered/Secured with Dry Gauze & Roll Gauze, Secured with Tape Treatment Response Procedure Tolerated Well Pain Scale: 0-10 Numeric Is Patient Pain Free? Yes WC - Visit Discharge Discharge Condition Stable Ambulatory Status Ambulatory Transportation Private [facility] Facility Type Home Health Orders Sent Yes Assessment/Plan Assessment/Plan (1) Ulcer of right foot with necrosis of bone: CODE(S): L97.514 - Non-pressure chronic ulcer of other part of right foot with necrosis of bone (2) Type 2 diabetes mellitus with diabetic polyneuropathy: CODE(S): E11.42 - Type 2 diabetes mellitus with diabetic polyneuropathy (3) Hallux limitus of right foot: CODE(S): M20.5X1 - Other deformities of toe(s) (acquired), right foot (4) Osteomyelitis: CODE(S): M86.9 - Osteomyelitis, unspecified QUALIFIERS: Osteomyelitis type: other acute Osteomyelitis location: foot Laterality: right Qualified Code(s): M86.171 - Other acute osteomyelitis, right ankle and foot (5) Other specified peripheral vascular diseases: CODE(S): I73.89 - Other specified peripheral vascular diseases (6) Delayed wound healing: CODE(S): T14.8XXD - Other injury of unspecified body region, subsequent encounter (7) 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 He was reassured there is no erythema or purulence to the foot. Debridement performed as noted Dressing: To keep secondary dressing clean, dry, and intact; dry gauze will be left in place this week. I recommended additional delayed primary closure with 3-0 Prolene today. Verbal consent was obtained. 1.5 cc of 1% lidocaine plain was administered locally for anesthetic purposes. A couple of simple sutures were applied to reapproximate the skin. This will likely need to be in place for 3 to 4 weeks. Expectations include healing or at least reduced depth of the ulcer. He tolerated this well. Advance wound healing options: He completed a course of epi fix and responded well. Offload: Heel weightbearing with surgical shoe. To use assistive device. I recommend fully offloading the entire foot transitioning to nonweightbearing status with a walker or knee roller. This is imperative for healing. It is noted he is unable to proceed forward with the recommended total contact cast. Vascular: He had prior vascular surgery intervention at [facility] in [facility] and also locally with Dr. Wells. On 11-27-2021 he had additional vascular surgery procedure performed; angioplasty of anterior tibial and peroneal arteries with improved foot flow. Host factors: He has uncontrolled diabetes with a self-reported A1c of over 9%. He understands this in combination with his known vascular disease make healing difficult. He is at risk for amputation and he is made this previously clear that he will not proceed forward with this. I recommend nutritional education to optimize healing. I advised him to avoid skipping meals. Advised him to eat a whole food balanced diet that not only focuses on adequate (not excessive) protein but also nutrient dense food intake. He defers family support worker referral. Infection: Prior h/o cipro for PsA R foot osteo. recently worsened and updated cx now resistance to cipro. PICC placed, 6 weeks iv zosyn, stop date 12/13/21. Surgical clearance fragment from pathology was negative. Surgical clearance fragment from micro had pseudomonas growth. Additional oral cipro was recommended by ID specialist; to follow instructions as advised. Note: [employer] speech recognition volunteer fire fighter software was used to create portions of this document. Sound-alike and misspelled words, as well as other volunteer fire fighter errors may be contained in the documentation. 20 minutes was spent on this encounter. This included face to face and non face to face care including preparing for the visit, reviewing the history, performing the exam, counseling and providing education to the patient, family, or caregiver, ordering medications/test/ procedures if indicated as documented, communicating with other healthcare providers, documenting information in the medical record, interpreting / sharing this information when indicated as documented, and care coordination.
[2022-04-24 14:04] VITALS: BP 155/84; PULSE 83; TEMP 36.1; BMI 28.8
--- NOTE | 2022-04-24 15:22 | PN.PCM_ITS ---
History of Present Illness Date of Service: 04/24/22 Chief Complaint: right foot ulcer / prior first ray resection surgery History of Wound: This 62-year-old diabetic male was seen in clinic today. He is now status post first ray resection/amputation that was performed on 12-11-2021 at [facility]. He was also seen for continuation of antibiotics under infectious disease management. He denies any nausea, vomiting, fever, chills, or other constitutional symptoms. Patient has a history of anxiety and depression secondary to dealing with his chronic hallux ulceration for the last year. He has completed a procedure with Dr. Wells for vascular surgery intervention on 11-27-2021; angioplasty of anterior tibial and peroneal arteries with improved foot flow. He has tried to keep pressure off this site. He completed a course of advanced wound healing product with improvement (epi fix). He takes nutritional supplements occasionally. Progress of Wound: Right foot sutures are dry and intact. No drainage, no redness. Healing well. Objective Data Objective Data Vital Signs: Vital Signs Temp Pulse Resp BP 97.0 F L 83 18 155/84 H 04/24/22 14:04 04/24/22 14:04 04/17/22 09:16 04/24/22 14:04 Weight: 190 lb Body Mass Index (BMI) 28.8 Charges/Coding Visit Charges Office Visits / Consults: 00689 OV L3 Est Physical Exam Const alert, oriented x3 and no apparent distress HEENT normocephalic Lymph Lymphatic: no lymphedema noted Resp normal respiratory effort Effort and Inspection: able to speak in complete sentences Cardio regular rate Extremity normal capillary refill Extremity Narrative: Right pedal pulse palpabale. Skin Wound Narrative: Right foot sutures dry and intact. No sign of infection, no drainage. Neuro oriented x3 Sensorium / Orientation: awake and alert Psych Appearance: grossly normal Debridement Note Debridement Note No debridement was completed: No debridement was completed today Post-Debridement Measurements and Additional Note: Post-Debridement Measurements/Treatment WC - Nurse 1 - General Ulcer Assessment Start: 04/17/22 09:16 Freq: Status: Active Protocol: REHAN Activity Type Activity Date Activity User E-sign Co-sign Detail Recorded Client Recorded Date Recorded By Document 04/17/22 09:16 RB Desktop 04/17/22 09:17 RB Document 04/24/22 14:04 CANDIDA [id number] 04/24/22 14:08 CANDIDA 04/17/22 04/24/22 09:16 14:04 - Today's Visit Information Type of service Follow-up Visit Follow-up Visit (Physician/WEB DESIGN SPECIALIST (Physician/WEB DESIGN SPECIALIST ) ) Arrival Mode Ambulatory Ambulatory Transfer Assistance None Patient Identification Verified (Name & Yes Yes ) Patient Requires Transmission-Based No Precautions Height and Weight Body Mass Index (BMI) 28.8 28.8 BMI Classification Overweight Overweight Vital Signs Temperature (97.8 F-99.1 F) 97.0 F L Temperature Source Temporal Pulse Rate (60-100) 97 83 Pulse Location Monitor Monitor Respiratory Rate (12-18) 18 Respiratory rate source Observation Blood Pressure (90/60-120/80) 132/64 H 155/84 H Blood Pressure Mean (mm Hg) 86 107 Source Monitor Monitor Position Semi-Fowlers Semi-Fowlers Blood Pressure Location Left Arm Right Arm History Since Last Visit- (Skip if this is Patient's initial visit) Have you changed medications since your No No last visit? Any new allergies or adverse reactions No No Had a fall/change in ADL's that may No No increase risk of falls Signs or symptoms of abuse and/or No No neglect since last visit Have you been in the hospital since your No No last visit? Has dressing in place as prescribed Yes Yes Has compression in place as prescribed No Yes Has offloadiing in place as prescribed No N/A Experienced any changes in pain level or Yes No management Left Footwear Regular Shoe Right Footwear Surgical Shoe Regular Shoe with pressure relief insole Pain Scale: 0-10 Numeric Is Patient Pain Free? Yes Yes - Nurse 1 - General Ulcer Measurement Start: 04/17/22 09:16 Freq: Status: Active Protocol: Activity Type Activity Date Activity User E-sign Co-sign Detail Recorded Client Recorded Date Recorded By Document 04/17/22 09:16 RB Desktop 04/17/22 09:17 RB Document 04/24/22 14:04 CANDIDA [id number] 04/24/22 14:08 CANDIDA 04/17/22 04/24/22 09:16 14:04 Wound Center Nurse 1 #4- R FOOT HALLUX AMP SITE post -op -Combined with other wound No -Current Size (cm) - Length 0.1 0.1 -Current Size (cm) - Width 0.1 0.1 -Current Size (cm) - Depth 0.1 0.1 -Total Square Cm 0.01 0.01 -Tunneling No -Undermining/Tunneling No -Circular Undermining No -Granulation Amt Small (1-33%) -Granulation Quality [place] -Slough/Fibrin Yes -Necrosis Amt Large (67-100%) -Necrotic Tissue Type Adherent Slough -Structure Exposed N/A -Texture (Ashlyn-wound Skin Appearance) Assessed, No Abnormality, Scarring Assessed -Moisture (Ashlyn-wound Skin Appearance) Assessed No Abnormality, Assessed -Color (Ashlyn-wound Skin Appearance) Assessed No Abnormality, Assessed -Temperature (Ashlyn-wound Skin No Abnormality No Abnormality Appearance) (Pt Warm) (Pt Warm) -Tenderness on Palpation (Ashlyn-wound No No Skin Appearance) -Ulcer Cleansing Wound Cleanser Rinsed/ Irrigated with Saline -Foul Odor after Cleansing No No -Anesthetic Used 5% Lidocaine Gel 04/24/22 14:07 Nursing Note by Addie Cannon sutures intact Initialized on 04/24/22 14:07 - END OF NOTE WC - Nurse 2 - General Ulcer CM Notes Start: 04/17/22 09:16 Freq: Status: Active Protocol: Activity Type Activity Date Activity User E-sign Co-sign Detail Recorded Client Recorded Date Recorded By Document 04/17/22 09:22 [id number] 04/17/22 09:29 Document 04/24/22 14:20 [id number] 04/24/22 14:21 04/17/22 04/24/22 09:22 14:20 Wound Center Nurse 2 #4- R FOOT HALLUX AMP SITE post -op -Time 09:28 -Correct Patient Yes No -Correct Side, Site, Position Yes No -Correct Procedure Yes No -Procedure Performed Yes No -Type of Procedure Debridement -Clinical Debridement Subcutaneous -Tissue Removed Subcutaneous -Post Debridement (cm) - Length 0.6 -Post Debridement (cm) - Width 0.1 -Post Debridement (cm) - Depth 0.3 -Total Square (Post) (cm) 0.06 -Area of Debridement (cm) - Length 0.6 -Area of Debridement (cm) - Width 0.1 -Total Square (Area) (cm) 0.06 -Tunneling No -Undermining/Tunneling No -Circular Undermining No -Wound/Ulcer Outcome Not Healed Not Healed -Ulcer Cleansing Rinsed/ Irrigated with Saline -Foul Odor after Cleansing No -Bioengineered Tissue No -Injectable Lidocaine (%) 1 -Lidocaine (ml) 4 -Bleeding Controlled with Pressure -Treatment Response Procedure Tolerated Well -Offloading Yes -Type of Offloading Surgical Shoe -Debridement - Subq, 1st 20sq cm Yes Pain Scale: 0-10 Numeric Is Patient Pain Free? Yes Yes - Nurse 3 - General Ulcer D/C NN Start: 04/17/22 09:16 Freq: Status: Active Protocol: Activity Type Activity Date Activity User E-sign Co-sign Detail Recorded Client Recorded Date Recorded By Document 04/17/22 09:52 DL [id number] 04/17/22 09:53 DL Document 04/24/22 14:27 [facility] [id number] 04/24/22 14:28 [facility] 04/17/22 04/24/22 09:52 14:27 Wound Care Nurse 3 #4- R FOOT HALLUX AMP SITE post -op -Foul Odor after Cleansing No -Primary Dressing Covered/Secured with Dry Gauze & Dry Gauze & Roll Gauze, Roll Gauze, Secured with Secured with Tape Tape -Other Covering DRSG PER KR SECRETARY ADMINISTRATIVE ASSISTANT Right -Tubular Bandage Single Layer -Size of Tubigrip Used Size D -Size D ($) 1 Treatment Response Procedure Procedure Tolerated Well Tolerated Well Pain Scale: 0-10 Numeric Is Patient Pain Free? Yes Yes - Visit Discharge Discharge Condition Stable Stable Ambulatory Status Ambulatory Ambulatory Transportation Private Auto Private Auto Facility Type Home Health Orders Sent Yes Assessment/Plan Assessment/Plan (1) Ulcer of right foot with necrosis of bone: CODE(S): L97.514 - Non-pressure chronic ulcer of other part of right foot with necrosis of bone (2) Type 2 diabetes mellitus with diabetic polyneuropathy: CODE(S): E11.42 - Type 2 diabetes mellitus with diabetic polyneuropathy (3) Hallux limitus of right foot: CODE(S): M20.5X1 - Other deformities of toe(s) (acquired), right foot (4) Osteomyelitis: CODE(S): M86.9 - Osteomyelitis, unspecified QUALIFIERS: Osteomyelitis type: other acute Osteomyelitis location: foot Laterality: right Qualified Code(s): M86.171 - Other acute osteomyelitis, right ankle and foot (5) Other specified peripheral vascular diseases: CODE(S): I73.89 - Other specified peripheral vascular diseases (6) Delayed wound healing: CODE(S): T14.8XXD - Other injury of unspecified body region, subsequent encounter (7) 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 No debridement was performed. His delayed primary closure sutures which were placed last week are dry and intact. No drainage, no sign of infection. Keep covered with dry gauze. Tubigrip for compression. Advance wound healing options: He completed a course of epi fix and responded well. Offload: Heel weightbearing with surgical shoe. To use assistive device. I recommend fully offloading the entire foot transitioning to nonweightbearing status with a walker or knee roller. This is imperative for healing. It is noted he is unable to proceed forward with the recommended total contact cast. Vascular: He had prior vascular surgery intervention at [facility] in [place] and also locally with Dr. Wells. On 11-27-2021 he had additional vascular surgery procedure performed; angioplasty of anterior tibial and peroneal arteries with improved foot flow. Host factors: He has uncontrolled diabetes with a self-reported A1c of over 9%. He understands this in combination with his known vascular disease make healing difficult. He is at risk for amputation and he is made this previously clear that he will not proceed forward with this. I recommend nutritional education to optimize healing. I advised him to avoid skipping meals. Advised him to eat a whole food balanced diet that not only focuses on adequate (not excessive) protein but also nutrient dense food intake. He defers hand decorator referral. Infection: Prior h/o cipro for PsA R foot osteo. recently worsened and updated cx now resistance to cipro. PICC placed, 6 weeks iv zosyn, stop date 12/13/21. Surgical clearance fragment from pathology was negative. Surgical clearance fragment from micro had pseudomonas growth. Additional oral cipro was recommended by ID specialist; to follow instructions as advised. Follow up one week. Call or come in sooner if develop any concerns.
[2022-05-01 09:08] VITALS: BP 136/72; PULSE 75; RESP 18; TEMP 36.2; BMI 28.8
--- NOTE | 2022-05-01 12:46 | PCM.WC.PN ---
History of Present Illness Date of Service: 05/01/22 Chief Complaint: right foot ulcer / prior first ray resection surgery History of Wound: This 62-year-old diabetic male was seen in clinic today. He is now status post first ray resection/amputation that was performed on 12-11-2021 at [facility]. He was also seen for continuation of antibiotics under infectious disease management. He denies any nausea, vomiting, fever, chills, or other constitutional symptoms. Patient has a history of anxiety and depression secondary to dealing with his chronic hallux ulceration for the last year. He has completed a procedure with Dr. Wells for vascular surgery intervention on 11-27-2021; angioplasty of anterior tibial and peroneal arteries with improved foot flow. He has tried to keep pressure off this site. He completed a course of advanced wound healing product with improvement (epi fix). He takes nutritional supplements occasionally. Progress of Wound: Right foot sutures are dry and intact. No drainage, no redness. Healing well. Objective Data Objective Data Vital Signs: Vital Signs Temp Pulse Resp BP 97.1 F L 75 18 136/72 H 05/01/22 09:08 05/01/22 09:08 05/01/22 09:08 05/01/22 09:08 Weight: 190 lb Body Mass Index (BMI) 28.8 Charges/Coding Visit Charges Office Visits / Consults: 29894 OV L3 Est Physical Exam Const alert, oriented x3 and no apparent distress HEENT normocephalic Lymph Lymphatic: no lymphedema noted Resp normal respiratory effort Effort and Inspection: able to speak in complete sentences Cardio regular rate Extremity normal capillary refill Extremity Narrative: Right pedal pulse palpabale. Skin Wound Narrative: Right foot sutures dry and intact. No sign of infection, no drainage. Neuro oriented x3 Sensorium / Orientation: awake and alert Psych Appearance: grossly normal Debridement Note Debridement Note No debridement was completed: No debridement was completed today Post-Debridement Measurements and Additional Note: Post-Debridement Measurements/Treatment WC - Nurse 1 - General Ulcer Assessment Start: 04/17/22 09:16 Freq: Status: Active Protocol: REHAN Activity Type Activity Date Activity User E-sign Co-sign Detail Recorded Client Recorded Date Recorded By Document 04/17/22 09:16 RB Desktop 04/17/22 09:17 RB Document 09/14/22 14:04 KR [id number] 04/24/22 14:08 KR Document 05/01/22 09:08 DL [id number] 05/01/22 09:12 DL 04/17/22 04/24/22 05/01/22 09:16 14:04 09:08 WC - Today's Visit Information Type of service Follow-up Visit Follow-up Visit Follow-up Visit (Physician/DYEING MACHINE BACK TENDER (Physician/DYEING MACHINE BACK TENDER (Physician/DYEING MACHINE BACK TENDER ) ) ) Arrival Mode Ambulatory Ambulatory Ambulatory Transfer Assistance None None Patient Identification Verified (Name & Yes Yes Yes ) Patient Requires Transmission-Based No No Precautions Height and Weight Body Mass Index (BMI) 28.8 28.8 28.8 BMI Classification Overweight Overweight Overweight Vital Signs Temperature (97.8 F-99.1 F) 97.0 F L 97.1 F L Temperature Source Temporal Temporal Pulse Rate (60-100) 97 83 75 Pulse Location Monitor Monitor Monitor Respiratory Rate (12-18) 18 18 Respiratory rate source Observation Observation Blood Pressure (90/60-120/80) 132/64 H 155/84 H 136/72 H Blood Pressure Mean (mm Hg) 86 107 93 Source Monitor Monitor Monitor Position Semi-Fowlers Semi-Fowlers Blood Pressure Location Left Arm Right Arm Comment sutures intact History Since Last Visit- (Skip if this is Patient's initial visit) Have you changed medications since your No No No last visit? Any new allergies or adverse reactions No No No Had a fall/change in ADL's that may No No No increase risk of falls Signs or symptoms of abuse and/or No No No neglect since last visit Have you been in the hospital since your No No No last visit? Has dressing in place as prescribed Yes Yes Yes Has compression in place as prescribed No Yes Yes Has offloadiing in place as prescribed No N/A Yes Experienced any changes in pain level or Yes No No management Left Footwear Regular Shoe Right Footwear Surgical Shoe Regular Shoe Surgical Shoe with pressure with pressure relief insole relief insole Pain Scale: 0-10 Numeric Is Patient Pain Free? Yes Yes Yes WC - Nurse 1 - General Ulcer Measurement Start: 04/17/22 09:16 Freq: Status: Active Protocol: Activity Type Activity Date Activity User E-sign Co-sign Detail Recorded Client Recorded Date Recorded By Document 09/07/22 09:16 RB Desktop 04/17/22 09:17 RB Document 04/24/22 14:04 KR [id number] 04/24/22 14:08 KR Document 05/01/22 09:08 DL [id number] 05/01/22 09:12 DL 04/17/22 04/24/22 05/01/22 09:16 14:04 09:08 Wound Center Nurse 1 #4- R FOOT HALLUX AMP SITE post -op -Combined with other wound No -Current Size (cm) - Length 0.1 0.1 0.1 -Current Size (cm) - Width 0.1 0.1 0.1 -Current Size (cm) - Depth 0.1 0.1 0.1 -Total Square Cm 0.01 0.01 0.01 -Photo Taken Yes -Tunneling No -Undermining/Tunneling No -Circular Undermining No -Exudate Amt None Present -Wound Margin Indistinct, Non -Visible -Granulation Amt Small (1-33%) Large (67-100%) -Granulation Quality [place] -Slough/Fibrin Yes -Necrosis Amt Large (67-100%) Small (1-33%) -Necrotic Tissue Type Adherent Slough -Structure Exposed N/A N/A -Texture (Ashlyn-wound Skin Appearance) Assessed, No Abnormality, Scarring Scarring Assessed -Moisture (Ashlyn-wound Skin Appearance) Assessed No Abnormality, No Abnormality Assessed -Color (Ashlyn-wound Skin Appearance) Assessed No Abnormality, No Abnormality Assessed -Temperature (Ashlyn-wound Skin No Abnormality No Abnormality No Abnormality Appearance) (Pt Warm) (Pt Warm) (Pt Warm) -Tenderness on Palpation (Ashlyn-wound No No No Skin Appearance) -Ulcer Cleansing Wound Cleanser Rinsed/ Soap and Water Irrigated with Saline -Foul Odor after Cleansing No No No -Anesthetic Used 5% Lidocaine 4% Lidocaine Gel Solution 04/24/22 14:07 Nursing Note by Addie Cannon sutures intact Initialized on 04/24/22 14:07 - END OF NOTE WC - Nurse 2 - General Ulcer CM Notes Start: 04/17/22 09:16 Freq: Status: Active Protocol: Activity Type Activity Date Activity User E-sign Co-sign Detail Recorded Client Recorded Date Recorded By Document 04/17/22 09:22 [id number] 04/17/22 09:29 Document 04/24/22 14:20 [id number] 04/24/22 14:21 Document 05/01/22 09:26 [id number] 05/01/22 09:27 04/17/22 04/24/22 05/01/22 09:22 14:20 09:26 Wound Center Nurse 2 #4- R FOOT HALLUX AMP SITE post -op -Time 09:28 -Correct Patient Yes No No -Correct Side, Site, Position Yes No No -Correct Procedure Yes No No -Procedure Performed Yes No No -Type of Procedure Debridement -Clinical Debridement Subcutaneous -Tissue Removed Subcutaneous -Post Debridement (cm) - Length 0.6 -Post Debridement (cm) - Width 0.1 -Post Debridement (cm) - Depth 0.3 -Total Square (Post) (cm) 0.06 -Area of Debridement (cm) - Length 0.6 -Area of Debridement (cm) - Width 0.1 -Total Square (Area) (cm) 0.06 -Tunneling No -Undermining/Tunneling No -Circular Undermining No -Wound/Ulcer Outcome Not Healed Not Healed Not Healed -Ulcer Cleansing Rinsed/ Irrigated with Saline -Foul Odor after Cleansing No -Bioengineered Tissue No -Injectable Lidocaine (%) 1 -Lidocaine (ml) 4 -Bleeding Controlled with Pressure -Treatment Response Procedure Tolerated Well -Offloading Yes -Type of Offloading Surgical Shoe -Debridement - Subq, 1st 20sq cm Yes Pain Scale: 0-10 Numeric Is Patient Pain Free? Yes Yes Yes WC - Nurse 3 - General Ulcer D/C NN Start: 04/17/22 09:16 Freq: Status: Active Protocol: Activity Type Activity Date Activity User E-sign Co-sign Detail Recorded Client Recorded Date Recorded By Document 04/17/22 09:52 DL [id number] 04/17/22 09:53 DL Document 04/24/22 14:27 [facility] [id number] 04/24/22 14:28 BMF Document 05/01/22 09:43 RB [id number] 05/01/22 09:43 RB 04/17/22 04/24/22 05/01/22 09:52 14:27 09:43 Wound Care Nurse 3 #4- R FOOT HALLUX AMP SITE post -op -Foul Odor after Cleansing No -Primary Dressing Covered/Secured with Dry Gauze & Dry Gauze & Dry Gauze,Dry Roll Gauze, Roll Gauze, Gauze & Roll Secured with Secured with Gauze,Secured Tape Tape with Tape -Other Covering DRSG PER KR [employer] Right -Tubular Bandage Single Layer Single Layer -Size of Tubigrip Used Size D Size D -Size D ($) 1 1 Treatment Response Procedure Procedure Procedure Tolerated Well Tolerated Well Tolerated Well Pain Scale: 0-10 Numeric Is Patient Pain Free? Yes Yes Yes WC - Visit Discharge Discharge Condition Stable Stable Stable Ambulatory Status Ambulatory Ambulatory Ambulatory Transportation Private Auto Private Auto Private Auto Medication Reconcilliation completed & No provided to patient/care provider Clinical Summary of Care Provided Yes Facility Type Home Health Orders Sent Yes Assessment/Plan Assessment/Plan (1) Ulcer of right foot with necrosis of bone: CODE(S): L97.514 - Non-pressure chronic ulcer of other part of right foot with necrosis of bone (2) Type 2 diabetes mellitus with diabetic polyneuropathy: CODE(S): E11.42 - Type 2 diabetes mellitus with diabetic polyneuropathy (3) Hallux limitus of right foot: CODE(S): M20.5X1 - Other deformities of toe(s) (acquired), right foot (4) Osteomyelitis: CODE(S): M86.9 - Osteomyelitis, unspecified QUALIFIERS: Osteomyelitis type: other acute Osteomyelitis location: foot Laterality: right Qualified Code(s): M86.171 - Other acute osteomyelitis, right ankle and foot (5) Other specified peripheral vascular diseases: CODE(S): I73.89 - Other specified peripheral vascular diseases (6) Delayed wound healing: CODE(S): T14.8XXD - Other injury of unspecified body region, subsequent encounter (7) 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 No debridement was performed. His delayed primary closure sutures which were placed 2 weeks ago and are dry and intact and healing well. No drainage, no sign of infection. Keep covered with dry gauze. Tubigrip for compression. Advance wound healing options: He completed a course of epi fix and responded well. Offload: Heel weightbearing with surgical shoe. To use assistive device. I recommend fully offloading the entire foot transitioning to nonweightbearing status with a walker or knee roller. This is imperative for healing. It is noted he is unable to proceed forward with the recommended total contact cast. Vascular: He had prior vascular surgery intervention at [facility] in [place] and also locally with Dr. Wells. On 11-27-2021 he had additional vascular surgery procedure performed; angioplasty of anterior tibial and peroneal arteries with improved foot flow. Host factors: He has uncontrolled diabetes with a self-reported A1c of over 9%. He understands this in combination with his known vascular disease make healing difficult. He is at risk for amputation and he is made this previously clear that he will not proceed forward with this. I recommend nutritional education to optimize healing. I advised him to avoid skipping meals. Advised him to eat a whole food balanced diet that not only focuses on adequate (not excessive) protein but also nutrient dense food intake. He defers creative art therapist referral. Infection: Prior h/o cipro for PsA R foot osteo. recently worsened and updated cx now resistance to cipro. PICC placed, 6 weeks iv zosyn, stop date 12/13/21. Surgical clearance fragment from pathology was negative. Surgical clearance fragment from micro had pseudomonas growth. Additional oral cipro was recommended by ID specialist; to follow instructions as advised. Follow up one week. Call or come in sooner if develop any concerns.
[2022-05-08 08:47] VITALS: BP 135/63; PULSE 80; RESP 16; TEMP 35.8; BMI 28.8
--- NOTE | 2022-05-08 12:40 | PN.PCM_ITS ---
History of Present Illness Date of Service: 05/08/22 Chief Complaint: right foot ulcer / prior first ray resection surgery History of Wound: This 62-year-old diabetic male was seen in clinic today. He is now status post first ray resection/amputation that was performed on 12-11-2021 at [facility]. He was also seen for continuation of antibiotics under infectious disease management. He denies any nausea, vomiting, fever, chills, or other constitutional symptoms. Patient has a history of anxiety and depression secondary to dealing with his chronic hallux ulceration for the last year. He has completed a procedure with Dr. Wells for vascular surgery intervention on 11-27-2021; angioplasty of anterior tibial and peroneal arteries with improved foot flow. He has tried to keep pressure off this site. He completed a course of advanced wound healing product with improvement (epi fix). He takes nutritional supplements occasionally. Progress of Wound: Right foot sutures are dry and intact. No drainage, no redness. Healing well. Sutures removed today. Objective Data Objective Data Vital Signs: Vital Signs Temp Pulse Resp BP O2 Del Method 96.4 F L 80 16 135/63 H Room Air 05/08/22 08:47 05/08/22 08:47 05/08/22 08:47 05/08/22 08:47 05/08/22 08:47 Oxygen Delivery Method Room Air Weight: 190 lb Body Mass Index (BMI) 28.8 Charges/Coding Visit Charges Office Visits / Consults: 03082 OV L3 Est Physical Exam Const alert, oriented x3 and no apparent distress HEENT normocephalic Lymph Lymphatic: no lymphedema noted Resp normal respiratory effort Effort and Inspection: able to speak in complete sentences Cardio regular rate Extremity normal capillary refill Extremity Narrative: Right pedal pulse palpabale. Skin Wound Narrative: Right foot sutures dry and intact. No sign of infection, no drainage. Sutures easily removed. Incision healing well. Neuro oriented x3 Sensorium / Orientation: awake and alert Psych Appearance: grossly normal Debridement Note Debridement Note No debridement was completed: No debridement was completed today Post-Debridement Measurements and Additional Note: Post-Debridement Measurements/Treatment JAE - Nurse 1 - General Ulcer Assessment Start: 04/17/22 09:16 Freq: Status: Active Protocol: REHAN Activity Type Activity Date Activity User E-sign Co-sign Detail Recorded Client Recorded Date Recorded By Document 04/17/22 09:16 RB Desktop 04/17/22 09:17 RB Document 04/24/22 14:04 KR [id number] 04/24/22 14:08 KR Document 05/01/22 09:08 DL [id number] 05/01/22 09:12 DL Document 05/08/22 08:47 BMF [id number] 05/08/22 08:53 BMF 04/17/22 04/24/22 05/01/22 09:16 14:04 09:08 WC - Today's Visit Information Type of service Follow-up Visit Follow-up Visit Follow-up Visit (Physician/FIRESTOP/CONTAINMENT WORKER (Physician/FIRESTOP/CONTAINMENT WORKER (Physician/FIRESTOP/CONTAINMENT WORKER ) ) ) Arrival Mode Ambulatory Ambulatory Ambulatory Transfer Assistance None None Patient Identification Verified (Name & Yes Yes Yes ) Patient Requires Transmission-Based No No Precautions Height and Weight Body Mass Index (BMI) 28.8 28.8 28.8 BMI Classification Overweight Overweight Overweight Vital Signs Temperature (97.8 F-99.1 F) 97.0 F L 97.1 F L Temperature Source Temporal Temporal Pulse Rate (60-100) 97 83 75 Pulse Location Monitor Monitor Monitor Respiratory Rate (12-18) 18 18 Respiratory rate source Observation Observation Oxygen Delivery Method Blood Pressure (90/60-120/80) 132/64 H 155/84 H 136/72 H Blood Pressure Mean (mm Hg) 86 107 93 Source Monitor Monitor Monitor Position Semi-Fowlers Semi-Fowlers Blood Pressure Location Left Arm Right Arm Comment sutures intact History Since Last Visit- (Skip if this is Patient's initial visit) Have you changed medications since your No No No last visit? Any new allergies or adverse reactions No No No Had a fall/change in ADL's that may No No No increase risk of falls Signs or symptoms of abuse and/or No No No neglect since last visit Have you been in the hospital since your No No No last visit? Has dressing in place as prescribed Yes Yes Yes Has compression in place as prescribed No Yes Yes Has offloadiing in place as prescribed No N/A Yes Experienced any changes in pain level or Yes No No management Left Footwear Regular Shoe Right Footwear Surgical Shoe Regular Shoe Surgical Shoe with pressure with pressure relief insole relief insole Pain Scale: 0-10 Numeric Is Patient Pain Free? Yes Yes Yes 05/08/22 08:47 WC - Today's Visit Information Type of service Follow-up Visit (Physician/FIRESTOP/CONTAINMENT WORKER ) Arrival Mode Ambulatory Transfer Assistance None Patient Identification Verified (Name & Yes ) Patient Requires Transmission-Based No Precautions Height and Weight Body Mass Index (BMI) 28.8 BMI Classification Overweight Vital Signs Temperature (97.8 F-99.1 F) 96.4 F L Temperature Source Temporal Pulse Rate (60-100) 80 Pulse Location Monitor Respiratory Rate (12-18) 16 Respiratory rate source Observation Oxygen Delivery Method Room Air Blood Pressure (90/60-120/80) 135/63 H Blood Pressure Mean (mm Hg) 87 Source Monitor Position Sitting Blood Pressure Location Left Arm Comment History Since Last Visit- (Skip if this is Patient's initial visit) Have you changed medications since your No last visit? Any new allergies or adverse reactions No Had a fall/change in ADL's that may No increase risk of falls Signs or symptoms of abuse and/or No neglect since last visit Have you been in the hospital since your No last visit? Has dressing in place as prescribed Yes Has compression in place as prescribed N/A Has offloadiing in place as prescribed Yes Experienced any changes in pain level or No management Left Footwear Regular Shoe Right Footwear Surgical Shoe with pressure relief insole Pain Scale: 0-10 Numeric Is Patient Pain Free? Yes - Nurse 1 - General Ulcer Measurement Start: 04/17/22 09:16 Freq: Status: Active Protocol: Activity Type Activity Date Activity User E-sign Co-sign Detail Recorded Client Recorded Date Recorded By Document 04/17/22 09:16 RB Desktop 04/17/22 09:17 RB Document 04/24/22 14:04 KR [id number] 04/24/22 14:08 KR Document 05/01/22 09:08 DL [id number] 05/01/22 09:12 DL Document 05/08/22 08:47 BMF [id number] 05/08/22 08:53 BMF 04/17/22 04/24/22 05/01/22 09:16 14:04 09:08 Wound Center Nurse 1 #4- R FOOT HALLUX AMP SITE post -op -Combined with other wound No -Current Size (cm) - Length 0.1 0.1 0.1 -Current Size (cm) - Width 0.1 0.1 0.1 -Current Size (cm) - Depth 0.1 0.1 0.1 -Total Square Cm 0.01 0.01 0.01 -Date of Last Picture (Recall this field) -Photo Taken Yes -Epithelialization -Tunneling No -Undermining/Tunneling No -Circular Undermining No -Exudate Amt None Present -Wound Margin Indistinct, Non -Visible -Granulation Amt Small (1-33%) Large (67-100%) -Granulation Quality [place] -Slough/Fibrin Yes -Necrosis Amt Large (67-100%) Small (1-33%) -Necrotic Tissue Type Adherent Slough -Structure Exposed N/A N/A -Texture (Ashlyn-wound Skin Appearance) Assessed, No Abnormality, Scarring Scarring Assessed -Moisture (Ashlyn-wound Skin Appearance) Assessed No Abnormality, No Abnormality Assessed -Color (Ashlyn-wound Skin Appearance) Assessed No Abnormality, No Abnormality Assessed -Temperature (Ashlyn-wound Skin No Abnormality No Abnormality No Abnormality Appearance) (Pt Warm) (Pt Warm) (Pt Warm) -Tenderness on Palpation (Ashlyn-wound No No No Skin Appearance) -Ulcer Cleansing Wound Cleanser Rinsed/ Soap and Water Irrigated with Saline -Foul Odor after Cleansing No No No -Anesthetic Used 5% Lidocaine 4% Lidocaine Gel Solution 05/08/22 08:47 Wound Center Nurse 1 #4- R FOOT HALLUX AMP SITE post -op -Combined with other wound No -Current Size (cm) - Length 0.1 -Current Size (cm) - Width 0.1 -Current Size (cm) - Depth 0.1 -Total Square Cm 0.01 -Date of Last Picture (Recall this 05/08/22 field) -Photo Taken Yes -Epithelialization None Present -Tunneling No -Undermining/Tunneling No -Circular Undermining No -Exudate Amt None Present -Wound Margin Distinct, Outline Attached -Granulation Amt -Granulation Quality -Slough/Fibrin -Necrosis Amt -Necrotic Tissue Type -Structure Exposed -Texture (Ashlyn-wound Skin Appearance) Assessed, Scarring -Moisture (Ashlyn-wound Skin Appearance) Assessed,Dry/ Scaly -Color (Ashlyn-wound Skin Appearance) Assessed -Temperature (Ashlyn-wound Skin No Abnormality Appearance) (Pt Warm) -Tenderness on Palpation (Ashlyn-wound No Skin Appearance) -Ulcer Cleansing Rinsed/ Irrigated with Saline -Foul Odor after Cleansing No -Anesthetic Used 04/24/22 14:07 Nursing Note by Addie Cannon sutures intact Initialized on 04/24/22 14:07 - END OF NOTE WC - Nurse 2 - General Ulcer CM Notes Start: 04/17/22 09:16 Freq: Status: Active Protocol: Activity Type Activity Date Activity User E-sign Co-sign Detail Recorded Client Recorded Date Recorded By Document 04/17/22 09:22 [id number] 04/17/22 09:29 Document 04/24/22 14:20 [id number] 04/24/22 14:21 Document 05/01/22 09:26 [id number] 05/01/22 09:27 Document 05/08/22 09:03 Desktop 05/08/22 09:12 04/17/22 04/24/22 05/01/22 09:22 14:20 09:26 Wound Center Nurse 2 #4- R FOOT HALLUX AMP SITE post -op -Time 09:28 -Correct Patient Yes No No -Correct Side, Site, Position Yes No No -Correct Procedure Yes No No -Procedure Performed Yes No No -Type of Procedure Debridement -Clinical Debridement Subcutaneous -Tissue Removed Subcutaneous -Post Debridement (cm) - Length 0.6 -Post Debridement (cm) - Width 0.1 -Post Debridement (cm) - Depth 0.3 -Total Square (Post) (cm) 0.06 -Area of Debridement (cm) - Length 0.6 -Area of Debridement (cm) - Width 0.1 -Total Square (Area) (cm) 0.06 -Tunneling No -Undermining/Tunneling No -Circular Undermining No -Wound/Ulcer Outcome Not Healed Not Healed Not Healed -Ulcer Cleansing Rinsed/ Irrigated with Saline -Foul Odor after Cleansing No -Bioengineered Tissue No -Injectable Lidocaine (%) 1 -Lidocaine (ml) 4 -Bleeding Controlled with Pressure -Treatment Response Procedure Tolerated Well -Offloading Yes -Type of Offloading Surgical Shoe -Debridement - Subq, 1st 20sq cm Yes Pain Scale: 0-10 Numeric Is Patient Pain Free? Yes Yes Yes 05/08/22 09:03 Wound Center Nurse 2 #4- R FOOT HALLUX AMP SITE post -op -Time -Correct Patient No -Correct Side, Site, Position No -Correct Procedure No -Procedure Performed No -Type of Procedure -Clinical Debridement -Tissue Removed -Post Debridement (cm) - Length 0 -Post Debridement (cm) - Width 0 -Post Debridement (cm) - Depth 0 -Total Square (Post) (cm) 0 -Area of Debridement (cm) - Length 0 -Area of Debridement (cm) - Width 0 -Total Square (Area) (cm) 0 -Tunneling -Undermining/Tunneling -Circular Undermining -Wound/Ulcer Outcome Healed- Epithelialized -Ulcer Cleansing -Foul Odor after Cleansing -Bioengineered Tissue -Injectable Lidocaine (%) -Lidocaine (ml) -Bleeding Controlled with -Treatment Response -Offloading -Type of Offloading -Debridement - Subq, 1st 20sq cm Pain Scale: 0-10 Numeric Is Patient Pain Free? Yes - Nurse 3 - General Ulcer D/C NN Start: 04/17/22 09:16 Freq: Status: Active Protocol: Activity Type Activity Date Activity User E-sign Co-sign Detail Recorded Client Recorded Date Recorded By Document 04/17/22 09:52 DL [id number] 04/17/22 09:53 DL Document 04/24/22 14:27 [facility] [id number] 04/24/22 14:28 [facility] Document 05/01/22 09:43 RB [id number] 05/01/22 09:43 RB Document 05/08/22 09:12 JF Desktop 05/08/22 09:12 JF Document 05/08/22 09:15 [facility] [id number] 05/08/22 09:15 [facility] 04/17/22 04/24/22 05/01/22 09:52 14:27 09:43 Wound Care Nurse 3 #4- R FOOT HALLUX AMP SITE post -op -Foul Odor after Cleansing No -Primary Dressing Covered/Secured with Dry Gauze & Dry Gauze & Dry Gauze,Dry Roll Gauze, Roll Gauze, Gauze & Roll Secured with Secured with Gauze,Secured Tape Tape with Tape -Other Covering DRSG PER KR HYPERION DEVELOPER Right -Tubular Bandage Single Layer Single Layer -Size of Tubigrip Used Size D Size D -Size D ($) 1 1 -Other Treatment Response Procedure Procedure Procedure Tolerated Well Tolerated Well Tolerated Well Pain Scale: 0-10 Numeric Is Patient Pain Free? Yes Yes Yes WC - Visit Discharge Discharge Condition Stable Stable Stable Ambulatory Status Ambulatory Ambulatory Ambulatory Transportation Private Auto Private Auto Private Auto Medication Reconcilliation completed & No provided to patient/care provider Clinical Summary of Care Provided Yes Facility Type Home Health Orders Sent Yes 05/08/22 05/08/22 09:12 09:15 Wound Care Nurse 3 #4- R FOOT HALLUX AMP SITE post -op -Foul Odor after Cleansing -Primary Dressing Covered/Secured with -Other Covering Right -Tubular Bandage -Size of Tubigrip Used -Size D ($) -Other pt own single layer tubi applied per rb rn Treatment Response Procedure Tolerated Well Pain Scale: 0-10 Numeric Is Patient Pain Free? Yes Yes WC - Visit Discharge Discharge Condition Stable Stable Ambulatory Status Ambulatory Ambulatory Transportation Private Auto Medication Reconcilliation completed & Yes provided to patient/care provider Clinical Summary of Care Provided Yes Facility Type Orders Sent Assessment/Plan Assessment/Plan (1) Ulcer of right foot with necrosis of bone: CODE(S): L97.514 - Non-pressure chronic ulcer of other part of right foot with necrosis of bone (2) Type 2 diabetes mellitus with diabetic polyneuropathy: CODE(S): E11.42 - Type 2 diabetes mellitus with diabetic polyneuropathy (3) Hallux limitus of right foot: CODE(S): M20.5X1 - Other deformities of toe(s) (acquired), right foot (4) Osteomyelitis: CODE(S): M86.9 - Osteomyelitis, unspecified QUALIFIERS: Osteomyelitis type: other acute Osteomyelitis location: foot Laterality: right Qualified Code(s): M86.171 - Other acute osteomyelitis, right ankle and foot (5) Other specified peripheral vascular diseases: CODE(S): I73.89 - Other specified peripheral vascular diseases (6) Delayed wound healing: CODE(S): T14.8XXD - Other injury of unspecified body region, subsequent encounter (7) 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 No debridement was performed. His delayed primary closure sutures which were placed 3 weeks ago and are dry and intact and healing well. No drainage, no sign of infection. Sutures were removed without difficulty. Incision is healing well. Keep covered with dry gauze. Tubigrip for compression. Advance wound healing options: He completed a course of epi fix and responded well. Is currently wearing tennis shoes. Discussed following up with the foot and ankle clinic for further evaluation for diabetic shoes. Vascular: He had prior vascular surgery intervention at [facility] in [place] and also locally with Dr. Wells. On 11-27-2021 he had additional vascular surgery procedure performed; angioplasty of anterior tibial and peroneal arteries with improved foot flow. Follow up as needed at the wound healing center. Follow-up in 3 weeks at the foot and ankle Center for further evaluation for diabetic shoes and for toenail management. He states his insurance (total be too expensive for him to follow- up here.
== END 2022-05-09 14:39 | disposition home or self-care (01) ==
LOC: WC 08:45
PROVIDERS: PCP Family Medicine; Visit Provider Nurse Practitioner Family
DX: E11.621 Type 2 diabetes mellitus with foot ulcer (principal); E11.51 Type 2 diabetes mellitus with diabetic peripheral angiopathy without gangrene; Z89.431 Acquired absence of right foot; T87.89 Other complications of amputation stump; L97.512 Non-pressure chronic ulcer of other part of right foot with fat layer exposed; M86.171 Other acute osteomyelitis, right ankle and foot; E11.42 Type 2 diabetes mellitus with diabetic polyneuropathy; M20.5X1 Other deformities of toe(s) (acquired), right foot; Y83.5 Amputation of limb(s) as the cause of abnormal reaction of the patient, or of later complication, without mention of misadventure at the time of the procedure
CPT/HCPCS: 11042; 99213; G0463

== ENCOUNTER 2022-08-13 19:30 | Inpatient (IN) | payer OTHER, SELFPAY ==
[2022-08-13 19:32] VITALS: BP 194/89; PULSE 84; RESP 18; TEMP 37.1; O2SAT 98; BMI 31.3
[2022-08-13 20:41] LABS: Absolute Lymphocyte Count 1.87 X10^3/uL (0.83-4.51); Absolute Neutrophil Count 4.3 X10^3/uL (2.0-7.7); Basophil# 0.02 X10^3/uL; Basophil% 0.3 % (0-1); Eosinophil# 0.27 X10^3/uL; Eosinophils% 3.9 % (0-5); Hematocrit 37.9 % (40-54); Hemoglobin 12.6 g/dL (13.0-16.5); Lymphocyte # 1.87 X10^3/ul (0.83-4.51); Lymphocyte % 27.1 % (19-41); Mean Corp Hgb Conc 33.2 g/dL (32-36); Mean Corpuscular Hgb 28.1 pg (27.0-32.0); Mean Corpuscular Volume 84.6 fL (80-94); Mean Platelet Vol. 9.8 fl (6.2-12.0); Monocyte# 0.42 X10^3/uL; Monocyte% 6.1 % (0-10); NRBC Flagged by Analyzer 0 % (0-5); Neutrophil # 4.28 X10^3/uL (2.7-7.7); Platelet Count 185 K/mm3 (150-450); RBC Distribution Width CV 12.9 % (11.6-14.6); RBC Distribution Width SD 39.2 fl (35.1-43.9); Red Blood Count 4.48 M/mm3 (4.6-6.2); White Blood Count 6.9 K/mm3 (4.4-11.0)
--- NOTE | 2022-08-13 21:00 | RAD_ITS ---
STUDY: X-RAY CHEST REASON FOR EXAM: Male, 62 years old. SOB TECHNIQUE: XR Chest 1 View COMPARISON: 2.7.21 FINDINGS: There is atherosclerotic calcification of the aortic arch with tortuosity. There are diffuse degenerative changes of the visualized thoracic spine. There is degenerative osteoarthritis of the bilateral shoulders. There is no demonstrated pleural abnormality. Normal size heart. Normal mediastinum and judy. Normal visualized pulmonary arteries. There is no demonstrated abnormality of the visualized soft tissue structures of the upper abdomen. RAD/Chest 1 View (Portable) IMPRESSION: There are no acute findings. Electronically Signed: Inderjit Knapp MD at 21:15 EST ,
[2022-08-13 21:03] LABS: BUN 16 mg/dL (7-18); BUN/Creat Ratio 11.7 RATIO (10-20); Calcium,Total 9.2 mg/dL (8.5-10.1); Chloride 104 mmol/L (98-107); Creatinine, Serum 1.37 mg/dL (0.70-1.30); EST Glomerular Filtration Rate 56 mL/min (>60); Est Glom Filt Rate - Afr Amer 67 mL/min (>60); Estimated Creatinine Clearance 53.39 ml/min; Glucose 323 mg/dL (74-106); Potassium 4.2 mmol/L (3.5-5.1); Sodium Level 137 mmol/L (136-145); Troponin-I HS 40 pg/mL (3.0-78.0)
[2022-08-13 21:04] LABS: Anion Gap 10 (5-15)
[2022-08-13 22:07] VITALS: O2SAT 98
[2022-08-13 22:08] VITALS: BP 163/73; PULSE 78; RESP 18; O2SAT 98
--- NOTE | 2022-08-13 22:21 | EDS_ITS ---
HPI History of Present Illness Chief Complaint: Shortness of Breath Informant: patient Onset/Context/Timing Onset: Today Context: gradual Timing: Continuous Quality: Positive for Dyspnea on exertion Worsened by: Exertion and - (Cold air) Relieved by: Albuterol Associated Symptoms cough and rhinorrhea; Negative for post nasal drip, ear pain, fever, sore throat, chills, sweats, clear sputum, white sputum, yellow sputum or green sputum Chest Pain: Positive for Aching Narrative Narrative: Patient presents with shortness of breath that became worse today. Patient states it began this afternoon while he was moving some mattresses. Patient sta james he lifted the box bring and the mattress the same time. Patient states his breathing is worse with any exertion and with exposure to cold air. Patient states he took an inhaler. Patient states this did help somewhat. Patient states he also took nitroglycerin at the same time and his breathing improved. Patient admits to some aching pain in his chest. Patient states it is over the substernal area. Patient states nothing makes the pain worse and nothing makes it better. Patient admits to a cough but denies any sputum production. 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 Coronary artery disease Delayed wound healing Depression Diabetes mellitus Diabetes mellitus with diabetic polyneuropathy Dietary restriction DM2 (diabetes mellitus, type 2) Hallux limitus of right foot Hallux limitus of right foot Heart disease High cholesterol History of echocardiogram HTN (hypertension) Myocardial infarct Non-smoker Open wound Osteomyelitis Other specified peripheral vascular diseases PAD (peripheral artery disease) Toe infection Type 2 diabetes mellitus with diabetic polyneuropathy Type 2 diabetes mellitus with foot ulcer Uses crutches Home Medications albuterol sulfate 90 mcg/actuation aerosol inhaler 1 - 2 puff inhalation Q4H PRN PRN Wheezing 09/17/20 [History Last Taken Unknown] carvedilol 6.25 mg tablet 6.25 mg PO BID heart 09/17/20 [History Last Taken 11/01/21] clopidogrel 75 mg tablet 75 mg PO DAILY bld thinner 09/17/20 [History Last Taken 12/10/21] fluticasone propionate 50 mcg/actuation blister powder for inhalation 2 puff IH DAILY breathing 09/17/20 [History Last Taken 11/01/21] glimepiride 4 mg tablet 8 mg PO DAILY DM 09/17/20 [History Last Taken 11/01/21] metformin 1,000 mg tablet 1,000 mg PO BID DM 09/17/20 [History Last Taken 11/01/21] amlodipine 10 mg tablet 10 mg PO DAILY heart 07/10/21 [History Last Taken 12/11/21 08:00] Allergy/AdvReac Type Severity Reaction Status Date / Time No Known Allergies Allergy Verified 08/13/22 19:35 Family History Mother Diabetes Hypertension Father Diabetes Hypertension Surgical History History of coronary artery stent placement S/P peripheral artery angioplasty with stent placement Status post right foot surgery Social History household members: none Smoking Status: Never smoker alcohol intake: never substance use type: does not use ROS ROS ED Constitutional Constitutional ED: Denies chills or fever(s) Eyes Eyes: Denies blurry vision or change in vision ENT ENT ED: Reports rhinorrhea; Denies sore throat Cardiovascular Cardiovascular: Reports chest pain; Denies palpitations Respiratory/Chest Respiratory/Chest: Reports cough and dyspnea Gastrointestinal Gastrointestinal: Denies nausea or vomiting Genitourinary Genitourinary ED: Denies dysuria or hematuria Musculoskeletal Musculoskeletal: Denies back pain or neck pain Integumentary Denies abscess or rash Neurologic Neurologic: Denies headache(s) or weakness Allergic/Immunologic Allergic/Immunologic ED: Denies mouth swelling or urticaria EXAM Physical Exam Const Vital Signs: 08/13/22 19:32 08/13/22 22:05 08/13/22 22:07 Temperature 98.7 F Temperature Source Temporal Pulse Rate 84 Respiratory Rate 18 Respiratory Effort Normal Respiratory Depth Normal Respiratory Pattern Normal Blood Pressure 194/89 H Blood Pressure Mean 124 Pulse Ox 98 98 Oxygen Delivery Method Room Air Room Air 08/13/22 22:08 08/13/22 22:08 08/14/22 00:03 Temperature Temperature Source Pulse Rate 78 75 Respiratory Rate 18 18 Respiratory Effort Respiratory Depth Respiratory Pattern Blood Pressure 163/73 H 155/79 H Blood Pressure Mean 103 104 Pulse Ox 98 94 Oxygen Delivery Method Room Air Room Air Room Air Positive well nourished, well developed and obese General Appearance ED: well developed and NAD Nutritional Appearance: obese HEENT normocephalic and atraumatic Eyes PERRL and EOMs intact bilaterally Neck supple and no JVD Chest Wall palpation of chest normal Resp normal respiratory effort and clear to auscultation bilaterally Effort and Inspection: Negative for respiratory distress Cardio regular rate, regular rhythm and no murmurs GI normal to inspection, nondistended, normoactive bowel sounds, soft to palpation, non-tender and non-distended Extremity normal to inspection General Extremety ED: Negative for edema or tenderness General Extremity: Negative for edema Neuro oriented x3, CN's II-XII intact bilaterally and no sensory deficits noted Sensorium / Orientation: awake and alert Motor Exam: strength 5/5 throughout Psych mental status grossly normal MDM MDM MDM Narrative Medical decision making narrative: EKG was obtained. On my interpretation, it showed a normal sinus rhythm with a rate of 74. [place] interval, QRS interval, and QTc intervals were all normal. [place] was normal. There are nonspecific ST-T wave changes. CBC shows a mild anemia with a hemoglobin of 12.6 and hematocrit of 37.9. Comprehensive metabolic profile shows a creatinine of 1.37 which is consistent with prior results. Glucose was 323. High-sensitivity troponin was 40. Portable 1 view chest x-ray was obtained. On my interpretation, lung edmonds are clear. There is normal cardiac silhouette. Bony thorax is normal. There is no acute process noted. Radiologist also interpreted the x-ray and agrees. 2-hour repeat high- sensitivity troponin was obtained and was 53. Because of the change in his EKG with the new nonspecific ST-T wave changes and the delta troponin of 13, I recommended admission to the hospital. Patient has a HEART score of 5. Case was discussed with the hospitalist. He will admit the patient for observation. Patient understood and was agreeable with the plan. All questions were answered. Lab Data Attestation: I reviewed the patient's lab results. Labs: Laboratory Results - last 24 hr 08/13/22 08/13/22 08/13/22 20:36 20:36 22:37 WBC 6.9 RBC 4.48 L Hgb 12.6 L Hct 37.9 L MCV 84.6 MCH 28.1 MCHC 33.2 RDW Std Deviation 39.2 RDW Coeff of Divya 12.9 Plt Count 185 MPV 9.8 Immature Gran % (Auto) 0.600 Neut % (Auto) 62.0 Lymph % (Auto) 27.1 Bond % (Auto) 6.1 Eos % (Auto) 3.9 Baso % (Auto) 0.3 Absolute Neuts (auto) 4.3 Absolute Lymphs (auto) 1.87 Nucleated RBC % 0 Sodium 137 Potassium 4.2 Chloride 104 Carbon Dioxide 23.0 Anion Gap 10 BUN 16 Creatinine 1.37 H Estim Creat Clear Calc 53.39 Est GFR (MDRD) Af Amer 67 Est GFR (MDRD) Non-Af 56 L BUN/Creatinine Ratio 11.7 Glucose 323 H Calcium 9.2 Troponin I High Sens 40 53 Radiography Chest X-Ray - ED: 1 View, Read by ED Physician, Read by Radiologist and No Acute Disease Diagnostic Testing: Clinical Impression(s) from Imaging Studies Chest X-Ray 08/13/22 21:00 IMPRESSION: There are no acute findings. Electronically Signed: Inderjit Knapp MD at 21:15 EST Reading Location ID and State: [facility] / [place] , Service support , EKG Initial EKG: Attestation: I personally reviewed and interpreted this EKG as follows: Interpretation: Sinus Rhythm (74) and Non-Specific ST Changes Prior EKG tracings: available for review Prior: Changed (Compared to previous EKG dated 09/24/2021 the T wave inversions in leads III, and aVF are new.) Discharge Plan Dx/Rx/DC Orders Clinical Impression: Chest pain, History of coronary artery disease, Hypertension Disposition Disposition: Acute Care Hospital [facility]
[2022-08-13 23:08] LABS: Troponin-I HS 53 pg/mL (3.0-78.0)
[2022-08-14] VITALS (13 sets, daily range): BP systolic 155–173; BP diastolic 77–94; PULSE 70–87; RESP 16–18; TEMP 36.6–36.9; O2SAT 94–99; BMI 32.4
[2022-08-14] MEDS: Aspirin 81 MG TAB.CHEW 324 MG PO (00:16)
--- NOTE | 2022-08-14 00:28 | HP.PCM.HOS_ITS ---
HPI - General General Date of Admission: 08/14/22 Date of Service: 08/14/22 Chief Complaint: Chest pain HPI Narrative ROSETTA STEWART, is a 62 M with a significant history of CAD status post stents; diabetes mellitus and hypertension who presented to emergency department with substernal chest pain that radiated to his back. The pain started after patient lifted some mattress with its box spring. He describes his pain as tightness. The severity of his pain was 7 on a scale of 1-10. He took some albuterol inhaler and nitroglycerin tablets and had some relief. He is unsure whether it was albuterol inhaler or nitroglycerin which give him the relief. However patient think that his symptoms may be from asthma. Reportedly cold air causes him to have chest tightness and with his presenting symptoms cold air exacerbated his symptoms. Associated with symptoms is shortness of breath. He denies any nausea or vomiting. 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 Coronary artery disease Delayed wound healing Depression Diabetes mellitus Diabetes mellitus with diabetic polyneuropathy Dietary restriction DM2 (diabetes mellitus, type 2) Hallux limitus of right foot Hallux limitus of right foot Heart disease High cholesterol History of echocardiogram HTN (hypertension) Myocardial infarct Non-smoker Open wound Osteomyelitis Other specified peripheral vascular diseases PAD (peripheral artery disease) Toe infection Type 2 diabetes mellitus with diabetic polyneuropathy Type 2 diabetes mellitus with foot ulcer Uses crutches Home Medications albuterol sulfate 90 mcg/actuation aerosol inhaler 1 - 2 puff inhalation Q4H PRN PRN Wheezing 09/17/20 [History Last Taken Unknown] carvedilol 6.25 mg tablet 6.25 mg PO BID heart 09/17/20 [History Last Taken 11/01/21] clopidogrel 75 mg tablet 75 mg PO DAILY bld thinner 09/17/20 [History Last Taken 12/10/21] fluticasone propionate 50 mcg/actuation blister powder for inhalation 2 puff IH DAILY breathing 09/17/20 [History Last Taken 11/01/21] glimepiride 4 mg tablet 8 mg PO DAILY DM 09/17/20 [History Last Taken 11/01/21] metformin 1,000 mg tablet 1,000 mg PO BID DM 09/17/20 [History Last Taken 11/01/21] amlodipine 10 mg tablet 10 mg PO DAILY heart 07/10/21 [History Last Taken 12/11/21 08:00] Allergy/AdvReac Type Severity Reaction Status Date / Time No Known Allergies Allergy Verified 08/13/22 19:35 Family History Mother Diabetes Hypertension Father Diabetes Hypertension Surgical History History of coronary artery stent placement S/P peripheral artery angioplasty with stent placement Status post right foot surgery Social History household members: none Smoking Status: Never smoker alcohol intake: never substance use type: does not use ROS ROS Narrative Pertinent positives and pertinent negatives as noted in HPI. All other systems were reviewed and are negative Vital Signs Vital Signs Vital Signs: 08/13/22 19:32 08/13/22 22:05 08/13/22 22:07 Temperature 98.7 F Temperature Source Temporal Pulse Rate 84 Respiratory Rate 18 Respiratory Effort Normal Respiratory Depth Normal Respiratory Pattern Normal Blood Pressure 194/89 H Blood Pressure Mean 124 Pulse Ox 98 98 Oxygen Delivery Method Room Air Room Air 08/13/22 22:08 08/13/22 22:08 08/14/22 00:03 Temperature Temperature Source Pulse Rate 78 75 Respiratory Rate 18 18 Respiratory Effort Respiratory Depth Respiratory Pattern Blood Pressure 163/73 H 155/79 H Blood Pressure Mean 103 104 Pulse Ox 98 94 Oxygen Delivery Method Room Air Room Air Room Air Weight Weight: 93.44 kg Body Mass Index (BMI) 31.3 Physical Exam Narrative Physical exam: General: Well-nourished, well-developed. Head: Normocephalic, atraumatic, no tenderness Eyes: Vision is grossly intact. EOMI ENT, no trauma, moist mucous membranes, no rhinorrhea Neck: Nontender, No thyromegaly. CVS: Regular rate and rhythm. S1-S2 present. No murmur, gallop or rub. Respiratory : clear to auscultation bilaterally, chest wall nontender, no wheezing Abdomen: Soft, nontender, nondistended, normal bowel sounds, no masses : Deferred Back: Nontender, no CVA tenderness, no midline spinal tenderness, deformities, step-offs Extremities: Amputation of right great toe with hyperemia around first and second metatarsal. Bilateral feet edema. Skin: Normal color, no trauma, abrasions Neuro: Alert, oriented, cranial nerves II through XII grossly intact. Psychiatry: Normal mood. Normal affect. Not depressed. Not anxious. Results Lab / Micro Data Result Diagrams: 08/13/22 20:36 08/13/22 20:36 Labs: Laboratory Results - last 24 hr 08/13/22 20:36: WBC 6.9, RBC 4.48 L, Hgb 12.6 L, Hct 37.9 L, MCV 84.6, MCH 28.1, MCHC 33.2, RDW Std Deviation 39.2, RDW Coeff of Divya 12.9, Plt Count 185, MPV 9.8, Immature Gran % (Auto) 0.600, Neut % (Auto) 62.0, Lymph % (Auto) 27.1, [place] % (Auto) 6.1, Eos % (Auto) 3.9, Baso % (Auto) 0.3, Absolute Neuts (auto) 4.3, Absolute Lymphs (auto) 1.87, Nucleated RBC % 0 08/13/22 20:36: Sodium 137, Potassium 4.2, Chloride 104, Carbon Dioxide 23.0, Anion Gap 10, BUN 16, Creatinine 1.37 H, Estim Creat Clear Calc 53.39, Est GFR (MDRD) Af Amer 67, Est GFR (MDRD) Non-Af 56 L, BUN/Creatinine Ratio 11.7, Glucose 323 H, Calcium 9.2, Troponin I High Sens 40 08/13/22 22:37: Troponin I High Sens 53 Micro: Microbiology 08/13/22 20:27 Nasal Secretion SARS-CoV-2 & FLU Antigen (Rapid) - Final Radiology Impression Chest X-Ray 08/13/22 21:00 IMPRESSION: There are no acute findings. Electronically Signed: Inderjit Knapp MD at 21:15 EST , Assessment & Plan Assessment/Plan (1) Chest pain: (2) Dyspnea: (3) Diabetes mellitus: PLAN: Plan Chest pain, dyspnea Place on a monitored bed at progressive care unit Impression of chest x-ray by radiologist: There are no acute findings. Actual CXR image was independently visualized. No acute cardiopulmonary process was noted. Actual EKG tracing was independently visualized. EKG tracing showed T wave in version in inferior leads that is new compared to previous. Received full dose aspirin in the emergency department. We will check lipid panel. Statin: Of note patient was not on home statin. Reportedly he stopped taking his statin secondary to constipation. Discussed with patient that statin will be started and he can have as needed stool softeners. Atorvastatin 80 mg ordered. As needed Senokot as ordered. Check lipid panel. Initial high sensitive troponin was 40. Repeat is 53. Trend Stat EKG as needed for chest pain Chemical Stress test in the AM if the cardiac enzymes are negative . Of note the patient reports inability to walk/run on treadmill. Echocardiogram ordered Trend CBC Diabetes mellitus Patient with hyperglycemia on presentation Monitor Accu-Cheks Correction scale insulin ordered. Hypertension Blood pressure is not within goal Home blood pressure medication continued. Trend blood pressure and adjust blood pressure medications. DVT prophylaxis SCDs ordered. Charges/Coding Visit Charges Inpatient E&M: 73056 Init Hosp L3
--- NOTE | 2022-08-14 01:35 | EKG12_ITS ---
Test Reason : CP Blood Pressure : / mmHG Vent. Rate : 074 BPM Atrial Rate : 074 BPM P-R Int : 140 ms QRS Dur : 076 ms QT Int : 378 ms P-R-T Axes : 003 017 -38 degrees QTc Int : 419 ms Normal sinus rhythm Nonspecific ST and T wave abnormality Abnormal ECG Confirmed by NAT MARCUS, MANDY ([id number]), online editor HERNAN JACINTO ([id number]) on 08/15/2022 9:43:58 AM Referred By: Confirmed By:MANDY JOHNS MD
[2022-08-14 02:54] LABS: Absolute Lymphocyte Count 1.98 X10^3/uL (0.83-4.51); Absolute Neutrophil Count 3.5 X10^3/uL (2.0-7.7); Basophil# 0.03 X10^3/uL; Basophil% 0.5 % (0-1); Eosinophil# 0.25 X10^3/uL; Eosinophils% 4.1 % (0-5); Hematocrit 35.5 % (40-54); Hemoglobin 11.7 g/dL (13.0-16.5); Lymphocyte # 1.98 X10^3/ul (0.83-4.51); Lymphocyte % 32.2 % (19-41); Mean Corpuscular Hgb 27.8 pg (27.0-32.0); Mean Corpuscular Volume 84.3 fL (80-94); Mean Platelet Vol. 9.9 fl (6.2-12.0); Monocyte# 0.31 X10^3/uL; NRBC Flagged by Analyzer 0 % (0-5); Neutrophil # 3.54 X10^3/uL (2.7-7.7); Neutrophil % 57.5 % (47-70); Platelet Count 176 K/mm3 (150-450); RBC Distribution Width SD 39.6 fl (35.1-43.9); Red Blood Count 4.21 M/mm3 (4.6-6.2); White Blood Count 6.2 K/mm3 (4.4-11.0)
[2022-08-14 03:11] LABS: Troponin-I HS 70 pg/mL (3.0-78.0)
[2022-08-14 03:16] LABS: Anion Gap 9 (5-15); BUN 13 mg/dL (7-18); BUN/Creat Ratio 10.8 RATIO (10-20); Calcium,Total 8.8 mg/dL (8.5-10.1); Chloride 105 mmol/L (98-107); Cholesterol 235 mg/dL (200); EST Glomerular Filtration Rate 65 mL/min (>60); Est Glom Filt Rate - Afr Amer 79 mL/min (>60); Estimated Creatinine Clearance 60.96 ml/min; Glucose 209 mg/dL (74-106); High Density Lipoprotein 31 mg/dL; Potassium 3.6 mmol/L (3.5-5.1); Sodium Level 138 mmol/L (136-145); Triglycerides 746 mg/dL
--- NOTE | 2022-08-14 05:55 | ECHOD_ITS ---
Reason For Study: Dyspnea/SOB Procedure This was a 2D Doppler, Color Flow transthoracic echocardiogram. The study was technically difficult. Exam performed in department. Left Ventricle Normal LV size. Segmental dysfunction with preserved ejection fraction (see wall motion). The estimated ejection fraction is 55 %. Stage 2 diastolic dysfunction. Infero-Basal: Akinetic. Mid- Inferior: Hypokinetic. Right Ventricle Normal RV size. Normal systolic function. Atria Normal left atrium. Normal right atrium. No doppler evidence for ASD. Mitral Valve There is mild to moderate mitral annular calcification. Extension of the mitral annular calcification onto the base of the posterior mitral valve leaflet. Mild-Moderate (1-2+) eccentric mitral valve insufficiency. Tricuspid Valve Normal tricuspid valve. Trivial tricuspid valve insufficiency. Right ventricular systolic pressure estimated to be 37 mmHg. Aortic Valve Trisinus/trileaflet aortic valve. Mild diffuse aortic valve calcification. Mild aortic stenosis. Pulmonic Valve The pulmonic valve is not well visualized. Trivial pulmonic valve insufficiency. Great Vessels Normal sized aortic root. Pericardium/Pleural No pericardial effusion. MMode/2D Measurements & Calculations LVIDd: 5.3 cm IVSd: 1.2 cm LVOT diam: 2.0 cm LVIDs: 3.8 cm LVPWd: 1.2 cm LVOT area: 3.1 cm2 RVDd: 3.5 cm FS: 28.1 % Ao root diam: 2.9 cm LAV(MOD-bp): 41.8 ml LVAd ap4: 26.7 cm2 LAV(MOD-bp) Indexed: 20.2 ml/m2 LVLd ap4: 7.9 cm LAV(MOD-sp2): 35.7 ml EDV(MOD-sp4): 76.4 ml LAV(MOD-sp4): 40.1 ml EDV(sp4-el): 76.3 ml LVAs ap4: 15.9 cm2 LVLs ap4: 7.1 cm ESV(MOD-sp4): 31.1 ml ESV(sp4-el): 30.2 ml EF(MOD-sp4): 59.3 % EF(sp4-el): 60.5 % SV(MOD-sp4): 45.4 ml SV(sp4-el): 46.1 ml LA A4 area: 16.1 cm2 LA dimension(2D): 3.9 cm RA A4 area: 12.7 cm2 Doppler Measurements & Calculations MV E max roc: 83.4 cm/sec Lat Peak E' Roc: 7.3 cm/sec Med Peak E' Roc: 5.4 cm/sec MV A max roc: 91.9 cm/sec E/E' lat: 11.4 E/E' med: 15.4 MV E/A: 0.91 Ao V2 max: 235.2 cm/sec LV V1 max: 107.8 cm/sec SV(LVOT): 78.0 ml Ao max P.1 mmHg LV V1 max P.7 mmHg Ao V2 mean: 174.6 cm/sec LV V1 mean P.7 mmHg Ao mean P.1 mmHg LV V1 mean: 78.8 cm/sec Ao V2 VTI: 51.9 cm LV V1 VTI: 25.1 cm AV (velocity ratio): 0.48 ESTHER(I,D): 1.5 cm2 ESTHER(V,D): 1.4 cm2 PA V2 max: 139.8 cm/sec PI end-d roc: 101.0 cm/sec TR max roc: 292.4 cm/sec TR max P.2 mmHg ECHO/Echo Complete Interpretation Summary The study was technically difficult. Segmental dysfunction with preserved ejection fraction (see wall motion). The estimated ejection fraction is 55 %. There is mild to moderate mitral annular calcification. Extension of the mitral annular calcification onto the base of the posterior mi tral valve leaflet. Mild-Moderate (1-2+) eccentric mitral valve insufficiency. Trivial tricuspid valve insufficiency. Mild diffuse aortic valve calcification. Mild aortic stenosis. Trivial pulmonic valve insufficiency. Right ventricular systolic pressure estimated to be 37 mmHg. Stage 2 diastolic dysfunction. Ordering Physician: Raymond Erazo Referring Physician: Earle Malagon Performed By: Suzi Fonseca, ALIDACS, RVT
[2022-08-14 06:51] LABS: Bedside Glucose 197 mg/dL (74-106)
[2022-08-14] MEDS: Acetaminophen 325 MG Tablet 650 MG PO ×2 (10:12→17:20)
--- NOTE | 2022-08-14 12:02 | STRESSREP_ITS ---
Stress Test Report Date: 08-14-2022 Procedure: Pharmacologic stress nuclear imaging study Indications: Chest pain; CAD; PCI Consent: Per the patient Procedure: The patient underwent pharmacologic (Regadenoson 0.4mg ) evaluation with a peak heart rate of 93 beats per minute (59%predicted maximal heart rate) and a resting blood pressure of 150/80 mmHg and a peak blood pressure of 152/80 mmHg. The baseline ECG demonstrated normal sinus rhythm; T wave abnormality: Consider myocardial ischemia: Inferior-lateral. The peak pharmacologic ECG demonstrated continued T wave abnormality with no obvious additional ECG changes. There were no cardiac dysrhythmias pretest, during pharmacologic infusion, or recovery. There was no complaint of chest discomfort during pharmacologic infusion or recovery. The examination was discontinued secondary to completion of protocol. Impression: 1. Pharmacologic (Regadenoson) evaluation 2. Peak pharmacologic ECG with continued T wave abnormality with no obvious additional ECG changes. 3. There were no cardiac dysrhythmias pretest, during pharmacologic infusion, or recovery. 4. Nuclear images pending Myocardial perfusion imaging study: Technique: The patient was injected with 14.0 millicuries of technetium 99m Cardiolite and subsequently rest SPECT Cardiolite nuclear imaging was obtained in the horizonta l long, vertical long, and short axis views. The patient underwent pharmacologic (Regadenoson) evaluation with a peak heart rate of 93 beats per minute (59% percent predicted maximal heart rate) and a resting blood pressure of 150/80 mmHg and a peak blood pressure of 152/80 mmHg. The patient was injected with 43.8 millicuries of technetium 99m Cardiolite and subsequently stress SPECT Cardiolite nuclear imaging was obtained in the horizontal long, vertical long, and short axis views. A gated Cardiolite study at peak stress was obtained. Interpretation: Rest and stress SPECT Cardiolite nuclear imaging status post realignment, normalization, and attenuation correction demonstrate on the preattenuation images the appearance of diminished myocardial perfusion/tracer uptake in portions of the basal to mid inferior segments at rest and in the basal to distal inferior segments status post stress. On the post attenuation correction images there appears to be relative uniform tracer uptake at both rest and stress.. There is diminished end-systolic thickening and brightening in the aforementioned areas. The gated Cardiolite study demonstrates diminished myocardial thickening and inward wall motion. The reported LVEF is 45%. Impression: 1. Rest and stress SPECT current nuclear imaging demonstrated discrepancy between the preattenuation corrected images and the post attenuation corrected images with the preattenuation corrected images suggesting an area potentially compatible with previous myocardial injury/infarction involving portions of the inferior segments with post-rest related findings potentially compatible with shireen-infarct related myocardial ischemia versus the post attenuation corrected images suggesting relative uniform tracer uptake and myocardial perfusion ap pearing within normal limits. 2. The gated Cardiolite study reports an LVEF of 45%. This note was generated with [employer] software. It may contain incorrect words, spelling, and punctuation that were not noted in checking the note before signing.
[2022-08-14] MEDS: Insulin Lispro 100 UNIT/ML INSULN.PEN SC ×3 (13:13→23:03)
[2022-08-14 17:05] LABS: Bedside Glucose 269 mg/dL (74-106)
[2022-08-14] MEDS: Aspirin E.C. 81 MG Tablet PO (17:17)
[2022-08-14] MEDS: Clopidogrel Bisulfate 75 MG Tablet PO (17:17)
[2022-08-14] MEDS: amLODIPine 10 MG Tablet PO (17:17)
[2022-08-14] MEDS: 0.9% Normal Saline 1,000 ML 15 ML IV (17:17)
--- NOTE | 2022-08-14 17:28 | PCM.CONS.C ---
Assessment & Plan Assessment/Plan (1) Unstable angina: PLAN: The patient presents with symptoms concerning for unstable angina pectoris. He states his symptoms are similar to but not as bad as the symptoms he had prior to his previous non-ST segment elevation PA that led to his [facility] cardiac catheterization and PTCA/stent. At the present time his cardiac enzymes trended upward but were still within the negative range. His ECG demonstrated no acute ECG changes. He has undergone noninvasive valuation as previously described. Based upon his history, his known diagnosis, his cardiovascular risks, his objective findings, it was felt reasonable to patient continue medical management as well as be considered for further evaluation in the cardiac catheterization laboratory. The procedure and risk were discussed with him. He was agreeable to this approach. In the interim he will continue medical therapy. This will include aspirin 81 mg p.o. daily, clopidogrel/Plavix 75 mg p.o. daily, nitrates as needed, his carvedilol/Coreg at 6.25 mg p.o. twice daily, atorvastatin 80 mg p.o. nightly, superimposed upon his history of amlodipine at 10 mg p.o. daily. (2) CAD (coronary artery disease): PLAN: The patient has a history of CAD. Based upon the 01-20-2015 [facility] cardiac catheterization his anatomy is as noted. He does not recall undergoing repeat invasive evaluation since that time. He will continue to be monitored. He will continue medical management as described above. He will proceed with further evaluation based upon his clinical course and objective findings with diagnostic cardiac catheterization as discussed. (3) S/P PTCA (percutaneous transluminal coronary angioplasty): PLAN: The patient has a history of PTCA. It appears that his most recent PTCA/stent procedure was the 1 performed on at [facility]. That included in-stent restenosis was subsequent additional PATRIC. At the present time he will continue medical management and reevaluation in the cardiac catheterization laboratory as noted. (4) PAD (peripheral artery disease): PLAN: The patient has history of PAD. He states he follows with Dr. Wells of peripheral vascular surgery. It appears he underwent PAD evaluation on 11-27-2021. At that time he underwent a right lower extremity angiogram, balloon angioplasty of the anterior tibial artery into the dorsalis pedis and balloon angioplasty of the entire peroneal artery. Of note, that procedure was performed via the left femoral artery approach with a subsequent angiogram of the right iliac artery system which demonstrated the common femoral artery, the profunda, and the femoral artery were widely patent. This can be taken into consideration with respect to upcoming diagnostic cardiac catheterization. (5) HLD (hyperlipidemia): PLAN: The patient will continue medical therapy with his atorvastatin. (6) Hypertension: PLAN: The patient's blood pressure will be monitored with adjustment of medicines as deemed appropriate. (7) Diabetes mellitus: PLAN: The patient does have a diabetes mellitus history. This increases his cardiovascular risk. He will continue evaluation care per internal medicine. Addt'l Comments The patient's case was discussed and reviewed with patient and Dr. Miller. Comment: Time spent in the patient's evaluation and care with respect to examination: Discussion: Documentation: Etc.: 60 minutes HPI Consult Data Date of Consult: 08/14/22 HPI Narrative HPI Narrative: ROSETTA STEWART, is a 62 year old white male who presents for vascular consultation based upon concerns of symptoms compatible with unstable angina pectoris and an abnormal stress nuclear imaging study superimposed upon a history of underlying CAD status post previous PCI, PAD, hyperlipidemia, hypertension, diabetes mellitus, and COPD/asthma. He states that he had been moving a mattress in a box spring. He developed chest discomfort and shortness of breath/dyspnea. He felt this may have been his asthma. He used his inhaler without any significant relief. He then decided to use nitroglycerin sublingual and stated he felt better. He was in contact with his PCP group. He was asked to present to the emergency department for further evaluation. He states he does note that when he goes out in the cold air he feels similar discomfort in his chest when he inhales cold air. He states he has to wrap a scarf around his mouth to minimize this. He does not complain of radiation of this discomfort from his central chest area. He does not recall having any obvious nausea or emesis or becoming diaphoretic. He denies orthopnea, PND, and ongoing peripheral pitting edema. He does not recall any near-syncope or syncope. He underwent cardiac enzyme profile which was reported as negative. His troponin I levels were 40 with subsequent increase to 53 and subsequent increase to 70. His ECG demonstrated sinus rhythm with an inferior PA pattern of indeterminate age cannot be excluded and nonspecific T wave abnormality. The patient had a chest x-ray performed. Chest x-ray was reviewed. It did not appear to demonstrate any acute cardiopulmonary disease process. He underwent a transthoracic echocardiogram earlier this day. The results are noted below. He also underwent a stress nuclear imaging study earlier this day. The results are noted below. The results suggested a discrepancy with a concern of a possible previous PA with Esteban PA related myocardial ischemia on his preattenuation corrected images. It appears he underwent diagnostic cardiac catheterization on more than 1 occasion through the [facility] system. A copy of her report from 01-20-2015 was retrieved. At that time he appeared to have angiographically significant LC X in-stent restenosis. He underwent subsequent PTCA/PATRIC. The results are noted below. At the present time he states he appears to be resting comfortably. However he knows he is not doing any exertional activity at this time. 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 Coronary artery disease Delayed wound healing Depression Diabetes mellitus Diabetes mellitus with diabetic polyneuropathy Dietary restriction DM2 (diabetes mellitus, type 2) Hallux limitus of right foot Hallux limitus of right foot Heart disease High cholesterol History of echocardiogram HTN (hypertension) Myocardial infarct Non-smoker Open wound Osteomyelitis Other specified peripheral vascular diseases PAD (peripheral artery disease) Toe infection Type 2 diabetes mellitus with diabetic polyneuropathy Type 2 diabetes mellitus with foot ulcer Uses crutches Home Medications albuterol sulfate 90 mcg/actuation aerosol inhaler 1 - 2 puff inhalation Q4H PRN PRN Wheezing 09/17/20 [History Last Taken Unknown] carvedilol 6.25 mg tablet 6.25 mg PO BID heart 09/17/20 [History Last Taken 11/01/21] clopidogrel 75 mg tablet 75 mg PO DAILY bld thinner 09/17/20 [History Last Taken 12/10/21] fluticasone propionate 50 mcg/actuation blister powder for inhalation 2 puff IH DAILY breathing 09/17/20 [History Last Taken 11/01/21] glimepiride 4 mg tablet 8 mg PO DAILY DM 09/17/20 [History Last Taken 11/01/21] metformin 1,000 mg tablet 1,000 mg PO BID DM 09/17/20 [History Last Taken 11/01/21] amlodipine 10 mg tablet 10 mg PO DAILY heart 07/10/21 [History Last Taken 12/11/21 08:00] Allergy/AdvReac Type Severity Reaction Status Date / Time No Known Allergies Allergy Verified 08/13/22 19:35 Family History Mother Diabetes Hypertension Father Diabetes Hypertension Surgical History History of coronary artery stent placement S/P peripheral artery angioplasty with stent placement Status post right foot surgery Social History household members: none Smoking Status: Never smoker alcohol intake: never substance use type: does not use ROS Constitutional Constitutional: Reports as per HPI Eyes Eyes: Reports as per HPI ENT HEENT: Reports as per HPI Cardiovascular Cardiovascular: Reports chest pain, chest pain with activity, dyspnea and dyspnea on exertion Respiratory/Chest Respiratory/Chest: Reports dyspnea on exertion Gastrointestinal Gastrointestinal: Reports as per HPI Genitourinary Genitourinary: Reports as per HPI Musculoskeletal Musculoskeletal: Reports as per HPI Integumentary Integumentary: Reports as per HPI Neurologic Neurologic: Reports as per HPI Physical Exam Const alert, oriented x3, no apparent distress and healthy appearing Orientation / Consciousness: awake HEENT normocephalic, head/scalp atraumatic and hearing grossly normal bilaterally Eyes PERRL, EOMs intact bilaterally, conjunctivae normal and no scleral icterus Neck full ROM, supple and no JVD Carotids: normal carotid upstroke Resp normal respiratory effort and clear to auscultation bilaterally Cardio regular rate, regular rhythm, S1 normal heart sound and S2 normal heart sound Heart Sounds: murmur systolic II/ soft mid left sternal border GI normal to inspection, nondistended, normoactive bowel sounds Extremity no pedal edema Skin no rashes or lesions noted Psych mental status grossly normal Risk Stratification Risk Stratification Applicable: Yes Age >/= 65: No >/= 3 CAD Risk Factors (HTN, HLD, DM, family hx of CAD, or current smoker): Yes Aspirin Use in the Past 7 Days: Yes Severe Angina (>/= episodes in 24 hours): Yes EKG ST Changes >/= 0.5mm: No Positive Cardiac Marker: No SUMA Risk Stratification Score: 3 SUMA % Risk: 13% Risk Procedure Criteria Type of Procedure Procedure Type: Elective Elective Risks - COVID COVID Risk Discussion: The surgeon/proceduralist and patient have discussed in detail the risk of exposure to and/or potential harm posed by the COVID-19 virus with having a surgery/procedure at this time versus the risk of delaying the surgery/procedure. It is not possible to know either the risk of delaying the surgery or procedure or chance of getting an infection with perfect accuracy, but a joint decision was made between the patient and the surgeon/proceduralist to proceed at this time with the scheduled surgery/procedure as indicated on the consent form. Objective Data Vital Signs: Vital Signs Temp Pulse Resp BP Pulse Ox O2 Del Method 98.5 F 75 16 162/78 H 97 Room Air 08/14/22 15:48 08/14/22 15:48 08/14/22 15:48 08/14/22 15:48 08/14/22 15:48 08/14/22 15:48 Oxygen Delivery Method Room Air Weight: 213 lb 6.519 oz Body Mass Index (BMI) 32.4 Intake & Output: Intake and Output for Last 24 Hours 08/12/22 08/13/22 08/14/22 23:59 23:59 23:59 Intake Total 0 / 0 Balance 0 / 0 Lab / Micro Data Result Diagrams: 08/14/22 02:48 08/14/22 02:48 Labs: Laboratory Results - last 24 hr 08/13/22 20:36: WBC 6.9, RBC 4.48 L, Hgb 12.6 L, Hct 37.9 L, MCV 84.6, MCH 28.1, MCHC 33.2, RDW Std Deviation 39.2, RDW Coeff of Divya 12.9, Plt Count 185, MPV 9.8, Immature Gran % (Auto) 0.600, Neut % (Auto) 62.0, Lymph % (Auto) 27.1, Wheeler % (Auto) 6.1, Eos % (Auto) 3.9, Baso % (Auto) 0.3, Absolute Neuts (auto) 4.3, Absolute Lymphs (auto) 1.87, Nucleated RBC % 0 08/13/22 20:36: Sodium 137, Potassium 4.2, Chloride 104, Carbon Dioxide 23.0, Anion Gap 10, BUN 16, Creatinine 1.37 H, Estim Creat Clear Calc 53.39, Est GFR (MDRD) Af Amer 67, Est GFR (MDRD) Non-Af 56 L, BUN/Creatinine Ratio 11.7, Glucose 323 H, Calcium 9.2, Troponin I High Sens 40 08/13/22 22:37: Troponin I High Sens 53 08/14/22 02:48: WBC 6.2, RBC 4.21 L, Hgb 11.7 L, Hct 35.5 L, MCV 84.3, MCH 27.8, MCHC 33.0, RDW Std Deviation 39.6, RDW Coeff of Divya 13.0, Plt Count 176, MPV 9.9, Immature Gran % (Auto) 0.700, Neut % (Auto) 57.5, Lymph % (Auto) 32.2, Wheeler % (Auto) 5.0, Eos % (Auto) 4.1, Baso % (Auto) 0.5, Absolute Neuts (auto) 3.5, Absolute Lymphs (auto) 1.98, Nucleated RBC % 0 08/14/22 02:48: Sodium 138, Potassium 3.6, Chloride 105, Carbon Dioxide 24.0, Anion Gap 9, BUN 13, Creatinine 1.20, Estim Creat Clear Calc 60.96, Est GFR (MDRD) Af Amer 79, Est GFR (MDRD) Non-Af 65, BUN/Creatinine Ratio 10.8, Glucose 209 H, Calcium 8.8, Triglycerides 746 H, Cholesterol 235 H, LDL Cholesterol TNP, VLDL Cholesterol TNP, HDL Cholesterol 31 L 08/14/22 02:48: Troponin I High Sens 70 08/14/22 06:19: POC Glucose 197 H 08/14/22 13:10: POC Glucose 269 H Micro: Microbiology 08/13/22 20:27 Nasal Secretion SARS-CoV-2 & FLU Antigen (Rapid) - Final Cardiology Labs/Tests 08/13/22 20:36: WBC 6.9, RBC 4.48 L, Hgb 12.6 L, Hct 37.9 L, MCV 84.6, MCH 28.1, MCHC 33.2, Plt Count 185, MPV 9.8, Immature Gran % (Auto) 0.600, Neut % (Auto) 62.0, Lymph % (Auto) 27.1, Wheeler % (Auto) 6.1, Eos % (Auto) 3.9, Baso % (Auto) 0.3, Absolute Neuts (auto) 4.3, Nucleated RBC % 0 08/13/22 20:36: Sodium 137, Potassium 4.2, Chloride 104, Carbon Dioxide 23.0, Anion Gap 10, BUN 16, Creatinine 1.37 H, Est GFR (MDRD) Af Amer 67, Est GFR (MDRD) Non-Af 56 L, BUN/Creatinine Ratio 11.7, Glucose 323 H, Calcium 9.2 08/14/22 02:48: WBC 6.2, RBC 4.21 L, Hgb 11.7 L, Hct 35.5 L, MCV 84.3, MCH 27.8, MCHC 33.0, Plt Count 176, MPV 9.9, Immature Gran % (Auto) 0.700, Neut % (Auto) 57.5, Lymph % (Auto) 32.2, Wheeler % (Auto) 5.0, Eos % (Auto) 4.1, Baso % (Auto) 0.5, Absolute Neuts (auto) 3.5, Nucleated RBC % 0 08/14/22 02:48: Sodium 138, Potassium 3.6, Chloride 105, Carbon Dioxide 24.0, Anion Gap 9, BUN 13, Creatinine 1.20, Est GFR (MDRD) Af Amer 79, Est GFR (MDRD) Non-Af 65, BUN/Creatinine Ratio 10.8, Glucose 209 H, Calcium 8.8, Triglycerides 746 H, Cholesterol 235 H, LDL Cholesterol TNP, VLDL Cholesterol TNP, HDL Cholesterol 31 L Rhythm: Sinus rhythm EKG: As noted above ECHO: As noted below Stress Test: Stress Test Report Date: 08-14-2022 Procedure: Pharmacologic stress nuclear imaging study? Indications: Chest pain; CAD; PCI Consent: Per the patient Procedure: The patient underwent pharmacologic (Regadenoson 0.4mg ) evaluation with a peak heart rate of 93 beats per minute (59%predicted maximal heart rate) and a resting blood pressure of 150/80 mmHg and a peak blood pressure of 152/80 mmHg. The baseline ECG demonstrated normal sinus rhythm; T wave abnormality: Consider myocardial ischemia: Inferior-lateral.? The peak pharmacologic ECG demonstrated continued T wave abnormality with no obvious additional ECG changes. There were no cardiac dysrhythmias pretest, during pharmacologic infusion, or recovery. There was no complaint of chest discomfort during pharmacologic infusion or recovery. The examination was discontinued secondary to completion of protocol. Impression: 1.? Pharmacologic (Regadenoson) evaluation 2.? Peak pharmacologic ECG with continued T wave abnormality with no obvious additional ECG changes. 3.? There were no cardiac dysrhythmias pretest, during pharmacologic infusion, or recovery. 4.? Nuclear images pending Myocardial perfusion imaging study: Technique: The patient was injected with 14.0 millicuries of technetium 99m Cardiolite and subsequently rest SPECT Cardiolite nuclear imaging was obtained in the horizontal long, vertical long, and short axis views. The patient underwent pharmacologic (Regadenoson) evaluation with a peak heart rate of 93 beats per minute (59% percent predicted maximal heart rate) and a resting blood pressure of 150/80 mmHg and a peak blood pressure of 152/80 mmHg. The patient was injected with 43.8 millicuries of technetium 99m Cardiolite and subsequently stress SPECT Cardiolite nuclear imaging was obtained in the horizontal long, vertical long, and short axis views.? A gated Cardiolite study at peak stress was obtained. Interpretation: Rest and stress SPECT Cardiolite nuclear imaging status post realignment, normalization, and attenuation correction demonstrate on the preattenuation images the appearance of diminished myocardial perfusion/tracer uptake in portions of the basal to mid inferior segments at rest and in the basal to distal inferior segments status post stress.? On the post attenuation correction images there appears to be relative uniform tracer uptake at both rest and stress..? There is diminished end-systolic thickening and brightening in the aforementioned areas.? The gated Cardiolite study demonstrates diminished myocardial thickening and inward wall motion.? The reported LVEF is 45%. Impression: 1.? Rest and stress SPECT current nuclear imaging demonstrated discrepancy between the preattenuation corrected images and the post attenuation corrected images with the preattenuation corrected images suggesting an area potentially compatible with previous myocardial injury/infarction involving portions of the inferior segments with post-rest related findings potentially compatible with shireen-infarct related myocardial ischemia versus the post attenuation corrected images suggesting relative uniform tracer uptake and myocardial perfusion appearing within normal limits. 2.? The gated Cardiolite study reports an LVEF of 45%. Cardiac Cath: 01-20-2015: [facility] Left main: Mild diffuse disease LAD: Ostial 50% stenosis; proximal 60 to 70% stenosis Diagonal branch 1: 50% stenosis LCx: Mid 50% stenosis; distal 95% in-stent restenosis RCA: Proximal 70% stenosis; mid 50% stenosis PCI: 01-20-2015: [facility] LCx in-stent restenosis: Promus Premier drug-eluting stent: 3.0x12 Radiography Diagnostic Testing: Radiology Impression Chest X-Ray 08/13/22 21:00 IMPRESSION: There are no acute findings. Electronically Signed: Inderjit Knapp MD at 21:15 EST Reading Location ID and State: [facility] [place] , Service support , Echocardiogram 08/14/22 05:55 Interpretation Summary The study was technically difficult. Segmental dysfunction with preserved ejection fraction (see wall motion). The estimated ejection fraction is 55 %. There is mild to moderate mitral annular calcification. Extension of the mitral annular calcification onto the base of the posterior mitral valve leaflet. Mild-Moderate (1-2+) eccentric mitral valve insufficiency. Trivial tricuspid valve insufficiency. Mild diffuse aortic valve calcification. Mild aortic stenosis. Trivial pulmonic valve insufficiency. Right ventricular systolic pressure estimated to be 37 mmHg. Stage 2 diastolic dysfunction. Ordering Physician: Raymond Erazo Referring Physician: Earle Malagon Performed By: Suzi Fonseca, RDTHAD, RVT
[2022-08-14 17:45] LABS: Bedside Glucose 180 mg/dL (74-106)
--- NOTE | 2022-08-14 20:14 | PCM.HOSP.N ---
Hospitalist Note Patient was seen and examined today, I discussed his care with cardiology, patient had a stress test today which showed an area that appeared to be an old infarction and also an area of shireen-infarction ischemia. I believe the patient has unstable angina, I consulted cardiology and he will undergo a cardiac catheterization tomorrow. I have restarted the patient's home medications, patient states his last cardiac catheterization was approximately 4 years ago, he tells me that he had stents placed at that time, his original cardiac catheterization was 14 years ago according to the patient.
[2022-08-14] MEDS: Carvedilol 6.25 MG Tablet PO (23:03)
[2022-08-14] MEDS: Atorvastatin Calcium 80 MG Tablet PO (23:03)
[2022-08-15] VITALS (19 sets, daily range): BP systolic 123–176; BP diastolic 60–148; PULSE 67–87; RESP 12–18; TEMP 36.6–36.8; O2SAT 95–99
[2022-08-15 00:25] LABS: Bedside Glucose 312 mg/dL (74-106)
--- NOTE | 2022-08-15 05:46 | EKG12_ITS ---
Test Reason : AM EKG Blood Pressure : / mmHG Vent. Rate : 070 BPM Atrial Rate : 070 BPM P-R Int : 148 ms QRS Dur : 080 ms QT Int : 410 ms P-R-T Axes : 009 -05 -42 degrees QTc Int : 442 ms Normal sinus rhythm Inferior infarct , age undetermined Abnormal ECG When compared with ECG of 14-AUG-2022 02:36, MANUAL COMPARISON REQUIRED, DATA IS UNCONFIRMED Confirmed by YESSENIA MARCUS, ALEJANDRA ([id number]), subeditor HERNAN JACINTO ([id number]) on 08/16/2022 6:40:11 AM Referred By: Confirmed By:KERRIE CASAS MD
--- NOTE | 2022-08-15 05:55 | EKG12_ITS ---
Test Reason : CP ADMIT Blood Pressure : / mmHG Vent. Rate : 071 BPM Atrial Rate : 071 BPM P-R Int : 152 ms QRS Dur : 082 ms QT Int : 398 ms P-R-T Axes : 016 -02 -50 degrees QTc Int : 432 ms Normal sinus rhythm Inferior infarct , age undetermined , cannot be excluded Nonspecific T wave abnormality Abnormal ECG Confirmed by NAT MARCUS, MANDY ([id number]), order editor HERNAN JACINTO ([id number]) on 08/15/2022 9:50:33 AM Referred By: Confirmed By:MANDY JOHNS MD
[2022-08-15] MEDS: amLODIPine 10 MG Tablet PO (05:58)
[2022-08-15] MEDS: Aspirin E.C. 81 MG Tablet PO (05:58)
[2022-08-15] MEDS: Carvedilol 6.25 MG Tablet PO ×2 (05:58→20:43)
[2022-08-15] MEDS: 0.9% Saline Lock 10 ML Syringe IV (06:11)
[2022-08-15] MEDS: Clopidogrel Bisulfate 75 MG Tablet PO (07:26)
[2022-08-15 07:36] LABS: Bedside Glucose 292 mg/dL (74-106)
--- NOTE | 2022-08-15 08:30 | CASEMGMT ---
Tertiary Facilities in network with patient's insurance: [facility], [facility], [facility], , [facility].
[2022-08-15] MEDS: 0.9% Normal Saline 1,000 ML 75 ML IV (09:05)
--- NOTE | 2022-08-15 09:12 | CL.D_ITS ---
Patient Name: ROSETTA STEWART Study Date: 08/15/2022 Performing: Carlos Rebolledo MD Ht: 68 inches 172.72 cm : 1960 Wt: 213.7 lbs 96.8 kg Age: 62 Gender: male BSA: 2.1 PROCEDURE(S) PERFORMED [id number])[facility] CLINICAL PROFILE AND INDICATIONS Indications: Worsening Angina Heart Failure: None Stress/Imaging Stress/Image Study Performed: No Angina Classification Anginal Classification w/in 2 Weeks: CCS III CAD Presentations: Unstable angina. CONCLUSIONS [place] Multivessel CAD RECOMMENDATIONS Risk factor modification Medical therapy Surgery consult for coronary revascularization DESCRIPTION OF PROCEDURE The patient arrived to the procedure lab. The risks and benefits of the procedure as well as a full description of our services here and current unavailability of surgical backup were fully explained to the patient and/or their significant other prior to the catheterization. The Timeout was completed, verifying the correct patient and procedure. The patient's procedural site was prepped and draped in the usual fashion. Local anesthetic was given subcutaneously to right radial region with Lidocaine 2%. Using a modified Seldinger technique, arterial access was obtained via the right radial artery, a 6Fr sheath was inserted. Right Coronary Artery selective angiography was then performed in multiple views using a 5 Fr. 4.0 Dexter catheter. Left Coronary Artery selective angiography was performed in multiple views using a 5 Fr. JL3.5 catheter.The arterial sheath was pulled and a TR Band was applied for hemostasis. 11 cc air inserted. CORONARY ANGIOGRAPHY DOMINANCE: Right Dominant LEFT MAIN: Mild luminal irregularities LEFT ANTERIOR DESCENDING ARTERY: MID LAD: just past SP1 and DX1: 85 % Stenosis, 75 % Stenosis DISTAL LAD: 90 % Stenosis DIAGONAL 1: Proximal - lon % Stenosis CIRCUMFLEX ARTERY: PROX CIRC: Mild luminal irregularities OM 1: Mid - Previously placed stent is patent, Mid - at the end of the stent: 95 % Stenosis RIGHT CORONARY ARTERY: PROX RCA: 25 % Stenosis MID RCA: lon % Stenosis, 75 % Stenosis DISTAL RCA: 95 % Stenosis COMPLICATIONS No Complications PROCEDURE MEDICATIONS Fentanyl 50 mcg IV Versed 1 mg IV Fentanyl 50 mcg IV Versed 1 mg IV Oxygen: 2 L/min via nasal cannula Heparin given IA 08/15/2022 08:23:26 Verapamil 2.5mg, Ntg 100mcgs, 3000 units of Heparin given IA 08/15/2022 08:23:26 SUMMARY OF HEMODYNAMIC DATA Time AIR REST ECG 07:57:08 AO 119/63 (84) SA 08:28:27 AO 171/85 (122) 08:42:15 Signed By Carlos Rebolledo MD On 08/15/2022 09:12:03 Carlos Rebolledo MD
--- NOTE | 2022-08-15 10:40 | CASEMGMT ---
RN CM Face to Face with patient for initial transition planning/care coordination assessment. RN CM introduced self and role at [facility]. Patient lying in bed, alert and oriented. Patient willing to participate in assessment and is able to answer all questions appropriately. Care providers, pharmacy, and demographics verified. Patient wishes to discharge home, denies need for home health at this time. Patient states he has no further needs or concerns at this time. CM to follow for discharge planning needs that may arise. PCP: Vesna Specialists: Keiry, tool and machine maintainer STEVE Hernandez Preferred Pharmacy: [facility] Insurance: [employer] Prescription Benefit: yes Living Will/HPOA: none LNOK: mother Living Arrangements: Patient lives alone in a single story home with no steps to enter. Patient states he is independent at home. Transportation: self, mother DME/HHC: Patient states he has glucometer and supplies at home. Patient has had [facility] HHC in the past Disposition Plan: Patient to discharge home with family support and follow-up plans in place. Neyda CISNEROSN, RN, CM
[2022-08-15] MEDS: Insulin Lispro 100 UNIT/ML INSULN.PEN SC ×3 (11:16→20:41)
[2022-08-15 11:55] LABS: Bedside Glucose 228 mg/dL (74-106)
--- NOTE | 2022-08-15 12:29 | PN.HOSP_ITS ---
Subjective Subjective Doing well, chest pain has resolved. He had a cardiac cath today which was found to have triple-vessel disease and recommendation was for transfer Objective Data Objective Data Vital Signs: Vital Signs Temp Pulse Resp BP Pulse Ox O2 Del Method 98.1 F 87 16 159/146 H 98 Room Air 08/15/22 09:05 08/15/22 10:15 08/15/22 10:15 08/15/22 10:15 08/15/22 10:15 08/15/22 10:15 Oxygen Delivery Method Room Air Weight: 213 lb 6.519 oz Body Mass Index (BMI) 32.4 Intake & Output: Intake and Output for Last 24 Hours 08/14/22 08/15/22 08/16/22 03:59 03:59 03:59 Intake Total 0 / 0 Balance 0 / 0 Lab / Micro Data Result Diagrams: 08/14/22 02:48 08/14/22 02:48 Labs: Laboratory Results - last 24 hr 08/14/22 13:10: POC Glucose 269 H 08/14/22 17:21: POC Glucose 180 H 08/14/22 22:47: POC Glucose 312 H 08/15/22 06:46: POC Glucose 292 H 08/15/22 11:14: POC Glucose 228 H Micro: Microbiology 08/13/22 20:27 Nasal Secretion SARS-CoV-2 & FLU Antigen (Rapid) - Final Radiography Diagnostic Testing: Radiology Impression Echocardiogram 08/14/22 05:55 Interpretation Summary The study was technically difficult. Segmental dysfunction with preserved ejection fraction (see wall motion). The estimated ejection fraction is 55 %. There is mild to moderate mitral annular calcification. Extension of the mitral annular calcification onto the base of the posterior mitral valve leaflet. Mild-Moderate (1-2+) eccentric mitral valve insufficiency. Trivial tricuspid valve insufficiency. Mild diffuse aortic valve calcification. Mild aortic stenosis. Trivial pulmonic valve insufficiency. Right ventricular systolic pressure estimated to be 37 mmHg. Stage 2 diastolic dysfunction. Ordering Physician: Raymond Erazo Referring Physician: Earle Malagon Performed By: Suzi Fonseca, MURALI, RVT Physical Exam Narrative General: Alert, Oriented x3, Cooperative, No apparent distress HEENT: Atraumatic, PERRLA, EOMI, Normocephalic Oral: Moist Mucosa Neck: Supple, No JVD Lungs: Clear to auscultation, Normal air movement, No rhonchi, No wheeze, No rales Cardiovascular: Regular rate, Regular Rhythm, Normal S1, Normal S2, No murmurs Abdomen: Soft, Non Tender, Non-Distended, No Hepato-splenomegaly Extremities: No edema, Capillary Refill Less than 3 Seconds Skin: No rashes, No breakdown Musculoskeletal: No Tenderness to Palpation of Joints or Extremities Neurological: Cranial nerves II-XII grossly intact, Motor Exam 5/5 strength throughout, Sensory exam intact to light touch and pain Psych/Mental Status: Normal Affect, Appropriate Assessment & Plan Assessment/Plan (1) Chest pain: (2) Dyspnea: (3) Diabetes mellitus: PLAN: Plan 1. CAD status post angioplasty/HTN/HLD ? He did her cath today which demonstrated mid LAD stenosis of 85% as well as a distal LAD of 90% stenosis and a proximal diagonal stenosis of 85%, the previous stent that was placed in the OM1 branch of the circumflex is patent but there is a 95% stenosis at the end of the stent and then there is a 90% mid RCA stenosis with a 95% distal RCA stenosis ? Plan for transfer to [facility] when they have a bed 9 we will continue home blood pressure medications including Norvasc and Coreg, will continue with his aspirin discontinue his Plavix pending transfer for possible surgical evaluation 2. DM2 ? We will hold his home metformin and glimepiride ? Continue with sliding scale insulin and Accu-Cheks ACH S ? We will monitor and make adjustments as necessary DVT: SCDs Charges/Coding Visit Charges Inpatient E&M: 30496 Subs Hosp L2
[2022-08-15 17:10] LABS: Bedside Glucose 284 mg/dL (74-106)
--- NOTE | 2022-08-15 17:14 | PN.CARD_ITS ---
Subjective Subjective The patient was evaluated earlier this day. He underwent evaluation with diagnostic cardiac catheterization. The results are as noted. At the moment he denies any ongoing symptoms of chest discomfort or difficulty breathing. He appears to be resting comfortably. Objective Data Vital Signs: Vital Signs Temp Pulse Resp BP Pulse Ox O2 Del Method 98.1 F 77 15 143/78 H 98 Room Air 08/15/22 15:40 08/15/22 15:40 08/15/22 15:40 08/15/22 15:40 08/15/22 15:40 08/15/22 15:40 Oxygen Delivery Method Room Air Weight: 213 lb 6.519 oz Body Mass Index (BMI) 32.4 Intake & Output: Intake and Output for Last 24 Hours 08/13/22 08/14/22 08/15/22 23:59 23:59 23:59 Intake Total 0 / 0 637.50 / 637.50 Balance 0 / 0 637.50 / 637.50 Lab / Micro Data Result Diagrams: 08/14/22 02:48 08/14/22 02:48 Labs: Laboratory Results - last 24 hr 08/14/22 17:21: POC Glucose 180 H 08/14/22 22:47: POC Glucose 312 H 08/15/22 06:46: POC Glucose 292 H 08/15/22 11:14: POC Glucose 228 H 08/15/22 16:11: POC Glucose 284 H Cardiology Labs/Tests Rhythm: Sinus rhythm Cardiac Cath: CONCLUSIONS [place] Multivessel CAD RECOMMENDATIONS Risk factor modification Medical therapy Surgery consult for coronary revascularization DESCRIPTION OF? PROCEDURE The patient arrived to the procedure lab. The risks and benefits of the procedure as well as a full description of our services here and current unavailability of surgical backup were fully explained to the patient and/or their significant other prior to the catheterization. The Timeout was completed, verifying the correct patient and procedure. The patient's procedural site was prepped and draped in the usual fashion. Local anesthetic was given subcutaneously to right radial region with Lidocaine 2%. Using a modified Seldinger technique, arterial access was obtained via the right radial artery, a 6Fr sheath was inserted.? Right Coronary Artery selective angiography was then performed in multiple views using a 5 Fr. 4.0 Mena catheter. Left Coronary Artery selective angiography was performed in multiple views using a 5 Fr. JL3.5 catheter.The arterial sheath was pulled and a TR Band was applied for hemostasis. 11 cc air inserted. CORONARY ANGIOGRAPHY DOMINANCE:? Right Dominant LEFT MAIN: Mild luminal irregularities LEFT ANTERIOR DESCENDING ARTERY: MID LAD: just past SP1 and DX1: 85 % Stenosis, 75 % Stenosis DISTAL LAD: 90 % Stenosis DIAGONAL 1: Proximal - lon % Stenosis CIRCUMFLEX ARTERY: PROX CIRC: Mild luminal irregularities OM 1: Mid - Previously placed stent is patent, Mid - at the end of the stent: 95 % Stenosis RIGHT CORONARY ARTERY: PROX RCA: 25 % Stenosis MID RCA: lon % Stenosis, 75 % Stenosis DISTAL RCA: 95 % Stenosis Physical Exam Const alert, oriented x3, no apparent distress and healthy appearing Orientation / Consciousness: awake HEENT normocephalic, head/scalp atraumatic and hearing grossly normal bilaterally Eyes PERRL, EOMs intact bilaterally, conjunctivae normal and no scleral icterus Neck full ROM, supple and no JVD Carotids: normal carotid upstroke Resp normal respiratory effort and clear to auscultation bilaterally Cardio regular rate, regular rhythm, S1 normal heart sound and S2 normal heart sound Heart Sounds: murmur systolic II/ soft mid left sternal border GI normal to inspection, nondistended, normoactive bowel sounds Extremity no pedal edema Extremity Narrative: Right radial artery: Pulses: 2+/4+: No bruits: No hematoma Skin no rashes or lesions noted Psych mental status grossly normal Assessment & Plan Assessment/Plan (1) Unstable angina: PLAN: The patient presents with symptoms concerning for unstable angina pectoris. He has undergone further noninvasive and invasive valuation as noted. The present time he will need to continue medical management. This will include aspirin, nitrates as needed, beta-blockers, lipid-lowering agents, etc. His antiplatelet agents are being placed on hold in anticipation for upcoming CABG. (2) CAD (coronary artery disease): PLAN: The patient has a history of CAD. Based upon the 01-20-2015 [facility] cardiac catheterization his anatomy is as noted. His [facility] cardiac catheterization is noted diffuse high- grade multivessel disease. He will continue medical therapy. He has been recommended for transfer to a tertiary care center for consideration for CABG. (3) S/P PTCA (percutaneous transluminal coronary angioplasty): PLAN: The patient has a history of PTCA. It appears that his most recent PTCA/stent procedure was the 1 performed on at [facility]. That included in-stent restenosis was subsequent additional PATRIC. His most recent catheterization procedure and findings are as noted. Again it appears at this time he needs continued medical therapy and consideration for CABG. (4) PAD (peripheral artery disease): PLAN: The patient has history of PAD. He states he follows with Dr. Wells of peripheral vascular surgery. It appears he underwent PAD evaluation on 11-27-2021. At that time he underwent a right lower extremity angiogram, balloon angioplasty of the anterior tibial artery into the dorsalis pedis and balloon angioplasty of the entire peroneal ar lusi. Of note, that procedure was performed via the left femoral artery approach with a subsequent angiogram of the right iliac artery system which demonstrated the common femoral artery, the profunda, and the femoral artery were widely patent. His cardiac catheterization procedure was performed through the radial artery approach thus avoiding his lower extremity arterial system. (5) HLD (hyperlipidemia): PLAN: The patient will continue medical therapy with his atorvastatin. (6) Hypertension: PLAN: The patient's blood pressure will be monitored with adjustment of medicines as deemed appropriate. (7) Diabetes mellitus: PLAN: The patient does have a diabetes mellitus history. This increases his cardiovascular risk. He will continue evaluation care per internal medicine. Addt'l Comments The patient's case was discussed and reviewed at length with the patient as well as with Dr. Rodríguez. At the present time it was recommended the patient be transferred to a tertiary care center for further evaluation and care by CT surgery for CABG. The patient's case was discussed and reviewed with the [facility] CT surgery team. The patient was accepted in transfer. This note was generated using a voice recognition system and there may be incorrect words, spelling or punctuation that were not noted when reviewing the office note prior to saving. Procedure Criteria Type of Procedure Procedure Type: Elective Elective Risks - COVID COVID Risk Discussion: The surgeon/proceduralist and patient have discussed in detail the risk of exposure to and/or potential harm posed by the COVID-19 virus with having a surg gwendolyn/procedure at this time versus the risk of delaying the surgery/procedure. It is not possible to know either the risk of delaying the surgery or procedure or chance of getting an infection with perfect accuracy, but a joint decision was made between the patient and the surgeon/proceduralist to proceed at this time with the scheduled surgery/procedure as indicated on the consent form.
--- NOTE | 2022-08-15 17:53 | PCM.DC.SUM ---
Providers Date of Admission: 08/14/22 Primary Care Physician: Dr. Nitin Malagon MD Consultations 08/14/22 14:22 Consult: Cardiology Routine Consulting Provider: Carlos Rebolledo Reason for Consult: unstable angina EMERGENT Consult: No MD Notified: Yes Date Notified: 08/14/22 Time Notified: 14:22 Method of Notification: Verbal Method of Consult:: In-Person Reason For Visit: DYSPNEA; CHEST PAIN Diagnosis Discharge Diagnosis (1) Unstable angina: Status: Acute Code(s): I20.0 - Unstable angina (2) CAD (coronary artery disease): Status: Acute Code(s): I25.10 - Atherosclerotic heart disease of [place] coronary artery without angina pectoris (3) S/P PTCA (percutaneous transluminal coronary angioplasty): Status: Acute Code(s): Z98.61 - Coronary angioplasty status (4) PAD (peripheral artery disease): Status: Acute Code(s): I73.9 - Peripheral vascular disease, unspecified (5) HLD (hyperlipidemia): Status: Acute Code(s): E78.5 - Hyperlipidemia, unspecified (6) Hypertension: Status: Chronic Code(s): I10 - Essential (primary) hypertension (7) Diabetes mellitus: Status: Acute Code(s): E11.9 - Type 2 diabetes mellitus without complications Plan 1. CAD status post angioplasty/HTN/HLD ? He did her cath today which demonstrated mid LAD stenosis of 85% as well as a distal LAD of 90% stenosis and a proximal diagonal stenosis of 85%, the previous stent that was placed in the OM1 branch of the circumflex is patent but there is a 95% stenosis at the end of the stent and then there is a 90% mid RCA stenosis with a 95% distal RCA stenosis ? Plan for transfer to [facility] when they have a bed 9 we will continue home blood pressure medications including Norvasc and Coreg, will continue with his aspirin discontinue his Plavix pending transfer for possible surgical evaluation 2. DM2 ? We will hold his home metformin and glimepiride ? Continue with sliding scale insulin and Accu-Cheks ACH S ? We will monitor and make adjustments as necessary DVT: SCDs Medications at Discharge Home Medications albuterol sulfate 90 mcg/actuation aerosol inhaler 1 - 2 puff inhalation Q4H PRN PRN Wheezing 09/17/20 carvedilol 6.25 mg tablet 6.25 mg PO BID heart 09/17/20 clopidogrel 75 mg tablet 75 mg PO DAILY bld thinner 09/17/20 fluticasone propionate 50 mcg/actuation blister powder for inhalation 2 puff IH DAILY breathing 09/17/20 glimepiride 4 mg tablet 8 mg PO DAILY DM 09/17/20 metformin 1,000 mg tablet 1,000 mg PO BID DM 09/17/20 amlodipine 10 mg tablet 10 mg PO DAILY heart 07/10/21 Hospital Course Operations None Procedures 2-D Echocardiogram, Cardiac catheterization and Nuclear stress test Summary of Care Provided Minutes Spent on Discharge: 39 Hospital Course: Per HPI: ROSETTA STEWART, is a 62 M with a significant history of CAD status post stents; diabetes mellitus and hypertension who presented to emergency department with substernal chest pain that radiated to his back.? The pain started after patient lifted some mattress with its box spring.? He describes his pain as tightness.? The severity of his pain was 7 on a scale of 1-10.? He took some albuterol inhaler and nitroglycerin tablets and had some relief.? He is unsure whether it was albuterol inhaler or nitroglycerin which give him the relief.? However patient think that his symptoms may be from asthma.? Reportedly cold air causes him to have chest tightness and with his presenting symptoms cold air exacerbated his symptoms. Associated with symptoms is shortness of breath.? He denies any nausea or vomiting. Hospital Course: 1. Unstable angina CAD status post angioplasty/HTN/HLD?62-year-old male presents to the hospital with chest pain that was radiating to his back troponins were normal though they peaked at 70. He has had a previous history of stents so he had an echo done which demonstrated an EF of 55% with stage II diastolic dysfunction and mild aortic stenosis. He had a stress test which showed possible previous VA, with shireen-infarct related myocardial ischemia. Cardiology recommended proceeding with a heart cath which demonstrated mid LAD stenosis of 85% as well as a distal LAD of 90% stenosis and a proximal diagonal stenosis of 85%, the previous stent that was placed in the OM1 branch of the circumflex is patent but there is a 95% stenosis at the end of the stent and then there is a 90% mid RCA stenosis with a 95% distal RCA stenosis. In discussion with cardiology they recommended transfer to tertiary care center for surgical evaluation given the extent of his stenoses. His Plavix has been held but he is on aspirin as well as Lipitor and Norvasc. He was also continued on his Coreg during his hospitalization. Cardiology discussed the case with cardiology at [facility] who have accepted him in transfer. Plan will be for discharge this evening as they have a bed. 2. Type 2 diabetes is chronic medical condition which complicates his care. His home medications include metformin at 1000 mg p.o. twice daily as well as glimepiride 8 mg p.o. daily which can be continued on discharge. Weight / BMI Weight Weight: 213 lb 6.519 oz Body Mass Index (BMI) 32.4 ABG / Lab / Microbiology Data Result Diagrams: 08/14/22 02:48 08/14/22 02:48 Laboratory: Laboratory Results - last 24 hr 08/14/22 22:47: POC Glucose 312 H 08/15/22 06:46: POC Glucose 292 H 08/15/22 11:14: POC Glucose 228 H 08/15/22 16:11: POC Glucose 284 H Microbiology: Microbiology 08/13/22 20:27 Nasal Secretion SARS-CoV-2 & FLU Antigen (Rapid) - Final Meaningful Use Info Meaningful Use Diagnoses (Choose all that apply): None applicable Discharge Plan Admission Admit Date/Time: 08/14/22 12:02 Attending Provider: Ronal Rodríguez Primary Care Provider: Nitin Malagon Consulting Providers: Raymond Erazo ; Carlos Rebolledo ; Anthony Miller Discharge Orders/Prescriptions Prescriptions: No Action fluticasone propionate 50 MCG blister with device 2 puff IH DAILY carvedilol 6.25 MG tablet 6.25 mg PO BID clopidogrel 75 MG tablet 75 mg PO DAILY metformin 1,000 MG tablet 1,000 mg PO BID glimepiride 4 MG tablet 8 mg PO DAILY albuterol sulfate 1 INHALER inhaler 1 - 2 puff INHALATION Q4H PRN PRN (Reason: Wheezing) amlodipine 10 mg Tablet 10 mg PO DAILY Referrals / Follow Up: Nitin Malagon MD [Primary Care Provider] - Disposition Discharge Orders: Discharge Patient (Routine); Ordered 08/15/22 Ordered By: Dr. Ronal Rodríguez Charges/Coding Visit Charges Inpatient E&M: 60845 Disch Hosp >30min
--- NOTE | 2022-08-15 17:58 | NURSING ---
Report called to REJI Ravi at [facility].
[2022-08-15] MEDS: Atorvastatin Calcium 80 MG Tablet PO (20:43)
[2022-08-15 23:40] LABS: Bedside Glucose 276 mg/dL (74-106)
== END 2022-08-15 21:40 | disposition short-term general hospital (02) | DRG 287 ==
LOC: ED 08-14 00:06 → PCU 08-14 00:59
PROVIDERS: Internal Medicine; Admitting Provider Hospitalist; Emergency Provider Emergency Medicine; PCP Family Medicine; Visit Provider Family Medicine
DX: I25.110 Atherosclerotic heart disease of native coronary artery with unstable angina pectoris (principal); E11.42 Type 2 diabetes mellitus with diabetic polyneuropathy; E11.51 Type 2 diabetes mellitus with diabetic peripheral angiopathy without gangrene; E11.65 Type 2 diabetes mellitus with hyperglycemia; J44.9 Chronic obstructive pulmonary disease, unspecified; E78.00 Pure hypercholesterolemia, unspecified; I10 Essential (primary) hypertension; I35.0 Nonrheumatic aortic (valve) stenosis; I25.2 Old myocardial infarction; Z98.61 Coronary angioplasty status; Z79.02 Long term (current) use of antithrombotics/antiplatelets; Z79.82 Long term (current) use of aspirin; Z79.84 Long term (current) use of oral hypoglycemic drugs; Z79.899 Other long term (current) drug therapy
CPT/HCPCS: 71045; 78452; 80048; 80061; 82962; 84484; 85025; 87428; 93005; 93017; 93306; 93454; 94760; 99152; 99153; 99284; A9500; J7030; A4216; C1769; C1894; J2785; Q9967

== ENCOUNTER 2022-11-07 08:30 | Outpatient (RCR) | payer OTHER, SELFPAY ==
--- NOTE | 2022-10-11 08:55 | HP.OTEVAL_ITS ---
Patient's Visit Information ROSETTA STEWART is a 62 year old M, referred to Occupational Therapy by Dr. Nitin Malagon MD, with a diagnosis of left forearm pain. Date of Evaluation: 10/11/22 Occupational Therapist: Radha Barfield, TATUMR/[place], CHT - Subjective This 62 year old male was seen for OT eval with dx of left forearm pain. pt states he had CABAGx3 2022. pt states they used the left forearm artery for CABGx3. pt states he was working out every other day and could typically do 20-25# bicep curls comfortably. pt states he is retired from [employer] about a year and a half ago. pt states he now spends his time working in his yard and landscape. pt states pain limits him with ALDs and IADLs and he wants to know what he can do to decrease pain and improve his ROM. - Pain left forearm 6 Pain Intensity Range: 8, 9 - ROM Wrist: right 55/55 left 30/50 - Strength Shoulder: right shoulder flex 23# left 17# Elbow: right triceps 29# left 32# biceps 33# left 33# Lead Care Manager: right 60# left 55# Lateral Pinch: right 18# left 20# Tripod Pinch: right 10# left 10# - Quick DASH-Disab of Arm,Shoulder& Hand Quick DASH Score: 34.0900 - Goals Goal:: pt will demo a increase in left solution consultant strength by 15# or greater to increase pts ind. with ADLs and IADls by d/c Goal:: pt will demo a increase in left wrist ext by 20* to increase pts ind with ADLs and IADls by d.c Goal:: pt will report no pain greater than 2/10 with use of left UE for IADLs and ADLs by d.c. pt will report no pain with AROM of wrist flex/ext and forearm supination by d/c - Rehabilitation General Assessment: pt demo with left forearm Soft tissue tightness and possible scar adhesions from artery harvesting increasing pain and limiting ROM. Pain limits pt with all ADLs and IADLs at this time. pt would benefit from skilled OT services 2-3x week for 4 weeks to increase ROM, decrease scar adhesions, decrease pain and return pt to PLOF> Rehabilitation Potential: Good - Anticipated Interventions A/AAROM/PROM, Triggerpoint Release, Sensory Retraining, Education re assistive Equipment, Education re Diagnosis, Home Program - Visit Plan Frequency: 2-3x /Week Duration: 4 Weeks General Plan: will decrease scar adhesion. increase left wrist ex. modalities US or PB as needed. cardiac rehab will work on UB strength TEXT: Thank you for the opportunity to evaluate your patient. For Medicare and Medicare HMO plans, please review the plan of care and approve it. It will need to be FAXED BACK to us at [phone] for Medicare purposes. Please let me know if there are questions or concerns regarding this plan of care. Physician Signature: Date:
--- NOTE | 2022-11-07 08:56 | HP.OTDCSUM_ITS ---
It has been my pleasure to treat ROSETTA STEWART under orders from Dr. Nitin Malagon MD, for the diagnosis of left forearm pain for a total of 8 visit(s). Please see the following information for a summary of their discharge status. % Improvement: 100 Objective/Function: left wrist 40/55 increase from 30/50. left film laboratory technician strength 60# increase by 5#. pt has made good gains with his soft-tissue mobility where his harvesting was located- pt demo understanding to continue with scar massage- and stretching Patient Goals: Regain Mobility, Decrease Pain, Use Hand/Wrist/Arm Normally Again Goal:: pt will demo a increase in left film laboratory technician strength by 15# or greater to increase pts ind. with ADLs and IADls by d/c Goal:: pt will demo a increase in left wrist ext by 20* to increase pts ind with ADLs and IADls by d.c Goal:: pt will report no pain greater than 2/10 with use of left UE for IADLs and ADLs by d.c. pt will report no pain with AROM of wrist flex/ext and forearm supination by d/c Plan: D/C Discharge Comments: pt was seen for 8 OT sessions due to left forearm pain following a vain harvesting- pt has returned to performing his ADLS and IADLs at IND. levels. Pt has been compliant with his HEP and reports he is now lifting 25#. pt agrees to D/C with HEP. If there are questions or concerns regarding this patient's occupational therapy, please fell free to call me at [phone]. Thank you for the referral of this patient. Sincerely, Radha Barfield, OTR/L, CHT
== END 2022-11-07 09:57 | disposition home or self-care (01) ==
LOC: OT 08:30
PROVIDERS: PCP Family Medicine; Referring Provider Family Medicine; Visit Provider Family Medicine
DX: M79.632 Pain in left forearm (principal)
CPT/HCPCS: 97035; 97110; 97140; 97166; 97530

== ENCOUNTER → 2023-01-15 | Outpatient (CLI) | payer OTHER, SELFPAY ==
--- NOTE | 2023-01-15 08:53 | ADUL_ITS ---
Reason For Study: Stricture of artery Right Velocities Ext. Iliac Artery, dist = 91.6 cm./sec. Common Femoral Artery, mid = 121.6 cm./sec. Supf Femoral Artery, prox = 83.4 cm./sec. Supf Femoral Artery, mid = 71.1 cm./sec. SFA distal, Prox stent, 105.8 cm/sec. SFA distal, Mid stent, 105.8 cm/sec. Ольга prox, Distal stent, 89.3 cm/sec. Ольга mid, 58.8 cm/sec. Profunda Femoral Artery = 63.7 cm./sec. CARGO AGENT, No flow. PeroA, No flow. Ant. Tibial Artery, prox = 63.2 cm./sec. Ant. Tibial Artery, mid = 48.1 cm./sec. Ant. Tibial Artery, dist = 50 cm./sec. Procedure Exam performed in department. VL/US Art Duplex Unilat Lower Ext Interpretation Summary Right leg with posterior tibial and peroneal occlussion. Otherwise no stenosis and triphasic flow through anterior tibial. Ordering Physician: Adrien Wells Referring Physician: Earle Malagon Performed By: Neyda Laura RVT
--- NOTE | 2023-01-15 08:53 | ART_ITS ---
Reason For Study: Stricture of artery Procedure A bilateral lower extremity continuous wave Doppler with analog waveform analysis and ankle brachial indexes. Left Segmental Pressures Left brachial= 123mmHg. Left posterior tibial artery = >254mmHg. Left dorsalis pedis artery = >254mmHg. Left digit = 33 mmHg. The left dorsalis pedis waveforms are biphasic. The left posterior tibial artery waveforms are biphasic. Right Segmental Pressures Right brachial= 127mmHg. Right posterior tibial artery = 111mmHg. Right dorsalis pedis artery = 153mmHg. The right dorsalis pedis waveforms are biphasic. The right posterior tibial artery waveforms are biphasic. Indices The right ankle brachial index by the dorsalis pedis is 1.20. The right ankle brachial index by the posterior tibial artery is 0.87. The left ankle brachial index by the dorsalis pedis is NC. The left ankle brachial index by the posterior tibial artery is NC. The left digital-brachial index is 0.26. VL/Ankle Brachial Index Interpretation Summary Bilateral biphaic at ankle with right RACHEL 1.2 and left noncompressible. DBI 0.8 7 and 0.26 with small disease on left. Ordering Physician: Adrien Wells Referring Physician: Earle Malagon Performed By: Neyda Laura RVT
== END | disposition home or self-care (01) ==
LOC: CVS 08:52
PROVIDERS: PCP Family Medicine; Referring Provider Surgery Vascular Surgery; Visit Provider Surgery Vascular Surgery
DX: I77.1 Stricture of artery (principal); I70.213 Atherosclerosis of native arteries of extremities with intermittent claudication, bilateral legs
CPT/HCPCS: 93922; 93926

== ENCOUNTER 2024-04-11 12:46 | Inpatient (IN) | payer MEDICARE, SELFPAY ==
[2024-04-11] VITALS (12 sets, daily range): BP systolic 135–197; BP diastolic 64–95; PULSE 70–98; RESP 16–18; TEMP 36.6–37.1; O2SAT 94–100; BMI 31.4; BMI 30.9
--- NOTE | 2024-04-11 13:52 | EX.ED.DYSGE1 ---
HPI History of Present Illness Chief Complaint: Wound Informant: patient Narrative Narrative: 64-year-old diabetic male presenting to the emergency room with redness of the left foot. Patient states that he was seeing Dr. Browne from podiatry in the past. He has had amputation on the right foot. He notes a chronic wound to the left great toe which has been healing. He notes a chronic wound to the plantar lateral surface of the left fifth MTP. Patient notes that his left foot over the past 2 days has had increasing redness. He notes a sharp line of demarcation across the base of the toes and at the base of the ankle joint. [facility] Medical History Essential hypertension Atherosclerotic heart disease of [place] coronary artery without angina pectoris History of left heart catheterization (LHC) (~08/15/22) CAD (coronary artery disease) Hypertension History of coronary artery disease Cardiology follow-up encounter History of echocardiogram Open wound Uses crutches High cholesterol Dietary restriction Non-smoker Asthma Coronary artery disease 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 Diabetes mellitus with diabetic polyneuropathy Type 2 diabetes mellitus with foot ulcer Other specified peripheral vascular diseases Osteomyelitis PAD (peripheral artery disease) Delayed wound healing Hallux limitus of right foot Anxiety Depression Myocardial infarct Hallux limitus of right foot Type 2 diabetes mellitus with diabetic polyneuropathy Toe infection Heart disease HTN (hypertension) Diabetes mellitus CAD (coronary artery disease) DM2 (diabetes mellitus, type 2) Asthma Home Medications ?Medication ?Instructions ?Recorded ?Last Taken ?Type albuterol sulfate 90 mcg/actuation 1 - 2 puff inhalation Q4H PRN PRN 09/17/20 Unknown History aerosol inhaler Wheezing clopidogrel 75 mg tablet 75 mg PO DAILY bld thinner 09/17/20 12/10/21 History fluticasone propionate 50 2 puff IH DAILY breathing 09/17/20 11/01/21 History mcg/actuation blister powder for inhalation amlodipine 10 mg tablet 10 mg PO DAILY heart 07/10/21 12/11/21 08:00 History acetaminophen 500 mg tablet 1,000 mg PO Q6H PRN 08/29/22 Unknown History ascorbic acid (vitamin C) 500 mg 500 mg PO DAILY 08/29/22 Unknown History tablet aspirin 81 mg tablet,delayed 81 mg PO DAILY 08/29/22 Unknown History release (Adult Low Dose Aspirin) empagliflozin 25 mg tablet 25 mg PO DAILY 08/29/22 Unknown History ezetimibe 10 mg tablet (Zetia) 10 mg PO DAILY 08/29/22 Unknown History ferrous sulfate 325 mg (65 mg 325 mg PO DAILY 08/29/22 Unknown History iron) tablet,delayed release fluticasone propionate 50 1 spray intranasal DAILY 08/29/22 Unknown History mcg/actuation nasal spray,suspension (Allergy Relief (fluticasone)) folic acid 1 mg tablet 1 mg PO DAILY 08/29/22 Unknown History furosemide 20 mg tablet 20 mg PO DAILY 08/29/22 Unknown History gabapentin 100 mg capsule 200 mg PO BID 08/29/22 Unknown History insulin aspart U-100 100 unit/mL 12 unit subcut TID 08/29/22 Unknown History (3 mL) subcutaneous pen (Novolog FlexPen U-100 Insulin aspart) lidocaine 4 % topical patch 1 patch topical BID PRN 08/29/22 Unknown History (Salonpas (lidocaine)) magnesium oxide 400 mg PO DAILY 08/29/22 Unknown History melatonin 3 mg tablet 3 mg PO HS PRN 08/29/22 Unknown History metformin 500 mg tablet 500 mg PO BID 08/29/22 Unknown History metoprolol tartrate 25 mg tablet 25 mg PO BID 08/29/22 Unknown History nitroglycerin 0.4 mg sublingual 0.4 mg sublingual Q5-15M PRN 08/29/22 Unknown History tablet potassium chloride 10 mEq 10 meq PO DAILY 08/29/22 Unknown History tablet,extended release rosuvastatin 20 mg tablet 20 mg PO QHS 08/29/22 Unknown History sertraline 100 mg tablet 100 mg PO DAILY 08/29/22 Unknown History sitagliptin phosphate 100 mg 100 mg PO DAILY 08/29/22 Unknown History tablet (Januvia) tramadol 50 mg tablet 50 mg PO BID PRN 08/29/22 Unknown History Allergy/AdvReac Type Severity Reaction Status Date / Time No Known Allergies Allergy Verified 04/11/24 12:48 Family History Mother Diabetes Hypertension Father Diabetes Hypertension Surgical History History of coronary artery bypass graft x 3 (~08/21/22) Status post right foot surgery S/P peripheral artery angioplasty with stent placement (~07/25/21) History of coronary artery stent placement Social History household members: none Smoking Status: Never smoker alcohol intake: never substance use type: does not use ROS ROS ED Constitutional Constitutional ED: Denies chills, fever(s) or weight loss Eyes Eyes: Denies change in vision or diplopia ENT ENT ED: Denies ear pain, rhinorrhea or sore throat Cardiovascular Cardiovascular: Denies chest pain, orthopnea, palpitations or racing heartbeat Respiratory/Chest Respiratory/Chest: Denies cough, dyspnea or orthopnea Gastrointestinal Gastrointestinal: Denies abdominal pain, diarrhea, nausea or vomiting Genitourinary Genitourinary ED: Denies dysuria, hematuria or urinary frequency Musculoskeletal Musculoskeletal: Denies arthralgias or myalgias Integumentary Reports rash; Denies abscess Neurologic Neurologic: Denies headache(s) or weakness Psychiatric Psychiatric: Denies anxiety, depression, suicidal ideation or suicidal thoughts Endocrine Endocrinology: Denies polydipsia, polyphagia or polyuria Allergic/Immunologic Allergic/Immunologic ED: Denies mouth swelling, tongue swelling or urticaria EXAM Physical Exam Const Vital Signs: 04/11/24 12:46 04/11/24 12:48 04/11/24 13:48 Temperature 98.2 F 98.2 F 98.8 F Temperature Source Temporal Oral Oral Pulse Rate 87 87 88 Respiratory Rate 16 16 16 Blood Pressure 135/71 H 135/71 H 172/64 H Blood Pressure Mean 92 92 100 Pulse Ox 96 96 97 Oxygen Delivery Method Room Air Room Air Room Air 04/11/24 14:48 04/11/24 15:00 04/11/24 16:00 Temperature 98.8 F 98.8 F 98.0 F Temperature Source Oral Oral Oral Pulse Rate 78 70 84 Respiratory Rate 18 18 18 Blood Pressure 145/74 H 135/84 H 146/86 H Blood Pressure Mean 97 101 106 Pulse Ox 97 97 94 Oxygen Delivery Method Room Air Room Air Room Air Positive well nourished and well developed General Appearance ED: well developed HEENT Reports normocephalic, head/scalp atraumatic and moist mucous membranes Eyes PERRL and EOMs intact bilaterally Neck no lymphadenopathy, supple and no JVD Resp normal respiratory effort and clear to auscultation bilaterally Cardio regular rate, regular rhythm and no murmurs GI normal to inspection, nondistended, normoactive bowel sounds and non-tender Palpation: soft Back/Spine no CVA tenderness and normal ROM Extremity Extremity Narrative: There is erythema mild swelling of the dorsum of the left foot. Sharp line of demarcation across the base of the toes to the lower edge of the ankle joint. No lymphangitic streaking. There is increased warmth. Chronic wound noted at the tip of the great toe and chronic wound at the plantar lateral aspect of the fifth MTP joint. Calf is nonswollen. Nontender. No palpable cords. Neuro oriented x3 and CN's II-XII intact bilaterally Sensorium / Orientation: alert Motor Exam: strength 5/5 throughout Psych mental status grossly normal Mood & Affect: Negative for depressed or tearful Skin no rashes or lesions noted and no wounds MDM MDM MDM Narrative Medical decision making narrative: Differential diagnosis includes but not limited to diabetic cellulitis osteomyelitis chronic osteomyelitis abscess gas gangrene. White count elevated 13.3 sed rate 60 CRP 176 glucose 262 creatinine 1.31. 90 been interpretation of the plain films of the foot is probable osteomyelitis with bony erosive changes at the fifth MTP joint. Blood cultures were obtained. There is not a big enough wound opening for me to be able to get deep wound cultures. I discussed the case with Dr. Caba who recommends admission. I spoke with the patient. He states that this is too much for him to handle and that he does not want to do this. He tells me that he is going to call his doctor who is out of town and would like me to leave the room. History & Record Review Discussion w/independent historian: Patient Additional record(s) reviewed:: Prior labs Lab Data Attestation: I reviewed the patient's lab results. Labs: Laboratory Results - last 24 hr 04/11/24 14:35 WBC 13.3 H RBC 4.52 L Hgb 12.9 L Hct 38.8 L MCV 85.8 MCH 28.5 MCHC 33.2 RDW Std Deviation 39.1 RDW Coeff of Divya 12.5 Plt Count 244 MPV 9.6 Immature Gran % (Auto) 0.500 Neut % (Auto) 80.4 H Lymph % (Auto) 10.6 L [place] % (Auto) 7.2 Eos % (Auto) 1.1 Baso % (Auto) 0.2 Absolute Neuts (auto) 10.7 H Absolute Lymphs (auto) 1.40 Nucleated RBC % 0 ESR 60 H Sodium 133 L Potassium 4.6 Chloride 98 Carbon Dioxide 29.0 Anion Gap 6 BUN 19 H Creatinine 1.31 H Estim Creat Clear Calc 62.44 Est GFR (MDRD) Af Amer 71 Est GFR (MDRD) Non-Af 58 L BUN/Creatinine Ratio 14.5 Glucose 262 H Calcium 10.4 H C-React Prot Ext Range 176.00 H Radiography Diagnostic Testing: Clinical Impression(s) from Imaging Studies Foot X-Ray 04/11/24 14:50 IMPRESSION: Possible erosion at the head of the fifth metatarsal and possible erosion of the tuft of the fifth distal phalanx. Likely overlying ulceration at the base of the fifth digit. Electronically Signed: Jack Castorena DO at 15:07 EDT , Management Discussion w/another healthcare provider: Hospitalist (Dr Erazo) and Marker Machine (Dr. Caba) Discharge Plan Triage Chief Complaint: Wound ED Provider: Sarthak Kiran Dx/Rx/DC Orders Prescriptions: No Action acetaminophen 500 mg tablet 1,000 mg PO Q6H PRN ascorbic acid (vitamin C) 500 mg tablet 500 mg PO DAILY empagliflozin 25 mg tablet 25 mg PO DAILY ferrous sulfate 325 mg (65 mg iron) tablet,delayed release (DR/EC) 325 mg PO DAILY folic acid 1 mg tablet 1 mg PO DAILY gabapentin 100 mg capsule 200 mg PO BID lidocaine [Salonpas (lidocaine)] 4 % adhesive patch,medicated 1 patch topical BID PRN magnesium oxide 400 mg magnesium tablet 400 mg PO DAILY melatonin 3 mg tablet 3 mg PO HS PRN metoprolol tartrate 25 mg tablet 25 mg PO BID rosuvastatin 20 mg tablet 20 mg PO QHS tramadol 50 mg tablet 50 mg PO BID PRN insulin aspart U-100 [Novolog FlexPen U-100 Insulin] 100 unit/mL (3 mL) insulin pen 12 unit subcut TID furosemide 20 mg tablet 20 mg PO DAILY potassium chloride 10 mEq tablet extended release 10 meq PO DAILY metformin 500 mg tablet 500 mg PO BID sertraline 100 mg tablet 100 mg PO DAILY Januvia 100 mg tablet 100 mg PO DAILY ezetimibe [Zetia] 10 mg tablet 10 mg PO DAILY aspirin [Adult Low Dose Aspirin] 81 mg tablet,delayed release (DR/EC) 81 mg PO DAILY fluticasone propionate [Allergy Relief (fluticasone)] 50 mcg/actuation spray,suspension 1 spray intranasal DAILY Rx Instructions: administer into each nostril nitroglycerin 0.4 mg tablet, sublingual 0.4 mg sublingual Q5-15M PRN Rx Instructions: do not exceed 3 doses per episode fluticasone propionate 50 MCG blister with device 2 puff IH DAILY clopidogrel 75 MG tablet 75 mg PO DAILY albuterol sulfate 1 INHALER inhaler 1 - 2 puff INHALATION Q4H PRN PRN (Reason: Wheezing) amlodipine 10 mg Tablet 10 mg PO DAILY Primary Care Provider: Vee [place] NP Referrals: Nitin Malagon MD [Non-Staff] - Print Language: Bengali
[2024-04-11 14:45] LABS: Absolute Neutrophil Count 10.7 X10^3/uL (2.0-7.7); Basophil# 0.03 X10^3/uL; Basophil% 0.2 % (0-1); Eosinophil# 0.14 X10^3/uL; Eosinophils% 1.1 % (0-5); Hematocrit 38.8 % (40-54); Hemoglobin 12.9 g/dL (13.0-16.5); Lymphocyte % 10.6 % (19-41); Mean Corp Hgb Conc 33.2 g/dL (32-36); Mean Corpuscular Hgb 28.5 pg (27.0-32.0); Mean Corpuscular Volume 85.8 fL (80-94); Mean Platelet Vol. 9.6 fl (6.2-12.0); Monocyte# 0.96 X10^3/uL; Monocyte% 7.2 % (0-10); NRBC Flagged by Analyzer 0 % (0-5); Neutrophil # 10.67 X10^3/uL (2.7-7.7); Neutrophil % 80.4 % (47-70); Platelet Count 244 K/mm3 (150-450); RBC Distribution Width CV 12.5 % (11.6-14.6); RBC Distribution Width SD 39.1 fl (35.1-43.9); Red Blood Count 4.52 M/mm3 (4.6-6.2); White Blood Count 13.3 K/mm3 (4.4-11.0)
--- NOTE | 2024-04-11 14:50 | RAD_ITS ---
EXAM: XR LEFT FOOT COMPLETE, 3 OR MORE VIEWS CLINICAL INDICATION: infection TECHNIQUE: Frontal, lateral and oblique views of the left foot. COMPARISON: No relevant prior studies available. FINDINGS: BONES/JOINTS: Possible erosion at the head of the fifth metatarsal and possible erosion of the tuft of the fifth distal phalanx. Calcaneal spurs. No acute fracture. No subluxation. Normal alignment. Preservation of the joint space. SOFT TISSUES: Soft tissue swelling. Small focus of air adjacent to the fifth metatarsal head in the soft tissues. No radiopaque foreign body. VASCULATURE: Vascular calcifications. RAD/Foot min 3 Views IMPRESSION: Possible erosion at the head of the fifth metatarsal and possible erosion of the tuft of the fifth distal phalanx. Likely overlying ulceration at the base of the fifth digit. Electronically Signed: Jack Castorena DO at 15:07 EDT ,
[2024-04-11 15:03] LABS: Anion Gap 6 (5-15); BUN 19 mg/dL (7-18); BUN/Creat Ratio 14.5 RATIO (10-20); Calcium,Total 10.4 mg/dL (8.5-10.1); Chloride 98 mmol/L (98-107); Creatinine, Serum 1.31 mg/dL (0.70-1.30); EST Glomerular Filtration Rate 58 mL/min (>60); Est Glom Filt Rate - Afr Amer 71 mL/min (>60); Estimated Creatinine Clearance 62.44 ml/min; Glucose 262 mg/dL (74-106); Potassium 4.6 mmol/L (3.5-5.1); Sodium Level 133 mmol/L (136-145)
[2024-04-11] MEDS: traMADol 50 MG Tablet PO (15:09)
[2024-04-11 16:29] LABS: Erythrocyte Sedimentation Rate 60 mm/hr (0-20)
[2024-04-11] MEDS: Piperacil/Tazobactam 4.5 GM in 0.9% Normal Saline (100mL MB+) 100 ML IV (16:45)
[2024-04-11] MEDS: Vancomycin HCl 2,000 MG in 0.9% Normal Saline (500mL Bag) 500 ML 250 MG IV (17:32)
--- NOTE | 2024-04-11 18:05 | PCM.HP.STD ---
HPI - General General Date of Admission: 04/11/24 Date of Service: 04/11/24 Chief Complaint: Left foot pain HPI Narrative ROSETTA STEWART, is a 64 M with a significant history of CAD status post triple bypass and stents; hypertension; diabetes mellitus; amputation of right great toe who presents to the emergency department with a progressively worsening pain at his right fourth. Because of pain the patient cannot walk on his right foot. Associated with symptoms is erythema and swelling of the right foot. Reportedly symptoms have been going on for a couple of days. [facility] Medical History Essential hypertension Atherosclerotic heart disease of [place] coronary artery without angina pectoris History of left heart catheterization (LHC) (~08/15/22) CAD (coronary artery disease) Hypertension History of coronary artery disease Cardiology follow-up encounter History of echocardiogram Open wound Uses crutches High cholesterol Dietary restriction Non-smoker Asthma Coronary artery disease 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 Diabetes mellitus with diabetic polyneuropathy Type 2 diabetes mellitus with foot ulcer Other specified peripheral vascular diseases Osteomyelitis PAD (peripheral artery disease) Delayed wound healing Hallux limitus of right foot Anxiety Depression Myocardial infarct Hallux limitus of right foot Type 2 diabetes mellitus with diabetic polyneuropathy Toe infection Heart disease HTN (hypertension) Diabetes mellitus CAD (coronary artery disease) DM2 (diabetes mellitus, type 2) Asthma Home Medications ?Medication ?Instructions ?Recorded ?Last Taken ?Type albuterol sulfate 90 mcg/actuation 1 - 2 puff inhalation Q4H PRN PRN 09/17/20 Unknown History aerosol inhaler Wheezing clopidogrel 75 mg tablet 75 mg PO DAILY bld thinner 09/17/20 12/10/21 History fluticasone propionate 50 2 puff IH DAILY breathing 09/17/20 11/01/21 History mcg/actuation blister powder for inhalation acetaminophen 500 mg tablet 1,000 mg PO Q6H PRN pain 08/29/22 Unknown History ascorbic acid (vitamin C) 500 mg 500 mg PO DAILY . 08/29/22 Unknown History tablet aspirin 81 mg tablet,delayed 81 mg PO DAILY thinner 08/29/22 Unknown History release (Adult Low Dose Aspirin) empagliflozin 25 mg tablet 25 mg PO DAILY . 08/29/22 Unknown History ezetimibe 10 mg tablet (Zetia) 10 mg PO DAILY . 08/29/22 Unknown History ferrous sulfate 325 mg (65 mg 325 mg PO DAILY . 08/29/22 Unknown History iron) tablet,delayed release fluticasone propionate 50 1 spray intranasal DAILY . 08/29/22 Unknown History mcg/actuation nasal spray,suspension (Allergy Relief (fluticasone)) folic acid 1 mg tablet 1 mg PO DAILY 08/29/22 Unknown History furosemide 20 mg tablet 20 mg PO DAILY . 08/29/22 Unknown History gabapentin 100 mg capsule 200 mg PO BID 08/29/22 Unknown History insulin aspart U-100 100 unit/mL 12 unit subcut TID 08/29/22 Unknown History (3 mL) subcutaneous pen (Novolog FlexPen U-100 Insulin aspart) lidocaine 4 % topical patch 1 patch topical BID PRN 08/29/22 Unknown History (Salonpas (lidocaine)) magnesium oxide 400 mg PO DAILY 08/29/22 Unknown History melatonin 3 mg tablet 3 mg PO HS PRN 08/29/22 Unknown History metformin 500 mg tablet 500 mg PO BID 08/29/22 Unknown History metoprolol tartrate 25 mg tablet 25 mg PO BID bp 08/29/22 Unknown History nitroglycerin 0.4 mg sublingual 0.4 mg sublingual Q5-15M PRN 08/29/22 Unknown History tablet potassium chloride 10 mEq 10 meq PO DAILY 08/29/22 Unknown History tablet,extended release rosuvastatin 20 mg tablet 20 mg PO QHS 08/29/22 Unknown History sertraline 100 mg tablet 100 mg PO DAILY 08/29/22 Unknown History sitagliptin phosphate 100 mg 100 mg PO DAILY 08/29/22 Unknown History tablet (Januvia) tramadol 50 mg tablet 50 mg PO BID PRN 08/29/22 Unknown History amlodipine 5 mg tablet 5 mg PO DAILY BP 04/11/24 Unknown History duloxetine 20 mg capsule,delayed 20 mg PO DAILY depression 04/11/24 Unknown History release glimepiride 4 mg tablet 8 mg PO BID DM 04/11/24 Unknown History metformin 500 mg tablet,extended 1,000 mg PO BID DM 04/11/24 Unknown History release 24 hr Allergy/AdvReac Type Severity Reaction Status Date / Time No Known Allergies Allergy Verified 04/11/24 12:48 Family History Mother Diabetes Hypertension Father Diabetes Hypertension Surgical History History of coronary artery bypass graft x 3 (~08/21/22) Status post right foot surgery S/P peripheral artery angioplasty with stent placement (~07/25/21) History of coronary artery stent placement Social History household members: none Smoking Status: Never smoker alcohol intake: never substance use type: does not use ROS ROS Narrative Pertinent positives and pertinent negatives as noted in HPI. All other systems were reviewed and are negative Vital Signs Vital Signs Vital Signs: 04/11/24 12:46 04/11/24 12:48 04/11/24 13:48 Temperature 98.2 F 98.2 F 98.8 F Temperature Source Temporal Oral Oral Pulse Rate 87 87 88 Respiratory Rate 16 16 16 Blood Pressure 135/71 H 135/71 H 172/64 H Blood Pressure Mean 92 92 100 Pulse Ox 96 96 97 Oxygen Delivery Method Room Air Room Air Room Air 04/11/24 14:48 04/11/24 15:00 04/11/24 16:00 Temperature 98.8 F 98.8 F 98.0 F Temperature Source Oral Oral Oral Pulse Rate 78 70 84 Respiratory Rate 18 18 18 Blood Pressure 145/74 H 135/84 H 146/86 H Blood Pressure Mean 97 101 106 Pulse Ox 97 97 94 Oxygen Delivery Method Room Air Room Air Room Air Weight Weight: 93.7 kg Body Mass Index (BMI) 31.4 Physical Exam Narrative Physical exam: General: Well-nourished, well-developed. Head: Normocephalic, atraumatic, no tenderness Eyes: Vision is grossly intact. EOMI ENT, no trauma, moist mucous membranes, no rhinorrhea Neck: Nontender, No thyromegaly. CVS: Regular rate and rhythm. S1-S2 present. No murmur, gallop or rub. Respiratory : clear to auscultation bilaterally, chest wall nontender Abdomen: Soft, nontender, nondistended, normal bowel sounds, no masses : Deferred Back: Nontender, no CVA tenderness, no midline spinal tenderness, deformities, step-offs Extremities: Amputated right great toe. Erythema of lateral side of right foot. Scabbed left great toe. Scabbed area at metatarsalphalangeal joints of fifth toe of the right foot. Skin: Normal color, no trauma, abrasions Neuro: Alert, oriented, cranial nerves II through XII grossly intact. Psychiatry: Appears depressed Results Lab / Micro Data 04/11/24 14:35 04/11/24 14:35 Labs: Laboratory Results - last 24 hr 04/11/24 14:35: WBC 13.3 H, RBC 4.52 L, Hgb 12.9 L, Hct 38.8 L, MCV 85.8, MCH 28.5, MCHC 33.2, RDW Std Deviation 39.1, RDW Coeff of Divya 12.5, Plt Count 244, MPV 9.6, Immature Gran % (Auto) 0.500, Neut % (Auto) 80.4 H, Lymph % (Auto) 10.6 L, [place] % (Auto) 7.2, Eos % (Auto) 1.1, Baso % (Auto) 0.2, Absolute Neuts (auto) 10.7 H, Absolute Lymphs (auto) 1.40, Nucleated RBC % 0, ESR 60 H, Sodium 133 L, Potassium 4.6, Chloride 98, Carbon Dioxide 29.0, Anion Gap 6, BUN 19 H, Creatinine 1.31 H, Estim Creat Clear Calc 62.44, Est GFR (MDRD) Af Amer 71, Est GFR (MDRD) Non-Af 58 L, BUN/Creatinine Ratio 14.5, Glucose 262 H, Calcium 10.4 H, C-React Prot Ext Range 176.00 H Imaging Radiology Impression Foot X-Ray 04/11/24 14:50 IMPRESSION: Possible erosion at the head of the fifth metatarsal and possible erosion of the tuft of the fifth distal phalanx. Likely overlying ulceration at the base of the fifth digit. Electronically Signed: Jack Castorena DO at 15:07 EDT , Assessment & Plan Assessment/Plan (1) Acute osteomyelitis of metatarsal bone of left foot: (2) History of coronary artery bypass graft x 3: (3) Essential hypertension: (4) Diabetes mellitus: QUALIFIERS: Diabetes mellitus type: type 2 Diabetes mellitus halfway insulin use: with superintendent terminal use Diabetes mellitus complication status: with neurologic complications Diabetes mellitus complication detail: with polyneuropathy Qualified Code(s): E11.42 - Type 2 diabetes mellitus with diabetic polyneuropathy; Z79.4 - superintendent terminal (current) use of insulin PLAN: Plan I discussed case with podiatry. Patient received vancomycin and Zosyn at the emergency department. Vancomycin, cefepime and Flagyl ordered. As needed morphine and oxycodone ordered. Bowel and antiemetic protocol in place. ESR and CRP ordered. Blood glucose now within goal. Basal insulin adjusted in the setting of patient being n.p.o. for possible procedure in a.m. Correction scale insulin ordered. Hold metformin. Glimepiride continued. Blood pressure Within goal. Home blood pressure medication continued. Trend blood pressures. Advance care planning: Discussed with patient and family advanced directives as well as CODE STATUS. Explained various CODE STATUS: FULL CODE, DNR CCA, DNR CCA with no intubation, and DNR CC- and what each meant. Patient elected to be a full code with CPR and intubation if warranted. Order was placed. His surrogate decision maker is his mother. Time spent on discussion 16 minutes. Time spent in the patient's overall evaluation,decision-making process, review of diagnostic data, adjustment of management, discussion with other providers, nursing and ancillary staff involved in patient's care documentation, 72 minutes. Charges/Coding Visit Charges Inpatient E&M: 61589 Init Hosp L3 Procedures Hospitalists Procedures: 58979 Advncd Care Plan 30 Min
--- NOTE | 2024-04-11 18:52 | PCM.RX.CS ---
Consult Antibiotic Management Pharmacy has been consulted to manage selected antibiotic: Vancomycin Type of Intervention Type of Consult: New start Suspected Infection Suspected Infection: Osteomyelitis Labs Labs: Sodium 133 mmol/L (136-145) L 04/11/24 14:35 Potassium 4.6 mmol/L (3.5-5.1) 04/11/24 14:35 Chloride 98 mmol/L (98-107) 04/11/24 14:35 Carbon Dioxide 29.0 mmol/L (21.0-32.0) 04/11/24 14:35 Anion Gap 6 (5-15) 04/11/24 14:35 BUN 19 mg/dL (7-18) H 04/11/24 14:35 Creatinine 1.31 mg/dL (0.70-1.30) H 04/11/24 14:35 Est GFR (MDRD) Af Amer 71 mL/min (>60) 04/11/24 14:35 Est GFR (MDRD) Non-Af 58 mL/min (>60) L 04/11/24 14:35 BUN/Creatinine Ratio 14.5 RATIO (10-20) 04/11/24 14:35 Glucose 262 mg/dL (74-106) H 04/11/24 14:35 Goal Trough Goal Trough: 15-20 mcg/mL Pharmacy Plan for Drug Dosing Pharmacy Plan for Drug Dosing: NEW IV VANCOMYCIN Consulting Physician: Dr. Erazo Indication: L- foot osteo Goal Trough: 15-20 SrCr: 1.31 CrCl: 62 ml/min Comments: Patient had loading dose of 2000mg IV x1 in ED 04/11/24 @1732 Vancomycin Dose: 1000mg IV Q12hr to start 04/12/24 @0500 Pending Level: 04/13/24 @0430, prior to 4th total dose of regimen Pharmacy Service will continue to monitor and adjust dosing as required.
--- NOTE | 2024-04-11 19:04 | NURSING ---
pt states i am not going to answer that question when asked about suicidal/thoughts of killing himself. Charge Nurse aware, suicide precautions initiated.
--- NOTE | 2024-04-11 19:05 | NURSING ---
Technician Terminal And Repeater notified that per Primary RN pt refusing to answer suicide admission questions but stating that he had requested to talk to someone regarding suicidal ideations while in the ER but was told there was not a social security assessor available to talk with him. Discussed with household coordinator that based on conversation primary RN had with patient felt required suicidal precautions to be initiated, requesting suicidal sitter. LICENSED TAX CONSULTANT requested to sit with patient at this time and primary RN was initiating precautions.
--- NOTE | 2024-04-11 19:05 | NURSING ---
inquired about roz coming to see pt pt replies 'i would rather a psych person come and see me
--- NOTE | 2024-04-11 19:07 | NURSING ---
nursing emergency crew supervisor notified per Charge Nurse of suicide precautions being initiated
--- NOTE | 2024-04-11 19:15 | NURSING ---
conversation had with powerhouse engineer aware school social worker would be up to talk with pt. RESEARCH INSTRUMENTATION TECHNICIAN remains as suicide sitter at this time
--- NOTE | 2024-04-11 19:31 | PCM.CONS.GEN ---
Assessment & Plan Assessment/Plan (1) Acute osteomyelitis of left foot: (2) Non-pressure chronic ulcer of other part of left foot with necrosis of bone: PLAN: Plan Evaluation performed. Reviewed diagnostic data. Reviewed labs and left foot xrays. Discussed with patient. Given the findings surgical intervention was discussed - debridement of all nonviable, infected and necrotic soft tissue and bone with 5th toe and metatarsal amputation - reviewed procedure, possible benefits vs risks, goals and expectations - he would like to proceed with surgical intervention - he has been through this before on right foot He is on IV antibiotics - Vanc and Zosyn, a deep wound culture was obtained and sent to microbiology No weightbearing left foot Wound care left foot - betadine soln and gauze dressing - keep clean, dry and intact at this time NPO after midnight, OR tomorrow morning Hx of PAD - ordered new LEAS and arterial duplex studies for further evaluation Podiatry will continue to follow, appreciate consultation HPI Consult Data Date of Consult: 04/11/24 HPI Narrative Reason for Consultation: Left foot infection HPI Narrative: ROSETTA STEWART, is a 64 M who presents with hx of many medical problems including diabetes, previous right partial 1st ray amptuation now has wounds left foot, sub 5th metatarsal head and distal 1st toe - he relates he was going to a newspaper photojournalist in [place] for debridements - states he was told everything was good but has not gone back for at least 3 months - relates it was to far to drive. He has developed redness and swelling to his left foot and he relates he has pain to his left foot when walking. He presented to ER and has been admitted for further management. WBC, ESR and CRP elevated, glucose 262, left foot xrays consistent with infection and osteomyelitis 5th metatarsal head [facility] Medical History Essential hypertension Atherosclerotic heart disease of [place] coronary artery without angina pectoris History of left heart catheterization (LHC) (~08/15/22) CAD (coronary artery disease) Hypertension History of coronary artery disease Cardiology follow-up encounter History of echocardiogram Open wound Uses crutches High cholesterol Dietary restriction Non-smoker Asthma Coronary artery disease 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 Diabetes mellitus with diabetic polyneuropathy Type 2 diabetes mellitus with foot ulcer Other specified peripheral vascular diseases Osteomyelitis PAD (peripheral artery disease) Delayed wound healing Hallux limitus of right foot Anxiety Depression Myocardial infarct Hallux limitus of right foot Type 2 diabetes mellitus with diabetic polyneuropathy Toe infection Heart disease HTN (hypertension) Diabetes mellitus CAD (coronary artery disease) DM2 (diabetes mellitus, type 2) Asthma Home Medications ?Medication ?Instructions ?Recorded ?Last Taken ?Type albuterol sulfate 90 mcg/actuation 1 - 2 puff inhalation Q4H PRN PRN 09/17/20 Unknown History aerosol inhaler Wheezing clopidogrel 75 mg tablet 75 mg PO DAILY bld thinner 09/17/20 12/10/21 History fluticasone propionate 50 2 puff IH DAILY breathing 09/17/20 11/01/21 History mcg/actuation blister powder for inhalation acetaminophen 500 mg tablet 1,000 mg PO Q6H PRN 08/29/22 Unknown History ascorbic acid (vitamin C) 500 mg 500 mg PO DAILY 08/29/22 Unknown History tablet aspirin 81 mg tablet,delayed 81 mg PO DAILY thinner 08/29/22 Unknown History release (Adult Low Dose Aspirin) empagliflozin 25 mg tablet 25 mg PO DAILY 08/29/22 Unknown History ezetimibe 10 mg tablet (Zetia) 10 mg PO DAILY 08/29/22 Unknown History ferrous sulfate 325 mg (65 mg 325 mg PO DAILY 08/29/22 Unknown History iron) tablet,delayed release fluticasone propionate 50 1 spray intranasal DAILY 08/29/22 Unknown History mcg/actuation nasal spray,suspension (Allergy Relief (fluticasone)) folic acid 1 mg tablet 1 mg PO DAILY 08/29/22 Unknown History furosemide 20 mg tablet 20 mg PO DAILY 08/29/22 Unknown History gabapentin 100 mg capsule 200 mg PO BID 08/29/22 Unknown History insulin aspart U-100 100 unit/mL 12 unit subcut TID 08/29/22 Unknown History (3 mL) subcutaneous pen (Novolog FlexPen U-100 Insulin aspart) lidocaine 4 % topical patch 1 patch topical BID PRN 08/29/22 Unknown History (Salonpas (lidocaine)) magnesium oxide 400 mg PO DAILY 08/29/22 Unknown History melatonin 3 mg tablet 3 mg PO HS PRN 08/29/22 Unknown History metformin 500 mg tablet 500 mg PO BID 08/29/22 Unknown History metoprolol tartrate 25 mg tablet 25 mg PO BID bp 08/29/22 Unknown History nitroglycerin 0.4 mg sublingual 0.4 mg sublingual Q5-15M PRN 08/29/22 Unknown History tablet potassium chloride 10 mEq 10 meq PO DAILY 08/29/22 Unknown History tablet,extended release rosuvastatin 20 mg tablet 20 mg PO QHS 08/29/22 Unknown History sertraline 100 mg tablet 100 mg PO DAILY 08/29/22 Unknown History sitagliptin phosphate 100 mg 100 mg PO DAILY 08/29/22 Unknown History tablet (Januvia) tramadol 50 mg tablet 50 mg PO BID PRN 08/29/22 Unknown History amlodipine 5 mg tablet 5 mg PO DAILY BP 04/11/24 Unknown History duloxetine 20 mg capsule,delayed 20 mg PO DAILY depression 04/11/24 Unknown History release glimepiride 4 mg tablet 8 mg PO BID DM 04/11/24 Unknown History metformin 500 mg tablet,extended 1,000 mg PO BID DM 04/11/24 Unknown History release 24 hr Allergy/AdvReac Type Severity Reaction Status Date / Time No Known Allergies Allergy Verified 04/11/24 12:48 Family History Mother Diabetes Hypertension Father Diabetes Hypertension Surgical History History of coronary artery bypass graft x 3 (~08/21/22) Status post right foot surgery S/P peripheral artery angioplasty with stent placement (~07/25/21) History of coronary artery stent placement Social History household members: none Smoking Status: Never smoker alcohol intake: never substance use type: does not use Physical Exam Const alert, oriented x3 and no apparent distress Constitutional Narrative: Left foot with open ulceration sub 5th metatarsal head with surrounding callus but ulceration probes down to bone of the 5th metatarsal head, there is some drainage c/w infection and there is erythema, edema to the foot much more at level of the 5th MTPJ, whole foot has edema and cellulitis is to the forefoot extending to midfoot, there is also ulceration to the distal left 1st toe down to subcutaneous tissue layer and does not appear infected at this time, no open wounds to the right foot, CFT < seconds to all toes bilateral, sensation is decreased bilateral foot c/w chronic peripheral neuropathy, absent right 1st toe which is healed, contracture of lesser toes is noted, he relates there is some pain to the 5th metatarsal head left foot, no evidence of acute ischemia bilateral, no blistering, no fluctuance, no crepitus, no maloder bilateral foot Lab / Micro Data 04/11/24 14:35 04/11/24 14:35 Labs: Laboratory Results - last 24 hr 04/11/24 14:35: WBC 13.3 H, RBC 4.52 L, Hgb 12.9 L, Hct 38.8 L, MCV 85.8, MCH 28.5, MCHC 33.2, RDW Std Deviation 39.1, RDW Coeff of Divya 12.5, Plt Count 244, MPV 9.6, Immature Gran % (Auto) 0.500, Neut % (Auto) 80.4 H, Lymph % (Auto) 10.6 L, Mccreary % (Auto) 7.2, Eos % (Auto) 1.1, Baso % (Auto) 0.2, Absolute Neuts (auto) 10.7 H, Absolute Lymphs (auto) 1.40, Nucleated RBC % 0, ESR 60 H, Sodium 133 L, Potassium 4.6, Chloride 98, Carbon Dioxide 29.0, Anion Gap 6, BUN 19 H, Creatinine 1.31 H, Estim Creat Clear Calc 62.44, Est GFR (MDRD) Af Amer 71, Est GFR (MDRD) Non-Af 58 L, BUN/Creatinine Ratio 14.5, Glucose 262 H, Calcium 10.4 H, C-React Prot Ext Range 176.00 H Imaging Radiology Impression Foot X-Ray 04/11/24 14:50 IMPRESSION: Possible erosion at the head of the fifth metatarsal and possible erosion of the tuft of the fifth distal phalanx. Likely overlying ulceration at the base of the fifth digit. Electronically Signed: Jack Castorena DO at 15:07 EDT ,
--- NOTE | 2024-04-11 19:45 | ADUL_ITS ---
Reason For Study: PVD / Lt Foot Ulcer Left Velocities Ext Iliac Artery, dist = 127.5 cm./sec. Common Femoral Artery, mid = 122.3 cm./sec. Supf. Femoral Artery, prox = 99.0 cm./sec. Supf. Femoral Artery, mid = 95.3 cm./sec. Supf. Femoral Artery, dist = 71.6 cm./sec. Profunda Femoral Artery = 80.9 cm./sec. Popliteal Artery, mid = 117.3 cm./sec. Post. Tibial Artery, prox = 77.1 cm./sec. Post Tibial Artery, mid = 95.3 cm./sec. Post Tibial Artery, dist. = 29.6 cm./sec. Peroneal Artery, prox = 130.1 cm./sec. Peroneal Artery, mid = 86.0 cm./sec. Peroneal Artery,dist. = 73.1 cm./sec. Ant.Tibial Artery, prox = 62.5 cm./sec. Ant Tibial Artery, mid = 14.4 cm./sec. Ant. Tibial Artery, distal = 14.4 cm./sec. Procedure The exam was diagnostic. Exam performed portable in patient room. /US Art Duplex Unilat Lower Ext Interpretation Summary Patent left SFA/popliteal stent with no stenosis. Distal tibio-peroneal vessels with conversion to monophasic waveforms indicating presence of disease. Ordering Physician: Ty Caba Referring Physician: Erika Montana Performed By: Humphrey Abreu RVT
--- NOTE | 2024-04-11 19:45 | ART_ITS ---
Reason For Study: Ulcer Procedure A bilateral lower extremity continuous wave Doppler with analog waveform analysis,segmental pressures,and ankle brachial indexes without exercise. Left Segmental Pressures Left brachial= 156mmHg. Left calf = 191mmHg. Left posterior tibial artery = >254mmHg. Left dorsalis pedis artery = 92mmHg. The left posterior tibial artery waveforms are monophasic. The left dorsalis pedis waveforms are monophasic. Right Segmental Pressures Right brachial= 169mmHg. Right posterior tibial artery = 206mmHg. Right dorsalis pedis artery = >254mmHg. The right posterior tibial artery waveforms are biphasic. The right dorsalis pedis waveforms are biphasic. Indices The right ankle brachial index by the posterior tibial artery is 1.22. The right ankle brachial index by the dorsalis pedis is N/C. The left ankle brachial index by the posterior tibial artery is N/C. The left ankle brachial index by the dorsalis pedis is 0.54. VL/Lower Ext Art Exam w/o Exercis Interpretation Summary Right RACHEL 1.22, normal though may be artificially elevated. Doppler/PVR wavefor ms of the right leg mildly diminished. Left RACHEL 0.54, moderate arterial insufficiency. Doppler/PVR waveforms reveal in frapopliteal disease Ordering Physician: Ty Caba Referring Physician: Erika Montana Performed By: Humphrey Abreu RVT
--- NOTE | 2024-04-11 19:50 | CASEMGMT ---
Social Work: Date of referral: 04/11/2024 Referred by [facility] 3 charge nurse Reason for referral: To assess for suicidal ideation/patient requested to talk with a social services counselor. lawn care worker made contact with patient who agreed to social work visit. Patient previously unwilling to answer whether or not he had suicidal ideation, therefore social work consult was requested. Patient admitted to feeling depressed over complications related to diabetes. Patient has had a previous toe amputation on right foot, presented to the ED on this date for an unhealed blister on left toe thinking it would be treated and patient would be able to go home and was told he may lose part of his leg. Patient is scheduled for a toe amputation on 04/12/24 which patient wasn't expecting. Patient stated he's cried and as much as he's tried to stay on top of things, patient doesn't feel like it's doing any good. Patient reported he's been working out at [employer]. Patient reported he has an 86 year old mother who lives in [place] that he's supposed to be helping take care of. Patient reported just being in shock and described the ED earlier as chaotic. Patient reported although he's feeling depressed about the amputation, he feels better being on the floor he's currently on and feels calmer. Patient denied any thoughts of wanting to kill himself, denies having any plans to kill himself and denies any access to firearms. Patient denied being involved with counseling at this time. lawn care worker offered to bring client resources for counseling however patient declined. Patient did report feeling better after having gotten to talk with social services counselor and reported he was going to try and sleep. No further information requested or needed from patient at this time. lawn care worker provided charge nurse with the update that patient denied any suicidal ideation. Jazmin Reyna, TIRE MOLD TESTER, TEST CONDUCTOR
[2024-04-11 21:03] LABS: Hemoglobin A1c 7.9 % (3.8-5.6)
[2024-04-11] MEDS: Insulin Lispro 100 UNIT/ML INSULN.PEN SC (21:19)
[2024-04-11] MEDS: Morphine 4 MG/ML Syringe IV (21:20)
[2024-04-11 22:23] LABS: M R Staph aureus DNA By PCR Negative (Negative); Probe Check PASS; Specimen Processing Control PASS; Staph aureus DNA By PCR POSITIVE (Negative)
[2024-04-11] MEDS: metroNIDAZOLE 500 MG/100 ML BAG 100 MG IV (22:38)
[2024-04-11] MEDS: Acetaminophen 500 MG Tablet 1000 MG PO (22:57)
[2024-04-11 23:01] LABS: Bedside Glucose 251 mg/dL (74-106)
[2024-04-11] MEDS: Cefepime HCl 2 GM in 0.9% Normal Saline (100mL MB+) 100 ML IV (23:53)
[2024-04-11] MEDS: oxyCODONE 5 MG Tablet PO (23:57)
[2024-04-12] VITALS (20 sets, daily range): BP systolic 118–204; BP diastolic 65–100; PULSE 74–102; RESP 16–18; TEMP 36.1–37; O2SAT 93–98; BMI 30.7
[2024-04-12 01:56] LABS: Bedside Glucose 242 mg/dL (74-106)
[2024-04-12] MEDS: Vancomycin IV 1,000 MG/200 ML BAG 200 MG IV ×2 (04:22→16:46)
[2024-04-12] MEDS: Cefepime HCl 2 GM in 0.9% Normal Saline (100mL MB+) 100 ML IV (05:41)
--- NOTE | 2024-04-12 05:55 | EKG12_ITS ---
Test Reason : PRE-OP Blood Pressure : / mmHG Vent. Rate : 090 BPM Atrial Rate : 090 BPM P-R Int : 138 ms QRS Dur : 078 ms QT Int : 358 ms P-R-T Axes : 015 -08 -88 degrees QTc Int : 437 ms Sinus rhythm with Premature atrial complexes Inferior infarct (cited on or before 14-AUG-2022) Abnormal ECG When compared with ECG of 15-AUG-2022 05:46, Premature atrial complexes are now Present Nonspecific T wave abnormality has replaced inverted T waves in Inferior leads Confirmed by AZAEL MARCUS, JESSICA ([id number]), book or script editor HERNAN JACINTO ([id number]) on 04/13/2024 10:32:54 AM Referred By: KINCAID Confirmed By:JESSICA ADDISON MD
[2024-04-12] MEDS: metroNIDAZOLE 500 MG/100 ML BAG 100 MG IV (06:24)
[2024-04-12] MEDS: Morphine 4 MG/ML Syringe IV ×2 (06:31→17:37)
[2024-04-12 06:37] LABS: Absolute Lymphocyte Count 1.43 X10^3/uL (0.83-4.51); Absolute Neutrophil Count 8.7 X10^3/uL (2.0-7.7); Basophil# 0.03 X10^3/uL; Basophil% 0.3 % (0-1); Eosinophil# 0.24 X10^3/uL; Eosinophils% 2.1 % (0-5); Hematocrit 38.2 % (40-54); Hemoglobin 12.4 g/dL (13.0-16.5); Lymphocyte # 1.43 X10^3/ul (0.83-4.51); Lymphocyte % 12.5 % (19-41); Mean Corp Hgb Conc 32.5 g/dL (32-36); Mean Corpuscular Hgb 28.1 pg (27.0-32.0); Mean Corpuscular Volume 86.6 fL (80-94); Mean Platelet Vol. 9.7 fl (6.2-12.0); Monocyte# 0.99 X10^3/uL; Monocyte% 8.6 % (0-10); NRBC Flagged by Analyzer 0 % (0-5); Neutrophil # 8.69 X10^3/uL (2.7-7.7); Neutrophil % 75.6 % (47-70); Platelet Count 240 K/mm3 (150-450); RBC Distribution Width CV 12.5 % (11.6-14.6); RBC Distribution Width SD 39.8 fl (35.1-43.9); Red Blood Count 4.41 M/mm3 (4.6-6.2); White Blood Count 11.5 K/mm3 (4.4-11.0)
[2024-04-12] MEDS: Budesonide Respules 0.5 MG/2 ML AMPUL.NEB. 2 MG INHALATION (06:59)
[2024-04-12 07:01] LABS: Anion Gap 9 (5-15); BUN 15 mg/dL (7-18); Calcium,Total 9.5 mg/dL (8.5-10.1); Chloride 100 mmol/L (98-107); Creatinine, Serum 1.07 mg/dL (0.70-1.30); EST Glomerular Filtration Rate 74 mL/min (>60); Est Glom Filt Rate - Afr Amer 89 mL/min (>60); Glucose 234 mg/dL (74-106); Potassium 3.8 mmol/L (3.5-5.1); Sodium Level 132 mmol/L (136-145)
[2024-04-12 07:06] LABS: Bedside Glucose 265 mg/dL (74-106)
[2024-04-12] MEDS: Metoprolol Tartrate 25 MG Tablet PO ×2 (07:38→19:59)
[2024-04-12] MEDS: Acetaminophen 500 MG Tablet 1000 MG PO ×3 (07:39→19:59)
[2024-04-12] MEDS: amLODIPine 5 MG Tablet PO (07:39)
[2024-04-12] MEDS: DULoxetine Hcl 20 MG Capsule PO (07:39)
[2024-04-12] MEDS: oxyCODONE 5 MG Tablet PO ×4 (07:39→20:53)
--- NOTE | 2024-04-12 09:57 | PCM.PRE.AN2 ---
ASA Classification* ASA Classification ASA Classification: 3 Assessment & Plan Anesthesia* Anesthesia Assessment Anesthesia Assessment: Discussed sedation and/or anesthesia options, risks, benefits, and alternatives with patient/parents/legal guardian/POA. Questions invited. The patient/parents/legal guardian/POA seems to understand and agrees to proceed with anesthesia plan. Reviewed the physical assessment, medical history, allergy history and patient home medications list prior to surgery/procedure/anesthetic and documented any changes. Performed airway and anesthesia risk assessments. Anesthesia Type Anesthesia Type: MAC History Source History Obtained from:: Patient and Chart Anesthesia Focused Assessment* Temperature: 98.1 F Pulse Rate: 76 Blood Pressure: 153/85 Respiratory Rate: 18 Pulse Ox: 95 Oxygen Delivery Method: Room Air Airway Assessment Mouth opens: 2 cm Mallampati Score: IV Teeth Condition: Caps/Crowns (couple of crowns are tight ) Neck Range of motion (ROM): Limited ROM (slight decrease in extension) Pertinent Findings EKG Pertinent Findings:: April 12, 2024. Normal sinus rhythm with premature atrial complexes. Inferior infarct. Focused Labs Anesthesia Preop lab: CBC WBC 11.5 K/mm3 (4.4-11.0) H 04/12/24 05:40 RBC 4.41 M/mm3 (4.6-6.2) L 04/12/24 05:40 Hgb 12.4 g/dL (13.0-16.5) L 04/12/24 05:40 Hct 38.2 % (40-54) L 04/12/24 05:40 Plt Count 240 K/mm3 (150-450) 04/12/24 05:40 CHEMISTRY Potassium 3.8 mmol/L (3.5-5.1) 04/12/24 05:40 Sodium 132 mmol/L (136-145) L 04/12/24 05:40 Magnesium 1.6 mg/dL (1.6-2.6) 11/01/21 12:50 Phosphorus 3.0 mg/dL (2.5-4.9) 09/25/21 04:59 BUN 15 mg/dL (7-18) 04/12/24 05:40 Creatinine 1.07 mg/dL (0.70-1.30) 04/12/24 05:40 Glucose 234 mg/dL (74-106) H 04/12/24 05:40 POC Glucose 265 mg/dL (74-106) H 04/12/24 06:13 COAG Pre-Assessment Diagnosis/Proposed Procedure Planned Operative Procedure(s): Left foot debridement of all nonviable infected and necrotic soft tissue Anesthesia History 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 When Was Last Pacemaker Check QUESTION #4 FULL TEXT: You/Your Family Experience fever (hyperthermia) with Anesthesia Last Oral Intake Last Oral intake: Last Oral Intake NPO since 00:00 04/12/24 09:29 Meds taken in AM with sips of Yes 04/12/24 09:29 water? Meds patient instructed to tylenol, oxy, metoprolol, 04/12/24 09:29 take am of surgery amlodipine, cymbalta PONV PONV - art museum aide: PONV - art museum aide Female HX of Motion Sickness HX of N/V After Surgery Non-Smoker Duration of Surgery greater than 60 minutes Number of Risk Factors PONV Score Height & Weight Height & Weight: Anesthesia: Height & Weight Height 5 ft 8 in 04/12/24 09:29 Weight: 91.8 kg 04/12/24 09:29 Body Mass Index (BMI) 30.7 04/12/24 09:29 Respiratory Assessment Respiratory Assessment - art museum aide: Respiratory Tract Infection Hx - art museum aide Hx Respiratory Tract Infection No 04/11/24 20:47 STOP Sleep Apnea STOP Sleep Apnea - art museum aide: STOP Sleep Apnea - art museum aide Hx Hypertension Yes 04/11/24 19:00 Hx Sleep Apnea No 04/11/24 19:00 CPAP BIPAP Do you snore loudly (louder No 04/11/24 19:00 than talking or can be heard Do you often feel tired/ No 04/11/24 19:00 fatigued/ sleepy during daytime? Has anyone observed you stop No 04/11/24 19:00 breathing during sleep? STOP Results Negative 04/11/24 19:00 QUESTION #5 FULL TEXT : Do you snore loudly (louder than talking or can be heard through closed doors)? 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 Specify any problems Hx of Preganancy in last 3 N/A 04/11/24 19:00 Months Nurse Filling Out Transfusion RKARPER 04/11/24 19:00 & Questions: Date: 04/11/24 04/11/24 19:00 Time: 19:03 04/11/24 19:00 Patient unable to answer at this time (ie. confused, unrespo /Reproduction History /Reproductive History - art museum aide: /Reproductive Hx- art museum aide Hx Now No 04/11/24 20:47 Gestational Age (in weeks): EDC: Hx Hx Para Hx Section SAB No 04/11/24 20:47 Active Medications Active Medications: Current Medications Generic Name Dose Route Start Last Admin Trade Name Freq PRN Reason Stop Dose Admin Acetaminophen 1,000 mg 04/11/24 22:14 04/12/24 07:39 Acetaminophen 500 Mg Tablet PO 1,000 mg Q6H PRN PRN Administration pain 1-10 Albuterol Sulfate 2.5 mg 04/11/24 22:18 Albuterol 2.5 Mg/3 Ml Vial.Neb. INHALATION Q2H PRN PRN sob/wheezing Amlodipine Besylate 5 mg 04/12/24 10:00 04/12/24 07:39 Amlodipine 5 Mg Tablet PO 5 mg DAILY MARTINA Administration Protocol Budesonide 2 mg 04/12/24 06:00 04/12/24 06:59 Budesonide Respules 0.5 Mg/2 Ml Ampul.Neb. INHALATION 2 mg Q12H.RT MARTINA Administration Duloxetine HCl 20 mg 04/12/24 10:00 04/12/24 07:39 Duloxetine Hcl 20 Mg Capsule PO 20 mg DAILY MARTINA Administration Ferrous Sulfate 325 mg 04/12/24 08:00 04/12/24 07:29 Ferrous Sulfate 325 Mg Tablet PO Not Given DAILYCM MARTINA Fluticasone Propionate 1 spray 04/12/24 10:00 04/12/24 08:36 Fluticasone 0.05% 1 [place] Nasal.Sry NASAL Not Given DAILY MARTINA Glimepiride 8 mg 04/12/24 08:00 04/12/24 07:29 Glimepiride 4 Mg Tablet PO Not Given BIDCM [facility] Glucagon 1 mg 04/11/24 18:40 Glucagon 1 Mg/Ml Syringe IM X1 PRN Hypoglycemia Protocol Vancomycin IV-PHARMACY TO DOSE 500 mls @ 250 mls/hr 04/11/24 18:40 1 each/ Sodium Chloride IV PRN PRN Rx to Dose Protocol Dextrose 250 mls @ 0 mls/hr 04/11/24 18:40 Dextrose 10%-Water IV .Q0M PRN HYPOGLYCEMIA Protocol As Directed Vancomycin HCl 1,000 mg in 200 mls @ 200 mls/hr 04/12/24 05:00 04/12/24 05:40 Vancomycin IV Infused Q12H MARTINA Infusion Sodium Chloride 250 mls @ 15 mls/hr 04/11/24 18:59 IV .[id number] PRN Additional IVPB Infusion Sodium Chloride 250 mls @ 15 mls/hr 04/11/24 18:59 IV .[id number] PRN Saline Flush Levofloxacin 750 mg in 150 mls @ 100 mls/hr 04/12/24 10:00 Levaquin Iv IV Q24 [facility] Insulin Human Lispro 0 unit 04/11/24 18:40 04/12/24 06:14 Insulin Lispro 100 Unit/Ml Insuln.Pen SC Not Given Q6 [facility] Protocol Melatonin 3 mg 04/11/24 18:40 Melatonin 3 Mg Tablet PO QHS PRN PRN INSOMNIA Metoprolol Tartrate 25 mg 04/12/24 10:00 04/12/24 07:38 Metoprolol Tartrate 25 Mg Tablet PO 25 mg BID MARTINA Administration Protocol Morphine Sulfate 4 mg 04/11/24 18:40 04/12/24 06:31 Morphine 4 Mg/Ml Syringe IV 4 mg Q4H PRN PRN Administration Pain Score 6-10 Ondansetron HCl 4 mg 04/11/24 18:40 Ondansetron 4 Mg/2 Ml Vial IV Q8H PRN PRN NAUSEA/VOMITING Oxycodone HCl 5 mg 04/11/24 18:40 04/12/24 07:39 Oxycodone 5 Mg Tablet PO 5 mg Q4H PRN PRN Administration Pain Score 4-5 Sodium Chloride 10 - 40 ml 04/11/24 18:59 0.9% Saline Lock 10 Ml Syringe IV UD PRN SALINE FLUSH Vancomycin Protocol 1 lab 04/13/24 02:30 Vancomycin Trough/Random Due MC 04/13/24 06:30 DAILY [facility] PFSH Medical History Essential hypertension Atherosclerotic heart disease of chilkoot coronary artery without angina pectoris History of left heart catheterization (LHC) (~08/15/22) CAD (coronary artery disease) Hypertension History of coronary artery disease Cardiology follow-up encounter History of echocardiogram Open wound Uses crutches High cholesterol Dietary restriction Non-smoker Asthma Coronary artery disease 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 Diabetes mellitus with diabetic polyneuropathy Type 2 diabetes mellitus with foot ulcer Other specified peripheral vascular diseases Osteomyelitis PAD (peripheral artery disease) Delayed wound healing Hallux limitus of right foot Anxiety Depression Myocardial infarct Hallux limitus of right foot Type 2 diabetes mellitus with diabetic polyneuropathy Toe infection Heart disease HTN (hypertension) Diabetes mellitus CAD (coronary artery disease) DM2 (diabetes mellitus, type 2) Asthma Home Medications ?Medication ?Instructions ?Recorded ?Last Taken ?Type albuterol sulfate 90 mcg/actuation 1 - 2 puff inhalation Q4H PRN PRN 09/17/20 Unknown History aerosol inhaler Wheezing clopidogrel 75 mg tablet 75 mg PO DAILY bld thinner 09/17/20 12/10/21 History fluticasone propionate 50 2 puff IH DAILY breathing 09/17/20 11/01/21 History mcg/actuation blister powder for inhalation acetaminophen 500 mg tablet 1,000 mg PO Q6H PRN pain 08/29/22 Unknown History ascorbic acid (vitamin C) 500 mg 500 mg PO DAILY . 08/29/22 Unknown History tablet aspirin 81 mg tablet,delayed 81 mg PO DAILY thinner 08/29/22 Unknown History release (Adult Low Dose Aspirin) empagliflozin 25 mg tablet 25 mg PO DAILY . 08/29/22 Unknown History ezetimibe 10 mg tablet (Zetia) 10 mg PO DAILY . 08/29/22 Unknown History ferrous sulfate 325 mg (65 mg 325 mg PO DAILY . 08/29/22 Unknown History iron) tablet,delayed release fluticasone propionate 50 1 spray intranasal DAILY . 08/29/22 Unknown History mcg/actuation nasal spray,suspension (Allergy Relief (fluticasone)) folic acid 1 mg tablet 1 mg PO DAILY 08/29/22 Unknown History furosemide 20 mg tablet 20 mg PO DAILY . 08/29/22 Unknown History gabapentin 100 mg capsule 200 mg PO BID 08/29/22 Unknown History insulin aspart U-100 100 unit/mL 12 unit subcut TID 08/29/22 Unknown History (3 mL) subcutaneous pen (Novolog FlexPen U-100 Insulin aspart) lidocaine 4 % topical patch 1 patch topical BID PRN 08/29/22 Unknown History (Salonpas (lidocaine)) magnesium oxide 400 mg PO DAILY 08/29/22 Unknown History melatonin 3 mg tablet 3 mg PO HS PRN 08/29/22 Unknown History metformin 500 mg tablet 500 mg PO BID 08/29/22 Unknown History metoprolol tartrate 25 mg tablet 25 mg PO BID bp 08/29/22 Unknown History nitroglycerin 0.4 mg sublingual 0.4 mg sublingual Q5-15M PRN 08/29/22 Unknown History tablet potassium chloride 10 mEq 10 meq PO DAILY 08/29/22 Unknown History tablet,extended release rosuvastatin 20 mg tablet 20 mg PO QHS 08/29/22 Unknown History sertraline 100 mg tablet 100 mg PO DAILY 08/29/22 Unknown History sitagliptin phosphate 100 mg 100 mg PO DAILY 08/29/22 Unknown History tablet (Januvia) tramadol 50 mg tablet 50 mg PO BID PRN 08/29/22 Unknown History amlodipine 5 mg tablet 5 mg PO DAILY BP 04/11/24 Unknown History duloxetine 20 mg capsule,delayed 20 mg PO DAILY depression 04/11/24 Unknown History release glimepiride 4 mg tablet 8 mg PO BID DM 04/11/24 Unknown History metformin 500 mg tablet,extended 1,000 mg PO BID DM 04/11/24 Unknown History release 24 hr Allergy/AdvReac Type Severity Reaction Status Date / Time No Known Allergies Allergy Verified 04/11/24 12:48 Family History Mother Diabetes Hypertension Father Diabetes Hypertension Surgical History History of coronary artery bypass graft x 3 (~08/21/22) Status post right foot surgery S/P peripheral artery angioplasty with stent placement (~07/25/21) History of coronary artery stent placement Social History household members: none Smoking Status: Never smoker alcohol intake: never substance use type: does not use Review of Systems (Anesthesia) ROS Narrative System reviewed and no additional complaints, except as documented.
[2024-04-12] MEDS: levoFLOXacin IV 750 MG/150 ML BAG 100 MG IV (10:00)
--- NOTE | 2024-04-12 10:30 | BON_PTH ---
PATIENT: ROSETTA STEWART LOC: [facility]#:[id number] AGE/SX: 64/M ROOM: [facility] RE04/11/[address]: Dr. Luna Dupont MD : 1960 BED: 1 DIS: 04/20/2024 SPEC #: [id number] RECD: 04/13/24 10:11 STATUS: LANCE REQ #: [id number] GHASSAN: 04/12/24 10:[address]: Ty Caba DEPT: SURGICAL PATHOLOGY RECD BY: Candida Latif ENTERED: 04/13/24 11:53 SP TYPE: Bone OTHR DR: MD Dr. Ty Kessler, DPM Dr. Kaitlin Ozuna, MD [address] ANTENNA RIGGER-C Tissues: A - Toe, NOS B - Toe, NOS Procedures: Decalcification bone/plaque Surgery Specimen Level IV Comments: @ Ordering doctor for DEC edited from to @ by DANIEL at 04/13/24 1308 @ Ordering doctor for SUIV edited from to @ by DANIEL at 04/13/24 1308 @ Submitting doctor edited from to @ by DANIEL at 04/13/24 1308 HEADER OPERATION: Left foot debridement of all nonviable, infected PRE-OP DIAGNOSIS: Acute osteomyelitis of metatarsal bone of left foot TISSUE SUBMITTED: A- 5th toe and 5th metatarsal head left foot, B- Clearance fragments 5th toe and 5th metatarsal head left foot MICROSCOPIC DIAGNOSIS A. 5th toe and 5th metatarsal head left foot, amputation: Skin and soft tissue with ulceration, acute inflammation, granulation and abscess formation. Bone with acute osteomyelitis. B. Clearance fragments 5th toe and 5th metatarsal head left foot, biopsy: Fragment of unremarkable bone. No evidence of osteomyelitis. AM/ 04/15/24 MICROSCOPIC DESCRIPTION Slides are reviewed. GROSS DESCRIPTION A. Received in fixative is one container labeled with the patient's name and designated 5th toe and 5th metatarsal head left foot. The specimen consists of a portion of toe measuring 6.0 x 2.0 x 2.0cm. A focal area of ulceration is noted close to the dissection margin measuring 1.5 x 1.0cm. Also present in the container is a detached piece of soft tissue measuring 2.5 x 1.5 x 1.0cm. Also present in the container is a detached piece of bone measuring 2.5 x 1.5 x 1.0cm. The nail appears atrophic. Fiscal Assistant sections are submitted in three cassettes as follows: 1- ulcerated area and detached piece of tissue, 2-&3- bone from toe and detached piece of bone after decalcification. B. Received in fixative is one container labeled with the patient's name and designated Clearance fragment 5th toe and 5th metatarsal head left foot. The specimen consists of a piece of bone measuring 0.5 x 0.3 x 0.3cm. The entire specimen is submitted in one cassette after decalcification. SJ.mr 04/13/2024 TC:2 CPT:[id number]
[2024-04-12] MEDS: Bupivacaine Mpf 0.5% 30 ML VIAL (10:35)
--- NOTE | 2024-04-12 10:45 | PCM.OPRPT ---
Report of Operation Date of Procedure: 04/12/24 Pre-Operative Diagnosis: Abscess left foot, ulcer down to necrotic bone with osteomyelitis left 5th toe and 5th metatarsal Post-Operative Diagnosis: Same Surgery/Procedure Performed:: Debridement of all nonviable, infected, and necrotic soft tissue and bone left foot Surgeon: Ty Caba compression molding machine setter: None Type of Anesthesia: Local and MAC Specimen's removed: 1. Resected 5th toe and 5th metatarsal head left foot - sent to pathology and microbiology 2. Clearance fragment 5th metatarsal left foot - sent to pathology and microbiology Estimated Blood Loss (mL): 5mL Description of Procedure: Indications: this is a 64 year old gentleman with multiple medical problems including diabetes, has a wound to left foot down to bone of the 5th metatarsal head - xrays consistent with osteomyelitis to the 5th metatarsal head and also noted to be small amount of air at site as well, there is significant cellulitis to the forefoot and WBC is elevated - discussed options with him and he elected to proceed with debridement of all nonviable, infected, necrotic soft tissue and bone. Reviewed procedure, possible benefits vs risks, goals, expectations - advised him the risks include but not limited to delayed or nonhealing, need for further surgery, infection, blood clots, deformity, problems walking and with shoes, bleeding, CRPS, loss of limb, loss of life. The consent form was reviewed with him and he freely signed it. No guarantees were given nor implied, no warranties were given. Operative Procedure: The patient was brought down to the operating room and was placed on the operating room table in the supine position. Patient was carefully secured to the operating room table with a safety belt around his waist. The patient was already on IV antibiotics. The patient received MAC anesthesia per the anesthesia team. A well padded pneumatic tourniquet was applied around his left ankle but never used or inflated. A total of 10mL of 0.5% Bupivacaine plain was given as a local left foot 5th ray block after the overlying skin was cleansed with 70% Isopropyl alcohol. A timeout was performed and the patient was proper identified and the surgical plan was confirmed. Further attention was directed to the patient's left foot where there again was noted to be a deep ulceration sub 5th metatarsal head which probed to the bone of the 5th metatarsal head, there some drainage consistent with infection and also cellulitis to the foot. Using a 15 blade an incision was made around the ulceration plantar left foot and the ulceration was excised, there was noted to be nonviable subcutaneous tissue, fascia and bone at this level. There was an abscess at this level which was debrided and excised using a 15 blade. The nonviable tissue extended into the 5th toe and the 5th toe was excised using a 15 blade. The head of the 5th metatarsal was noted to be soft and aguilar, it was resected using a powered sagittal saw. The ulceration was debrided down to healthy viable soft tissue and bone. Area of debridement measured: 2cm x 1.8cm and down and including bone as noted above. The site was flushed out with copious amounts of normal saline solution, the skin incision was reapproximated using 3-0 Prolene but left open distally to drain. The site was packed with 1/4in Iodoform packing and a gauze, kerlix, abd pad, and belem dressing bandage was applied. Of noted the debrided tissue was sent to pathology and microbiology and a clearance fragment was obtained from the bone and sent to pathology and microbiology. The patient tolerated the above procedure well and anesthesia well with no complications, post operative orders were placed and the patient was transported from the operating room to the receovery room with vital signs stable and in good condition. The patient will be followed as an inpatient. Grafts/Implants Used: None Complications None
--- NOTE | 2024-04-12 10:52 | PCM.POST.ANE ---
Anesthesia: Postop Eval I Current Vital Signs Temperature: 97 F Pulse Rate: 78 Blood Pressure: 137/77 Respiratory Rate: 16 Pulse Ox: 95 Oxygen Delivery Method: Room Air Assessment Airway patent: Yes Spontaneous unlabored respirations: Yes Mental status: Asleep nausea: No Vomiting: No Anesthesia Complication: No Fluid Hydration Crystalloid volume administer (ml): 300 Total IV fluid infused: 300 Progress Note Anesthesia document: Postop Eval 1 completed: Yes
--- NOTE | 2024-04-12 11:05 | RAD_ITS ---
INDICATION: post op EXAMINATION/TECHNIQUE: X-RAY - LEFT XR Foot Min 3 Views 3 VIEWS COMPARISON: 04/11/2024 FINDINGS: 3 views show postsurgical changes from amputation of the fifth ray at the mid fifth metatarsal. No other interval change. 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 Electronically Signed: Randell Villagran MD at 20:22 EDT ,
--- NOTE | 2024-04-12 11:22 | PCM.POSTANE2 ---
Anesthesia Postop Eval I Sum Postop Eval Completion status Anesthesia document: Postop Eval 1 completed: Yes Anesthesia Postop Eval I Summary Anesthesia Postop Eval I Summary: Anesthesia Postop Eval I: Assessment Summary Airway patent Yes 04/12/24 10:54 Spontaneous unlabored Yes 04/12/24 10:54 respirations Mental status Asleep 04/12/24 10:54 nausea No 04/12/24 10:54 Vomiting No 04/12/24 10:54 Anesthesia Postop Eval I: Fluid Summary Crystalloid volume administer 300 04/12/24 10:54 (ml) Colloids volume administered ( ml) Blood Product volume administered (ml) Total IV fluid infused 300 04/12/24 10:54 Anesthesia Postop Eval I: Summary Notes Anesthesia Complication No 04/12/24 10:54 Anesthesia Complication Comment: Post-operative progress note Anesthesia: Postop Eval II Evaluation Mental status: Awake and Calm Pain Level: 0 nausea: No Vomiting: No Complications Anesthesia Complication: No
[2024-04-12] MEDS: 0.9% Saline Lock 10 ML Syringe IV ×2 (11:39→17:37)
[2024-04-12] MEDS: Insulin Lispro 100 UNIT/ML INSULN.PEN SC ×3 (11:39→22:09)
[2024-04-12 11:59] LABS: Bedside Glucose 224 mg/dL (74-106)
--- NOTE | 2024-04-12 13:29 | PN.HOSP_ITS ---
Reason for Visit Reason for Visit: Left foot wound Subjective Subjective Patient is a 64-year-old male who is a known vasculopath who presented emergency department [facility] on 04/11/2024 due to left foot pain. 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 He complains of associated erythema and swelling of the right foot and reported it had been going on for a couple of days at the time of presentation. He also reports a wound on the distal first toe. He had been seeing a digitizer in [place] for debridements and was on 2 antibiotics and was told everything was good but he has not gone back to the digitizer for about 3 months as he noted it was too far to drive. Vital signs on presentation showed temperature 98.2, heart rate 87, respiratory rate 16, blood pressure 135/71, pulse ox was 96% on room air. CBC showed leukocytosis with a white count of 13.3 and a chronic stable hemoglobin at 12.9. Lately count was normal. He did have a left shift with an 8.4% neutrophilia. Chemistry panel showed mild hyponatremia with a sodium of 133 however his blood sugar on presentation was 262. Electrolytes were normal but his BUN and creatinine were elevated at 19 and 1.31 respectively. Baseline serum creatinine appears to run between 1 and 1.2. Hemoglobin A1c was obtained and was found to be 7.9. CRP was markedly elevated at 176 and his ESR was elevated at 60. X- rays of his foot showed possible erosion of the head at the fifth metatarsal and possible erosion of the tuft of the fifth distal phalanx concerning for osteomyelitis. He was admitted to the medical floor, placed on IV antibiotics, and podiatry was consulted. He was evaluated and taken to the OR for debridement and resection of the fifth metatarsal on 04/12/2024. There was not significant bleeding per discussion with Dr. Caba from podiatry so a vascular surgery consult was placed. Patient denies any current issues. He has had revascularization done previously by Dr. Wells over in [place]. His mother takes him to the appointments and this is evidently too far for her to drive if she is in her 80s. They were agreeable to consultation with Dr. Dickens as there was concern that he may have worsening vascular disease in his lower extremities due to the lack of bleeding during his surgical intervention. Objective Data Objective Data Vital Signs: Vital Signs Temp Pulse Resp BP Pulse Ox O2 Del Method 98.2 F 74 18 147/87 H 94 Room Air 04/12/24 11:44 04/12/24 11:44 04/12/24 11:44 04/12/24 11:44 04/12/24 11:44 04/12/24 11:44 Oxygen Delivery Method Room Air Weight: 91.8 kg Body Mass Index (BMI) 30.7 Intake & Output: Intake and Output for Last 24 Hours 04/10/24 04/11/24 04/12/24 23:59 23:59 23:59 Intake Total 740 / 740 950 / 950 Output Total 400 / 400 Balance 740 / 740 550 / 550 Lab / Micro Data 04/12/24 05:40 04/12/24 05:40 Labs: Laboratory Results - last 24 hr 04/11/24 14:35: WBC 13.3 H, RBC 4.52 L, Hgb 12.9 L, Hct 38.8 L, MCV 85.8, MCH 28.5, MCHC 33.2, RDW Std Deviation 39.1, RDW Coeff of Divya 12.5, Plt Count 244, MPV 9.6, Immature Gran % (Auto) 0.500, Neut % (Auto) 80.4 H, Lymph % (Auto) 10.6 L, [place] % (Auto) 7.2, Eos % (Auto) 1.1, Baso % (Auto) 0.2, Absolute Neuts (auto) 10.7 H, Absolute Lymphs (auto) 1.40, Nucleated RBC % 0, ESR 60 H, Sodium 133 L, Potassium 4.6, Chloride 98, Carbon Dioxide 29.0, Anion Gap 6, BUN 19 H, C reatinine 1.31 H, Estim Creat Clear Calc 62.44, Est GFR (MDRD) Af Amer 71, Est GFR (MDRD) Non-Af 58 L, BUN/Creatinine Ratio 14.5, Glucose 262 H, Hemoglobin A1c 7.9 H, Calcium 10.4 H, C-React Prot Ext Range 176.00 H 04/11/24 19:20: S.aureus Protein A PCR POSITIVE H, MRSA (PCR) Negative 04/11/24 20:55: POC Glucose 251 H 04/12/24 01:26: POC Glucose 242 H 04/12/24 05:40: WBC 11.5 H, RBC 4.41 L, Hgb 12.4 L, Hct 38.2 L, MCV 86.6, MCH 28.1, MCHC 32.5, RDW Std Deviation 39.8, RDW Coeff of Divya 12.5, Plt Count 240, MPV 9.7, Immature Gran % (Auto) 0.900, Neut % (Auto) 75.6 H, Lymph % (Auto) 12.5 L, [place] % (Auto) 8.6, Eos % (Auto) 2.1, Baso % (Auto) 0.3, Absolute Neuts (auto) 8.7 H, Absolute Lymphs (auto) 1.43, Nucleated RBC % 0, Sodium 132 L, Potassium 3.8, Chloride 100, Carbon Dioxide 23.0, Anion Gap 9, BUN 15, Creatinine 1.07, Estim Creat Clear Calc 75.70, Est GFR (MDRD) Af Amer 89, Est GFR (MDRD) Non-Af 74, BUN/Creatinine Ratio 14.0, Glucose 234 H, Calcium 9.5 04/12/24 06:13: POC Glucose 265 H 04/12/24 11:37: POC Glucose 224 H Micro: Microbiology 04/11/24 19:20 Wound - Left Foot Wound Culture - Preliminary Staphylococcus aureus Radiography Diagnostic Testing: Radiology Impression Foot X-Ray 04/11/24 14:50 IMPRESSION: Possible erosion at the head of the fifth metatarsal and possible erosion of the tuft of the fifth distal phalanx. Likely overlying ulceration at the base of the fifth digit. Electronically Signed: Jack Castorena DO at 15:07 EDT , Assessment & Plan Assessment/Plan (1) Non-pressure chronic ulcer of other part of left foot with necrosis of bone: (2) Acute osteomyelitis of left foot: PLAN: Plan Left fifth digit osteomyelitis/cellulitis right great toe -Postop day 0 debridement of nonviable and infected/necrotic tissue with fifth toe resection -Pathology pending -Patient with previous Pseudomonas resistant to cefepime so we will discontinue cefepime -Start Levaquin and continue Flagyl and vancomycin -Consult infectious disease -Wound care per podiatry -Consult wound care nurse Elevated serum creatinine on CKD stage IIIa -Baseline serum creatinine is between 1 and 1.2 -1.3 on admission -Trending down -Monitor closely with antibiotic use -BMP in a.m. [id number] -Hemoglobin A1c in 7.9 -Hold home oral agents -Patient not on any basal insulin from what we can tell -Continue sliding scale -Accu-Cheks before meals and at bedtime -Will need cardiac/carb controlled diet Chronic microcytic anemia -Hemoglobin stable -Continue to monitor CBC Peripheral vascular disease -Has been following with Dr. Wells -Patient reports recent revascularization but unable to say exactly when this occurred -Minimal bleeding during surgical intervention for osteomyelitis -Will consult Dr. Dickens here -Mother has indicated that driving to [place] is difficult for her as she helps take him to his appointments -Restart aspirin 81 mg daily -Restart Plavix 81 mg daily -Lower extremity arterial ultrasound and LEAS ordered CAD/essential HTN/HPL -History of CABG x 3 08/21/2022 -Restart aspirin and Plavix -Continue amlodipine 5 mg daily -Continue metoprolol 25 mg daily -Restart home statin History of asthma -Continue as needed albuterol inhaler Anxiety/depression -Continue home duloxetine Obesity -Recommend weight loss -BMI 30.8 -Complicate treatment, prognosis, outcomes DVT prophylaxis -Start enoxaparin 40 daily now that surgery is completed CODE STATUS -Full as verified Charges/Coding Visit Charges Inpatient E&M: 16620 Subs Hosp L2
[2024-04-12 17:13] LABS: Bedside Glucose 211 mg/dL (74-106)
--- NOTE | 2024-04-12 18:32 | NURSING ---
melt house drag operator contacted regarding IV restart needed.
[2024-04-12] MEDS: Atorvastatin Calcium 40 MG Tablet PO (22:10)
[2024-04-12 22:36] LABS: Bedside Glucose 249 mg/dL (74-106)
--- NOTE | 2024-04-12 23:06 | PCM.RX.CS ---
Consult Antibiotic Management Pharmacy has been consulted to manage selected antibiotic: Vancomycin Type of Intervention Type of Consult: Follow-up Suspected Infection Suspected Infection: Osteomyelitis Labs Labs: Sodium 132 mmol/L (136-145) L 04/12/24 05:40 Potassium 3.8 mmol/L (3.5-5.1) 04/12/24 05:40 Chloride 100 mmol/L (98-107) 04/12/24 05:40 Carbon Dioxide 23.0 mmol/L (21.0-32.0) 04/12/24 05:40 Anion Gap 9 (5-15) 04/12/24 05:40 BUN 15 mg/dL (7-18) 04/12/24 05:40 Creatinine 1.07 mg/dL (0.70-1.30) 04/12/24 05:40 Est GFR (MDRD) Af Amer 89 mL/min (>60) 04/12/24 05:40 Est GFR (MDRD) Non-Af 74 mL/min (>60) 04/12/24 05:40 BUN/Creatinine Ratio 14.0 RATIO (10-20) 04/12/24 05:40 Glucose 234 mg/dL (74-106) H 04/12/24 05:40 Microbiology Microbiology: Microbiology 04/11/24 19:20 Wound - Left Foot Gram Stain - Final 04/11/24 19:20 Wound - Left Foot Wound Culture - Preliminary Staphylococcus aureus Dosing Weight Weight used for dosin kg Estimated Creatinine Clearance Estimated Creatinine Clearance: 75 Goal Trough Goal Trough: 15-20 mcg/mL Pharmacy Plan for Drug Dosing Pharmacy Plan for Drug Dosing: Pharmacy was notified by RN that IV access has been temporarily lost. Insertion of a PICC line due to be attempted 04/13/24. Current vancomycin has been held and lab draw order suspended. Pharmacy will verify with nursing and re-start vanco therapy as soon as access is achieved. Pharmacy Service will continue to monitor and adjust dosing as required.
[2024-04-13] VITALS (8 sets, daily range): BP systolic 150–177; BP diastolic 76–86; PULSE 87–118; RESP 16–24; TEMP 36.5–37; O2SAT 92–95
[2024-04-13] MEDS: oxyCODONE 5 MG Tablet 10 MG PO ×3 (05:37→19:48)
[2024-04-13] MEDS: Insulin Lispro 100 UNIT/ML INSULN.PEN SC ×4 (07:03→22:12)
[2024-04-13 07:31] LABS: Bedside Glucose 275 mg/dL (74-106)
[2024-04-13 07:42] LABS: Absolute Lymphocyte Count 1.43 X10^3/uL (0.83-4.51); Absolute Neutrophil Count 8.3 X10^3/uL (2.0-7.7); Basophil# 0.02 X10^3/uL; Basophil% 0.2 % (0-1); Eosinophil# 0.16 X10^3/uL; Eosinophils% 1.5 % (0-5); Hematocrit 34.8 % (40-54); Hemoglobin 11.6 g/dL (13.0-16.5); Lymphocyte # 1.43 X10^3/ul (0.83-4.51); Lymphocyte % 13.1 % (19-41); Mean Corp Hgb Conc 33.3 g/dL (32-36); Mean Corpuscular Hgb 28.4 pg (27.0-32.0); Mean Corpuscular Volume 85.1 fL (80-94); Mean Platelet Vol. 9.6 fl (6.2-12.0); Monocyte# 0.91 X10^3/uL; Monocyte% 8.3 % (0-10); NRBC Flagged by Analyzer 0 % (0-5); Neutrophil % 75.8 % (47-70); Platelet Count 256 K/mm3 (150-450); RBC Distribution Width CV 12.2 % (11.6-14.6); RBC Distribution Width SD 37.8 fl (35.1-43.9); Red Blood Count 4.09 M/mm3 (4.6-6.2); White Blood Count 10.9 K/mm3 (4.4-11.0)
[2024-04-13 07:46] LABS: ALB/GLOB Ratio 0.7 RATIO (0.9-2.4); AST(SGOT) 13 U/L (15-37); Alanine Aminotransfer ALT/SGPT 24 U/L (16-61); Alkaline Phosphatase 104 U/L (45-117); Anion Gap 9 (5-15); BUN 15 mg/dL (7-18); BUN/Creat Ratio 12.8 RATIO (10-20); Calcium,Total 9.3 mg/dL (8.5-10.1); Chloride 99 mmol/L (98-107); Creatinine, Serum 1.17 mg/dL (0.70-1.30); EST Glomerular Filtration Rate 66 mL/min (>60); Est Glom Filt Rate - Afr Amer 80 mL/min (>60); Estimated Creatinine Clearance 69.23 ml/min; Globulin 4.1 g/dL (2.2-4.2); Glucose 286 mg/dL (74-106); Magnesium 1.7 mg/dL (1.6-2.6); Phosphorus 2.6 mg/dL (2.5-4.9); Potassium 4.1 mmol/L (3.5-5.1); Protein, Total 7.1 g/dL (6.4-8.2); Sodium Level 132 mmol/L (136-145)
[2024-04-13] MEDS: Metoprolol Tartrate 25 MG Tablet PO ×2 (08:36→22:11)
[2024-04-13] MEDS: amLODIPine 5 MG Tablet PO ×2 (08:37→15:13)
[2024-04-13] MEDS: DULoxetine Hcl 20 MG Capsule PO (08:37)
[2024-04-13] MEDS: Ferrous Sulfate 325 MG Tablet PO (08:38)
[2024-04-13] MEDS: Clopidogrel Bisulfate 75 MG Tablet PO (08:43)
[2024-04-13] MEDS: Aspirin E.C. 81 MG Tablet PO (08:43)
[2024-04-13] MEDS: Insulin Glargine-YFGN 100 UNIT/ML Pen 15 UNIT SC (09:44)
--- NOTE | 2024-04-13 10:05 | CASEMGMT ---
REJI PHILLIPS Assessment: Face to Face with pt for initial transition planning/care coordination assessment. REJI PHILLIPS introduced self and role at [facility], pt voices understanding and consents to assessment. Pt is A&O x4 and answers all questions appropriately at this time. Pt lying in bed in no distress, pt mom in room. Pt agreeable to answering questions with mom present. Care providers, pharmacy, and demographics verified/updated. Strata: 3 Admitting Dx: L FOT Osteomyelitis PCP: Rubén Specialists: Gertrudis, distiller; Cardiovascular. Preferred Pharmacy: [facility] Insurance: MMO [facility] Prescription Benefit: yes LNOK: Pat, mom. Living Arrangements: Pt lives alone in a 1 story home with zero steps to enter. ADLs: Pt reports I with ADLs and IADLs. Transportation: Pt drives self and denies concerns with transportation. DME: Glucometer and supplies, crutches, scooter. Pt denies wanting a walker. HHC/SNF: Pt denies Hx of SNF. Pt reports previously used [facility]. Pt states very unhappy with care here at the hospital. Pt reports he is about to crawl home if he has to, but he wants to go home. When REJI PHILLIPS asked pt about what he is upset about he replied nobody is doing anything to help me here. Pt reports being upset and no longer wishes to answer questions and asked REJI PHILLIPS to leave the room. REJI PHILLIPS asked pt if he would like to speak with pt advocate, pt replied no, it won't do any good. Pt mom reports she is able to assist pt at home at time of DC. CM to follow. Advised pt to ask CM if any further question/concerns/needs arise, voices understanding. Pt Goal: Home Plan: Home with family support, REJI PHILLIPS to follow ID and plan of care. Kehinde MENDOZA CM
--- NOTE | 2024-04-13 10:39 | CON.PCM.ID_ITS ---
Assessment & Plan Assessment/Plan (1) Acute osteomyelitis of left foot: PLAN: Taken to OR 04/12/[address] Caba for I&D. Wound cx with mssa. On vanc and levaquin. Surg cx pending. Had prior pseudomonas 2 years ago. Will restart flagyl. Will follow, thank you (2) Diabetes mellitus: QUALIFIERS: Diabetes mellitus type: type 2 Diabetes mellitus care home insulin use: with terminal carman use Diabetes mellitus complication status: w ith neurologic complications Diabetes mellitus complication detail: with polyneuropathy Qualified Code(s): E11.42 - Type 2 diabetes mellitus with diabetic polyneuropathy; Z79.4 - [facility] (current) use of insulin HPI Consult Data Date of Consult: 04/13/24 HPI Narrative Reason for Consultation: osteo HPI Narrative: ROSETTA STEWART, is a 64 M with h/o DM neuropathy, CAD s/p CABG, presented 04/11 with several days acute onset L foot pain, swelling, redness, and drainage. No fever or chills. No known inciting event. Admitted here on vanc/cefepime/flagyl. Taken to OR 04/12/[address] Caba for I&D down to bone. Now on vanc/levaquin, feeling ok. No fvever, no n/v/d. Full ROS performed and neg except as noted above. [facility] Medical History Essential hypertension Atherosclerotic heart disease of [place] coronary artery without angina pectoris History of left heart catheterization (LHC) (~08/15/22) CAD (coronary artery disease) Hypertension History of coronary artery disease Cardiology follow-up encounter History of echocardiogram Open wound Uses crutches High cholesterol Dietary restriction Non-smoker Asthma Coronary artery disease 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 Diabetes mellitus with diabetic polyneuropathy Type 2 diabetes mellitus with foot ulcer Other specified peripheral vascular diseases Osteomyelitis PAD (peripheral artery disease) Delayed wound healing Hallux limitus of right foot Anxiety Depression Myocardial infarct Hallux limitus of right foot Type 2 diabetes mellitus with diabetic polyneuropathy Toe infection Heart disease HTN (hypertension) Diabetes mellitus CAD (coronary artery disease) DM2 (diabetes mellitus, type 2) Asthma Home Medications ?Medication ?Instructions ?Recorded ?Last Taken ?Type albuterol sulfate 90 mcg/actuation 1 - 2 puff inhalation Q4H PRN PRN 09/17/20 Unknown History aerosol inhaler Wheezing clopidogrel 75 mg tablet 75 mg PO DAILY bld thinner 09/17/20 12/10/21 History fluticasone propionate 50 2 puff IH DAILY breathing 09/17/20 11/01/21 History mcg/actuation blister powder for inhalation acetaminophen 500 mg tablet 1,000 mg PO Q6H PRN pain 08/29/22 Unknown History ascorbic acid (vitamin C) 500 mg 500 mg PO DAILY . 08/29/22 Unknown History tablet aspirin 81 mg tablet,delayed 81 mg PO DAILY thinner 08/29/22 Unknown History release (Adult Low Dose Aspirin) empagliflozin 25 mg tablet 25 mg PO DAILY . 08/29/22 Unknown History ezetimibe 10 mg tablet (Zetia) 10 mg PO DAILY . 08/29/22 Unknown History ferrous sulfate 325 mg (65 mg 325 mg PO DAILY . 08/29/22 Unknown History iron) tablet,delayed release fluticasone propionate 50 1 spray intranasal DAILY . 08/29/22 Unknown History mcg/actuation nasal spray,suspension (Allergy Relief (fluticasone)) folic acid 1 mg tablet 1 mg PO DAILY 08/29/22 Unknown History furosemide 20 mg tablet 20 mg PO DAILY . 08/29/22 Unknown History gabapentin 100 mg capsule 200 mg PO BID 08/29/22 Unknown History insulin aspart U-100 100 unit/mL 12 unit subcut TID 08/29/22 Unknown History (3 mL) subcutaneous pen (Novolog FlexPen U-100 Insulin aspart) lidocaine 4 % topical patch 1 patch topical BID PRN 08/29/22 Unknown History (Salonpas (lidocaine)) magnesium oxide 400 mg PO DAILY 08/29/22 Unknown History melatonin 3 mg tablet 3 mg PO HS PRN 08/29/22 Unknown History metformin 500 mg tablet 500 mg PO BID 08/29/22 Unknown History metoprolol tartrate 25 mg tablet 25 mg PO BID bp 08/29/22 Unknown History nitroglycerin 0.4 mg sublingual 0.4 mg sublingual Q5-15M PRN 08/29/22 Unknown History tablet potassium chloride 10 mEq 10 meq PO DAILY 08/29/22 Unknown History tablet,extended release rosuvastatin 20 mg tablet 20 mg PO QHS 08/29/22 Unknown History sertraline 100 mg tablet 100 mg PO DAILY 08/29/22 Unknown History sitagliptin phosphate 100 mg 100 mg PO DAILY 08/29/22 Unknown History tablet (Januvia) tramadol 50 mg tablet 50 mg PO BID PRN 08/29/22 Unknown History amlodipine 5 mg tablet 5 mg PO DAILY BP 04/11/24 Unknown History duloxetine 20 mg capsule,delayed 20 mg PO DAILY depression 04/11/24 Unknown History release glimepiride 4 mg tablet 8 mg PO BID DM 04/11/24 Unknown History metformin 500 mg tablet,extended 1,000 mg PO BID DM 04/11/24 Unknown History release 24 hr Allergy/AdvReac Type Severity Reaction Status Date / Time No Known Allergies Allergy Verified 04/11/24 12:48 Family History Mother Diabetes Hypertension Father Diabetes Hypertension Surgical History History of coronary artery bypass graft x 3 (~08/21/22) Status post right foot surgery S/P peripheral artery angioplasty with stent placement (~07/25/21) History of coronary artery stent placement Social History household members: none Smoking Status: Never smoker alcohol intake: never substance use type: does not use Physical Exam Const alert, oriented x3 and no apparent distress General Appearance: cooperative HEENT normocephalic and head/scalp atraumatic Eyes PERRL and EOMs intact bilaterally Neck supple and No nodes Resp normal air movement and clear to auscultation bilaterally Cardio regular rate and regular rhythm GI soft to palpation, non-tender and non-distended Extremity General Extremity: edema Skin Skin Narrative: L foot wrapped Neuro CN's II-XII intact bilaterally Lab / Micro Data Attestation: I reviewed the patient's lab results. 04/13/24 06:37 04/13/24 06:37 Labs: Laboratory Results - last 24 hr 04/12/24 11:37: POC Glucose 224 H 04/12/24 16:46: POC Glucose 211 H 04/12/24 22:07: POC Glucose 249 H 04/13/24 06:37: WBC 10.9, RBC 4.09 L, Hgb 11.6 L, Hct 34.8 L, MCV 85.1, MCH 28.4, MCHC 33.3, RDW Std Deviation 37.8, RDW Coeff of Divya 12.2, Plt Count 256, MPV 9.6, Immature Gran % (Auto) 1.100 H, Neut % (Auto) 75.8 H, Lymph % (Auto) 13.1 L, [place] % (Auto) 8.3, Eos % (Auto) 1.5, Baso % (Auto) 0.2, Absolute Neuts (auto) 8.3 H, Absolute Lymphs (auto) 1.43, Nucleated RBC % 0, Sodium 132 L, Potassium 4.1, Chloride 99, Carbon Dioxide 24.0, Anion Gap 9, BUN 15, Creatinine 1.17, Estim Creat Clear Calc 69.23, Est GFR (MDRD) Af Amer 80, Est GFR (MDRD) Non-Af 66, BUN/Creatinine Ratio 12.8, Glucose 286 H, Calcium 9.3, Phosphorus 2.6, Magnesium 1.7, Total Bilirubin 0.70, AST 13 L, ALT 24, Alkaline Phosphatase 104, Total Protein 7.1, Albumin 3.0 L, Globulin 4.1, Albumin/Globulin Ratio 0.7 L 04/13/24 07:02: POC Glucose 275 H Micro: Microbiology 04/12/24 Unknown Tissue - Clearance Fragment Wound Culture - Preliminary Gram Positive Cocci 04/12/24 Unknown Tissue - 5th Toe Wound Culture - Preliminary Gram positive organism 04/11/24 19:20 Wound - Left Foot Gram Stain - Final 04/11/24 19:20 Wound - Left Foot Wound Culture - Final Staphylococcus aureus Imaging Radiology Impression Foot X-Ray 04/12/24 11:05 IMPRESSION: Status post mid metatarsal amputation of the left fifth ray. Electronically Signed: Randell Villagran MD at 20:22 EDT ,
[2024-04-13 12:23] LABS: Bedside Glucose 333 mg/dL (74-106)
--- NOTE | 2024-04-13 12:35 | PCM.PROGNOTE ---
Subjective Subjective Patient was seen today for follow up on left foot. He is resting in bed. WBC normal, no new complaints at this time. Objective Data Objective Data Vital Signs: Vital Signs Temp Pulse Resp BP Pulse Ox O2 Del Method 98.6 F 91 18 170/76 H 93 Room Air 04/13/24 08:33 04/13/24 08:36 04/13/24 08:33 04/13/24 08:36 04/13/24 08:33 04/13/24 08:33 Oxygen Delivery Method Room Air Weight: 91.8 kg Body Mass Index (BMI) 30.7 Intake & Output: Intake and Output for Last 24 Hours 04/11/24 04/12/24 04/13/24 23:59 23:59 23:59 Intake Total 740 / 740 1096.67 / 1096.67 1000 / 1000 Output Total 400 / 400 1999 / 1999 Balance 740 / 740 696.67 / 696.67 -1000 / -1000 Lab / Micro Data 04/13/24 06:37 04/13/24 06:37 Labs: Laboratory Results - last 24 hr 04/12/24 16:46: POC Glucose 211 H 04/12/24 22:07: POC Glucose 249 H 04/13/24 06:37: WBC 10.9, RBC 4.09 L, Hgb 11.6 L, Hct 34.8 L, MCV 85.1, MCH 28.4, MCHC 33.3, RDW Std Deviation 37.8, RDW Coeff of Divya 12.2, Plt Count 256, MPV 9.6, Immature Gran % (Auto) 1.100 H, Neut % (Auto) 75.8 H, Lymph % (Auto) 13.1 L, [place] % (Auto) 8.3, Eos % (Auto) 1.5, Baso % (Auto) 0.2, Absolute Neuts (auto) 8.3 H, Absolute Lymphs (auto) 1.43, Nucleated RBC % 0, Sodium 132 L, Potassium 4.1, Chloride 99, Carbon Dioxide 24.0, Anion Gap 9, BUN 15, Creatinine 1.17, Estim Creat Clear Calc 69.23, Est GFR (MDRD) Af Amer 80, Est GFR (MDRD) Non-Af 66, BUN/Creatinine Ratio 12.8, Glucose 286 H, Calcium 9.3, Phosphorus 2.6, Magnesium 1.7, Total Bilirubin 0.70, AST 13 L, ALT 24, Alkaline Phosphatase 104, Total Protein 7.1, Albumin 3.0 L, Globulin 4.1, Albumin/Globulin Ratio 0.7 L 04/13/24 07:02: POC Glucose 275 H 04/13/24 11:38: POC Glucose 333 H Micro: Microbiology 04/12/24 Unknown Tissue - Clearance Fragment Gram Stain - Final 04/12/24 Unknown Tissue - Clearance Fragment Wound Culture - Preliminary Gram Positive Cocci 04/12/24 Unknown Tissue - 5th Toe Gram Stain - Final 04/12/24 Unknown Tissue - 5th Toe Wound Culture - Preliminary Gram positive organism 04/11/24 19:20 Wound - Left Foot Gram Stain - Final 04/11/24 19:20 Wound - Left Foot Wound Culture - Final Staphylococcus aureus Radiography Diagnostic Testing: Radiology Impression Foot X-Ray 04/12/24 11:05 IMPRESSION: Status post mid metatarsal amputation of the left fifth ray. Electronically Signed: Randell Villagran MD at 20:22 EDT , Physical Exam Const alert, oriented x3 and no apparent distress Constitutional Narrative: Left foot s/p 5th ray debridement down to bone tissue is viable but there is residual cellulitis extending to the midfoot dorsally and plantarlly, there is no necrosis, no fluctuance, no crepitus, no maloder, wound distal left 1st toe down to subc tissue, no acute ischemia to the left foot or ankle. No evidence of DVT bilateral. Assessment & Plan Assessment/Plan (1) Acute osteomyelitis of left foot: (2) Non-pressure chronic ulcer of other part of left foot with necrosis of bone: PLAN: Plan Evaluation performed. s/p left foot debridement He is on IV antibiotics - Vanc, Zosyn, and Flagyl - ID on consult No weightbearing left foot Wound care left foot - Iodoform packing and gauze dressing - keep clean, dry and intact at this time Hx of PAD - ordered new LEAS and arterial duplex studies for further evaluation - reviewed - consulted vascular surgery Podiatry will continue to follow
[2024-04-13] MEDS: metroNIDAZOLE 500 MG Tablet PO ×3 (13:19→22:12)
--- NOTE | 2024-04-13 13:45 | WOUNDNOTE ---
wound photo: left foot
--- NOTE | 2024-04-13 13:46 | WOUNDNOTE ---
wound photo: left foot
--- NOTE | 2024-04-13 14:35 | PN.HOSP_ITS ---
Reason for Visit Reason for Visit: Left foot wound Subjective Subjective Patient with multiple complaints. Mostly complains he related to his family. He states he did not get a full meal last night. He is on a restricted diet due to his vascular disease and history of diabetes. He did state he got his full meal this morning and we did discuss his meal issues with the charge nurse for the floor and she indicated she would address this. He also had multiple other complaints related to things outside of this hospitalization. I tried to explain what was going on with regards to his current condition and his chronic medical issues but he would not stop complaining about his outside complaints with regards to his health care to listen long enough for me to give him any good input. I explained to him that when he wanted to hear more about his current hospitalization rather than complain about what had happened previously at other facilities but I would come back because he was being very accusatory to me with regards to things I had no input over and he would not stay focused on current issues that I have input and to help him with. He has been somewhat belligerent with nursing and other ancillary staff being as well. Objective Data Objective Data Vital Signs: Vital Signs Temp Pulse Resp BP Pulse Ox O2 Del Method 98.6 F 91 18 170/76 H 93 Room Air 04/13/24 08:33 04/13/24 08:36 04/13/24 08:33 04/13/24 08:36 04/13/24 08:33 04/13/24 08:33 Oxygen Delivery Method Room Air Weight: 91.8 kg Body Mass Index (BMI) 30.7 Intake & Output: Intake and Output for Last 24 Hours 04/11/24 04/12/24 04/13/24 23:59 23:59 23:59 Intake Total 740 / 740 1096.67 / 1096.67 1600 / 1600 Output Total 400 / 400 1999 / 1999 Balance 740 / 740 696.67 / 696.67 -400 / -400 Lab / Micro Data 04/13/24 06:37 04/13/24 06:37 Labs: Laboratory Results - last 24 hr 04/12/24 16:46: POC Glucose 211 H 04/12/24 22:07: POC Glucose 249 H 04/13/24 06:37: WBC 10.9, RBC 4.09 L, Hgb 11.6 L, Hct 34.8 L, MCV 85.1, MCH 28.4, MCHC 33.3, RDW Std Deviation 37.8, RDW Coeff of Divya 12.2, Plt Count 256, MPV 9.6, Immature Gran % (Auto) 1.100 H, Neut % (Auto) 75.8 H, Lymph % (Auto) 13.1 L, [place] % (Auto) 8.3, Eos % (Auto) 1.5, Baso % (Auto) 0.2, Absolute Neuts (auto) 8.3 H, Absolute Lymphs (auto) 1.43, Nucleated RBC % 0, Sodium 132 L, Potassium 4.1, Chloride 99, Carbon Dioxide 24.0, Anion Gap 9, BUN 15, Creatinine 1.17, Estim Creat Clear Calc 69.23, Est GFR (MDRD) Af Amer 80, Est GFR (MDRD) Non-Af 66, BUN/Creatinine Ratio 12.8, Glucose 286 H, Calcium 9.3, Phosphorus 2.6, Magnesium 1.7, Total Bilirubin 0.70, AST 13 L, ALT 24, Alkaline Phosphatase 104, Total Protein 7.1, Albumin 3.0 L, Globulin 4.1, Albumin/Globulin Ratio 0.7 L 04/13/24 07:02: POC Glucose 275 H 04/13/24 11:38: POC Glucose 333 H Micro: Microbiology 04/11/24 14:31 Blood Culture (Wb) - Anticubital Right Blood Culture - Preliminary No growth in 48 hours. 04/12/24 Unknown Tissue - Clearance Fragment Gram Stain - Final 04/12/24 Unknown Tissue - Clearance Fragment Wound Culture - Preliminary Gram Positive Cocci 04/12/24 Unknown Tissue - 5th Toe Gram Stain - Final 04/12/24 Unknown Tissue - 5th Toe Wound Culture - Preliminary Gram positive organism 04/11/24 19:20 Wound - Left Foot Gram Stain - Final 04/11/24 19:20 Wound - Left Foot Wound Culture - Final Staphylococcus aureus Radiography Diagnostic Testing: Radiology Impression Extremity Arterial Study 04/11/24 19:45 Interpretation Summary Right RACHEL 1.22, normal though may be artificially elevated. Doppler/PVR waveforms of the right leg mildly diminished. Left RACHEL 0.54, moderate arterial insufficiency. 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 Electronically Signed: Randell Villagran MD at 20:22 EDT , Physical Exam Const alert, oriented x3, no apparent distress and well nourished; Negative for average body habitus or healthy appearing Constitutional Narrative: Obese, middle-aged, white male, sitting up in bed, appears comfortable, mother at bedside, watching television, somewhat agitated about multiple things but was specifically here his meals, appears chronically ill but not acutely toxic HEENT head/scalp atraumatic, moist oral mucous membranes and oropharynx normal HEENT Narrative: Mallampati is 3, no thrush Head and Scalp: normocephalic Resp normal respiratory effort, no retractions, no use of accessory muscles and clear to auscultation bilaterally Auscultation: Negative for rales, rhonchi or wheezes Cardio regular rate, regular rhythm, S1 normal heart sound, S2 normal heart sound, no murmurs, no rub, no gallops and no clicks GI normal to inspection, nondistended, normoactive bowel sounds, soft to palpation and non-tender GI Narrative: Protuberant abdomen Extremity Extremity Narrative: Left lower extremity with postoperative dressing in place, cap refill slightly delayed, pedal pulses on right lower extremity are 1+ Skin Skin Narrative: Bilateral lower extremity skin changes consistent with venous stasis and vascular disease, images from dressing change reviewed Neuro oriented x3, moves all extremities and no focal motor deficits Neuro Narrative: Decreased sensation bilateral feet Speech: speech normal Psych Psych Narrative: Agitated and argumentative Assessment & Plan Assessment/Plan (1) Non-pressure chronic ulcer of other part of left foot with necrosis of bone: (2) Acute osteomyelitis of left foot: PLAN: Plan Left fifth digit osteomyelitis/cellulitis right great toe -Postop day 1 debridement of nonviable and infected/necrotic tissue with fifth toe resection -Current micro showing gram-positive cocci with Staph aureus on culture appears to be MSSA -Blood cultures are no growth at 48 hours -Patient with previous Pseudomonas resistant to cefepime so we will discontinue cefepime -Continue Levaquin, Flagyl, vancomycin -Infectious disease and podiatry are following-appreciate input -Wound care nurses following-appreciate assistance Elevated serum creatinine on CKD stage IIIa -Baseline serum creatinine is between 1 and 1.2 - elevated creatinine normalized back to baseline -Trending down -Monitor closely with antibiotic use -BMP in a.m. [id number] -Hemoglobin A1c in 7.9 -Hold home oral agents -AM fasting blood sugars are markedly elevated at 286 -Add Lantus 15 units -Continue sliding scale -Accu-Cheks before meals and at bedtime -Cardiac/carb controlled diet Chronic microcytic anemia -Hemoglobin stable -Continue to monitor CBC Peripheral vascular disease -Has been following with Dr. Wells -Patient reports recent revascularization but unable to say exactly when this occurred--> thinks it was about 6 months ago -Minimal bleeding during surgical intervention for osteomyelitis -Vascular surgery consult with Dr. Dickens pending -Mother has indicated that driving to [place] is difficult for her as she helps take him to his appointments -Continue aspirin 81 mg daily -Continue Plavix 81 mg daily -Lower extremity arterial ultrasound and LEAS are pending CAD/essential HTN/HPL -History of CABG x 3 08/21/2022 -Restart aspirin and Plavix -Increase amlodipine to 10 mg daily as blood pressure is not well-controlled -Continue metoprolol 25 mg daily -If further medications are needed for blood pressure will add lisinopril -Continue home statin -Patient has not been compliant in states he was going to be started on injection medication for his cholesterol however insurance denied it and he never restarted his pills as he did not have any more at home and did not call and ask for more History of asthma -Continue as needed albuterol inhaler Anxiety/depression -Continue home duloxetine Obesity -Recommend weight loss -BMI 30.8 -Complicate treatment, prognosis, outcomes DVT prophylaxis -Continue enoxaparin 40 daily CODE STATUS -Full as verified Charges/Coding Visit Charges Inpatient E&M: 28312 Subs Hosp L2
[2024-04-13] MEDS: Vancomycin IV 1,000 MG/200 ML BAG 200 MG IV (15:09)
[2024-04-13] MEDS: 0.9% Saline Lock 10 ML Syringe IV ×2 (15:09→20:38)
--- NOTE | 2024-04-13 15:45 | PRO.PCM_ITS ---
Procedure Report Date of Procedure: 04/13/24 Assessment & Plan Assessment/Plan (1) Acute osteomyelitis of left foot: PLAN: Midline insertion in right basilic: Patient identity was verified with two patient identifiers. Hands were sanitized. The patient was positioned supine with right arm at 90 degrees. The patient's upper arm vasculature was assessed using ultrasound, and the right basilic vein was externally marked. An external measurement was obtained of 9 cm. Cap, mask, and prep gloves were donned. The underdrape was placed under the patient's arm. The site was prepped with chlorhexidine, and tourniquet was loosely applied. Prep gloves were discarded, and hands were sanitized. The sterile kit was opened with additional supplies dropped in. Sterile gown and gloves were donned, and the patient was draped. The sterile kit was assembled with all needle, introducer, connector, and catheter flushed with sterile normal saline. The marked site of insertion was anesthetized with 1% lidocaine. Patient tolerated well. The right basilic vein was then accessed using ul trasound guidance and guidewire was inserted to safety andi. The tourniquet was released. The access needle was removed while securing the guidewire in place. The site was again anesthetized with 1% lidocaine, prior to insertion of introducer sheath and dilator. Patient tolerated well. The catheter was trimmed to a length of 9 cm, and again flushed with sterile normal saline. The catheter was then inserted through the introducer sheath, slowly. There was no resistance on insertion. The introducer sheath was retracted and peeled away, incrementally, while keeping the catheter secured. The catheter was fully inserted leaving 0 cm external. Blood return was verified and flushed needless connector was attached. The midline was flushed with sterile normal saline in a pulsatile fashion and clamped. Total sterile flushes used for the insertion was two 10 ml syringes, one from the kit. Finally, the insertion site was cleaned with chlorhexidine, and the catheter was secured using a StatLock. The site was covered with a Tegaderm CHG Dressing. Baseline arm circumference was obtained at the insertion site and measured 34 cm. The primary nurse is aware that the midline is ready for use. REF: [id number] LOT: [id number] Procedures Radiology Radiology Access Procedures: MIDL
[2024-04-13] MEDS: levoFLOXacin IV 750 MG/150 ML BAG 100 MG IV (16:25)
[2024-04-13 16:35] LABS: Bedside Glucose 302 mg/dL (74-106)
--- NOTE | 2024-04-13 18:24 | CT_ITS ---
EXAM: CT ANGIOGRAPHY ABDOMEN AND PELVIS WITH RUNOFF TO THE LOWER EXTREMITIES WITH INTRAVENOUS CONTRAST CLINICAL INDICATION: atherosclerosis with ulceration TECHNIQUE: Helically acquired angiography images were obtained of the abdomen, pelvis and lower extremities with intravenous contrast using CTA runoff protocol. This CT exam was performed using one or more of the following dose reduction techniques: automated exposure control, adjustment of the mA and/or kV according to patient size, and/or use of iterative reconstruction technique. MIP reconstructed images were created and reviewed. CONTRAST: IV 100mL Isovue-370 RADIATION DOSE: CTDIvol = 8.10 mGy, DLP = 1544.51 mGy-cm COMPARISON: No relevant prior studies available. FINDINGS: VASCULATURE: AORTA: No acute findings. Normal caliber abdominal aorta. No occlusion or significant stenosis. No dissection. CELIAC TRUNK AND MESENTERIC ARTERIES: No acute findings. No occlusion or significant stenosis. No dissection. RENAL ARTERIES: Mild stenosis of the left renal artery origin. RIGHT ILIAC ARTERIES: No acute findings. No occlusion or significant stenosis. No dissection. RIGHT FEMORAL/POPLITEAL ARTERIES: Moderate irregular stenosis throughout the right superficial femoral and popliteal arteries. RIGHT CALF/FOOT ARTERIES: Moderate irregular stenosis throughout the right calf arteries with little to no flow identified within the posterior tibial artery. LEFT ILIAC ARTERIES: No acute findings. No occlusion or significant stenosis. No dissection. LEFT FEMORAL/POPLITEAL ARTERIES: Moderate irregular stenosis throughout the left superficial femoral and popliteal arteries. LEFT CALF/FOOT ARTERIES: Moderate irregular stenosis in the left calf arteries, with minimal flow in the posterior tibial artery beginning at the level of the ankle. LOWER THORAX: Unremarkable. Lung bases are clear. No cardiomegaly. No significant pericardial effusion. ABDOMEN: LIVER: Unremarkable. Homogeneous. No focal mass. GALLBLADDER AND BILE DUCTS: Unremarkable. No calcified gallstones. No gallbladder distention or wall edema. No intra- or extrahepatic biliary ductal dilation. PANCREAS: Unremarkable. No focal cystic or solid mass. SPLEEN: Unremarkable. Normal size without focal cystic or solid mass. ADRENALS: Unremarkable. No nodules. KIDNEYS AND URETERS: Unremarkable. Normal renal size and position. No hydronephrosis. STOMACH AND BOWEL: Unremarkable. No stomach or bowel distention. No focal inflammatory change. PELVIS: APPENDIX: No evidence of acute appendicitis. BLADDER: Unremarkable. REPRODUCTIVE: Unremarkable as visualized. No mass. ABDOMEN, PELVIS and LOWER EXTREMITIES: INTRAPERITONEAL SPACE: Unremarkable. No ascites or other fluid collection. No free air. BONES/JOINTS: Previous left fifth toe and distal fifth metatarsal amputation. Degenerative changes of the spine. No suspicious lytic or blastic abnormality. SOFT TISSUES: Soft tissue ulceration with foci of air adjacent to the distal end of the remaining fifth metatarsal shaft. No discrete abdominal or pelvic wall hernia. LYMPH NODES: Unremarkable. No enlarged lymph nodes. CT/CTA Abd w/Runoff W/WO Contrast IMPRESSION: 1. Moderate irregular stenosis throughout the bilateral superficial femoral and popliteal arteries. 2. Moderate irregular stenosis in the left calf arteries, with minimal flow in the posterior tibial artery beginning at the level of the ankle. 3. Moderate irregular stenosis throughout the right calf arteries with little to no flow identified within the posterior tibial artery. 4. Soft tissue ulceration with foci of air adjacent to the distal end of the remaining fifth metatarsal shaft. Findings consistent with the plain film appearance. Please see the separate MRI foot exam. Electronically Signed: Inderjit Elena MD at 23:30 EDT ,
--- NOTE | 2024-04-13 18:25 | CON.PCM.SX_ITS ---
Assessment & Plan Assessment/Plan (1) Non-pressure chronic ulcer of other part of left foot with necrosis of bone: PLAN: -moderate insufficiency, Hx DM non-healing despite wound care and now with acute infection -given prior interventions will obtain CTA runoff to further define anatomy -potential angio if CT suggests options for endovascular tx HPI Consult Data Date of Consult: 04/13/24 HPI Narrative HPI Narrative: ROSETTA STEWART, is a 64 M who presents with chronic left foot wound with acute infection. Was taken yesterday for surgical drainage. Wound has been present to some extent for about 1 year. Had LLE arterial intervention in [place] about 6 months ago and had near resolution of the wound with return of digit and lateral foot wound over past month or two. Also with prior RLE wounds and interventions in the past. DM with A1c he thinks about 9. On ASA/plavix. [facility]LY [facility] Medical History Essential hypertension Atherosclerotic heart disease of [place] coronary artery without angina pectoris History of left heart catheterization (LHC) (~08/15/22) CAD (coronary artery disease) Hypertension History of coronary artery disease Cardiology follow-up encounter History of echocardiogram Open wound Uses crutches High cholesterol Dietary restriction Non-smoker Asthma Coronary artery disease 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 Diabetes mellitus with diabetic polyneuropathy Type 2 diabetes mellitus with foot ulcer Other specified peripheral vascular diseases Osteomyelitis PAD (peripheral artery disease) Delayed wound healing Hallux limitus of right foot Anxiety Depression Myocardial infarct Hallux limitus of right foot Type 2 diabetes mellitus with diabetic polyneuropathy Toe infection Heart disease HTN (hypertension) Diabetes mellitus CAD (coronary artery disease) DM2 (diabetes mellitus, type 2) Asthma Home Medications ?Medication ?Instructions ?Recorded ?Last Taken ?Type albuterol sulfate 90 mcg/actuation 1 - 2 puff inhalation Q4H PRN PRN 09/17/20 Unknown History aerosol inhaler Wheezing clopidogrel 75 mg tablet 75 mg PO DAILY bld thinner 09/17/20 12/10/21 History fluticasone propionate 50 2 puff IH DAILY breathing 09/17/20 11/01/21 History mcg/actuation blister powder for inhalation acetaminophen 500 mg tablet 1,000 mg PO Q6H PRN pain 08/29/22 Unknown History ascorbic acid (vitamin C) 500 mg 500 mg PO DAILY . 08/29/22 Unknown History tablet aspirin 81 mg tablet,delayed 81 mg PO DAILY thinner 08/29/22 Unknown History release (Adult Low Dose Aspirin) empagliflozin 25 mg tablet 25 mg PO DAILY . 08/29/22 Unknown History ezetimibe 10 mg tablet (Zetia) 10 mg PO DAILY . 08/29/22 Unknown History ferrous sulfate 325 mg (65 mg 325 mg PO DAILY . 08/29/22 Unknown History iron) tablet,delayed release fluticasone propionate 50 1 spray intranasal DAILY . 08/29/22 Unknown History mcg/actuation nasal spray,suspension (Allergy Relief (fluticasone)) folic acid 1 mg tablet 1 mg PO DAILY 08/29/22 Unknown History furosemide 20 mg tablet 20 mg PO DAILY . 08/29/22 Unknown History gabapentin 100 mg capsule 200 mg PO BID 08/29/22 Unknown History insulin aspart U-100 100 unit/mL 12 unit subcut TID 08/29/22 Unknown History (3 mL) subcutaneous pen (Novolog FlexPen U-100 Insulin aspart) lidocaine 4 % topical patch 1 patch topical BID PRN 08/29/22 Unknown History (Salonpas (lidocaine)) magnesium oxide 400 mg PO DAILY 08/29/22 Unknown History melatonin 3 mg tablet 3 mg PO HS PRN 08/29/22 Unknown History metformin 500 mg tablet 500 mg PO BID 08/29/22 Unknown History metoprolol tartrate 25 mg tablet 25 mg PO BID bp 08/29/22 Unknown History nitroglycerin 0.4 mg sublingual 0.4 mg sublingual Q5-15M PRN 08/29/22 Unknown History tablet potassium chloride 10 mEq 10 meq PO DAILY 08/29/22 Unknown History tablet,extended release rosuvastatin 20 mg tablet 20 mg PO QHS 08/29/22 Unknown History sertraline 100 mg tablet 100 mg PO DAILY 08/29/22 Unknown History sitagliptin phosphate 100 mg 100 mg PO DAILY 08/29/22 Unknown History tablet (Januvia) tramadol 50 mg tablet 50 mg PO BID PRN 08/29/22 Unknown History amlodipine 5 mg tablet 5 mg PO DAILY BP 04/11/24 Unknown History duloxetine 20 mg capsule,delayed 20 mg PO DAILY depression 04/11/24 Unknown History release glimepiride 4 mg tablet 8 mg PO BID DM 04/11/24 Unknown History metformin 500 mg tablet,extended 1,000 mg PO BID DM 04/11/24 Unknown History release 24 hr Allergy/AdvReac Type Severity Reaction Status Date / Time No Known Allergies Allergy Verified 04/11/24 12:48 Family History Mother Diabetes Hypertension Father Diabetes Hypertension Surgical History History of coronary artery bypass graft x 3 (~08/21/22) Status post right foot surgery S/P peripheral artery angioplasty with stent placement (~07/25/21) History of coronary artery stent placement Social History household members: none Smoking Status: Never smoker alcohol intake: never substance use type: does not use ROS Constitutional Constitutional: Denies chills, fever(s), frequent falls, lethargy or weakness Eyes Eyes: Denies blind spots, change in vision or loss of vision ENT HEENT: Denies bleeding gums, hoarseness or sore throat Cardiovascular Cardiovascular: Reports erythema on extremities; Denies abdominal pain, bluish discoloration of hand/feet, chest pain with activity, claudication, cold extremities, cyanosis, dyspnea on exertion, irregular heart rhythm, leg edema, leg ulcers, numbness in extremities or weakness in extremities Respiratory/Chest Respiratory/Chest: Denies cough, excessive phlegm production, shortness of breath at rest, shortness of breath with exertion or wheezing Gastrointestinal Gastrointestinal: Denies anorexia, change in stool character, constipation, diarrhea, melena or rectal bleeding Genitourinary Genitourinary: Denies dysuria or hematuria Musculoskeletal Musculoskeletal: Denies abnormal gait Integumentary Integumentary: Reports non-healing lesions and wounds; Denies erythema Neurologic Neurologic: Reports numbness; Denies abnormal speech, focal weakness, headache(s), loss of vision, paresthesias or sensory deficit Hematologic/Lymphatic Hematologic/Lymphatic: Denies easy bleeding, easy bruising or lymphadenopathy Physical Exam Const alert, oriented x3, no apparent distress and healthy appearing General Appearance: cooperative; Negative for combative or lethargic Orientation / Consciousness: awake Exam Limitations: no limitations HEENT Head and Scalp: normocephalic and atraumatic Eyes EOMs intact bilaterally General Eye: normal appearance of both eyes Neck full ROM, no lymphadenopathy and thyroid normal General: trachea midline; Negative for lymphadenopathy or tenderness Thyroid: thyroid normal Resp normal respiratory effort and no use of accessory muscles Effort and Inspection: Negative for labored, stridor or audible wheezes Cardio regular rate and regular rhythm Peripheral Pulses: brachial pulses present, radial pulses present and femoral pulses present Back/Spine Cervical Spine: cervical ROM normal Extremity full ROM, normal capillary refill and no clubbing, cyanosis or edema Skin no rashes or lesions noted and no wounds Neuro oriented x3, CN's II-XII intact bilaterally, no focal motor deficits and no sensory deficits noted Psych thought process normal, cooperative, affect normal, speech normal and activity/motor behavior normal Lab / Micro Data 04/13/24 06:37 04/13/24 06:37 Labs: Laboratory Results - last 24 hr 04/12/24 22:07: POC Glucose 249 H 04/13/24 06:37: WBC 10.9, RBC 4.09 L, Hgb 11.6 L, Hct 34.8 L, MCV 85.1, MCH 28.4, MCHC 33.3, RDW Std Deviation 37.8, RDW Coeff of Divya 12.2, Plt Count 256, MPV 9.6, Immature Gran % (Auto) 1.100 H, Neut % (Auto) 75.8 H, Lymph % (Auto) 13.1 L, [place] % (Auto) 8.3, Eos % (Auto) 1.5, Baso % (Auto) 0.2, Absolute Neuts (auto) 8.3 H, Absolute Lymphs (auto) 1.43, Nucleated RBC % 0, Sodium 132 L, Potassium 4.1, Chloride 99, Carbon Dioxide 24.0, Anion Gap 9, BUN 15, Creatinine 1.17, Estim Creat Clear Calc 69.23, Est GFR (MDRD) Af Amer 80, Est GFR (MDRD) Non-Af 66, BUN/Creatinine Ratio 12.8, Glucose 286 H, Calcium 9.3, Phosphorus 2.6, Magnesium 1.7, Total Bilirubin 0.70, AST 13 L, ALT 24, Alkaline Phosphatase 104, Total Protein 7.1, Albumin 3.0 L, Globulin 4.1, Albumin/Globulin Ratio 0.7 L 04/13/24 07:02: POC Glucose 275 H 04/13/24 11:38: POC Glucose 333 H 04/13/24 16:12: POC Glucose 302 H Micro: Microbiology 04/11/24 14:31 Blood Culture (Wb) - Anticubital Right Blood Culture - Preliminary No growth in 48 hours. 04/12/24 Unknown Tissue - Clearance Fragment Gram Stain - Final 04/12/24 Unknown Tissue - Clearance Fragment Wound Culture - Preliminary Gram Positive Cocci 04/12/24 Unknown Tissue - 5th Toe Gram Stain - Final 04/12/24 Unknown Tissue - 5th Toe Wound Culture - Preliminary Gram positive organism 04/11/24 19:20 Wound - Left Foot Gram Stain - Final 04/11/24 19:20 Wound - Left Foot Wound Culture - Final Staphylococcus aureus Imaging Radiology Impression Extremity Arterial Study 04/11/24 19:45 Interpretation Summary Right RACHEL 1.22, normal though may be artificially elevated. Doppler/PVR waveforms of the right leg mildly diminished. Left RACHEL 0.54, moderate arterial insufficiency. 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 Electronically Signed: Randell Villagran MD at 20:22 EDT , Charges/Coding Visit Charges Inpatient E&M: 08419 Init Hosp L3
[2024-04-13] MEDS: Albuterol 2.5 MG/3 ML VIAL.NEB. INHALATION (19:17)
[2024-04-13] MEDS: Acetaminophen 500 MG Tablet 1000 MG PO (19:48)
--- NOTE | 2024-04-13 20:16 | EKG12_ITS ---
Test Reason : CP Blood Pressure : / mmHG Vent. Rate : 117 BPM Atrial Rate : 117 BPM P-R Int : 166 ms QRS Dur : 078 ms QT Int : 328 ms P-R-T Axes : 059 -10 108 degrees QTc Int : 457 ms Sinus tachycardia Inferior infarct (cited on or before 14-AUG-2022) ST & T wave abnormality, consider lateral ischemia Abnormal ECG When compared with ECG of 12-APR-2024 05:20, Premature atrial complexes are no longer Present Confirmed by AZAEL MARCUS, JESSICA ([id number]), editor at large HERNAN JACINTO ([id number]) on 04/14/2024 1:14:03 PM Referred By: SKYE Confirmed By:JESSICA ADDISON MD
--- NOTE | 2024-04-13 20:21 | NURSING ---
[facility] called and said pt was verbally abusive to them and then he complained of chest pain. . Resp called for ekg. medical officer psychiatry notifed that pt continues to verbally abuse staff
[2024-04-13] MEDS: Ondansetron 4 MG/2 ML Vial IV (20:38)
--- NOTE | 2024-04-13 20:42 | NURSING ---
vitals done, Pt said his chest pain is better now that he vomited. zofran given. sewage reticulation drafting officer into talk to pt.
[2024-04-13] MEDS: Atorvastatin Calcium 40 MG Tablet PO (22:16)
[2024-04-13 23:29] LABS: Bedside Glucose 270 mg/dL (74-106)
[2024-04-14] VITALS (10 sets, daily range): BP systolic 136–190; BP diastolic 69–104; PULSE 82–128; RESP 16–22; TEMP 36.7–37.8; O2SAT 88–95
[2024-04-14] MEDS: Vancomycin IV 1,000 MG/200 ML BAG 200 MG IV ×2 (03:22→19:57)
[2024-04-14] MEDS: Albuterol 2.5 MG/3 ML VIAL.NEB. INHALATION ×2 (05:39→16:06)
[2024-04-14 05:55] LABS: Absolute Lymphocyte Count 1.08 X10^3/uL (0.83-4.51); Absolute Neutrophil Count 7.5 X10^3/uL (2.0-7.7); Basophil# 0.04 X10^3/uL; Basophil% 0.4 % (0-1); Eosinophil# 0.19 X10^3/uL; Hematocrit 35.9 % (40-54); Hemoglobin 11.9 g/dL (13.0-16.5); Lymphocyte # 1.08 X10^3/ul (0.83-4.51); Lymphocyte % 11.2 % (19-41); Mean Corp Hgb Conc 33.1 g/dL (32-36); Mean Corpuscular Hgb 28.1 pg (27.0-32.0); Mean Corpuscular Volume 84.9 fL (80-94); Mean Platelet Vol. 9.6 fl (6.2-12.0); Monocyte# 0.67 X10^3/uL; NRBC Flagged by Analyzer 0 % (0-5); Neutrophil # 7.51 X10^3/uL (2.7-7.7); Neutrophil % 77.9 % (47-70); Platelet Count 255 K/mm3 (150-450); RBC Distribution Width CV 12.2 % (11.6-14.6); RBC Distribution Width SD 37.9 fl (35.1-43.9); Red Blood Count 4.23 M/mm3 (4.6-6.2); White Blood Count 9.6 K/mm3 (4.4-11.0)
[2024-04-14] MEDS: Acetaminophen 500 MG Tablet 1000 MG PO ×2 (06:18→12:32)
[2024-04-14] MEDS: Insulin Lispro 100 UNIT/ML INSULN.PEN SC ×4 (06:18→22:51)
[2024-04-14] MEDS: oxyCODONE 5 MG Tablet 10 MG PO ×2 (06:19→11:17)
[2024-04-14 07:04] LABS: Anion Gap 11 (5-15); BUN 14 mg/dL (7-18); BUN/Creat Ratio 11.9 RATIO (10-20); Calcium,Total 9.5 mg/dL (8.5-10.1); Chloride 96 mmol/L (98-107); Creatinine, Serum 1.18 mg/dL (0.70-1.30); EST Glomerular Filtration Rate 66 mL/min (>60); Est Glom Filt Rate - Afr Amer 80 mL/min (>60); Estimated Creatinine Clearance 68.64 ml/min; Glucose 291 mg/dL (74-106); Potassium 4.5 mmol/L (3.5-5.1); Sodium Level 131 mmol/L (136-145)
[2024-04-14 07:13] LABS: Bedside Glucose 284 mg/dL (74-106)
[2024-04-14] MEDS: Aspirin E.C. 81 MG Tablet PO (08:00)
[2024-04-14] MEDS: DULoxetine Hcl 20 MG Capsule PO (08:01)
[2024-04-14] MEDS: Ferrous Sulfate 325 MG Tablet PO (08:01)
--- NOTE | 2024-04-14 08:01 | PN_ITS ---
Subjective Subjective Patient was seen this morning for follow up on left foot, no f/c/n/v at this time, he is resting in bed. Objective Data Objective Data Vital Signs: Vital Signs Temp Pulse Resp BP Pulse Ox O2 Del Method 98.4 F 100 16 149/69 H 93 Room Air 04/14/24 03:17 04/14/24 05:39 04/14/24 05:39 04/14/24 03:17 04/14/24 03:17 04/14/24 03:29 Oxygen Delivery Method Room Air Weight: 91.8 kg Body Mass Index (BMI) 30.7 Intake & Output: Intake and Output for Last 24 Hours 04/12/24 04/13/24 04/14/24 23:59 23:59 23:59 Intake Total 1096.67 / 1096.67 2350 / 2350 1100 / 1100 Output Total 400 / 400 1999 / 2000 Balance 696.67 / 696.67 350 / 350 1100 / 1100 Lab / Micro Data 04/14/24 05:15 04/14/24 05:15 Labs: Laboratory Results - last 24 hr 04/13/24 11:38: POC Glucose 333 H 04/13/24 16:12: POC Glucose 302 H 04/13/24 22:10: POC Glucose 270 H 04/14/24 05:15: WBC 9.6, RBC 4.23 L, Hgb 11.9 L, Hct 35.9 L, MCV 84.9, MCH 28.1, MCHC 33.1, RDW Std Deviation 37.9, RDW Coeff of Divya 12.2, Plt Count 255, MPV 9.6, Immature Gran % (Auto) 1.500 H, Neut % (Auto) 77.9 H, Lymph % (Auto) 11.2 L , [place] % (Auto) 7.0, Eos % (Auto) 2.0, Baso % (Auto) 0.4, Absolute Neuts (auto) 7.5, Absolute Lymphs (auto) 1.08, Nucleated RBC % 0, Sodium 131 L, Potassium 4.5, Chloride 96 L, Carbon Dioxide 24.0, Anion Gap 11, BUN 14, Creatinine 1.18, Estim Creat Clear Calc 68.64, Est GFR (MDRD) Af Amer 80, Est GFR (MDRD) Non-Af 66, BUN/Creatinine Ratio 11.9, Glucose 291 H, Calcium 9.5 04/14/24 06:14: POC Glucose 284 H Micro: Microbiology 04/11/24 14:31 Blood Culture (Wb) - Anticubital Right Blood Culture - Preliminary No growth in 48 hours. 04/12/24 Unknown Tissue - Clearance Fragment Gram Stain - Final 04/12/24 Unknown Tissue - Clearance Fragment Wound Culture - Preliminary Gram Positive Cocci 04/12/24 Unknown Tissue - 5th Toe Gram Stain - Final 04/12/24 Unknown Tissue - 5th Toe Wound Culture - Preliminary Gram positive organism 04/11/24 19:20 Wound - Left Foot Gram Stain - Final 04/11/24 19:20 Wound - Left Foot Wound Culture - Final Staphylococcus aureus Radiography Diagnostic Testing: Radiology Impression Extremity Arterial Study 04/11/24 19:45 Interpretation Summary Right RACHEL 1.22, normal though may be artificially elevated. Doppler/PVR waveforms of the right leg mildly diminished. Left RACHEL 0.54, moderate arterial insufficiency. Doppler/PVR waveforms reveal infrapopliteal disease Ordering Physician: Ty Caba Referring Physician: Erika Montana Performed By: Humphrey Abreu, RVT Physical Exam Const alert, oriented x3 and no apparent distress Constitutional Narrative: Left foot s/p 5th ray debridement down to bone tissue is viable but there is residual cellulitis extending to the midfoot dorsally and plantarly no significant improvement in cellulitis, there is no necrosis, no fluctuance, no crepitus, no maloder, wound distal left 1st toe down to subc tissue, no acute ischemia to the left foot or ankle. No evidence of DVT bilateral. Assessment & Plan Assessment/Plan (1) Acute osteomyelitis of left foot: (2) Non-pressure chronic ulcer of other part of left foot with necrosis of bone: PLAN: Plan Evaluation performed. s/p left foot debridement, there is still significant cellulitis to left foot - MRI was ordered for further evaluation He is on IV antibiotics - ID on consult No weightbearing left foot Wound care left foot - Gauze packing and gauze dressing - keep clean, dry and intact at this time Hx of PAD - ordered new LEAS and arterial duplex studies for further evaluation - reviewed - vascular surgery on consult Podiatry will continue to follow
--- NOTE | 2024-04-14 08:02 | MRI_ITS ---
STUDY: MRI LEFT FOREFOOT WITHOUT CONTRAST REASON FOR EXAM: Male, 64 years old. Osteomyelitis and cellulitis TECHNIQUE: Standardized fat and water weighted pulse sequences were obtained in all 3 orthogonal planes. COMPARISON: April 12, 2024 x-ray FINDINGS: There is degenerative arthrosis of the metatarsophalangeal joint of the hallux. Normal tibial and fibular sesamoids, with normal sesamoids-first metatarsal articulations. Normal interphalangeal joint of the hallux. Normal proximal and distal phalanges of the great toe. Normal medial and lateral heads of the flexor hallucis brevis tendons. Normal flexor and extensor hallucis longus tendons. Normal second through fifth metatarsophalangeal (MTP) joints. Normal interphalangeal joints of the second through fifth toes. Normal proximal, middle and distal phalanges of the second through fifth toes. Normal first through fourth intermetatarsal spaces. Normal flexor and extensor tendons of the second through fifth toes. There is transmetatarsal indication of the fifth toe. Normal intrinsic muscles of the forefoot. There is postoperative change of the lateral soft tissues. MRI/Lower Ext/No Jt/w/o IMPRESSION: Postoperative change with amputation of the fifth toe. No abscess or fluid collection. Electronically Signed: Guilherme Rice MD at 20:41 EDT ,
[2024-04-14] MEDS: Metoprolol Tartrate 25 MG Tablet PO ×2 (08:05→22:51)
[2024-04-14] MEDS: Clopidogrel Bisulfate 75 MG Tablet PO (08:09)
[2024-04-14] MEDS: amLODIPine 10 MG Tablet PO (08:15)
[2024-04-14] MEDS: levoFLOXacin IV 750 MG/150 ML BAG 100 MG IV (08:41)
[2024-04-14] MEDS: 0.9% Normal Saline (250mL Bag) 250 ML 15 ML IV ×2 (08:43→16:45)
[2024-04-14] MEDS: 0.9% Saline Lock 10 ML Syringe IV ×2 (08:50→22:52)
[2024-04-14] MEDS: Ondansetron 4 MG/2 ML Vial IV ×2 (10:53→22:52)
[2024-04-14] MEDS: Insulin Glargine-YFGN 100 UNIT/ML Pen 25 UNIT SC (12:29)
--- NOTE | 2024-04-14 13:42 | PCM.PN.ID ---
Physical Exam Narrative Feeling ok, some nausea, no fever Const alert and no apparent distress General Appearance: cooperative Resp normal air movement and clear to auscultation bilaterally Cardio regular rate and regular rhythm GI soft to palpation, non-tender and non-distended Skin Skin Narrative: foot wrapped ID ID: Route of nutrition/ use of supplements: [] Nutritional Intake: [] IV Site: [] Hawley Catheter: [] Assessment & Plan Assessment/Plan (1) Acute osteomyelitis of left foot: PLAN: Taken to OR 04/12/[address] Caba for I&D. Wound cx with mssa. Will narrow abx to cefazolin and po flagyl, wrote for 6 week course, stop date with weekly labs, ID followup in 2-3 weeks. Will follow (2) Diabetes mellitus: QUALIFIERS: Diabetes mellitus type: type 2 Diabetes mellitus correction insulin use: with intermediate card tender use Diabetes mellitus complication status: with neurologic complications Diabetes mellitus complication detail: with polyneuropathy Qualified Code(s): E11.42 - Type 2 diabetes mellitus with diabetic polyneuropathy; Z79.4 - nursing home (current) use of insulin
--- NOTE | 2024-04-14 14:36 | PN.HOSP_ITS ---
Reason for Visit Reason for Visit: Left foot wound Subjective Subjective Patient reported he had some shortness of breath overnight which had subsequently improved with some breathing treatment however he was frustrated over the late in his getting a breathing treatment. Nursing stated he was yelling at them and satting 95% at the time and respiratory therapy came up as soon as they were able. He states he is not yet decided whether he will have any invention on his left leg. CTA with runoff has been ordered. Per discussion with Dr. Woods he would like a MRI done of the left foot due to ongoing erythema. Objective Data Objective Data Vital Signs: Vital Signs Temp Pulse Resp BP Pulse Ox O2 Del Method 98.1 F 82 16 136/81 H 93 Room Air 04/14/24 08:23 04/14/24 08:24 04/14/24 08:24 04/14/24 08:23 04/14/24 08:24 04/14/24 08:24 Oxygen Delivery Method Room Air Weight: 91.8 kg Body Mass Index (BMI) 30.7 Intake & Output: Intake and Output for Last 24 Hours 04/12/24 04/13/24 04/14/24 23:59 23:59 23:59 Intake Total 1096.67 / 1096.67 2350 / 2350 2156 / 2156 Output Total 400 / 400 1999 / 1999 Balance 696.67 / 696.67 350 / 350 215 / 2156 Lab / Micro Data 04/14/24 05:15 04/14/24 05:15 Labs: Laboratory Results - last 24 hr 04/13/24 16:12: POC Glucose 302 H 04/13/24 22:10: POC Glucose 270 H 04/14/24 05:15: WBC 9.6, RBC 4.23 L, Hgb 11.9 L, Hct 35.9 L, MCV 84.9, MCH 28.1, MCHC 33.1, RDW Std Deviation 37.9, RDW Coeff of Divya 12.2, Plt Count 255, MPV 9.6, Immature Gran % (Auto) 1.500 H, Neut % (Auto) 77.9 H, Lymph % (Auto) 11.2 L , [place] % (Auto) 7.0, Eos % (Auto) 2.0, Baso % (Auto) 0.4, Absolute Neuts (auto) 7.5, Absolute Lymphs (auto) 1.08, Nucleated RBC % 0, Sodium 131 L, Potassium 4.5, Chloride 96 L, Carbon Dioxide 24.0, Anion Gap 11, BUN 14, Creatinine 1.18, Estim Creat Clear Calc 68.64, Est GFR (MDRD) Af Amer 80, Est GFR (MDRD) Non-Af 66, BUN/Creatinine Ratio 11.9, Glucose 291 H, Calcium 9.5 04/14/24 06:14: POC Glucose 284 H Micro: Microbiology 04/12/24 Unknown Tissue - 5th Toe Gram Stain - Final 04/12/24 Unknown Tissue - 5th Toe Wound Culture - Preliminary Gram Positive Cocci Gram Positive Cocci#2 04/12/24 Unknown Tissue - 5th Toe Anaerobic Culture - Preliminary Checking for anaerobes, further studies to follow. 04/11/24 19:20 Wound - Left Foot Gram Stain - Final 04/11/24 19:20 Wound - Left Foot Wound Culture - Final Staphylococcus aureus 04/11/24 19:20 Wound - Left Foot Anaerobic Culture - Preliminary Checking for anaerobes, further studies to follow. 04/12/24 Unknown Tissue - Clearance Fragment Gram Stain - Final 04/12/24 Unknown Tissue - Clearance Fragment Wound Culture - Final Staphylococcus aureus 04/12/24 Unknown Tissue - Clearance Fragment Anaerobic Culture - Preliminary 04/11/24 14:31 Blood Culture (Wb) - Anticubital Right Blood Culture - Preliminary No growth in 48 hours. Physical Exam Const alert, oriented x3, no apparent distress and well nourished; Negative for average body habitus or healthy appearing Constitutional Narrative: Obese, middle-aged, white male, sitting up in bed, appears comfortable, watching television, less agitated today, appears chronically ill but not acutely toxic HEENT head/scalp atraumatic, moist oral mucous membranes and oropharynx normal HEENT Narrative: Mallampati 3, no thrush Resp normal respiratory effort, no retractions, no use of accessory muscles and clear to auscultation bilaterally Auscultation: Negative for rales, rhonchi or wheezes Cardio regular rate, regular rhythm, S1 normal heart sound, S2 normal heart sound, no murmurs, no rub, no gallops and no clicks GI normal to inspection, nondistended, normoactive bowel sounds, soft to palpation and non-tender GI Narrative: Protuberant abdomen Extremity Extremity Narrative: Left lower extremity with postoperative dressing in place, cap refill delayed, pedal pulses on right lower extremity are 1+ Skin Skin Narrative: Bilateral lower extremity skin changes consistent with venous stasis and vascular disease, imaging from dressing change reviewed and there is ongoing erythema Neuro oriented x3, moves all extremities and no focal motor deficits Neuro Narrative: Decreased sensation bilateral feet Speech: speech normal Psych Psych Narrative: Still mildly agitated but less argumentative and agitated than yesterday Assessment & Plan Assessment/Plan (1) Non-pressure chronic ulcer of other part of left foot with necrosis of bone: (2) Acute osteomyelitis of left foot: PLAN: Plan Left fifth digit osteomyelitis/cellulitis right great toe -Postop day 2 debridement of nonviable and infected/necrotic tissue with fifth toe resection -Still with ongoing erythema so MRI has been ordered and pending -Microbiology still showing gram-positive cocci with Staph aureus on culture appears to be MSSA -Awaiting more finalized cultures -Blood cultures are no growth at 48 hours--> awaiting finalized results -Continue Levaquin, Flagyl, vancomycin -Infectious disease and podiatry are following-appreciate input -Wound care nurses following-appreciate assistance CKD stage IIIa -Baseline serum creatinine is between 1 and 1.2 -Serum creatinine elevated from baseline but not consistent with GRZEGORZ on presentation and now resolved -Monitor closely with antibiotic use -BMP in a.m. [id number] -Hemoglobin A1c in 7.9 -Hold home oral agents -AM fasting blood sugars are markedly elevated at 291 -With fasting blood sugars remaining markedly elevated will increase Lantus from 15-25 -Continue sliding scale -Accu-Cheks before meals and at bedtime -Cardiac/carb controlled diet Chronic microcytic anemia -Hemoglobin stable -Continue to monitor CBC Peripheral vascular disease -Has been following with Dr. Wells -Patient reports recent revascularization but unable to say exactly when this occurred--> thinks it was about 6 months ago -Minimal bleeding during surgical intervention for osteomyelitis -Vascular surgery, Dr. Dickens, following with plans for probable intervention on depending on results of CT runoff -Continue aspirin 81 mg daily -Continue Plavix 81 mg daily -Vascular studies pending per vascular surgery CAD/essential HTN/HPL -History of CABG x 3 08/21/2022 -Continue aspirin and Plavix -Blood pressures are overall improved however not quite yet at goal -Will continue to monitor with changes and if remains elevated above 130/80 tomorrow will add lisinopril -Continue metoprolol 25 mg daily -Continue home statin -Patient has not been compliant in states he was going to be started on injection medication for his cholesterol however insurance denied it and he never restarted his pills as he did not have any more at home and did not call and ask for more History of asthma -Continue as needed albuterol inhaler Anxiety/depression -Continue home duloxetine Obesity -Recommend weight loss -BMI 30.8 -Complicate treatment, prognosis, outcomes DVT prophylaxis -Continue enoxaparin 40 daily CODE STATUS -Full as verified Charges/Coding Visit Charges Inpatient E&M: 01801 Subs Hosp L2
--- NOTE | 2024-04-14 14:55 | CASEMGMT ---
Addendum entered by Paola Laws 04/14/24 16:04: TC to Amanda at [facility], referral made for pt. She will review and notify REJI PHILLIPS in the morning of decision to accept. Original Note: REJI PHILLIPS received rx for IV atb. REJI PHILLIPS into pt room, pt lying in bed in no distress. Pt states he has done IV atb prior at home and he feels comfortable with this. He states he has had [facility] in the past and prefers to have them again. He denies need for HH list unless they are not able to take him as a patient. Discussed options for infusion companies. Provided pt a verbal list of options for infusion companies, pt chose [facility]. DC assistant director of public works will send referral to [facility].
--- NOTE | 2024-04-14 15:30 | CASEMGMT ---
Discharge Planning Infusion referral sent to I. Justine Hager DC Planning Asst.
--- NOTE | 2024-04-14 15:33 | NURSING ---
Pt stated that his 86 year old mother whom was present in the room helped him get to the bathroom. Pointed to the bathroom. This RN had a 5 minutes conversation with both Mr. Garcia and his mother about not getting oob or the chair without assistance from staff here at the hospital and no one else espically his mother and the importance of why. Both Mr. Garcia and his mother agreed not to get up on his own or assistance from his mom. This RN then went back in the room about 30 min later and noticed pt Rt leg was half out of the bed like he had recently gotten out of bed and didnt get himself all the way back in bed. I asked if he had recently been up and his Mother responded with yes Pt and Mother admitted he had to have a Bowel movement and did not want to wait for assistance. When I put the call light on I need help right away and it takes them to long to come help me. Pts mother states that He really had to go poop, he didnt want to poop the bed. This was after I had explained the importance of him not getting up without staff assistance and both seemed to agree. This RN then explained that the Bed Exit alarm was going to be put on for the rest of the time the pt is here for his safety. His Mother stated, We wont do it again, he just had to go really bad. Despite her statement, this RN still applied Bed Exit Alarm on.
--- NOTE | 2024-04-14 16:06 | CPS ---
nursing gave patient the breathing treatment
--- NOTE | 2024-04-14 16:12 | EKG12_ITS ---
Test Reason : CP Blood Pressure : / mmHG Vent. Rate : 112 BPM Atrial Rate : 112 BPM P-R Int : 184 ms QRS Dur : 080 ms QT Int : 318 ms P-R-T Axes : 064 -01 132 degrees QTc Int : [address] abnormality, possible lateral subendocardial injury Abnormal ECG No previous ECGs available Confirmed by AZAEL MARCUS, JESSICA ([id number]), web content editor NEELIMA NAM ([id number]) on 04/16/2024 10:46:33 AM Referred By: Confirmed By:JESSICA ADDISON MD
--- NOTE | 2024-04-14 16:13 | NURSING ---
Nurse c/o chest pain, sternal area. Intensifying when coughing. O2 applied. VS taken. BP elevated, tachycardic. Aerosol breathing tx given. Stat EKG order and completed at this time, will notify Dr. Ozuna.
[2024-04-14] MEDS: Cefazolin 2 GM in 0.9% Normal Saline (100mL Bag) 100 ML IV (16:44)
[2024-04-14] MEDS: metroNIDAZOLE 500 MG Tablet PO ×2 (16:58→22:51)
[2024-04-14 17:36] LABS: Bedside Glucose 310 mg/dL (74-106)
--- NOTE | 2024-04-14 17:54 | NURSING ---
PT down in MRI, Will get chest x-ray afterwards d/t the need for cont. o2 and increased SOB.
--- NOTE | 2024-04-14 18:30 | RAD_ITS ---
INDICATION: Shortness of breath EXAMINATION/TECHNIQUE: X-RAY - portable upright AP chest x-ray COMPARISON: 08/13/2022 FINDINGS: LINES/DEVICES: None. LUNGS: Patchy airspace opacity partially silhouettes the left heart border. No consolidation or pleural effusion. MEDIASTINUM AND CARDIOVASCULAR STRUCTURES: Cardiac silhouette grossly stable within upper normal limits. Interval CABG. BONES AND SOFT TISSUES: No acute changes. RAD/Chest 1 View IMPRESSION: Findings suspicious for lingular infiltrate and pneumonia. Recommend short-term follow-up to complete resolution. Electronically Signed: Randell Villagran MD at 19:40 EDT ,
--- NOTE | 2024-04-14 18:50 | PCM.HOSP.N ---
Hospitalist Note Called by nursing for some chest discomfort that was reported to be relieved by albuterol. Added protonix and GI cocktail as well since pt was having intermittent dyspepsia. Repeat vital showed new hypoxia. Abx narrowed on 04/12 .CXR, BNP and cycle cardiac enzymes ordered. EKG stable with no changes from admission. CXR shows R infiltrate. Transition back to vanc and zosyn. Continue metronidazole. Add scheduled duonebs and sputum cx. Lasix IVP x 1 dose. Repeat CXR in am. Add Mucinex.
[2024-04-14] MEDS: Pantoprazole Sodium 40 MG Tablet PO (18:51)
--- NOTE | 2024-04-14 19:04 | PCM.RX.CS ---
Consult Antibiotic Management Pharmacy has been consulted to manage selected antibiotic: Vancomycin Type of Intervention Type of Consult: New start Labs Labs: Sodium 131 mmol/L (136-145) L 04/14/24 05:15 Potassium 4.5 mmol/L (3.5-5.1) 04/14/24 05:15 Chloride 96 mmol/L (98-107) L 04/14/24 05:15 Carbon Dioxide 24.0 mmol/L (21.0-32.0) 04/14/24 05:15 Anion Gap 11 (5-15) 04/14/24 05:15 BUN 14 mg/dL (7-18) 04/14/24 05:15 Creatinine 1.18 mg/dL (0.70-1.30) 04/14/24 05:15 Est GFR (MDRD) Af Amer 80 mL/min (>60) 04/14/24 05:15 Est GFR (MDRD) Non-Af 66 mL/min (>60) 04/14/24 05:15 BUN/Creatinine Ratio 11.9 RATIO (10-20) 04/14/24 05:15 Glucose 291 mg/dL (74-106) H 04/14/24 05:15 Microbiology Microbiology: Microbiology 04/12/24 Unknown Tissue - 5th Toe Gram Stain - Final 04/12/24 Unknown Tissue - 5th Toe Wound Culture - Preliminary Gram Positive Cocci Gram Positive Cocci#2 04/12/24 Unknown Tissue - 5th Toe Anaerobic Culture - Preliminary Checking for anaerobes, further studies to follow. 04/11/24 19:20 Wound - Left Foot Gram Stain - Final 04/11/24 19:20 Wound - Left Foot Wound Culture - Final Staphylococcus aureus 04/11/24 19:20 Wound - Left Foot Anaerobic Culture - Preliminary Checking for anaerobes, further studies to follow. 04/12/24 Unknown Tissue - Clearance Fragment Gram Stain - Final 04/12/24 Unknown Tissue - Clearance Fragment Wound Culture - Final Staphylococcus aureus 04/12/24 Unknown Tissue - Clearance Fragment Anaerobic Culture - Preliminary 04/11/24 14:31 Blood Culture (Wb) - Anticubital Right Blood Culture - Preliminary No growth in 48 hours. Goal Trough Goal Trough: 15-20 mcg/mL Pharmacy Plan for Drug Dosing Pharmacy Plan for Drug Dosing: NEW START IV VANCOMYCIN Consulting Physician: Dr. Staci Ozuna Indication: SSTI Goal Trough: 15-20 SrCr: 1.18 CrCl: 68 mL/min Comments: Patient was previously on vancomycin 1g IV Q12hr- dc'd this afternoon. Last dose of medication was 04/14 @0322 Vancomycin Dose: Will resume previous vancomycin dosing of 1000mg IV Q12hr. Since it has been >12hrs since last dose, will give the patient 2 doses prior to drawing trough. Patient has not had a trough on this dose yet- had delay in dosing d/t need for PICC line placement previously. Will start 1000mg IV Q12hr 04/14 @1900 Pending Level: 04/15/24 @1830 Pharmacy Service will continue to monitor and adjust dosing as required.
[2024-04-14] MEDS: Ipratropium/Albuterol Sulfate 3 ML AMPUL.NEB INHALATION (19:10)
--- NOTE | 2024-04-14 19:12 | PN.SURG_ITS ---
Subjective Subjective Mr. Garcia was seen this evening resting in bed. He complains of some SOB, he had CXR showing R infiltrate so he was restarted on vanc/zosyn. Objective Data Objective Data Vital Signs: Vital Signs Temp Pulse Resp BP Pulse Ox O2 Del Method O2 Flow Rate 100.0 F H 119 H 20 H 171/92 H 93 Nasal Cannula 3.5 04/14/24 17:27 04/14/24 17:27 04/14/24 17:27 04/14/24 17:27 04/14/24 17:27 04/14/24 17:27 04/14/24 17:27 Oxygen Flow Rate (L/min) 3.5 Oxygen Delivery Method Nasal Cannula Weight: 202 lb 6.15 oz Body Mass Index (BMI) 30.7 Intake & Output: Intake and Output for Last 24 Hours 04/12/24 04/13/24 04/14/24 23:59 23:59 23:59 Intake Total 1096.67 / 1096.67 2350 / 2350 2303.0 / 2303.0 Output Total 400 / 400 1999 / 1999 Balance 696.67 / 696.67 350 / 350 2303.0 / 2303.0 Lab / Micro Data 04/14/24 05:15 04/14/24 05:15 Labs: Laboratory Results - last 24 hr 04/13/24 22:10: POC Glucose 270 H 04/14/24 05:15: WBC 9.6, RBC 4.23 L, Hgb 11.9 L, Hct 35.9 L, MCV 84.9, MCH 28.1, MCHC 33.1, RDW Std Deviation 37.9, RDW Coeff of Divya 12.2, Plt Count 255, MPV 9.6, Immature Gran % (Auto) 1.500 H, Neut % (Auto) 77.9 H, Lymph % (Auto) 11.2 L , [place] % (Auto) 7.0, Eos % (Auto) 2.0, Baso % (Auto) 0.4, Absolute Neuts (auto) 7.5, Absolute Lymphs (auto) 1.08, Nucleated RBC % 0, Sodium 131 L, Potassium 4.5, Chloride 96 L, Carbon Dioxide 24.0, Anion Gap 11, BUN 14, Creatinine 1.18, Estim Creat Clear Calc 68.64, Est GFR (MDRD) Af Amer 80, Est GFR (MDRD) Non-Af 66, BUN/Creatinine Ratio 11.9, Glucose 291 H, Calcium 9.5, B-Natriuretic Peptide Cancelled 04/14/24 06:14: POC Glucose 284 H 04/14/24 17:13: POC Glucose 310 H Micro: Microbiology 04/12/24 Unknown Tissue - 5th Toe Gram Stain - Final 04/12/24 Unknown Tissue - 5th Toe Wound Culture - Preliminary Gram Positive Cocci Gram Positive Cocci#2 04/12/24 Unknown Tissue - 5th Toe Anaerobic Culture - Preliminary Checking for anaerobes, further studies to follow. 04/11/24 19:20 Wound - Left Foot Gram Stain - Final 04/11/24 19:20 Wound - Left Foot Wound Culture - Final Staphylococcus aureus 04/11/24 19:20 Wound - Left Foot Anaerobic Culture - Preliminary Checking for anaerobes, further studies to follow. 04/12/24 Unknown Tissue - Clearance Fragment Gram Stain - Final 04/12/24 Unknown Tissue - Clearance Fragment Wound Culture - Final Staphylococcus aureus 04/12/24 Unknown Tissue - Clearance Fragment Anaerobic Culture - Preliminary 04/11/24 14:31 Blood Culture (Wb) - Anticubital Right Blood Culture - Preliminary No growth in 48 hours. Physical Exam Const alert, oriented x3, no apparent distress and healthy appearing General Appearance: cooperative; Negative for combative or lethargic Orientation / Consciousness: awake Exam Limitations: no limitations HEENT Head and Scalp: normocephalic and atraumatic Eyes EOMs intact bilaterally General Eye: normal appearance of both eyes Neck full ROM, no lymphadenopathy and thyroid normal General: trachea midline; Negative for lymphadenopathy or tenderness Thyroid: thyroid normal Resp normal respiratory effort and no use of accessory muscles Effort and Inspection: Negative for labored, stridor or audible wheezes Cardio regular rate and regular rhythm Peripheral Pulses: brachial pulses present, radial pulses present and femoral pulses present Extremity full ROM and no clubbing, cyanosis or edema Skin no rashes or lesions noted Neuro oriented x3, CN's II-XII intact bilaterally, no focal motor deficits and no sensory deficits noted Psych thought process normal, cooperative, affect normal, speech normal and activity/motor behavior normal Assessment & Plan Assessment/Plan (1) Non-pressure chronic ulcer of other part of left foot with necrosis of bone: PLAN: CTA revealed patent prior interventions but significant distal disease in the tibial vessels. Recommend angiogram with possible intervention. The procedure details were discussed with the patient and he is agreeable to proceed. He is scheduled for LLE angiogram in the laboratory animal care veterinarian tomorrow around 1300. Charges/Coding Visit Charges Inpatient E&M: 06527 Subs Hosp L1
[2024-04-14 19:24] LABS: BNP,B-Type NATRIURETIC PEPTIDE 108.1 pg/mL (0-100)
[2024-04-14] MEDS: Furosemide 40 MG/4 ML Vial IV (19:41)
[2024-04-14 19:42] LABS: Troponin-I HS 336 pg/mL (3.0-78.0)
[2024-04-14] MEDS: Enoxaparin 40 MG/0.4 ML Syringe SC (19:43)
[2024-04-14] MEDS: Mag /Aluminum/Simeth WCH UDC 30 ML ORAL.SUSP PO (19:45)
[2024-04-14] MEDS: Lidocaine 2% Viscous15 ML UDC 15 ML PO (19:45)
--- NOTE | 2024-04-14 20:16 | PN.HOSP_ITS ---
Hospitalist Note Patient during the day with episode of chest discomfort with EKG obtained and per discussion with staff was reviewed by hospitalist physician and noted to be sinus tachycardia with no acute evidence of ischemia at that time. Cardiac troponins were ordered and his initial cardiac troponin has now come back at 336 at 1854. Given the significant elevation with underlying cardiac disease we will transition to PCU, will maintain on aspirin and Plavix, will continue to trend cardiac enzymes and if repeat is further elevated will transition to h eparin drip from [facility] if necessary if Podiatry is amenable, will continue patient home metoprolol and statin regimen, echocardiogram requested, mag pending, FLP pending. Discussed with Dr. Ozuna.
[2024-04-14 20:30] LABS: Bedside Glucose 287 mg/dL (74-106)
--- NOTE | 2024-04-14 21:00 | NURSING ---
Pt transferred from Med Surg floor to PCU floor. This nurse resumed care of patient on PCU floor at 2100.
[2024-04-14 21:03] LABS: Magnesium 1.5 mg/dL (1.6-2.6)
--- NOTE | 2024-04-14 21:06 | NURSING ---
193: change of shift update. pt continues to c/o chest pain, currently rcvng Lasix 40mg, lovenox & GI cocktail per new order rcvd. Troponin result noted at 336. CXR =infiltrate/pne. EKG =stach. pt current vitals 136/81, 130, 16, 94% 4l n/c. pt updated regarding new order to transfer to PCU 122.
--- NOTE | 2024-04-14 21:20 | ECHOCS_ITS ---
Reason For Study: NSTEMI Procedure This was a 2D Doppler, Color Flow transthoracic echocardiogram. The study was technically difficult. Exam performed portable in patient room. Left Ventricle Normal LV size. The left ventricular ejection fraction is 55 %. Stage 1 diastolic dysfunction. No regional wall motion abnormalities noted. Right Ventricle Normal RV size. Normal systolic function. Atria Normal left atrium. Normal right atrium. Mitral Valve There is mild mitral annular calcification. Tricuspid Valve Normal tricuspid valve. Aortic Valve Normal aortic valve. Pulmonic Valve Normal pulmonic valve. Great Vessels Normal aortic root. Pericardium/Pleural No pericardial effusion. Medication Diluted definity 2.5ml given slow IV push to enhance endocardial definition. MMode/2D Measurements & Calculations LVIDd: 4.9 cm IVSd: 1.1 cm LVOT diam: 2.0 cm LVIDs: 3.6 cm LVPWd: 1.2 cm RVDd: 3.7 cm FS: 25.3 % LVOT area: 3.0 cm2 Ao root diam: 3.1 cm LAV(MOD-bp): 43.4 ml LVAd ap4: 30.7 cm2 LAV(MOD-bp) Indexed: 21.2 ml/m2 LVLd ap4: 7.9 cm LAV(MOD-sp2): 40.4 ml EDV(MOD-sp4): 99.2 ml LAV(MOD-sp4): 46.1 ml EDV(sp4-el): 101.5 ml LVAs ap4: 21.5 cm2 LVLs ap4: 7.8 cm ESV(MOD-sp4): 48.4 ml ESV(sp4-el): 50.2 ml EF(MOD-sp4): 51.2 % EF(sp4-el): 50.5 % SV(MOD-sp4): 50.8 ml SV(sp4-el): 51.3 ml LA A4 area: 18.3 cm2 LA dimension(2D): 3.9 cm RA A4 area: 18.8 cm2 TAPSE: 1.5 cm Time Measurements MV dec time: 0.17 sec Doppler Measurements & Calculations MV E max roc: 73.0 cm/sec Lat Peak E' Roc: 10.8 cm/sec Med Peak E' Roc: 7.4 cm/sec MV A max roc: 78.0 cm/sec E/E' lat: 6.8 E/E' med: 9.8 MV E/A: 0.94 Ao V2 max: 227.7 cm/sec LV V1 max: 115.4 cm/sec SV(LVOT): 72.4 ml Ao max P.8 mmHg LV V1 max P.4 mmHg Ao V2 mean: 167.0 cm/sec LV V1 mean P.9 mmHg Ao mean P.3 mmHg LV V1 mean: 79.4 cm/sec Ao V2 VTI: 43.6 cm LV V1 VTI: 23.9 cm AV (velocity ratio): 0.55 ESTHER(I,D): 1.7 cm2 ESTHER(V,D): 1.5 cm2 PA V2 max: 130.0 cm/sec ECHO/Echo Complete W/ Contrast Interpretation Summary The left ventricular ejection fraction is 55 %. Stage 1 diastolic dysfunction. Normal LV size. Structurally normal valves. Ordering Physician: Katia Carrizales Referring Physician: EMMA RUSSO Performed By: Chanda Madden RDCS
[2024-04-14 21:51] LABS: Troponin-I HS 414 pg/mL (3.0-78.0)
[2024-04-14] MEDS: Piperacil/Tazobactam 3.375 GM in 0.9% Normal Saline (50mL MB+) 50 ML IV (21:51)
[2024-04-14] MEDS: guaiFENesin 1,200 MG Tablet 1200 MG PO (22:51)
[2024-04-14] MEDS: Atorvastatin Calcium 40 MG Tablet PO (22:52)
[2024-04-15] VITALS (20 sets, daily range): BP systolic 103–163; BP diastolic 61–88; PULSE 81–108; RESP 18–20; TEMP 36.7–37.5; O2SAT 92–98
[2024-04-15 00:03] LABS: Bedside Glucose 356 mg/dL (74-106)
[2024-04-15 01:16] LABS: Troponin-I HS 3182 pg/mL (3.0-78.0)
[2024-04-15 03:03] LABS: Absolute Neutrophil Count 7.1 X10^3/uL (2.0-7.7); Basophil# 0.03 X10^3/uL; Basophil% 0.3 % (0-1); Eosinophil# 0.01 X10^3/uL; Eosinophils% 0.1 % (0-5); Hematocrit 33.4 % (40-54); Hemoglobin 11.2 g/dL (13.0-16.5); Lymphocyte % 8.1 % (19-41); Mean Corp Hgb Conc 33.5 g/dL (32-36); Mean Corpuscular Hgb 28.1 pg (27.0-32.0); Mean Corpuscular Volume 83.9 fL (80-94); Mean Platelet Vol. 9.1 fl (6.2-12.0); Monocyte# 0.69 X10^3/uL; NRBC Flagged by Analyzer 0.2 % (0-5); Neutrophil # 7.06 X10^3/uL (2.7-7.7); Neutrophil % 81.7 % (47-70); Platelet Count 251 K/mm3 (150-450); RBC Distribution Width CV 12.4 % (11.6-14.6); RBC Distribution Width SD 37.8 fl (35.1-43.9); Red Blood Count 3.98 M/mm3 (4.6-6.2); White Blood Count 8.7 K/mm3 (4.4-11.0)
[2024-04-15 03:11] LABS: International Normalized Ratio 1.1; Prothrombin Time (Protime)PT. 14.3 SECONDS (11.7-14.9)
[2024-04-15 03:12] LABS: Partial Thromboplast Time 31.2 Seconds (24.1-36.2)
[2024-04-15 03:19] LABS: Anion Gap 9 (5-15); BUN 15 mg/dL (7-18); BUN/Creat Ratio 10.4 RATIO (10-20); Calcium,Total 9.5 mg/dL (8.5-10.1); Chloride 90 mmol/L (98-107); Cholesterol 166 mg/dL (200); Creatinine, Serum 1.44 mg/dL (0.70-1.30); EST Glomerular Filtration Rate 52 mL/min (>60); Est Glom Filt Rate - Afr Amer 63 mL/min (>60); Estimated Creatinine Clearance 56.25 ml/min; Glucose 312 mg/dL (74-106); High Density Lipoprotein 33 mg/dL; Potassium 3.8 mmol/L (3.5-5.1); Sodium Level 128 mmol/L (136-145); Triglycerides 163 mg/dL; Very Low Density Lipoprotein 33 mg/dL (5-40)
[2024-04-15] MEDS: HEPARIN/D5w 25,000 UNITS 25,000 UNITS/250 ML IV.SOLN. 10 UNITS CONT INF (03:50)
[2024-04-15] MEDS: Heparin Injection (Vial) 5,000 UNIT/ML VIAL 4000 UNIT IV (03:51)
--- NOTE | 2024-04-15 05:55 | EKG12_ITS ---
Test Reason : AM EKG Blood Pressure : / mmHG Vent. Rate : 096 BPM Atrial Rate : 096 BPM P-R Int : 154 ms QRS Dur : 076 ms QT Int : 340 ms P-R-T Axes : 053 004 135 degrees QTc Int : 429 ms Normal sinus rhythm Inferior infarct (cited on or before 14-AUG-2022) ST & T wave abnormality, consider anterolateral ischemia Abnormal ECG Confirmed by AZAEL MARCUS, JESSICA ([id number]), associate editor NEELIMA NAM ([id number]) on 04/16/2024 10:45:06 AM Referred By: Confirmed By:JESSICA ADDISON MD
--- NOTE | 2024-04-15 05:55 | RAD_ITS ---
EXAM: XR CHEST, 1 VIEW CLINICAL INDICATION: Pna Pna TECHNIQUE: Frontal view of the chest. COMPARISON: Chest x-ray 04/14/2024. FINDINGS: LUNGS AND PLEURAL SPACES: The lungs are underexpanded. There is no demonstrated pulmonary infiltrate. No pneumothorax. No effusion. HEART: The heart is borderline in size. MEDIASTINUM: Central airways and mediastinal contour are unremarkable. BONES/JOINTS: There are sternotomy wires. No acute fracture. SOFT TISSUES: Unremarkable. RAD/Chest 1 View (Portable) IMPRESSION: Limited exam due to shallow inspiration and lordotic positioning. No evidence for acute cardiopulmonary pathology. Electronically Signed: Juan Montana MD at 6:21 EDT Reading Location ID and State: [facility] / [place] , Service support ,
[2024-04-15 06:26] LABS: Troponin-I HS 5140 pg/mL (3.0-78.0)
[2024-04-15 06:49] LABS: Bedside Glucose 306 mg/dL (74-106)
[2024-04-15] MEDS: Piperacil/Tazobactam 3.375 GM in 0.9% Normal Saline (50mL MB+) 50 ML IV ×3 (06:54→21:38)
[2024-04-15] MEDS: Ipratropium/Albuterol Sulfate 3 ML AMPUL.NEB INHALATION ×3 (07:26→19:58)
[2024-04-15] MEDS: oxyCODONE 5 MG Tablet 10 MG PO ×3 (07:51→23:47)
[2024-04-15] MEDS: Insulin Lispro 100 UNIT/ML INSULN.PEN SC ×4 (07:51→21:37)
[2024-04-15] MEDS: Vancomycin IV 1,000 MG/200 ML BAG 200 MG IV (07:51)
[2024-04-15] MEDS: metroNIDAZOLE 500 MG Tablet PO (07:52)
--- NOTE | 2024-04-15 08:16 | PCM.CONS.C ---
Assessment & Plan Assessment/Plan (1) NSTEMI (non-ST elevated myocardial infarction): (2) History of coronary artery bypass graft x 3: (3) Essential hypertension: (4) HLD (hyperlipidemia): HPI Consult Data Date of Consult: 04/15/24 HPI Narrative HPI Narrative: ROSETTA STEWART, is a 64 M who presents with left foot pain and is scheduled to have left foot intervention. He said that when he got to the emergency room he had complained of some chest heaviness. He has a history of hypertension, diabetes, coronary artery bypass surgery x 3 in August 2022 at [facility]. He says that he has had somewhat spotty medical follow-up. He had not had this chest discomfort before he denies any dizziness or diaphoresis near syncope or syncope. 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 Type 2 diabetes mellitus with foot ulcer Other specified peripheral vascular diseases Osteomyelitis PAD (peripheral artery disease) Delayed wound healing Hallux limitus of right foot Anxiety Depression Myocardial infarct Hallux limit[place] of right foot Type 2 diabetes mellitus with diabetic polyneuropathy Toe infection Heart disease HTN (hypertension) Diabetes mellitus CAD (coronary artery disease) DM2 (diabetes mellitus, type 2) Asthma Home Medications ?Medication ?Instructions ?Recorded ?Last Taken ?Type albuterol sulfate 90 mcg/actuation 1 - 2 puff inhalation Q4H PRN PRN 09/17/20 Unknown History aerosol inhaler Wheezing clopidogrel 75 mg tablet 75 mg PO DAILY bld thinner 09/17/20 12/10/21 History fluticasone propionate 50 2 puff IH DAILY breathing 09/17/20 11/01/21 History mcg/actuation blister powder for inhalation acetaminophen 500 mg tablet 1,000 mg PO Q6H PRN pain 08/29/22 Unknown History ascorbic acid (vitamin C) 500 mg 500 mg PO DAILY . 08/29/22 Unknown History tablet aspirin 81 mg tablet,delayed 81 mg PO DAILY thinner 08/29/22 Unknown History release (Adult Low Dose Aspirin) empagliflozin 25 mg tablet 25 mg PO DAILY . 08/29/22 Unknown History ezetimibe 10 mg tablet (Zetia) 10 mg PO DAILY . 08/29/22 Unknown History ferrous sulfate 325 mg (65 mg 325 mg PO DAILY . 08/29/22 Unknown History iron) tablet,delayed release fluticasone propionate 50 1 spray intranasal DAILY . 08/29/22 Unknown History mcg/actuation nasal spray,suspension (Allergy Relief (fluticasone)) folic acid 1 mg tablet 1 mg PO DAILY 08/29/22 Unknown History furosemide 20 mg tablet 20 mg PO DAILY . 08/29/22 Unknown History gabapentin 100 mg capsule 200 mg PO BID 08/29/22 Unknown History insulin aspart U-100 100 unit/mL 12 unit subcut TID 08/29/22 Unknown History (3 mL) subcutaneous pen (Novolog FlexPen U-100 Insulin aspart) lidocaine 4 % topical patch 1 patch topical BID PRN 08/29/22 Unknown History (Salonpas (lidocaine)) magnesium oxide 400 mg PO DAILY 08/29/22 Unknown History melatonin 3 mg tablet 3 mg PO HS PRN 08/29/22 Unknown History metformin 500 mg tablet 500 mg PO BID 08/29/22 Unknown History metoprolol tartrate 25 mg tablet 25 mg PO BID bp 08/29/22 Unknown History nitroglycerin 0.4 mg sublingual 0.4 mg sublingual Q5-15M PRN 08/29/22 Unknown History tablet potassium chloride 10 mEq 10 meq PO DAILY 08/29/22 Unknown History tablet,extended release rosuvastatin 20 mg tablet 20 mg PO QHS 08/29/22 Unknown History sertraline 100 mg tablet 100 mg PO DAILY 08/29/22 Unknown History sitagliptin phosphate 100 mg 100 mg PO DAILY 08/29/22 Unknown History tablet (Januvia) tramadol 50 mg tablet 50 mg PO BID PRN 08/29/22 Unknown History amlodipine 5 mg tablet 5 mg PO DAILY BP 04/11/24 Unknown History duloxetine 20 mg capsule,delayed 20 mg PO DAILY depression 04/11/24 Unknown History release glimepiride 4 mg tablet 8 mg PO BID DM 04/11/24 Unknown History metformin 500 mg tablet,extended 1,000 mg PO BID DM 04/11/24 Unknown History release 24 hr cefazolin 2 gram intravenous 2 g IV Q8H 40 days 04/14/24 Unknown Rx solution metronidazole 500 mg tablet 500 mg PO TID 40 days #120 tabs 04/14/24 Unknown Rx Allergy/AdvReac Type Severity Reaction Status Date / Time No Known Allergies Allergy Verified 04/11/24 12:48 Family History Mother Diabetes Hypertension Father Diabetes Hypertension Surgical History History of coronary artery bypass graft x 3 (~08/21/22) Status post right foot surgery S/P peripheral artery angioplasty with stent placement (~07/25/21) History of coronary artery stent placement Social History household members: none Smoking Status: Never smoker alcohol intake: never substance use type: does not use ROS Constitutional Constitutional: Denies fever(s) or weight loss Eyes Eyes: Reports systems reviewed and no addt'l complaints, except as documented ENT HEENT: Reports systems reviewed and no addt'l complaints, except as documented Cardiovascular Cardiovascular: Reports chest pain at rest, chest pain with activity, dyspnea at rest and dyspnea on exertion; Denies edema, palpitations or paroxysmal nocturnal dyspnea Respiratory/Chest Respiratory/Chest: Denies dyspnea on exertion, productive cough, shortness of breath at rest or shortness of breath with exertion Gastrointestinal Gastrointestinal: Denies change in bowel habits, nausea, vomiting or weight changes Genitourinary Genitourinary: Denies difficulty urinating Musculoskeletal Musculoskeletal: Denies joint stiffness or muscle weakness Integumentary Integumentary: Denies lesions Neurologic Neurologic: Denies dizziness or syncope Psychiatric Psychiatric: Denies anxiety Endocrine Endocrinology: Denies excessive sweating or fatigue Hematologic/Lymphatic Hematologic/Lymphatic: Denies anemia Allergic/Immunologic Allergic/Immunologic: Denies seasonal rhinorrhea Physical Exam Const alert, oriented x3 and no apparent distress General Appearance: cooperative HEENT hearing grossly normal bilaterally Head and Scalp: atraumatic Eyes EOMs intact bilaterally Neck General: normal visual inspection Chest inspection of chest normal and palpation of chest normal Resp normal respiratory effort Auscultation: clear to auscultation bilaterally Cardio regular rate, regular rhythm, S1 normal heart sound and S2 normal heart sound Jugular Venous Distention: JVD GI normal to inspection, nondistended, normoactive bowel sounds Extremity normal capillary refill and no pedal edema Peripheral Pulses: Yes femoral pulses present Skin no rashes or lesions noted Neuro oriented x3 and CN's II-XII intact bilaterally Psych Appearance: grossly normal and appropriate Risk Stratification Risk Stratification Applicable: Yes Age >/= 65: Yes >/= 3 CAD Risk Factors (HTN, HLD, DM, family hx of CAD, or current smoker): Yes Aspirin Use in the Past 7 Days: Yes Severe Angina (>/= episodes in 24 hours): Yes EKG ST Changes >/= 0.5mm: No Positive Cardiac Marker: Yes SUMA Risk Stratification Score: 5 SUMA % Risk: 25% Risk Objective Data Vital Signs: Vital Signs Temp Pulse Resp BP Pulse Ox O2 Del Method O2 Flow Rate 98.5 F 97 18 142/73 H 95 Nasal Cannula 4 04/15/24 03:07 04/15/24 07:45 04/15/24 03:07 04/15/24 07:45 04/15/24 03:07 04/15/24 03:07 04/15/24 03:07 Oxygen Flow Rate (L/min) 4 Oxygen Delivery Method Nasal Cannula Weight: 202 lb 6.15 oz Body Mass Index (BMI) 30.7 Intake & Output: Intake and Output for Last 24 Hours 04/13/24 04/14/24 04/15/24 23:59 23:59 23:59 Intake Total 2350 / 2350 2613.0 / 2613.0 50 / 50 Output Total 1999 / 1999 700 / 700 Balance 350 / 350 2613.0 / 2313.0 -650 / -650 Lab / Micro Data 04/15/24 02:54 04/15/24 02:54 Labs: Laboratory Results - last 24 hr 04/14/24 05:15: B-Natriuretic Peptide Cancelled 04/14/24 12:24: POC Glucose 287 H 04/14/24 17:13: POC Glucose 310 H 04/14/24 18:54: Magnesium 1.5 L, Troponin I High Sens 336 H*, B-Natriuretic Peptide 108.1 H 04/14/24 21:03: Troponin I High Sens 414 H* 04/14/24 22:50: POC Glucose 356 H 04/15/24 00:45: Troponin I High Sens 3182 H* 04/15/24 02:54: WBC 8.7, RBC 3.98 L, Hgb 11.2 L, Hct 33.4 L, MCV 83.9, MCH 28.1, MCHC 33.5, RDW Std Deviation 37.8, RDW Coeff of Divya 12.4, Plt Count 251, MPV 9.1, Immature Gran % (Auto) 1.800 H, Neut % (Auto) 81.7 H, Lymph % (Auto) 8.1 L, [place] % (Auto) 8.0, Eos % (Auto) 0.1, Baso % (Auto) 0.3, Absolute Neuts (auto) 7.1, Absolute Lymphs (auto) 0.70 L, Nucleated RBC % 0.2, PT 14.3, INR 1.1, APTT 31.2, Sodium 128 L, Potassium 3.8, Chloride 90 L, Carbon Dioxide 29.0, Anion Gap 9, BUN 15, Creatinine 1.44 H, Estim Creat Clear Calc 56.25, Est GFR (MDRD) Af Amer 63, Est GFR (MDRD) Non-Af 52 L, BUN/Creatinine Ratio 10.4, Glucose 312 H, Calcium 9.5, Triglycerides 163, Cholesterol 166, LDL Cholesterol 100, VLDL Cholesterol 33, HDL Cholesterol 33 L 04/15/24 05:36: Troponin I High Sens 5140 H* 04/15/24 06:31: POC Glucose 306 H Micro: Microbiology 04/12/24 Unknown Tissue - 5th Toe Gram Stain - Final 04/12/24 Unknown Tissue - 5th Toe Wound Culture - Preliminary Staphylococcus aureus 04/12/24 Unknown Tissue - 5th Toe Anaerobic Culture - Preliminary Checking for anaerobes, further studies to follow. 04/11/24 19:20 Wound - Left Foot Gram Stain - Final 04/11/24 19:20 Wound - Left Foot Wound Culture - Final Staphylococcus aureus 04/11/24 19:20 Wound - Left Foot Anaerobic Culture - Preliminary Checking for anaerobes, further studies to follow. 04/12/24 Unknown Tissue - Clearance Fragment Gram Stain - Final 04/12/24 Unknown Tissue - Clearance Fragment Wound Culture - Final Staphylococcus aureus 04/12/24 Unknown Tissue - Clearance Fragment Anaerobic Culture - Preliminary Cardiology Labs/Tests 04/14/24 05:15: B-Natriuretic Peptide Cancelled 04/14/24 18:54: Magnesium 1.5 L, B-Natriuretic Peptide 108.1 H 04/15/24 02:54: WBC 8.7, RBC 3.98 L, Hgb 11.2 L, Hct 33.4 L, MCV 83.9, MCH 28.1, MCHC 33.5, Plt Count 251, MPV 9.1, Immature Gran % (Auto) 1.800 H, Neut % (Auto) 81.7 H, Lymph % (Auto) 8.1 L, [place] % (Auto) 8.0, Eos % (Auto) 0.1, Baso % (Auto) 0.3, Absolute Neuts (auto) 7.1, Nucleated RBC % 0.2, PT 14.3, INR 1.1, APTT 31.2, Sodium 128 L, Potassium 3.8, Chloride 90 L, Carbon Dioxide 29.0, Anion Gap 9, BUN 15, Creatinine 1.44 H, Est GFR (MDRD) Af Amer 63, Est GFR (MDRD) Non-Af 52 L, BUN/Creatinine Ratio 10.4, Glucose 312 H, Calcium 9.5, Triglycerides 163, Cholesterol 166, LDL Cholesterol 100, VLDL Cholesterol 33, HDL Cholesterol 33 L Rhythm: EKG: ECHO: Stress Test: Cardiac Cath: PCI: CT Surgery: Holter monitor: EPS: PPM: CXR: Chest CT Scan: Radiography Diagnostic Testing: Radiology Impression Duplex Scan Lower Extremity Artery 04/11/24 19:45 Interpretation Summary Patent left SFA/popliteal stent with no stenosis. Distal tibio-peroneal vessels with conversion to monophasic waveforms indicating presence of disease. Ordering Physician: Ty Caba Referring Physician: Erika Montana Performed By: Humphrey Abreu, RVT Abdomen/Pelvis CTA 04/13/24 18:24 IMPRESSION: 1. Moderate irregular stenosis throughout the bilateral superficial femoral and popliteal arteries. 2. Moderate irregular stenosis in the left calf arteries, with minimal flow in the posterior tibial artery beginning at the level of the ankle. 3. Moderate irregular stenosis throughout the right calf arteries with little to no flow identified within the posterior tibial artery. 4. Soft tissue ulceration with foci of air adjacent to the distal end of the remaining fifth metatarsal shaft. Findings consistent with the plain film appearance. Please see the separate MRI foot exam. Electronically Signed: Inderjit Elena MD at 23:30 EDT , Lower Extremity MRI 04/14/24 08:02 IMPRESSION: Postoperative change with amputation of the fifth toe. No abscess or fluid collection. Electronically Signed: Guilherme Rice MD at 20:41 EDT , Chest X-Ray 04/14/24 18:30 IMPRESSION: Findings suspicious for lingular infiltrate and pneumonia. Recommend short-term follow-up to complete resolution. Electronically Signed: Randell Villagran MD at 19:40 EDT , Chest X-Ray 04/15/24 05:55 IMPRESSION: Limited exam due to shallow inspiration and lordotic positioning. No evidence for acute cardiopulmonary pathology. Electronically Signed: Juan Montana MD at 6:21 EDT ,
--- NOTE | 2024-04-15 08:20 | CASEMGMT ---
Report given to MANDREL MAKER CM at this time.
--- NOTE | 2024-04-15 08:23 | CON.PCM_ITS ---
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 Diabetes mellitus with diabetic polyneuropathy Type 2 diabetes mellitus with foot ulcer Other specified peripheral vascular diseases Osteomyelitis PAD (peripheral artery disease) Delayed wound healing Hallux limitus of right foot Anxiety Depression Myocardial infarct Hallux limit[place] of right foot Type 2 diabetes mellitus with diabetic polyneuropathy Toe infection Heart disease HTN (hypertension) Diabetes mellitus CAD (coronary artery disease) DM2 (diabetes mellitus, type 2) Asthma Home Medications ?Medication ?Instructions ?Recorded ?Last Taken ?Type albuterol sulfate 90 mcg/actuation 1 - 2 puff inhalation Q4H PRN PRN 09/17/20 Unknown History aerosol inhaler Wheezing clopidogrel 75 mg tablet 75 mg PO DAILY bld thinner 09/17/20 12/10/21 History fluticasone propionate 50 2 puff IH DAILY breathing 09/17/20 11/01/21 History mcg/actuation blister powder for inhalation acetaminophen 500 mg tablet 1,000 mg PO Q6H PRN pain 08/29/22 Unknown History ascorbic acid (vitamin C) 500 mg 500 mg PO DAILY . 08/29/22 Unknown History tablet aspirin 81 mg tablet,delayed 81 mg PO DAILY thinner 08/29/22 Unknown History release (Adult Low Dose Aspirin) empagliflozin 25 mg tablet 25 mg PO DAILY . 08/29/22 Unknown History ezetimibe 10 mg tablet (Zetia) 10 mg PO DAILY . 08/29/22 Unknown History ferrous sulfate 325 mg (65 mg 325 mg PO DAILY . 08/29/22 Unknown History iron) tablet,delayed release fluticasone propionate 50 1 spray intranasal DAILY . 08/29/22 Unknown History mcg/actuation nasal spray,suspension (Allergy Relief (fluticasone)) folic acid 1 mg tablet 1 mg PO DAILY 08/29/22 Unknown History furosemide 20 mg tablet 20 mg PO DAILY . 08/29/22 Unknown History gabapentin 100 mg capsule 200 mg PO BID 08/29/22 Unknown History insulin aspart U-100 100 unit/mL 12 unit subcut TID 08/29/22 Unknown History (3 mL) subcutaneous pen (Novolog FlexPen U-100 Insulin aspart) lidocaine 4 % topical patch 1 patch topical BID PRN 08/29/22 Unknown History (Salonpas (lidocaine)) magnesium oxide 400 mg PO DAILY 08/29/22 Unknown History melatonin 3 mg tablet 3 mg PO HS PRN 08/29/22 Unknown History metformin 500 mg tablet 500 mg PO BID 08/29/22 Unknown History metoprolol tartrate 25 mg tablet 25 mg PO BID bp 08/29/22 Unknown History nitroglycerin 0.4 mg sublingual 0.4 mg sublingual Q5-15M PRN 08/29/22 Unknown History tablet potassium chloride 10 mEq 10 meq PO DAILY 08/29/22 Unknown History tablet,extended release rosuvastatin 20 mg tablet 20 mg PO QHS 08/29/22 Unknown History sertraline 100 mg tablet 100 mg PO DAILY 08/29/22 Unknown History sitagliptin phosphate 100 mg 100 mg PO DAILY 08/29/22 Unknown History tablet (Januvia) tramadol 50 mg tablet 50 mg PO BID PRN 08/29/22 Unknown History amlodipine 5 mg tablet 5 mg PO DAILY BP 04/11/24 Unknown History duloxetine 20 mg capsule,delayed 20 mg PO DAILY depression 04/11/24 Unknown History release glimepiride 4 mg tablet 8 mg PO BID DM 04/11/24 Unknown History metformin 500 mg tablet,extended 1,000 mg PO BID DM 04/11/24 Unknown History release 24 hr cefazolin 2 gram intravenous 2 g IV Q8H 40 days 04/14/24 Unknown Rx solution metronidazole 500 mg tablet 500 mg PO TID 40 days #120 tabs 04/14/24 Unknown Rx Allergy/AdvReac Type Severity Reaction Status Date / Time No Known Allergies Allergy Verified 04/11/24 12:48 Family History Mother Diabetes Hypertension Father Diabetes Hypertension Surgical History History of coronary artery bypass graft x 3 (~08/21/22) Status post right foot surgery S/P peripheral artery angioplasty with stent placement (~07/25/21) History of coronary artery stent placement Social History household members: none Smoking Status: Never smoker alcohol intake: never substance use type: does not use Lab / Micro Data 04/15/24 02:54 04/15/24 02:54 Labs: Laboratory Results - last 24 hr 04/14/24 05:15: B-Natriuretic Peptide Cancelled 04/14/24 12:24: POC Glucose 287 H 04/14/24 17:13: POC Glucose 310 H 04/14/24 18:54: Magnesium 1.5 L, Troponin I High Sens 336 H*, B-Natriuretic Peptide 108.1 H 04/14/24 21:03: Troponin I High Sens 414 H* 04/14/24 22:50: POC Glucose 356 H 04/15/24 00:45: Troponin I High Sens 3182 H* 04/15/24 02:54: WBC 8.7, RBC 3.98 L, Hgb 11.2 L, Hct 33.4 L, MCV 83.9, MCH 28.1, MCHC 33.5, RDW Std Deviation 37.8, RDW Coeff of Divya 12.4, Plt Count 251, MPV 9.1, Immature Gran % (Auto) 1.800 H, Neut % (Auto) 81.7 H, Lymph % (Auto) 8.1 L, [place] % (Auto) 8.0, Eos % (Auto) 0.1, Baso % (Auto) 0.3, Absolute Neuts (auto) 7.1, Absolute Lymphs (auto) 0.70 L, Nucleated RBC % 0.2, PT 14.3, INR 1.1, APTT 31.2, Sodium 128 L, Potassium 3.8, Chloride 90 L, Carbon Dioxide 29.0, Anion Gap 9, BUN 15, Creatinine 1.44 H, Estim Creat Clear Calc 56.25, Est GFR (MDRD) Af Amer 63, Est GFR (MDRD) Non-Af 52 L, BUN/Creatinine Ratio 10.4, Glucose 312 H, Calcium 9.5, Triglycerides 163, Cholesterol 166, LDL Cholesterol 100, VLDL Cholesterol 33, HDL Cholesterol 33 L 04/15/24 05:36: Troponin I High Sens 5140 H* 04/15/24 06:31: POC Glucose 306 H Micro: Microbiology 04/12/24 Unknown Tissue - 5th Toe Gram Stain - Final 04/12/24 Unknown Tissue - 5th Toe Wound Culture - Preliminary Staphylococcus aureus 04/12/24 Unknown Tissue - 5th Toe Anaerobic Culture - Preliminary Checking for anaerobes, further studies to follow. 04/11/24 19:20 Wound - Left Foot Gram Stain - Final 04/11/24 19:20 Wound - Left Foot Wound Culture - Final Staphylococcus aureus 04/11/24 19:20 Wound - Left Foot Anaerobic Culture - Preliminary Checking for anaerobes, further studies to follow. 04/12/24 Unknown Tissue - Clearance Fragment Gram Stain - Final 04/12/24 Unknown Tissue - Clearance Fragment Wound Culture - Final Staphylococcus aureus 04/12/24 Unknown Tissue - Clearance Fragment Anaerobic Culture - Preliminary Imaging Radiology Impression Duplex Scan Lower Extremity Artery 04/11/24 19:45 Interpretation Summary Patent left SFA/popliteal stent with no stenosis. Distal tibio-peroneal vessels with conversion to monophasic waveforms indicating presence of disease. Ordering Physician: Ty Caba Referring Physician: Erika Montana Performed By: Humphrey Abreu, T Abdomen/Pelvis CTA 04/13/24 18:24 IMPRESSION: 1. Moderate irregular stenosis throughout the bilateral superficial femoral and popliteal arteries. 2. Moderate irregular stenosis in the left calf arteries, with minimal flow in the posterior tibial artery beginning at the level of the ankle. 3. Moderate irregular stenosis throughout the right calf arteries with little to no flow identified within the posterior tibial artery. 4. Soft tissue ulceration with foci of air adjacent to the distal end of the remaining fifth metatarsal shaft. Findings consistent with the plain film appearance. Please see the separate MRI foot exam. Electronically Signed: Inderjit Elena MD at 23:30 EDT , Lower Extremity MRI 04/14/24 08:02 IMPRESSION: Postoperative change with amputation of the fifth toe. No abscess or fluid collection. Electronically Signed: Guilherme Rice MD at 20:41 EDT , Chest X-Ray 04/14/24 18:30 IMPRESSION: Findings suspicious for lingular infiltrate and pneumonia. Recommend short-term follow-up to complete resolution. Electronically Signed: Randell Villagran MD at 19:40 EDT , Chest X-Ray 04/15/24 05:55 IMPRESSION: Limited exam due to shallow inspiration and lordotic positioning. No evidence for acute cardiopulmonary pathology. Electronically Signed: Juan Montana MD at 6:21 EDT ,
[2024-04-15] MEDS: Aspirin E.C. 81 MG Tablet PO (08:47)
[2024-04-15] MEDS: DULoxetine Hcl 20 MG Capsule PO (08:48)
[2024-04-15] MEDS: amLODIPine 10 MG Tablet PO (08:49)
[2024-04-15] MEDS: Metoprolol Tartrate 25 MG Tablet PO ×2 (08:49→21:37)
[2024-04-15] MEDS: guaiFENesin 1,200 MG Tablet 1200 MG PO ×2 (08:50→21:37)
[2024-04-15] MEDS: Clopidogrel Bisulfate 75 MG Tablet PO (08:51)
[2024-04-15] MEDS: Pantoprazole Sodium 40 MG Tablet PO (08:53)
--- NOTE | 2024-04-15 09:43 | PCM.PROGNOTE ---
Subjective Subjective Patient was seen this morning for follow up on his left foot. He was transferred to PCU overnight due to cardiac issues. No f/c/n/v. Objective Data Objective Data Vital Signs: Vital Signs Temp Pulse Resp BP Pulse Ox O2 Del Method O2 Flow Rate 98.8 F 95 18 163/74 H 94 Nasal Cannula 4 04/15/24 08:45 04/15/24 08:49 04/15/24 08:45 04/15/24 08:45 04/15/24 08:45 04/15/24 08:45 04/15/24 08:45 Oxygen Flow Rate (L/min) 4 Oxygen Delivery Method Nasal Cannula Weight: 91.8 kg Body Mass Index (BMI) 30.7 Intake & Output: Intake and Output for Last 24 Hours 04/13/24 04/14/24 04/15/24 23:59 23:59 23:59 Intake Total 2350 / 2350 2613.0 / 2613.0 95.5 / 95.5 Output Total 1999 / 1999 700 / 700 Balance 350 / 350 2613.0 / 2313.0 -604.5 / -604.5 Lab / Micro Data 04/15/24 02:54 04/15/24 02:54 Labs: Laboratory Results - last 24 hr 04/14/24 05:15: B-Natriuretic Peptide Cancelled 04/14/24 12:24: POC Glucose 287 H 04/14/24 17:13: POC Glucose 310 H 04/14/24 18:54: Magnesium 1.5 L, Troponin I High Sens 336 H*, B-Natriuretic Peptide 108.1 H 04/14/24 21:03: Troponin I High Sens 414 H* 04/14/24 22:50: POC Glucose 356 H 04/15/24 00:45: Troponin I High Sens 3182 H* 04/15/24 02:54: WBC 8.7, RBC 3.98 L, Hgb 11.2 L, Hct 33.4 L, MCV 83.9, MCH 28.1, MCHC 33.5, RDW Std Deviation 37.8, RDW Coeff of Divya 12.4, Plt Count 251, MPV 9.1, Immature Gran % (Auto) 1.800 H, Neut % (Auto) 81.7 H, Lymph % (Auto) 8.1 L, [place] % (Auto) 8.0, Eos % (Auto) 0.1, Baso % (Auto) 0.3, Absolute Neuts (auto) 7.1, Absolute Lymphs (auto) 0.70 L, Nucleated RBC % 0.2, PT 14.3, INR 1.1, APTT 31.2, Sodium 128 L, Potassium 3.8, Chloride 90 L, Carbon Dioxide 29.0, Anion Gap 9, BUN 15, Creatinine 1.44 H, Estim Creat Clear Calc 56.25, Est GFR (MDRD) Af Amer 63, Est GFR (MDRD) Non-Af 52 L, BUN/Creatinine Ratio 10.4, Glucose 312 H, Calcium 9.5, Triglycerides 163, Cholesterol 166, LDL Cholesterol 100, VLDL Cholesterol 33, HDL Cholesterol 33 L 04/15/24 05:36: Troponin I High Sens 5140 H* 04/15/24 06:31: POC Glucose 306 H Micro: Microbiology 04/12/24 Unknown Tissue - Clearance Fragment Gram Stain - Final 04/12/24 Unknown Tissue - Clearance Fragment Wound Culture - Final Staphylococcus aureus 04/12/24 Unknown Tissue - Clearance Fragment Anaerobic Culture - Final No anaerobic bacteria isolated. 04/12/24 Unknown Tissue - 5th Toe Gram Stain - Final 04/12/24 Unknown Tissue - 5th Toe Wound Culture - Preliminary Staphylococcus aureus 04/12/24 Unknown Tissue - 5th Toe Anaerobic Culture - Final No anaerobic bacteria isolated. 04/11/24 19:20 Wound - Left Foot Gram Stain - Final 04/11/24 19:20 Wound - Left Foot Wound Culture - Final Staphylococcus aureus 04/11/24 19:20 Wound - Left Foot Anaerobic Culture - Preliminary Checking for anaerobes, further studies to follow. 04/11/24 14:31 Blood Culture (Wb) - Anticubital Right Blood Culture - Preliminary No growth in 48 hours. Radiography Diagnostic Testing: Radiology Impression Duplex Scan Lower Extremity Artery 04/11/24 19:45 Interpretation Summary Patent left SFA/popliteal stent with no stenosis. Distal tibio-peroneal vessels with conversion to monophasic waveforms indicating presence of disease. Ordering Physician: Ty Caba Referring Physician: Erika Montana Performed By: uHmphrey Abreu, Juliet Abdomen/Pelvis CTA 04/13/24 18:24 IMPRESSION: 1. Moderate irregular stenosis throughout the bilateral superficial femoral and popliteal arteries. 2. Moderate irregular stenosis in the left calf arteries, with minimal flow in the posterior tibial artery beginning at the level of the ankle. 3. Moderate irregular stenosis throughout the right calf arteries with little to no flow identified within the posterior tibial artery. 4. Soft tissue ulceration with foci of air adjacent to the distal end of the remaining fifth metatarsal shaft. Findings consistent with the plain film appearance. Please see the separate MRI foot exam. Electronically Signed: Inderjit Elena MD at 23:30 EDT , Lower Extremity MRI 04/14/24 08:02 IMPRESSION: Postoperative change with amputation of the fifth toe. No abscess or fluid collection. Electronically Signed: Guilherme Rice MD at 20:41 EDT , Chest X-Ray 04/14/24 18:30 IMPRESSION: Findings suspicious for lingular infiltrate and pneumonia. Recommend short-term follow-up to complete resolution. Electronically Signed: Randell Villagran MD at 19:40 EDT , Chest X-Ray 04/15/24 05:55 IMPRESSION: Limited exam due to shallow inspiration and lordotic positioning. No evidence for acute cardiopulmonary pathology. Electronically Signed: Juan Montana MD at 6:21 EDT , Physical Exam Const alert, oriented x3 and no apparent distress Constitutional Narrative: Left foot s/p 5th ray debridement down to bone tissue is viable but there is residual cellulitis extending to the midfoot dorsally and plantarly with noted improvement, there is no necrosis, no fluctuance, no crepitus, no maloder, wound distal left 1st toe down to subc tissue, no acute ischemia to the left foot or ankle. No evidence of DVT bilateral. Assessment & Plan Assessment/Plan (1) Acute osteomyelitis of left foot: (2) Non-pressure chronic ulcer of other part of left foot with necrosis of bone: PLAN: Plan Evaluation performed. s/p left foot debridement, there is still significant cellulitis to left foot but noted to be improved today - MRI was ordered for further evaluation - this was reviewed and no abscess or deeper infection noted He is on IV antibiotics - ID on consult No weightbearing left foot Wound care left foot - Gauze packing and gauze dressing - keep clean, dry and intact at this time Hx of PAD - ordered new LEAS and arterial duplex studies for further evaluation - reviewed - vascular surgery on consult Podiatry will continue to follow
[2024-04-15 10:03] LABS: Partial Thromboplast Time 32.1 Seconds (24.1-36.2)
[2024-04-15 11:56] LABS: Bedside Glucose 251 mg/dL (74-106)
--- NOTE | 2024-04-15 12:42 | NURSING ---
Called report to woven label designer
--- NOTE | 2024-04-15 15:41 | PN.HOSP_ITS ---
Reason for Visit Reason for Visit: Left foot wound Subjective Subjective Late evening and overnight events noted. Patient to be taken for cath later today. Denies any current chest pain and states his shortness of breath is better. Is anxious to get the vascular issues in his left leg improved to so he will have better wound healing. This was to be today but will be delayed due to his cardiac events but current plan per discussion with Dr. Dickens is to do this Friday. Objective Data Objective Data Vital Signs: Vital Signs Temp Pulse Resp BP Pulse Ox O2 Del Method O2 Flow Rate 98.0 F 83 18 117/87 H 92 Nasal Cannula 2 04/15/24 12:37 04/15/24 15:30 04/15/24 15:30 04/15/24 15:30 04/15/24 15:30 04/15/24 15:30 04/15/24 15:00 Oxygen Flow Rate (L/min) 2 Oxygen Delivery Method Nasal Cannula Weight: 91.8 kg Body Mass Index (BMI) 30.7 Intake & Output: Intake and Output for Last 24 Hours 04/13/24 04/14/24 04/15/24 23:59 23:59 23:59 Intake Total 2350 / 2350 2613.0 / 2613.0 459.75 / 459.75 Output Total 1999 / 1999 1350 / 1350 Balance 350 / 350 2613.0 / 2313.0 -890.25 / -890.25 Lab / Micro Data 04/15/24 02:54 04/15/24 02:54 Labs: Laboratory Results - last 24 hr 04/14/24 05:15: B-Natriuretic Peptide Cancelled 04/14/24 12:24: POC Glucose 287 H 04/14/24 17:13: POC Glucose 310 H 04/14/24 18:54: Magnesium 1.5 L, Troponin I High Sens 336 H*, B-Natriuretic Peptide 108.1 H 04/14/24 21:03: Troponin I High Sens 414 H* 04/14/24 22:50: POC Glucose 356 H 04/15/24 00:45: Troponin I High Sens 3182 H* 04/15/24 02:54: WBC 8.7, RBC 3.98 L, Hgb 11.2 L, Hct 33.4 L, MCV 83.9, MCH 28.1, MCHC 33.5, RDW Std Deviation 37.8, RDW Coeff of Divya 12.4, Plt Count 251, MPV 9.1, Immature Gran % (Auto) 1.800 H, Neut % (Auto) 81.7 H, Lymph % (Auto) 8.1 L, [place] % (Auto) 8.0, Eos % (Auto) 0.1, Baso % (Auto) 0.3, Absolute Neuts (auto) 7.1, Absolute Lymphs (auto) 0.70 L, Nucleated RBC % 0.2, PT 14.3, INR 1.1, APTT 31.2, Sodium 128 L, Potassium 3.8, Chloride 90 L, Carbon Dioxide 29.0, Anion Gap 9, BUN 15, Creatinine 1.44 H, Estim Creat Clear Calc 56.25, Est GFR (MDRD) Af Amer 63, Est GFR (MDRD) Non-Af 52 L, BUN/Creatinine Ratio 10.4, Glucose 312 H, Calcium 9.5, Triglycerides 163, Cholesterol 166, LDL Cholesterol 100, VLDL Cholesterol 33, HDL Cholesterol 33 L 04/15/24 05:36: Troponin I High Sens 5140 H* 04/15/24 06:31: POC Glucose 306 H 04/15/24 09:40: APTT 32.1 04/15/24 11:34: POC Glucose 251 H Micro: Microbiology 04/12/24 Unknown Tissue - Clearance Fragment Gram Stain - Final 04/12/24 Unknown Tissue - Clearance Fragment Wound Culture - Final Staphylococcus aureus 04/12/24 Unknown Tissue - Clearance Fragment Anaerobic Culture - Final No anaerobic bacteria isolated. 04/12/24 Unknown Tissue - 5th Toe Gram Stain - Final 04/12/24 Unknown Tissue - 5th Toe Wound Culture - Preliminary Staphylococcus aureus 04/12/24 Unknown Tissue - 5th Toe Anaerobic Culture - Final No anaerobic bacteria isolated. 04/11/24 19:20 Wound - Left Foot Gram Stain - Final 04/11/24 19:20 Wound - Left Foot Wound Culture - Final Staphylococcus aureus 04/11/24 19:20 Wound - Left Foot Anaerobic Culture - Preliminary Checking for anaerobes, further studies to follow. 04/11/24 14:31 Blood Culture (Wb) - Anticubital Right Blood Culture - Preliminary No growth in 48 hours. Radiography Diagnostic Testing: Radiology Impression Duplex Scan Lower Extremity Artery 04/11/24 19:45 Interpretation Summary Patent left SFA/popliteal stent with no stenosis. Distal tibio-peroneal vessels with conversion to monophasic waveforms indicating presence of disease. Ordering Physician: Ty Caba Referring Physician: Erika Russo Performed By: Humphrey Abreu, T Abdomen/Pelvis CTA 04/13/24 18:24 IMPRESSION: 1. Moderate irregular stenosis throughout the bilateral superficial femoral and popliteal arteries. 2. Moderate irregular stenosis in the left calf arteries, with minimal flow in the posterior tibial artery beginning at the level of the ankle. 3. Moderate irregular stenosis throughout the right calf arteries with little to no flow identified within the posterior tibial artery. 4. Soft tissue ulceration with foci of air adjacent to the distal end of the remaining fifth metatarsal shaft. Findings consistent with the plain film appearance. Please see the separate MRI foot exam. Electronically Signed: Inderjit Elena MD at 23:30 EDT , Lower Extremity MRI 04/14/24 08:02 IMPRESSION: Postoperative change with amputation of the fifth toe. No abscess or fluid collection. Electronically Signed: Guilherme Rice MD at 20:41 EDT , Chest X-Ray 04/14/24 18:30 IMPRESSION: Findings suspicious for lingular infiltrate and pneumonia. Recommend short-term follow-up to complete resolution. Electronically Signed: Randell Villagran MD at 19:40 EDT , Echocardiogram 04/14/24 21:20 Interpretation Summary The left ventricular ejection fraction is 55 %. Stage 1 diastolic dysfunction. Normal LV size. Structurally normal valves. Ordering Physician: Katia Carrizales Referring Physician: EMMA RUSSO Performed By: Chanda Madden RDCS Chest X-Ray 04/15/24 05:55 IMPRESSION: Limited exam due to shallow inspiration and lordotic positioning. No evidence for acute cardiopulmonary pathology. Electronically Signed: Juan Montana MD at 6:21 EDT Reading Location ID and State: [facility] / [place] , Service support , Physical Exam Const alert, oriented x3, no apparent distress and well nourished; Negative for average body habitus or healthy appearing Constitutional Narrative: Obese, middle-aged, white male, sitting up in bed, nursing at bedside, getting back to bed from going to the bathroom, appears comfortable, currently appears pleasant, appears chronically ill but not acutely toxic HEENT head/scalp atraumatic and moist oral mucous membranes HEENT Narrative: Mallampati 3, no thrush Resp normal respiratory effort, no retractions, no use of accessory muscles and clear to auscultation bilaterally Auscultation: Negative for rales, rhonchi or wheezes Cardio regular rate, regular rhythm, S1 normal heart sound, S2 normal heart sound, no murmurs, no rub, no gallops and no clicks GI normal to inspection, nondistended, normoactive bowel sounds, soft to palpation and non-tender GI Narrative: Protuberant abdomen Extremity Extremity Narrative: Left lower extremity with postoperative dressing in place, cap refill delayed, pedal pulses on right lower extremity are 1+ Neuro oriented x3, moves all extremities and no focal motor deficits Neuro Narrative: Decreased sensation bilateral feet Speech: speech normal Psych Psych Narrative: Affect is slightly flat today, patient is much Colmer and more interactive in an appropriate way than he has been throughout his hospitalization thus far Assessment & Plan Assessment/Plan (1) Non-pressure chronic ulcer of other part of left foot with necrosis of bone: (2) Acute osteomyelitis of left foot: PLAN: Plan Left fifth digit osteomyelitis/cellulitis right great toe -Postop day 3 debridement of nonviable and infected/necrotic tissue with fifth toe resection -Follow-up MRI was negative for any signs of infection so erythema was felt to be likely vasculature -Microbiology still showing gram-positive cocci with Staph aureus on culture appears to be MSSA -Awaiting more finalized cultures -Blood cultures are no growth at 48 hours--> awaiting finalized results -Antibiotics were changed due to fever and respiratory distress yesterday--> currently on vancomycin and Zosyn -Infectious disease and podiatry are following-appreciate input -Wound care nurses following-appreciate assistance Acute hypoxia secondary to left lower lobe pneumonia -Patient developed fever and tachycardia with hypoxia and chest x-ray shows left-sided infiltrate -Antibiotics transition from orals back to IV with vancomycin and Zosyn for now -ID is following and will await input -Wean oxygen as able -Sputum culture was ordered but patient not able to produce as of yet NSTEMI -Heparin drip initiated and will continue for now -Cardiac catheterization pending -Continue statin -Continue beta-jose -Continue aspirin and Plavix Mild hyponatremia -Sodium 128 -Multifactorial with blood glucose this morning at 312 and patient did receive Lasix yesterday -Adjusting insulins on a daily basis and reassess in a.m. GRZEGORZ on CKD stage IIIa -Baseline serum creatinine is between 1 and 1.2 -Serum creatinine up slightly today at 1.44 however he did receive 1 dose of Lasix yesterday so is probably related to this -Monitor closely with antibiotic use -BMP in a.m. Hypomagnesemia -2 g mag bolus -recheck in a.m. IH-3-adfpiroifzbs -Hemoglobin A1c in 7.9 -Hold home oral agents -AM fasting blood sugars are markedly elevated at 312 however some of this elevation may be a stress response -With fasting blood sugars remaining markedly elevated will increase Lantus from 25 units to 40 units -Will hold off on prandial insulin at this time as patient has been n.p.o. on and off -Continue sliding scale -Accu-Cheks before meals and at bedtime -Cardiac/carb controlled diet Chronic microcytic anemia -Hemoglobin stable -Continue to monitor CBC Peripheral vascular disease -Has been following with Dr. Wells -Patient reports recent revascularization but unable to say exactly when this occurred--> thinks it was about 6 months ago -Minimal bleeding during surgical intervention for osteomyelitis -Plan is for vascular intervention on his left lower extremity Friday -Was to be today but got delayed due to NSTEMI and workup -Continue aspirin 81 mg daily -Continue Plavix 81 mg daily CAD/essential HTN/HPL -History of CABG x 3 08/21/2022 -Continue aspirin and Plavix -Blood pressures are overall improved however not quite yet at goal -Will continue to monitor with changes and if remains elevated above 130/80 tomorrow will add lisinopril -Continue metoprolol 25 mg daily -Continue home statin -Patient has not been compliant in states he was going to be started on injection medication for his cholesterol however insurance denied it and he never restarted his pills as he did not have any more at home and did not call and ask for more History of asthma -Continue as needed albuterol inhaler Anxiety/depression -Continue home duloxetine Obesity -Recommend weight loss -BMI 30.8 -Complicate treatment, prognosis, outcomes DVT prophylaxis -Heparin drip CODE STATUS -Full as verified Charges/Coding Visit Charges Inpatient E&M: 93307 Subs Hosp L2
--- NOTE | 2024-04-15 15:43 | CL.D_ITS ---
Patient Name: ROSETTA STEWART Study Date: 04/15/2024 Performing: Corey Qureshi MD Ht: 68 inches 172.72 cm : 1960 Wt: 202.6 lbs 91.8 kg Age: 64 Gender: male BSA: 2.05 PROCEDURE(S) PERFORMED DC03-(41934)LHC/COR/LV/CABG CLINICAL PROFILE AND INDICATIONS Indications: ACS <= 24 hrs Heart Failure: None Stress/Imaging Stress/Image Study Performed: No CAD Presentations: Non-STEMI. Symptom onset Date/Time: 04/14/24 Time Not Available CONCLUSIONS Coronary artery disease status post coronary bypass surgery. Occluded third obtuse marginal branch likely culprit for vessel. Preserved left ventricular systolic function. RECOMMENDATIONS Will recommend medical management and can proceed with vascular surgery. DESCRIPTION OF PROCEDURE The patient arrived to the procedure lab. The risks and benefits of the procedure as well as a full description of our services here and current unavailability of surgical backup were fully explained to the patient and/or their significant other prior to the catheterization. The Timeout was completed, verifying the correct patient and procedure. The patient's procedural site was prepped and draped in the usual fashion. Local anesthetic was given subcutaneously to right groin region with Lidocaine 2%. Using a modified Seldinger technique, arterial access was obtained via the right femoral artery, with Micropuncture set Left Coronary Artery selective angiography was performed in multiple views using a 5 Fr. JL4 catheter. Right Coronary Artery selective angiography was then performed in multiple views using a 5 Fr. 3 DRC. Saphenous Vein graft to the RCA selective angiography was performed in multiple views using a 5 Fr. 3 DRC. Saphenous Vein graft to the OM 1 selective angiography was performed in multiple views using a 5 Fr. 3 RDC. Left internal mammary artery graft to the LAD selective angiography was performed in multiple views using a 5 Fr. 3DRC (Sandeep) catheter. Left internal mammary artery graft to the LAD selective angiography was performed in multiple views using a 5 Fr. IM catheter. Left Ventriculography was performed in [place] projection using a 5 Fr. Pigtail catheter. LV to AO pullback pressures were then recorded.The arterial sheath was pulled and manual compression applied until hemostasis is achieved. CORONARY ANGIOGRAPHY DOMINANCE: Right Dominant LEFT HEART ASSESSMENT Normal LV wall motion Normal Left Ventricular systolic function LEFT MAIN: Angiographically normal LEFT ANTERIOR DESCENDING ARTERY: MID LAD: is occluded DIAGONAL 1: Proximal - 80 % Stenosis CIRCUMFLEX ARTERY: First obtuse marginal branch has a 90% ostial stenosis, the second obtuse marginal branch is tiny, the third obtuse marginal branch is previously stented and is noted to be occluded. The AV groove branch is also noted to be tiny. RIGHT CORONARY ARTERY: 70% mid segment stenosis and then totally occluded GRAFTS: ARRIAGA graft to the Mid LAD This vessel is patent but today is a significant acute bend noted in the proximal to midportion probably with mild stenosis and then the anastomotic site is noted to be patent with good distal runoff. Radial graft to the 1st OM is totally occluded Saphenous Vein graft to the RPDA is patent COMPLICATIONS No Complications PROCEDURE MEDICATIONS Versed 1 mg IV Fentanyl 50 mcg IV Versed 1 mg IV Oxygen: 2 L/min via nasal cannula Oxygen: 4 L/min via nasal cannula IV Bolus: .9 NaCl 200 ml total 04/15/2024 13:33:58 SUMMARY OF HEMODYNAMIC DATA Time AIR REST ECG 12:58:12 AO 121/68 (90) SA 13:17:42 LV 144/16, 25 13:32:17 LV 140/21, 26 13:32:25 LV 132/19, 25 13:32:47 LV 128/20, 24 13:32:55 LVp 120/15, 24 13:32:59 AOp 122/68 (90) 13:33:06 Signed By Corey Qureshi MD On 04/15/2024 15:42:47 Corey Qureshi MD
[2024-04-15] MEDS: Magnesium Sulfate 2 GM in Dextrose 5%-Water (100mL Bag) 100 ML IV (16:06)
[2024-04-15 16:29] LABS: Bedside Glucose 238 mg/dL (74-106)
[2024-04-15] MEDS: Acetaminophen 500 MG Tablet 1000 MG PO (18:09)
[2024-04-15 19:20] LABS: Vancomycin, Trough Level 14.2 ug/mL (5.0-15.0)
--- NOTE | 2024-04-15 19:28 | PCM.RX.CS ---
Consult Antibiotic Management Pharmacy has been consulted to manage selected antibiotic: Vancomycin Type of Intervention Type of Consult: Follow-up Suspected Infection Suspected Infection: Osteomyelitis Prior Doses of Antibiotics Prior Doses of Antibiotics Received/Current Regimen: Vancomycin 1000 mg IV x 1 given 04/14 @ 1957, and 04/15 @ 0751 Labs Labs: Sodium 128 mmol/L (136-145) L 04/15/24 02:54 Potassium 3.8 mmol/L (3.5-5.1) 04/15/24 02:54 Chloride 90 mmol/L (98-107) L 04/15/24 02:54 Carbon Dioxide 29.0 mmol/L (21.0-32.0) 04/15/24 02:54 Anion Gap 9 (5-15) 04/15/24 02:54 BUN 15 mg/dL (7-18) 04/15/24 02:54 Creatinine 1.44 mg/dL (0.70-1.30) H 04/15/24 02:54 Est GFR (MDRD) Af Amer 63 mL/min (>60) 04/15/24 02:54 Est GFR (MDRD) Non-Af 52 mL/min (>60) L 04/15/24 02:54 BUN/Creatinine Ratio 10.4 RATIO (10-20) 04/15/24 02:54 Glucose 312 mg/dL (74-106) H 04/15/24 02:54 Vancomycin Trough 14.2 ug/mL (5.0-15.0) 04/15/24 18:34 Microbiology Microbiology: Microbiology 04/12/24 Unknown Tissue - Clearance Fragment Gram Stain - Final 04/12/24 Unknown Tissue - Clearance Fragment Wound Culture - Final Staphylococcus aureus 04/12/24 Unknown Tissue - Clearance Fragment Anaerobic Culture - Final No anaerobic bacteria isolated. 04/12/24 Unknown Tissue - 5th Toe Gram Stain - Final 04/12/24 Unknown Tissue - 5th Toe Wound Culture - Preliminary Staphylococcus aureus 04/12/24 Unknown Tissue - 5th Toe Anaerobic Culture - Final No anaerobic bacteria isolated. 04/11/24 19:20 Wound - Left Foot Gram Stain - Final 04/11/24 19:20 Wound - Left Foot Wound Culture - Final Staphylococcus aureus 04/11/24 19:20 Wound - Left Foot Anaerobic Culture - Preliminary Checking for anaerobes, further studies to follow. 04/11/24 14:31 Blood Culture (Wb) - Anticubital Right Blood Culture - Preliminary No growth in 48 hours. Dosing Weight Weight used for dosin.8 kg Estimated Creatinine Clearance Estimated Creatinine Clearance: ~56 Goal Trough Goal Trough: 15-20 mcg/mL Pharmacy Plan for Drug Dosing Pharmacy Plan for Drug Dosing: Vancomycin trough drawn ~10.75 hours after last dose = 14.2. Increase to 1250 mg Q12H, trough prior to 4th dose of new regimen. Pharmacy Service will continue to monitor and adjust dosing as required. Follow-Up Labs Follow-Up Labs: Trough: Vancomycin Date/Time Labs Ordered Labs to be done on [date and time ordered]: 04/17/24 @ 0700
[2024-04-15] MEDS: Vancomycin HCl 1,250 MG in 0.9% Normal Saline (250mL Bag) 250 ML 167 MG IV (19:52)
[2024-04-15] MEDS: Atorvastatin Calcium 40 MG Tablet PO (21:37)
[2024-04-16] VITALS (10 sets, daily range): BP systolic 126–169; BP diastolic 63–77; PULSE 80–89; RESP 16–18; TEMP 36–37.2; O2SAT 91–98
[2024-04-16] MEDS: Piperacil/Tazobactam 3.375 GM in 0.9% Normal Saline (50mL MB+) 50 ML IV ×3 (06:13→21:09)
[2024-04-16] MEDS: Insulin Lispro 100 UNIT/ML INSULN.PEN SC ×4 (06:13→21:18)
[2024-04-16 06:29] LABS: Bedside Glucose 410 mg/dL (74-106)
[2024-04-16] MEDS: Ipratropium/Albuterol Sulfate 3 ML AMPUL.NEB INHALATION ×3 (06:39→20:37)
[2024-04-16 06:55] LABS: Bedside Glucose 314 mg/dL (74-106)
[2024-04-16 07:37] LABS: Hematocrit 33.5 % (40-54); Hemoglobin 11.1 g/dL (13.0-16.5); Mean Corp Hgb Conc 33.1 g/dL (32-36); Mean Corpuscular Hgb 27.9 pg (27.0-32.0); Mean Corpuscular Volume 84.2 fL (80-94); Mean Platelet Vol. 9.2 fl (6.2-12.0); Platelet Count 243 K/mm3 (150-450); RBC Distribution Width CV 12.5 % (11.6-14.6); RBC Distribution Width SD 38.6 fl (35.1-43.9); Red Blood Count 3.98 M/mm3 (4.6-6.2)
[2024-04-16 08:15] LABS: International Normalized Ratio 1.1; Partial Thromboplast Time 32.5 Seconds (24.1-36.2); Prothrombin Time (Protime)PT. 14.5 SECONDS (11.7-14.9)
[2024-04-16] MEDS: Ferrous Sulfate 325 MG Tablet PO (08:37)
[2024-04-16] MEDS: amLODIPine 10 MG Tablet PO (08:37)
[2024-04-16] MEDS: Aspirin E.C. 81 MG Tablet PO (08:37)
[2024-04-16] MEDS: Fluticasone 0.05% 1 SPRAY NASAL.SRY NASAL (08:38)
[2024-04-16] MEDS: DULoxetine Hcl 20 MG Capsule PO (08:38)
[2024-04-16] MEDS: Metoprolol Tartrate 25 MG Tablet PO ×2 (08:39→21:03)
[2024-04-16] MEDS: guaiFENesin 1,200 MG Tablet 1200 MG PO ×2 (08:39→21:03)
[2024-04-16] MEDS: Clopidogrel Bisulfate 75 MG Tablet PO (08:39)
[2024-04-16] MEDS: Pantoprazole Sodium 40 MG Tablet PO (08:39)
[2024-04-16] MEDS: Vancomycin HCl 1,250 MG in 0.9% Normal Saline (250mL Bag) 250 ML 167 MG IV (08:51)
--- NOTE | 2024-04-16 09:06 | PCM.PROGNOTE ---
Subjective Subjective Patient was seen this morning for follow up on left foot - he is resting in bed, he had cardiac cath yesterday. No new complaints at this time, no f/c/n/v Objective Data Objective Data Vital Signs: Vital Signs Temp Pulse Resp BP Pulse Ox O2 Del Method O2 Flow Rate 99.0 F 89 16 126/63 H 94 Nasal Cannula 2 04/16/24 08:31 04/16/24 08:39 04/16/24 08:31 04/16/24 08:31 04/16/24 08:31 04/16/24 08:31 04/16/24 08:31 Oxygen Flow Rate (L/min) 2 Oxygen Delivery Method Nasal Cannula Weight: 91.8 kg Body Mass Index (BMI) 30.7 Intake & Output: Intake and Output for Last 24 Hours 04/14/24 04/15/24 04/16/24 23:59 23:59 23:59 Intake Total 2613.0 / 2613.0 1149.00 / 1149.00 50 / 50 Output Total 1875 / 1875 325 / 325 Balance 2613.0 / 2313.0 -726.00 / -726.00 -275 / -275 Lab / Micro Data 04/16/24 06:54 04/15/24 02:54 Labs: Laboratory Results - last 24 hr 04/15/24 09:40: APTT 32.1 04/15/24 11:34: POC Glucose 251 H 04/15/24 16:10: POC Glucose 238 H 04/15/24 18:34: Vancomycin Trough 14.2 04/15/24 21:35: POC Glucose 410 H 04/16/24 06:11: POC Glucose 314 H 04/16/24 06:54: WBC 7.0, RBC 3.98 L, Hgb 11.1 L, Hct 33.5 L, MCV 84.2, MCH 27.9, MCHC 33.1, RDW Std Deviation 38.6, RDW Coeff of Divya 12.5, Plt Count 243, MPV 9.2, PT 14.5, INR 1.1, APTT 32.5 Micro: Microbiology 04/12/24 Unknown Tissue - 5th Toe Gram Stain - Final 04/12/24 Unknown Tissue - 5th Toe Wound Culture - Final Staphylococcus aureus 04/12/24 Unknown Tissue - 5th Toe Anaerobic Culture - Final No anaerobic bacteria isolated. 04/11/24 19:20 Wound - Left Foot Gram Stain - Final 04/11/24 19:20 Wound - Left Foot Wound Culture - Final Staphylococcus aureus 04/11/24 19:20 Wound - Left Foot Anaerobic Culture - Final Anaerobic cocci 04/12/24 Unknown Tissue - Clearance Fragment Gram Stain - Final 04/12/24 Unknown Tissue - Clearance Fragment Wound Culture - Final Staphylococcus aureus 04/12/24 Unknown Tissue - Clearance Fragment Anaerobic Culture - Final No anaerobic bacteria isolated. 04/11/24 14:31 Blood Culture (Wb) - Anticubital Right Blood Culture - Preliminary No growth in 48 hours. Radiography Diagnostic Testing: Radiology Impression Echocardiogram 04/14/24 21:20 Interpretation Summary The left ventricular ejection fraction is 55 %. Stage 1 diastolic dysfunction. Normal LV size. Structurally normal valves. Ordering Physician: Katia Carrizales Referring Physician: EMMA RUSSO Performed By: Chanda Madden RDCS Physical Exam Const alert, oriented x3 and no apparent distress Constitutional Narrative: Left foot s/p 5th ray debridement down to bone - tissue is viable but there is residual cellulitis extending to the midfoot dorsally and plantarly with continued improvement, there is no necrosis, no fluctuance, no crepitus, no maloder, wound distal left 1st toe down to subc tissue, no acute ischemia to the left foot or ankle. No evidence of DVT bilateral. Assessment & Plan Assessment/Plan (1) Acute osteomyelitis of left foot: (2) Non-pressure chronic ulcer of other part of left foot with necrosis of bone: PLAN: Plan Evaluation performed. s/p left foot debridement, left foot noted to be improved today - MRI was ordered and obtained for further evaluation - this was reviewed and no abscess or deeper infection noted He is on IV antibiotics vanc and zosyn and oral flagyl - ID on consult No weightbearing left foot Wound care left foot - Gauze packing and gauze dressing - keep clean, dry and intact at this time Hx of PAD - ordered new LEAS and arterial duplex studies for further evaluation - reviewed - vascular surgery on consult Podiatry will continue to follow
[2024-04-16 09:44] LABS: Anion Gap 9 (5-15); BUN 17 mg/dL (7-18); BUN/Creat Ratio 11.8 RATIO (10-20); Calcium,Total 9.2 mg/dL (8.5-10.1); Chloride 95 mmol/L (98-107); Creatinine, Serum 1.44 mg/dL (0.70-1.30); EST Glomerular Filtration Rate 52 mL/min (>60); Est Glom Filt Rate - Afr Amer 63 mL/min (>60); Estimated Creatinine Clearance 56.25 ml/min; Glucose 328 mg/dL (74-106); Potassium 3.8 mmol/L (3.5-5.1); Sodium Level 130 mmol/L (136-145)
--- NOTE | 2024-04-16 10:10 | PCM.PN.SRG ---
Subjective Subjective Patient was seen this morning resting in bed. Wound dressings just changed by podiatry and wound care nurse. He reports feeling better today than yesterday. He expresses that he would like to move forward with lower extremity angiogram now that he is cleared from cardiac standpoint. Objective Data Objective Data Vital Signs: Vital Signs Temp Pulse Resp BP Pulse Ox O2 Del Method O2 Flow Rate 99.0 F 89 16 126/63 H 94 Nasal Cannula 2 04/16/24 08:31 04/16/24 08:39 04/16/24 08:31 04/16/24 08:31 04/16/24 08:31 04/16/24 08:31 04/16/24 08:31 Oxygen Flow Rate (L/min) 2 Oxygen Delivery Method Nasal Cannula Weight: 202 lb 6.15 oz Body Mass Index (BMI) 30.7 Intake & Output: Intake and Output for Last 24 Hours 04/14/24 04/15/24 04/16/24 23:59 23:59 23:59 Intake Total 2613.0 / 2613.0 1149.00 / 1149.00 50 / 50 Output Total 1875 / 1875 325 / 325 Balance 2613.0 / 2313.0 -726.00 / -726.00 -275 / -275 Lab / Micro Data 04/16/24 06:54 04/16/24 06:54 Labs: Laboratory Results - last 24 hr 04/15/24 11:34: POC Glucose 251 H 04/15/24 16:10: POC Glucose 238 H 04/15/24 18:34: Vancomycin Trough 14.2 04/15/24 21:35: POC Glucose 410 H 04/16/24 06:11: POC Glucose 314 H 04/16/24 06:54: WBC 7.0, RBC 3.98 L, Hgb 11.1 L, Hct 33.5 L, MCV 84.2, MCH 27.9, MCHC 33.1, RDW Std Deviation 38.6, RDW Coeff of Divya 12.5, Plt Count 243, MPV 9.2, PT 14.5, INR 1.1, APTT 32.5, Sodium 130 L, Potassium 3.8, Chloride 95 L, Carbon Dioxide 26.0, Anion Gap 9, BUN 17, Creatinine 1.44 H, Estim Creat Clear Calc 56.25, Est GFR (MDRD) Af Amer 63, Est GFR (MDRD) Non-Af 52 L, BUN/Creatinine Ratio 11.8, Glucose 328 H, Calcium 9.2 Micro: Microbiology 04/12/24 Unknown Tissue - 5th Toe Gram Stain - Final 04/12/24 Unknown Tissue - 5th Toe Wound Culture - Final Staphylococcus aureus 04/12/24 Unknown Tissue - 5th Toe Anaerobic Culture - Final No anaerobic bacteria isolated. 04/11/24 19:20 Wound - Left Foot Gram Stain - Final 04/11/24 19:20 Wound - Left Foot Wound Culture - Final Staphylococcus aureus 04/11/24 19:20 Wound - Left Foot Anaerobic Culture - Final Anaerobic cocci 04/12/24 Unknown Tissue - Clearance Fragment Gram Stain - Final 04/12/24 Unknown Tissue - Clearance Fragment Wound Culture - Final Staphylococcus aureus 04/12/24 Unknown Tissue - Clearance Fragment Anaerobic Culture - Final No anaerobic bacteria isolated. 04/11/24 14:31 Blood Culture (Wb) - Anticubital Right Blood Culture - Preliminary No growth in 48 hours. Radiography Diagnostic Testing: Radiology Impression Echocardiogram 04/14/24 21:20 Interpretation Summary The left ventricular ejection fraction is 55 %. Stage 1 diastolic dysfunction. Normal LV size. Structurally normal valves. Ordering Physician: Katia Carrizales Referring Physician: EMMA RUSSO Performed By: Chanda Madden RDCS Physical Exam Const alert, oriented x3, no apparent distress and healthy appearing General Appearance: cooperative; Negative for combative or lethargic Orientation / Consciousness: awake Exam Limitations: no limitations HEENT Head and Scalp: normocephalic and atraumatic Eyes EOMs intact bilaterally General Eye: normal appearance of both eyes Neck full ROM, no lymphadenopathy and thyroid normal General: trachea midline; Negative for lymphadenopathy or tenderness Thyroid: thyroid normal Resp normal respiratory effort and no use of accessory muscles Effort and Inspection: Negative for labored, stridor or audible wheezes Cardio regular rate and regular rhythm Peripheral Pulses: brachial pulses present, radial pulses present and femoral pulses present Extremity full ROM and no clubbing, cyanosis or edema Skin no rashes or lesions noted Neuro oriented x3, CN's II-XII intact bilaterally, no focal motor deficits and no sensory deficits noted Psych thought process normal, cooperative, affect normal, speech normal and activity/motor behavior normal Assessment & Plan Assessment/Plan (1) Non-pressure chronic ulcer of other part of left foot with necrosis of bone: PLAN: Plan is now for LLE angiogram possible intervention on Thursday 04/19 at 1130 in the [employer] [facility]. He will need to be n.p.o. at midnight the night before. Continue aspirin and Plavix, no need to hold for procedure.
[2024-04-16] MEDS: oxyCODONE 5 MG Tablet 10 MG PO ×2 (10:56→16:56)
[2024-04-16] MEDS: Insulin Glargine-YFGN 100 UNIT/ML Pen 40 UNIT SC (10:58)
[2024-04-16 11:26] LABS: Bedside Glucose 332 mg/dL (74-106)
--- NOTE | 2024-04-16 13:42 | PN.ID_ITS ---
Physical Exam Narrative Feeling ok, no chest pain, mild dyspnea, no cough. No fever. Const alert and no apparent distress General Appearance: cooperative Resp normal air movement and clear to auscultation bilaterally Cardio regular rate and regular rhythm GI soft to palpation, non-tender and non-distended Skin Skin Narrative: no new rash ID ID: Route of nutrition/ use of supplements: [] Nutritional Intake: [] IV Site: [] Hawley Catheter: [] Assessment & Plan Assessment/Plan (1) Acute osteomyelitis of left foot: PLAN: Taken to OR 04/12/[address] Caba for I&D. Wound cx with mssa. Was narrowed to cefazolin and po flagyl, wrote for 6 week course, stop date with weekly labs, ID followup in 2-3 weeks. Now with NSTEMI, hypoxia, dyspnea. Abx broadened to vanc/zosyn for possible pneumonia. Had cath done, feeling better. Repeat cxr was clear, suspect pulm symptoms were cardiac not infectious in origin. Will stop vanc. Likely can go back to cefazolin/flagyl soon. Will follow (2) Diabetes mellitus: QUALIFIERS: Diabetes mellitus type: type 2 Diabetes mellitus exterminator insulin use: with jail use Diabetes mellitus complication status: with neurologic complications Diabetes mellitus complication detail: with polyneuropathy Qualified Code(s): E11.42 - Type 2 diabetes mellitus with diabetic polyneuropathy; Z79.4 - intermediate frame tender (current) use of insulin
--- NOTE | 2024-04-16 15:36 | PCM.PN.HOSP ---
Reason for Visit Reason for Visit: Left foot wound Subjective Subjective No issues overnight. States his breathing is better overall. Denies any significant coughing. We discussed that his vascular procedure on his left lower extremity will be on Friday and that he will be able to go home with home health probably on Friday or Friday depending on timing of his procedure. He voiced understanding. Had no complaints otherwise at this time. Objective Data Objective Data Vital Signs: Vital Signs Temp Pulse Resp BP Pulse Ox O2 Del Method O2 Flow Rate 96.8 F L 82 16 127/67 H 94 Nasal Cannula 2 04/16/24 14:36 04/16/24 14:36 04/16/24 14:36 04/16/24 14:36 04/16/24 14:36 04/16/24 14:36 04/16/24 14:36 Oxygen Flow Rate (L/min) 2 Oxygen Delivery Method Nasal Cannula Weight: 91.8 kg Body Mass Index (BMI) 30.7 Intake & Output: Intake and Output for Last 24 Hours 04/14/24 04/15/24 04/16/24 23:59 23:59 23:59 Intake Total 2613.0 / 2613.0 1149.00 / 1149.00 375 / 375 Output Total 1875 / 1875 325 / 325 Balance 2613.0 / 2313.0 -726.00 / -726.00 50 / 50 Lab / Micro Data 04/16/24 06:54 04/16/24 06:54 Labs: Laboratory Results - last 24 hr 04/15/24 16:10: POC Glucose 238 H 04/15/24 18:34: Vancomycin Trough 14.2 04/15/24 21:35: POC Glucose 410 H 04/16/24 06:11: POC Glucose 314 H 04/16/24 06:54: WBC 7.0, RBC 3.98 L, Hgb 11.1 L, Hct 33.5 L, MCV 84.2, MCH 27.9, MCHC 33.1, RDW Std Deviation 38.6, RDW Coeff of Divya 12.5, Plt Count 243, MPV 9.2, PT 14.5, INR 1.1, APTT 32.5, Sodium 130 L, Potassium 3.8, Chloride 95 L, Carbon Dioxide 26.0, Anion Gap 9, BUN 17, Creatinine 1.44 H, Estim Creat Clear Calc 56.25, Est GFR (MDRD) Af Amer 63, Est GFR (MDRD) Non-Af 52 L, BUN/Creatinine Ratio 11.8, Glucose 328 H, Calcium 9.2 04/16/24 10:56: POC Glucose 332 H Micro: Microbiology 04/11/24 14:31 Blood Culture (Wb) - Anticubital Right Blood Culture - Final No growth in 5 days. 04/12/24 Unknown Tissue - 5th Toe Gram Stain - Final 04/12/24 Unknown Tissue - 5th Toe Wound Culture - Final Staphylococcus aureus 04/12/24 Unknown Tissue - 5th Toe Anaerobic Culture - Final No anaerobic bacteria isolated. 04/11/24 19:20 Wound - Left Foot Gram Stain - Final 04/11/24 19:20 Wound - Left Foot Wound Culture - Final Staphylococcus aureus 04/11/24 19:20 Wound - Left Foot Anaerobic Culture - Final Anaerobic cocci 04/12/24 Unknown Tissue - Clearance Fragment Gram Stain - Final 04/12/24 Unknown Tissue - Clearance Fragment Wound Culture - Final Staphylococcus aureus 04/12/24 Unknown Tissue - Clearance Fragment Anaerobic Culture - Final No anaerobic bacteria isolated. Physical Exam Const alert, oriented x3, no apparent distress and well nourished; Negative for average body habitus or healthy appearing Constitutional Narrative: Obese, middle-aged, white male, sitting up in bed, appears comfortable, nontoxic, watching television, appears chronically ill but not acutely toxic HEENT head/scalp atraumatic, moist oral mucous membranes and oropharynx normal HEENT Narrative: Mallampati 3, no thrush Resp normal respiratory effort, no retractions, no use of accessory muscles and clear to auscultation bilaterally Auscultation: Negative for rales, rhonchi or wheezes Cardio regular rate, regular rhythm, S1 normal heart sound, S2 normal heart sound, no murmurs, no rub, no gallops and no clicks GI normal to inspection, nondistended, normoactive bowel sounds, soft to palpation and non-tender GI Narrative: Protuberant abdomen Extremity Extremity Narrative: Left lower extremity with postoperative dressing in place, cap refill delayed, pedal pulses on right lower extremity are 1+ Skin Skin Narrative: Bilateral lower extremity skin changes consistent with venous stasis and vascular disease, imaging from dressing change reviewed and there is ongoing erythema Neuro oriented x3, moves all extremities and no focal motor deficits Neuro Narrative: Decreased sensation bilateral feet Speech: speech normal Psych affect normal Psych Narrative: Interacts appropriately, pleasant Assessment & Plan Assessment/Plan (1) Non-pressure chronic ulcer of other part of left foot with necrosis of bone: (2) Acute osteomyelitis of left foot: PLAN: Plan Left fifth digit osteomyelitis/cellulitis right great toe secondary to MSSA -Postop day 4 debridement of nonviable and infected/necrotic tissue with fifth toe resection -Follow-up MRI was negative for any signs of infection so erythema was felt to be likely vasculature -Blood cultures are negative -Antibiotics were changed due to fever and respiratory distress --> antibiotics transition to Zosyn and Flagyl per infectious disease -If pulmonary symptoms remain stable will transition back to Ancef tomorrow -Infectious disease and podiatry are following-appreciate input -Wound care nurses following-appreciate assistance Acute hypoxia secondary to left lower lobe pneumonia -Patient developed fever and tachycardia with hypoxia and chest x-ray shows left-sided infiltrate -Continue Flagyl and Zosyn for now -Check a.m. chest x-ray -ID is following and will await input -Wean oxygen as able -Sputum culture was ordered but patient not able to produce as of yet NSTEMI -Cardiac catheterization showed disease however medical management was recommended -Continue statin -Continue beta-jose -Continue aspirin and Plavix Mild hyponatremia -Sodium 130 -Multifactorial with blood glucose this morning at 328 a -Adjusting insulins on a daily basis and reassess in a.m. GRZEGORZ on CKD stage IIIa -Baseline serum creatinine is between 1 and 1.2 -Serum creatinine stable at 1.44 -Monitor closely with antibiotic use -BMP in a.m. Hypomagnesemia - resolved [id number] -Hemoglobin A1c in 7.9 -Hold home oral agents -AM fasting blood sugars are markedly elevated at 328 however some of this elevation may be a stress response -With fasting blood sugars remaining markedly elevated will increase Lantus from 40 units daily to 30 units twice daily -Will hold off on prandial insulin at this time as patient has been n.p.o. on and off -Continue sliding scale -Accu-Cheks before meals and at bedtime -Cardiac/carb controlled diet Chronic microcytic anemia -Hemoglobin stable -Continue to monitor CBC Peripheral vascular disease -Had been following with Dr. Wells -Patient reports recent revascularization but unable to say exactly when this occurred--> thinks it was about 6 months ago -Minimal bleeding during surgical intervention for osteomyelitis -Vascular intervention planned for Friday -Continue aspirin 81 mg daily -Continue Plavix 75 mg daily CAD/essential HTN/HPL -History of CABG x 3 08/21/2022 -Continue aspirin and Plavix -Blood pressures have now fairly consistently been at goal -Continue metoprolol 25 mg daily -Continue amlodipine 10 mg daily -Continue home statin -Patient has not been compliant in states he was going to be started on injection medication for his cholesterol however insurance denied it and he never restarted his pills as he did not have any more at home and did not call and ask for more History of asthma -Continue as needed albuterol inhaler Anxiety/depression -Continue home duloxetine Obesity -Recommend weight loss -BMI 30.8 -Complicate treatment, prognosis, outcomes DVT prophylaxis -Restart subcu Lovenox CODE STATUS -Full as verified Charges/Coding Visit Charges Inpatient E&M: 84776 Subs Hosp L2
[2024-04-16 17:19] LABS: Bedside Glucose 376 mg/dL (74-106)
[2024-04-16] MEDS: Atorvastatin Calcium 40 MG Tablet PO (21:02)
[2024-04-16] MEDS: 0.9% Saline Lock 10 ML Syringe IV (21:04)
[2024-04-16] MEDS: Insulin Glargine-YFGN 100 UNIT/ML Pen 30 UNIT SC (21:19)
[2024-04-16 21:45] LABS: Bedside Glucose 320 mg/dL (74-106)
[2024-04-17] VITALS (10 sets, daily range): BP systolic 124–146; BP diastolic 65–93; PULSE 77–85; RESP 16–20; TEMP 36.3–36.8; O2SAT 91–95
[2024-04-17] MEDS: oxyCODONE 5 MG Tablet 10 MG PO ×3 (02:27→20:52)
[2024-04-17] MEDS: Enoxaparin 40 MG/0.4 ML Syringe SC (05:48)
[2024-04-17] MEDS: Piperacil/Tazobactam 3.375 GM in 0.9% Normal Saline (50mL MB+) 50 ML IV ×2 (05:55→13:41)
[2024-04-17] MEDS: 0.9% Saline Lock 10 ML Syringe IV (05:56)
--- NOTE | 2024-04-17 06:30 | RAD_ITS ---
INDICATION: PNA EXAMINATION/TECHNIQUE: X-RAY - XR Chest 1 View AP portable. 6:23 AM COMPARISON: 04/15/2024 FINDINGS: LINES/DEVICES: None. LUNGS: No consolidation. No pneumothorax. MEDIASTINUM: Unremarkable. CARDIAC SILHOUETTE: Not enlarged. Sternal wires. BONES AND SOFT TISSUES: No acute abnormalities. RAD/Chest 1 View (Portable) IMPRESSION: No acute findings. Electronically Signed: Martha Garcia MD at 7:52 EDT ,
[2024-04-17] MEDS: Insulin Lispro 100 UNIT/ML INSULN.PEN SC ×4 (06:32→20:50)
[2024-04-17 06:42] LABS: Bedside Glucose 267 mg/dL (74-106)
[2024-04-17 07:06] LABS: Anion Gap 9 (5-15); BUN 16 mg/dL (7-18); BUN/Creat Ratio 13.3 RATIO (10-20); Chloride 96 mmol/L (98-107); EST Glomerular Filtration Rate 65 mL/min (>60); Est Glom Filt Rate - Afr Amer 78 mL/min (>60); Glucose 297 mg/dL (74-106); Potassium 3.3 mmol/L (3.5-5.1); Sodium Level 132 mmol/L (136-145)
[2024-04-17] MEDS: Ipratropium/Albuterol Sulfate 3 ML AMPUL.NEB INHALATION ×3 (07:43→19:33)
[2024-04-17] MEDS: Acetaminophen 500 MG Tablet 1000 MG PO ×2 (08:07→20:53)
[2024-04-17] MEDS: Morphine 4 MG/ML Syringe IV (09:24)
[2024-04-17] MEDS: Fluticasone 0.05% 1 SPRAY NASAL.SRY NASAL (09:25)
[2024-04-17] MEDS: Insulin Glargine-YFGN 100 UNIT/ML Pen 30 UNIT SC (09:25)
[2024-04-17] MEDS: Clopidogrel Bisulfate 75 MG Tablet PO (09:26)
[2024-04-17] MEDS: Metoprolol Tartrate 25 MG Tablet PO ×2 (09:26→20:49)
[2024-04-17] MEDS: DULoxetine Hcl 20 MG Capsule PO (09:26)
[2024-04-17] MEDS: amLODIPine 10 MG Tablet PO (09:27)
[2024-04-17] MEDS: Pantoprazole Sodium 40 MG Tablet PO (09:27)
[2024-04-17] MEDS: guaiFENesin 1,200 MG Tablet 1200 MG PO ×2 (09:27→20:49)
[2024-04-17] MEDS: Ferrous Sulfate 325 MG Tablet PO (09:27)
[2024-04-17] MEDS: Aspirin E.C. 81 MG Tablet PO (09:27)
[2024-04-17 11:55] LABS: Bedside Glucose 303 mg/dL (74-106)
--- NOTE | 2024-04-17 13:07 | PN_ITS ---
Subjective Subjective Patient was seen today for follow up on his left foot - he is resting in bed, no new complaints, no complaints of f/c/n/v. Objective Data Objective Data Vital Signs: Vital Signs Temp Pulse Resp BP Pulse Ox O2 Del Method O2 Flow Rate 97.3 F L 78 18 124/69 H 93 Room Air 2 04/17/24 09:11 04/17/24 09:26 04/17/24 09:11 04/17/24 09:11 04/17/24 10:00 04/17/24 10:00 04/17/24 08:21 Oxygen Flow Rate (L/min) 2 Oxygen Delivery Method Room Air Weight: 91.8 kg Body Mass Index (BMI) 30.7 Intake & Output: Intake and Output for Last 24 Hours 04/15/24 04/16/24 04/17/24 23:59 23:59 23:59 Intake Total 1149.00 / 1149.00 925 / 925 940 / 940 Output Total 1875 / 1875 625 / 625 450 / 450 Balance -726.00 / -726.00 300 / 300 490 / 490 Lab / Micro Data 04/16/24 06:54 04/17/24 05:40 Labs: Laboratory Results - last 24 hr 04/16/24 16:56: POC Glucose 376 H 04/16/24 21:17: POC Glucose 320 H 04/17/24 05:40: Sodium 132 L, Potassium 3.3 L, Chloride 96 L, Carbon Dioxide 27.0, Anion Gap 9, BUN 16, Creatinine 1.20, Estim Creat Clear Calc 67.50, Est GFR (MDRD) Af Amer 78, Est GFR (MDRD) Non-Af 65, BUN/Creatinine Ratio 13.3, G lucose 297 H, Calcium 9.0 04/17/24 06:24: POC Glucose 267 H 04/17/24 11:32: POC Glucose 303 H Micro: Microbiology 04/11/24 14:31 Blood Culture (Wb) - Anticubital Right Blood Culture - Final No growth in 5 days. 04/12/24 Unknown Tissue - 5th Toe Gram Stain - Final 04/12/24 Unknown Tissue - 5th Toe Wound Culture - Final Staphylococcus aureus 04/12/24 Unknown Tissue - 5th Toe Anaerobic Culture - Final No anaerobic bacteria isolated. 04/11/24 19:20 Wound - Left Foot Gram Stain - Final 04/11/24 19:20 Wound - Left Foot Wound Culture - Final Staphylococcus aureus 04/11/24 19:20 Wound - Left Foot Anaerobic Culture - Final Anaerobic cocci 04/12/24 Unknown Tissue - Clearance Fragment Gram Stain - Final 04/12/24 Unknown Tissue - Clearance Fragment Wound Culture - Final Staphylococcus aureus 04/12/24 Unknown Tissue - Clearance Fragment Anaerobic Culture - Final No anaerobic bacteria isolated. Radiography Diagnostic Testing: Radiology Impression Chest X-Ray 04/17/24 06:30 IMPRESSION: No acute findings. Electronically Signed: Martha Garcia MD at 7:52 EDT , Physical Exam Const alert, oriented x3 and no apparent distress Constitutional Narrative: Left foot s/p 5th ray debridement down to bone - tissue is viable but residual cellulitis significantly improved, there is no necrosis, no fluctuance, no crepitus, no maloder, wound distal left 1st toe down to subc tissue is healing, no acute ischemia to the left foot or ankle. No evidence of DVT bilateral. Assessment & Plan Assessment/Plan (1) Acute osteomyelitis of left foot: (2) Non-pressure chronic ulcer of other part of left foot with necrosis of bone: PLAN: Plan Evaluation performed. s/p left foot debridement, left foot continues to improve He is on IV antibiotics vanc and zosyn and oral flagyl - ID on consult No weightbearing left foot Wound care left foot - Gauze packing and gauze dressing - change daily PAD - vascular surgery on consult and planning intervention on Friday Podiatry will continue to follow
--- NOTE | 2024-04-17 14:14 | PCM.PN.HOSP ---
Reason for Visit Reason for Visit: Left foot wound Subjective Subjective No issues overnight. Patient states his breathing is getting better overall. Intermittently he has been noncompliant placing weight on his left foot. We did discuss again today the importance of following instructions with regards to healing. Objective Data Objective Data Vital Signs: Vital Signs Temp Pulse Resp BP Pulse Ox O2 Del Method O2 Flow Rate 97.3 F L 85 20 H 124/69 H 93 Nasal Cannula 2 04/17/24 09:11 04/17/24 13:17 04/17/24 13:17 04/17/24 09:11 04/17/24 10:00 04/17/24 13:12 04/17/24 13:12 Oxygen Flow Rate (L/min) 2 Oxygen Delivery Method Nasal Cannula Weight: 91.8 kg Body Mass Index (BMI) 30.7 Intake & Output: Intake and Output for Last 24 Hours 04/15/24 04/16/24 04/17/24 23:59 23:59 23:59 Intake Total 1149.00 / 1149.00 925 / 925 940 / 940 Output Total 1875 / 1875 625 / 625 450 / 450 Balance -726.00 / -726.00 300 / 300 490 / 490 Lab / Micro Data 04/16/24 06:54 04/17/24 05:40 Labs: Laboratory Results - last 24 hr 04/16/24 16:56: POC Glucose 376 H 04/16/24 21:17: POC Glucose 320 H 04/17/24 05:40: Sodium 132 L, Potassium 3.3 L, Chloride 96 L, Carbon Dioxide 27.0, Anion Gap 9, BUN 16, Creatinine 1.20, Estim Creat Clear Calc 67.50, Est GFR (MDRD) Af Amer 78, Est GFR (MDRD) Non-Af 65, BUN/Creatinine Ratio 13.3, Glucose 297 H, Calcium 9.0 04/17/24 06:24: POC Glucose 267 H 04/17/24 11:32: POC Glucose 303 H Micro: Microbiology 04/11/24 14:31 Blood Culture (Wb) - Anticubital Right Blood Culture - Final No growth in 5 days. 04/12/24 Unknown Tissue - 5th Toe Gram Stain - Final 04/12/24 Unknown Tissue - 5th Toe Wound Culture - Final Staphylococcus aureus 04/12/24 Unknown Tissue - 5th Toe Anaerobic Culture - Final No anaerobic bacteria isolated. 04/11/24 19:20 Wound - Left Foot Gram Stain - Final 04/11/24 19:20 Wound - Left Foot Wound Culture - Final Staphylococcus aureus 04/11/24 19:20 Wound - Left Foot Anaerobic Culture - Final Anaerobic cocci 04/12/24 Unknown Tissue - Clearance Fragment Gram Stain - Final 04/12/24 Unknown Tissue - Clearance Fragment Wound Culture - Final Staphylococcus aureus 04/12/24 Unknown Tissue - Clearance Fragment Anaerobic Culture - Final No anaerobic bacteria isolated. Radiography Diagnostic Testing: Radiology Impression Chest X-Ray 04/17/24 06:30 IMPRESSION: No acute findings. Electronically Signed: Martha Garcia MD at 7:52 EDT , Physical Exam Const alert, oriented x3, no apparent distress and well nourished; Negative for average body habitus or healthy appearing Constitutional Narrative: Obese, middle-aged, white male, in the bathroom upon my arrival and when he comes back to bed he is not maintaining nonweightbearing status on his left lower extremity, mother at the bedside, patient does not appear toxic HEENT head/scalp atraumatic, moist oral mucous membranes and oropharynx normal HEENT Narrative: Mallampati 3, no thrush Resp normal respiratory effort, no retractions, no use of accessory muscles and clear to auscultation bilaterally Auscultation: Negative for rales, rhonchi or wheezes Cardio regular rate, regular rhythm, S1 normal heart sound, S2 normal heart sound, no murmurs, no rub, no gallops and no clicks GI normal to inspection, nondistended, normoactive bowel sounds, soft to palpation and non-tender GI Narrative: Protuberant abdomen Extremity Extremity Narrative: Left lower extremity with postoperative dressing in place, cap refill delayed, pedal pulses on right lower extremity are 1+ Neuro oriented x3, moves all extremities and no focal motor deficits Neuro Narrative: Decreased sensation bilateral feet Speech: speech normal Psych affect normal Psych Narrative: Interacts appropriately, pleasant Assessment & Plan Assessment/Plan (1) Non-pressure chronic ulcer of other part of left foot with necrosis of bone: (2) Acute osteomyelitis of left foot: PLAN: Plan Left fifth digit osteomyelitis/cellulitis right great toe secondary to MSSA -Postop day 5 debridement of nonviable and infected/necrotic tissue with fifth toe resection -Follow-up MRI was negative for any signs of infection so erythema was felt to be likely vasculature -Blood cultures are negative -Transition back to Ancef 2 g every 8 hours and continue p.o. Flagyl -Patient has right upper extremity midline in place and is ready for discharge with regards to vascular access for ongoing antibiotics -Plan is for a 6-week course of both antibiotics with ID follow-up in 2 to 3 weeks -Infectious disease and podiatry are following-appreciate input -Wound care nurses following-appreciate assistance Acute hypoxia secondary to left lower lobe pneumonia -Hypoxia and fever resolved -Will transition back to Ancef and continue Flagyl -Chest x-ray today shows resolution of left lower lobe infiltrate -Wean oxygen as able NSTEMI -Cardiac catheterization showed occluded third obtuse marginal branch which is likely the culprit vessel with preserved LV systolic function and medical management was recommended -Continue statin -Continue beta-jose -Continue aspirin and Plavix Mild hyponatremia -Sodium up to 132 today -Multifactorial with blood glucose this morning at 328 a -Adjusting insulins on a daily basis and reassess in a.m. Hypokalemia -40 mill equivalents p.o. potassium given -Recheck in a.m. GRZEGORZ on CKD stage IIIa -Baseline serum creatinine is between 1 and 1.2 -Serum creatinine stable at 1.20 -Monitor closely with antibiotic use -BMP in a.m. Hypomagnesemia - resolved [id number] -Hemoglobin A1c in 7.9 on 04/11/2024 and patient is only on oral agents at this time that we have verified -Trying to verify further who started it -Hold home oral agents -AM fasting blood sugars are markedly elevated at 297 however some of this elevation may be a stress response -With fasting blood sugars remaining markedly elevated will increase Lantus from 30 units twice daily to 40 units twice daily -Will hold off on prandial insulin at this time as patient has been n.p.o. on and off -Continue sliding scale which is at high dose -Accu-Cheks before meals and at bedtime -Cardiac/carb controlled diet Chronic microcytic anemia -Hemoglobin stable -Continue to monitor CBC Peripheral vascular disease -Had been following with Dr. Wells -Patient reports recent revascularization but unable to say exactly when this occurred--> thinks it was about 6 months ago -Minimal bleeding during surgical intervention for osteomyelitis -Vascular intervention planned for Friday -Continue aspirin 81 mg daily -Continue Plavix 75 mg daily CAD/essential HTN/HPL -History of CABG x 3 08/21/2022 -Continue aspirin and Plavix -Blood pressures have now fairly consistently been at goal -Continue metoprolol 25 mg daily -Will discontinue amlodipine 10 mg daily and transition to lisinopril 20 mg daily as there will be more medical benefit for him to be on an MARISSA inhibitor with his history of coronary artery disease and diabetes and there is no documented allergy -Continue home statin -Patient has not been compliant in states he was going to be started on injection medication for his cholesterol however insurance denied it and he never restarted his pills as he did not have any more at home and did not call and ask for more History of asthma -Continue as needed albuterol inhaler Anxiety/depression -Continue home duloxetine Obesity -Recommend weight loss -BMI 30.8 -Complicate treatment, prognosis, outcomes DVT prophylaxis -Continue subcu Lovenox CODE STATUS -Full as verified Charges/Coding Visit Charges Inpatient E&M: 11181 Subs Hosp L2
[2024-04-17 16:51] LABS: Bedside Glucose 276 mg/dL (74-106)
[2024-04-17] MEDS: Atorvastatin Calcium 40 MG Tablet PO (20:49)
[2024-04-17] MEDS: Insulin Glargine-YFGN 100 UNIT/ML Pen 40 UNIT SC (20:50)
[2024-04-17] MEDS: Cefazolin 2 GM in 0.9% Normal Saline (100mL Bag) 100 ML IV (20:51)
[2024-04-17 21:36] LABS: Bedside Glucose 253 mg/dL (74-106)
[2024-04-18] VITALS (9 sets, daily range): BP systolic 134–164; BP diastolic 60–80; PULSE 66–85; RESP 12–18; TEMP 35.7–36.7; O2SAT 93–98
[2024-04-18] MEDS: oxyCODONE 5 MG Tablet 10 MG PO ×2 (04:52→20:37)
[2024-04-18] MEDS: Acetaminophen 500 MG Tablet 1000 MG PO ×2 (04:52→20:38)
[2024-04-18] MEDS: Cefazolin 2 GM in 0.9% Normal Saline (100mL Bag) 100 ML IV ×3 (06:00→21:39)
[2024-04-18] MEDS: 0.9% Saline Lock 10 ML Syringe IV (06:01)
[2024-04-18] MEDS: Insulin Lispro 100 UNIT/ML INSULN.PEN SC ×4 (06:01→21:39)
[2024-04-18] MEDS: Enoxaparin 40 MG/0.4 ML Syringe SC (06:02)
[2024-04-18 06:35] LABS: Hematocrit 32.4 % (40-54); Hemoglobin 10.7 g/dL (13.0-16.5); Mean Corpuscular Hgb 27.9 pg (27.0-32.0); Mean Corpuscular Volume 84.4 fL (80-94); Mean Platelet Vol. 9.3 fl (6.2-12.0); Platelet Count 245 K/mm3 (150-450); RBC Distribution Width CV 12.6 % (11.6-14.6); RBC Distribution Width SD 38.4 fl (35.1-43.9); Red Blood Count 3.84 M/mm3 (4.6-6.2); White Blood Count 5.9 K/mm3 (4.4-11.0)
[2024-04-18 06:54] LABS: Anion Gap 6 (5-15); BUN 10 mg/dL (7-18); BUN/Creat Ratio 9.9 RATIO (10-20); Calcium,Total 9.2 mg/dL (8.5-10.1); Chloride 100 mmol/L (98-107); Creatinine, Serum 1.01 mg/dL (0.70-1.30); EST Glomerular Filtration Rate 79 mL/min (>60); Est Glom Filt Rate - Afr Amer 95 mL/min (>60); Glucose 188 mg/dL (74-106); Potassium 3.3 mmol/L (3.5-5.1); Sodium Level 134 mmol/L (136-145)
[2024-04-18 07:03] LABS: Bedside Glucose 181 mg/dL (74-106)
[2024-04-18] MEDS: Ipratropium/Albuterol Sulfate 3 ML AMPUL.NEB INHALATION ×3 (07:23→22:40)
[2024-04-18] MEDS: Ferrous Sulfate 325 MG Tablet PO (08:12)
[2024-04-18] MEDS: Aspirin E.C. 81 MG Tablet PO (08:13)
[2024-04-18] MEDS: Lisinopril 20 MG Tablet PO (10:25)
[2024-04-18] MEDS: Clopidogrel Bisulfate 75 MG Tablet PO (10:27)
[2024-04-18] MEDS: Metoprolol Tartrate 25 MG Tablet PO ×2 (10:27→21:38)
[2024-04-18] MEDS: Pantoprazole Sodium 40 MG Tablet PO (10:27)
[2024-04-18] MEDS: DULoxetine Hcl 20 MG Capsule PO (10:27)
[2024-04-18] MEDS: guaiFENesin 1,200 MG Tablet 1200 MG PO ×2 (10:28→21:38)
[2024-04-18] MEDS: Fluticasone 0.05% 1 SPRAY NASAL.SRY NASAL (10:28)
[2024-04-18] MEDS: Sodium Chloride 0.65% 1 SPRAY SPRAY.BTL NASAL (11:21)
[2024-04-18] MEDS: Potassium Chloride Oral Tablet 20 MEQ 40 MEQ PO (11:21)
--- NOTE | 2024-04-18 12:05 | PCM.PROGNOTE ---
Subjective Subjective Patient was seen today for follow up on left foot. He is sitting up in chair with foot elevated. He relates he is overall feeling better. No f/c/n/v. Has vascular intervention planned for tomorrow. Objective Data Objective Data Vital Signs: Vital Signs Temp Pulse Resp BP Pulse Ox O2 Del Method O2 Flow Rate 96.2 F L 78 16 164/80 H 98 Room Air 2 04/18/24 08:03 04/18/24 10:27 04/18/24 08:03 04/18/24 08:03 04/18/24 08:03 04/18/24 08:03 04/17/24 13:12 Oxygen Flow Rate (L/min) 2 Oxygen Delivery Method Room Air Weight: 91.8 kg Body Mass Index (BMI) 30.7 Intake & Output: Intake and Output for Last 24 Hours 04/16/24 04/17/24 04/18/24 23:59 23:59 23:59 Intake Total 925 / 925 1100 / 1460 470 / 470 Output Total 625 / 625 450 / 450 600 / 600 Balance 300 / 300 650 / 1010 -130 / -130 Lab / Micro Data 04/18/24 05:50 04/18/24 05:50 Labs: Laboratory Results - last 24 hr 04/17/24 16:31: POC Glucose 276 H 04/17/24 20:47: POC Glucose 253 H 04/18/24 05:50: WBC 5.9, RBC 3.84 L, Hgb 10.7 L, Hct 32.4 L, MCV 84.4, MCH 27.9, MCHC 33.0, RDW Std Deviation 38.4, RDW Coeff of Divya 12.6, Plt Count 245, MPV 9.3, Sodium 134 L, Potassium 3.3 L, Chloride 100, Carbon Dioxide 28.0, Anion Gap 6, BUN 10, Creatinine 1.01, Estim Creat Clear Calc 80.20, Est GFR (MDRD) Af Amer 95, Est GFR (MDRD) Non-Af 79, BUN/Creatinine Ratio 9.9 L, Glucose 188 H, Calcium 9.2 04/18/24 05:58: POC Glucose 181 H Micro: Microbiology 04/11/24 14:31 Blood Culture (Wb) - Anticubital Right Blood Culture - Final No growth in 5 days. 04/12/24 Unknown Tissue - 5th Toe Gram Stain - Final 04/12/24 Unknown Tissue - 5th Toe Wound Culture - Final Staphylococcus aureus 04/12/24 Unknown Tissue - 5th Toe Anaerobic Culture - Final No anaerobic bacteria isolated. 04/11/24 19:20 Wound - Left Foot Gram Stain - Final 04/11/24 19:20 Wound - Left Foot Wound Culture - Final Staphylococcus aureus 04/11/24 19:20 Wound - Left Foot Anaerobic Culture - Final Anaerobic cocci 04/12/24 Unknown Tissue - Clearance Fragment Gram Stain - Final 04/12/24 Unknown Tissue - Clearance Fragment Wound Culture - Final Staphylococcus aureus 04/12/24 Unknown Tissue - Clearance Fragment Anaerobic Culture - Final No anaerobic bacteria isolated. Physical Exam Const alert, oriented x3 and no apparent distress Constitutional Narrative: Left foot s/p 5th ray debridement down to bone - tissue is viable but residual cellulitis significantly improved and almost resolved, there is no necrosis, no fluctuance, no crepitus, no maloder, wound distal left 1st toe down to subc tissue is healing, no acute ischemia to the left foot or ankle. No evidence of DVT bilateral. Assessment & Plan Assessment/Plan (1) Acute osteomyelitis of left foot: (2) Non-pressure chronic ulcer of other part of left foot with necrosis of bone: PLAN: Plan Evaluation performed. s/p left foot debridement, left foot continues to improve, cellulitis significantly improved He is on antibiotics - ID on consult No weightbearing left foot Wound care left foot - Gauze packing and gauze dressing - change daily PAD - vascular surgery on consult and planning intervention on Friday Podiatry will continue to follow
[2024-04-18] MEDS: Insulin Glargine-YFGN 100 UNIT/ML Pen 40 UNIT SC ×2 (12:26→21:38)
[2024-04-18 12:49] LABS: Bedside Glucose 262 mg/dL (74-106)
--- NOTE | 2024-04-18 13:54 | PCM.PN.HOSP ---
Reason for Visit Reason for Visit: Left foot wound Subjective Subjective Patient frustrated that he still here. Just awaiting his vascular surgery tomorrow and hopeful that he can go home tomorrow afternoon depending on timing. I did tell him and the possibility to go home tomorrow however would depend on the timing of his surgery. No new complaints today. States his breathing feels okay. Objective Data Objective Data Vital Signs: Vital Signs Temp Pulse Resp BP Pulse Ox O2 Del Method O2 Flow Rate 96.2 F L 85 16 164/80 H 98 Room Air 2 04/18/24 08:03 04/18/24 12:44 04/18/24 12:44 04/18/24 08:03 04/18/24 08:03 04/18/24 08:03 04/17/24 13:12 Oxygen Flow Rate (L/min) 2 Oxygen Delivery Method Room Air Weight: 91.8 kg Body Mass Index (BMI) 30.7 Intake & Output: Intake and Output for Last 24 Hours 04/16/24 04/17/24 04/18/24 23:59 23:59 23:59 Intake Total 925 / 925 1100 / 1460 470 / 470 Output Total 625 / 625 450 / 450 600 / 600 Balance 300 / 300 650 / 1010 -130 / -130 Lab / Micro Data 04/18/24 05:50 04/18/24 05:50 Labs: Laboratory Results - last 24 hr 04/17/24 16:31: POC Glucose 276 H 04/17/24 20:47: POC Glucose 253 H 04/18/24 05:50: WBC 5.9, RBC 3.84 L, Hgb 10.7 L, Hct 32.4 L, MCV 84.4, MCH 27.9, MCHC 33.0, RDW Std Deviation 38.4, RDW Coeff of Divya 12.6, Plt Count 245, MPV 9.3, Sodium 134 L, Potassium 3.3 L, Chloride 100, Carbon Dioxide 28.0, Anion Gap 6, BUN 10, Creatinine 1.01, Estim Creat Clear Calc 80.20, Est GFR (MDRD) Af Amer 95, Est GFR (MDRD) Non-Af 79, BUN/Creatinine Ratio 9.9 L, Glucose 188 H, Calcium 9.2 04/18/24 05:58: POC Glucose 181 H 04/18/24 12:24: POC Glucose 262 H Micro: Microbiology 04/11/24 14:31 Blood Culture (Wb) - Anticubital Right Blood Culture - Final No growth in 5 days. 04/12/24 Unknown Tissue - 5th Toe Gram Stain - Final 04/12/24 Unknown Tissue - 5th Toe Wound Culture - Final Staphylococcus aureus 04/12/24 Unknown Tissue - 5th Toe Anaerobic Culture - Final No anaerobic bacteria isolated. 04/11/24 19:20 Wound - Left Foot Gram Stain - Final 04/11/24 19:20 Wound - Left Foot Wound Culture - Final Staphylococcus aureus 04/11/24 19:20 Wound - Left Foot Anaerobic Culture - Final Anaerobic cocci 04/12/24 Unknown Tissue - Clearance Fragment Gram Stain - Final 04/12/24 Unknown Tissue - Clearance Fragment Wound Culture - Final Staphylococcus aureus 04/12/24 Unknown Tissue - Clearance Fragment Anaerobic Culture - Final No anaerobic bacteria isolated. Physical Exam Const alert, oriented x3, no apparent distress and well nourished; Negative for average body habitus or healthy appearing Constitutional Narrative: Obese, middle-aged, white male, sitting up in a chair at the bedside, watching television, appears comfortable, nontoxic HEENT head/scalp atraumatic, moist oral mucous membranes and oropharynx normal HEENT Narrative: Mallampati is 3, edentulous, no thrush Resp normal respiratory effort, no retractions, no use of accessory muscles and clear to auscultation bilaterally Auscultation: Negative for rales, rhonchi or wheezes Cardio regular rate, regular rhythm, S1 normal heart sound, S2 normal heart sound, no murmurs, no rub, no gallops and no clicks GI normal to inspection, nondistended, normoactive bowel sounds, soft to palpation and non-tender GI Narrative: Protuberant abdomen Extremity Extremity Narrative: Left lower extremity with postoperative dressing in place, cap refill delayed, pedal pulses on right lower extremity are 1+ Skin Skin Narrative: Bilateral lower extremity skin changes consistent with venous stasis and vascular disease, imaging from dressing change reviewed and there is ongoing erythema Neuro oriented x3, moves all extremities and no focal motor deficits Neuro Narrative: Decreased sensation bilateral feet Speech: speech normal Psych affect normal Psych Narrative: Interacts appropriately, pleasant Assessment & Plan Assessment/Plan (1) Non-pressure chronic ulcer of other part of left foot with necrosis of bone: (2) Acute osteomyelitis of left foot: PLAN: Plan Left fifth digit osteomyelitis/cellulitis right great toe secondary to MSSA -Postop day 6 debridement of nonviable and infected/necrotic tissue with fifth toe resection -Follow-up MRI was negative for any signs of infection so erythema was felt to be likely vasculature -Blood cultures are negative -Continue Ancef 2 g every 8 hours and continue p.o. Flagyl -Patient has right upper extremity midline in place and is ready for discharge with regards to vascular access for ongoing antibiotics -Plan is for a 6-week course of both antibiotics with ID follow-up in 2 to 3 weeks -Infectious disease and podiatry are following-appreciate input -Wound care nurses following-appreciate assistance Acute hypoxia secondary to left lower lobe pneumonia -Resolved NSTEMI -Cardiac catheterization showed occluded third obtuse marginal branch which is likely the culprit vessel with preserved LV systolic function and medical management was recommended -Continue statin -Continue beta-jose -Continue aspirin and Plavix Mild hyponatremia -Sodium up to 134 today -Adjusting insulins on a daily basis and reassess in a.m. Hypokalemia -40 mill equivalents p.o. potassium given again today -Recheck in a.m. -Will get a.m. magnesium level CKD stage IIIa -GRZEGORZ resolved -Baseline serum creatinine is between 1 and 1.2 -Serum creatinine stable at 1.20 -Monitor closely with antibiotic use -BMP in a.m. Hypomagnesemia - resolved [id number] -Hemoglobin A1c in 7.9 on 04/11/2024 and patient is only on oral agents at this time that we have verified -Hold home oral agents -Fasting blood sugar today much better at 188 will continue 40 units twice daily for now -Home-going needs are uncertain at this time as his A1c was not markedly off on his home oral medications however acute elevation may be related to infection -Will hold off on prandial insulin at this time as patient has been n.p.o. on and off -Continue sliding scale which is at high dose -Accu-Cheks before meals and at bedtime -Cardiac/carb controlled diet Chronic microcytic anemia -Hemoglobin stable -Continue to monitor CBC Peripheral vascular disease -Had been following with Dr. Wells -Patient reports recent revascularization and was done 6 months ago -Minimal bleeding during surgical intervention for osteomyelitis -Vascular intervention planned for Friday left lower extremity -Continue aspirin 81 mg daily -Continue Plavix 75 mg daily CAD/essential HTN/HPL -History of CABG x 3 08/21/2022 -Continue aspirin and Plavix -Blood pressures have now fairly consistently been at goal -Continue metoprolol 25 mg daily -Increase lisinopril to 30 mg daily -Continue home statin -Patient has not been compliant in states he was going to be started on injection medication for his cholesterol however insurance denied it and he never restarted his pills as he did not have any more at home and did not call and ask for more History of asthma -Continue as needed albuterol inhaler Anxiety/depression -Continue home duloxetine Obesity -Recommend weight loss -BMI 30.8 -Complicate treatment, prognosis, outcomes DVT prophylaxis -Continue subcu Lovenox CODE STATUS -Full as verified Disposition -Hopeful for discharge tomorrow with home health care after vascular surgery intervention to left lower extremity. Patient aware that it may not be until Friday depending on timing of intervention. Charges/Coding Visit Charges Inpatient E&M: 21981 Subs Hosp L2
[2024-04-18 16:38] LABS: Bedside Glucose 207 mg/dL (74-106)
[2024-04-18] MEDS: Atorvastatin Calcium 40 MG Tablet PO (21:38)
[2024-04-18 22:06] LABS: Bedside Glucose 274 mg/dL (74-106)
[2024-04-19] VITALS (20 sets, daily range): BP systolic 109–179; BP diastolic 59–125; PULSE 66–94; RESP 16–18; TEMP 36.6–37; O2SAT 95–100
--- NOTE | 2024-04-19 05:55 | EKG12_ITS ---
Test Reason : AM EKG Blood Pressure : / mmHG Vent. Rate : 074 BPM Atrial Rate : 074 BPM P-R Int : 168 ms QRS Dur : 084 ms QT Int : 384 ms P-R-T Axes : 017 004 160 degrees QTc Int : 426 ms Normal sinus rhythm Inferior infarct (cited on or before 15-APR-2024) ST & T wave abnormality, consider anterolateral ischemia Abnormal ECG When compared with ECG of 15-APR-2024 05:36, No significant change was found Confirmed by AZAEL MARCUS, JESSICA ([id number]), continuity editor HERNAN JACINTO ([id number]) on 04/19/2024 2:50:49 PM Referred By: JARAD Confirmed By:JESSICA ADDISON MD
[2024-04-19] MEDS: Cefazolin 2 GM in 0.9% Normal Saline (100mL Bag) 100 ML IV ×2 (06:38→15:28)
[2024-04-19] MEDS: Lisinopril 10 MG Tablet 30 MG PO (06:39)
[2024-04-19] MEDS: Aspirin E.C. 81 MG Tablet PO (06:39)
[2024-04-19] MEDS: oxyCODONE 5 MG Tablet 10 MG PO ×2 (06:39→20:51)
[2024-04-19] MEDS: Clopidogrel Bisulfate 75 MG Tablet PO (06:39)
[2024-04-19] MEDS: Metoprolol Tartrate 25 MG Tablet PO ×2 (06:40→20:34)
[2024-04-19 07:03] LABS: Bedside Glucose 148 mg/dL (74-106)
[2024-04-19] MEDS: Ipratropium/Albuterol Sulfate 3 ML AMPUL.NEB INHALATION ×2 (07:21→19:40)
[2024-04-19 07:23] LABS: Anion Gap 10 (5-15); BUN 9 mg/dL (7-18); BUN/Creat Ratio 8.9 RATIO (10-20); Calcium,Total 9.4 mg/dL (8.5-10.1); Chloride 103 mmol/L (98-107); Creatinine, Serum 1.01 mg/dL (0.70-1.30); EST Glomerular Filtration Rate 79 mL/min (>60); Est Glom Filt Rate - Afr Amer 95 mL/min (>60); Glucose 144 mg/dL (74-106); Magnesium 1.7 mg/dL (1.6-2.6); Potassium 3.6 mmol/L (3.5-5.1); Sodium Level 137 mmol/L (136-145)
--- NOTE | 2024-04-19 08:27 | EKG12_ITS ---
Test Reason : PREOP Blood Pressure : / mmHG Vent. Rate : 068 BPM Atrial Rate : 068 BPM P-R Int : 164 ms QRS Dur : 086 ms QT Int : 416 ms P-R-T Axes : 006 -05 161 degrees QTc Int : 442 ms Normal sinus rhythm Inferior infarct , age undetermined Possible Anterior infarct , age undetermined ST & T wave abnormality, consider lateral ischemia Abnormal ECG When compared with ECG of 19-APR-2024 05:04, MANUAL COMPARISON REQUIRED, DATA IS UNCONFIRMED Confirmed by AZAEL MARCUS, JESSICA ([id number]), commissioning editor NEELIMA NAM ([id number]) on 04/20/2024 6:17:36 AM Referred By: Confirmed By:JESSICA ADDISON MD
[2024-04-19] MEDS: Fluticasone 0.05% 1 SPRAY NASAL.SRY NASAL (08:52)
[2024-04-19] MEDS: 0.9% Saline Lock 10 ML Syringe IV ×2 (08:57→15:28)
--- NOTE | 2024-04-19 10:52 | WOUNDNOTE ---
wound photo: left foot
--- NOTE | 2024-04-19 10:53 | WOUNDNOTE ---
wound photo: left foot
[2024-04-19 13:28] LABS: ACT Activated Clotting Time 238 sec (74-137)
[2024-04-19] MEDS: Pantoprazole Sodium 40 MG Tablet PO (15:19)
[2024-04-19] MEDS: DULoxetine Hcl 20 MG Capsule PO (15:19)
[2024-04-19] MEDS: guaiFENesin 1,200 MG Tablet 1200 MG PO ×2 (15:19→20:37)
[2024-04-19] MEDS: Ferrous Sulfate 325 MG Tablet PO (15:19)
[2024-04-19 15:40] LABS: Bedside Glucose 116 mg/dL (74-106)
--- NOTE | 2024-04-19 16:00 | CASEMGMT ---
Late Entry: REJI PHILLIPS updated [facility] that patient is anticipated to discharge tomorrow. Per Amanda at [facility], they are able to do start of care Friday morning. REJI PHILLIPS updated [facility] for ATB setup and sent updated clinicals. RN CM in to discuss discharge planning with patient and update regarding [facility] start of care, mother at bedside. Patient inquired about daily dressing changes and states that he is not able to do them as it is too bloody and gory for him to complete. RN CM inquired if mother would be teachable to assist with dressing changes. Mother states she is 86 yo and lives in [place] and she is not able to complete dressing changes. RN CM inquired if patient had other family or friends that would be able to assist. Patient states he does not. Patient inquired if C would be able to come everyday to complete changes. RN CM advised patient that [facility] may only be able to come 3 times per week at the most and this RN CM could not guarantee HHC coming even that often. RN CM educated patient regarding importance of completing dressing changes and IV ATBs to ensure proper wound healing and that if not completed as recommended by podiatry, that patient is as risk for further injury and infection to foot. RN CM also educated patient if he is not able to complete wound care and IV ATBs as recommend that he may need to consider going to a SNF at discharge. Patient adamant that he will not go to a SNF at discharge and to have this RN CM inquire how often HHC could come to complete changes. Patient states that with his previous surgery, dressing changes were completed every other day. RN CM called [facility] and inquired how often they would be able to see patient for wound care. Per Amanda, they could possibly see patient MWF. RN CM updated [facility] and inquired if wound care could be MWF. Per Dr. Caba, dressing changes need to be completed daily. Dr Caba recommended patient go to SNF to complete wound care and IV ATBs. RN JACQUELINE updated Dr. Caba that patient is refusing to go to SNF and that this RN CM educated patient on the risk of not completing wound care as recommended. REJI PHILLIPS asked if Dr. Caba would be able to have a discussion with patient regarding dressing changes and recommendation for SNF, Dr Caba stated he would talk with patient. CM will continue to follow this patient and plan for a safe discharge.
--- NOTE | 2024-04-19 16:54 | PN.HOSP_ITS ---
Reason for Visit Reason for Visit: Diagnoses Type 2 diabetes mellitus with diabetic polyneuropathy (04/11/24) Hyperlipidemia, unspecified (04/11/24) Essential (primary) hypertension (04/11/24) Non-ST elevation (NSTEMI) myocardial infarction (04/11/24) Non-pressure chronic ulcer of other part of left foot with necrosis of bone (04/11/24) Other acute osteomyelitis, left ankle and foot (04/11/24) group home (current) use of insulin (04/11/24) Presence of aortocoronary bypass graft (04/11/24) Subjective Subjective Patient seen post angiogram, reports he is frustrated with the whole process of being here and is anxious to go home, discussed that home health will start Friday so he will likely be able to discharge tomorrow and he verbalized his understanding. Supportive care provided Objective Data Objective Data Vital Signs: Vital Signs Temp Pulse Resp BP Pulse Ox O2 Del Method O2 Flow Rate 98.6 F 86 16 128/68 H 96 Room Air 2 04/19/24 15:30 04/19/24 15:30 04/19/24 15:30 04/19/24 15:30 04/19/24 15:30 04/19/24 15:30 04/17/24 13:12 Oxygen Flow Rate (L/min) 2 Oxygen Delivery Method Room Air Weight: 91.8 kg Body Mass Index (BMI) 30.7 Intake & Output: Intake and Output for Last 24 Hours 04/17/24 04/18/24 04/19/24 23:59 23:59 23:59 Intake Total 1100 / 1460 690 / 930 430 / 430 Output Total 450 / 450 850 / 1350 1600 / 1600 Balance 650 / 1010 -160 / -420 -1170 / -1170 Lab / Micro Data 04/18/24 05:50 04/19/24 06:44 Labs: Laboratory Results - last 24 hr 04/18/24 21:37: POC Glucose 274 H 04/19/24 06:34: POC Glucose 148 H 04/19/24 06:44: Sodium 137, Potassium 3.6, Chloride 103, Carbon Dioxide 24.0, Anion Gap 10, BUN 9, Creatinine 1.01, Estim Creat Clear Calc 80.20, Est GFR (MDRD) Af Amer 95, Est GFR (MDRD) Non-Af 79, BUN/Creatinine Ratio 8.9 L, Glucose 144 H, Calcium 9.4, Phosphorus 3.0, Magnesium 1.7 04/19/24 12:49: Activated Clotting Time 238 H 04/19/24 15:15: POC Glucose 116 H Micro: Microbiology 04/11/24 14:31 Blood Culture (Wb) - Anticubital Right Blood Culture - Final No growth in 5 days. 04/12/24 Unknown Tissue - 5th Toe Gram Stain - Final 04/12/24 Unknown Tissue - 5th Toe Wound Culture - Final Staphylococcus aureus 04/12/24 Unknown Tissue - 5th Toe Anaerobic Culture - Final No anaerobic bacteria isolated. 04/11/24 19:20 Wound - Left Foot Gram Stain - Final 04/11/24 19:20 Wound - Left Foot Wound Culture - Final Staphylococcus aureus 04/11/24 19:20 Wound - Left Foot Anaerobic Culture - Final Anaerobic cocci 04/12/24 Unknown Tissue - Clearance Fragment Gram Stain - Final 04/12/24 Unknown Tissue - Clearance Fragment Wound Culture - Final Staphylococcus aureus 04/12/24 Unknown Tissue - Clearance Fragment Anaerobic Culture - Final No anaerobic bacteria isolated. Physical Exam Narrative General: Alert, oriented, no apparent distress HEENT: Atraumatic, normocephalic Eyes: Anicteric, normal conjunctiva, extraocular movements grossly intact Neck: Supple Respiratory: Clear to auscultation bilaterally, normal respiratory effort Cardiovascular: Regular rate GI: Soft, nontender, nondistended Extremities: No significant pitting edema Musculoskeletal: Moving all extremities Neuro: No overt focal neurological deficits Skin: No rashes appreciated, left foot wrapped Psych: Expressing his frustration Assessment & Plan Assessment/Plan (1) Non-pressure chronic ulcer of other part of left foot with necrosis of bone: (2) Acute osteomyelitis of left foot: PLAN: Plan # Left fifth digit osteomyelitis and abscess secondary to MSSA -Patient admitted with abscess of left foot with ulcer down to necrotic bone with osteomyelitis in the fifth digit -Status postdebridement on 04/12/[address] Caba -IntraOp cultures growing MSSA -Patient evaluated by infectious disease and on Ancef, right upper midline is in place and patient will have home health on discharge with plans for 6-week course weekly labs and ID follow-up in 2 to 3 weeks -Had some further erythema so patient had a follow-up MRI which was negative for any infection and it was felt that there was likely a vascular component -Status post angiogram 04/19/2024, likely home tomorrow and possible return for further vascular evaluation in 1 week # Coronary artery disease status post/NSTEMI -Has history of CABG times and hx 2 PCIs -Patient also had an NSTEMI during admission with cardiac cath that showed occluded third obtuse marginal branch suspected to be culprit vessel -Medical management recommended -Aspirin, Plavix, beta-jose, statin #Type 2 diabetes mellitus -Glucose checks and sliding scale insulin -continue 40 units BID long acting # Peripheral vascular disease -Had been following with Dr. Wells -Most recent revascularization 6 months ago -Status post angiogram 04/19 -Continue aspirin, Plavix, statin # Depression -Continue home duloxetine # Acute hypoxia secondary to left lower lobe pneumonia?resolved # GRZEGORZ?resolved #DVT ppx: Lovenox subcu Luna Dupont MD Time spent in the patient's overall evaluation,decision-making process, review of diagnostic data, adjustment of management, discussion with other providers, nursing nursing and ancillary staff involved in patient's care documentation, 39 minutes Charges/Coding Visit Charges Inpatient E&M: 34934 Subs Hosp L2
--- NOTE | 2024-04-19 16:59 | OP.PCM_ITS ---
Report of Operation Date of Procedure: 04/19/24 Pre-Operative Diagnosis: Atherosclerosis with gangrene, left lower extremity di git Post-Operative Diagnosis: same Surgery/Procedure Performed:: Aortogram, left lower extremity runoff Angioplasty anterior tibial artery Surgeon: Peter Dickens Type of Anesthesia: Local and Sedation,Conscious Estimated Blood Loss (mL): 3
--- NOTE | 2024-04-19 16:59 | PCM.OPRPT ---
Report of Operation Date of Procedure: 04/19/24 Pre-Operative Diagnosis: Atherosclerosis with gangrene, left lower extremity digit Post-Operative Diagnosis: same Surgery/Procedure Performed:: Aortogram, left lower extremity runoff Angioplasty anterior tibial artery Surgeon: Peter Dickens Type of Anesthesia: Local and Sedation,Conscious Estimated Blood Loss (mL): 3 Description of Procedure: HPI: Patient is a 64-year-old male with diabetes and infected left fifth digit wound as well as a noninfected left first digit wound and known peripheral arterial disease. He has had his fifth digit surgically addressed and noninvasive vascular studies reveal noncompressible vessels with monophasic waveforms suggesting significant disease. He is taken to the [facility] now for angiography with possible intervention on suspected tibial disease. Description of procedure: Upon obtaining form consent and verification correct patient procedure site appears taken to the [facility] he was positioned prepped and draped in usual sterile fashion. Timeouts performed conscious sedation administered Versed and fentanyl. Skin overlying the right common femoral artery was anesthetized 1% lidocaine the vessel accessed with micropuncture needle and wire. This then exchanged for micropuncture sheath through which injection iliofemoral angiogram was performed revealing satisfactory positioning with no extravasation or dissection. Through the micropuncture sheath Bentson wire is advanced into the abdominal aorta the micropuncture sheath exchanged for short 6 [place] sheath. Through the 6 [place] sheath and Omni Flush catheter was advanced into the abdominal aorta and a digital subtraction aortogram pelvic angiogram was performed. We then navigated the contralateral iliac system advancing the catheter in the distal external iliac artery. From this position subtraction angiography the left lower extremity was performed after which the Bentson wire was readvanced and positioned in the distal popliteal artery. The Omni Flush catheter was exchanged for a quick cross catheter which was advanced into the distal popliteal artery and completion subtraction angiography of the left lower extremity below the knee was performed. As expected the patient's disease was isolated to the tibial vessels particular the anterior tibial which had multiple short segment total occlusions along its entirety though the dorsalis pedis was the only named vessel in the foot. The posterior tibial and peroneal arteries were less diseased throughout the lower leg however both essentially terminated at the ankle and gave small collaterals that filled the remainder of the foot. There was no reconstitution of the lateral plantar as a target for potential posterior tibial intervention. Is felt the only opportunity for any significant proven was to treat to the anterior tibial artery and hopefully gain inline flow into the dorsalis pedis where it reconstituted in the foot. [employer] wire was then readvanced and the quick cross catheter and short 6 [place] sheath exchanged out for a 6 [place] Ansell sheath advanced in the position into the distal SFA. Next using the quick cross catheter and a command 18 wire we selectively navigate into the anterior tibial artery and engaged the areas of occlusions. We were able to successfully navigate approximately one third of the length of area of disease before persistently getting into sidebranches. The command 18 wire was exchanged for command 14 wire which was able to navigate through the areas of high-grade stenosis and total occlusions of the remainder of the way down to the ankle. We then exchanged the 035 quick cross for an 018 quick cross and attempted to cross the lesion with the catheter. We are able to get to the distal third of the leg before failing to advance any further. It was felt that given the long length of disease burden that this was in part hindering or push ability so the catheter was withdrawn and a 2 mm x 120 catherine angioplasty balloon was advanced over the wire and inflated to nominal across the proximal to mid anterior tibial artery for multiple inflations over approximately two thirds of the length of the vessel. The balloon was then deflated and withdrawn and repeat angiography revealed luminal gain with no extravasation dissection. There was very slow contrast transit because we had not been able to address the more distal disease. The 018 catheter was then readvanced and we again encountered difficulty tracking through the more distal aspects of the vessel. We were able ultimately to traverse the area of occlusion get a wire into the dorsalis pedis in the patent segment but again were unable to get our catheter tract. We then utilized a 1.25 mm x 15 Antoni angioplasty balloon and advance this more distally into the area of occlusion effectively getting to the end of the occlusion. This was inflated nominal across the most distal area of stenosis and occlusion that we were not able to traverse this entirely into the dorsalis pedis. Again repeat angiography revealed now inline flow all the way into the dorsalis pedis that we did not get full satisfactory result in the areas of the distal lower leg. Next a [employer] tapered 2 to 1.5 x 200 angioplasty balloon was advanced over the wire and again were not able to fully traverse the distal third of the vessel. This again was inflated to nominal and then deflated withdrawn. Completion angiography revealed inline flow across the anterior tibial artery that had better contrast transit than our initial imaging. There was still significant residual stenosis in the distal one third of the vessel however given limitations of her contralateral access and the amount of contrast used it was felt that a second attempt at a later time with antegrade access may be successful. Wires and catheters then withdrawn and the long 6 [place] sheath exchanged for a short 6 [place] sheath. A Mynx closure device and deployed followed by 5 minutes of manual pressure after which time satisfactory stasis was obtained. The patient was then returned to the progressive care unit for bedrest. Radiograph interpretation: Abdominal aorta normal caliber with no significant atherosclerosis or stenosis Right common, internal, external iliac arteries widely patent large caliber vessel with no significant atherosclerosis or stenosis Left common, internal, external iliac arteries widely patent large caliber vessel with no significant atherosclerosis or stenosis. Left common femoral, profunda and superficial femoral arteries widely patent with no significant atherosclerosis or stenosis. There is mild scattered diffuse calcification in the superficial femoral artery and popliteal artery which also did not have any significant sclerosis or stenosis. The anterior tibial artery these throughout with an intervening segments of total occlusion, high-grade stenosis, patent segments. This was improved postintervention though there was still high-grade stenosis though no longer with total occlusion distally. The peroneal and posterior tibial arteries had mild diffuse atherosclerosis with no occlusion until the ankle at which point both vessels terminated and gave multiple collateral branches filling the foot.
[2024-04-19] MEDS: metroNIDAZOLE 500 MG Tablet PO (20:34)
[2024-04-19] MEDS: Atorvastatin Calcium 40 MG Tablet PO (20:37)
[2024-04-19] MEDS: Insulin Lispro 100 UNIT/ML INSULN.PEN SC (20:41)
[2024-04-19] MEDS: Insulin Glargine-YFGN 100 UNIT/ML Pen 40 UNIT SC (20:42)
[2024-04-19 23:00] LABS: Bedside Glucose 278 mg/dL (74-106)
[2024-04-20] MEDS: Acetaminophen 500 MG Tablet 1000 MG PO ×2 (00:43→09:32)
[2024-04-20 01:00] VITALS: BP 153/88; BP 158/66; PULSE 92; RESP 16; TEMP 36.4; O2SAT 99
[2024-04-20 04:36] VITALS: BP 144/69; BP 153/88; PULSE 99; RESP 17; TEMP 36.4; O2SAT 99
[2024-04-20] MEDS: Cefazolin 2 GM in 0.9% Normal Saline (100mL Bag) 100 ML IV ×2 (06:46→13:00)
[2024-04-20] MEDS: metroNIDAZOLE 500 MG Tablet PO ×2 (06:47→13:00)
[2024-04-20] MEDS: Enoxaparin 40 MG/0.4 ML Syringe SC (06:47)
[2024-04-20 06:59] LABS: Bedside Glucose 134 mg/dL (74-106)
[2024-04-20 07:48] VITALS: PULSE 87; RESP 16
[2024-04-20] MEDS: Ipratropium/Albuterol Sulfate 3 ML AMPUL.NEB INHALATION (07:48)
[2024-04-20 09:14] VITALS: BP 148/71; PULSE 82; RESP 16; TEMP 36.9; O2SAT 97
[2024-04-20 09:21] VITALS: BP 148/71; PULSE 82
[2024-04-20] MEDS: Lisinopril 10 MG Tablet 30 MG PO (09:21)
[2024-04-20] MEDS: Metoprolol Tartrate 25 MG Tablet PO (09:21)
[2024-04-20] MEDS: Clopidogrel Bisulfate 75 MG Tablet PO (09:21)
[2024-04-20] MEDS: Fluticasone 0.05% 1 SPRAY NASAL.SRY NASAL (09:21)
[2024-04-20] MEDS: Aspirin E.C. 81 MG Tablet PO (09:22)
[2024-04-20] MEDS: Ferrous Sulfate 325 MG Tablet PO (09:33)
[2024-04-20] MEDS: Pantoprazole Sodium 40 MG Tablet PO (09:33)
[2024-04-20] MEDS: 0.9% Saline Lock 10 ML Syringe IV ×3 (09:34→14:57)
--- NOTE | 2024-04-20 11:45 | DCINST_ITS ---
Discharge Instructions Diet Discharge Diet: - (Carb control diet) Activity Discharge Activity: - (No weightbearing left foot) Weight Bearing Status: No weight bearing (Left foot) Dressing / Incision Remove Dressing in: Daily Follow Up Care Test Results: Test results from this visit will be discussed in further detail at your follow- up appointment, if applicable. Discharge Plan Admission Admit Date/Time: 04/11/24 17:36 Primary Reason for Your Visit: Left foot infection Attending Provider: Luna Dupont Primary Care Provider: Vee Montana NP Consulting Providers: Raymond Erazo; Sunday Pollock; Ty Caba; Peter Dickens; Corey Qureshi; Kaitlin Ozuna Instructions Patient Instructions: Osteomyelitis Dc, Walker Using No Weight Steps, Walker Stand Non Wt Bearing Steps Additional Instructions / Restrictions: DISCHARGE INSTRUCTIONS PLEASE READ *Please take this with you to your next doctors appointment* -You will be discharged on IV antibiotics through 05/25/2024 that will be managed by Dr. Pollock with infectious disease -Please follow-up with Dr. Caba within 1 week upon discharge. Please call their office to schedule hospital follow-up appointment upon discharge. -Please follow-up with Dr. Dickens upon discharge. Please call their office to schedule hospital follow-up appointment upon discharge. -Please follow-up with Dr. Pollock with infectious disease upon discharge. Please call their office to schedule hospital follow-up appointment upon discharge. -Pravastatin was added to your medication list to help lower cholesterol as you did not tolerate atorvastatin in the past, this can be increased in dose by your PCP if tolerated. You will also be discharged on lisinopril 30 mg for blood pressure -You have not been taking your furosemide during this hospitalization and had been doing well so this will continue to be held at this time. Recommend weighing yourself daily. A sudden weight gain can mean you are retaining fluid. Weigh yourself at the same time of day and in the same kind of clothes. Ideally, weigh yourself first thing in the morning after you empty your bladder, but before you eat breakfast. -Please call your physician if your weight goes up by more than 2 pounds in 1 day or 5 pounds in 1 week. This can be a sign that you are retaining more fluid than you should be. -You will be discharged on insulin glargine 20 units subcutaneously twice a day due to elevated blood sugar. It will be important that you check your blood sugar in the morning and at night, if your blood glucoses are less than 100 or consistently over 250 please contact your primary care physician. Your requirements will likely decrease over time as infection improves so this will need to be followed closely by your outpatient provider -Please call your primary care provider's office upon discharge to schedule a hospital follow up within 1 week. -For any concerning signs or symptoms please call 911 or proceed to the nearest emergency department Discharge Orders/Prescriptions Prescriptions: New cefazolin 2 gram recon soln 2 g IV Q8H 40 Days Rx Instructions: stop date 05/25/24. Dx: foot osteo. Weekly bmp, cbc, and esr. Fax to [phone]. Routine picc care per protocol. metronidazole 500 mg Tablet 500 mg PO TID 40 Days Qty: 120 0RF Rx Instructions: no alcohol while on this medicine insulin glargine-yfgn 100 unit/mL (3 mL) Insulin Pen 20 unit subcut BID 30 Days Qty: 12 0RF lisinopril 10 mg Tablet 30 mg PO DAILY 30 Days Qty: 90 0RF oxycodone 5 mg Tablet 10 mg PO Q4H PRN PRN (Reason: Pain Score 1-10) 4 Days Qty: 30 0RF pravastatin 20 mg Tablet 20 mg PO QHS 30 Days Qty: 30 0RF (DME) pen needle, diabetic [BD Ultra-Fine Short Pen Needle] 31 gauge x 5/16 needle See Rx Instructions .Route Qty: 100 3RF Rx Instructions: Please inject long-acting insulin glargine twice daily (DME) lancets-blood glucose strips 32 gauge kit See Rx Instructions .Route Qty: 300 0RF Rx Instructions: Check glucose twice daily, once in the morning and once at bedtime Continued acetaminophen 500 mg tablet 1,000 mg PO Q6H PRN (Reason: pain) ferrous sulfate 325 mg (65 mg iron) tablet,delayed release (DR/EC) 325 mg PO DAILY metoprolol tartrate 25 mg tablet 25 mg PO BID metformin 500 mg tablet 500 mg PO BID aspirin [Adult Low Dose Aspirin] 81 mg tablet,delayed release (DR/EC) 81 mg PO DAILY fluticasone propionate [Allergy Relief (fluticasone)] 50 mcg/actuation spray,suspension 1 spray intranasal DAILY Rx Instructions: administer into each nostril nitroglycerin 0.4 mg tablet, sublingual 0.4 mg sublingual Q5-15M PRN (Reason: chest pain) Rx Instructions: do not exceed 3 doses per episode fluticasone propionate 50 MCG blister with device 2 puff IH DAILY clopidogrel 75 MG tablet 75 mg PO DAILY albuterol sulfate 1 INHALER inhaler 1 - 2 puff INHALATION Q4H PRN PRN (Reason: Wheezing) amlodipine 5 mg tablet 5 mg PO DAILY duloxetine 20 mg capsule,delayed release(DR/EC) 30 mg PO DAILY metformin 500 mg tablet extended release 24 hr 1,000 mg PO BID glimepiride 4 mg tablet 8 mg PO BID Held furosemide 20 mg tablet 20 mg PO DAILY Hold Instructions: Resume on 04/23/24. Discontinued ascorbic acid (vitamin C) 500 mg tablet 500 mg PO DAILY empagliflozin 25 mg tablet 25 mg PO DAILY ezetimibe [Zetia] 10 mg tablet 10 mg PO DAILY Nexletol 180 mg tablet 180 mg PO DAILY Referrals / Follow Up: Nitin Malagon MD [Non-Staff] - Within 2 Weeks Peter Dickens MD [Med Staff - Active Staff] - Within 2 Weeks Ty Caba DPM [Med Staff - Active Staff] - Within 1 Week Sunday Pollock MD [Med Staff - Active Staff] - Within 2 Weeks Vee Montana NP, [facility] [Primary Care Provider] - Disposition Disposition (needs filled in before D/C Order can be placed): Home Health Service
[2024-04-20] MEDS: Insulin Glargine-YFGN 100 UNIT/ML Pen 40 UNIT SC (11:46)
[2024-04-20] MEDS: Insulin Lispro 100 UNIT/ML INSULN.PEN SC (11:48)
[2024-04-20] MEDS: DULoxetine Hcl 20 MG Capsule PO (11:49)
[2024-04-20] MEDS: guaiFENesin 1,200 MG Tablet 1200 MG PO (11:49)
[2024-04-20 12:11] LABS: Bedside Glucose 206 mg/dL (74-106)
--- NOTE | 2024-04-20 12:32 | CASEMGMT ---
REJI PHILLIPS updated by nursing that patient is wanting walker at discharge. REJI PHILLIPS also received update from hospitalist that patient states he is able to complete is own wound care. REJI PHILLIPS obtained script for walker from hospitalist. REJI PHILLIPS updated wound nursing to complete teaching with patient. REJI PHILLIPS called and updated [facility] that patient will be discharging today, start of care planned for tomorrow am. REJI PHILLIPS updated [facility] via [facility] that patient is discharging with [facility] starting tomorrow morning. 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 REJI PHILLIPS in to update patient of discharge plan, patient agreeable to plan and confirms that he will do his dressing changes when HHC is not able to perform. Patient states he would like walker at discharge and prefers [employer]. Patient had no further questions or concerns. REJI PHILLIPS sent walker referral to [employer] via [facility], walker provided from [employer] REJI PHILLIPS updated discharge plan.
[2024-04-20 14:55] VITALS: BP 107/71; PULSE 77; RESP 16; TEMP 36.9; O2SAT 97
--- NOTE | 2024-04-20 19:18 | DS.PCM_ITS ---
Providers Date of Admission: 04/11/24 Date of Discharge: 04/20/24 Primary Care Physician: LUCIANO Newell Consultations 04/11/24 18:40 Consult: Onc/Wound/reception interviewer Routine Comment: Consult: Podiatry Routine Consulting Provider: Ty Caba Reason for Consult: Left foot osteomyelitis EMERGENT Consult: No MD Notified: Yes Date Notified: 04/11/24 Time Notified: 17:43 Method of Notification: ED Physician Initiated 04/12/24 07:55 Consult: Infectious Disease Routine Consulting Provider: Sunday Pollock Reason for Consult: OM foot EMERGENT Consult: No MD Notified: Yes Date Notified: 04/12/24 Time Notified: 08:10 Method of Notification: Answering Service 04/13/24 12:34 Consult: Vascular Surgery Routine Consulting Provider: Peter Dickens Reason for Consult: PVD LE with ulcer EMERGENT Consult: No MD Notified: Yes Date Notified: 04/13/24 Time Notified: 12:34 Method of Notification: Verbal 04/15/24 06:31 Consult: Cardiology Routine Consulting Provider: Corey Qureshi Reason for Consult: Elevated trop, NSTEMI EMERGENT Consult: No MD Notified: Yes Date Notified: 04/15/24 Time Notified: 06:31 Method of Notification: Text Reason For Visit: L REJIT OSTEMOMYELITIS Diagnosis Discharge Diagnosis (1) Non-pressure chronic ulcer of other part of left foot with necrosis of bone: Status: Chronic Code(s): L97.524 - Non-pressure chronic ulcer of other part of left foot with necrosis of bone (2) Acute osteomyelitis of left foot: Status: Acute Code(s): M86.172 - Other acute osteomyelitis, left ankle and foot Plan # Left fifth digit osteomyelitis and abscess secondary to MSSA # Coronary artery disease status post/NSTEMI #Type 2 diabetes mellitus # Peripheral vascular disease # Depression # Acute hypoxia secondary to left lower lobe pneumonia?resolved # GRZEGORZ?resolved Medications at Discharge Home Medications albuterol sulfate 90 mcg/actuation aerosol inhaler 1 - 2 puff inhalation Q4H PRN PRN Wheezing 09/17/20 clopidogrel 75 mg tablet 75 mg PO DAILY bld thinner 09/17/20 fluticasone propionate 50 mcg/actuation blister powder for inhalation 2 puff IH DAILY breathing 09/17/20 acetaminophen 500 mg tablet 1,000 mg PO Q6H PRN pain 08/29/22 aspirin 81 mg tablet,delayed release (Adult Low Dose Aspirin) 81 mg PO DAILY thinner 08/29/22 ferrous sulfate 325 mg (65 mg iron) tablet,delayed release 325 mg PO DAILY . 08/29/22 fluticasone propionate 50 mcg/actuation nasal spray,suspension (Allergy Relief (fluticasone)) 1 spray intranasal DAILY . 08/29/22 furosemide 20 mg tablet 20 mg PO DAILY . 08/29/22 metformin 500 mg tablet 500 mg PO BID diabetes 08/29/22 metoprolol tartrate 25 mg tablet 25 mg PO BID bp 08/29/22 nitroglycerin 0.4 mg sublingual tablet 0.4 mg sublingual Q5-15M PRN chest pain 08/29/22 amlodipine 5 mg tablet 5 mg PO DAILY BP 04/11/24 duloxetine 20 mg capsule,delayed release 30 mg PO DAILY depression 04/11/24 glimepiride 4 mg tablet 8 mg PO BID DM 04/11/24 metformin 500 mg tablet,extended release 24 hr 1,000 mg PO BID DM 04/11/24 cefazolin 2 gram intravenous solution 2 g IV Q8H 40 days 04/14/24 metronidazole 500 mg tablet 500 mg PO TID 40 days #120 tabs 04/14/24 insulin glargine-yfgn 100 unit/mL (3 mL) subcutaneous pen 20 unit (0.2 mL) subcut BID 30 days #12 mL 04/20/24 lancets 32 gauge and blood glucose strips kit #300 ea 04/20/24 lisinopril 10 mg tablet 30 mg (3 x 10 mg) PO DAILY 30 days #90 tabs 04/20/24 oxycodone 5 mg tablet 10 mg (2 x 5 mg) PO Q4H PRN PRN Pain Score 1-10 4 days #30 tabs 04/20/24 pen needle, diabetic 31 gauge x 5/16 (BD Ultra-Fine Short Pen Needle) #100 ea 04/20/24 pravastatin 20 mg tablet 20 mg PO QHS 30 days #30 tabs 04/20/24 Hospital Course Procedures - (Angiogram lower extremity 04/19, heart cath, left foot debridement 04/12) Summary of Care Provided Minutes Spent on Discharge: 40 Hospital Course: 64-year-old male history of coronary artery disease status post CABG, diabetes, peripheral vascular disease, depression presented [facility] ED 04/11/2024 with left foot pain and erythema. Podiatry was consulted and patient was started on vancomycin, cefepime, Flagyl. Patient taken to OR 04/[address] Caba due to abscess of the left foot with ulcer down to necrotic bone and osteomyelitis of left fifth toe and fifth metatarsal with debridement of all nonviable, infected, necrotic soft tissue and bone on the left foot. Patient grew MSSA and was followed by podiatry as well as ID and it was recommended patient be on Ancef for 6-week course and ID follow-up. During hospitalization patient also evaluated by vascular and had angiogram 04/19 with angioplasty to the anterior tibial artery. During hospitalization patient also developed acute hypoxia secondary to left lower lobe pneumonia which was treated with antibiotics and resolved, he had an GRZEGORZ which resolved with supportive care, and also developed chest pain and was found to have an NSTEMI ultimately requiring cardiology consultation heart cath 04/15/2024 which showed occluded third obtuse marginal branch which was suspected to be the culprit vessel and aggressive medical management advised. Patient continued to improve and ultimately was stable for discharge after angiogram. Recommendation was for SNF placement by patient's maintenance team member/surgeon however patient very adamant that he was going home despite discussing this recommendation with him multiple times by multiple providers. He is willing to do dressing changes on the days that home health is not there to do dressing changes and was able to have home health set up for IV antibiotics. He understands his instructions of nonweightbearing and to follow- up with podiatry, vascular, infectious disease. Discussed patient's glucose and need for insulin given significantly elevated blood sugars requiring high insulin requirements though this is downtrending with improvement infection, patient also ultimately agreeable to trying pravastatin, reported he did not tolerate atorvastatin in the past even though he was receiving it here but was willing on an outpatient basis to trial pravastatin. Day of discharge patient feeling much better with no new or acute complaints. Discharge instructions as followed: -You will be discharged on IV antibiotics through 05/25/2024 that will be managed by Dr. Pollock with infectious disease -Please follow-up with Dr. Caba within 1 week upon discharge. Please call their office to schedule hospital follow-up appointment upon discharge. -Please follow-up with Dr. Dickens upon discharge. Please call their office to schedule hospital follow-up appointment upon discharge. -Please follow-up with Dr. Pollock with infectious disease upon discharge. Please call their office to schedule hospital follow-up appointment upon discharge. -Pravastatin was added to your medication list to help lower cholesterol as you did not tolerate atorvastatin in the past, this can be increased in dose by your PCP if tolerated. You will also be discharged on lisinopril 30 mg for blood pressure -You have not been taking your furosemide during this hospitalization and had been doing well so this will continue to be held at this time. Recommend weighing yourself daily. A sudden weight gain can mean you are retaining fluid. Weigh yourself at the same time of day and in the same kind of clothes. Ideally, weigh yourself first thing in the morning after you empty your bladder, but before you eat breakfast. -Please call your physician if your weight goes up by more than 2 pounds in 1 day or 5 pounds in 1 week. This can be a sign that you are retaining more fluid than you should be. -You will be discharged on insulin glargine 20 units subcutaneously twice a day due to elevated blood sugar. It will be important that you check your blood sugar in the morning and at night, if your blood glucoses are less than 100 or consistently over 250 please contact your primary care physician. Your requirements will likely decrease over time as infection improves so this will need to be followed closely by your outpatient provider -Please call your primary care provider's office upon discharge to schedule a hospital follow up within 1 week. -For any concerning signs or symptoms please call 911 or proceed to the nearest emergency department Physical Exam Narrative General: Alert, oriented, no apparent distress HEENT: Atraumatic, normocephalic Eyes: Anicteric, normal conjunctiva, extraocular movements grossly intact Neck: Supple Respiratory: Clear to auscultation bilaterally, normal respiratory effort Cardiovascular: Regular rate GI: Soft, nontender, nondistended Extremities: No significant pitting edema Musculoskeletal: Moving all extremities Neuro: No overt focal neurological deficits Skin: No rashes appreciated, left foot wrapped Psych: Cooperative Weight / BMI Weight Weight: 91.8 kg Body Mass Index (BMI) 30.7 ABG / Lab / Microbiology Data 04/18/24 05:50 04/19/24 06:44 Laboratory: Laboratory Results - last 24 hr 04/19/24 20:40: POC Glucose 278 H 04/20/24 06:40: POC Glucose 134 H 04/20/24 11:45: POC Glucose 206 H Microbiology: Microbiology 04/11/24 14:31 Blood Culture (Wb) - Anticubital Right Blood Culture - Final No growth in 5 days. 04/12/24 Unknown Tissue - 5th Toe Gram Stain - Final 04/12/24 Unknown Tissue - 5th Toe Wound Culture - Final Staphylococcus aureus 04/12/24 Unknown Tissue - 5th Toe Anaerobic Culture - Final No anaerobic bacteria isolated. 04/11/24 19:20 Wound - Left Foot Gram Stain - Final 04/11/24 19:20 Wound - Left Foot Wound Culture - Final Staphylococcus aureus 04/11/24 19:20 Wound - Left Foot Anaerobic Culture - Final Anaerobic cocci 04/12/24 Unknown Tissue - Clearance Fragment Gram Stain - Final 04/12/24 Unknown Tissue - Clearance Fragment Wound Culture - Final Staphylococcus aureus 04/12/24 Unknown Tissue - Clearance Fragment Anaerobic Culture - Final No anaerobic bacteria isolated. D/C Instructions Discharge Diet: - (Carb control diet) Weight Bearing Status: No weight bearing (Left foot) Meaningful Use Info Meaningful Use Meaningful Use Diagnoses (Choose all that apply): None applicable Ischemic Stroke Statin Dosing Therapy Reference: STATIN DOSE THERAPY REFERENCE: * Patients > 75 years receive moderate or high dose statin therapy. * Patients 75 years or YOUNGER should receive HIGH intensity statin dose unless contraindicated. You will be required to document reason for non-treatment if statin daily dose does not meet guidelines. HIGH DOSE STATIN THERAPY DAILY Atorvastatin > than or = to 40 mg Rosuvastatin > than or = to 20 mg Amlodipine + Atorvastatin > than or = to 2.5/40 mg Ezetimibe + Simvastatin 10/80 mg Simvastatin 80mg Discharge Plan Admission Admit Date/Time: 04/11/24 17:36 Primary Reason for Your Visit: Left foot infection Attending Provider: Luna Dupont Primary Care Provider: Vee Montana NP Consulting Providers: Raymond Erazo; Sunday Pollock; Ty Caba; Peter Dickens; Corey Qureshi; Kaitlin Ozuna Instructions Patient Instructions: Osteomyelitis Dc, Walker Using No Weight Steps, Walker Stand Non Wt Bearing Steps Additional Instructions / Restrictions: DISCHARGE INSTRUCTIONS PLEASE READ *Please take this with you to your next doctors appointment* -You will be discharged on IV antibiotics through 05/25/2024 that will be managed by Dr. Pollock with infectious disease -Please follow-up with Dr. Caba within 1 week upon discharge. Please call their office to schedule hospital follow-up appointment upon discharge. -Please follow-up with Dr. Dickens upon discharge. Please call their office to schedule hospital follow-up appointment upon discharge. -Please follow-up with Dr. Pollock with infectious disease upon discharge. Please call their office to schedule hospital follow-up appointment upon discharge. -Pravastatin was added to your medication list to help lower cholesterol as you did not tolerate atorvastatin in the past, this can be increased in dose by your PCP if tolerated. You will also be discharged on lisinopril 30 mg for blood pressure -You have not been taking your furosemide during this hospitalization and had been doing well so this will continue to be held at this time. Recommend weighing yourself daily. A sudden weight gain can mean you are retaining fluid. Weigh yourself at the same time of day and in the same kind of clothes. Ideally, weigh yourself first thing in the morning after you empty your bladder, but before you eat breakfast. -Please call your physician if your weight goes up by more than 2 pounds in 1 day or 5 pounds in 1 week. This can be a sign that you are retaining more fluid than you should be. -You will be discharged on insulin glargine 20 units subcutaneously twice a day due to elevated blood sugar. It will be important that you check your blood sugar in the morning and at night, if your blood glucoses are less than 100 or consistently over 250 please contact your primary care physician. Your requirements will likely decrease over time as infection improves so this will need to be followed closely by your outpatient provider -Please call your primary care provider's office upon discharge to schedule a hospital follow up within 1 week. -For any concerning signs or symptoms please call 911 or proceed to the nearest emergency department Discharge Orders/Prescriptions Prescriptions: New cefazolin 2 gram recon soln 2 g IV Q8H 40 Days Rx Instructions: stop date 05/25/24. Dx: foot osteo. Weekly bmp, cbc, and esr. Fax to [phone]. Routine picc care per protocol. metronidazole 500 mg Tablet 500 mg PO TID 40 Days Qty: 120 0RF Rx Instructions: no alcohol while on this medicine insulin glargine-yfgn 100 unit/mL (3 mL) Insulin Pen 20 unit subcut BID 30 Days Qty: 12 0RF lisinopril 10 mg Tablet 30 mg PO DAILY 30 Days Qty: 90 0RF oxycodone 5 mg Tablet 10 mg PO Q4H PRN PRN (Reason: Pain Score 1-10) 4 Days Qty: 30 0RF pravastatin 20 mg Tablet 20 mg PO QHS 30 Days Qty: 30 0RF (DME) pen needle, diabetic [BD Ultra-Fine Short Pen Needle] 31 gauge x 5/16 needle See Rx Instructions .Route Qty: 100 3RF Rx Instructions: Please inject long-acting insulin glargine twice daily (DME) lancets-blood glucose strips 32 gauge kit See Rx Instructions .Route Qty: 300 0RF Rx Instructions: Check glucose twice daily, once in the morning and once at bedtime Continued acetaminophen 500 mg tablet 1,000 mg PO Q6H PRN (Reason: pain) ferrous sulfate 325 mg (65 mg iron) tablet,delayed release (DR/EC) 325 mg PO DAILY metoprolol tartrate 25 mg tablet 25 mg PO BID metformin 500 mg tablet 500 mg PO BID aspirin [Adult Low Dose Aspirin] 81 mg tablet,delayed release (DR/EC) 81 mg PO DAILY fluticasone propionate [Allergy Relief (fluticasone)] 50 mcg/actuation spray,suspension 1 spray intranasal DAILY Rx Instructions: administer into each nostril nitroglycerin 0.4 mg tablet, sublingual 0.4 mg sublingual Q5-15M PRN (Reason: chest pain) Rx Instructions: do not exceed 3 doses per episode fluticasone propionate 50 MCG blister with device 2 puff IH DAILY clopidogrel 75 MG tablet 75 mg PO DAILY albuterol sulfate 1 INHALER inhaler 1 - 2 puff INHALATION Q4H PRN PRN (Reason: Wheezing) amlodipine 5 mg tablet 5 mg PO DAILY duloxetine 20 mg capsule,delayed release(DR/EC) 30 mg PO DAILY metformin 500 mg tablet extended release 24 hr 1,000 mg PO BID glimepiride 4 mg tablet 8 mg PO BID Held furosemide 20 mg tablet 20 mg PO DAILY Hold Instructions: Resume on 09/13/24. Discontinued ascorbic acid (vitamin C) 500 mg tablet 500 mg PO DAILY empagliflozin 25 mg tablet 25 mg PO DAILY ezetimibe [Zetia] 10 mg tablet 10 mg PO DAILY Nexletol 180 mg tablet 180 mg PO DAILY Referrals / Follow Up: Nitin Malagon MD [Non-Staff] - Within 2 Weeks Peter Dickens MD [Med Staff - Active Staff] - 04/29/24 10:00 am Ty Caba DPM [Med Staff - Active Staff] - 04/28/24 10:30 am Sunday Pollock MD [Med Staff - Active Staff] - 05/05/24 3:00 pm (At the [facility]. ) Vee Montana NP, CASE MAKING MACHINE OPERATOR-C [Primary Care Provider] - Disposition Disposition (needs filled in before D/C Order can be placed): Home Health Service Charges/Coding Visit Charges Inpatient E&M: 05035 Disch Hosp >30min
== END 2024-04-20 15:19 | disposition home health service (06) | DRG 239 ==
LOC: ED 16:17 → MS3 17:56 → PCU 04-15 00:37
PROVIDERS: Family Medicine; Internal Medicine; Internal Medicine Cardiovascular Disease; Podiatrist; Admitting Provider Hospitalist; Emergency Provider Emergency Medicine; PCP Nurse Practitioner Family; Visit Provider Internal Medicine
PROC: 0Y6N0ZF Detachment at Left Foot, Partial 5th Ray, Open Approach (ICD-10-PCS; principal; 2024-04-12 10:15)
DX: E11.52 Type 2 diabetes mellitus with diabetic peripheral angiopathy with gangrene (principal); I21.4 Non-ST elevation (NSTEMI) myocardial infarction; J18.9 Pneumonia, unspecified organism; I70.262 Atherosclerosis of native arteries of extremities with gangrene, left leg; M86.172 Other acute osteomyelitis, left ankle and foot; I70.92 Chronic total occlusion of artery of the extremities; E87.1 Hypo-osmolality and hyponatremia; N17.9 Acute kidney failure, unspecified; L03.116 Cellulitis of left lower limb; L02.612 Cutaneous abscess of left foot; D63.1 Anemia in chronic kidney disease; N18.31 Chronic kidney disease, stage 3a; E11.621 Type 2 diabetes mellitus with foot ulcer; I12.9 Hypertensive chronic kidney disease with stage 1 through stage 4 chronic kidney disease, or unspecified chronic kidney disease; F32.A Depression, unspecified; E66.9 Obesity, unspecified; L97.524 Non-pressure chronic ulcer of other part of left foot with necrosis of bone; E11.22 Type 2 diabetes mellitus with diabetic chronic kidney disease; Z89.411 Acquired absence of right great toe; E11.42 Type 2 diabetes mellitus with diabetic polyneuropathy; I25.10 Atherosclerotic heart disease of native coronary artery without angina pectoris; E78.00 Pure hypercholesterolemia, unspecified; E87.6 Hypokalemia; I25.2 Old myocardial infarction; E11.69 Type 2 diabetes mellitus with other specified complication; F41.9 Anxiety disorder, unspecified; Z79.4 Long term (current) use of insulin; E83.42 Hypomagnesemia; B95.61 Methicillin susceptible Staphylococcus aureus infection as the cause of diseases classified elsewhere; R09.02 Hypoxemia; Z91.148 Patient's other noncompliance with medication regimen for other reason; Z91.198 Patient's noncompliance with other medical treatment and regimen for other reason; Z68.30 Body mass index [BMI] 30.0-30.9, adult; Z95.1 Presence of aortocoronary bypass graft; Z95.5 Presence of coronary angioplasty implant and graft; Z79.01 Long term (current) use of anticoagulants; Z79.02 Long term (current) use of antithrombotics/antiplatelets; Z79.82 Long term (current) use of aspirin; Z79.84 Long term (current) use of oral hypoglycemic drugs; Z79.899 Other long term (current) drug therapy
CPT/HCPCS: 36200; 36245; 36415; 37228; 71045; 73630; 73718; 75625; 75635; 75710; 76937; 80048; 80053; 80061; 80202; 82962; 83036; 83735; 83880; 84100; 84484; 85025; 85027; 85347; 85610; 85652; 85730; 86140; 87015; 87040; 87070; 87075; 87077; 87102; 87116; 87176; 87186; 87205; 87206; 87640; 88305; 88311; 93005; 93306; 93459; 93923; 93926; 94640; 94668; 97161; 97166; 97802; 99152; 99153; 99252; 99284; C1725; C1760; C1769; C1887; C1894; J7030; J7040; J7050; Q9957; Q9967; A4216; C8929; G0463; J1940; J2405

== ENCOUNTER 2024-04-29 08:28 | Day surgery (SDC) | payer MEDICARE, SELFPAY ==
[2024-04-29 08:52] VITALS: BMI 31.1
--- NOTE | 2024-04-29 11:18 | PCM.OPRPT ---
Report of Operation Date of Procedure: 04/29/24 Pre-Operative Diagnosis: left foot osteomyelitis Post-Operative Diagnosis: same Surgery/Procedure Performed:: left lower extremity angiogram Surgeon: Peter Dickens Type of Anesthesia: Local and Sedation,Conscious Estimated Blood Loss (mL): 5 Description of Procedure: HPI: Patient is a 64-year-old male with prior left foot osteo requiring amputation with arterial insufficiency with the majority of his disease in the distal tibial and pedal vessels. He previously underwent angiogram with intervention of the anterior tibial artery though this did not yield an optimal result. He returns now for further efforts via antegrade access in the hopes to optimize perfusion and heal his surgical site. Description of procedure: Upon obtaining form consent and verification correct patient procedure site patient taken to the [facility] where he was positioned prepped and draped in usual sterile fashion. Timeouts performed conscious sedation was administered Versed and fentanyl. Ultrasound used to assess the common femoral artery and bifurcation which were patent with no significant atherosclerosis. The patient does have some abdominal girth which made visualization and access of the common femoral artery difficult with an exceedingly steep angle of approach with the needle. Given this the best option for access was intended to be the proximal SFA. Skin overlying the vessel was anesthetized 1% lidocaine and the vessel accessed with a micropuncture needle and wire. This was exchanged for micropuncture sheath through which injection subtraction angiography was performed which revealed satisfactory positioning with no extravasation or dissection. Through this a stiff microwire was advanced and the micropuncture sheath exchanged for a 6 Sami thin-walled sheath. The patient was then heparinized and allowed to circulate for 3 minutes. After this was successfully exchange completion angiography of the left lower extremity was performed which confirmed continued patency of the posterior tibial and peroneal arteries as well as patent anterior tibial artery in the proximal mid and even distal segment down to the ankle where we had previously intervened. There was continued occlusion of the anterior tibial at the ankle with dorsalis pedis reconstitution. Through the 6 Sami sheath we attempted to advance a command 18 wire though the wire would not advance through the sheath. Fluoroscopic evaluation revealed that the sheath was kinked likely due to the sharp angle and abdominal displacement anteriorly of the sheath. We attempted to advance a Glidewire and the efforts to exchanged the sheath for a stiffer standard thickness walled sheath without success. After multiple efforts to salvage the sheath access site we decided that pulling the sheath and hold manual pressure with an attempt to reaccess would be preferable. The sheath was then withdrawn and manual pressure held for 15 minutes after which hemostasis appeared to have been obtained. Ultrasound was then used to evaluate the proximal superficial femoral artery and appeared to be some mild stranding and hematoma adjacent to this which significantly skewed our view. During this time of evaluating for repeat access a new hematoma appeared to be developing so manual pressure was held and it was decided to abort any further efforts. Heparin was then reversed with protamine and manual pressure held for 20 minutes after which satisfactory stasis was noted. Patient then taken recovery room for bedrest prior to discharge to home.
== END 2024-04-29 15:00 | disposition home or self-care (01) ==
PROVIDERS: PCP Nurse Practitioner Family; Referring Provider Surgery Trauma Surgery; Visit Provider Surgery Trauma Surgery
DX: M86.172 Other acute osteomyelitis, left ankle and foot (principal); Z79.4 Long term (current) use of insulin; E11.42 Type 2 diabetes mellitus with diabetic polyneuropathy; E11.69 Type 2 diabetes mellitus with other specified complication; I77.1 Stricture of artery; I73.89 Other specified peripheral vascular diseases; Z79.82 Long term (current) use of aspirin; Z79.01 Long term (current) use of anticoagulants; Z79.84 Long term (current) use of oral hypoglycemic drugs
CPT/HCPCS: 36245; 75710; 76937; 99152; 99153; C1769; C1894; J7040; Q9967

== ENCOUNTER 2024-05-04 00:02 | Emergency (ER) | payer MEDICARE, SELFPAY ==
[2024-05-04 00:03] VITALS: BP 152/80; PULSE 85; RESP 18; TEMP 37.1; O2SAT 96; BMI 31.5
--- NOTE | 2024-05-04 00:38 | EDS_ITS ---
HPI History of Present Illness Chief Complaint: Lower Extremity Injury Narrative Narrative: Chief complaint and HPI: Left big toe bleeding. 64-year-old male with history of CAD on Plavix, HLD, PAD, DM2 presents for evaluation of left large toe bleeding. Patient states that he is currently on antibiotics via PICC line for acute osteomyelitis of the left foot status post surgery. He states that today he noticed a piece of skin came off his left big toe and it would not stop bleeding. He states that he applied pressure but it would not stop bleeding which is why he presents. He states that this is not in the area of his incision. He also endorses that the connector to his midline broke today and he needs a new attachment. He denies any injury to the foot. Denies any pain in the foot. Denies any drainage or discharge. Denies any fever chills. Review of systems: See HPI Medications: As listed on the chart Allergies: As listed on the chart PFSH: Per chart Vital signs: As listed on the chart. Reviewed. Physical exam: Gen: A&O x3, NAD Head: Normocephalic, atraumatic Eyes: No sclera icterus, conjunctiva clear ENT: Moist mucous membranes CV: Regular rate Resp: Nonlabored respiration Musc: Full ROM, no deformity, patient's left foot was bandaged and bandage was removed-there was a piece of dried gauze between the first and second digit that had dried blood on it. Left first digit has a skin abrasion-no active bleeding and no signs of infection, he has sutures placed in the lateral portion of his left foot from previous surgery -incision is healing well without signs of infection, good capillary refill, sensation intact Skin: Warm, PICC line in right upper extremity intact without signs of infection or bleeding-the attachment tubing piece is broke therefore this was removed and a new one was given to the patient, no actual injury to the PICC line itself Neuro: Alert, oriented, grossly intact, sensation intact Psych: Cooperative, appropriate mood and affect [facility] Medical History Essential hypertension Atherosclerotic heart disease of [place] coronary artery without angina pectoris History of left heart catheterization (LHC) (~08/15/22) CAD (coronary artery disease) Hypertension History of coronary artery disease Cardiology follow-up encounter History of echocardiogram Open wound Uses crutches High cholesterol Dietary restriction Non-smoker Asthma Coronary artery disease 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 Diabetes mellitus with diabetic polyneuropathy Type 2 diabetes mellitus with foot ulcer Other specified peripheral vascular diseases Osteomyelitis PAD (peripheral artery disease) Delayed wound healing Hallux limitus of right foot Anxiety Depression Myocardial infarct Hallux limitus of right foot Type 2 diabetes mellitus with diabetic polyneuropathy Toe infection Heart disease HTN (hypertension) Diabetes mellitus CAD (coronary artery disease) DM2 (diabetes mellitus, type 2) Asthma Home Medications ?Medication ?Instructions ?Recorded ?Last Taken ?Type albuterol sulfate 90 mcg/actuation 1 - 2 puff inhalation Q4H PRN PRN 09/17/20 04/29/24 History aerosol inhaler Wheezing clopidogrel 75 mg tablet 75 mg PO DAILY bld thinner 09/17/20 04/29/24 History fluticasone propionate 50 2 puff IH DAILY breathing 09/17/20 04/29/24 History mcg/actuation blister powder for inhalation acetaminophen 500 mg tablet 1,000 mg PO Q6H PRN pain 08/29/22 Unknown History aspirin 81 mg tablet,delayed 81 mg PO DAILY thinner 08/29/22 04/29/24 History release (Adult Low Dose Aspirin) ferrous sulfate 325 mg (65 mg 325 mg PO DAILY . 08/29/22 04/29/24 History iron) tablet,delayed release fluticasone propionate 50 1 spray intranasal DAILY . 08/29/22 Unknown History mcg/actuation nasal spray,suspension (Allergy Relief (fluticasone)) furosemide 20 mg tablet 20 mg PO DAILY . 08/29/22 Unknown History metformin 500 mg tablet 500 mg PO BID diabetes 08/29/22 Unknown History metoprolol tartrate 25 mg tablet 25 mg PO BID bp 08/29/22 Unknown History nitroglycerin 0.4 mg sublingual 0.4 mg sublingual Q5-15M PRN chest 08/29/22 Unknown History tablet pain amlodipine 5 mg tablet 5 mg PO DAILY BP 04/11/24 04/29/24 History duloxetine 20 mg capsule,delayed 30 mg PO DAILY depression 04/11/24 04/29/24 History release glimepiride 4 mg tablet 8 mg PO BID DM 04/11/24 Unknown History metformin 500 mg tablet,extended 1,000 mg PO BID DM 04/11/24 Unknown History release 24 hr cefazolin 2 gram intravenous 2 g IV Q8H 40 days 04/14/24 04/29/24 Rx solution metronidazole 500 mg tablet 500 mg PO TID 40 days #120 tabs 04/14/24 04/29/24 Rx insulin glargine-yfgn 100 unit/mL 20 unit (0.2 mL) subcut BID 30 04/20/24 Unknown Rx (3 mL) subcutaneous pen days #12 mL lancets 32 gauge and blood glucose #300 ea 04/20/24 Unknown Rx strips kit lisinopril 10 mg tablet 30 mg (3 x 10 mg) PO DAILY 30 days 04/20/24 04/29/24 Rx #90 tabs oxycodone 5 mg tablet 10 mg (2 x 5 mg) PO Q4H PRN PRN 04/20/24 Unknown Rx Pain Score 1-10 4 days #30 tabs pen needle, diabetic 31 gauge x #100 ea 04/20/24 Unknown Rx 5/16 (BD Ultra-Fine Short Pen Needle) pravastatin 20 mg tablet 20 mg PO QHS 30 days #30 tabs 04/20/24 Unknown Rx Allergy/AdvReac Type Severity Reaction Status Date / Time No Known Allergies Allergy Verified 05/04/24 00:03 Family History Mother Diabetes Hypertension Father Diabetes Hypertension Surgical History History of coronary artery bypass graft x 3 (~08/21/22) Status post right foot surgery S/P peripheral artery angioplasty with stent placement (~07/25/21) History of coronary artery stent placement Social History household members: none Smoking Status: Never smoker alcohol intake: never substance use type: does not use EXAM Physical Exam Const Vital Signs: 05/04/24 00:03 Temperature 98.7 F Temperature Source Oral Pulse Rate 85 Respiratory Rate 18 Blood Pressure 152/80 H Blood Pressure Mean 104 Pulse Ox 96 Oxygen Delivery Method Room Air MDM MDM MDM Narrative Medical decision making narrative: 64-year-old male presents for evaluation of left big toe bleeding from a skin abrasion. There is currently no active bleeding on physical exam. Patient is on Plavix which is why the bleeding was likely prolonged. It has since stopped. No repair is needed. No signs of infection. Patient denies any injury and therefore I do not think any imaging is needed. Patient's PICC tubing attachment was broke. This was removed and a new 1 was given to him. No actual injury to the PICC line itself. No signs of infection. Patient's foot was rebandaged. He was told to follow-up with his PCP. Patient confirmed understanding of plan. Patient stable to discharge home. Impression: 1. Left first toe skin abrasion 2. Assessment of bleeding, resolved 2. PICC line attachment evaluation Discharge Plan Triage Chief Complaint: Lower Extremity Injury ED Provider: Isidoro Gonzalez Dx/Rx/DC Orders Clinical Impression: Abrasion of toe, left Instructions: ED Abrasion Prescriptions: No Action acetaminophen 500 mg tablet 1,000 mg PO Q6H PRN (Reason: pain) ferrous sulfate 325 mg (65 mg iron) tablet,delayed release (DR/EC) 325 mg PO DAILY metoprolol tartrate 25 mg tablet 25 mg PO BID furosemide 20 mg tablet 20 mg PO DAILY metformin 500 mg tablet 500 mg PO BID aspirin [Adult Low Dose Aspirin] 81 mg tablet,delayed release (DR/EC) 81 mg PO DAILY fluticasone propionate [Allergy Relief (fluticasone)] 50 mcg/actuation spray,suspension 1 spray intranasal DAILY Rx Instructions: administer into each nostril nitroglycerin 0.4 mg tablet, sublingual 0.4 mg sublingual Q5-15M PRN (Reason: chest pain) Rx Instructions: do not exceed 3 doses per episode fluticasone propionate 50 MCG blister with device 2 puff IH DAILY clopidogrel 75 MG tablet 75 mg PO DAILY albuterol sulfate 1 INHALER inhaler 1 - 2 puff INHALATION Q4H PRN PRN (Reason: Wheezing) amlodipine 5 mg tablet 5 mg PO DAILY duloxetine 20 mg capsule,delayed release(DR/EC) 30 mg PO DAILY metformin 500 mg tablet extended release 24 hr 1,000 mg PO BID glimepiride 4 mg tablet 8 mg PO BID cefazolin 2 gram recon soln 2 g IV Q8H 40 Days Rx Instructions: stop date 05/25/24. Dx: foot osteo. Weekly bmp, cbc, and esr. Fax to [phone]. Routine picc care per protocol. metronidazole 500 mg Tablet 500 mg PO TID 40 Days Qty: 120 0RF Rx Instructions: no alcohol while on this medicine insulin glargine-yfgn 100 unit/mL (3 mL) Insulin Pen 20 unit subcut BID 30 Days Qty: 12 0RF lisinopril 10 mg Tablet 30 mg PO DAILY 30 Days Qty: 90 0RF oxycodone 5 mg Tablet 10 mg PO Q4H PRN PRN (Reason: Pain Score 1-10) 4 Days Qty: 30 0RF pravastatin 20 mg Tablet 20 mg PO QHS 30 Days Qty: 30 0RF (DME) pen needle, diabetic [BD Ultra-Fine Short Pen Needle] 31 gauge x 5/16 needle See Rx Instructions .Route Qty: 100 3RF Rx Instructions: Please inject long-acting insulin glargine twice daily (DME) lancets-blood glucose strips 32 gauge kit See Rx Instructions .Route Qty: 300 0RF Rx Instructions: Check glucose twice daily, once in the morning and once at bedtime Primary Care Provider: Vee Montana NP Referrals: Vee Montana NP, [facility] [Primary Care Provider] - 3-5 Days Print Language: Portuguese Disposition Disposition: Home, Self Care Discharge Date/Time: 05/04/24 00:50
[2024-05-04 00:50] VITALS: BP 152/80; PULSE 85; RESP 18; TEMP 37.1; O2SAT 96
== END 2024-05-04 00:50 | disposition home or self-care (01) ==
PROVIDERS: Emergency Provider Surgery; PCP Nurse Practitioner Family; Visit Provider Surgery
DX: S90.412A Abrasion, left great toe, initial encounter (principal); E11.51 Type 2 diabetes mellitus with diabetic peripheral angiopathy without gangrene; E11.42 Type 2 diabetes mellitus with diabetic polyneuropathy; I25.10 Atherosclerotic heart disease of native coronary artery without angina pectoris; Z79.01 Long term (current) use of anticoagulants; Z95.5 Presence of coronary angioplasty implant and graft; Z95.1 Presence of aortocoronary bypass graft; X58.XXXA Exposure to other specified factors, initial encounter
CPT/HCPCS: 99283; A4216

== ENCOUNTER 2024-05-04 12:18 | Outpatient (RCR) | payer MEDICARE, SELFPAY ==
[2024-04-27 15:29] LABS: Anion Gap 8 (5-15); BUN 9 mg/dL (7-18); BUN/Creat Ratio 7.4 RATIO (10-20); Calcium,Total 9.2 mg/dL (8.5-10.1); Chloride 105 mmol/L (98-107); Creatinine, Serum 1.21 mg/dL (0.70-1.30); EST Glomerular Filtration Rate 64 mL/min (>60); Est Glom Filt Rate - Afr Amer 77 mL/min (>60); Glucose 290 mg/dL (74-106); Potassium 3.9 mmol/L (3.5-5.1); Sodium Level 136 mmol/L (136-145)
[2024-04-27 15:40] LABS: Erythrocyte Sedimentation Rate 17 mm/hr (0-20)
[2024-04-27 15:41] LABS: Hematocrit 35.6 % (40-54); Hemoglobin 11.4 g/dL (13.0-16.5); Mean Corpuscular Hgb 27.8 pg (27.0-32.0); Mean Corpuscular Volume 86.8 fL (80-94); Mean Platelet Vol. 9.9 fl (6.2-12.0); Platelet Count 291 K/mm3 (150-450); RBC Distribution Width CV 12.9 % (11.6-14.6); RBC Distribution Width SD 40.7 fl (35.1-43.9); White Blood Count 5.5 K/mm3 (4.4-11.0)
[2024-05-04 12:37] LABS: Erythrocyte Sedimentation Rate 15 mm/hr (0-20)
[2024-05-04 12:41] LABS: Hemoglobin 11.5 g/dL (13.0-16.5); Mean Corp Hgb Conc 31.9 g/dL (32-36); Mean Corpuscular Hgb 27.8 pg (27.0-32.0); Mean Corpuscular Volume 87.2 fL (80-94); Mean Platelet Vol. 10.8 fl (6.2-12.0); Platelet Count 194 K/mm3 (150-450); RBC Distribution Width CV 12.8 % (11.6-14.6); RBC Distribution Width SD 40.7 fl (35.1-43.9); Red Blood Count 4.13 M/mm3 (4.6-6.2); White Blood Count 5.8 K/mm3 (4.4-11.0)
[2024-05-04 13:35] LABS: Anion Gap 8 (5-15); BUN 13 mg/dL (7-18); BUN/Creat Ratio 11.4 RATIO (10-20); Calcium,Total 9.4 mg/dL (8.5-10.1); Chloride 105 mmol/L (98-107); Creatinine, Serum 1.14 mg/dL (0.70-1.30); EST Glomerular Filtration Rate 69 mL/min (>60); Est Glom Filt Rate - Afr Amer 83 mL/min (>60); Glucose 230 mg/dL (74-106); Potassium 4.2 mmol/L (3.5-5.1); Sodium Level 136 mmol/L (136-145)
== END 2024-05-10 23:59 ==
LOC: LABSPEC 12:18
PROVIDERS: PCP Nurse Practitioner Family; Referring Provider Internal Medicine Infectious Disease; Visit Provider Internal Medicine Infectious Disease
DX: M86.8X7 Other osteomyelitis, ankle and foot (principal)
CPT/HCPCS: 80048; 85027; 85652

== ENCOUNTER 2024-05-18 12:49 | Outpatient (RCR) | payer MEDICARE, SELFPAY ==
[2024-05-11 10:30] LABS: Erythrocyte Sedimentation Rate 19 mm/hr (0-20)
[2024-05-11 10:33] LABS: Hemoglobin 12.5 g/dL (13.0-16.5); Mean Corp Hgb Conc 32.1 g/dL (32-36); Mean Corpuscular Hgb 27.1 pg (27.0-32.0); Mean Corpuscular Volume 84.4 fL (80-94); Mean Platelet Vol. 10.5 fl (6.2-12.0); Platelet Count 164 K/mm3 (150-450); RBC Distribution Width CV 12.6 % (11.6-14.6); RBC Distribution Width SD 38.5 fl (35.1-43.9); Red Blood Count 4.62 M/mm3 (4.6-6.2); White Blood Count 6.1 K/mm3 (4.4-11.0)
[2024-05-11 10:38] LABS: Anion Gap 6 (5-15); BUN 16 mg/dL (7-18); BUN/Creat Ratio 13.4 RATIO (10-20); Calcium,Total 9.7 mg/dL (8.5-10.1); Chloride 103 mmol/L (98-107); Creatinine, Serum 1.19 mg/dL (0.70-1.30); EST Glomerular Filtration Rate 65 mL/min (>60); Est Glom Filt Rate - Afr Amer 79 mL/min (>60); Glucose 251 mg/dL (74-106); Potassium 4.3 mmol/L (3.5-5.1); Sodium Level 134 mmol/L (136-145)
[2024-05-18 13:11] LABS: Erythrocyte Sedimentation Rate 16 mm/hr (0-20)
[2024-05-18 13:13] LABS: Hematocrit 38.2 % (40-54); Hemoglobin 12.4 g/dL (13.0-16.5); Mean Corp Hgb Conc 32.5 g/dL (32-36); Mean Corpuscular Hgb 27.6 pg (27.0-32.0); Mean Corpuscular Volume 84.9 fL (80-94); Mean Platelet Vol. 10.6 fl (6.2-12.0); Platelet Count 195 K/mm3 (150-450); RBC Distribution Width CV 12.6 % (11.6-14.6); RBC Distribution Width SD 38.5 fl (35.1-43.9); White Blood Count 6.5 K/mm3 (4.4-11.0)
[2024-05-18 13:30] LABS: Anion Gap 13 (5-15); BUN 16 mg/dL (7-18); BUN/Creat Ratio 12.6 RATIO (10-20); Calcium,Total 9.5 mg/dL (8.5-10.1); Chloride 103 mmol/L (98-107); Creatinine, Serum 1.27 mg/dL (0.70-1.30); EST Glomerular Filtration Rate 60 mL/min (>60); Est Glom Filt Rate - Afr Amer 73 mL/min (>60); Glucose 331 mg/dL (74-106); Potassium 4.5 mmol/L (3.5-5.1); Sodium Level 136 mmol/L (136-145)
== END 2024-06-10 23:59 ==
LOC: LABSPEC 12:49
PROVIDERS: PCP Nurse Practitioner Family; Referring Provider Internal Medicine Infectious Disease; Visit Provider Internal Medicine Infectious Disease
DX: M86.8X7 Other osteomyelitis, ankle and foot (principal)
CPT/HCPCS: 80048; 85027; 85652

== ENCOUNTER → 2024-05-28 | Outpatient (CLI) | payer MEDICARE, SELFPAY ==
--- NOTE | 2024-05-28 09:47 | ART_ITS ---
Reason For Study: s/p Lt ALBARO Angioplasty Procedure A bilateral lower extremity continuous wave Doppler with analog waveform analysis and ankle brachial indexes. Left Segmental Pressures Left brachial= 151mmHg. Left posterior tibial artery = >254mmHg. Left dorsalis pedis artery = 167mmHg. Right Segmental Pressures Right brachial= 162mmHg. Right posterior tibial artery = 167mmHg. Right dorsalis pedis artery = >254mmHg. Indices The right ankle brachial index by the posterior tibial artery is 1.03. The right ankle brachial index by the dorsalis pedis is NC. The left ankle brachial index by the posterior tibial artery is NC. The left ankle brachial index by the dorsalis pedis is 1.03. The left digital-brachial index is 0.22. VL/Ankle Brachial Index Interpretation Summary Right RACHEL 1.03, normal. Doppler/PVR waveforms of the right ankle mildly diminis hed at rest. Left RAHCEL 1.03, normal. Doppler/PVR waveforms of the left ankle mildly diminishe d at rest. TBI diminished, pedal/digit disease. Ordering Physician: Radha Cannon Referring Physician: Vee Montana Performed By: Suzi Fonseca RDCS/RVT
--- NOTE | 2024-05-28 09:47 | ADUL_ITS ---
Reason For Study: s/p Lt ALBARO Angioplasty Left Velocities Ext Iliac Artery, dist = 127 cm./sec. Common Femoral Artery, mid = 116 cm./sec. Supf. Femoral Artery, prox = 80 cm./sec. Supf. Femoral Artery, mid = 79 cm./sec. Supf. Femoral Artery, dist = 74 cm./sec. Profunda Femoral Artery = 74 cm./sec. Popliteal Artery, mid = 90 cm./sec. Post. Tibial Artery, prox = 45 cm./sec. Post Tibial Artery, mid = 63 cm./sec. Post Tibial Artery, dist. = 64 cm./sec. Peroneal Artery, prox = 60 cm./sec. Peroneal Artery, mid = 145 cm./sec. Peroneal Artery,dist. = 81 cm./sec. Ant.Tibial Artery, prox = 45 cm./sec. Ant Tibial Artery, mid = 6 cm./sec. Ant. Tibial Artery, distal = 12 cm./sec. Procedure Exam performed in department. VL/US Art Duplex Unilat Lower Ext Interpretation Summary Patent left femoral-popliteal arteries with normal velocities and waveforms. Anterior tibial artery patent proximally with normal waveforms and velocities w ith blunted waveforms and minimal flow distally. Ordering Physician: Radha Cannon Referring Physician: Vee Montana Performed By: Suzi Fonseca, RDCS, RVT
== END | disposition home or self-care (01) ==
LOC: CVS 09:45
PROVIDERS: PCP Nurse Practitioner Family; Referring Provider Physician Assistant; Visit Provider Physician Assistant
DX: I73.9 Peripheral vascular disease, unspecified (principal); L97.524 Non-pressure chronic ulcer of other part of left foot with necrosis of bone
CPT/HCPCS: 93922; 93926

== ENCOUNTER → 2024-07-05 | Outpatient (CLI) | payer MEDICARE, SELFPAY ==
--- NOTE | 2024-07-05 14:09 | VDLE_ITS ---
Reason For Study: Bilateral leg pain RIGHT LEFT GSV is normal. GSV is normal. CFV is compressible, spontaneous, phasic, CFV is compressible, spontaneous, phasic, competent and demonstrates normal competent, and demonstrates normal augmentation. augmentation. FV is compressible, spontaneous, phasic, FV is compressible, spontaneous, phasic, competent and demonstrates normal competent and demonstrates normal augmentation. augmentation. POP V is compressible, spontaneous, phasic, POP V is compressible, spontaneous, phasic, competent and demonstrates normal competent and demonstrates normal augmentation. augmentation. T/P Trunk is compressible. T/P Trunk is compressible. PTV is compressible. PTV is compressible. RT PerV is compressible. LT PerV is compressible. Procedure This is a venous duplex using B-mode, color flow and spectral Doppler. Exam performed in department. A preliminary report was called and/or faxed to Dr. Caba. VL/Venous Duplex US - Fredo Extrem Interpretation Summary Deep veins of the bilateral lower extremities are patent and compressible segme ntally. There is no evidence of bilateral lower extremity deep vein thrombosis. The bilateral great saphenous veins appear patent and compressible segmentally. Ordering Physician: Ty Caba Referring Physician: Vee Montana Performed By: Neyda Laura RVT
== END | disposition home or self-care (01) ==
LOC: CVS 14:04
PROVIDERS: PCP Nurse Practitioner Family; Referring Provider Podiatrist; Visit Provider Podiatrist
DX: M79.662 Pain in left lower leg (principal); M79.661 Pain in right lower leg
CPT/HCPCS: 93970

== ENCOUNTER 2024-07-08 09:44 | Inpatient (IN) | payer MEDICARE, SELFPAY ==
[2024-07-08] VITALS (7 sets, daily range): BP systolic 152–184; BP diastolic 77–110; PULSE 80–84; RESP 16–18; TEMP 36.4–37; O2SAT 96–99; BMI 31.5; BMI 31.4
--- NOTE | 2024-07-08 10:12 | ED.RN ---
DR POTTER DOING EXAM OF LEFT FOOT. INCISION LOOKS GOOD WITH SLIGHT REDNESS TO THE 2 TOES NEXT TO INCISION
--- NOTE | 2024-07-08 10:14 | RAD_ITS ---
STUDY: X-RAY - LEFT FOOT CLINICAL: Male, 64 years old. Wound TECHNIQUE: 3 view(s) of the foot. COMPARISON: None. FINDINGS: Normal talus, calcaneus, and tarsal bones. Normal visualized subtalar, talonavicular, calcaneocuboid, tarsal and tarsometatarsal articulations. There is transmetatarsal amputation of the fifth toe. There is osseous destruction of the distal fourth metatarsal and base of the fourth proximal phalanx. Normal metatarsophalangeal joint of the great toe. Normal tibial and fibular sesamoid bones. Normal interphalangeal joint of the great toe. Normal phalanges of the great toe. Normal second and third metatarsophalangeal joints. Normal interphalangeal joints and phalanges of the second and third toes. Postoperative changes of the soft tissues. RAD/Foot min 3 Views IMPRESSION: Osteomyelitis of the fourth metatarsal head and proximal phalanx. Electronically Signed: Guilherme Rice MD at 11:03 EST ,
--- NOTE | 2024-07-08 10:30 | EX.ED.DYSGE1 ---
HPI History of Present Illness Chief Complaint: Wound Check Narrative Narrative: Chief complaint and HPI: Wound evaluation. 64-year-old male with history of DM2, CAD, HTN, peripheral polyneuropathy presents for evaluation of foot wound. On chart review, patient is status post angioplasty of the anterior tibial artery on 04/19/2024 secondary to left foot osteomyelitis requiring fifth toe amputation with arterial insufficiency. Patient follows with Dr. Caba for ongoing wound care. He had a dehiscence of the distal portion of the amputation site. Patient states that he receives home wound care. They were concerned about his foot last week and had him evaluated by Dr. Caba. Foot looked good at that time but patient did have extra sutures placed in his wound. Patient states since then he has had increased redness to the remaining fourth and third toe. No significant pain but patient does have diabetic neuropathy. Patient is concerned that it is becoming infected and wanted it evaluated today. Denies any purulence. Denies any fever, chills, nausea, vomiting. Review of systems: See HPI Medications: As listed on the chart Allergies: As listed on the chart PFSH: Per chart Vital signs: As listed on the chart. Reviewed. Physical exam: Gen: A&O x3, NAD Head: Normocephalic, atraumatic Eyes: No sclera icterus, conjunctiva clear ENT: Moist mucous membranes Neck: Full range of motion CV: RRR, no murmurs Resp: Lungs CTA BL, no w/r/c Musc: Full ROM, healing wound to the lateral left foot with sutures- mild scabbing to the superior portion, no purulence/drainage, fluctuance, crepitus. Patient does have mild erythema to the proximal portion of the fourth and third toe. Mildly edematous. Mildly tender. Mild warmth. Skin: Warm, dry Neuro: Alert, oriented, grossly intact, sensation intact Psych: Cooperative, appropriate mood and affect [facility] Medical History (Updated 07/08/24 @ 11:[address] Ronal Rodríguez MD) Essential hypertension Atherosclerotic heart disease of [place] coronary artery without angina pectoris History of left heart catheterization (LHC) (~08/15/22) CAD (coronary artery disease) Hypertension History of coronary artery disease Cardiology follow-up encounter History of echocardiogram Open wound Uses crutches High cholesterol Dietary restriction Non-smoker Asthma Coronary artery disease 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 Diabetes mellitus with diabetic polyneuropathy Type 2 diabetes mellitus with foot ulcer Other specified peripheral vascular diseases Osteomyelitis PAD (peripheral artery disease) Delayed wound healing Hallux limitus of right foot Anxiety Depression Myocardial infarct Hallux limitus of right foot Type 2 diabetes mellitus with diabetic polyneuropathy Toe infection Heart disease HTN (hypertension) Diabetes mellitus CAD (coronary artery disease) DM2 (diabetes mellitus, type 2) Asthma Home Medications ?Medication ?Instructions ?Recorded ?Last Taken ?Type albuterol sulfate 90 mcg/actuation 1 - 2 puff inhalation Q4H PRN PRN 09/17/20 07/08/24 History aerosol inhaler Wheezing clopidogrel 75 mg tablet 75 mg PO DAILY bld thinner 09/17/20 07/08/24 History fluticasone propionate 50 2 puff IH DAILY breathing 09/17/20 04/29/24 History mcg/actuation blister powder for inhalation acetaminophen 500 mg tablet 1,000 mg PO Q6H PRN pain 08/29/22 07/08/24 History aspirin 81 mg tablet,delayed 81 mg PO DAILY thinner 08/29/22 07/08/24 History release (Adult Low Dose Aspirin) furosemide 20 mg tablet 20 mg PO DAILY . 08/29/22 07/08/24 History metoprolol tartrate 25 mg tablet 25 mg PO BID bp 08/29/22 Unknown History nitroglycerin 0.4 mg sublingual 0.4 mg sublingual Q5-15M PRN chest 08/29/22 Unknown History tablet pain amlodipine 5 mg tablet 5 mg PO DAILY BP 04/11/24 07/08/24 History duloxetine 20 mg capsule,delayed 30 mg PO DAILY depression 04/11/24 04/29/24 History release glimepiride 4 mg tablet 8 mg PO DAILY DM 04/11/24 07/08/24 History metformin 500 mg tablet,extended 1,000 mg PO BID DM 04/11/24 07/08/24 History release 24 hr lancets 32 gauge and blood glucose #300 ea 04/20/24 Unknown Rx strips kit oxycodone 5 mg tablet 10 mg (2 x 5 mg) PO Q4H PRN PRN 04/20/24 07/07/24 Rx Pain Score 1-10 4 days #30 tabs pen needle, diabetic 31 gauge x #100 ea 04/20/24 Unknown Rx 5/16 (BD Ultra-Fine Short Pen Needle) gabapentin 300 mg capsule 300 mg PO TID 07/08/24 07/08/24 History insulin glargine-yfgn 100 unit/mL 20 unit subcut DAILY 07/08/24 07/07/24 History (3 mL) subcutaneous pen Allergy/AdvReac Type Severity Reaction Status Date / Time No Known Allergies Allergy Verified 07/08/24 09:45 Family History Mother Diabetes Hypertension Father Diabetes Hypertension Surgical History History of coronary artery bypass graft x 3 (~08/21/22) Status post right foot surgery S/P peripheral artery angioplasty with stent placement (~07/25/21) History of coronary artery stent placement Social History household members: none Smoking Status: Never smoker alcohol intake: never substance use type: does not use EXAM Physical Exam Const Vital Signs: 07/08/24 09:45 07/08/24 11:45 07/08/24 11:54 Temperature 98.6 F 98.0 F Temperature Source Oral Pulse Rate 82 84 84 Respiratory Rate 18 18 18 Blood Pressure 152/77 H 165/82 H 165/82 H Blood Pressure Mean 102 109 109 Pulse Ox 96 97 98 Oxygen Delivery Method Room Air Room Air 07/08/24 11:55 Temperature 98.3 F Temperature Source Oral Pulse Rate 84 Respiratory Rate 18 Blood Pressure 165/82 H Blood Pressure Mean 109 Pulse Ox 98 Oxygen Delivery Method Room Air MDM MDM MDM Narrative Medical decision making narrative: 64-year-old male with history of DM2, CAD, HTN, peripheral polyneuropathy presents for evaluation of left foot wound. History of left fifth toe amputation. See physical exam findings. Differential diagnosis includes but is not limited to cellulitis, osteomyelitis, bacteremia. Basic labs ordered including x-ray and inflammatory markers. On chart review, I was unable to obtain the x-ray that was performed outpatient by Dr. Caba. Vitals are stable. CBC without leukocytosis. Patient has baseline anemia. BMP shows baseline renal insufficiency. Patient is hyperglycemic. He is a known diabetic. Orthostatic vital signs are negative. ESR elevated at 53. This is up trending from 05/18/2024 at 16. CRP is elevated at 141. This is downtrending from 04/11/2024 but unknown if this ever normalized before this repeat. X-ray of the left foot was interpreted by me as well as radiology, osteomyelitis of the metatarsal head and proximal phalanx of the fourth digit. Given these findings, patient will warrant admission with IV antibiotics. Zosyn and vancomycin ordered. Patient was admitted to the hospitalist service. I did speak with Dr. Caba with podiatry who will see the patient in consult. Patient was updated of all results and the plan. Impression: 1. Osteomyelitis of the metatarsal head and proximal phalanx of the fourth left foot 2. History of diabetes and osteomyelitis 3. Renal insufficiency Lab Data Labs: Laboratory Results - last 24 hr 07/08/24 10:23 WBC 8.2 RBC 4.31 L Hgb 11.7 L Hct 34.6 L MCV 80.3 MCH 27.1 MCHC 33.8 RDW Std Deviation 38.5 RDW Coeff of Divya 13.3 Plt Count 203 MPV 9.5 Immature Gran % (Auto) 0.500 Neut % (Auto) 74.6 H Lymph % (Auto) 14.0 L [place] % (Auto) 8.5 Eos % (Auto) 2.2 Baso % (Auto) 0.2 Absolute Neuts (auto) 6.1 Absolute Lymphs (auto) 1.15 Nucleated RBC % 0 ESR 53 H Sodium 134 L Potassium 3.9 Chloride 101 Carbon Dioxide 24.0 Anion Gap 8 BUN 19 H Creatinine 1.33 H Estim Creat Clear Calc 61.62 Est GFR (MDRD) Af Amer 69 Est GFR (MDRD) Non-Af 57 L BUN/Creatinine Ratio 14.3 Glucose 329 H Calcium 9.4 C-React Prot Ext Range 141.00 H Radiography Diagnostic Testing: Clinical Impression(s) from Imaging Studies Foot X-Ray 07/08/24 10:14 IMPRESSION: Osteomyelitis of the fourth metatarsal head and proximal phalanx. Electronically Signed: Guilherme Rice MD at 11:03 EST , Discharge Plan Triage Chief Complaint: Wound Check ED Provider: Isidoro Gonzalez Dx/Rx/DC Orders Prescriptions: No Action acetaminophen 500 mg tablet 1,000 mg PO Q6H PRN (Reason: pain) metoprolol tartrate 25 mg tablet 25 mg PO BID furosemide 20 mg tablet 20 mg PO DAILY aspirin [Adult Low Dose Aspirin] 81 mg tablet,delayed release (DR/EC) 81 mg PO DAILY nitroglycerin 0.4 mg tablet, sublingual 0.4 mg sublingual Q5-15M PRN (Reason: chest pain) Rx Instructions: do not exceed 3 doses per episode fluticasone propionate 50 MCG blister with device 2 puff IH DAILY clopidogrel 75 MG tablet 75 mg PO DAILY albuterol sulfate 1 INHALER inhaler 1 - 2 puff INHALATION Q4H PRN PRN (Reason: Wheezing) amlodipine 5 mg tablet 5 mg PO DAILY duloxetine 20 mg capsule,delayed release(DR/EC) 30 mg PO DAILY metformin 500 mg tablet extended release 24 hr 1,000 mg PO BID glimepiride 4 mg tablet 8 mg PO DAILY oxycodone 5 mg Tablet 10 mg PO Q4H PRN PRN (Reason: Pain Score 1-10) 4 Days Qty: 30 0RF (DME) pen needle, diabetic [BD Ultra-Fine Short Pen Needle] 31 gauge x 5/16 needle See Rx Instructions .Route Qty: 100 3RF Rx Instructions: Please inject long-acting insulin glargine twice daily (DME) lancets-blood glucose strips 32 gauge kit See Rx Instructions .Route Qty: 300 0RF Rx Instructions: Check glucose twice daily, once in the morning and once at bedtime gabapentin 300 mg capsule 300 mg PO TID insulin glargine-yfgn 100 unit/mL (3 mL) Insulin Pen 20 unit subcut DAILY Primary Care Provider: Vee Montana NP Referrals: Vee Montana BROADCAST OPERATIONS DIRECTOR, BROADCAST OPERATIONS DIRECTOR-C [Primary Care Provider] - Print Language: Jordanian
[2024-07-08 10:46] LABS: Erythrocyte Sedimentation Rate 53 mm/hr (0-20)
[2024-07-08 10:48] LABS: Absolute Lymphocyte Count 1.15 X10^3/uL (0.83-4.51); Absolute Neutrophil Count 6.1 X10^3/uL (2.0-7.7); Basophil# 0.02 X10^3/uL; Basophil% 0.2 % (0-1); Eosinophil# 0.18 X10^3/uL; Eosinophils% 2.2 % (0-5); Hematocrit 34.6 % (40-54); Hemoglobin 11.7 g/dL (13.0-16.5); Lymphocyte # 1.15 X10^3/ul (0.83-4.51); Mean Corp Hgb Conc 33.8 g/dL (32-36); Mean Corpuscular Hgb 27.1 pg (27.0-32.0); Mean Corpuscular Volume 80.3 fL (80-94); Mean Platelet Vol. 9.5 fl (6.2-12.0); Monocyte% 8.5 % (0-10); NRBC Flagged by Analyzer 0 % (0-5); Neutrophil # 6.14 X10^3/uL (2.7-7.7); Neutrophil % 74.6 % (47-70); Platelet Count 203 K/mm3 (150-450); RBC Distribution Width CV 13.3 % (11.6-14.6); RBC Distribution Width SD 38.5 fl (35.1-43.9); Red Blood Count 4.31 M/mm3 (4.6-6.2); White Blood Count 8.2 K/mm3 (4.4-11.0)
[2024-07-08 10:54] LABS: Anion Gap 8 (5-15); BUN 19 mg/dL (7-18); BUN/Creat Ratio 14.3 RATIO (10-20); Calcium,Total 9.4 mg/dL (8.5-10.1); Chloride 101 mmol/L (98-107); Creatinine, Serum 1.33 mg/dL (0.70-1.30); EST Glomerular Filtration Rate 57 mL/min (>60); Est Glom Filt Rate - Afr Amer 69 mL/min (>60); Estimated Creatinine Clearance 61.62 ml/min; Glucose 329 mg/dL (74-106); Potassium 3.9 mmol/L (3.5-5.1); Sodium Level 134 mmol/L (136-145)
[2024-07-08] MEDS: Ondansetron 4 MG/2 ML Vial IV (11:36)
[2024-07-08] MEDS: Morphine 4 MG/ML Syringe IV (11:37)
--- NOTE | 2024-07-08 11:43 | PCM.HP.STD ---
HPI - General General Date of Admission: 07/08/24 HPI Narrative ROSETTA STEWART, is a 64 M who presents for left foot infection due to diabetes. He recently had a 5th ray resection by podiatry and has been having wound care at home. His it is all podiatry on Friday and they put a stitch or 2 into the wound but it was looking okay at that time. He is complaining today about increasing redness and increased concern for infection. X-ray of the left foot shows a fourth metatarsal head osteomyelitis, he does not have a leukocytosis but his inflammatory markers with an ESR and CRP are elevated. He was given a dose of Vanco and Zosyn in the ER. [facility] Medical History (Updated 07/08/24 @ 15:[address] Ty Caba, JESSICA) Essential hypertension Atherosclerotic heart disease of [place] coronary artery without angina pectoris History of left heart catheterization (LHC) (~08/15/22) CAD (coronary artery disease) Hypertension History of coronary artery disease Cardiology follow-up encounter History of echocardiogram Open wound Uses crutches High cholesterol Dietary restriction Non-smoker Asthma Coronary artery disease 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 Diabetes mellitus with diabetic polyneuropathy Type 2 diabetes mellitus with foot ulcer Other specified peripheral vascular diseases Osteomyelitis PAD (peripheral artery disease) Delayed wound healing Hallux limitus of right foot Anxiety Depression Myocardial infarct Hallux limitus of right foot Type 2 diabetes mellitus with diabetic polyneuropathy Toe infection Heart disease HTN (hypertension) Diabetes mellitus CAD (coronary artery disease) DM2 (diabetes mellitus, type 2) Asthma Home Medications ?Medication ?Instructions ?Recorded ?Last Taken ?Type albuterol sulfate 90 mcg/actuation 1 - 2 puff inhalation Q4H PRN PRN 09/17/20 07/08/24 History aerosol inhaler Wheezing clopidogrel 75 mg tablet 75 mg PO DAILY bld thinner 09/17/20 07/08/24 History fluticasone propionate 50 2 puff IH DAILY breathing 09/17/20 04/29/24 History mcg/actuation blister powder for inhalation acetaminophen 500 mg tablet 1,000 mg PO Q6H PRN pain 08/29/22 07/08/24 History aspirin 81 mg tablet,delayed 81 mg PO DAILY thinner 08/29/22 07/08/24 History release (Adult Low Dose Aspirin) furosemide 20 mg tablet 20 mg PO DAILY . 08/29/22 07/08/24 History metoprolol tartrate 25 mg tablet 25 mg PO BID bp 08/29/22 Unknown History nitroglycerin 0.4 mg sublingual 0.4 mg sublingual Q5-15M PRN chest 08/29/22 Unknown History tablet pain amlodipine 5 mg tablet 5 mg PO DAILY BP 04/11/24 07/08/24 History duloxetine 20 mg capsule,delayed 30 mg PO DAILY depression 04/11/24 04/29/24 History release glimepiride 4 mg tablet 8 mg PO DAILY DM 04/11/24 07/08/24 History metformin 500 mg tablet,extended 1,000 mg PO BID DM 04/11/24 07/08/24 History release 24 hr lancets 32 gauge and blood glucose #300 ea 04/20/24 Unknown Rx strips kit oxycodone 5 mg tablet 10 mg (2 x 5 mg) PO Q4H PRN PRN 04/20/24 07/07/24 Rx Pain Score 1-10 4 days #30 tabs pen needle, diabetic 31 gauge x #100 ea 04/20/24 Unknown Rx 5/16 (BD Ultra-Fine Short Pen Needle) gabapentin 300 mg capsule 300 mg PO TID 07/08/24 07/08/24 History insulin glargine-yfgn 100 unit/mL 20 unit subcut DAILY 07/08/24 07/07/24 History (3 mL) subcutaneous pen Allergy/AdvReac Type Severity Reaction Status Date / Time No Known Allergies Allergy Verified 07/08/24 09:45 Family History Mother Diabetes Hypertension Father Diabetes Hypertension Surgical History History of coronary artery bypass graft x 3 (~08/21/22) Status post right foot surgery S/P peripheral artery angioplasty with stent placement (~07/25/21) History of coronary artery stent placement Social History household members: none Smoking Status: Never smoker alcohol intake: never substance use type: does not use ROS Constitutional Constitutional: Denies chills, fatigue, fever(s) or malaise Eyes Eyes: Denies blurry vision ENT HEENT: Denies headache(s) or nasal discharge Cardiovascular Cardiovascular: Denies chest pain, dyspnea on exertion or syncope Respiratory/Chest Respiratory/Chest: Denies cough, shortness of breath at rest or shortness of breath with exertion Gastrointestinal Gastrointestinal: Denies constipation, diarrhea, nausea or vomiting Genitourinary Genitourinary: Denies dysuria Integumentary Integumentary: Reports wounds Neurologic Neurologic: Denies focal weakness, numbness or tremor(s) Psychiatric Psychiatric: Denies anxiety or depression Vital Signs Vital Signs Vital Signs: 07/08/24 09:45 Temperature 98.6 F Temperature Source Oral Pulse Rate 82 Respiratory Rate 18 Blood Pressure 152/77 H Blood Pressure Mean 102 Pulse Ox 96 Oxygen Delivery Method Room Air Weight Weight: 207 lb 7.28 oz Body Mass Index (BMI) 31.5 Physical Exam Narrative General: Alert, Oriented x3, Cooperative, No apparent distress HEENT: Atraumatic, PERRLA, EOMI, Normocephalic Oral: Moist Mucosa Neck: Supple, No JVD Lungs: Clear to auscultation, Normal air movement, No rhonchi, No wheeze, No rales Cardiovascular: Regular rate, Regular Rhythm, Normal S1, Normal S2, No murmurs Abdomen: Soft, Non Tender, Non-Distended, No Hepato-splenomegaly Extremities: No edema, Capillary Refill Less than 3 Seconds Skin: Left foot wound no drainage but some mild erythema Musculoskeletal: No Tenderness to Palpation of Joints or Extremities Neurological: No focal neurological deficits, Motor Exam 5/5 strength throughout, Sensory exam intact to light touch and pain Psych/Mental Status: Normal Affect, Appropriate Results Lab / Micro Data 07/08/24 10:23 07/08/24 10:23 Labs: Laboratory Results - last 24 hr 07/08/24 10:23: WBC 8.2, RBC 4.31 L, Hgb 11.7 L, Hct 34.6 L, MCV 80.3, MCH 27.1, MCHC 33.8, RDW Std Deviation 38.5, RDW Coeff of Divya 13.3, Plt Count 203, MPV 9.5, Immature Gran % (Auto) 0.500, Neut % (Auto) 74.6 H, Lymph % (Auto) 14.0 L, [place] % (Auto) 8.5, Eos % (Auto) 2.2, Baso % (Auto) 0.2, Absolute Neuts (auto) 6.1, Absolute Lymphs (auto) 1.15, Nucleated RBC % 0, ESR 53 H, Sodium 134 L, Potassium 3.9, Chloride 101, Carbon Dioxide 24.0, Anion Gap 8, BUN 19 H, Creatinine 1.33 H, Estim Creat Clear Calc 61.62, Est GFR (MDRD) Af Amer 69, Est GFR (MDRD) Non-Af 57 L, BUN/Creatinine Ratio 14.3, Glucose 329 H, Calcium 9.4, C-React Prot Ext Range 141.00 H Imaging Radiology Impression Foot X-Ray 07/08/24 10:14 IMPRESSION: Osteomyelitis of the fourth metatarsal head and proximal phalanx. Electronically Signed: Guilherme Rice MD at 11:03 EST , Assessment & Plan Assessment/Plan (1) Osteomyelitis: PLAN: Plan 1. Fourth metatarsal head osteomyelitis ? Will consult wound care and podiatry ? Continue with IV vancomycin and IV Zosyn ? Will obtain a wound culture 2. CAD status post CABG and stents/essential HTN/HLD ? Will continue with his home blood pressure medications ? Monitor make adjustments as necessary ? Will hold his Plavix pending possibility of surgery but continue with his aspirin ? Continue with Norvasc and metoprolol ? Continue with Lipitor 3. DM2 with neuropathy ? Will continue sliding scale insulin ? Will continue with 10 units of Lantus ? Monitor make adjustments as necessary ? Carb controlled diet ? Continue with gabapentin but will hold his home blood pressure medications DVT: Lovenox 75 minutes was spent on direct patient care, including documentation as well as chart review and collaboration with colleagues Charges/Coding Visit Charges Inpatient E&M: 61610 Init Hosp L3
[2024-07-08] MEDS: Piperacil/Tazobactam 4.5 GM in 0.9% Normal Saline (100mL MB+) 100 ML IV (12:02)
[2024-07-08] MEDS: Vancomycin HCl 2,000 MG in 0.9% Normal Saline (500mL Bag) 500 ML 250 MG IV (13:29)
--- NOTE | 2024-07-08 13:39 | PCM.RX.CS ---
Consult Antibiotic Management Pharmacy has been consulted to manage selected antibiotic: Vancomycin Type of Intervention Type of Consult: New start Suspected Infection Suspected Infection: Osteomyelitis Prior Doses of Antibiotics Prior Doses of Antibiotics Received/Current Regimen: Vancomycin 2000 mg IV x 1 given 07/08/24 @ 1330, patient is also on piperacillin/tazobactam 3.375 grams Q8H Labs Labs: Sodium 134 mmol/L (136-145) L 07/08/24 10:23 Potassium 3.9 mmol/L (3.5-5.1) 07/08/24 10:23 Chloride 101 mmol/L (98-107) 07/08/24 10:23 Carbon Dioxide 24.0 mmol/L (21.0-32.0) 07/08/24 10:23 Anion Gap 8 (5-15) 07/08/24 10:23 BUN 19 mg/dL (7-18) H 07/08/24 10:23 Creatinine 1.33 mg/dL (0.70-1.30) H 07/08/24 10:23 Est GFR (MDRD) Af Amer 69 mL/min (>60) 07/08/24 10:23 Est GFR (MDRD) Non-Af 57 mL/min (>60) L 07/08/24 10:23 BUN/Creatinine Ratio 14.3 RATIO (10-20) 07/08/24 10:23 Glucose 329 mg/dL (74-106) H 07/08/24 10:23 Dosing Weight Weight used for dosin kg Estimated Creatinine Clearance Estimated Creatinine Clearance: ~ 62 Goal Trough Goal Trough: 15-20 mcg/mL Pharmacy Plan for Drug Dosing Pharmacy Plan for Drug Dosing: Vancomycin 2000 mg IV x 1 followed by 1000 mg Q12h Pharmacy Service will continue to monitor and adjust dosing as required. Follow-Up Labs Follow-Up Labs: Trough: Vancomycin Date/Time Labs Ordered Labs to be done on [date and time ordered]: 07/10/24 @ 0100
--- NOTE | 2024-07-08 14:07 | ED.RN ---
PT WAS VERY IRRITATED ABOUT FINDING THAT HE HAD AN INFECTION AGAIN IN HIS FOOT. HE EXPRESSED HE IS GOING TO FUCKING KILL HIS DR THAT HE KEEPS BEING TOLD IT'S OK AND NOW THIS PT'S MOM WAS AT THE BEDSIDE AND ADVISED PT TO CALM DOWN, I UNDERSTAND. PT ADVISED THAT THE INFECTIONS LOVE HIGH BLOOD SUGARS SO KEEPING THOSE IN CONTROL WILL HELP HIS HEALING. THIS NURSE ALSO ADVISED THIS PT THAT INFECTIONS CAN MOVE QUICKLY. PT WAS VERY UPSET BUT THE BEHAVIOR BETWEEN THE PT AND HIS MOTHER WAS VERY ODD AND DEPENDANT.
--- NOTE | 2024-07-08 14:33 | CON.PCM_ITS ---
Assessment & Plan Assessment/Plan (1) Cellulitis of left lower limb: (2) Acute osteomyelitis of toe of left foot: (3) Diabetes mellitus with diabetic polyneuropathy: (4) Other specified peripheral vascular diseases: PLAN: Plan Evaluation performed, reviewed diagnostic data. Reviewed new left foot xrays, there is destruction changes of the 4th metatarsal head and base of 4th toe proximal phalanx, no gas in the tissues, likely this is due osteomyelitis - further evaluation indicated, MRI ordered for further evaluation. A culture was obtained of 5th ray amputation site. Patient is on Vanc/Zosyn. No immediate foot surgical plans. Will await further workup. Wound care: betadine solution topically with overlying gauze, kerlix and belem dressing. Heel weightbearing left foot for short distances only. PAD: patient follows with Dr. Dickens. Podiatry will continue to follow, thank you for consultation. HPI Consult Data Date of Consult: 07/08/24 HPI Narrative Reason for Consultation: Redness, pain left foot HPI Narrative: ROSETTA STEWART, is a 64 M who presents with redness and swelling left foot, he relates just developed, he went to urgent care today, and was sent to ER. He relates prior to this it was doing very well. In ER xrays were obtained and noted bone destruction of the base of 4th toe proximal phalanx and head of 4th metatarsal, ESR and CRP are elevated, WBC is normal. He was admitted for further workup and management. He has been started on IV antibiotics. Podiatry was consulted by ER and hospital medicine. [facility] Medical History (Updated 07/08/24 @ 15:[address] Ty Caba, JESSICA) Essential hypertension Atherosclerotic heart disease of [place] coronary artery without angina pectoris History of left heart catheterization (LHC) (~08/15/22) CAD (coronary artery disease) Hypertension History of coronary artery disease Cardiology follow-up encounter History of echocardiogram Open wound Uses crutches High cholesterol Dietary restriction Non-smoker Asthma Coronary artery disease 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 Diabetes mellitus with diabetic polyneuropathy Type 2 diabetes mellitus with foot ulcer Other specified peripheral vascular diseases Osteomyelitis PAD (peripheral artery disease) Delayed wound healing Hallux limitus of right foot Anxiety Depression Myocardial infarct Hallux limitus of right foot Type 2 diabetes mellitus with diabetic polyneuropathy Toe infection Heart disease HTN (hypertension) Diabetes mellitus CAD (coronary artery disease) DM2 (diabetes mellitus, type 2) Asthma Home Medications ?Medication ?Instructions ?Recorded ?Last Taken ?Type albuterol sulfate 90 mcg/actuation 1 - 2 puff inhalation Q4H PRN PRN 09/17/20 07/08/24 History aerosol inhaler Wheezing clopidogrel 75 mg tablet 75 mg PO DAILY bld thinner 09/17/20 07/08/24 History fluticasone propionate 50 2 puff IH DAILY breathing 09/17/20 04/29/24 History mcg/actuation blister powder for inhalation acetaminophen 500 mg tablet 1,000 mg PO Q6H PRN pain 08/29/22 07/08/24 History aspirin 81 mg tablet,delayed 81 mg PO DAILY thinner 08/29/22 07/08/24 History release (Adult Low Dose Aspirin) furosemide 20 mg tablet 20 mg PO DAILY . 08/29/22 07/08/24 History metoprolol tartrate 25 mg tablet 25 mg PO BID bp 08/29/22 Unknown History nitroglycerin 0.4 mg sublingual 0.4 mg sublingual Q5-15M PRN chest 08/29/22 Unknown History tablet pain amlodipine 5 mg tablet 5 mg PO DAILY BP 04/11/24 07/08/24 History duloxetine 20 mg capsule,delayed 30 mg PO DAILY depression 04/11/24 04/29/24 History release glimepiride 4 mg tablet 8 mg PO DAILY DM 04/11/24 07/08/24 History metformin 500 mg tablet,extended 1,000 mg PO BID DM 04/11/24 07/08/24 History release 24 hr lancets 32 gauge and blood glucose #300 ea 04/20/24 Unknown Rx strips kit oxycodone 5 mg tablet 10 mg (2 x 5 mg) PO Q4H PRN PRN 04/20/24 07/07/24 Rx Pain Score 1-10 4 days #30 tabs pen needle, diabetic 31 gauge x #100 ea 04/20/24 Unknown Rx 5/16 (BD Ultra-Fine Short Pen Needle) gabapentin 300 mg capsule 300 mg PO TID 07/08/24 07/08/24 History insulin glargine-yfgn 100 unit/mL 20 unit subcut DAILY 07/08/24 07/07/24 History (3 mL) subcutaneous pen Allergy/AdvReac Type Severity Reaction Status Date / Time No Known Allergies Allergy Verified 07/08/24 09:45 Family History Mother Diabetes Hypertension Father Diabetes Hypertension Surgical History History of coronary artery bypass graft x 3 (~08/21/22) Status post right foot surgery S/P peripheral artery angioplasty with stent placement (~07/25/21) History of coronary artery stent placement Social History household members: none Smoking Status: Never smoker alcohol intake: never substance use type: does not use Physical Exam Const alert and oriented x3 Constitutional Narrative: Left foot with erythema noted to 4th toe to 4th MTPJ, there is diffuse LE edema bilateral left worse than right, sutures intact at 5th ray amputation site and site is well coapted with no drainage, but I did remove the sutures and checked for abscess and there was no abscess, no necrosis, no purulence, no maloder present to site, the wound at this site does not probe to bone but does probe to soft tissues of the 4th MTPJ, there is no undermining, no blisters, no crepitus, no fluctuance present, there is no POP or pain on ROM to left foot or ankle, no evidence of acute ischemia to left foot, CFT < 2 seconds to 1-4 toes, there is chronic peripheral neuropathy present. No other open lesions left foot. Lab / Micro Data 07/08/24 10:23 07/08/24 10:23 Labs: Laboratory Results - last 24 hr 07/08/24 10:23: WBC 8.2, RBC 4.31 L, Hgb 11.7 L, Hct 34.6 L, MCV 80.3, MCH 27.1, MCHC 33.8, RDW Std Deviation 38.5, RDW Coeff of Divya 13.3, Plt Count 203, MPV 9.5, Immature Gran % (Auto) 0.500, Neut % (Auto) 74.6 H, Lymph % (Auto) 14.0 L, [place] % (Auto) 8.5, Eos % (Auto) 2.2, Baso % (Auto) 0.2, Absolute Neuts (auto) 6.1, Absolute Lymphs (auto) 1.15, Nucleated RBC % 0, ESR 53 H, Sodium 134 L, Potassium 3.9, Chloride 101, Carbon Dioxide 24.0, Anion Gap 8, BUN 19 H, C reatinine 1.33 H, Estim Creat Clear Calc 61.62, Est GFR (MDRD) Af Amer 69, Est GFR (MDRD) Non-Af 57 L, BUN/Creatinine Ratio 14.3, Glucose 329 H, Calcium 9.4, C -React Prot Ext Range 141.00 H Imaging Radiology Impression Foot X-Ray 07/08/24 10:14 IMPRESSION: Osteomyelitis of the fourth metatarsal head and proximal phalanx. Electronically Signed: Guilherme Rice MD at 11:03 EST ,
[2024-07-08 14:42] LABS: Bedside Glucose 223 mg/dL (74-106)
[2024-07-08 15:24] LABS: Hemoglobin A1c 9.6 % (3.8-5.6)
[2024-07-08] MEDS: Insulin Lispro 100 UNIT/ML INSULN.PEN SC ×2 (16:53→22:08)
[2024-07-08] MEDS: Acetaminophen 500 MG Tablet 1000 MG PO (16:54)
[2024-07-08] MEDS: oxyCODONE 5 MG Tablet 10 MG PO ×2 (16:54→22:19)
[2024-07-08 17:06] LABS: Bedside Glucose 231 mg/dL (74-106)
[2024-07-08] MEDS: Piperacil/Tazobactam 3.375 GM in 0.9% Normal Saline (50mL MB+) 50 ML IV (21:12)
[2024-07-08] MEDS: hydrALAZINE 20 MG/ML Vial 10 MG IV (21:53)
[2024-07-08] MEDS: 0.9% Saline Lock 10 ML Syringe IV (21:54)
[2024-07-08] MEDS: Insulin Glargine-YFGN 100 UNIT/ML Pen 10 UNIT SC (22:07)
[2024-07-08] MEDS: Atorvastatin Calcium 40 MG Tablet PO (22:08)
[2024-07-08 22:32] LABS: Bedside Glucose 248 mg/dL (74-106)
[2024-07-09] VITALS (7 sets, daily range): BP systolic 126–193; BP diastolic 74–82; PULSE 88–95; RESP 16–18; TEMP 36.6–37.1; O2SAT 92–98
[2024-07-09] MEDS: Vancomycin IV 1,000 MG/200 ML BAG 200 MG IV ×2 (01:31→13:16)
[2024-07-09] MEDS: Acetaminophen 500 MG Tablet 1000 MG PO ×2 (01:55→10:28)
[2024-07-09] MEDS: hydrALAZINE 20 MG/ML Vial 10 MG IV ×2 (01:55→07:05)
[2024-07-09] MEDS: 0.9% Saline Lock 10 ML Syringe IV ×5 (01:56→21:20)
[2024-07-09] MEDS: oxyCODONE 5 MG Tablet 10 MG PO ×3 (05:18→21:19)
[2024-07-09] MEDS: Piperacil/Tazobactam 3.375 GM in 0.9% Normal Saline (50mL MB+) 50 ML IV ×3 (06:18→21:11)
[2024-07-09] MEDS: 0.9% Normal Saline (500mL Bag) 500 ML 15 ML IV (06:21)
[2024-07-09] MEDS: Insulin Lispro 100 UNIT/ML INSULN.PEN SC ×4 (06:28→21:14)
[2024-07-09 07:16] LABS: Bedside Glucose 255 mg/dL (74-106)
[2024-07-09 07:57] LABS: Absolute Lymphocyte Count 1.53 X10^3/uL (0.83-4.51); Absolute Neutrophil Count 6.4 X10^3/uL (2.0-7.7); Basophil# 0.02 X10^3/uL; Basophil% 0.2 % (0-1); Eosinophils% 2.2 % (0-5); Hematocrit 35.4 % (40-54); Hemoglobin 11.5 g/dL (13.0-16.5); Lymphocyte # 1.53 X10^3/ul (0.83-4.51); Lymphocyte % 17.2 % (19-41); Mean Corp Hgb Conc 32.5 g/dL (32-36); Mean Corpuscular Hgb 26.7 pg (27.0-32.0); Mean Corpuscular Volume 82.3 fL (80-94); Mean Platelet Vol. 9.4 fl (6.2-12.0); Monocyte# 0.74 X10^3/uL; Monocyte% 8.3 % (0-10); NRBC Flagged by Analyzer 0 % (0-5); Neutrophil # 6.39 X10^3/uL (2.7-7.7); Neutrophil % 71.7 % (47-70); Platelet Count 222 K/mm3 (150-450); RBC Distribution Width CV 13.3 % (11.6-14.6); White Blood Count 8.9 K/mm3 (4.4-11.0)
[2024-07-09] MEDS: ALPRAZolam 0.5 MG Tablet PO ×2 (08:03→21:19)
[2024-07-09] MEDS: Ondansetron 4 MG/2 ML Vial IV (08:03)
--- NOTE | 2024-07-09 08:44 | WOUNDNOTE ---
wound photo: left foot
--- NOTE | 2024-07-09 08:45 | WOUNDNOTE ---
wound photo: left lateral foot
--- NOTE | 2024-07-09 08:45 | WOUNDNOTE ---
wound photo: left foot
--- NOTE | 2024-07-09 09:00 | MRI_ITS ---
INDICATION: possible osteomyelitis, [place] 4th MTPJ, h/o recent surgery to 5th metatarsal, incision not healing EXAMINATION: MRI - LEFT MR Forefoot W/O Contrast TECHNIQUE: Multiplanar and multisequence MR images of the LEFT foot. IV Contrast Dosage and Agent: None. COMPARISON: FINDINGS: BONE: Status post transmetatarsal amputation of the fifth toe. There is marrow edema noted involving the distal third of the fourth metatarsus as well as the proximal phalanx of fourth toe. Osteomyelitis is suspected in the proper clinical settings JOINTS: No joint effusion. Mild subcutaneous edema laterally . Subcutaneous. MRI/Lower Ext/No Jt/w/o IMPRESSION: Osteomyelitis suspected of the fourth metatarsus and the proximal phalanx of fourth toe. Status post some dilatation of the fifth toe. Electronically Signed: Brandon Paul DO at 10:11 EST Reading Location ID and State: [facility] / [place] Tel [phone], Service support ,
[2024-07-09 09:09] LABS: Anion Gap 8 (5-15); BUN 13 mg/dL (7-18); Calcium,Total 8.3 mg/dL (8.5-10.1); Chloride 98 mmol/L (98-107); EST Glomerular Filtration Rate 80 mL/min (>60); Est Glom Filt Rate - Afr Amer 96 mL/min (>60); Estimated Creatinine Clearance 81.75 ml/min; Glucose 247 mg/dL (74-106); Potassium 3.6 mmol/L (3.5-5.1); Sodium Level 132 mmol/L (136-145)
--- NOTE | 2024-07-09 09:10 | PN.HOSP_ITS ---
Subjective Subjective Continues to have anxiety no issues overnight, will continue with antibiotics Objective Data Objective Data Vital Signs: Vital Signs Temp Pulse Resp BP Pulse Ox O2 Del Method 98.8 F 94 18 193/78 H 97 Room Air 07/09/24 07:02 07/09/24 07:05 07/09/24 07:02 07/09/24 07:05 07/09/24 07:02 07/09/24 07:02 Oxygen Delivery Method Room Air Weight: 206 lb 5.643 oz Body Mass Index (BMI) 31.4 Intake & Output: Intake and Output for Last 24 Hours 07/08/24 07/09/24 07/10/24 03:59 03:59 03:59 Intake Total 1490 / 1490 400 / 400 Output Total 300 / 300 350 / 350 Balance 1190 / 1190 50 / 50 Lab / Micro Data 07/09/24 06:27 07/09/24 06:27 Labs: Laboratory Results - last 24 hr 07/08/24 10:23: WBC 8.2, RBC 4.31 L, Hgb 11.7 L, Hct 34.6 L, MCV 80.3, MCH 27.1, MCHC 33.8, RDW Std Deviation 38.5, RDW Coeff of Divya 13.3, Plt Count 203, MPV 9.5, Immature Gran % (Auto) 0.500, Neut % (Auto) 74.6 H, Lymph % (Auto) 14.0 L, [place] % (Auto) 8.5, Eos % (Auto) 2.2, Baso % (Auto) 0.2, Absolute Neuts (auto) 6.1, Absolute Lymphs (auto) 1.15, Nucleated RBC % 0, ESR 53 H, Sodium 134 L, Potassium 3.9, Chloride 101, Carbon Dioxide 24.0, Anion Gap 8, BUN 19 H, C reatinine 1.33 H, Estim Creat Clear Calc 61.62, Est GFR (MDRD) Af Amer 69, Est GFR (MDRD) Non-Af 57 L, BUN/Creatinine Ratio 14.3, Glucose 329 H, Hemoglobin A1c 9.6 H, Calcium 9.4, C-React Prot Ext Range 141.00 H 07/08/24 13:49: POC Glucose 223 H 07/08/24 16:48: POC Glucose 231 H 07/08/24 22:00: POC Glucose 248 H 07/09/24 06:26: POC Glucose 255 H 07/09/24 06:27: WBC 8.9, RBC 4.30 L, Hgb 11.5 L, Hct 35.4 L, MCV 82.3, MCH 26.7 L, MCHC 32.5, RDW Std Deviation 40.0, RDW Coeff of Divya 13.3, Plt Count 222, MPV 9.4, Immature Gran % (Auto) 0.400, Neut % (Auto) 71.7 H, Lymph % (Auto) 17.2 L, [place] % (Auto) 8.3, Eos % (Auto) 2.2, Baso % (Auto) 0.2, Absolute Neuts (auto) 6.4, Absolute Lymphs (auto) 1.53, Nucleated RBC % 0, Sodium 132 L, Potassium 3.6, Chloride 98, Carbon Dioxide 26.0, Anion Gap 8, BUN 13, Creatinine 1.00, Estim Creat Clear Calc 81.75, Est GFR (MDRD) Af Amer 96, Est GFR (MDRD) Non-Af 80, BUN/Creatinine Ratio 13.0, Glucose 247 H, Calcium 8.3 L Micro: Microbiology 07/08/24 15:05 Wound - Left Foot Gram Stain - Final Radiography Diagnostic Testing: Radiology Impression Foot X-Ray 07/08/24 10:14 IMPRESSION: Osteomyelitis of the fourth metatarsal head and proximal phalanx. Electronically Signed: Guilherme Rice MD at 11:03 EST Reading Location ID and State: [address] [place] [address] , Service support , Physical Exam Narrative General: Alert, Oriented x3, Cooperative, No apparent distress HEENT: Atraumatic, PERRLA, EOMI, Normocephalic Oral: Moist Mucosa Neck: Supple, No JVD Lungs: Clear to auscultation, Normal air movement, No rhonchi, No wheeze, No rales Cardiovascular: Regular rate, Regular Rhythm, Normal S1, Normal S2, No murmurs Abdomen: Soft, Non Tender, Non-Distended, No Hepato-splenomegaly Extremities: No edema, Capillary Refill Less than 3 Seconds Skin: Left foot wound no drainage but some mild erythema Musculoskeletal: No Tenderness to Palpation of Joints or Extremities Neurological: No focal neurological deficits, Motor Exam 5/5 strength throughout, Sensory exam intact to light touch and pain Psych/Mental Status: Normal Affect, Appropriate, anxious Assessment & Plan Assessment/Plan (1) Osteomyelitis: PLAN: Plan 1. Fourth metatarsal head osteomyelitis ? Will consult wound care and podiatry ? Continue with IV vancomycin and IV Zosyn ? Will obtain a wound culture ? MRI is pending per podiatry for further characterization of the osteomyelitis in his foot ? Will place him on as needed Xanax to help control his anxiety 2. CAD status post CABG and stents/essential HTN/HLD ? Will continue with his home blood pressure medications ? Monitor make adjustments as necessary ? Will hold his Plavix pending possibility of surgery but continue with his aspirin ? Continue with Norvasc and metoprolol ? Continue with Lipitor 3. DM2 with neuropathy ? Will continue sliding scale insulin ? Will continue with 10 units of Lantus ? Monitor make adjustments as necessary ? Carb controlled diet ? Continue with gabapentin but will hold his home blood pressure medications DVT: Lovenox Charges/Coding Visit Charges Inpatient E&M: 34641 Subs Hosp L2
[2024-07-09] MEDS: Aspirin E.C. 81 MG Tablet PO (10:27)
[2024-07-09] MEDS: Enoxaparin 40 MG/0.4 ML Syringe SC (10:27)
[2024-07-09] MEDS: amLODIPine 5 MG Tablet PO (10:27)
[2024-07-09] MEDS: DULoxetine Hcl 30 MG Capsule PO (10:27)
[2024-07-09] MEDS: Lisinopril 10 MG Tablet PO (10:28)
[2024-07-09 11:32] LABS: Bedside Glucose 297 mg/dL (74-106)
--- NOTE | 2024-07-09 12:13 | PCM.PROGNOTE ---
Subjective Subjective Patient was seen today for follow up on left foot. He is resting in bed, he relates he is anxious relates he could not sleep last night due to this. He had MRI left foot. Also ha1c was 9.6 - he relates his diet has been bad and he binge eats unhealthy foods. Objective Data Objective Data Vital Signs: Vital Signs Temp Pulse Resp BP Pulse Ox O2 Del Method 98.3 F 89 16 148/81 H 98 Room Air 07/09/24 10:14 07/09/24 10:14 07/09/24 10:14 07/09/24 10:14 07/09/24 10:14 07/09/24 10:14 Oxygen Delivery Method Room Air Weight: 93.6 kg Body Mass Index (BMI) 31.4 Intake & Output: Intake and Output for Last 24 Hours 07/07/24 07/08/24 07/09/24 23:59 23:59 23:59 Intake Total 1240 / 1240 700 / 700 Output Total 300 / 300 350 / 350 Balance 940 / 940 350 / 350 Lab / Micro Data 07/09/24 06:27 07/09/24 06:27 Labs: Laboratory Results - last 24 hr 07/08/24 10:23: Hemoglobin A1c 9.6 H 07/08/24 13:49: POC Glucose 223 H 07/08/24 16:48: POC Glucose 231 H 07/08/24 22:00: POC Glucose 248 H 07/09/24 06:26: POC Glucose 255 H 07/09/24 06:27: WBC 8.9, RBC 4.30 L, Hgb 11.5 L, Hct 35.4 L, MCV 82.3, MCH 26.7 L, MCHC 32.5, RDW Std Deviation 40.0, RDW Coeff of Divya 13.3, Plt Count 222, MPV 9.4, Immature Gran % (Auto) 0.400, Neut % (Auto) 71.7 H, Lymph % (Auto) 17.2 L, [place] % (Auto) 8.3, Eos % (Auto) 2.2, Baso % (Auto) 0.2, Absolute Neuts (auto) 6.4, Absolute Lymphs (auto) 1.53, Nucleated RBC % 0, Sodium 132 L, Potassium 3.6, Chloride 98, Carbon Dioxide 26.0, Anion Gap 8, BUN 13, Creatinine 1.00, Estim Creat Clear Calc 81.75, Est GFR (MDRD) Af Amer 96, Est GFR (MDRD) Non-Af 80, BUN/Creatinine Ratio 13.0, Glucose 247 H, Calcium 8.3 L 07/09/24 11:14: POC Glucose 297 H Micro: Microbiology 07/08/24 15:05 Wound - Left Foot Gram Stain - Final Radiography Diagnostic Testing: Radiology Impression Lower Extremity MRI 07/09/24 09:00 IMPRESSION: Osteomyelitis suspected of the fourth metatarsus and the proximal phalanx of fourth toe. Status post some dilatation of the fifth toe. Electronically Signed: Brandon Paul, DO at 10:11 EST Reading Location ID and State: [facility] / [place] Tel [phone], Service support , Physical Exam Const alert, oriented x3 and no apparent distress Constitutional Narrative: Left foot - stable wound to 5th ray amp site with erythema noted to 4th toe to 4th MTPJ - appears some improved today. Assessment & Plan Assessment/Plan (1) Cellulitis of left lower limb: (2) Acute osteomyelitis of toe of left foot: (3) Diabetes mellitus with diabetic polyneuropathy: (4) Other specified peripheral vascular diseases: PLAN: Plan Evaluation performed, reviewed diagnostic data. Reviewed new left foot xrays, there is destruction changes of the 4th metatarsal head and base of 4th toe proximal phalanx, no gas in the tissues. A culture was obtained of 5th ray amputation site - results pending at this time. Patient is on Vanc/Zosyn. MRI left foot has been obtained and reviewed - there are findings c/w osteomyelitis 4th metatarsal distally and also to base of 4th toe proximal phalanx - discussed with patient - discussed possible amputation - discussed possible TMA as well to create more functional foot. He relates he would really like to avoid amputation - he relate he would like to proceed with nonsurgical management with wound care and antibiotics. Wound care: betadine solution topically with overlying gauze, kerlix and belem dressing. Heel weightbearing left foot for short distances only. PAD: patient follows with Dr. Dickens. Podiatry will continue to follow.
--- NOTE | 2024-07-09 13:33 | CASEMGMT ---
REJI PHILLIPS Assessment Face to Face with patient for initial transition planning/care coordination assessment. REJI PHILLIPS introduced self and role at [facility] [place], pt voices understanding. Pt is A&Ox4 and is resting comfortably in bed and is calm. Pt mother at bedside. Care providers, pharmacy, and demographics verified. Admitting dx: Osteomyelitis LACE Strata: 3 PCP: [place] Specialists: Gertrudis (Podiatry), Cardio through [facility] (Cannot recall name) Preferred Pharmacy: [facility] Insurance: [facility] Prescription Benefit: Yes LNOK: Caryl Vargas (Mother) Living Arrangements: Pt lives alone in a single story home with 2 steps to enter ADLs/IADLs: Reports ind Transportation: Self, mother DME: Pt takes insulin shots and states that he has a functioning BGM with sufficient supplies. Pt also reports that he has crutches, scooter, and a FWW. HHC/SNF: Pt is active with [facility] (SN) for weekly wound care. TC to [facility] and [facility] states that they will be able to resume care at time of DC. Denies SNF Wound: Pt states that he changes his dressing daily e/f the day that the nurse comes during the week. Pt states that he is comfortable with this. Pt denies wanting to go to the [facility]. Pt?s goal: Return home with the continuation of HHC Plan: Home with the continuation of HH. Follow for home IV ATB needs. Pt was recently DC'd home with HH and IV ATBs through [facility]. Pt states that if he needs home IV ATBs again that he would like to use [facility]. Pt states that he himself will be the teachable CG as he is already comfortable with infusing these medications. Cultures are pending. Pt states that he is projected to be here through the weekend. Pt mom states that she is able to help the pt out at home as needed as well. Pt and pt mom deny further needs at this time. Pema Gordon RN, CM
[2024-07-09] MEDS: Gabapentin 300 MG Capsule PO ×2 (14:32→21:11)
[2024-07-09 16:43] LABS: Bedside Glucose 261 mg/dL (74-106)
[2024-07-09] MEDS: Atorvastatin Calcium 40 MG Tablet PO (21:11)
[2024-07-09] MEDS: Insulin Glargine-YFGN 100 UNIT/ML Pen 10 UNIT SC (21:13)
[2024-07-09 21:33] LABS: Bedside Glucose 208 mg/dL (74-106)
[2024-07-10 01:53] LABS: Vancomycin, Trough Level 18.6 ug/mL (5.0-15.0)
[2024-07-10 01:55] VITALS: BP 117/76; PULSE 89; RESP 16; TEMP 36.5; O2SAT 97
--- NOTE | 2024-07-10 02:00 | PCM.RX.CS ---
Consult Antibiotic Management Pharmacy has been consulted to manage selected antibiotic: Vancomycin Type of Intervention Type of Consult: Follow-up Labs Labs: Sodium 132 mmol/L (136-145) L 07/09/24 06:27 Potassium 3.6 mmol/L (3.5-5.1) 07/09/24 06:27 Chloride 98 mmol/L (98-107) 07/09/24 06:27 Carbon Dioxide 26.0 mmol/L (21.0-32.0) 07/09/24 06:27 Anion Gap 8 (5-15) 07/09/24 06:27 BUN 13 mg/dL (7-18) 07/09/24 06:27 Creatinine 1.00 mg/dL (0.70-1.30) 07/09/24 06:27 Est GFR (MDRD) Af Amer 96 mL/min (>60) 07/09/24 06:27 Est GFR (MDRD) Non-Af 80 mL/min (>60) 07/09/24 06:27 BUN/Creatinine Ratio 13.0 RATIO (10-20) 07/09/24 06:27 Glucose 247 mg/dL (74-106) H 07/09/24 06:27 Vancomycin Trough 18.6 ug/mL (5.0-15.0) H 07/10/24 01:28 Microbiology Microbiology: Microbiology 07/08/24 15:05 Wound - Left Foot Gram Stain - Final 07/08/24 15:05 Wound - Left Foot Wound Culture - Preliminary Gram negative aidan 07/09/24 07:11 Wound - Left Foot Gram Stain - Final Goal Trough Goal Trough: 15-20 mcg/mL Pharmacy Plan for Drug Dosing Pharmacy Plan for Drug Dosing: Pharmacy Service will continue to monitor and adjust dosing as required. TROUGH 18.6 @ 12 HOURS. NO CHANGES, FOLLOW UP TROUGH IN 2 DAYS Follow-Up Labs Follow-Up Labs: Trough: Vancomycin Date/Time Labs Ordered Labs to be done on [date and time ordered]: 07/12 @ 0100
[2024-07-10] MEDS: Vancomycin IV 1,000 MG/200 ML BAG 200 MG IV ×2 (02:06→13:48)
[2024-07-10] MEDS: Piperacil/Tazobactam 3.375 GM in 0.9% Normal Saline (50mL MB+) 50 ML IV ×3 (06:18→21:12)
[2024-07-10] MEDS: Gabapentin 300 MG Capsule PO ×3 (06:18→21:13)
[2024-07-10 06:20] VITALS: BP 137/95; PULSE 90; RESP 18; TEMP 36.4; O2SAT 94
[2024-07-10] MEDS: Insulin Lispro 100 UNIT/ML INSULN.PEN SC ×4 (06:25→21:15)
[2024-07-10 06:48] LABS: Bedside Glucose 246 mg/dL (74-106)
--- NOTE | 2024-07-10 09:06 | PN.HOSP_ITS ---
Subjective Subjective No issues overnight, feels better with the Xanax Objective Data Objective Data Vital Signs: Vital Signs Temp Pulse Resp BP Pulse Ox O2 Del Method 97.5 F L 90 18 137/95 H 94 Room Air 07/10/24 06:20 07/10/24 06:20 07/10/24 06:20 07/10/24 06:20 07/10/24 06:20 07/10/24 06:20 Oxygen Delivery Method Room Air Weight: 206 lb 5.643 oz Body Mass Index (BMI) 31.4 Intake & Output: Intake and Output for Last 24 Hours 07/09/24 07/10/24 07/11/24 03:59 03:59 03:59 Intake Total 1490 / 1490 1175.75 / 1175.75 86.75 / 86.75 Output Total 300 / 300 350 / 350 100 / 100 Balance 1190 / 1190 825.75 / 825.75 -13.25 / -13.25 Lab / Micro Data 07/09/24 06:27 07/09/24 06:27 Labs: Laboratory Results - last 24 hr 07/09/24 06:27: Sodium 132 L, Potassium 3.6, Chloride 98, Carbon Dioxide 26.0, Anion Gap 8, BUN 13, Creatinine 1.00, Estim Creat Clear Calc 81.75, Est GFR (MDRD) Af Amer 96, Est GFR (MDRD) Non-Af 80, BUN/Creatinine Ratio 13.0, Glucose 247 H, Calcium 8.3 L 07/09/24 11:14: POC Glucose 297 H 07/09/24 16:21: POC Glucose 261 H 07/09/24 21:10: POC Glucose 208 H 07/10/24 01:28: Vancomycin Trough 18.6 H 07/10/24 06:24: POC Glucose 246 H Micro: Microbiology 07/08/24 15:05 Wound - Left Foot Gram Stain - Final 07/08/24 15:05 Wound - Left Foot Wound Culture - Final Serratia marcescens 07/09/24 07:11 Wound - Left Foot Gram Stain - Final Radiography Diagnostic Testing: Radiology Impression Lower Extremity MRI 07/09/24 09:00 IMPRESSION: Osteomyelitis suspected of the fourth metatarsus and the proximal phalanx of fourth toe. Status post some dilatation of the fifth toe. Electronically Signed: Brandon Paul DO at 10:11 EST Reading Location ID and State: [facility] / [place] Tel [phone], Service support , Physical Exam Narrative General: Alert, Oriented x3, Cooperative, No apparent distress HEENT: Atraumatic, PERRLA, EOMI, Normocephalic Oral: Moist Mucosa Neck: Supple, No JVD Lungs: Clear to auscultation, Normal air movement, No rhonchi, No wheeze, No rales Cardiovascular: Regular rate, Regular Rhythm, Normal S1, Normal S2, No murmurs Abdomen: Soft, Non Tender, Non-Distended, No Hepato-splenomegaly Extremities: No edema, Capillary Refill Less than 3 Seconds Skin: Left foot wound no drainage but some mild erythema, dressing intact Musculoskeletal: No Tenderness to Palpation of Joints or Extremities Neurological: No focal neurological deficits, Motor Exam 5/5 strength throughout, Sensory exam intact to light touch and pain Psych/Mental Status: Normal Affect, Appropriate, anxious Assessment & Plan Assessment/Plan (1) Osteomyelitis: PLAN: Plan 1. Fourth metatarsal head osteomyelitis ? Will consult wound care and podiatry ? Continue with IV vancomycin and IV Zosyn ? Wound culture pending ? MRI with osteomyelitis however he does not want any further surgery amputation, will consult infectious disease for Friday for IV antibiotics ? Will place him on as needed Xanax to help control his anxiety 2. CAD status post CABG and stents/essential HTN/HLD ? Will continue with his home blood pressure medications ? Monitor make adjustments as necessary ? Will hold his Plavix pending possibility of surgery but continue with his aspirin ? Continue with Norvasc and metoprolol ? Continue with Lipitor 3. DM2 with neuropathy ? Will continue sliding scale insulin ? Will continue with 10 units of Lantus ? Monitor make adjustments as necessary ? Carb controlled diet ? Continue with gabapentin but will hold his home blood pressure medications DVT: Lovenox Charges/Coding Visit Charges Inpatient E&M: 69297 Subs Hosp L2
--- NOTE | 2024-07-10 09:41 | PCM.PROGNOTE ---
Subjective Subjective Patient was seen this morning, he relates he is feeling better. No new complaints. He is sitting up in bed. Objective Data Objective Data Vital Signs: Vital Signs Temp Pulse Resp BP Pulse Ox O2 Del Method 97.5 F L 90 18 137/95 H 94 Room Air 07/10/24 06:20 07/10/24 06:20 07/10/24 06:20 07/10/24 06:20 07/10/24 06:20 07/10/24 06:20 Oxygen Delivery Method Room Air Weight: 93.6 kg Body Mass Index (BMI) 31.4 Intake & Output: Intake and Output for Last 24 Hours 07/08/24 07/09/24 07/10/24 23:59 23:59 23:59 Intake Total 1240 / 1240 1175.75 / 1175.75 336.75 / 336.75 Output Total 300 / 300 350 / 350 100 / 100 Balance 940 / 940 825.75 / 825.75 236.75 / 236.75 Lab / Micro Data 07/09/24 06:27 07/09/24 06:27 Labs: Laboratory Results - last 24 hr 07/09/24 11:14: POC Glucose 297 H 07/09/24 16:21: POC Glucose 261 H 07/09/24 21:10: POC Glucose 208 H 07/10/24 01:28: Vancomycin Trough 18.6 H 07/10/24 06:24: POC Glucose 246 H Micro: Microbiology 07/08/24 15:05 Wound - Left Foot Gram Stain - Final 07/08/24 15:05 Wound - Left Foot Wound Culture - Final Serratia marcescens 07/09/24 07:11 Wound - Left Foot Gram Stain - Final Radiography Diagnostic Testing: Radiology Impression Lower Extremity MRI 07/09/24 09:00 IMPRESSION: Osteomyelitis suspected of the fourth metatarsus and the proximal phalanx of fourth toe. Status post some dilatation of the fifth toe. Electronically Signed: Brandon Paul DO at 10:11 EST , Physical Exam Const alert, oriented x3 and no apparent distress Constitutional Narrative: Left foot - stable wound to 5th ray amp site with erythema and edema noted to 4th toe to 4th MTPJ which is improving, normal temperature is present, no drainage, no fluctuance, no blistering, no necrosis, no crepitus, no streaking, no maloder is noted, no evidence of acute ischemia to left foot. Assessment & Plan Assessment/Plan (1) Cellulitis of left lower limb: (2) Acute osteomyelitis of toe of left foot: (3) Diabetes mellitus with diabetic polyneuropathy: (4) Other specified peripheral vascular diseases: PLAN: Plan Evaluation performed, reviewed diagnostic data. Reviewed new left foot xrays, there is destruction changes of the 4th metatarsal head and base of 4th toe proximal phalanx, no gas in the tissues. A culture was obtained of 5th ray amputation site - growing Serratia Macescens. Patient is on IV antibiotics, plan is for ID to be consulted. MRI left foot has been obtained and reviewed - there are findings c/w osteomyelitis 4th metatarsal distally and also to base of 4th toe proximal phalanx - discussed with patient - discussed possible amputation - discussed possible TMA as well to create more functional foot. He relates he would really like to avoid amputation - he relate he would like to proceed with nonsurgical management with wound care and antibiotics. Wound care: betadine solution topically with overlying gauze, kerlix and belem dressing. Heel weightbearing left foot for short distances only. PAD: patient follows with Dr. Dickens. Podiatry will continue to follow.
[2024-07-10] MEDS: DULoxetine Hcl 30 MG Capsule PO (10:45)
[2024-07-10] MEDS: Enoxaparin 40 MG/0.4 ML Syringe SC (10:45)
[2024-07-10] MEDS: amLODIPine 5 MG Tablet PO (10:45)
[2024-07-10] MEDS: Lisinopril 10 MG Tablet PO (10:45)
[2024-07-10] MEDS: Aspirin E.C. 81 MG Tablet PO (10:46)
[2024-07-10 10:50] VITALS: BP 120/72; PULSE 100; RESP 18; TEMP 36.6; O2SAT 93
[2024-07-10 10:50] LABS: Absolute Lymphocyte Count 1.41 X10^3/uL (0.83-4.51); Absolute Neutrophil Count 7.8 X10^3/uL (2.0-7.7); Basophil# 0.02 X10^3/uL; Basophil% 0.2 % (0-1); Eosinophil# 0.19 X10^3/uL; Eosinophils% 1.9 % (0-5); Hematocrit 35.2 % (40-54); Hemoglobin 11.9 g/dL (13.0-16.5); Lymphocyte # 1.41 X10^3/ul (0.83-4.51); Lymphocyte % 13.8 % (19-41); Mean Corp Hgb Conc 33.8 g/dL (32-36); Mean Corpuscular Hgb 27.5 pg (27.0-32.0); Mean Corpuscular Volume 81.5 fL (80-94); Mean Platelet Vol. 9.4 fl (6.2-12.0); Monocyte# 0.76 X10^3/uL; Monocyte% 7.4 % (0-10); NRBC Flagged by Analyzer 0 % (0-5); Neutrophil # 7.77 X10^3/uL (2.7-7.7); Neutrophil % 76.1 % (47-70); Platelet Count 289 K/mm3 (150-450); RBC Distribution Width CV 13.6 % (11.6-14.6); RBC Distribution Width SD 40.6 fl (35.1-43.9); Red Blood Count 4.32 M/mm3 (4.6-6.2); White Blood Count 10.2 K/mm3 (4.4-11.0)
[2024-07-10 10:56] LABS: Anion Gap 10 (5-15); BUN 24 mg/dL (7-18); BUN/Creat Ratio 10.2 RATIO (10-20); Calcium,Total 8.9 mg/dL (8.5-10.1); Chloride 95 mmol/L (98-107); Creatinine, Serum 2.35 mg/dL (0.70-1.30); EST Glomerular Filtration Rate 30 mL/min (>60); Est Glom Filt Rate - Afr Amer 36 mL/min (>60); Estimated Creatinine Clearance 34.79 ml/min; Glucose 320 mg/dL (74-106); Potassium 3.9 mmol/L (3.5-5.1); Sodium Level 131 mmol/L (136-145)
[2024-07-10] MEDS: oxyCODONE 5 MG Tablet 10 MG PO ×2 (13:07→21:12)
[2024-07-10 13:43] VITALS: BP 119/55; PULSE 104; RESP 16; TEMP 37; O2SAT 94
[2024-07-10] MEDS: 0.9% Saline Lock 10 ML Syringe IV ×2 (13:45→21:11)
[2024-07-10 16:07] VITALS: BP 130/99; PULSE 101; RESP 18; TEMP 37.1; O2SAT 92
[2024-07-10 16:29] LABS: Bedside Glucose 365 mg/dL (74-106)
[2024-07-10 16:29] LABS: Bedside Glucose 306 mg/dL (74-106)
[2024-07-10] MEDS: ALPRAZolam 0.5 MG Tablet PO (21:12)
[2024-07-10] MEDS: Atorvastatin Calcium 40 MG Tablet PO (21:13)
[2024-07-10] MEDS: Insulin Glargine-YFGN 100 UNIT/ML Pen 10 UNIT SC (21:15)
[2024-07-10 21:48] LABS: Bedside Glucose 332 mg/dL (74-106)
[2024-07-10 22:00] VITALS: BP 134/89; PULSE 92; RESP 18; TEMP 36.7; O2SAT 98
[2024-07-11 01:57] LABS: Vancomycin, Trough Level 24.2 ug/mL (5.0-15.0)
--- NOTE | 2024-07-11 02:14 | PCM.RX.CS ---
Consult Antibiotic Management Pharmacy has been consulted to manage selected antibiotic: Vancomycin Type of Intervention Type of Consult: Follow-up Labs Labs: Sodium 131 mmol/L (136-145) L 07/10/24 10:30 Potassium 3.9 mmol/L (3.5-5.1) 07/10/24 10:30 Chloride 95 mmol/L (98-107) L 07/10/24 10:30 Carbon Dioxide 26.0 mmol/L (21.0-32.0) 07/10/24 10:30 Anion Gap 10 (5-15) 07/10/24 10:30 BUN 24 mg/dL (7-18) H 07/10/24 10:30 Creatinine 2.35 mg/dL (0.70-1.30) H 07/10/24 10:30 Est GFR (MDRD) Af Amer 36 mL/min (>60) L 07/10/24 10:30 Est GFR (MDRD) Non-Af 30 mL/min (>60) L 07/10/24 10:30 BUN/Creatinine Ratio 10.2 RATIO (10-20) 07/10/24 10:30 Glucose 320 mg/dL (74-106) H 07/10/24 10:30 Vancomycin Trough 24.2 ug/mL (5.0-15.0) H 07/11/24 01:30 Microbiology Microbiology: Microbiology 07/08/24 15:05 Wound - Left Foot Gram Stain - Final 07/08/24 15:05 Wound - Left Foot Wound Culture - Final Serratia marcescens 07/08/24 15:05 Wound - Left Foot Anaerobic Culture - Preliminary Checking for anaerobes, further studies to follow. 07/08/24 10:23 Blood Culture (Wb) - Right Hand Blood Culture - Preliminary No growth in 48 hours. 07/08/24 10:35 Blood Culture (Wb) - Anticubital Left Blood Culture - Preliminary No growth in 48 hours. 07/09/24 07:11 Wound - Left Foot Gram Stain - Final 07/09/24 07:11 Wound - Left Foot Wound Culture - Preliminary Gram negative aidan Goal Trough Goal Trough: 15-20 mcg/mL Pharmacy Plan for Drug Dosing Pharmacy Plan for Drug Dosing: Pharmacy Service will continue to monitor and adjust dosing as required. TROUGH 24.2 @ 12 HOURS. HOLD DOSE AND DRAW RANDOM LEVEL IN 12 HOURS Follow-Up Labs Follow-Up Labs: Trough: Vancomycin Date/Time Labs Ordered Labs to be done on [date and time ordered]: 07/11 @ 1300
[2024-07-11] MEDS: oxyCODONE 5 MG Tablet 10 MG PO ×3 (04:18→21:12)
[2024-07-11] MEDS: Piperacil/Tazobactam 3.375 GM in 0.9% Normal Saline (50mL MB+) 50 ML IV ×3 (06:38→21:11)
[2024-07-11] MEDS: Gabapentin 300 MG Capsule PO ×3 (06:39→21:12)
[2024-07-11] MEDS: Insulin Lispro 100 UNIT/ML INSULN.PEN SC ×6 (06:42→21:18)
[2024-07-11 07:03] LABS: Bedside Glucose 257 mg/dL (74-106)
--- NOTE | 2024-07-11 08:41 | PN.HOSP_ITS ---
Subjective Subjective No issues overnight, doing well. White count stable, still wants conservative management Objective Data Objective Data Vital Signs: Vital Signs Temp Pulse Resp BP Pulse Ox O2 Del Method 98.0 F 92 18 134/89 H 98 Room Air 07/10/24 22:00 07/10/24 22:00 07/10/24 22:00 07/10/24 22:00 07/10/24 22:00 07/11/24 04:00 Oxygen Delivery Method Room Air Weight: 206 lb 5.643 oz Body Mass Index (BMI) 31.4 Intake & Output: Intake and Output for Last 24 Hours 07/10/24 07/11/24 07/12/24 03:59 03:59 03:59 Intake Total 1175.75 / 1175.75 916.75 / 916.75 Output Total 350 / 350 550 / 550 Balance 825.75 / 825.75 366.75 / 366.75 Lab / Micro Data 07/10/24 10:30 07/10/24 10:30 Labs: Laboratory Results - last 24 hr 07/10/24 10:30: WBC 10.2, RBC 4.32 L, Hgb 11.9 L, Hct 35.2 L, MCV 81.5, MCH 27.5, MCHC 33.8, RDW Std Deviation 40.6, RDW Coeff of Divya 13.6, Plt Count 289, MPV 9.4, Immature Gran % (Auto) 0.600, Neut % (Auto) 76.1 H, Lymph % (Auto) 13.8 L, [place] % (Auto) 7.4, Eos % (Auto) 1.9, Baso % (Auto) 0.2, Absolute Neuts (auto) 7.8 H, Absolute Lymphs (auto) 1.41, Nucleated RBC % 0, Sodium 131 L, Potassium 3.9, Chloride 95 L, Carbon Dioxide 26.0, Anion Gap 10, BUN 24 H, Creatinine 2.35 H, Estim Creat Clear Calc 34.79, Est GFR (MDRD) Af Amer 36 L, Est GFR (MDRD) Non-Af 30 L, BUN/Creatinine Ratio 10.2, Glucose 320 H, Calcium 8.9 07/10/24 11:13: POC Glucose 306 H 07/10/24 15:42: POC Glucose 365 H 07/10/24 21:14: POC Glucose 332 H 07/11/24 01:30: Vancomycin Trough 24.2 H 07/11/24 06:41: POC Glucose 257 H Micro: Microbiology 07/09/24 07:11 Wound - Left Foot Gram Stain - Final 07/09/24 07:11 Wound - Left Foot Wound Culture - Final Serratia marcescens 07/08/24 15:05 Wound - Left Foot Gram Stain - Final 07/08/24 15:05 Wound - Left Foot Wound Culture - Final Serratia marcescens 07/08/24 15:05 Wound - Left Foot Anaerobic Culture - Preliminary Checking for anaerobes, further studies to follow. 07/08/24 10:23 Blood Culture (Wb) - Right Hand Blood Culture - Preliminary No growth in 48 hours. 07/08/24 10:35 Blood Culture (Wb) - Anticubital Left Blood Culture - Preliminary No growth in 48 hours. Physical Exam Narrative General: Alert, Oriented x3, Cooperative, No apparent distress HEENT: Atraumatic, PERRLA, EOMI, Normocephalic Oral: Moist Mucosa Neck: Supple, No JVD Lungs: Clear to auscultation, Normal air movement, No rhonchi, No wheeze, No rales Cardiovascular: Regular rate, Regular Rhythm, Normal S1, Normal S2, No murmurs Abdomen: Soft, Non Tender, Non-Distended, No Hepato-splenomegaly Extremities: No edema, Capillary Refill Less than 3 Seconds Skin: Left foot wound no drainage but some mild erythema, dressing intact Musculoskeletal: No Tenderness to Palpation of Joints or Extremities Neurological: No focal neurological deficits, Motor Exam 5/5 strength throughout, Sensory exam intact to light touch and pain Psych/Mental Status: Normal Affect, Appropriate Assessment & Plan Assessment/Plan (1) Osteomyelitis: PLAN: Plan 1. Fourth metatarsal head osteomyelitis due to Serratia marcescens ? Will consult wound care and podiatry ?Continue with Zosyn ?Wound culture with Serratia ? MRI with osteomyelitis however he does not want any further surgery amputation, will consult infectious disease for Friday for IV antibiotics ? Will place him on as needed Xanax to help control his anxiety 2. CAD status post CABG and stents/essential HTN/HLD ? Will continue with his home blood pressure medications ? Monitor make adjustments as necessary ? Will hold his Plavix pending possibility of surgery but continue with his aspirin ? Continue with Norvasc and metoprolol ? Continue with Lipitor 3. DM2 with neuropathy ? Will continue sliding scale insulin ? Will continue with Lantus ? Monitor make adjustments as necessary ? Carb controlled diet ? Continue with gabapentin but will hold his home blood pressure medications DVT: Lovenox Charges/Coding Visit Charges Inpatient E&M: 58886 Subs Hosp L2
[2024-07-11] MEDS: amLODIPine 5 MG Tablet PO (08:47)
[2024-07-11] MEDS: Enoxaparin 40 MG/0.4 ML Syringe SC (08:47)
[2024-07-11] MEDS: Lisinopril 10 MG Tablet PO (08:47)
[2024-07-11] MEDS: DULoxetine Hcl 30 MG Capsule PO (08:47)
[2024-07-11] MEDS: Aspirin E.C. 81 MG Tablet PO (08:48)
[2024-07-11 09:00] VITALS: BP 134/73; PULSE 88; RESP 16; TEMP 36.6; O2SAT 93
[2024-07-11 11:45] LABS: Bedside Glucose 329 mg/dL (74-106)
[2024-07-11 15:00] VITALS: BP 145/86; PULSE 89; RESP 16; TEMP 36.4; O2SAT 97
[2024-07-11 16:49] LABS: Bedside Glucose 332 mg/dL (74-106)
[2024-07-11] MEDS: Atorvastatin Calcium 40 MG Tablet PO (21:12)
[2024-07-11] MEDS: Insulin Glargine-YFGN 100 UNIT/ML Pen 20 UNIT SC (21:17)
[2024-07-11 21:20] VITALS: BP 146/93; PULSE 94; RESP 18; TEMP 36.7; O2SAT 96
[2024-07-11 22:00] LABS: Bedside Glucose 323 mg/dL (74-106)
[2024-07-12 04:00] VITALS: BP 136/99; PULSE 86; RESP 18; TEMP 36.6; O2SAT 94
[2024-07-12] MEDS: Gabapentin 300 MG Capsule PO (05:36)
[2024-07-12] MEDS: Piperacil/Tazobactam 3.375 GM in 0.9% Normal Saline (50mL MB+) 50 ML IV (05:36)
[2024-07-12] MEDS: Insulin Lispro 100 UNIT/ML INSULN.PEN SC ×6 (06:30→21:19)
[2024-07-12 06:52] LABS: Bedside Glucose 267 mg/dL (74-106)
[2024-07-12 07:09] LABS: Absolute Lymphocyte Count 1.67 X10^3/uL (0.83-4.51); Absolute Neutrophil Count 8.1 X10^3/uL (2.0-7.7); Basophil# 0.03 X10^3/uL; Basophil% 0.3 % (0-1); Eosinophil# 0.32 X10^3/uL; Eosinophils% 2.9 % (0-5); Hematocrit 34.6 % (40-54); Hemoglobin 11.4 g/dL (13.0-16.5); Lymphocyte # 1.67 X10^3/ul (0.83-4.51); Lymphocyte % 15.2 % (19-41); Mean Corp Hgb Conc 32.9 g/dL (32-36); Mean Corpuscular Hgb 27.1 pg (27.0-32.0); Mean Corpuscular Volume 82.2 fL (80-94); Mean Platelet Vol. 9.3 fl (6.2-12.0); Monocyte# 0.76 X10^3/uL; Monocyte% 6.9 % (0-10); NRBC Flagged by Analyzer 0 % (0-5); Neutrophil # 8.11 X10^3/uL (2.7-7.7); Neutrophil % 73.9 % (47-70); Platelet Count 322 K/mm3 (150-450); RBC Distribution Width CV 13.7 % (11.6-14.6); RBC Distribution Width SD 40.5 fl (35.1-43.9); Red Blood Count 4.21 M/mm3 (4.6-6.2)
[2024-07-12 07:38] LABS: Anion Gap 12 (5-15); BUN 50 mg/dL (7-18); Calcium,Total 9.1 mg/dL (8.5-10.1); Chloride 95 mmol/L (98-107); Creatinine, Serum 3.58 mg/dL (0.70-1.30); EST Glomerular Filtration Rate 18 mL/min (>60); Est Glom Filt Rate - Afr Amer 22 mL/min (>60); Estimated Creatinine Clearance 22.84 ml/min; Glucose 273 mg/dL (74-106); Potassium 4.1 mmol/L (3.5-5.1); Sodium Level 129 mmol/L (136-145)
[2024-07-12 08:30] VITALS: BP 120/69; PULSE 82; RESP 16; TEMP 36.7; O2SAT 93
--- NOTE | 2024-07-12 09:01 | US_ITS ---
INDICATION: renay EXAMINATION: Ultrasound US Kidney(s) complete (eg, kidneys and bladder) TECHNIQUE: Yanez scale and color doppler images were obtained of the kidneys. COMPARISON: FINDINGS: RIGHT KIDNEY: 10.9 x 6.0 x 6.7 cm. The cortex is 13 mm. There is no hydronephrosis. No shadowing calculus, focal lesion or perinephric collection is demonstrated. LEFT KIDNEY: 11.2 x 5.5 x 6.1 cm. The cortex is 14 mm. There is no hydronephrosis. No shadowing calculus, focal lesion or perinephric collection is demonstrated. URINARY BLADDER: No acute abnormality. US/Kidney and Bladder IMPRESSION: Negative renal ultrasound. Electronically Signed: Brandon Paul DO at 17:59 EST Reading Location ID and State: [facility] / [place] Tel [phone], Service support ,
[2024-07-12] MEDS: DULoxetine Hcl 30 MG Capsule PO (10:54)
[2024-07-12] MEDS: Aspirin E.C. 81 MG Tablet PO (10:55)
[2024-07-12] MEDS: amLODIPine 5 MG Tablet PO (10:55)
[2024-07-12] MEDS: Enoxaparin 30 MG/0.3 ML Syringe SC (11:01)
[2024-07-12] MEDS: 0.9% Normal Saline (1000mL) 1,000 ML 100 ML IV ×2 (11:10→21:19)
[2024-07-12] MEDS: Cefepime HCl 1 GM in 0.9% Normal Saline (50mL MB+) 50 ML IV (11:32)
[2024-07-12 11:35] LABS: Bedside Glucose 233 mg/dL (74-106)
--- NOTE | 2024-07-12 13:13 | CASEMGMT ---
Solderer Dipper notified this RN CM that pt stated if they cut off his foot, he would kill himself. Updated SW. No plans of amputation at this time.
--- NOTE | 2024-07-12 14:23 | WOUNDNOTE ---
wound photo: left foot
--- NOTE | 2024-07-12 14:24 | WOUNDNOTE ---
wound photo: left foot
--- NOTE | 2024-07-12 14:35 | CON.PCM.ID_ITS ---
Assessment & Plan Assessment/Plan (1) Diabetes mellitus with diabetic polyneuropathy: (2) Foot osteomyelitis, left: PLAN: Complicated by GRZEGORZ. On vanc/zosyn, will stop vanc and adjust zosyn dose. Wound cx with devin. Will follow, thank you, d/w Dr. Caba HPI Consult Data Date of Consult: 07/12/24 HPI Narrative Reason for Consultation: osteo HPI Narrative: ROSETTA STEWART, is a 64 M with DM neuropathy, recurrent foot infection, presented with 1-2 weeks progressive L foot wound with mild pain, redness, drainage. No fever or chills. No known inciting event. Admitted 07/08, feeling a little better. Full ROS performed and neg except as noted above. [facility] Medical History Essential hypertension Atherosclerotic heart disease of [place] coronary artery without angina pectoris History of left heart catheterization (LHC) (~08/15/22) CAD (coronary artery disease) Hypertension History of coronary artery disease Cardiology follow-up encounter History of echocardiogram Open wound Uses crutches High cholesterol Dietary restriction Non-smoker Asthma Coronary artery disease 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 Diabetes mellitus with diabetic polyneuropathy Type 2 diabetes mellitus with foot ulcer Other specified peripheral vascular diseases Osteomyelitis PAD (peripheral artery disease) Delayed wound healing Hallux limitus of right foot Anxiety Depression Myocardial infarct Hallux limitus of right foot Type 2 diabetes mellitus with diabetic polyneuropathy Toe infection Heart disease HTN (hypertension) Diabetes mellitus CAD (coronary artery disease) DM2 (diabetes mellitus, type 2) Asthma Home Medications ?Medication ?Instructions ?Recorded ?Last Taken ?Type albuterol sulfate 90 mcg/actuation 1 - 2 puff inhalation Q4H PRN PRN 09/17/20 07/08/24 History aerosol inhaler Wheezing clopidogrel 75 mg tablet 75 mg PO DAILY bld thinner 09/17/20 07/08/24 History fluticasone propionate 50 2 puff IH DAILY breathing 09/17/20 04/29/24 History mcg/actuation blister powder for inhalation acetaminophen 500 mg tablet 1,000 mg PO Q6H PRN pain 08/29/22 07/08/24 History aspirin 81 mg tablet,delayed 81 mg PO DAILY thinner 08/29/22 07/08/24 History release (Adult Low Dose Aspirin) furosemide 20 mg tablet 20 mg PO DAILY . 08/29/22 07/08/24 History metoprolol tartrate 25 mg tablet 25 mg PO BID bp 08/29/22 Unknown History nitroglycerin 0.4 mg sublingual 0.4 mg sublingual Q5-15M PRN chest 08/29/22 Unknown History tablet pain amlodipine 5 mg tablet 5 mg PO DAILY BP 04/11/24 07/08/24 History duloxetine 20 mg capsule,delayed 30 mg PO DAILY depression 04/11/24 04/29/24 History release glimepiride 4 mg tablet 8 mg PO DAILY DM 04/11/24 07/08/24 History metformin 500 mg tablet,extended 1,000 mg PO BID DM 04/11/24 07/08/24 History release 24 hr lancets 32 gauge and blood glucose #300 ea 04/20/24 Unknown Rx strips kit oxycodone 5 mg tablet 10 mg (2 x 5 mg) PO Q4H PRN PRN 04/20/24 07/07/24 Rx Pain Score 1-10 4 days #30 tabs pen needle, diabetic 31 gauge x #100 ea 04/20/24 Unknown Rx 5/16 (BD Ultra-Fine Short Pen Needle) gabapentin 300 mg capsule 300 mg PO TID 07/08/24 07/08/24 History insulin glargine-yfgn 100 unit/mL 20 unit subcut DAILY 07/08/24 07/07/24 History (3 mL) subcutaneous pen Allergy/AdvReac Type Severity Reaction Status Date / Time No Known Allergies Allergy Verified 07/08/24 09:45 Family History Mother Diabetes Hypertension Father Diabetes Hypertension Surgical History History of coronary artery bypass graft x 3 (~08/21/22) Status post right foot surgery S/P peripheral artery angioplasty with stent placement (~07/25/21) History of coronary artery stent placement Social History household members: none Smoking Status: Never smoker alcohol intake: never substance use type: does not use Physical Exam Const alert, oriented x3 and no apparent distress General Appearance: cooperative HEENT normocephalic and head/scalp atraumatic Eyes PERRL and EOMs intact bilaterally Neck supple and No nodes Resp normal air movement and clear to auscultation bilaterally Cardio regular rate and regular rhythm GI soft to palpation, non-tender and non-distended Extremity General Extremity: edema Skin Skin Narrative: L foot wound Neuro CN's II-XII intact bilaterally Lab / Micro Data Attestation: I reviewed the patient's lab results. 07/12/24 06:33 07/12/24 06:33 Labs: Laboratory Results - last 24 hr 07/11/24 16:28: POC Glucose 332 H 07/11/24 21:16: POC Glucose 323 H 07/12/24 06:33: WBC 11.0, RBC 4.21 L, Hgb 11.4 L, Hct 34.6 L, MCV 82.2, MCH 27.1, MCHC 32.9, RDW Std Deviation 40.5, RDW Coeff of Divya 13.7, Plt Count 322, MPV 9.3, Immature Gran % (Auto) 0.800, Neut % (Auto) 73.9 H, Lymph % (Auto) 15.2 L, [place] % (Auto) 6.9, Eos % (Auto) 2.9, Baso % (Auto) 0.3, Absolute Neuts (auto) 8.1 H, Absolute Lymphs (auto) 1.67, Nucleated RBC % 0, Sodium 129 L, Potassium 4.1, Chloride 95 L, Carbon Dioxide 22.0, Anion Gap 12, BUN 50 H, Creatinine 3.58 H, Estim Creat Clear Calc 22.84, Est GFR (MDRD) Af Amer 22 L, Est GFR (MDRD) Non-Af 18 L, BUN/Creatinine Ratio 14.0, Glucose 273 H, Calcium 9.1, POC Glucose 267 H 07/12/24 11:16: POC Glucose 233 H Micro: Microbiology 07/08/24 15:05 Wound - Left Foot Gram Stain - Final 07/08/24 15:05 Wound - Left Foot Wound Culture - Final Serratia marcescens 07/08/24 15:05 Wound - Left Foot Anaerobic Culture - Final No anaerobic bacteria isolated.
[2024-07-12 14:38] VITALS: BP 150/79; PULSE 92; RESP 18; TEMP 36.2; O2SAT 93
--- NOTE | 2024-07-12 14:40 | PN.HOSP_ITS ---
Reason for Visit Reason for Visit: Diagnoses Type 2 diabetes mellitus with diabetic polyneuropathy (07/08/24) Other specified peripheral vascular diseases (07/08/24) Cellulitis of left lower limb (07/08/24) Other acute osteomyelitis, left ankle and foot (07/08/24) Osteomyelitis, unspecified (07/08/24) Objective Data Objective Data Vital Signs: Vital Signs Temp Pulse Resp BP Pulse Ox O2 Del Method 98.0 F 82 16 120/69 93 Room Air 07/12/24 08:30 07/12/24 08:30 07/12/24 08:30 07/12/24 08:30 07/12/24 08:30 07/12/24 08:30 Oxygen Delivery Method Room Air Weight: 206 lb 5.643 oz Body Mass Index (BMI) 31.4 Intake & Output: Intake and Output for Last 24 Hours 07/10/24 07/11/24 07/12/24 23:59 23:59 23:59 Intake Total 1116.75 / 1116.75 1100 / 1100 150 / 150 Output Total 550 / 550 Balance 566.75 / 566.75 1100 / 1100 150 / 150 Lab / Micro Data 07/12/24 06:33 07/12/24 06:33 Labs: Laboratory Results - last 24 hr 07/11/24 16:28: POC Glucose 332 H 07/11/24 21:16: POC Glucose 323 H 07/12/24 06:33: WBC 11.0, RBC 4.21 L, Hgb 11.4 L, Hct 34.6 L, MCV 82.2, MCH 27.1, MCHC 32.9, RDW Std Deviation 40.5, RDW Coeff of Divya 13.7, Plt Count 322, MPV 9.3, Immature Gran % (Auto) 0.800, Neut % (Auto) 73.9 H, Lymph % (Auto) 15.2 L, [place] % (Auto) 6.9, Eos % (Auto) 2.9, Baso % (Auto) 0.3, Absolute Neuts (auto) 8.1 H, Absolute Lymphs (auto) 1.67, Nucleated RBC % 0, Sodium 129 L, Potassium 4.1, Chloride 95 L, Carbon Dioxide 22.0, Anion Gap 12, BUN 50 H, Creatinine 3.58 H, Estim Creat Clear Calc 22.84, Est GFR (MDRD) Af Amer 22 L, Est GFR (MDRD) Non-Af 18 L, BUN/Creatinine Ratio 14.0, Glucose 273 H, Calcium 9.1, POC Glucose 267 H 07/12/24 11:16: POC Glucose 233 H Micro: Microbiology 07/08/24 15:05 Wound - Left Foot Gram Stain - Final 07/08/24 15:05 Wound - Left Foot Wound Culture - Final Serratia marcescens 07/08/24 15:05 Wound - Left Foot Anaerobic Culture - Final No anaerobic bacteria isolated. 07/09/24 07:11 Wound - Left Foot Gram Stain - Final 07/09/24 07:11 Wound - Left Foot Wound Culture - Final Serratia marcescens 07/08/24 10:23 Blood Culture (Wb) - Right Hand Blood Culture - Preliminary No growth in 48 hours. 07/08/24 10:35 Blood Culture (Wb) - Anticubital Left Blood Culture - Preliminary No growth in 48 hours. Physical Exam Narrative Seen and examined. Patient has left fourth toe osteomyelitis. 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 Wants to try IV antibiotic first in order to salvage TMA Physical exam General: Alert, Oriented x3, Cooperative HEENT: Atraumatic, PERRLA, EOMI, Normocephalic Oral: No Gingival or Mucosal Lesions/ Ulcerations Neck: Supple, No JVD, Negative Carotid Bruits Chest wall/Lungs: Air entry diminished in bilateral lung bases. No crepitation/rhonchi Cardiovascular: Regular rate, Regular Rhythm, Normal S1, Normal S2, No M/G/R. Status post CABG surgery Abdomen: Bowel Sounds Present, Soft, Non Tender, Non-Distended : No dysuria. No renal angle tenderness. No suprapubic tenderness. Extremities: No edema, Capillary Refill Less than 3 Seconds Skin: Romulo wrap bandage on left foot. Status post right foot surgery. Musculoskeletal: No Tenderness to Palpation of Joints or Extremities Neurological: Cranial nerves II-XII grossly intact, DTR 2+/4. No acute focal neurological deficit. Psych/Mental Status: Normal Affect, Appropriate. Assessment & Plan Assessment/Plan (1) Osteomyelitis: PLAN: Plan 1. Fourth metatarsal head osteomyelitis due to Serratia marcescens: Patient is being admitted in [facility] floor. MRI with osteomyelitis however he does not want any further surgery amputation ID was consulted. Patient increase in creatinine with Zosyn. Vancomycin discontinued. Changed to cefepime and Flagyl. on as needed Xanax to help control his anxiety 2. CAD status post CABG and stents/essential HTN/HLD ?l continue with his home blood pressure medications ? Monitor make adjustments as necessary ? Will hold his Plavix pending possibility of surgery but continue with his aspirin ? Continue with Norvasc and metoprolol ? Continue with Lipitor 3. GRZEGORZ: Patient creatinine increased from 2.35-3.5. Hyponatremia, sodium 129. Potassium normal. EKG 12 with bicarb 22. Engineering Production Liaison consulted. Possible due to IV antibiotics vancomycin and Zosyn. Engineering Production Liaison consulted. 4. DM2 with neuropathy ? continue sliding scale insulin ? continue with Lantus ? Monitor make adjustments as necessary ? Carb controlled diet ? Continue with gabapentin but will hold his home blood pressure medications DVT: Lovenox Charges/Coding Visit Charges Inpatient E&M: 52279 Subs Hosp L2
[2024-07-12] MEDS: metroNIDAZOLE 500 MG Tablet PO ×2 (14:44→21:18)
[2024-07-12] MEDS: Gabapentin 100 MG Capsule PO ×2 (14:48→21:18)
[2024-07-12] MEDS: Insulin Lispro 100 UNIT/ML INSULN.PEN 10 UNIT SC (16:33)
[2024-07-12 16:48] LABS: Bedside Glucose 264 mg/dL (74-106)
--- NOTE | 2024-07-12 16:53 | PCM.PROGNOTE ---
Subjective Subjective Patient was seen today for follow up on his left foot. He relates he is really depressed, relates he is worried he is going to lose his foot, relates he cannot live with losing all of his toes. His mother is bedside, she relates he is mean to her at times. He is not adherent with good diabetic diet, he relates he binges. He understands this can result in further diabetic complications including nonhealing and need for further amputation. Objective Data Objective Data Vital Signs: Vital Signs Temp Pulse Resp BP Pulse Ox O2 Del Method 97.2 F L 92 18 150/79 H 93 Room Air 07/12/24 14:38 07/12/24 14:38 07/12/24 14:38 07/12/24 14:38 07/12/24 14:38 07/12/24 14:38 Oxygen Delivery Method Room Air Weight: 93.6 kg Body Mass Index (BMI) 31.4 Intake & Output: Intake and Output for Last 24 Hours 07/10/24 07/11/24 07/12/24 23:59 23:59 23:59 Intake Total 1116.75 / 1116.75 1100 / 1100 150 / 150 Output Total 550 / 550 Balance 566.75 / 566.75 1100 / 1100 150 / 150 Lab / Micro Data 07/12/24 06:33 07/12/24 06:33 Labs: Laboratory Results - last 24 hr 07/11/24 21:16: POC Glucose 323 H 07/12/24 06:33: WBC 11.0, RBC 4.21 L, Hgb 11.4 L, Hct 34.6 L, MCV 82.2, MCH 27.1, MCHC 32.9, RDW Std Deviation 40.5, RDW Coeff of Divya 13.7, Plt Count 322, MPV 9.3, Immature Gran % (Auto) 0.800, Neut % (Auto) 73.9 H, Lymph % (Auto) 15.2 L, [place] % (Auto) 6.9, Eos % (Auto) 2.9, Baso % (Auto) 0.3, Absolute Neuts (auto) 8.1 H, Absolute Lymphs (auto) 1.67, Nucleated RBC % 0, Sodium 129 L, Potassium 4.1, Chloride 95 L, Carbon Dioxide 22.0, Anion Gap 12, BUN 50 H, Creatinine 3.58 H, Estim Creat Clear Calc 22.84, Est GFR (MDRD) Af Amer 22 L, Est GFR (MDRD) Non-Af 18 L, BUN/Creatinine Ratio 14.0, Glucose 273 H, Calcium 9.1, POC Glucose 267 H 07/12/24 11:16: POC Glucose 233 H 07/12/24 16:29: POC Glucose 264 H Micro: Microbiology 07/08/24 15:05 Wound - Left Foot Gram Stain - Final 07/08/24 15:05 Wound - Left Foot Wound Culture - Final Serratia marcescens 07/08/24 15:05 Wound - Left Foot Anaerobic Culture - Final No anaerobic bacteria isolated. 07/09/24 07:11 Wound - Left Foot Gram Stain - Final 07/09/24 07:11 Wound - Left Foot Wound Culture - Final Serratia marcescens 07/08/24 10:23 Blood Culture (Wb) - Right Hand Blood Culture - Preliminary No growth in 48 hours. 07/08/24 10:35 Blood Culture (Wb) - Anticubital Left Blood Culture - Preliminary No growth in 48 hours. Physical Exam Const alert, oriented x3 and no apparent distress Constitutional Narrative: Left foot - stable wound to 5th ray amp site with stable erythema and edema noted to 4th toe to 4th MTPJ which appears same since last exam, normal temperature is present, no drainage, no fluctuance, no blistering, no necrosis, no crepitus, no streaking, no maloder is noted, no evidence of acute ischemia to left foot. Assessment & Plan Assessment/Plan (1) Cellulitis of left lower limb: (2) Acute osteomyelitis of toe of left foot: (3) Diabetes mellitus with diabetic polyneuropathy: (4) Other specified peripheral vascular diseases: PLAN: Plan Evaluation performed, reviewed diagnostic data. Reviewed new left foot xrays, there is destruction changes of the 4th metatarsal head and base of 4th toe proximal phalanx, no gas in the tissues. A culture was obtained of 5th ray amputation site - growing Serratia Macescens. Patient is on IV antibiotics, ID has been consulted. MRI left foot has been obtained and reviewed - there are findings c/w osteomyelitis 4th metatarsal distally and also to base of 4th toe proximal phalanx - discussed with patient - discussed possible amputation - discussed possible TMA as well to create more functional foot. He relates he would really like to avoid amputation - he relate he would like to proceed with nonsurgical management with wound care and antibiotics. Discussed possible I+D pending further erythema and edema over 4th MTPJ. Will re-evaluate tomorrow. Wound care: betadine solution topically with overlying gauze, kerlix and belem dressing. Heel weightbearing left foot for short distances only. PAD: patient follows with Dr. Dickens who is on consult. Discussed with Dr. Breen and Dr. Pollock. Podiatry will continue to follow.
--- NOTE | 2024-07-12 17:55 | PCM.CONS.R ---
Assessment & Plan Assessment/Plan (1) GRZEGORZ (acute kidney injury): PLAN: Baseline creatinine around 1.1. Creatinine was close to baseline about 2 days ago. Progressive increase in creatinine over the last 2 days. Voiding without any problems. Denies any suprapubic pain. On examination not much fullness in suprapubic area. Will check urine analysis, urine lites, renal ultrasound. No contrast studies He had vancomycin, there was 1 level of 24 which was not too bad IV fluids for today dw family at bedside HPI Consult Data Date of Consult: 07/12/24 HPI Narrative Reason for Consultation: grzegorz HPI Narrative: ROSETTA STEWART, is a 64 M who presents To the hospital with osteomyelitis of the fourth toe. Nephrology on consultation in view of acute renal failure. History of poorly controlled diabetes, most recent HbA1c more than 9. Presented with osteomyelitis. Surgery was recommended, for now conservative therapy only. Creatinine up to 3.5 today. Creatinine was 1.3 on admission, next day 1.1, progressive increase over the last 2 days. Denies any urinary complaints. He says he is making urine, voiding without any issues. Does not think he is retaining. For antibiotics he was on vancomycin. There was 1 level of 24 yesterday. [facility] Medical History Essential hypertension Atherosclerotic heart disease of [place] coronary artery without angina pectoris History of left heart catheterization (LHC) (~08/15/22) CAD (coronary artery disease) Hypertension History of coronary artery disease Cardiology follow-up encounter History of echocardiogram Open wound Uses crutches High cholesterol Dietary restriction Non-smoker Asthma Coronary artery disease 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 Diabetes mellitus with diabetic polyneuropathy Type 2 diabetes mellitus with foot ulcer Other specified peripheral vascular diseases Osteomyelitis PAD (peripheral artery disease) Delayed wound healing Hallux limitus of right foot Anxiety Depression Myocardial infarct Hallux limitus of right foot Type 2 diabetes mellitus with diabetic polyneuropathy Toe infection Heart disease HTN (hypertension) Diabetes mellitus CAD (coronary artery disease) DM2 (diabetes mellitus, type 2) Asthma Home Medications ?Medication ?Instructions ?Recorded ?Last Taken ?Type albuterol sulfate 90 mcg/actuation 1 - 2 puff inhalation Q4H PRN PRN 09/17/20 07/08/24 History aerosol inhaler Wheezing clopidogrel 75 mg tablet 75 mg PO DAILY bld thinner 09/17/20 07/08/24 History fluticasone propionate 50 2 puff IH DAILY breathing 09/17/20 04/29/24 History mcg/actuation blister powder for inhalation acetaminophen 500 mg tablet 1,000 mg PO Q6H PRN pain 08/29/22 07/08/24 History aspirin 81 mg tablet,delayed 81 mg PO DAILY thinner 08/29/22 07/08/24 History release (Adult Low Dose Aspirin) furosemide 20 mg tablet 20 mg PO DAILY . 08/29/22 07/08/24 History metoprolol tartrate 25 mg tablet 25 mg PO BID bp 08/29/22 Unknown History nitroglycerin 0.4 mg sublingual 0.4 mg sublingual Q5-15M PRN chest 08/29/22 Unknown History tablet pain amlodipine 5 mg tablet 5 mg PO DAILY BP 04/11/24 07/08/24 History duloxetine 20 mg capsule,delayed 30 mg PO DAILY depression 04/11/24 04/29/24 History release glimepiride 4 mg tablet 8 mg PO DAILY DM 04/11/24 07/08/24 History metformin 500 mg tablet,extended 1,000 mg PO BID DM 04/11/24 07/08/24 History release 24 hr lancets 32 gauge and blood glucose #300 ea 04/20/24 Unknown Rx strips kit oxycodone 5 mg tablet 10 mg (2 x 5 mg) PO Q4H PRN PRN 04/20/24 07/07/24 Rx Pain Score 1-10 4 days #30 tabs pen needle, diabetic 31 gauge x #100 ea 04/20/24 Unknown Rx 5/16 (BD Ultra-Fine Short Pen Needle) gabapentin 300 mg capsule 300 mg PO TID 07/08/24 07/08/24 History insulin glargine-yfgn 100 unit/mL 20 unit subcut DAILY 07/08/24 07/07/24 History (3 mL) subcutaneous pen Allergy/AdvReac Type Severity Reaction Status Date / Time No Known Allergies Allergy Verified 07/08/24 09:45 Family History Mother Diabetes Hypertension Father Diabetes Hypertension Surgical History History of coronary artery bypass graft x 3 (~08/21/22) Status post right foot surgery S/P peripheral artery angioplasty with stent placement (~07/25/21) History of coronary artery stent placement Social History household members: none Smoking Status: Never smoker alcohol intake: never substance use type: does not use ROS ROS Narrative negative except above Physical Exam Narrative Alert awake oriented x 3 no obvious distress no pallor no icterus no JVD s1s2 no murmurs lungs clear abdomen soft no organomegaly no edema no cyanosis Lab / Micro Data 07/12/24 06:33 07/12/24 06:33 Labs: Laboratory Results - last 24 hr 07/11/24 21:16: POC Glucose 323 H 07/12/24 06:33: WBC 11.0, RBC 4.21 L, Hgb 11.4 L, Hct 34.6 L, MCV 82.2, MCH 27.1, MCHC 32.9, RDW Std Deviation 40.5, RDW Coeff of Divya 13.7, Plt Count 322, MPV 9.3, Immature Gran % (Auto) 0.800, Neut % (Auto) 73.9 H, Lymph % (Auto) 15.2 L, [place] % (Auto) 6.9, Eos % (Auto) 2.9, Baso % (Auto) 0.3, Absolute Neuts (auto) 8.1 H, Absolute Lymphs (auto) 1.67, Nucleated RBC % 0, Sodium 129 L, Potassium 4.1, Chloride 95 L, Carbon Dioxide 22.0, Anion Gap 12, BUN 50 H, Creatinine 3.58 H, Estim Creat Clear Calc 22.84, Est GFR (MDRD) Af Amer 22 L, Est GFR (MDRD) Non-Af 18 L, BUN/Creatinine Ratio 14.0, Glucose 273 H, Calcium 9.1, POC Glucose 267 H 07/12/24 11:16: POC Glucose 233 H 07/12/24 16:29: POC Glucose 264 H Micro: Microbiology 07/08/24 15:05 Wound - Left Foot Gram Stain - Final 07/08/24 15:05 Wound - Left Foot Wound Culture - Final Serratia marcescens 07/08/24 15:05 Wound - Left Foot Anaerobic Culture - Final No anaerobic bacteria isolated.
[2024-07-12 18:57] LABS: Mucous, Urine 0 SEEN /hpf (<or=2+); Squamous Epithelial Cells - UA 0 SEEN /hpf (0-5)
[2024-07-12 19:05] LABS: Color, Urine Yellow (Yellow); Glucose, Dipstick 250 mg/dl (Normal); Ketone-Dipstick Negative (Negative); Leukocyte Esterase-Dipstick Negative /ul (Negative); Nitrite-Dipstick Negative (Negative); Occult Blood-Urine 10 /ul (Negative); Protein-Dipstick 30 mg/dl (Negative); Specific Gravity, Urine 1.015 (1.002-1.030); Urine Bilirubin Dipstick Negative (Negative); Urine Clarity Clear (Clear); Urine Urobilinogen Normal (Normal)
[2024-07-12 19:27] LABS: Urine Sodium 24 mmol/L (Not Establ.)
[2024-07-12 19:37] LABS: Bacteria 1+ /hpf (None Seen); Red Blood Cells-Urine 0-5 SEEN /hpf (0-5); White Blood Cells 0-5 SEEN /hpf (0-5)
[2024-07-12] MEDS: QUEtiapine 25 MG Tablet 50 MG PO (21:18)
[2024-07-12] MEDS: Insulin Glargine-YFGN 100 UNIT/ML Pen 25 UNIT SC (21:22)
[2024-07-12] MEDS: Atorvastatin Calcium 40 MG Tablet PO (21:23)
[2024-07-12 21:26] VITALS: BP 127/82; PULSE 88; RESP 18; TEMP 37.1; O2SAT 97
[2024-07-12 23:32] LABS: Bedside Glucose 218 mg/dL (74-106)
[2024-07-13 06:00] VITALS: BP 127/55; PULSE 75; RESP 18; TEMP 36.4; O2SAT 95
[2024-07-13] MEDS: metroNIDAZOLE 500 MG Tablet PO ×3 (06:23→20:26)
[2024-07-13] MEDS: Insulin Lispro 100 UNIT/ML INSULN.PEN SC ×4 (06:25→20:26)
[2024-07-13] MEDS: Insulin Lispro 100 UNIT/ML INSULN.PEN 10 UNIT SC ×3 (06:26→17:00)
[2024-07-13 06:45] LABS: Bedside Glucose 208 mg/dL (74-106)
[2024-07-13 06:59] LABS: Absolute Lymphocyte Count 1.02 X10^3/uL (0.83-4.51); Absolute Neutrophil Count 4.9 X10^3/uL (2.0-7.7); Basophil# 0.01 X10^3/uL; Basophil% 0.1 % (0-1); Hematocrit 30.8 % (40-54); Hemoglobin 9.9 g/dL (13.0-16.5); Lymphocyte # 1.02 X10^3/ul (0.83-4.51); Lymphocyte % 15.2 % (19-41); Mean Corp Hgb Conc 32.1 g/dL (32-36); Mean Corpuscular Hgb 26.7 pg (27.0-32.0); Mean Platelet Vol. 9.3 fl (6.2-12.0); Monocyte# 0.56 X10^3/uL; Monocyte% 8.3 % (0-10); NRBC Flagged by Analyzer 0 % (0-5); Neutrophil # 4.86 X10^3/uL (2.7-7.7); Neutrophil % 72.5 % (47-70); Platelet Count 253 K/mm3 (150-450); RBC Distribution Width CV 13.7 % (11.6-14.6); RBC Distribution Width SD 40.6 fl (35.1-43.9); Red Blood Count 3.71 M/mm3 (4.6-6.2); White Blood Count 6.7 K/mm3 (4.4-11.0)
--- NOTE | 2024-07-13 07:56 | PCM.PN.SRG ---
Subjective Subjective Patient was seen this morning for follow up left foot. He is resting comfortably in bed, no new complaints. Objective Data Objective Data Vital Signs: Vital Signs Temp Pulse Resp BP Pulse Ox O2 Del Method 97.6 F L 75 18 127/55 H 95 Room Air 07/13/24 06:00 07/13/24 06:00 07/13/24 06:00 07/13/24 06:00 07/13/24 06:00 07/13/24 06:00 Oxygen Delivery Method Room Air Weight: 93.6 kg Body Mass Index (BMI) 31.4 Intake & Output: Intake and Output for Last 24 Hours 07/11/24 07/12/24 07/13/24 23:59 23:59 23:59 Intake Total 1100 / 1100 1150 / 1150 Output Total 400 / 400 Balance 1100 / 1100 1150 / 1150 -400 / -400 Lab / Micro Data 07/13/24 06:14 07/13/24 06:14 Labs: Laboratory Results - last 24 hr 07/12/24 11:16: POC Glucose 233 H 07/12/24 16:29: POC Glucose 264 H 07/12/24 18:50: Urine Color Yellow, Urine Clarity Clear, Urine pH 5.0, Ur Specific [place] 1.015, Urine Protein 30 H, Urine Glucose (UA) 250 H, Urine Ketones Negative, Urine Occult Blood 10 H, Urine Nitrite Negative, Urine Bilirubin Negative, Urine Urobilinogen Normal, Ur Leukocyte Esterase Negative, Urine RBC 0-5 SEEN, Urine WBC 0-5 SEEN, Ur Squamous Epith Cells 0 SEEN, Urine Bacteria 1+, Urine Mucus 0 SEEN, Ur Random Sodium 24, Urine Creatinine 85.70 07/12/24 21:17: POC Glucose 218 H 07/13/24 06:14: WBC 6.7, RBC 3.71 L, Hgb 9.9 L, Hct 30.8 L, MCV 83.0, MCH 26.7 L, MCHC 32.1, RDW Std Deviation 40.6, RDW Coeff of Divya 13.7, Plt Count 253, MPV 9.3, Immature Gran % (Auto) 0.900, Neut % (Auto) 72.5 H, Lymph % (Auto) 15.2 L, [place] % (Auto) 8.3, Eos % (Auto) 3.0, Baso % (Auto) 0.1, Absolute Neuts (auto) 4.9, Absolute Lymphs (auto) 1.02, Nucleated RBC % 0 07/13/24 06:20: POC Glucose 208 H Micro: Microbiology 07/08/24 10:23 Blood Culture (Wb) - Right Hand Blood Culture - Final No growth in 5 days. 07/08/24 10:35 Blood Culture (Wb) - Anticubital Left Blood Culture - Final No growth in 5 days. 07/08/24 15:05 Wound - Left Foot Gram Stain - Final 07/08/24 15:05 Wound - Left Foot Wound Culture - Final Serratia marcescens 07/08/24 15:05 Wound - Left Foot Anaerobic Culture - Final No anaerobic bacteria isolated. 07/09/24 07:11 Wound - Left Foot Gram Stain - Final 07/09/24 07:11 Wound - Left Foot Wound Culture - Final Serratia marcescens Radiography Diagnostic Testing: Radiology Impression Renal Ultrasound 07/12/24 09:01 IMPRESSION: Negative renal ultrasound. Electronically Signed: Brandon Paul DO at 17:59 EST Reading Location ID and State: [facility] / [place] Tel [phone], Service support , Physical Exam Const alert, oriented x3 and no apparent distress Constitutional Narrative: Left foot - stable wound to 5th ray amp site, there is erythema and edema noted to dorsal 4th toe to 4th MTPJ which remains same since last exam, there is what appears to be a small abscess localized to dorsal 4th MTPJ, normal temperature is present, no drainage, no fluctuance, no blistering, no necrosis, no crepitus, no streaking, no maloder is noted, no evidence of acute ischemia to left foot. Assessment & Plan Assessment/Plan (1) Cellulitis of left lower limb: (2) Acute osteomyelitis of toe of left foot: (3) Diabetes mellitus with diabetic polyneuropathy: (4) Other specified peripheral vascular diseases: PLAN: Plan Evaluation performed, reviewed diagnostic data. Reviewed new left foot xrays, there is destruction changes of the 4th metatarsal head and base of 4th toe proximal phalanx, no gas in the tissues. MRI left foot has been obtained and reviewed - there are findings c/w osteomyelitis 4th metatarsal distally and also to base of 4th toe proximal phalanx - discussed with patient - discussed possible amputation - discussed possible TMA as well to create more functional foot. He relates he would really like to avoid amputation - he relate he would like to proceed with nonsurgical management with wound care and antibiotics. Discussed possible I+D pending further erythema and edema over 4th MTPJ. Will re-evaluate tomorrow. A culture was obtained of 5th ray amputation site - growing Serratia Macescens. Patient is on IV antibiotics, ID following. nephrology also following for GRZEGORZ. Given concern for abscess dorsal left 4th MTPJ discussed I+D to site with patient - reviewed procedure and he agreed, consent form was reviewed with him and he freely signed it. This was completed today as noted below. A new culture was obtained from site and sent to microbiology. Wound care: betadine solution topically with overlying gauze, kerlix and belem dressing. Heel weightbearing left foot for short distances only. PAD: patient follows with Dr. Dickens who is on consult. Podiatry will continue to follow. Incision and drainage left foot - discussed with patient, reviewed rationale of procedure, possible benefits vs risks, goals, expectations as well. Advised him the risks include but not limited to pain, bleeding, need for further procedures, nonhealing, loss of limb, loss of life. The consent form was reviewed with him and he freely signed it. He expressed understanding and agreement and he was able to repeat back. After consent was obtained the left forefoot was cleansed with 70% Isopropyl alcohol, no anesthesia was needed due to patient's peripheral neuropathy. A 15 blade was used making an incision dorsal 4th MTPJ to subcutaneous tissue - there was drainage consistent with infection, was more serous, the site was drained of the fluid, the loculations of the abscess were broken up down to 4th MTPJ capsule with a hemostat, a deep culture was obtained using a swab of the site. The site was packed with gauze and a dressing was applied consisting of 4x4 gauze, kerlix and belem dressing. He tolerated well with no complications. He was resting in bed for the procedure.
[2024-07-13 08:00] LABS: Anion Gap 6 (5-15); BUN 43 mg/dL (7-18); BUN/Creat Ratio 17.1 RATIO (10-20); Calcium,Total 8.9 mg/dL (8.5-10.1); Chloride 105 mmol/L (98-107); Creatinine, Serum 2.51 mg/dL (0.70-1.30); EST Glomerular Filtration Rate 28 mL/min (>60); Est Glom Filt Rate - Afr Amer 33 mL/min (>60); Estimated Creatinine Clearance 32.57 ml/min; Glucose 219 mg/dL (74-106); Potassium 3.9 mmol/L (3.5-5.1); Sodium Level 136 mmol/L (136-145)
[2024-07-13] MEDS: Cefepime HCl 1 GM in 0.9% Normal Saline (50mL MB+) 50 ML IV ×2 (10:03→20:27)
[2024-07-13 10:07] VITALS: BP 157/89; PULSE 83; RESP 16; TEMP 36.6; O2SAT 98
[2024-07-13] MEDS: DULoxetine Hcl 30 MG Capsule PO (10:14)
[2024-07-13] MEDS: amLODIPine 5 MG Tablet PO (10:14)
[2024-07-13] MEDS: Aspirin E.C. 81 MG Tablet PO (10:15)
[2024-07-13] MEDS: Enoxaparin 40 MG/0.4 ML Syringe SC (10:15)
[2024-07-13] MEDS: Clopidogrel Bisulfate 75 MG Tablet PO (10:18)
--- NOTE | 2024-07-13 10:35 | PCM.PN.ID ---
Physical Exam Narrative Feeling ok, pain controlled, no fever, no n/v/d. Const alert and no apparent distress General Appearance: cooperative Resp normal air movement and clear to auscultation bilaterally Cardio regular rate and regular rhythm GI soft to palpation, non-tender and non-distended Skin Skin Narrative: foot wrapped ID ID: Route of nutrition/ use of supplements: [] Nutritional Intake: [] IV Site: [] Hawley Catheter: [] Assessment & Plan Assessment/Plan (1) Diabetes mellitus with diabetic polyneuropathy: (2) Foot osteomyelitis, left: PLAN: Complicated by GRZEGORZ. On cefepime/flagyl. GRZEGORZ improved. Wound cx with serratia. Will follow
[2024-07-13] MEDS: oxyCODONE 5 MG Tablet 10 MG PO (11:29)
[2024-07-13 11:50] LABS: Bedside Glucose 168 mg/dL (74-106)
--- NOTE | 2024-07-13 12:48 | PCM.PN.HOSP ---
Reason for Visit Reason for Visit: Diagnoses Type 2 diabetes mellitus with diabetic polyneuropathy (07/08/24) Other specified peripheral vascular diseases (07/08/24) Cellulitis of left lower limb (07/08/24) Other acute osteomyelitis, left ankle and foot (07/08/24) Osteomyelitis, unspecified (07/08/24) Acute kidney failure, unspecified (07/08/24) Objective Data Objective Data Vital Signs: Vital Signs Temp Pulse Resp BP Pulse Ox O2 Del Method 97.9 F 83 16 157/89 H 98 Room Air 07/13/24 10:07 07/13/24 10:07 07/13/24 10:07 07/13/24 10:07 07/13/24 10:07 07/13/24 10:07 Oxygen Delivery Method Room Air Weight: 206 lb 5.643 oz Body Mass Index (BMI) 31.4 Intake & Output: Intake and Output for Last 24 Hours 07/11/24 07/12/24 07/13/24 23:59 23:59 23:59 Intake Total 1100 / 1100 1150 / 1150 50 / 50 Output Total 400 / 400 Balance 1100 / 1100 1150 / 1150 -350 / -350 Lab / Micro Data 07/13/24 06:14 07/13/24 06:14 Labs: Laboratory Results - last 24 hr 07/12/24 16:29: POC Glucose 264 H 07/12/24 18:50: Urine Color Yellow, Urine Clarity Clear, Urine pH 5.0, Ur Specific [place] 1.015, Urine Protein 30 H, Urine Glucose (UA) 250 H, Urine Ketones Negative, Urine Occult Blood 10 H, Urine Nitrite Negative, Urine Bilirubin Negative, Urine Urobilinogen Normal, Ur Leukocyte Esterase Negative, Urine RBC 0-5 SEEN, Urine WBC 0-5 SEEN, Ur Squamous Epith Cells 0 SEEN, Urine Bacteria 1+, Urine Mucus 0 SEEN, Ur Random Sodium 24, Urine Creatinine 85.70 07/12/24 21:17: POC Glucose 218 H 07/13/24 06:14: WBC 6.7, RBC 3.71 L, Hgb 9.9 L, Hct 30.8 L, MCV 83.0, MCH 26.7 L, MCHC 32.1, RDW Std Deviation 40.6, RDW Coeff of Divya 13.7, Plt Count 253, MPV 9.3, Immature Gran % (Auto) 0.900, Neut % (Auto) 72.5 H, Lymph % (Auto) 15.2 L, [place] % (Auto) 8.3, Eos % (Auto) 3.0, Baso % (Auto) 0.1, Absolute Neuts (auto) 4.9, Absolute Lymphs (auto) 1.02, Nucleated RBC % 0, Sodium 136, Potassium 3.9, Chloride 105, Carbon Dioxide 25.0, Anion Gap 6, BUN 43 H, Creatinine 2.51 H, Estim Creat Clear Calc 32.57, Est GFR (MDRD) Af Amer 33 L, Est GFR (MDRD) Non-Af 28 L, BUN/Creatinine Ratio 17.1, Glucose 219 H, Calcium 8.9 07/13/24 06:20: POC Glucose 208 H 07/13/24 11:26: POC Glucose 168 H Micro: Microbiology 07/08/24 10:23 Blood Culture (Wb) - Right Hand Blood Culture - Final No growth in 5 days. 07/08/24 10:35 Blood Culture (Wb) - Anticubital Left Blood Culture - Final No growth in 5 days. 07/08/24 15:05 Wound - Left Foot Gram Stain - Final 07/08/24 15:05 Wound - Left Foot Wound Culture - Final Serratia marcescens 07/08/24 15:05 Wound - Left Foot Anaerobic Culture - Final No anaerobic bacteria isolated. 07/09/24 07:11 Wound - Left Foot Gram Stain - Final 07/09/24 07:11 Wound - Left Foot Wound Culture - Final Serratia marcescens Radiography Diagnostic Testing: Radiology Impression Renal Ultrasound 07/12/24 09:01 IMPRESSION: Negative renal ultrasound. Electronically Signed: Brandon Paul DO at 17:59 EST Reading Location ID and State: [facility] / [place] Tel [phone], Service support , Physical Exam Narrative Seen and examined. Patient is anxious and depressed. Discussed with Dr. Caba and ID Patient has left fourth toe osteomyelitis. 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 Wants to try IV antibiotic first in order to salvage TMA Physical exam General: Alert, Oriented x3, Cooperative HEENT: Atraumatic, PERRLA, EOMI, Normocephalic Oral: No Gingival or Mucosal Lesions/ Ulcerations Neck: Supple, No JVD, Negative Carotid Bruits Chest wall/Lungs: Air entry diminished in bilateral lung bases. No crepitation/rhonchi Cardiovascular: Regular rate, Regular Rhythm, Normal S1, Normal S2, No M/G/R. Status post CABG surgery Abdomen: Bowel Sounds Present, Soft, Non Tender, Non-Distended : No dysuria. No renal angle tenderness. No suprapubic tenderness. Extremities: No edema, Capillary Refill Less than 3 Seconds Skin: Romulo wrap bandage on left foot. Status post right foot surgery. Musculoskeletal: No Tenderness to Palpation of Joints or Extremities Neurological: Cranial nerves II-XII grossly intact, DTR 2+/4. No acute focal neurological deficit. Psych/Mental Status: Normal Affect, Appropriate. Assessment & Plan Assessment/Plan (1) Osteomyelitis: PLAN: Plan 1. Fourth metatarsal head osteomyelitis due to Serratia marcescens: Patient is being admitted in [facility] floor. MRI with osteomyelitis however he does not want any further surgery amputation ID was consulted. Patient increase in creatinine with Zosyn. Vancomycin and Zosyn discontinued. Changed to cefepime and Flagyl. on as needed Xanax to help control his anxiety /3: Continue antibiotic 2. CAD status post CABG and stents/essential HTN/HLD ?l continue with his home blood pressure medications ? Monitor make adjustments as necessary ? Will hold his Plavix pending possibility of surgery but continue with his aspirin ? Continue with Norvasc and metoprolol ? Continue with Lipitor 3. GRZEGORZ: Patient creatinine increased from 2.35-3.5. Hyponatremia, sodium 129. Potassium normal. EKG 12 with bicarb 22. President Celebrity Acquistion consulted. Possible due to IV antibiotics vancomycin and Zosyn. President Celebrity Acquistion consulted. 4. DM2 with neuropathy ? continue sliding scale insulin ? continue with Lantus ? Monitor make adjustments as necessary ? Carb controlled diet ? Continue with gabapentin but will hold his home blood pressure medications Anxiety and depression: Patient denies suicidal ideation, attempt. Started on Seroquel at night and bupropion in the morning. Advised to follow-up with a psychiatrist Dr. Barba DVT: Lovenox Charges/Coding Visit Charges Inpatient E&M: 89638 Subs Hosp L2
--- NOTE | 2024-07-13 14:02 | PCM.PN.REN ---
Subjective Subjective no new complaints Objective Data Objective Data Vital Signs: Vital Signs Temp Pulse Resp BP Pulse Ox O2 Del Method 97.9 F 83 16 157/89 H 98 Room Air 07/13/24 10:07 07/13/24 10:07 07/13/24 10:07 07/13/24 10:07 07/13/24 10:07 07/13/24 10:07 Oxygen Delivery Method Room Air Weight: 93.6 kg Body Mass Index (BMI) 31.4 Intake & Output: Intake and Output for Last 24 Hours 07/11/24 07/12/24 07/13/24 23:59 23:59 23:59 Intake Total 1100 / 1100 1150 / 1150 50 / 50 Output Total 400 / 400 Balance 1100 / 1100 1150 / 1150 -350 / -350 Lab / Micro Data 07/13/24 06:14 07/13/24 06:14 Labs: Laboratory Results - last 24 hr 07/12/24 16:29: POC Glucose 264 H 07/12/24 18:50: Urine Color Yellow, Urine Clarity Clear, Urine pH 5.0, Ur Specific [place] 1.015, Urine Protein 30 H, Urine Glucose (UA) 250 H, Urine Ketones Negative, Urine Occult Blood 10 H, Urine Nitrite Negative, Urine Bilirubin Negative, Urine Urobilinogen Normal, Ur Leukocyte Esterase Negative, Urine RBC 0-5 SEEN, Urine WBC 0-5 SEEN, Ur Squamous Epith Cells 0 SEEN, Urine Bacteria 1+, Urine Mucus 0 SEEN, Ur Random Sodium 24, Urine Creatinine 85.70 07/12/24 21:17: POC Glucose 218 H 07/13/24 06:14: WBC 6.7, RBC 3.71 L, Hgb 9.9 L, Hct 30.8 L, MCV 83.0, MCH 26.7 L, MCHC 32.1, RDW Std Deviation 40.6, RDW Coeff of Divya 13.7, Plt Count 253, MPV 9.3, Immature Gran % (Auto) 0.900, Neut % (Auto) 72.5 H, Lymph % (Auto) 15.2 L, [place] % (Auto) 8.3, Eos % (Auto) 3.0, Baso % (Auto) 0.1, Absolute Neuts (auto) 4.9, Absolute Lymphs (auto) 1.02, Nucleated RBC % 0, Sodium 136, Potassium 3.9, Chloride 105, Carbon Dioxide 25.0, Anion Gap 6, BUN 43 H, Creatinine 2.51 H, Estim Creat Clear Calc 32.57, Est GFR (MDRD) Af Amer 33 L, Est GFR (MDRD) Non-Af 28 L, BUN/Creatinine Ratio 17.1, Glucose 219 H, Calcium 8.9 07/13/24 06:20: POC Glucose 208 H 07/13/24 11:26: POC Glucose 168 H Micro: Microbiology 07/08/24 10:23 Blood Culture (Wb) - Right Hand Blood Culture - Final No growth in 5 days. 07/08/24 10:35 Blood Culture (Wb) - Anticubital Left Blood Culture - Final No growth in 5 days. 07/08/24 15:05 Wound - Left Foot Gram Stain - Final 07/08/24 15:05 Wound - Left Foot Wound Culture - Final Serratia marcescens 07/08/24 15:05 Wound - Left Foot Anaerobic Culture - Final No anaerobic bacteria isolated. 07/09/24 07:11 Wound - Left Foot Gram Stain - Final 07/09/24 07:11 Wound - Left Foot Wound Culture - Final Serratia marcescens Radiography Diagnostic Testing: Radiology Impression Renal Ultrasound 07/12/24 09:01 IMPRESSION: Negative renal ultrasound. Electronically Signed: Brandon Paul DO at 17:59 EST Reading Location ID and State: [facility] / [place] Tel [phone], Service support , Physical Exam Narrative Alert awake oriented x 3 no obvious distress no pallor no icterus no JVD s1s2 no murmurs lungs clear abdomen soft no organomegaly no edema no cyanosis Assessment & Plan Assessment/Plan (1) GRZEGORZ (acute kidney injury): PLAN: Normal baseline creatinine. Creatinine increased over the last 2 days. Urine analysis with 1+ protein, microscopic hematuria. C3 and C4 are pending. Renal ultrasound without any hydronephrosis. Fractional excretion of sodium is low. Likely prerenal. With IV fluids alone, creatinine has improved. Osteomyelitis. Antibiotics as per ID service.
--- NOTE | 2024-07-13 14:23 | CASEMGMT ---
Social Work- SW met with pt to discuss statements made as noted by RNCM. Pt reports that he is just unhappy because he feels that his care has been reactive rather than proactive and is uncertain that the treatment plan has been the most appropriate. Pt was not solution-oriented and discarded offers to facilitate conversation with adult remedial education instructor, assist pt in finding other podiatrists, or looking at podiatrists that have privileges at other facilities. Pt reports that he spoke to the pt advocate, but is sure nothing will be done. SW encouraged pt to utilize supports during this time; pt cites mother as a support. Pt reports that he is future-oriented and was simply frustrated when he made prior comments. Pt is observed to want to vent rather than than focus on solutions at this time. There are no plans at this time for surgery or amputation of foot. SW will remain available to follow. THUAN Bernard
--- NOTE | 2024-07-13 15:04 | NS ---
Addendum entered and electronically signed by Liane Velasco 07/13/24 16:01: Will attempt to reinforce diet education tomorrow, as pt willing. Reviewed and approved by Francheska Dominguez, MS, RDN, LD. Original Note: RNKush, requested reinforcement for diet education provided yesterday. RD entered room, pt stated I don't want to talk to you today.
[2024-07-13] MEDS: Gabapentin 100 MG Capsule PO ×2 (15:30→20:28)
[2024-07-13] MEDS: buPROPion (SR) 150 MG Tablet.SA PO (15:31)
[2024-07-13 17:21] LABS: Bedside Glucose 222 mg/dL (74-106)
[2024-07-13 20:20] VITALS: BP 164/88; PULSE 90; RESP 16; TEMP 37; O2SAT 99
[2024-07-13] MEDS: Insulin Glargine-YFGN 100 UNIT/ML Pen 25 UNIT SC (20:27)
[2024-07-13] MEDS: Atorvastatin Calcium 40 MG Tablet PO (20:27)
[2024-07-13] MEDS: QUEtiapine 25 MG Tablet 50 MG PO (20:28)
[2024-07-14 00:46] LABS: Bedside Glucose 184 mg/dL (74-106)
[2024-07-14 02:00] VITALS: BP 155/84; PULSE 79; RESP 18; TEMP 36.4; O2SAT 95
[2024-07-14] MEDS: Gabapentin 100 MG Capsule PO ×3 (06:40→22:03)
[2024-07-14] MEDS: metroNIDAZOLE 500 MG Tablet PO ×3 (06:40→22:01)
--- NOTE | 2024-07-14 07:36 | PN_ITS ---
Subjective Subjective Patient was seen this morning for follow up on left foot. He is resting in bed, relates he does not have pain. He has no new complaints. Objective Data Objective Data Vital Signs: Vital Signs Temp Pulse Resp BP Pulse Ox O2 Del Method 97.6 F L 79 18 155/84 H 95 Room Air 07/14/24 02:00 07/14/24 02:00 07/14/24 02:00 07/14/24 02:00 07/14/24 02:00 07/14/24 02:00 Oxygen Delivery Method Room Air Weight: 93.6 kg Body Mass Index (BMI) 31.4 Intake & Output: Intake and Output for Last 24 Hours 07/12/24 07/13/24 07/14/24 23:59 23:59 23:59 Intake Total 1150 / 1150 1100 / 1730 630 / 630 Output Total 400 / 400 Balance 1150 / 1150 700 / 1330 630 / 630 Lab / Micro Data 07/13/24 06:14 07/13/24 06:14 Labs: Laboratory Results - last 24 hr 07/13/24 06:14: Sodium 136, Potassium 3.9, Chloride 105, Carbon Dioxide 25.0, Anion Gap 6, BUN 43 H, Creatinine 2.51 H, Estim Creat Clear Calc 32.57, Est GFR (MDRD) Af Amer 33 L, Est GFR (MDRD) Non-Af 28 L, BUN/Creatinine Ratio 17.1, G lucose 219 H, Calcium 8.9 07/13/24 11:26: POC Glucose 168 H 07/13/24 16:58: POC Glucose 222 H 07/13/24 20:24: POC Glucose 184 H Micro: Microbiology 07/08/24 10:23 Blood Culture (Wb) - Right Hand Blood Culture - Final No growth in 5 days. 07/08/24 10:35 Blood Culture (Wb) - Anticubital Left Blood Culture - Final No growth in 5 days. 07/08/24 15:05 Wound - Left Foot Gram Stain - Final 07/08/24 15:05 Wound - Left Foot Wound Culture - Final Serratia marcescens 07/08/24 15:05 Wound - Left Foot Anaerobic Culture - Final No anaerobic bacteria isolated. 07/09/24 07:11 Wound - Left Foot Gram Stain - Final 07/09/24 07:11 Wound - Left Foot Wound Culture - Final Serratia marcescens Physical Exam Const alert, oriented x3 and no apparent distress Constitutional Narrative: Left foot - stable wound to 5th ray amp site, s/p I+D dorsal 4th MTPJ there is still edema to left foot, also some erythema to site but is improved, there is some serosanguineous drainage from site, proximal medial 4th toe with some dusky changes, no visible abscess, normal temperature is present, no fluctuance, no blistering, no necrosis, no crepitus, no streaking, no maloder is noted, and otherwise no evidence of acute ischemia to left foot. Assessment & Plan Assessment/Plan (1) Cellulitis of left lower limb: (2) Acute osteomyelitis of toe of left foot: (3) Diabetes mellitus with diabetic polyneuropathy: (4) Other specified peripheral vascular diseases: PLAN: Plan Evaluation performed, reviewed diagnostic data. Reviewed new left foot xrays, there is destruction changes of the 4th metatarsal head and base of 4th toe proximal phalanx, no gas in the tissues. MRI left foot has been obtained and reviewed - there are findings c/w osteomyelitis 4th metatarsal distally and also to base of 4th toe proximal phalanx - discussed with patient - discussed possible amputation - discussed possible TMA as well to create more functional foot. He relates he would really like to avoid amputation - he relate he would like to proceed with nonsurgical management with wound care and antibiotics. Discussed possible I+D pending further erythema and edema over 4th MTPJ. Will re-evaluate tomorrow. A culture was obtained of 5th ray amputation site - growing Serratia Macescens. Patient is on IV antibiotics, ID following. nephrology also following for GRZEGORZ. Given concern for abscess dorsal left 4th MTPJ discussed I+D to site with patient - reviewed procedure and he agreed, consent form was reviewed with him and he freely signed it. This was completed today as noted below. A new culture was obtained from site and sent to microbiology. Wound care: betadine solution topically with overlying gauze, kerlix and belem dressing. Heel weightbearing left foot for short distances only. PAD: patient follows with Dr. Dickens who is on consult. Podiatry will continue to follow. Incision and drainage left foot - discussed with patient, reviewed rationale of procedure, possible benefits vs risks, goals, expectations as well. Advised him the risks include but not limited to pain, bleeding, need for further procedures, nonhealing, loss of limb, loss of life. The consent form was reviewed with him and he freely signed it. He expressed understanding and agreement and he was able to repeat back. After consent was obtained the left forefoot was cleansed with 70% Isopropyl alcohol, no anesthesia was needed due to patient's peripheral neuropathy. A 15 blade was used making an incision dorsal 4th MTPJ to subcutaneous tissue - there was drainage consistent with infection, was more serous, the site was drained of the fluid, the loculations of the abscess were broken up down to 4th MTPJ capsule with a hemostat, a deep culture was obtained using a swab of the site. The site was packed with gauze and a dressing was applied consisting of 4x4 gauze, kerlix and belem dressing. He tolerated well with no complications. He was resting in bed for the procedure.
[2024-07-14 07:37] LABS: Absolute Lymphocyte Count 1.15 X10^3/uL (0.83-4.51); Basophil# 0.02 X10^3/uL; Basophil% 0.3 % (0-1); Eosinophil# 0.16 X10^3/uL; Eosinophils% 2.3 % (0-5); Hematocrit 31.5 % (40-54); Hemoglobin 10.1 g/dL (13.0-16.5); Lymphocyte # 1.15 X10^3/ul (0.83-4.51); Lymphocyte % 16.4 % (19-41); Mean Corp Hgb Conc 32.1 g/dL (32-36); Mean Corpuscular Hgb 26.9 pg (27.0-32.0); Mean Corpuscular Volume 83.8 fL (80-94); Mean Platelet Vol. 9.2 fl (6.2-12.0); Monocyte# 0.63 X10^3/uL; NRBC Flagged by Analyzer 0 % (0-5); Neutrophil # 4.99 X10^3/uL (2.7-7.7); Neutrophil % 71.3 % (47-70); Platelet Count 277 K/mm3 (150-450); RBC Distribution Width CV 13.7 % (11.6-14.6); RBC Distribution Width SD 41.2 fl (35.1-43.9); Red Blood Count 3.76 M/mm3 (4.6-6.2)
[2024-07-14 07:51] VITALS: BP 174/78; PULSE 84; RESP 16; TEMP 36.8; O2SAT 97
[2024-07-14 07:56] LABS: Anion Gap 7 (5-15); BUN 31 mg/dL (7-18); BUN/Creat Ratio 16.4 RATIO (10-20); Calcium,Total 9.2 mg/dL (8.5-10.1); Chloride 107 mmol/L (98-107); Creatinine, Serum 1.89 mg/dL (0.70-1.30); EST Glomerular Filtration Rate 38 mL/min (>60); Est Glom Filt Rate - Afr Amer 46 mL/min (>60); Estimated Creatinine Clearance 43.25 ml/min; Glucose 202 mg/dL (74-106); Sodium Level 137 mmol/L (136-145)
[2024-07-14] MEDS: Enoxaparin 40 MG/0.4 ML Syringe SC (07:59)
[2024-07-14] MEDS: amLODIPine 5 MG Tablet PO (07:59)
[2024-07-14] MEDS: DULoxetine Hcl 30 MG Capsule PO (07:59)
[2024-07-14] MEDS: Clopidogrel Bisulfate 75 MG Tablet PO (07:59)
[2024-07-14] MEDS: Aspirin E.C. 81 MG Tablet PO (07:59)
[2024-07-14] MEDS: Insulin Lispro 100 UNIT/ML INSULN.PEN 10 UNIT SC ×3 (08:00→16:42)
[2024-07-14] MEDS: Insulin Lispro 100 UNIT/ML INSULN.PEN SC ×4 (08:00→22:01)
[2024-07-14] MEDS: buPROPion (SR) 150 MG Tablet.SA PO (08:02)
[2024-07-14 08:13] LABS: Complement C3 202 mg/dL (82-167)
[2024-07-14 08:24] LABS: Bedside Glucose 199 mg/dL (74-106)
[2024-07-14] MEDS: Cefepime HCl 1 GM in 0.9% Normal Saline (50mL MB+) 50 ML IV ×2 (10:06→22:02)
[2024-07-14] MEDS: 0.9% Saline Lock 10 ML Syringe IV (10:07)
[2024-07-14 11:40] LABS: Bedside Glucose 198 mg/dL (74-106)
--- NOTE | 2024-07-14 11:54 | WOUNDNOTE ---
wound photo: left foot
--- NOTE | 2024-07-14 11:55 | WOUNDNOTE ---
wound photo: left foot
--- NOTE | 2024-07-14 12:09 | PCM.PN.REN ---
Subjective Subjective no new complaints asking about going home Objective Data Objective Data Vital Signs: Vital Signs Temp Pulse Resp BP Pulse Ox O2 Del Method 98.3 F 84 16 174/78 H 97 Room Air 07/14/24 07:51 07/14/24 07:51 07/14/24 07:51 07/14/24 07:51 07/14/24 07:51 07/14/24 07:51 Oxygen Delivery Method Room Air Weight: 93.6 kg Body Mass Index (BMI) 31.4 Intake & Output: Intake and Output for Last 24 Hours 07/12/24 07/13/24 07/14/24 23:59 23:59 23:59 Intake Total 1150 / 1150 1100 / 1730 840 / 840 Output Total 400 / 400 Balance 1150 / 1150 700 / 1330 840 / 840 Lab / Micro Data 07/14/24 05:48 07/14/24 05:48 Labs: Laboratory Results - last 24 hr 07/13/24 06:14: Complement C3 202 H, Complement C4 38 07/13/24 16:58: POC Glucose 222 H 07/13/24 20:24: POC Glucose 184 H 07/14/24 05:48: WBC 7.0, RBC 3.76 L, Hgb 10.1 L, Hct 31.5 L, MCV 83.8, MCH 26.9 L, MCHC 32.1, RDW Std Deviation 41.2, RDW Coeff of Divya 13.7, Plt Count 277, MPV 9.2, Immature Gran % (Auto) 0.700, Neut % (Auto) 71.3 H, Lymph % (Auto) 16.4 L, [place] % (Auto) 9.0, Eos % (Auto) 2.3, Baso % (Auto) 0.3, Absolute Neuts (auto) 5.0, Absolute Lymphs (auto) 1.15, Nucleated RBC % 0, Sodium 137, Potassium 4.0, Chloride 107, Carbon Dioxide 23.0, Anion Gap 7, BUN 31 H, Creatinine 1.89 H, Estim Creat Clear Calc 43.25, Est GFR (MDRD) Af Amer 46 L, Est GFR (MDRD) Non-Af 38 L, BUN/Creatinine Ratio 16.4, Glucose 202 H, Calcium 9.2 07/14/24 07:43: POC Glucose 199 H 07/14/24 11:14: POC Glucose 198 H Micro: Microbiology 07/13/24 07:45 Discharge - Incision site Wound Culture - Preliminary GNR lactose business reporting developer 07/08/24 10:23 Blood Culture (Wb) - Right Hand Blood Culture - Final No growth in 5 days. 07/08/24 10:35 Blood Culture (Wb) - Anticubital Left Blood Culture - Final No growth in 5 days. 07/08/24 15:05 Wound - Left Foot Gram Stain - Final 07/08/24 15:05 Wound - Left Foot Wound Culture - Final Serratia marcescens 07/08/24 15:05 Wound - Left Foot Anaerobic Culture - Final No anaerobic bacteria isolated. 07/09/24 07:11 Wound - Left Foot Gram Stain - Final 07/09/24 07:11 Wound - Left Foot Wound Culture - Final Serratia marcescens Physical Exam Narrative Alert awake oriented x 3 no obvious distress no pallor no icterus no JVD s1s2 no murmurs lungs clear abdomen soft no organomegaly no edema no cyanosis Assessment & Plan Assessment/Plan (1) GRZEGORZ (acute kidney injury): PLAN: Normal baseline creatinine. Creatinine increased this admit. Urine analysis with 1+ protein, microscopic hematuria. C3 and C4 are normal. Renal ultrasound without any hydronephrosis. Fractional excretion of sodium is low. Likely prerenal. With IV fluids alone, creatinine has improved. Osteomyelitis. Antibiotics as per ID service. asking about going home. no further work up from my end.
--- NOTE | 2024-07-14 12:35 | PCM.PN.ID ---
Physical Exam Narrative Feeling better, I&D done. No fever, no n/v/d. Const alert and no apparent distress General Appearance: cooperative Resp normal air movement and clear to auscultation bilaterally Cardio regular rate and regular rhythm GI soft to palpation, non-tender and non-distended Skin Skin Narrative: foot wrapped ID ID: Route of nutrition/ use of supplements: [] Nutritional Intake: [] IV Site: [] Hawley Catheter: [] Assessment & Plan Assessment/Plan (1) Diabetes mellitus with diabetic polyneuropathy: (2) Foot osteomyelitis, left: PLAN: Complicated by GRZEGORZ. On cefepime/flagyl. GRZEGORZ improved. Wound cx with serratia. Plan at this point will be 6 weeks total of abx, start date 07/13/24, can do po levaquin and flagyl at discharge. Will follow
[2024-07-14 14:30] VITALS: BP 131/78; PULSE 84; RESP 16; TEMP 36.8; O2SAT 97
--- NOTE | 2024-07-14 15:46 | CASEMGMT ---
Addendum entered by Gricelda Enrique 07/14/24 16:33: Per Dr Breen, he anticipates pt to discharge tomorrow. Pt is aware. VM left w/Amanda @ [facility]. She was made aware pt to dc home on PO atb's and anticipate dc home tomorrow and that pt still would like [facility], SN, for wound care. Original Note: REJI PHILLIPS NOTE: Per Dr Pollock note, pt to discharge home on PO atb's. REJI PHILLIPS to room. Pt made aware and voices is thankful for this. He states he would still like to have [facility] w/[facility] for SN d/t wound/dressing changes. [facility] placed. Carlos SARAH RN CM
--- NOTE | 2024-07-14 17:10 | PN.HOSP_ITS ---
Reason for Visit Reason for Visit: Diagnoses Type 2 diabetes mellitus with diabetic polyneuropathy (07/08/24) Other specified peripheral vascular diseases (07/08/24) Cellulitis of left lower limb (07/08/24) Other acute osteomyelitis, left ankle and foot (07/08/24) Osteomyelitis, unspecified (07/08/24) Acute kidney failure, unspecified (07/08/24) Objective Data Objective Data Vital Signs: Vital Signs Temp Pulse Resp BP Pulse Ox O2 Del Method 98.3 F 84 16 131/78 H 97 Room Air 07/14/24 14:30 07/14/24 14:30 07/14/24 14:30 07/14/24 14:30 07/14/24 14:30 07/14/24 14:30 Oxygen Delivery Method Room Air Weight: 206 lb 5.643 oz Body Mass Index (BMI) 31.4 Intake & Output: Intake and Output for Last 24 Hours 07/12/24 07/13/24 07/14/24 23:59 23:59 23:59 Intake Total 1150 / 1150 1100 / 1730 840 / 840 Output Total 400 / 400 Balance 1150 / 1150 700 / 1330 840 / 840 Lab / Micro Data 07/14/24 05:48 07/14/24 05:48 Labs: Laboratory Results - last 24 hr 07/13/24 06:14: Complement C3 202 H, Complement C4 38 07/13/24 16:58: POC Glucose 222 H 07/13/24 20:24: POC Glucose 184 H 07/14/24 05:48: WBC 7.0, RBC 3.76 L, Hgb 10.1 L, Hct 31.5 L, MCV 83.8, MCH 26.9 L, MCHC 32.1, RDW Std Deviation 41.2, RDW Coeff of Divya 13.7, Plt Count 277, MPV 9.2, Immature Gran % (Auto) 0.700, Neut % (Auto) 71.3 H, Lymph % (Auto) 16.4 L, [place] % (Auto) 9.0, Eos % (Auto) 2.3, Baso % (Auto) 0.3, Absolute Neuts (auto) 5.0, Absolute Lymphs (auto) 1.15, Nucleated RBC % 0, Sodium 137, Potassium 4.0, Chloride 107, Carbon Dioxide 23.0, Anion Gap 7, BUN 31 H, Creatinine 1.89 H, Estim Creat Clear Calc 43.25, Est GFR (MDRD) Af Amer 46 L, Est GFR (MDRD) Non-Af 38 L, BUN/Creatinine Ratio 16.4, Glucose 202 H, Calcium 9.2 07/14/24 07:43: POC Glucose 199 H 07/14/24 11:14: POC Glucose 198 H Micro: Microbiology 07/13/24 07:45 Discharge - Incision site Gram Stain - Final 07/13/24 07:45 Discharge - Incision site Wound Culture - Preliminary GNR lactose street railway line installer 07/08/24 10:23 Blood Culture (Wb) - Right Hand Blood Culture - Final No growth in 5 days. 07/08/24 10:35 Blood Culture (Wb) - Anticubital Left Blood Culture - Final No growth in 5 days. 07/08/24 15:05 Wound - Left Foot Gram Stain - Final 07/08/24 15:05 Wound - Left Foot Wound Culture - Final Serratia marcescens 07/08/24 15:05 Wound - Left Foot Anaerobic Culture - Final No anaerobic bacteria isolated. 07/09/24 07:11 Wound - Left Foot Gram Stain - Final 07/09/24 07:11 Wound - Left Foot Wound Culture - Final Serratia marcescens Physical Exam Narrative Seen and examined. Patient again asking the same question that whether his decision of antibiotics is better than postponing or denying the surgery. He looks double minded. Patient is anxious and depressed. Discussed with Dr. Caba and ID Patient has left fourth toe osteomyelitis. 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 Physical exam General: Alert, Oriented x3, Cooperative HEENT: Atraumatic, PERRLA, EOMI, Normocephalic Oral: No Gingival or Mucosal Lesions/ Ulcerations Neck: Supple, No JVD, Negative Carotid Bruits Chest wall/Lungs: Air entry diminished in bilateral lung bases. No crepitation/rhonchi Cardiovascular: Regular rate, Regular Rhythm, Normal S1, Normal S2, No M/G/R. Status post CABG surgery Abdomen: Bowel Sounds Present, Soft, Non Tender, Non-Distended : No dysuria. No renal angle tenderness. No suprapubic tenderness. Extremities: No edema, Capillary Refill Less than 3 Seconds Skin: Romulo wrap bandage on left foot. Status post right foot surgery. Musculoskeletal: No Tenderness to Palpation of Joints or Extremities Neurological: Cranial nerves II-XII grossly intact, DTR 2+/4. No acute focal neurological deficit. Psych/Mental Status: Normal Affect, Appropriate. Assessment & Plan Assessment/Plan (1) Osteomyelitis: PLAN: Plan 64-year-old gentleman was admitted with left fourth metatarsal osteomyelitis secondary to Serratia. He does not want surgery for now. 1. Left fourth metatarsal head osteomyelitis due to Serratia marcescens: Patient is being admitted in [facility] floor. MRI with osteomyelitis however he does not want any further surgery amputation ID was consulted. Patient increase in creatinine with Zosyn. Vancomycin and Zosyn discontinued. Changed to cefepime and Flagyl. on as needed Xanax to help control his anxiety 07/13: Continue antibiotic 07/14: ID follow-up appreciated. Again discussed pros and cons of antibiotic versus surgery. I advised the infection/source control is important in order for effective antibiotic action but he states he wants to follow-up with Dr. Browne does not work here anymore. ID plan for discharge on p.o. antibiotic Levaquin and Flagyl for 6 weeks. 2. CAD status post CABG and stents/essential HTN/HLD ?l continue with his home blood pressure medications ? Monitor make adjustments as necessary ? Aspirin and Plavix. ? Continue with Norvasc and metoprolol ? Continue with Lipitor 3. GRZEGORZ: Patient creatinine increased from 2.35-3.5. Hyponatremia, sodium 129. Potassium normal. EKG 12 with bicarb 22. Band Tumbler consulted. Possible due to IV antibiotics vancomycin and Zosyn. Band Tumbler consulted. 07/14: Improvement in creatinine from 2.5-1.89. 4. DM2 with neuropathy ? continue sliding scale insulin ? continue with Lantus ? Monitor make adjustments as necessary ? Carb controlled diet ? Continue with gabapentin but will hold his home blood pressure medications Anxiety and depression: Patient denies suicidal ideation, attempt. Started on Seroquel at night and bupropion in the morning. Advised to follow-up with a psychiatrist Dr. Barba DVT: Lovenox Charges/Coding Visit Charges Inpatient E&M: 94345 Subs Hosp L2
[2024-07-14 17:14] LABS: Bedside Glucose 161 mg/dL (74-106)
[2024-07-14] MEDS: Acetaminophen 500 MG Tablet 1000 MG PO (18:23)
[2024-07-14] MEDS: oxyCODONE 5 MG Tablet 10 MG PO (18:23)
--- NOTE | 2024-07-14 21:35 | CON.PCM.SX_ITS ---
Assessment & Plan Assessment/Plan (1) Acute osteomyelitis of toe of left foot: (2) PAD (peripheral artery disease): (3) Diabetes mellitus with diabetic polyneuropathy: PLAN: Plan His vascular exam is stable today. He has sufficient left lower extremity inflow to support healing, do not think there is any ischemic component at this time. No plans for vascular intervention this admission, will plan for continued outpatient follow-up. HPI Consult Data Date of Consult: 07/14/24 HPI Narrative HPI Narrative: ROSETTA STEWART, is a 64 M who presented to the [facility] ER with concern for left foot wound infection and he was admitted for IV antibiotics and further evaluation. Recall that he is status post left fifth toe amputation secondary to diabetic foot ulcer and osteomyelitis on 04/13/2024. He subsequently has had delayed healing and dehiscence of the surgical site due to noncompliance with weightbearing restrictions and poorly controlled diabetes (A1c this admission 9.6). On admission, his x-ray was suggestive of no osteomyelitis in the fourth metatarsal and proximal phalanx which was confirmed on MRI. Podiatry did perform I&D but ultimately recommended TMA. Patient has declined TMA, labs instead to proceed with antibiotic regimen and continued wound care. Recall that he is also status post left AT angioplasty on 04/19/2024. His most recent arterial study was 06/01/2024 which showed patent AT intervention, left RACHEL 1.03 with biphasic waveforms. I saw him this evening, he was resting comfortably in bed. He expressed frustration at this new infection and new wounds but otherwise had no complaints. He again relates that he is not interested in amputation at this time. [facility] Medical History Essential hypertension Atherosclerotic heart disease of [place] coronary artery without angina pectoris History of left heart catheterization (LHC) (~08/15/22) CAD (coronary artery disease) Hypertension History of coronary artery disease Cardiology follow-up encounter History of echocardiogram Open wound Uses crutches High cholesterol Dietary restriction Non-smoker Asthma Coronary artery disease 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 Diabetes mellitus with diabetic polyneuropathy Type 2 diabetes mellitus with foot ulcer Other specified peripheral vascular diseases Osteomyelitis PAD (peripheral artery disease) Delayed wound healing Hallux limitus of right foot Anxiety Depression Myocardial infarct Hallux limitus of right foot Type 2 diabetes mellitus with diabetic polyneuropathy Toe infection Heart disease HTN (hypertension) Diabetes mellitus CAD (coronary artery disease) DM2 (diabetes mellitus, type 2) Asthma Home Medications ?Medication ?Instructions ?Recorded ?Last Taken ?Type albuterol sulfate 90 mcg/actuation 1 - 2 puff inhalation Q4H PRN PRN 09/17/20 07/08/24 History aerosol inhaler Wheezing clopidogrel 75 mg tablet 75 mg PO DAILY bld thinner 09/17/20 07/08/24 History fluticasone propionate 50 2 puff IH DAILY breathing 09/17/20 04/29/24 History mcg/actuation blister powder for inhalation acetaminophen 500 mg tablet 1,000 mg PO Q6H PRN pain 08/29/22 07/08/24 History aspirin 81 mg tablet,delayed 81 mg PO DAILY thinner 08/29/22 07/08/24 History release (Adult Low Dose Aspirin) furosemide 20 mg tablet 20 mg PO DAILY . 08/29/22 07/08/24 History metoprolol tartrate 25 mg tablet 25 mg PO BID bp 08/29/22 Unknown History nitroglycerin 0.4 mg sublingual 0.4 mg sublingual Q5-15M PRN chest 08/29/22 Unknown History tablet pain amlodipine 5 mg tablet 5 mg PO DAILY BP 04/11/24 07/08/24 History duloxetine 20 mg capsule,delayed 30 mg PO DAILY depression 04/11/24 04/29/24 History release glimepiride 4 mg tablet 8 mg PO DAILY DM 04/11/24 07/08/24 History metformin 500 mg tablet,extended 1,000 mg PO BID DM 04/11/24 07/08/24 History release 24 hr lancets 32 gauge and blood glucose #300 ea 04/20/24 Unknown Rx strips kit oxycodone 5 mg tablet 10 mg (2 x 5 mg) PO Q4H PRN PRN 04/20/24 07/07/24 Rx Pain Score 1-10 4 days #30 tabs pen needle, diabetic 31 gauge x #100 ea 04/20/24 Unknown Rx 5/16 (BD Ultra-Fine Short Pen Needle) gabapentin 300 mg capsule 300 mg PO TID 07/08/24 07/08/24 History insulin glargine-yfgn 100 unit/mL 20 unit subcut DAILY 07/08/24 07/07/24 History (3 mL) subcutaneous pen Allergy/AdvReac Type Severity Reaction Status Date / Time No Known Allergies Allergy Verified 07/08/24 09:45 Family History Mother Diabetes Hypertension Father Diabetes Hypertension Surgical History History of coronary artery bypass graft x 3 (~08/21/22) Status post right foot surgery S/P peripheral artery angioplasty with stent placement (~07/25/21) History of coronary artery stent placement Social History household members: none Smoking Status: Never smoker alcohol intake: never substance use type: does not use Physical Exam Const alert, oriented x3 and no apparent distress General Appearance: cooperative and comfortable HEENT normocephalic, head/scalp atraumatic, hearing grossly normal bilaterally and external ears normal Eyes EOMs intact bilaterally General Eye: normal appearance of both eyes Neck General: normal visual inspection and trachea midline Resp normal respiratory effort, normal air movement, no retractions and no use of accessory muscles Effort and Inspection: able to speak in complete sentences Cardio regular rate and regular rhythm Extremity Extremity Narrative: Left lower extremity the dressings in place, C/D/I; not removed for exam, just shifted gauze to assess pulses. + L PT, AT, peroneal Doppler signals, multiphasic and strong Neuro oriented x3, CN's II-XII intact bilaterally, moves all extremities and no focal motor deficits Speech: speech normal Psych mental status grossly normal, thought process normal, cooperative, affect normal and speech normal Attitude: calm and engaged Lab / Micro Data 07/14/24 05:48 07/14/24 05:48 Labs: Laboratory Results - last 24 hr 07/13/24 06:14: Complement C3 202 H, Complement C4 38 07/13/24 20:24: POC Glucose 184 H 07/14/24 05:48: WBC 7.0, RBC 3.76 L, Hgb 10.1 L, Hct 31.5 L, MCV 83.8, MCH 26.9 L, MCHC 32.1, RDW Std Deviation 41.2, RDW Coeff of Divya 13.7, Plt Count 277, MPV 9.2, Immature Gran % (Auto) 0.700, Neut % (Auto) 71.3 H, Lymph % (Auto) 16.4 L, [place] % (Auto) 9.0, Eos % (Auto) 2.3, Baso % (Auto) 0.3, Absolute Neuts (auto) 5.0, Absolute Lymphs (auto) 1.15, Nucleated RBC % 0, Sodium 137, Potassium 4.0, Chloride 107, Carbon Dioxide 23.0, Anion Gap 7, BUN 31 H, Creatinine 1.89 H, Estim Creat Clear Calc 43.25, Est GFR (MDRD) Af Amer 46 L, Est GFR (MDRD) Non-Af 38 L, BUN/Creatinine Ratio 16.4, Glucose 202 H, Calcium 9.2 07/14/24 07:43: POC Glucose 199 H 07/14/24 11:14: POC Glucose 198 H 07/14/24 16:40: POC Glucose 161 H Micro: Microbiology 07/13/24 07:45 Discharge - Incision site Gram Stain - Final 07/13/24 07:45 Discharge - Incision site Wound Culture - Preliminary GNR lactose customer pricing manager Charges/Coding Visit Charges Inpatient E&M: 25749 Init Hosp L1
[2024-07-14 21:55] VITALS: BP 150/78; PULSE 79; RESP 16; TEMP 36.6; O2SAT 98
[2024-07-14] MEDS: Atorvastatin Calcium 40 MG Tablet PO (22:02)
[2024-07-14] MEDS: Insulin Glargine-YFGN 100 UNIT/ML Pen 25 UNIT SC (22:02)
[2024-07-14] MEDS: QUEtiapine 25 MG Tablet 50 MG PO (22:03)
[2024-07-14 22:45] LABS: Bedside Glucose 177 mg/dL (74-106)
[2024-07-15 03:55] VITALS: BP 161/82; PULSE 78; RESP 16; TEMP 36.7; O2SAT 97
[2024-07-15] MEDS: Acetaminophen 500 MG Tablet 1000 MG PO (05:50)
[2024-07-15] MEDS: Gabapentin 100 MG Capsule PO ×2 (05:50→13:18)
[2024-07-15] MEDS: metroNIDAZOLE 500 MG Tablet PO ×2 (05:50→13:16)
[2024-07-15 07:00] LABS: Anion Gap 7 (5-15); BUN 23 mg/dL (7-18); BUN/Creat Ratio 13.3 RATIO (10-20); Calcium,Total 9.4 mg/dL (8.5-10.1); Chloride 106 mmol/L (98-107); Creatinine, Serum 1.73 mg/dL (0.70-1.30); EST Glomerular Filtration Rate 42 mL/min (>60); Est Glom Filt Rate - Afr Amer 51 mL/min (>60); Estimated Creatinine Clearance 47.25 ml/min; Glucose 197 mg/dL (74-106); Potassium 3.7 mmol/L (3.5-5.1); Sodium Level 138 mmol/L (136-145)
[2024-07-15 07:53] VITALS: BP 162/86; PULSE 82; RESP 18; TEMP 36.7; O2SAT 95
--- NOTE | 2024-07-15 07:54 | PCM.PROGNOTE ---
Subjective Subjective Patient was seen this morning for follow up on his left foot. He is resting in bed, he relates he has no pain. He has no new complaints. Objective Data Objective Data Vital Signs: Vital Signs Temp Pulse Resp BP Pulse Ox O2 Del Method 98.0 F 78 16 161/82 H 97 Room Air 07/15/24 03:55 07/15/24 03:55 07/15/24 03:55 07/15/24 03:55 07/15/24 03:55 07/15/24 04:00 Oxygen Delivery Method Room Air Weight: 93.6 kg Body Mass Index (BMI) 31.4 Intake & Output: Intake and Output for Last 24 Hours 07/13/24 07/14/24 07/15/24 23:59 23:59 23:59 Intake Total 1100 / 1730 890 / 890 Output Total 400 / 400 Balance 700 / 1330 890 / 890 Lab / Micro Data 07/14/24 05:48 07/15/24 05:39 Labs: Laboratory Results - last 24 hr 07/13/24 06:14: Complement C3 202 H, Complement C4 38 07/14/24 05:48: Sodium 137, Potassium 4.0, Chloride 107, Carbon Dioxide 23.0, Anion Gap 7, BUN 31 H, Creatinine 1.89 H, Estim Creat Clear Calc 43.25, Est GFR (MDRD) Af Amer 46 L, Est GFR (MDRD) Non-Af 38 L, BUN/Creatinine Ratio 16.4, Glucose 202 H, Calcium 9.2 07/14/24 07:43: POC Glucose 199 H 07/14/24 11:14: POC Glucose 198 H 07/14/24 16:40: POC Glucose 161 H 07/14/24 21:59: POC Glucose 177 H 07/15/24 05:39: Sodium 138, Potassium 3.7, Chloride 106, Carbon Dioxide 25.0, Anion Gap 7, BUN 23 H, Creatinine 1.73 H, Estim Creat Clear Calc 47.25, Est GFR (MDRD) Af Amer 51 L, Est GFR (MDRD) Non-Af 42 L, BUN/Creatinine Ratio 13.3, Glucose 197 H, Calcium 9.4 Micro: Microbiology 07/13/24 07:45 Discharge - Incision site Gram Stain - Final 07/13/24 07:45 Discharge - Incision site Wound Culture - Preliminary GNR lactose radio aerial installer 07/08/24 10:23 Blood Culture (Wb) - Right Hand Blood Culture - Final No growth in 5 days. 07/08/24 10:35 Blood Culture (Wb) - Anticubital Left Blood Culture - Final No growth in 5 days. 07/08/24 15:05 Wound - Left Foot Gram Stain - Final 07/08/24 15:05 Wound - Left Foot Wound Culture - Final Serratia marcescens 07/08/24 15:05 Wound - Left Foot Anaerobic Culture - Final No anaerobic bacteria isolated. 07/09/24 07:11 Wound - Left Foot Gram Stain - Final 07/09/24 07:11 Wound - Left Foot Wound Culture - Final Serratia marcescens Physical Exam Const alert, oriented x3 and no apparent distress Constitutional Narrative: Left foot - stable wound to 5th ray amp site, s/p I+D dorsal 4th MTPJ there is still edema to left foot, also some erythema to site it does appear improved at this time, there is some trace serosanguineous drainage from site, medial 4th toe with dusky changes, no visible abscess, normal temperature is present, no fluctuance, no blistering, no necrosis, no crepitus, no streaking, no maloder is noted, and otherwise no evidence of acute ischemia to left foot. Assessment & Plan Assessment/Plan (1) Cellulitis of left lower limb: (2) Acute osteomyelitis of toe of left foot: (3) Diabetes mellitus with diabetic polyneuropathy: (4) Other specified peripheral vascular diseases: PLAN: Plan Evaluation performed, reviewed diagnostic data. Xray and MRI findings c/w osteomyelitis 4th metatarsal and proximal phalanx. New left foot xrays obtained - no acute changes, no gas in the tissues. He declines amputation. He agreed to I+D dorsal left 4th MTPJ which was completed on 07/13/2024 - clinically there is noted improvement from infection standpoint with antibiotics and I+D. 4th toe is dusky. Discussed with him the high risk of limb loss given infection and all of his medial problems. Discussed with him the possibility of 4th ray amputation vs TMA. Reviewed possible benefits vs risks of each. He elects against amputation, he elects to try antibiotics and wound care, and he requests second opinion. Cultures growing Serratia. Patient on antibiotics, Infectious Disease on consult. Nephrology also on consult for GRZEGORZ. Vascular Surgery on consult - no plans for further vascular intervention. Wound care: betadine solution gauze packing with overlying gauze, kerlix and light belem dressing - change daily. Strict offloading of wounds left foot. I have discussed with him and recommended he go to nursing facility to adzing and boring machine helper in care and recovery. He adamantly refuses. He understands the increased risks of worsening infection and limb loss with his decision. Patient also requests a second opinion. I have offered to help him coordinate this, offered referral to [facility], but he declined, he relates he has appointment scheduled with Dr. Orosco in [place] for this coming Friday.
[2024-07-15] MEDS: Insulin Lispro 100 UNIT/ML INSULN.PEN 10 UNIT SC ×2 (08:00→11:16)
[2024-07-15] MEDS: Insulin Lispro 100 UNIT/ML INSULN.PEN SC ×2 (08:00→11:16)
[2024-07-15] MEDS: buPROPion (SR) 150 MG Tablet.SA PO (08:01)
[2024-07-15] MEDS: amLODIPine 5 MG Tablet PO (08:01)
[2024-07-15] MEDS: Aspirin E.C. 81 MG Tablet PO (08:01)
[2024-07-15] MEDS: Clopidogrel Bisulfate 75 MG Tablet PO (08:01)
[2024-07-15] MEDS: Enoxaparin 40 MG/0.4 ML Syringe SC (08:02)
[2024-07-15] MEDS: DULoxetine Hcl 30 MG Capsule PO (08:02)
--- NOTE | 2024-07-15 08:20 | RAD_ITS ---
STUDY: X-RAY - LEFT FOOT CLINICAL: Male, 64 years old. Osteomyelitis 4th toe/MTPJ TECHNIQUE: 3 view(s) of the foot. COMPARISON: Comparison is made with prior study June 30, 2004. FINDINGS: Small plantar spur. Normal visualized subtalar, talonavicular, calcaneocuboid, tarsal and tarsometatarsal articulations. The patient is status post resection of the distal portion of the fifth metatarsal as well as the fifth toe. Normal metatarsophalangeal joint of the great toe. Normal tibial and fibular sesamoid bones. Normal interphalangeal joint of the great toe. Normal phalanges of the great toe. Is evidence of osteomyelitis at the fourth metatarsal phalangeal joint. Soft tissue swelling. RAD/Foot min 3 Views IMPRESSION: Findings suggestive of osteomyelitis at the fourth metatarsal phalangeal joint. Soft tissue swelling. Electronically Signed: Darius Calix MD at 8:54 EST ,
[2024-07-15] MEDS: Cefepime HCl 1 GM in 0.9% Normal Saline (50mL MB+) 50 ML IV (09:36)
--- NOTE | 2024-07-15 11:28 | DCINST_ITS ---
Discharge Instructions Diet Discharge Diet: 1800 Calorie Control Diet and 2000 mg Sodium Diet DC O2, CPAP, BIPAP needs Additional Home O2 Discharge instructions: No Dressing / Incision Discharge Activity: Return to Normal Activity Weight Bearing Status: Weight bearing as tolerated Dressing / Incision Call your doctor if you observe: Fever of 101 or Higher, Coldness, Increased Pain, Numbness or Tingling, Change in Color, Inability to urinate, Inability to have a bowel movement, Shortness of breath, Dizziness, Fainting spells, Swelling in the ankles, Chest pain, Prolonged hiccupping, Increased palpitations (irregular heartbeat) and Calf discomfort Follow Up Care When: IN 2 WEEKS Test Results: Test results from this visit will be discussed in further detail at your follow- up appointment, if applicable. Discharge Plan Admission Admit Date/Time: 07/08/24 11:37 Attending Provider: Hubert Breen Primary Care Provider: Vee Montana NP Consulting Providers: Ty Caba; Ronal Rodríguez; Sunday Pollock; Nilay Montoya; Peter Dickens Discharge Orders/Prescriptions Prescriptions: No Action acetaminophen 500 mg tablet 1,000 mg PO Q6H PRN (Reason: pain) metoprolol tartrate 25 mg tablet 25 mg PO BID furosemide 20 mg tablet 20 mg PO DAILY aspirin [Adult Low Dose Aspirin] 81 mg tablet,delayed release (DR/EC) 81 mg PO DAILY nitroglycerin 0.4 mg tablet, sublingual 0.4 mg sublingual Q5-15M PRN (Reason: chest pain) Rx Instructions: do not exceed 3 doses per episode fluticasone propionate 50 MCG blister with device 2 puff IH DAILY clopidogrel 75 MG tablet 75 mg PO DAILY albuterol sulfate 1 INHALER inhaler 1 - 2 puff INHALATION Q4H PRN PRN (Reason: Wheezing) amlodipine 5 mg tablet 5 mg PO DAILY duloxetine 20 mg capsule,delayed release(DR/EC) 30 mg PO DAILY metformin 500 mg tablet extended release 24 hr 1,000 mg PO BID glimepiride 4 mg tablet 8 mg PO DAILY oxycodone 5 mg Tablet 10 mg PO Q4H PRN PRN (Reason: Pain Score 1-10) 4 Days Qty: 30 0RF (DME) pen needle, diabetic [BD Ultra-Fine Short Pen Needle] 31 gauge x 5/16 needle See Rx Instructions .Route Qty: 100 3RF Rx Instructions: Please inject long-acting insulin glargine twice daily (DME) lancets-blood glucose strips 32 gauge kit See Rx Instructions .Route Qty: 300 0RF Rx Instructions: Check glucose twice daily, once in the morning and once at bedtime gabapentin 300 mg capsule 300 mg PO TID insulin glargine-yfgn 100 unit/mL (3 mL) Insulin Pen 20 unit subcut DAILY Referrals / Follow Up: Vee Montana AGILE PROJECT MANAGER, AGILE PROJECT MANAGER-C [Primary Care Provider] - Disposition Disposition (needs filled in before D/C Order can be placed): Home Health Service
--- NOTE | 2024-07-15 11:28 | PCM.DC ---
Discharge Instructions Diet Discharge Diet: 1800 Calorie Control Diet and 2000 mg Sodium Diet DC O2, CPAP, BIPAP needs Additional Home O2 Discharge instructions: No Dressing / Incision Discharge Activity: Return to Normal Activity Weight Bearing Status: Weight bearing as tolerated Dressing / Incision Call your doctor if you observe: Fever of 101 or Higher, Coldness, Increased Pain, Numbness or Tingling, Change in Color, Inability to urinate, Inability to have a bowel movement, Shortness of breath, Dizziness, Fainting spells, Swelling in the ankles, Chest pain, Prolonged hiccupping, Increased palpitations (irregular heartbeat) and Calf discomfort Follow Up Care When: IN 2 WEEKS Test Results: Test results from this visit will be discussed in further detail at your follow-up appointment, if applicable. Discharge Plan Admission Admit Date/Time: 07/08/24 11:37 Primary Reason for Your Visit: Daibetic left 4th [place] OSTEOMYELITIS Attending Provider: Hubert Breen Primary Care Provider: Vee Montana REHABILITATION MEDICINE PHYSICIAN Consulting Providers: Ty Caba; Ronal Rodríguez; Sunday Pollock; Nilay Montoya; Peter Dickens Discharge Orders/Prescriptions Prescriptions: New metronidazole 500 mg Tablet 500 mg PO TID 42 Days Qty: 126 0RF atorvastatin 40 mg Tablet 40 mg PO QHS 30 Days Qty: 30 2RF levofloxacin 750 mg tablet 750 mg PO Q48H 42 Days Qty: 21 0RF Continued metoprolol tartrate 25 mg tablet 25 mg PO BID furosemide 20 mg tablet 20 mg PO DAILY aspirin [Adult Low Dose Aspirin] 81 mg tablet,delayed release (DR/EC) 81 mg PO DAILY nitroglycerin 0.4 mg tablet, sublingual 0.4 mg sublingual Q5-15M PRN (Reason: chest pain) Rx Instructions: do not exceed 3 doses per episode fluticasone propionate 50 MCG blister with device 2 puff IH DAILY clopidogrel 75 MG tablet 75 mg PO DAILY albuterol sulfate 1 INHALER inhaler 1 - 2 puff INHALATION Q4H PRN PRN (Reason: Wheezing) duloxetine 20 mg capsule,delayed release(DR/EC) 30 mg PO DAILY metformin 500 mg tablet extended release 24 hr 1,000 mg PO BID oxycodone 5 mg Tablet 10 mg PO Q4H PRN PRN (Reason: Pain Score 1-10) 4 Days Qty: 30 0RF (DME) pen needle, diabetic [BD Ultra-Fine Short Pen Needle] 31 gauge x 5/16 needle See Rx Instructions .Route Qty: 100 3RF Rx Instructions: Please inject long-acting insulin glargine twice daily (DME) lancets-blood glucose strips 32 gauge kit See Rx Instructions .Route Qty: 300 0RF Rx Instructions: Check glucose twice daily, once in the morning and once at bedtime gabapentin 300 mg capsule 300 mg PO TID Changed acetaminophen 500 mg tablet 1,000 mg PO Q8H PRN (Reason: pain) 30 Days Qty: 0 0RF insulin glargine-yfgn 100 unit/mL (3 mL) Insulin Pen 30 unit subcut DAILY 30 Days Qty: 0 0RF amlodipine 5 mg tablet 10 mg PO DAILY 30 Days Qty: 0 0RF glimepiride 4 mg tablet 4 mg PO BIDCM 30 Days Qty: 0 0RF Referrals / Follow Up: Vee Montana NP, REHABILITATION MEDICINE PHYSICIAN-C [Primary Care Provider] - Nilay Montoya MD [Med Staff - Consulting] - Within 1 Month Natali Orosco DPM [Med Staff - Active Staff] - Within 1 Week Sunday Pollock MD [Med Staff - Active Staff] - Within 1 Month Disposition Disposition (needs filled in before D/C Order can be placed): Home Health Service
[2024-07-15 11:55] LABS: Bedside Glucose 233 mg/dL (74-106)
--- NOTE | 2024-07-15 12:12 | CASEMGMT ---
Addendum entered by Paola Laws 07/15/24 12:49: REJI CM into pt room, pt sitting up in bed with mother at bedside. Pt is aware that [facility] will be out to see him tomorrow to resume care. Pt is comfortable with dressing changes. Pt is aware that he will be on po atb. Pt very ready for dc. Pt and mother deny further needs at this time. Original Note: Received notification from Amanda at [facility] that they will resume pt care tomorrow. Added to dc instructions.
--- NOTE | 2024-07-15 12:28 | PCM.DC.SUM ---
Providers Date of Admission: 07/08/24 Date of Discharge: 07/15/24 Primary Care Physician: LUCIANO Newell Consultations 07/08/24 13:00 Consult: Onc/Wound/hob grinder Routine Comment: Consult: Podiatry Routine Consulting Provider: Ty Caba Reason for Consult: left toe osteo EMERGENT Consult: No MD Notified: Yes Date Notified: 07/08/24 Time Notified: 11:41 Method of Notification: ED Physician Initiated 07/12/24 07:00 Consult: Infectious Disease Routine Consulting Provider: Sunday Pollock Reason for Consult: Osteomyelitis patient refuses surgery EMERGENT Consult: No MD Notified: Yes Date Notified: 07/12/24 Time Notified: 07:39 Method of Notification: Text 07/12/24 10:51 Consult: Nephrology Routine Consulting Provider: Nilay Montoya Reason for Consult: GRZEGORZ EMERGENT Consult: No MD Notified: Yes Date Notified: 07/12/24 Time Notified: 10:51 Method of Notification: Text 07/13/24 12:35 Consult: Vascular Surgery Routine Consulting Provider: Peter Dickens Reason for Consult: PAD EMERGENT Consult: No MD Notified: Yes Date Notified: 07/13/24 Time Notified: 12:36 Method of Notification: Text Reason For Visit: OSTEO Diagnosis Discharge Diagnosis (1) Cellulitis of left lower limb: Status: Acute Code(s): L03.116 - Cellulitis of left lower limb (2) Acute osteomyelitis of toe of left foot: Status: Acute Code(s): M86.172 - Other acute osteomyelitis, left ankle and foot (3) Diabetes mellitus with diabetic polyneuropathy: Status: Acute Code(s): E11.42 - Type 2 diabetes mellitus with diabetic polyneuropathy (4) Other specified peripheral vascular diseases: Status: Acute Code(s): I73.89 - Other specified peripheral vascular diseases Plan 64-year-old gentleman was admitted with left fourth metatarsal osteomyelitis secondary to Serratia. He does not want surgery for now. 1. 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 MRI with osteomyelitis however he does not want any further surgery amputation ID was consulted. Patient increase in creatinine with Zosyn. Vancomycin and Zosyn discontinued. Changed to cefepime and Flagyl. on as needed Xanax to help control his anxiety 07/13: Continue antibiotic 07/14: ID follow-up appreciated. Again discussed pros and cons of antibiotic versus surgery. I advised the infection/source control is important in order for effective antibiotic action but he states he wants to follow-up with Dr. Browne does not work here anymore. ID plan for discharge on p.o. antibiotic Levaquin and Flagyl for 6 weeks. 07/15: Discussed with the patient and his mother near the bedside. Patient wants to follow-up with racing manager, Dr. Brenda Orosco, in [place] and states he has appointment on Friday. Prescription for Levaquin and Flagyl given for 6 weeks. Follow-up in wound clinic. 2. CAD status post CABG and stents/essential HTN/HLD ?l continue with his home blood pressure medications ? Monitor make adjustments as necessary ? Aspirin and Plavix. ? Continue with Norvasc and metoprolol ? Continue with Lipitor 3. GRZEGORZ: Patient creatinine increased from 2.35-3.5. Hyponatremia, sodium 129. Potassium normal. EKG 12 with bicarb 22. Corset Maker consulted. Possible due to IV antibiotics vancomycin and Zosyn. Corset Maker consulted. 07/14: Improvement in creatinine from 2.5-1.89. 07/15: Creatinine 1.73. Advised to follow with advertising sales assistant. 4. DM2 with neuropathy ? continue sliding scale insulin ? continue with Lantus ? Monitor make adjustments as necessary ? Carb controlled diet ? Continue with gabapentin but will hold his home blood pressure medications Anxiety and depression: Patient denies suicidal ideation, attempt. Started on Seroquel at night and bupropion in the morning. Advised to follow-up with a psychiatrist Dr. Barba DVT: Lovenox Discharge medication reconciliation done. Discharge follow-up instructions completed. Discharge process discussed with the patient and all questions were answered to patient's satisfaction. Follow with PCP in 1 to 2 weeks Total time spent, exact 35 minutes on discharge meds reconciliation, examination, coordination of care with nurses and ancillary staff, review of imaging and blood test and discussion with the patient on follow-up instructions. Medications at Discharge Home Medications albuterol sulfate 90 mcg/actuation aerosol inhaler 1 - 2 puff inhalation Q4H PRN PRN Wheezing 09/17/20 clopidogrel 75 mg tablet 75 mg PO DAILY bld thinner 09/17/20 fluticasone propionate 50 mcg/actuation blister powder for inhalation 2 puff IH DAILY breathing 09/17/20 aspirin 81 mg tablet,delayed release (Adult Low Dose Aspirin) 81 mg PO DAILY thinner 08/29/22 furosemide 20 mg tablet 20 mg PO DAILY . 08/29/22 metoprolol tartrate 25 mg tablet 25 mg PO BID bp 08/29/22 nitroglycerin 0.4 mg sublingual tablet 0.4 mg sublingual Q5-15M PRN chest pain 08/29/22 duloxetine 20 mg capsule,delayed release 30 mg PO DAILY depression 04/11/24 metformin 500 mg tablet,extended release 24 hr 1,000 mg PO BID DM 04/11/24 lancets 32 gauge and blood glucose strips kit #300 ea 04/20/24 oxycodone 5 mg tablet 10 mg (2 x 5 mg) PO Q4H PRN PRN Pain Score 1-10 4 days #30 tabs 04/20/24 pen needle, diabetic 31 gauge x 5/16 (BD Ultra-Fine Short Pen Needle) #100 ea 04/20/24 gabapentin 300 mg capsule 300 mg PO TID 07/08/24 acetaminophen 500 mg tablet 1,000 mg (2 x 500 mg) PO Q8H PRN pain 30 days #0 tabs 07/15/24 amlodipine 5 mg tablet 10 mg (2 x 5 mg) PO DAILY BP 30 days #0 tabs 07/15/24 atorvastatin 40 mg tablet 40 mg PO QHS 30 days #30 tabs 07/15/24 glimepiride 4 mg tablet 4 mg PO BIDCM DM 30 days #0 tabs 07/15/24 insulin glargine-yfgn 100 unit/mL (3 mL) subcutaneous pen 30 unit (0.3 mL) subcut DAILY 30 days #0 mL 07/15/24 levofloxacin 750 mg tablet 750 mg PO Q48H 6 weeks #21 tabs 07/15/24 metronidazole 500 mg tablet 500 mg PO TID 6 weeks #126 tabs 07/15/24 Physical Exam Narrative Seen and examined. Discussed with ID and consulted racing manager Dr. Caba. No acute change. Physical exam General: Alert, Oriented x3, Cooperative HEENT: Atraumatic, PERRLA, EOMI, Normocephalic Oral: No Gingival or Mucosal Lesions/ Ulcerations Neck: Supple, No JVD, Negative Carotid Bruits Chest wall/Lungs: Air entry diminished in bilateral lung bases. No crepitation/rhonchi Cardiovascular: Regular rate, Regular Rhythm, Normal S1, Normal S2, No M/G/R. Status post CABG surgery Abdomen: Bowel Sounds Present, Soft, Non Tender, Non-Distended : No dysuria. No renal angle tenderness. No suprapubic tenderness. Extremities: No edema, Capillary Refill Less than 3 Seconds Skin: Romulo wrap bandage on left foot. Musculoskeletal: No Tenderness to Palpation of Joints or Extremities Neurological: Cranial nerves II-XII grossly intact, DTR 2+/4. No acute focal neurological deficit. Psych/Mental Status: Normal Affect, Appropriate. Weight / BMI Weight Weight: 206 lb 5.643 oz Body Mass Index (BMI) 31.4 ABG / Lab / Microbiology Data 07/14/24 05:48 07/15/24 05:39 Laboratory: Laboratory Results - last 24 hr 07/14/24 16:40: POC Glucose 161 H 07/14/24 21:59: POC Glucose 177 H 07/15/24 05:39: Sodium 138, Potassium 3.7, Chloride 106, Carbon Dioxide 25.0, Anion Gap 7, BUN 23 H, Creatinine 1.73 H, Estim Creat Clear Calc 47.25, Est GFR (MDRD) Af Amer 51 L, Est GFR (MDRD) Non-Af 42 L, BUN/Creatinine Ratio 13.3, Glucose 197 H, Calcium 9.4 07/15/24 11:13: POC Glucose 233 H Microbiology: Microbiology 07/13/24 07:45 Discharge - Incision site Gram Stain - Final 07/13/24 07:45 Discharge - Incision site Wound Culture - Final Serratia marcescens 07/08/24 10:23 Blood Culture (Wb) - Right Hand Blood Culture - Final No growth in 5 days. 07/08/24 10:35 Blood Culture (Wb) - Anticubital Left Blood Culture - Final No growth in 5 days. 07/08/24 15:05 Wound - Left Foot Gram Stain - Final 07/08/24 15:05 Wound - Left Foot Wound Culture - Final Serratia marcescens 07/08/24 15:05 Wound - Left Foot Anaerobic Culture - Final No anaerobic bacteria isolated. 07/09/24 07:11 Wound - Left Foot Gram Stain - Final 07/09/24 07:11 Wound - Left Foot Wound Culture - Final Serratia marcescens Radiography Diagnostic Testing: Radiology Impression Foot X-Ray 07/15/24 08:20 IMPRESSION: Findings suggestive of osteomyelitis at the fourth metatarsal phalangeal joint. Soft tissue swelling. Electronically Signed: Darius Calix MD at 8:54 EST , D/C Instructions DC O2, CPAP, BIPAP Needs Additional Home O2 Discharge instructions: No DC home with Oxygen: No Meaningful Use Info Meaningful Use Meaningful Use Diagnoses (Choose all that apply): None applicable Ischemic Stroke Statin Dosing Therapy Reference: STATIN DOSE THERAPY REFERENCE: * Patients > 75 years receive moderate or high dose statin therapy. * Patients 75 years or YOUNGER should receive HIGH intensity statin dose unless contraindicated. You will be required to document reason for non-treatment if statin daily dose does not meet guidelines. HIGH DOSE STATIN THERAPY DAILY Atorvastatin > than or = to 40 mg Rosuvastatin > than or = to 20 mg Amlodipine + Atorvastatin > than or = to 2.5/40 mg Ezetimibe + Simvastatin 10/80 mg Simvastatin 80mg Discharge Plan Admission Admit Date/Time: 07/08/24 11:37 Primary Reason for Your Visit: Daibetic left 4th [place] OSTEOMYELITIS Attending Provider: Hubert Breen Primary Care Provider: Vee Montana NP Consulting Providers: Ty Caba; Ronal Rodríguez; Sunday Pollock; Nilay Montoya; Peter Dickens Discharge Orders/Prescriptions Prescriptions: New metronidazole 500 mg Tablet 500 mg PO TID 42 Days Qty: 126 0RF atorvastatin 40 mg Tablet 40 mg PO QHS 30 Days Qty: 30 2RF levofloxacin 750 mg tablet 750 mg PO Q48H 42 Days Qty: 21 0RF Continued metoprolol tartrate 25 mg tablet 25 mg PO BID furosemide 20 mg tablet 20 mg PO DAILY aspirin [Adult Low Dose Aspirin] 81 mg tablet,delayed release (DR/EC) 81 mg PO DAILY nitroglycerin 0.4 mg tablet, sublingual 0.4 mg sublingual Q5-15M PRN (Reason: chest pain) Rx Instructions: do not exceed 3 doses per episode fluticasone propionate 50 MCG blister with device 2 puff IH DAILY clopidogrel 75 MG tablet 75 mg PO DAILY albuterol sulfate 1 INHALER inhaler 1 - 2 puff INHALATION Q4H PRN PRN (Reason: Wheezing) duloxetine 20 mg capsule,delayed release(DR/EC) 30 mg PO DAILY metformin 500 mg tablet extended release 24 hr 1,000 mg PO BID oxycodone 5 mg Tablet 10 mg PO Q4H PRN PRN (Reason: Pain Score 1-10) 4 Days Qty: 30 0RF (DME) pen needle, diabetic [BD Ultra-Fine Short Pen Needle] 31 gauge x 5/16 needle See Rx Instructions .Route Qty: 100 3RF Rx Instructions: Please inject long-acting insulin glargine twice daily (DME) lancets-blood glucose strips 32 gauge kit See Rx Instructions .Route Qty: 300 0RF Rx Instructions: Check glucose twice daily, once in the morning and once at bedtime gabapentin 300 mg capsule 300 mg PO TID Changed acetaminophen 500 mg tablet 1,000 mg PO Q8H PRN (Reason: pain) 30 Days Qty: 0 0RF insulin glargine-yfgn 100 unit/mL (3 mL) Insulin Pen 30 unit subcut DAILY 30 Days Qty: 0 0RF amlodipine 5 mg tablet 10 mg PO DAILY 30 Days Qty: 0 0RF glimepiride 4 mg tablet 4 mg PO BIDCM 30 Days Qty: 0 0RF Referrals / Follow Up: Nilay Montoya MD [Med Staff - Consulting] - Within 1 Month Natali Orosco DPM [Med Staff - Active Staff] - Within 1 Week Sunday Pollock MD [Med Staff - Active Staff] - Within 1 Month Vee Montana NP, FREEZER PERSON-C [Primary Care Provider] - Disposition Disposition (needs filled in before D/C Order can be placed): Home Health Service Charges/Coding Visit Charges Inpatient E&M: 10120 Disch Hosp >30min
== END 2024-07-15 14:35 | disposition home health service (06) | DRG 638 ==
LOC: ED 11:44 → MS3 12:32
PROVIDERS: Internal Medicine Nephrology; Podiatrist; Admitting Provider Family Medicine; Emergency Provider Surgery; PCP Nurse Practitioner Family; Visit Provider Internal Medicine
DX: E11.69 Type 2 diabetes mellitus with other specified complication (principal); L03.116 Cellulitis of left lower limb; E87.1 Hypo-osmolality and hyponatremia; M86.171 Other acute osteomyelitis, right ankle and foot; M86.172 Other acute osteomyelitis, left ankle and foot; E11.42 Type 2 diabetes mellitus with diabetic polyneuropathy; L97.514 Non-pressure chronic ulcer of other part of right foot with necrosis of bone; B96.89 Other specified bacterial agents as the cause of diseases classified elsewhere; I10 Essential (primary) hypertension; E11.51 Type 2 diabetes mellitus with diabetic peripheral angiopathy without gangrene; L97.524 Non-pressure chronic ulcer of other part of left foot with necrosis of bone; N17.9 Acute kidney failure, unspecified; E11.65 Type 2 diabetes mellitus with hyperglycemia; E78.00 Pure hypercholesterolemia, unspecified; Z79.4 Long term (current) use of insulin; I25.10 Atherosclerotic heart disease of native coronary artery without angina pectoris; Z89.421 Acquired absence of other right toe(s); I25.84 Coronary atherosclerosis due to calcified coronary lesion; Z79.02 Long term (current) use of antithrombotics/antiplatelets; Z79.84 Long term (current) use of oral hypoglycemic drugs; Z79.82 Long term (current) use of aspirin; Z95.5 Presence of coronary angioplasty implant and graft; Z79.891 Long term (current) use of opiate analgesic; Z79.51 Long term (current) use of inhaled steroids; Z79.899 Other long term (current) drug therapy; Z79.85 Long-term (current) use of injectable non-insulin antidiabetic drugs; Z83.3 Family history of diabetes mellitus; Z79.2 Long term (current) use of antibiotics; Z95.1 Presence of aortocoronary bypass graft; Z91.198 Patient's noncompliance with other medical treatment and regimen for other reason
CPT/HCPCS: 36415; 73630; 73718; 76770; 80048; 80202; 81001; 82570; 82962; 83036; 84300; 85025; 85652; 86140; 86160; 87040; 87070; 87075; 87077; 87186; 87205; 87640; 93970; 97802; 97803; 99284; J7030; J7040; A4216; J2405

== ENCOUNTER → 2024-08-07 23:59 | Outpatient (RCR) | payer BC, SELFPAY ==
[2021-11-12 13:02] LABS: Erythrocyte Sedimentation Rate 7 mm/hr (0-20)
[2021-11-12 13:04] LABS: Hematocrit 31.5 % (40-54); Hemoglobin 10.3 g/dL (13.0-16.5); Mean Corp Hgb Conc 32.7 g/dL (32-36); Mean Corpuscular Hgb 26.3 pg (27.0-32.0); Mean Corpuscular Volume 80.6 fL (80-94); Mean Platelet Vol. 9.8 fl (6.2-12.0); Platelet Count 173 K/mm3 (150-450); RBC Distribution Width CV 14.2 % (11.6-14.6); RBC Distribution Width SD 41.8 fl (35.1-43.9); Red Blood Count 3.91 M/mm3 (4.6-6.2); White Blood Count 6.6 K/mm3 (4.4-11.0)
[2021-11-12 13:12] LABS: Anion Gap 9 (5-15); BUN 12 mg/dL (7-18); BUN/Creat Ratio 11.3 RATIO (10-20); Calcium,Total 7.5 mg/dL (8.5-10.1); Chloride 113 mmol/L (98-107); Creatinine, Serum 1.06 mg/dL (0.70-1.30); EST Glomerular Filtration Rate 75 mL/min (>60); Est Glom Filt Rate - Afr Amer 91 mL/min (>60); Glucose 148 mg/dL (74-106); Potassium 3.3 mmol/L (3.5-5.1); Sodium Level 142 mmol/L (136-145)
== END ==
LOC: HH 11-12 11:56
PROVIDERS: PCP Family Medicine; Visit Provider Podiatrist
DX: Z48.01 Encounter for change or removal of surgical wound dressing (principal)
CPT/HCPCS: 80048; 85027; 85652

== ENCOUNTER 2024-12-18 12:42 | Emergency (ER) | payer MEDICARE, SELFPAY ==
[2024-12-18 12:43] VITALS: BP 161/88; PULSE 76; RESP 18; TEMP 37.2; O2SAT 96; BMI 32.8
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
[2024-12-18 13:35] VITALS: BP 156/97; PULSE 76; RESP 18; TEMP 37.2; O2SAT 96
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
== END 2024-12-18 13:42 | disposition home or self-care (01) ==
PROVIDERS: Emergency Provider Emergency Medicine; PCP Nurse Practitioner Family; Visit Provider Emergency Medicine
DX: S16.1XXA Strain of muscle, fascia and tendon at neck level, initial encounter (principal); E11.51 Type 2 diabetes mellitus with diabetic peripheral angiopathy without gangrene; E11.42 Type 2 diabetes mellitus with diabetic polyneuropathy; E11.22 Type 2 diabetes mellitus with diabetic chronic kidney disease; N18.32 Chronic kidney disease, stage 3b; I12.9 Hypertensive chronic kidney disease with stage 1 through stage 4 chronic kidney disease, or unspecified chronic kidney disease; E78.5 Hyperlipidemia, unspecified; J45.909 Unspecified asthma, uncomplicated; I25.10 Atherosclerotic heart disease of native coronary artery without angina pectoris; I25.2 Old myocardial infarction; Z95.5 Presence of coronary angioplasty implant and graft; Z95.1 Presence of aortocoronary bypass graft; V49.40XA Driver injured in collision with unspecified motor vehicles in traffic accident, initial encounter
CPT/HCPCS: 72050; 99284